=== PATIENT | male | born 1950 | race Caucasian/White ===

== ENCOUNTER 2024-02-12 12:04 | Emergency (ER) | payer MEDICARE, OTHER, SELFPAY ==
[2024-02-12 12:28] VITALS: BP 121/80
[2024-02-12 12:58] LABS: ALT (SGPT) 24 U/L (0-50); AST (SGOT) 32 U/L (17-59); Albumin 4.1 g/dl (3.5-5.0); Alkaline Phosphatase 192 U/L (38-126); Blood Urea Nitrogen 22 mg/dl (9-20); Calcium 9.3 mg/dl (8.4-10.2); Carbon Dioxide 24 mmol/L (22-30); Chloride 100 mmol/L (98-107); Glucose 141 mg/dl (70-99); Potassium 4.2 mmol/L (3.5-5.1); Sodium 136 mmol/L (135-145); Total Bilirubin 1.7 mg/dl (0.2-1.3); Total Protein 6.8 g/dl (6.3-8.2); eGFR > 60.00
[2024-02-12 12:59] LABS: COVID-19 Antigen Negative (Negative)
[2024-02-12 13:02] LABS: % Basophils 0.4 % (0-2); % Eosinophils 0.4 % (0-6); % Lymphocytes 5.2 % (20.5-51.1); % Monocytes 7.9 % (1.7-9.3); % Neutrophils 85.1 % (42.2-75.2); Absolute Basophils 0.1 10^3/uL (0-0.2); Absolute Eosinophils 0.1 10^3/uL (0-0.7); Absolute Immature Granulocytes 0.2 10^3/uL (0-0.05); Absolute Lymphocytes 0.9 10^3/uL (1.2-3.4); Absolute Monocytes 1.3 10^3/uL (0.1-0.6); Absolute Neutrophils 14.1 10^3/uL (1.4-6.5); Hematocrit 39.3 % (39.0-52.0); Hemoglobin 13.8 g/dL (13.0-18.0); Mean Corp Hgb Conc. 35.1 g/dL (33.0-37.0); Mean Corpuscular Hgb 33.3 pg (27.0-31.0); Mean Corpuscular Volume 94.7 fL (80.0-94.0); Mean Platelet Volume 12.9 fL (7.4-10.4); Nucleated Red Blood Cells % 0 % (-); Platelet Count 148 10^3/uL (130-400); Red Blood Cell Count 4.15 10^6/uL (4.70-6.10); Red Cell Dist. Width 14.6 % (11.5-14.5); White Blood Cell Count 16.5 10^3/uL (4.8-10.8)
[2024-02-12 16:30] VITALS: BP 124/68
[2024-02-12 18:14] LABS: Urine Albumin Negative (Neg - Trace); Urine Bilirubin Negative (Negative); Urine Character Clear (Clear); Urine Color Yellow; Urine Glucose Negative (Negative); Urine Ketone Negative (Negative); Urine Leukocyte Negative (Negative); Urine Nitrite Negative (Negative); Urine Occult Blood Negative (Negative); Urine Urobilinogen Negative (Neg - 1+)
[2024-02-12] MEDS: AUGMENTIN 875 MG/125 MG 1 TABLET PO (19:10)
[2024-02-12] MEDS: ZITHROMAX 500 MG PO (19:10)
[2024-02-12 19:18] VITALS: BP 119/74
--- NOTE | 2024-02-12 23:39 | ED.GENMED ---
History of Present Illness
General
Chief Complaint: Cold/Flu/URI Symptoms
Source: patient
Exam Limitations: none
Time Seen by Provider: 02/12/24 15:43
Nursing documentation reviewed up to this point in time: agreed with
History of Present Illness
History of Present Illness:
Patient to ED wt complaint of right flank pain. Pain started 2 days ago but became worse today. Denies fevver/chills. Reports history of kidney stones in past. Brought self to ED for eval.
Past History
Past History
ED Past Medical History: CAD, HTN, OR and Other (Liver transplant)
ED Past Surgical History: Other (liver transplant, AAA)
Social History
Tobacco: Smoker
Alcohol: Former
Drug: None
Personal:
Living: with family
Employment: Not employed
Family History
Family History: CAD and Other (Noncontributory)
Review of Systems
Review of Systems
Allergies reviewed?: Yes
All Other Systems: ROS reviewed and negative except as documented in HPI and ROS
Constitutional: Reports no symptoms
EENT: Reports no symptoms
Respiratory: Reports no symptoms
Cardiac: Reports no symptoms
ABD/GI: Reports no symptoms
: Reports flank pain
Musculoskeletal: Reports no symptoms
Skin: Reports no symptoms
Neurological: Reports no symptoms
Psychiatric: Reports no symptoms
Phy Exam
General Physical Exam
General Presentation: well appearing and no apparent distress
General age: appears stated age
General Skin: warm and dry
General Habitus: normal
General Mental: alert
General Hydration: appears well hydrated
Cardiovascular Exam
Cardiovascular Exam: regular rate/rhythm and no edema
Pulmonary Exam
Pulmonary Exam: lungs clear, no respiratory distress and chest non tender
Gastrointestinal Exam
Gastrointestinal Exam: normal bowel sounds, non tender, soft and no organomegaly
Musculoskeletal Exam
Musculoskeletal Exam: full ROM and neuro vasc intact
Skin Exam
Skin Exam: normal color, warm/dry and no rash
Psychiatric Exam
Psychiatric Exam: normal mood/affect
Course
Orders/Labs/Results
Orders:
Orders
02/12/24 12:37
COVID-19 Antigen Urgent
Source: Nasal Swab
Complete Blood Count/With Diff Urgent
Comprehensive Metabolic Panel Urgent
Influenza A+B Rapid Molecular Urgent
KIMMY Source: Nasal Swab
Specimen Description:
02/12/24 16:41
CT Abd/pel Without Iv Or Oral Urgent
Comment:
Reason For Exam: right flank pain
02/12/24 18:09
Urinalysis Reflex To Culture Urgent
Date Specimen was Collected: 02/12/24
Time Specimen was Collected: 18:08
02/12/24 18:10
CR Chest - 2 Views Urgent
Comment:
Reason For Exam: cough
02/12/24 18:58
Amoxicillin 875 mg/Clav 125 mg [Augmentin 875 mg/125 mg] 1 tablet PO NOW STA
02/12/24 19:01
Azithromycin [Zithromax] 500 mg PO NOW STA
Abnormal Lab Results
02/12/24
12:37
WBC 16.5 H 10^3/uL
(4.8-10.8)
RBC 4.15 L 10^6/uL
(4.70-6.10)
MCV 94.7 H fL
(80.0-94.0)
MCH 33.3 H pg
(27.0-31.0)
RDW 14.6 H %
(11.5-14.5)
MPV 12.9 H fL
(7.4-10.4)
Abs Immat Gran (auto) 0.2 H 10^3/uL
(0-0.05)
Absolute Neuts (auto) 14.1 H 10^3/uL
(1.4-6.5)
Absolute Lymphs (auto) 0.9 L 10^3/uL
(1.2-3.4)
Absolute Monos (auto) 1.3 H 10^3/uL
(0.1-0.6)
Immature Gran % 1.0 H %
(0-0.5)
Neutrophils % 85.1 H %
(42.2-75.2)
Lymphocytes % 5.2 L %
(20.5-51.1)
BUN 22 H mg/dl
(9-20)
Glucose 141 H mg/dl
(70-99)
Total Bilirubin 1.7 H mg/dl
(0.2-1.3)
Alkaline Phosphatase 192 H U/L
(38-126)
02/12/24 12:37
02/12/24 12:37
Vital Signs
Initial and Last Documented VS:
Initial Vital Signs
Temp Pulse Resp BP Pulse Ox
100.4 F H 94 18 121/80 94
02/12/24 12:28 02/12/24 12:28 02/12/24 12:28 02/12/24 12:28 02/12/24 12:28
Last Documented Vital Signs
Temp Pulse Resp BP Pulse Ox
100.4 F H 69 20 119/74 98
02/12/24 12:28 02/12/24 19:18 02/12/24 19:18 02/12/24 19:18 02/12/24 19:18
*Radiology
Radiology exam reviewed: radiology read reviewed
*Pulse Oximetry
Patient hypoxic: no
*Critical Care Note
Total Time (30-74mins, 75-104mins- exclusive of procedures): Not Applicable
Update Note
Update Note:
CT report reviewed. No evidence of renal stones, however finding of opacity to left lung base concerning for pneumonia. CXR obtained which confirms findings. He is afebrile. No respiratory distress. Pulse ox 97% RA. Reports occasional cough but
states he just stopped smoking and coughing has decreased. Labs reviewed. WBC 16. WIll [address] on augmentin in dept. Rx sent to his pharmacy. Given instructions on s/s to return to ED and he is agreeable to plan.
ED Attending Note
-
Portions of this chart may have been created with voice recognition software.� Occasional wrong word or��sound alike� substitutions may have occurred due to the inherent limitations of voice recognition software.
Discharge Plan
Departure
Patient Disposition: Home (Routine Discharge)
Date of Disposition: 02/12/24
Time of Disposition: 18:59
Patient with high blood pressure during this ER visit?: No
Condition: Good
Covid-19: Not Applicable
Discharge Problem:
Pneumonia
Instructions: Pneumonia
Prescriptions:
New
amoxicillin-pot clavulanate 875-125 mg tablet
1 tab PO BID Qty: 20 0RF
azithromycin [Zithromax] 250 mg tablet
250 mg PO DAILY Qty: 4 0RF
No Action
multivitamin [One Daily Multivitamin] 1 EACH tablet
1 ea PO DAILY
calcium carbonate-vitamin D3 [Calcium 500 + D] 1 EACH tablet
500 mg PO BID
tamsulosin 0.4 MG capsule
0.4 mg PO DAILY
Patient Comments:
pt states that his MD d/c'd yet he still takes to finish his supply
tacrolimus 1 MG capsule
0.5 mg PO BID
albuterol sulfate [Proventil HFA] 90 MCG/PUFF HFA aerosol inhaler
2 puff PRN PRN (Reason: SOB)
Patient Comments:
daily prn
tiotropium bromide [Spiriva Respimat] 1 PUFF mist
2 puff inhalation DAILY
Bydesonide
2 inhalation BID
atorvastatin 40 MG tablet
40 mg PO QPM Qty: 30 6RF
clopidogrel 75 MG tablet
75 mg PO DAILY Qty: 30 11RF
pantoprazole 40 MG tablet,delayed release (DR/EC)
40 mg PO DAILY Qty: 30 3RF
metoprolol succinate 25 MG tablet extended release 24 hr
25 mg PO DAILY Qty: 30 3RF
lisinopril 2.5 MG tablet
2.5 mg PO DAILY Qty: 30 3RF
apixaban [Eliquis] 5 MG tablet
5 mg PO BID Qty: 60 3RF
prednisone 10 MG tablet
10 mg PO .TAPER Qty: 30 0RF
Rx Instructions:
Take 40mg daily x3days, 30mg daily x3days,
20mg daily x3days, 10mg daily x3days.
tramadol 50 MG tablet
50 mg PO Q6HPRN PRN (Reason: pain) Qty: 8 0RF
oxycodone 5 MG tablet
5 mg PO Q4HPRN PRN (Reason: Pain) Qty: 12 0RF
cyclobenzaprine 5 mg tablet
5 mg PO HS PRN (Reason: muscle spasm) Qty: 10 0RF
acetaminophen-codeine 300-30 mg tablet
1 tab PO Q8H Qty: 10 0RF
Referrals:
UNKNOWN - PT DOES,NOT KNOW [Family Provider] -
Activity Restrictions/Additional Instructions:
Return to the emergency department immediately for any changes in/worsening of your symptoms.
Interventions
Interventions:
*Risk Screen - Suicide Last Done: 02/12/24 12:32
*General Assessment Last Done: 02/12/24 17:00
*Neglect/Abuse Screening Last Done: 02/12/24 17:00
*ED COVID-19 Vaccine History Last Done: 02/12/24 17:00
*Nursing Disposition Last Done: 02/12/24 19:18
ED- Pulmonary Assessment Last Done: 02/12/24 17:00
Discharge Date and Time
Discharge Date/Time: 02/12/24 19:19
Print Language: INDONESIAN
== END 2024-02-12 19:19 | disposition home or self-care (01) ==
LOC: EMR 12:04
PROVIDERS: Emergency Medicine; Nurse Practitioner; EMERGENCY PHYSICIAN Student in an Organized Health Care Education/Training Program
DX: J18.9 Pneumonia, unspecified organism (principal); I25.10 Atherosclerotic heart disease of native coronary artery without angina pectoris; I10 Essential (primary) hypertension; I25.2 Old myocardial infarction; Z94.4 Liver transplant status; F17.200 Nicotine dependence, unspecified, uncomplicated
CPT/HCPCS: 99284; 71046; 74176; 80053; 81003; 85025; 87502; 87811

== ENCOUNTER 2024-04-28 08:00 | Inpatient (IN) | payer MEDICARE, OTHER, SELFPAY ==
[2024-04-25] VITALS (13 sets, daily range): BP systolic 95–177; BP diastolic 59–103; BMI 28.9; BMI 28.1
[2024-04-25 09:08] LABS: Hematocrit 36.3 % (39.0-52.0); Hemoglobin 12.7 g/dL (13.0-18.0); Mean Corpuscular Hgb 32.8 pg (27.0-31.0); Mean Corpuscular Volume 93.8 fL (80.0-94.0); Mean Platelet Volume 12.5 fL (7.4-10.4); Platelet Count 216 10^3/uL (130-400); Red Blood Cell Count 3.87 10^6/uL (4.70-6.10); Red Cell Dist. Width 14.4 % (11.5-14.5); White Blood Cell Count 32.8 10^3/uL (4.8-10.8)
[2024-04-25 09:23] LABS: ALT (SGPT) 31 U/L (0-50); AST (SGOT) 46 U/L (17-59); Alkaline Phosphatase 264 U/L (38-126); Blood Urea Nitrogen 39 mg/dl (9-20); Carbon Dioxide 19 mmol/L (22-30); Chloride 103 mmol/L (98-107); Glucose 216 mg/dl (70-99); Lipase 58 U/L (23-300); Potassium 4.7 mmol/L (3.5-5.1); Sodium 135 mmol/L (135-145); Total Bilirubin 2.1 mg/dl (0.2-1.3); Total Protein 5.9 g/dl (6.3-8.2); eGFR 41.78
[2024-04-25 09:37] LABS: % Basophils 0.2 % (0-2); % Immature Granulocytes 1.5 % (0-0.5); % Monocytes 5.7 % (1.7-9.3); % Neutrophils 89.6 % (42.2-75.2); Absolute Basophils 0.1 10^3/uL (0-0.2); Absolute Immature Granulocytes 0.5 10^3/uL (0-0.05); Absolute Monocytes 1.9 10^3/uL (0.1-0.6); Absolute Neutrophils 29.4 10^3/uL (1.4-6.5); Nucleated Red Blood Cells % 0 % (-)
[2024-04-25 09:45] LABS: COVID-19 Antigen Negative (Negative)
[2024-04-25] MEDS: NSS 1000 IV ×2 (09:45→21:55)
[2024-04-25 10:13] LABS: Lactic Acid 2.2 mmol/L (0.7-2.0)
--- NOTE | 2024-04-25 11:02 | ED.GENMED ---
History of Present Illness
<Javier Moore Jr., PA-C - Last Filed: 04/28/24 18:42>
General
Chief Complaint: Fever
Source: patient and family
Exam Limitations: none
Time Seen by Provider: 04/25/24 09:26
Nursing documentation reviewed up to this point in time: agreed with
History of Present Illness
History of Present Illness:
73-year-old male with past medical history of Alzheimer's, COPD, AAA, CAD, cirrhosis presenting to the emergency department today with concerns of bodyaches fever runny nose decreased oral intake over the past 4 days. Symptoms have not been
improving have not significant been worsening either. Denies shortness of breath chest pain abdominal pain denies any significant discomfort at this point. Has a mild cough.
Past History
<Javier Moore Jr., PA-C - Last Filed: 04/28/24 18:42>
Past History
ED Past Medical History: CAD, HTN, NE and Other (Liver transplant)
ED Past Surgical History: Other (liver transplant, AAA)
Social History
Tobacco: Smoker
Alcohol: Former
Drug: None
Personal:
Living: with family
Employment: Not employed
Family History
Family History: CAD and Other (Noncontributory)
Review of Systems
<Javier Moore Jr., PA-C - Last Filed: 04/28/24 18:42>
Review of Systems
Allergies reviewed?: Yes
All Other Systems: ROS reviewed and negative except as documented in HPI and ROS
Phy Exam
<RADHA Tracy Jr. Last Filed: 04/28/24 18:42>
Physical Exam
Physical Exam:
GENERAL: Alert , in no apparent distress
EYE: pupils equal and reactive
NECK: Supple, no significant adenopathy.
ENT: Swollen boggy nasal turbinates o/p clr, mmm.
CARDIAC: Regular rate and rhythm .
LUNGS: Clear breath sounds bilaterally, no acute respiratory distress, no wheezes/rales/rhonchi
ABDOMEN: Soft, without focal tenderness, no r/g, no cvat
NEUROLOGICAL: Alert and oriented, no focal neuro deficits
SKIN: Warm and dry, skin intact.
MUSCULOSKELETAL: No edema, well perfused.
PSYCH: Normal and appropriate interaction.
Course
<Javier Moore Jr., PA-C - Last Filed: 04/28/24 18:42>
Orders/Labs/Results
Orders:
Orders
04/25/24
DIETARY CONSULT Routine
Reason for Consult: weight loss without trying
04/25/24 08:58
COVID-19 Antigen Urgent
Source: Nasal Swab
Complete Blood Count/With Diff Urgent
Comprehensive Metabolic Panel Urgent
Lipase Urgent
Influenza A+B Rapid Molecular Urgent
IKMMY Source: Nasal Swab
Specimen Description:
04/25/24 09:28
0.9% Sodium Chloride 1000 ml [Nss] 1,000 ml IV BOLUS
04/25/24 09:36
Chest [CR Chest - 2 Views ] Urgent
Comment:
Reason For Exam: cough
04/25/24 09:51
Lactic Acid Urgent
04/25/24 13:24
CT Abd/Pel (IV only)-DH only Urgent
Comment:
Reason For Exam: fever, leukocystosis, diff unrianting abd pain
0.9% Sodium Chloride 500 ml [Nss] 500 ml IV BOLUS
04/25/24 Dinner
Clear Liquid
At Your Request: Limited Participation
04/25/24 15:59
Lactate Level [Lactic Acid] Urgent
Blood Culture Q30M
KIMMY Source: Blood/Venous
Specimen Description:
Blood Culture Q30M
KIMMY Source: Blood/Venous
Specimen Description:
04/25/24 17:36
Urinalysis Reflex To Culture Urgent
Date Specimen was Collected: 04/25/24
Time Specimen was Collected: 13:21
Urine Microscopic Reflex Cult Urgent
Urine Culture Urgent
KIMMY Source: U
Specimen Description:
Date Specimen was Collected: 04/25/24
Time Specimen was Collected: 13:21
04/25/24 18:51
Admit/Transfer Patient As Directed
Co-Sign Provider:
Level of Care: Observation services
Assign to:: Medical/Surgical
Physician / Group: helena
Diagnosis: viral enteritis
PRN Pain Medication Management As Directed
May give lesser potent ordered pain med per pt: Yes
preference::
Protocol:: Medication orders for pain may be administered in a
manner that supports deferring to patient preference
when the pt is:
- Requesting an ordered lesser potent pain medication.
Least to most potent pain medications are defined
as: acetaminophen < NSAID < tramadol < opioids
(morphine, oxycodone, hydromorphone).
- Requesting a lesser dose of the same medication IF
ORDERED.
- Requesting a less intrusive route of administration
if both routes are prescribed by the provider (PO <
IV).
04/25/24 18:52
Code Status As Directed
Resuscitation Status: Do not resuscitate
Reached after discussion with pt or family/Healthcare POA: Yes
DNR Bracelet Application ONCE
04/25/24 19:53
0.9% Sodium Chloride 1000 ml [Nss] 1,000 ml IV 80 mls/hr
HYDROmorphone [Dilaudid] 0.5 mg IV Q4HPRN PRN
Ondansetron Injectable [Zofran] 4 mg IV Q6HPRN PRN
04/25/24 19:53
Activity As Directed
Activity Level: As Tolerated
Vital Signs As Directed
Frequency: Per unit guidelines
DX Deep Vein Thrombosis Video Routine
04/25/24 20:00
Heparin 5,000 units SC Q12
04/25/24 21:05
Albuterol [ProAIR HFA INHALER] 2 puff INH R Q6HPRN PRN
04/25/24 22:00
Flush (0.9% Sodium Chloride) [Flush (Nss)] See Dose Instructions IV PER PROTOCOL
04/25/24 23:18
MRSA Screen Routine
KIMMY Source: Nose
Specimen Description:
Pt Screening Request from Fernanda Routine
04/26/24 00:36
Melatonin 5 mg PO NOW STA
04/26/24 06:52
Complete Blood Count/With Diff IN AM
Comprehensive Metabolic Panel IN AM
04/26/24 08:00
Apixaban [Eliquis] 5 mg PO BID
Atorvastatin [Lipitor] 40 mg PO DAILY
Calcium Carbonate/Vitamin D3 [Oscal 500 + D] 500 mg PO BID
Clopidogrel Bisulfate [Plavix] 75 mg PO DAILY
Fluticasone/Salmeterol 45/21 [Advair Hfa 45/21 Mcg Inhaler] 2 puff INH R BID
Magnesium l-Lactate [Mag-Tab Sr] 84 mg PO BID
Metoprolol Xl [Toprol Xl] 150 mg PO DAILY
Multivitamin [Theragran] 1 tablet PO DAILY
Pantoprazole [Protonix] 40 mg PO DAILY
Pregabalin [Lyrica] 200 mg PO BID
Tacrolimus [Prograf] 1.5 mg PO BID
Tiotropium [place] 2.5 Mcg [Spiriva Respimat 2.5 Mcg] 2 puff INH R DAILY
04/26/24 13:13
Request for Physical Therapy [NOTICE] Routine
04/26/24 22:00
Piperacillin/Tazo 3.375 Gram [Zosyn] 3.375 gram in 50 ml IV Q6H
04/27/24 06:52
BMP [Basic Metabolic Panel] IN AM
CBC/No Diff [Complete Blood Count/No Diff] IN AM
04/27/24 09:49
Pt Eval And Treat Routine
Activity Level: As Tolerated
04/27/24 Lunch
Full Liquids
At Your Request: Full Participation
Does patient need a safe tray?: No
04/27/24 10:54
Oxycodone [Roxicodone] 5 mg PO Q4HPRN PRN
04/28/24 08:02
BMP [Basic Metabolic Panel] IN AM
CBC/No Diff [Complete Blood Count/No Diff] IN AM
04/28/24 13:34
Blood Culture Routine
KIMMY Source: Blood/Venous
Specimen Description:
Abnormal Lab Results
04/25/24 04/25/24 04/25/24
08:58 09:51 17:36
WBC 32.8 H 10^3/uL
(4.8-10.8)
RBC 3.87 L 10^6/uL
(4.70-6.10)
Hgb 12.7 L g/dL
(13.0-18.0)
Hct 36.3 L %
(39.0-52.0)
MCV
MCH 32.8 H pg
(27.0-31.0)
MPV 12.5 H fL
(7.4-10.4)
Abs Immat Gran (auto) 0.5 H 10^3/uL
(0-0.05)
Absolute Neuts (auto) 29.4 H 10^3/uL
(1.4-6.5)
Absolute Lymphs (auto) 1.0 L 10^3/uL
(1.2-3.4)
Absolute Monos (auto) 1.9 H 10^3/uL
(0.1-0.6)
Immature Gran % 1.5 H %
(0-0.5)
Neutrophils % 89.6 H %
(42.2-75.2)
Lymphocytes % 3.0 L %
(20.5-51.1)
Monocytes %
Sodium
Carbon Dioxide 19 L mmol/L
(22-30)
BUN 39 H mg/dl
(9-20)
Creatinine 1.7 H mg/dL
(0.7-1.3)
Glucose 216 H mg/dl
(70-99)
Lactic Acid 2.2 H mmol/L
(0.7-2.0)
Total Bilirubin 2.1 H mg/dl
(0.2-1.3)
Alkaline Phosphatase 264 H U/L
(38-126)
Total Protein 5.9 L g/dl
(6.3-8.2)
Albumin 3.0 L g/dl
(3.5-5.0)
Urine Bilirubin 1+ A
(Negative)
Leukocyte Esterase Rfl 1+ A
(Negative)
Urine Bacteria (Reflex) Few A
(Negative)
Urine Albumin (Reflex) 2+ A
(Neg - Trace)
04/26/24 04/27/24
06:52 06:52
WBC 24.6 H 10^3/uL 18.3 H 10^3/uL
(4.8-10.8) (4.8-10.8)
RBC 3.66 L 10^6/uL 3.55 L 10^6/uL
(4.70-6.10) (4.70-6.10)
Hgb 12.0 L g/dL 11.5 L g/dL
(13.0-18.0) (13.0-18.0)
Hct 34.1 L % 33.4 L %
(39.0-52.0) (39.0-52.0)
MCV 94.1 H fL
(80.0-94.0)
MCH 32.8 H pg 32.4 H pg
(27.0-31.0) (27.0-31.0)
MPV 12.6 H fL 12.1 H fL
(7.4-10.4) (7.4-10.4)
Abs Immat Gran (auto) 0.5 H 10^3/uL
(0-0.05)
Absolute Neuts (auto) 20.7 H 10^3/uL
(1.4-6.5)
Absolute Lymphs (auto) 0.9 L 10^3/uL
(1.2-3.4)
Absolute Monos (auto) 2.4 H 10^3/uL
(0.1-0.6)
Immature Gran % 2.2 H %
(0-0.5)
Neutrophils % 84.1 H %
(42.2-75.2)
Lymphocytes % 3.7 L %
(20.5-51.1)
Monocytes % 9.7 H %
(1.7-9.3)
Sodium 134 L mmol/L
(135-145)
Carbon Dioxide 17 L mmol/L 21 L mmol/L
(22-30) (22-30)
BUN 46 H mg/dl 31 H mg/dl
(9-20) (9-20)
Creatinine
Glucose 197 H mg/dl 212 H mg/dl
(70-99) (70-99)
Lactic Acid
Total Bilirubin
Alkaline Phosphatase 245 H U/L
(38-126)
Total Protein 5.7 L g/dl
(6.3-8.2)
Albumin 2.9 L g/dl
(3.5-5.0)
Urine Bilirubin
Leukocyte Esterase Rfl
Urine Bacteria (Reflex)
Urine Albumin (Reflex)
04/27/24 06:52
04/27/24 06:52
Vital Signs
Initial and Last Documented VS:
Initial Vital Signs
Temp Pulse Resp BP Pulse Ox
97.6 F 94 20 102/71 98
04/25/24 08:51 04/25/24 08:51 04/25/24 08:51 04/25/24 08:51 04/25/24 08:51
Last Documented Vital Signs
Temp Pulse Resp BP Pulse Ox
99.4 F 94 20 118/60 98
04/28/24 15:10 04/28/24 15:10 04/28/24 15:10 04/28/24 15:10 04/28/24 15:10
<Froy Velázquez, DO - Last Filed: 04/25/24 13:31>
Orders/Labs/Results
Orders:
Orders
04/25/24
DIETARY CONSULT Routine
Reason for Consult: weight loss without trying
04/25/24 08:58
COVID-19 Antigen Urgent
Source: Nasal Swab
Complete Blood Count/With Diff Urgent
Comprehensive Metabolic Panel Urgent
Lipase Urgent
Influenza A+B Rapid Molecular Urgent
KIMMY Source: Nasal Swab
Specimen Description:
04/25/24 09:28
0.9% Sodium Chloride 1000 ml [Nss] 1,000 ml IV BOLUS
04/25/24 09:36
Chest [CR Chest - 2 Views ] Urgent
Comment:
Reason For Exam: cough
04/25/24 09:51
Lactic Acid Urgent
04/25/24 13:24
CT Abd/Pel (IV only)-DH only Urgent
Comment:
Reason For Exam: fever, leukocystosis, diff unrianting abd pain
0.9% Sodium Chloride 500 ml [Nss] 500 ml IV BOLUS
04/25/24 Dinner
Clear Liquid
At Your Request: Limited Participation
04/25/24 15:59
Lactate Level [Lactic Acid] Urgent
Blood Culture Q30M
KIMMY Source: Blood/Venous
Specimen Description:
Blood Culture Q30M
KIMMY Source: Blood/Venous
Specimen Description:
04/25/24 17:36
Urinalysis Reflex To Culture Urgent
Date Specimen was Collected: 04/25/24
Time Specimen was Collected: 13:21
Urine Microscopic Reflex Cult Urgent
Urine Culture Urgent
KIMMY Source: U
Specimen Description:
Date Specimen was Collected: 04/25/24
Time Specimen was Collected: 13:21
04/25/24 18:51
Admit/Transfer Patient As Directed
Co-Sign Provider:
Level of Care: Observation services
Assign to:: Medical/Surgical
Physician / Group: helena
Diagnosis: viral enteritis
PRN Pain Medication Management As Directed
May give lesser potent ordered pain med per pt: Yes
preference::
Protocol:: Medication orders for pain may be administered in a
manner that supports deferring to patient preference
when the pt is:
- Requesting an ordered lesser potent pain medication.
Least to most potent pain medications are defined
as: acetaminophen < NSAID < tramadol < opioids
(morphine, oxycodone, hydromorphone).
- Requesting a lesser dose of the same medication IF
ORDERED.
- Requesting a less intrusive route of administration
if both routes are prescribed by the provider (PO <
IV).
04/25/24 18:52
Code Status As Directed
Resuscitation Status: Do not resuscitate
Reached after discussion with pt or family/Healthcare POA: Yes
DNR Bracelet Application ONCE
04/25/24 19:53
0.9% Sodium Chloride 1000 ml [Nss] 1,000 ml IV 80 mls/hr
HYDROmorphone [Dilaudid] 0.5 mg IV Q4HPRN PRN
Ondansetron Injectable [Zofran] 4 mg IV Q6HPRN PRN
04/25/24 19:53
Activity As Directed
Activity Level: As Tolerated
Vital Signs As Directed
Frequency: Per unit guidelines
DX Deep Vein Thrombosis Video Routine
04/25/24 20:00
Heparin 5,000 units SC Q12
04/25/24 21:05
Albuterol [ProAIR HFA INHALER] 2 puff INH R Q6HPRN PRN
04/25/24 22:00
Flush (0.9% Sodium Chloride) [Flush (Nss)] See Dose Instructions IV PER PROTOCOL
04/25/24 23:18
MRSA Screen Routine
KIMMY Source: Nose
Specimen Description:
Pt Screening Request from Fernanda Routine
04/26/24 00:36
Melatonin 5 mg PO NOW STA
04/26/24 06:52
Complete Blood Count/With Diff IN AM
Comprehensive Metabolic Panel IN AM
04/26/24 08:00
Apixaban [Eliquis] 5 mg PO BID
Atorvastatin [Lipitor] 40 mg PO DAILY
Calcium Carbonate/Vitamin D3 [Oscal 500 + D] 500 mg PO BID
Clopidogrel Bisulfate [Plavix] 75 mg PO DAILY
Fluticasone/Salmeterol 45/21 [Advair Hfa 45/21 Mcg Inhaler] 2 puff INH R BID
Magnesium l-Lactate [Mag-Tab Sr] 84 mg PO BID
Metoprolol Xl [Toprol Xl] 150 mg PO DAILY
Multivitamin [Theragran] 1 tablet PO DAILY
Pantoprazole [Protonix] 40 mg PO DAILY
Pregabalin [Lyrica] 200 mg PO BID
Tacrolimus [Prograf] 1.5 mg PO BID
Tiotropium [place] 2.5 Mcg [Spiriva Respimat 2.5 Mcg] 2 puff INH R DAILY
04/26/24 13:13
Request for Physical Therapy [NOTICE] Routine
04/26/24 22:00
Piperacillin/Tazo 3.375 Gram [Zosyn] 3.375 gram in 50 ml IV Q6H
04/27/24 06:52
BMP [Basic Metabolic Panel] IN AM
CBC/No Diff [Complete Blood Count/No Diff] IN AM
04/27/24 09:49
Pt Eval And Treat Routine
Activity Level: As Tolerated
04/27/24 Lunch
Full Liquids
At Your Request: Full Participation
Does patient need a safe tray?: No
04/27/24 10:54
Oxycodone [Roxicodone] 5 mg PO Q4HPRN PRN
04/28/24 08:02
BMP [Basic Metabolic Panel] IN AM
CBC/No Diff [Complete Blood Count/No Diff] IN AM
04/28/24 13:34
Blood Culture Routine
KIMMY Source: Blood/Venous
Specimen Description:
Abnormal Lab Results
04/25/24 04/25/24 04/25/24
08:58 09:51 17:36
WBC 32.8 H 10^3/uL
(4.8-10.8)
RBC 3.87 L 10^6/uL
(4.70-6.10)
Hgb 12.7 L g/dL
(13.0-18.0)
Hct 36.3 L %
(39.0-52.0)
MCV
MCH 32.8 H pg
(27.0-31.0)
MPV 12.5 H fL
(7.4-10.4)
Abs Immat Gran (auto) 0.5 H 10^3/uL
(0-0.05)
Absolute Neuts (auto) 29.4 H 10^3/uL
(1.4-6.5)
Absolute Lymphs (auto) 1.0 L 10^3/uL
(1.2-3.4)
Absolute Monos (auto) 1.9 H 10^3/uL
(0.1-0.6)
Immature Gran % 1.5 H %
(0-0.5)
Neutrophils % 89.6 H %
(42.2-75.2)
Lymphocytes % 3.0 L %
(20.5-51.1)
Monocytes %
Sodium
Carbon Dioxide 19 L mmol/L
(22-30)
BUN 39 H mg/dl
(9-20)
Creatinine 1.7 H mg/dL
(0.7-1.3)
Glucose 216 H mg/dl
(70-99)
Lactic Acid 2.2 H mmol/L
(0.7-2.0)
Total Bilirubin 2.1 H mg/dl
(0.2-1.3)
Alkaline Phosphatase 264 H U/L
(38-126)
Total Protein 5.9 L g/dl
(6.3-8.2)
Albumin 3.0 L g/dl
(3.5-5.0)
Urine Bilirubin 1+ A
(Negative)
Leukocyte Esterase Rfl 1+ A
(Negative)
Urine Bacteria (Reflex) Few A
(Negative)
Urine Albumin (Reflex) 2+ A
(Neg - Trace)
04/26/24 04/27/24
06:52 06:52
WBC 24.6 H 10^3/uL 18.3 H 10^3/uL
(4.8-10.8) (4.8-10.8)
RBC 3.66 L 10^6/uL 3.55 L 10^6/uL
(4.70-6.10) (4.70-6.10)
Hgb 12.0 L g/dL 11.5 L g/dL
(13.0-18.0) (13.0-18.0)
Hct 34.1 L % 33.4 L %
(39.0-52.0) (39.0-52.0)
MCV 94.1 H fL
(80.0-94.0)
MCH 32.8 H pg 32.4 H pg
(27.0-31.0) (27.0-31.0)
MPV 12.6 H fL 12.1 H fL
(7.4-10.4) (7.4-10.4)
Abs Immat Gran (auto) 0.5 H 10^3/uL
(0-0.05)
Absolute Neuts (auto) 20.7 H 10^3/uL
(1.4-6.5)
Absolute Lymphs (auto) 0.9 L 10^3/uL
(1.2-3.4)
Absolute Monos (auto) 2.4 H 10^3/uL
(0.1-0.6)
Immature Gran % 2.2 H %
(0-0.5)
Neutrophils % 84.1 H %
(42.2-75.2)
Lymphocytes % 3.7 L %
(20.5-51.1)
Monocytes % 9.7 H %
(1.7-9.3)
Sodium 134 L mmol/L
(135-145)
Carbon Dioxide 17 L mmol/L 21 L mmol/L
(22-30) (22-30)
BUN 46 H mg/dl 31 H mg/dl
(9-20) (9-20)
Creatinine
Glucose 197 H mg/dl 212 H mg/dl
(70-99) (70-99)
Lactic Acid
Total Bilirubin
Alkaline Phosphatase 245 H U/L
(38-126)
Total Protein 5.7 L g/dl
(6.3-8.2)
Albumin 2.9 L g/dl
(3.5-5.0)
Urine Bilirubin
Leukocyte Esterase Rfl
Urine Bacteria (Reflex)
Urine Albumin (Reflex)
04/27/24 06:52
04/27/24 06:52
Vital Signs
Initial and Last Documented VS:
Initial Vital Signs
Temp Pulse Resp BP Pulse Ox
97.6 F 94 20 102/71 98
04/25/24 08:51 04/25/24 08:51 04/25/24 08:51 04/25/24 08:51 04/25/24 08:51
Last Documented Vital Signs
Temp Pulse Resp BP Pulse Ox
99.4 F 94 20 118/60 98
04/28/24 15:10 04/28/24 15:10 04/28/24 15:10 04/28/24 15:10 04/28/24 15:10
<Yaima Heart PA-C - Last Filed: 04/26/24 00:49>
Orders/Labs/Results
Orders:
Orders
04/25/24
DIETARY CONSULT Routine
Reason for Consult: weight loss without trying
04/25/24 08:58
COVID-19 Antigen Urgent
Source: Nasal Swab
Complete Blood Count/With Diff Urgent
Comprehensive Metabolic Panel Urgent
Lipase Urgent
Influenza A+B Rapid Molecular Urgent
KIMMY Source: Nasal Swab
Specimen Description:
04/25/24 09:28
0.9% Sodium Chloride 1000 ml [Nss] 1,000 ml IV BOLUS
04/25/24 09:36
Chest [CR Chest - 2 Views ] Urgent
Comment:
Reason For Exam: cough
04/25/24 09:51
Lactic Acid Urgent
04/25/24 13:24
CT Abd/Pel (IV only)-DH only Urgent
Comment:
Reason For Exam: fever, leukocystosis, diff unrianting abd pain
0.9% Sodium Chloride 500 ml [Nss] 500 ml IV BOLUS
04/25/24 Dinner
Clear Liquid
At Your Request: Limited Participation
04/25/24 15:59
Lactate Level [Lactic Acid] Urgent
Blood Culture Q30M
KIMMY Source: Blood/Venous
Specimen Description:
Blood Culture Q30M
KIMMY Source: Blood/Venous
Specimen Description:
04/25/24 17:36
Urinalysis Reflex To Culture Urgent
Date Specimen was Collected: 04/25/24
Time Specimen was Collected: 13:21
Urine Microscopic Reflex Cult Urgent
Urine Culture Urgent
KIMMY Source: U
Specimen Description:
Date Specimen was Collected: 04/25/24
Time Specimen was Collected: 13:21
04/25/24 18:51
Admit/Transfer Patient As Directed
Co-Sign Provider:
Level of Care: Observation services
Assign to:: Medical/Surgical
Physician / Group: helena
Diagnosis: viral enteritis
PRN Pain Medication Management As Directed
May give lesser potent ordered pain med per pt: Yes
preference::
Protocol:: Medication orders for pain may be administered in a
manner that supports deferring to patient preference
when the pt is:
- Requesting an ordered lesser potent pain medication.
Least to most potent pain medications are defined
as: acetaminophen < NSAID < tramadol < opioids
(morphine, oxycodone, hydromorphone).
- Requesting a lesser dose of the same medication IF
ORDERED.
- Requesting a less intrusive route of administration
if both routes are prescribed by the provider (PO <
IV).
04/25/24 18:52
Code Status As Directed
Resuscitation Status: Do not resuscitate
Reached after discussion with pt or family/Healthcare POA: Yes
DNR Bracelet Application ONCE
04/25/24 19:53
0.9% Sodium Chloride 1000 ml [Nss] 1,000 ml IV 80 mls/hr
HYDROmorphone [Dilaudid] 0.5 mg IV Q4HPRN PRN
Ondansetron Injectable [Zofran] 4 mg IV Q6HPRN PRN
04/25/24 19:53
Activity As Directed
Activity Level: As Tolerated
Vital Signs As Directed
Frequency: Per unit guidelines
DX Deep Vein Thrombosis Video Routine
04/25/24 20:00
Heparin 5,000 units SC Q12
04/25/24 21:05
Albuterol [ProAIR HFA INHALER] 2 puff INH R Q6HPRN PRN
04/25/24 22:00
Flush (0.9% Sodium Chloride) [Flush (Nss)] See Dose Instructions IV PER PROTOCOL
04/25/24 23:18
MRSA Screen Routine
IKMMY Source: Nose
Specimen Description:
Pt Screening Request from Fernanda Routine
04/26/24 00:36
Melatonin 5 mg PO NOW STA
04/26/24 06:52
Complete Blood Count/With Diff IN AM
Comprehensive Metabolic Panel IN AM
04/26/24 08:00
Apixaban [Eliquis] 5 mg PO BID
Atorvastatin [Lipitor] 40 mg PO DAILY
Calcium Carbonate/Vitamin D3 [Oscal 500 + D] 500 mg PO BID
Clopidogrel Bisulfate [Plavix] 75 mg PO DAILY
Fluticasone/Salmeterol 45/21 [Advair Hfa 45/21 Mcg Inhaler] 2 puff INH R BID
Magnesium l-Lactate [Mag-Tab Sr] 84 mg PO BID
Metoprolol Xl [Toprol Xl] 150 mg PO DAILY
Multivitamin [Theragran] 1 tablet PO DAILY
Pantoprazole [Protonix] 40 mg PO DAILY
Pregabalin [Lyrica] 200 mg PO BID
Tacrolimus [Prograf] 1.5 mg PO BID
Tiotropium [place] 2.5 Mcg [Spiriva Respimat 2.5 Mcg] 2 puff INH R DAILY
04/26/24 13:13
Request for Physical Therapy [NOTICE] Routine
04/26/24 22:00
Piperacillin/Tazo 3.375 Gram [Zosyn] 3.375 gram in 50 ml IV Q6H
04/27/24 06:52
BMP [Basic Metabolic Panel] IN AM
CBC/No Diff [Complete Blood Count/No Diff] IN AM
04/27/24 09:49
Pt Eval And Treat Routine
Activity Level: As Tolerated
04/27/24 Lunch
Full Liquids
At Your Request: Full Participation
Does patient need a safe tray?: No
04/27/24 10:54
Oxycodone [Roxicodone] 5 mg PO Q4HPRN PRN
04/28/24 08:02
BMP [Basic Metabolic Panel] IN AM
CBC/No Diff [Complete Blood Count/No Diff] IN AM
04/28/24 13:34
Blood Culture Routine
KIMMY Source: Blood/Venous
Specimen Description:
Abnormal Lab Results
04/25/24 04/25/24 04/25/24
08:58 09:51 17:36
WBC 32.8 H 10^3/uL
(4.8-10.8)
RBC 3.87 L 10^6/uL
(4.70-6.10)
Hgb 12.7 L g/dL
(13.0-18.0)
Hct 36.3 L %
(39.0-52.0)
MCV
MCH 32.8 H pg
(27.0-31.0)
MPV 12.5 H fL
(7.4-10.4)
Abs Immat Gran (auto) 0.5 H 10^3/uL
(0-0.05)
Absolute Neuts (auto) 29.4 H 10^3/uL
(1.4-6.5)
Absolute Lymphs (auto) 1.0 L 10^3/uL
(1.2-3.4)
Absolute Monos (auto) 1.9 H 10^3/uL
(0.1-0.6)
Immature Gran % 1.5 H %
(0-0.5)
Neutrophils % 89.6 H %
(42.2-75.2)
Lymphocytes % 3.0 L %
(20.5-51.1)
Monocytes %
Sodium
Carbon Dioxide 19 L mmol/L
(22-30)
BUN 39 H mg/dl
(9-20)
Creatinine 1.7 H mg/dL
(0.7-1.3)
Glucose 216 H mg/dl
(70-99)
Lactic Acid 2.2 H mmol/L
(0.7-2.0)
Total Bilirubin 2.1 H mg/dl
(0.2-1.3)
Alkaline Phosphatase 264 H U/L
(38-126)
Total Protein 5.9 L g/dl
(6.3-8.2)
Albumin 3.0 L g/dl
(3.5-5.0)
Urine Bilirubin 1+ A
(Negative)
Leukocyte Esterase Rfl 1+ A
(Negative)
Urine Bacteria (Reflex) Few A
(Negative)
Urine Albumin (Reflex) 2+ A
(Neg - Trace)
04/26/24 04/27/24
06:52 06:52
WBC 24.6 H 10^3/uL 18.3 H 10^3/uL
(4.8-10.8) (4.8-10.8)
RBC 3.66 L 10^6/uL 3.55 L 10^6/uL
(4.70-6.10) (4.70-6.10)
Hgb 12.0 L g/dL 11.5 L g/dL
(13.0-18.0) (13.0-18.0)
Hct 34.1 L % 33.4 L %
(39.0-52.0) (39.0-52.0)
MCV 94.1 H fL
(80.0-94.0)
MCH 32.8 H pg 32.4 H pg
(27.0-31.0) (27.0-31.0)
MPV 12.6 H fL 12.1 H fL
(7.4-10.4) (7.4-10.4)
Abs Immat Gran (auto) 0.5 H 10^3/uL
(0-0.05)
Absolute Neuts (auto) 20.7 H 10^3/uL
(1.4-6.5)
Absolute Lymphs (auto) 0.9 L 10^3/uL
(1.2-3.4)
Absolute Monos (auto) 2.4 H 10^3/uL
(0.1-0.6)
Immature Gran % 2.2 H %
(0-0.5)
Neutrophils % 84.1 H %
(42.2-75.2)
Lymphocytes % 3.7 L %
(20.5-51.1)
Monocytes % 9.7 H %
(1.7-9.3)
Sodium 134 L mmol/L
(135-145)
Carbon Dioxide 17 L mmol/L 21 L mmol/L
(22-30) (22-30)
BUN 46 H mg/dl 31 H mg/dl
(9-20) (9-20)
Creatinine
Glucose 197 H mg/dl 212 H mg/dl
(70-99) (70-99)
Lactic Acid
Total Bilirubin
Alkaline Phosphatase 245 H U/L
(38-126)
Total Protein 5.7 L g/dl
(6.3-8.2)
Albumin 2.9 L g/dl
(3.5-5.0)
Urine Bilirubin
Leukocyte Esterase Rfl
Urine Bacteria (Reflex)
Urine Albumin (Reflex)
04/27/24 06:52
04/27/24 06:52
Vital Signs
Initial and Last Documented VS:
Initial Vital Signs
Temp Pulse Resp BP Pulse Ox
97.6 F 94 20 102/71 98
04/25/24 08:51 04/25/24 08:51 04/25/24 08:51 04/25/24 08:51 04/25/24 08:51
Last Documented Vital Signs
Temp Pulse Resp BP Pulse Ox
99.4 F 94 20 118/60 98
04/28/24 15:10 04/28/24 15:10 04/28/24 15:10 04/28/24 15:10 04/28/24 15:10
<Javier Moore Jr., PA-C - Last Filed: 04/28/24 18:42>
MDM/Problems Addressed
MDM/Problems Addressed:
73-year-old male presenting to the emergency department today with concerns of having upper respiratory symptoms and bodyaches over the past 4 days. On arrival vital signs are normal patient no obvious distress does have some findings on
examination consistent with a upper respiratory viral syndrome. Labs show significant leukocytosis of 32,000 additionally mild increase of creatinine level typically around 1-1.4 currently 1.7 here. Elevated BUN from baseline. Patient given
initial liter of fluid. Still unable to make urine not retaining with roughly 100 cc on bladder scan. Given additional 500 cc of fluid. Vital signs remained stable here. Concerning his significant white count without obvious source CT scan was
ordered.
<Yaima Heart PA-C - Last Filed: 04/26/24 00:49>
*Critical Care Note
Total Time (30-74mins, 75-104mins- exclusive of procedures): Not Applicable
<Yaima Heart PA-C - Last Filed: 04/26/24 00:49>
Update Note
Update Note:
Update: Received patient in signout. CT scan shows findings of possible enteritis/ileus with concerns of possible SBO. Patient with no vomiting and tolerating p.o. intake. Patient received 1.5 L IV fluids although unable to produce urine sample.
Bladder scan without evidence of urinary retention. Urine was obtained via straight cath which patient was agreeable to and shows no evidence of infection. Given evidence of significant dehydration including lactic acidosis�will plan to admit
patient to hospitalist for further management/hydration. Findings of enteritis on CT scan suggest possible underlying viral etiology. Although leukocytosis noted�given no evidence of bacterial infection today�will hold ABX pending urine and blood
cultures. Patient accepted to hospital service in stable condition.
ED Attending Note
<Javier Moore Jr., PA-C - Last Filed: 04/28/24 18:42>
-
Portions of this chart may have been created with voice recognition software.� Occasional wrong word or��sound alike� substitutions may have occurred due to the inherent limitations of voice recognition software.
<Froy Velázquez, DO - Last Filed: 04/25/24 13:31>
ED Attending Note
Patient seen and examined by attending physician: Yes
I performed the substantive portion of visit, reviewed & personally made and approve the management plan that is documented in note by myself or ANNA.: Yes
ED Attending Note:
I have seen and evaluated the patient with a [id number] encounter. I have spoken to the advance practicer provider and involved in the medical history, the physical exam, medical decision making.
Evaluation and management service: agree unless noted differently below.
Results interpretation: agree unless noted differently below.
Focused HPI: 73-year-old male presenting with shortness of breath. He does admit to a viral type syndrome with fevers and runny nose.
Physical exam: Team somewhat uncomfortable. No significant abdominal tenderness. No acute respiratory distress
Medical Decision Making: Patient found to have significant leukocytosis with elevated lactic acid. Chest x-ray clear. Viral testing negative. Will continue to search for infectious with urinalysis and CT abdomen/pelvis. Ultimately admit given
his lab abnormalities and his discomfort
Discharge Plan
Departure
Patient Disposition: Admit
Date of Disposition: 04/25/24
Time of Disposition: 18:19
Presentation/result/management discussed w/ accepting MD/DO: Hospitalist
Discharge Problem:
Enteritis, Acute lactic acidosis
Interventions
Interventions:
*Risk Screen - Suicide Last Done: 04/25/24 08:51
*General Assessment Last Done: 04/25/24 08:51
*Neglect/Abuse Screening Last Done: 04/25/24 08:51
*ED- Fall Risk Assessment Last Done: 04/25/24 09:57
*ED COVID-19 Vaccine History Last Done: 04/25/24 08:51
*Nursing Disposition Last Done: 04/25/24 19:41
ED- Neurological Assessment Last Done: 04/25/24 09:42
ED-Skin Assessment Last Done: 04/25/24 09:42
Discharge Date and Time
Discharge Date/Time: 04/25/24 19:41
[2024-04-25] MEDS: NSS 500 IV (13:31)
[2024-04-25 16:26] LABS: Lactic Acid 1.3 mmol/L (0.7-2.0)
[2024-04-25 17:55] LABS: Urine Albumin 2+ (Neg - Trace); Urine Bilirubin 1+ (Negative); Urine Character Clear (Clear); Urine Color Yellow; Urine Glucose Negative (Negative); Urine Ketone Negative (Negative); Urine Leukocyte 1+ (Negative); Urine Nitrite Negative (Negative); Urine Occult Blood Negative (Negative); Urine Urobilinogen 1+ (Neg - 1+)
[2024-04-25 18:02] LABS: Urine Squamous Cell 0-2 /LPF (Few)
[2024-04-25 18:03] LABS: Urine Bacteria Few (Negative); Urine Red Blood Cell 0-2 /HPF (0-2)
[2024-04-25 18:04] LABS: Urine Calcium Oxalate Crystals Seen; Urine Mucus Few
--- NOTE | 2024-04-25 18:55 | HPS.HSE ---
Family Physician
-
Family Physician: Odilia Velázquez
Chief Complaint
-
diarrhea
History of Present Illness
73-year-old male past medical history of paroxysmal atrial fibrillation, CAD, PVCs, alcoholic cirrhosis, hepatitis C status post liver transplant in 2006 at [facility], multiple bile duct stents, abdominal aortic aneurysm repair and [facility],
hypertension, COPD, presenting with feeling unwell for the past 4 days. He has been having fevers, nausea, decreased oral intake, diarrhea. He also has a mild cough and some shortness of breath. Denies chest pain. He has pain in his belly. He
did not eat anything today.
He had a large diarrhea episode yesterday and no diarrhea episodes today. He did not eat anything today.
He has a history of neuropathy in his feet but also is complaining of new onset tingling in his right upper extremity. Denies pain in his upper back. He also complains of pain in his lower back pain rating down the side of the right leg. He is
only complaining of the symptoms since lying here. Denies any facial droop, difficulty speaking or swallowing, weakness.
He is a former smoker. Drinks alcohol only occasionally.
Medical History
Past Medical History
Past Medical History: Reports Other (paroxysmal atrial fibrillation, CAD, PVCs, alcoholic cirrhosis, hepatitis C status post liver transplant in 2006 at [facility], multiple bile duct stents, abdominal aortic aneurysm repair and [facility],
hypertension, COPD,)
Past Surgical History: Reports Other (liver transplant, [facility]))
Social History
Tobacco: Former Smoker
Alcohol: Occasional
Drug: None
Family History
Family History: Not pertinent
Allergies / Home Medications
Allergies reflects when Allergies were last updated in [facility].
Home Medications with original date entered in [facility]
Allergy/Medication List:
Allergies
Allergy/AdvReac Type Severity Reaction Status Date / Time
No Known Allergies Allergy Verified 04/25/24 08:53
Home Medications
calcium 500 mg (as carbonate)-vitamin D3 10 mcg (400 unit) tablet (Calcium 500 + D) 500 mg PO BID 11/30/13
tacrolimus 1 mg capsule, immediate-release 0.5 mg PO BID 06/19/15
tiotropium bromide 2.5 mcg/actuation mist for inhalation (Spiriva Respimat) 2 puff inhalation DAILY 11/28/18
apixaban 5 mg tablet (Eliquis) 5 mg PO BID #60 tabs 11/30/18
clopidogrel 75 mg tablet 75 mg PO DAILY #30 tabs 11/30/18
lisinopril 2.5 mg tablet 2.5 mg PO DAILY #30 tabs 11/30/18
metoprolol succinate 25 mg tablet,extended release 24 hr 25 mg PO DAILY #30 tabs 11/30/18
pantoprazole 40 mg tablet,delayed release 40 mg PO DAILY #30 tabs 11/30/18
albuterol sulfate 90 mcg/actuation aerosol inhaler 2 puff inhalation Q6HPRN PRN sob 04/25/24
atorvastatin 80 mg tablet 40 mg PO DAILY 04/25/24
fluticasone 100 mcg-salmeterol 50 mcg/dose blistr powdr for inhalation 2 inh inhalation BID 04/25/24
lisinopril 10 mg tablet 10 mg PO DAILY 04/25/24
magnesium oxide 420 mg tablet 420 mg PO BID 04/25/24
pregabalin 200 mg capsule 200 mg PO BID 04/25/24
therapeutic multivitamin 1 tab PO DAILY 04/25/24
Review of Systems
-
History Source: Patient
A 12 point ROS was completed and negative except as noted: Yes
Constitutional: Reports No Symptoms
EENT: Reports No Symptoms
Respiratory: Reports See HPI
Cardiac: Reports No Symptoms
Abdomen/GI: Reports See HPI
: Reports No Symptoms
Musculoskeletal: Reports No Symptoms
Skin: Reports No Symptoms
Neurological: Reports No Symptoms
Endocrine: Reports No Symptoms
Hematologic/Lymphatic: Reports No Symptoms
Psych: Reports No Symptoms
Physical Exam
Vital Signs
Vital Signs
Temp Pulse Resp BP Pulse Ox
97.9 F 92 17 124/77 97
04/25/24 09:46 04/25/24 18:30 04/25/24 18:30 04/25/24 18:00 04/25/24 17:30
Physical Exam
General: Well Developed, Well Nourished and No Apparent Distress
HEENT: NormoCephalic, Moist mucous membranes and Atraumatic
Respiratory: Clear
Cardiac: S1/S2 and Regular Rhythm; No Murmur or Rub
GI: Soft, Non Tender, Non Distended and Normal Bowel Sounds; No Organomegaly
Rectal: Deferred by Provider
Musculoskeletal: No Clubbing, No Cyanosis and No Edema
Skin: No Rash
Neuro: Nonfocal/grossly intact
Laboratory Results
-
04/25/24 08:58
04/25/24 08:58
Laboratory Results
Lactic Acid 1.3 mmol/L (0.7-2.0) 04/25/24 15:59
Total Bilirubin 2.1 mg/dl (0.2-1.3) H 04/25/24 08:58
AST 46 U/L (17-59) 04/25/24 08:58
ALT 31 U/L (0-50) 04/25/24 08:58
Alkaline Phosphatase 264 U/L (38-126) H 04/25/24 08:58
Lipase 58 U/L (23-300) 04/25/24 08:58
Data Reviewed
-
Lab Data: Labs Reviewed by me
Old Records: Reviewed
Impression/Plan
-
IMPRESSION:
PLAN:
# Likely viral enteritis/ileus
-CT abdomen pelvis shows probable enteritis/ileitis, cannot rule out developing small bowel obstruction questionable transition point
-Chest x-ray unremarkable
-Flu and COVID-negative
-Check blood cultures
-IV fluids
-Advance diet as tolerated
# Acute kidney injury
-Creatinine 1.7
-IV fluids
-Hold lisinopril
# Right-sided cervical radiculopathy and lumbar radiculopathy
-Patient has some pain in his lower back suggesting lumbar radiculopathy
-Strength is preserved
-Doubt CVA based on the history
Paroxysmal atrial fibrillation
-Continue Eliquis
-Continue metoprolol
History of CAD
-Continue Plavix, statin
History of PVCs
Alcoholic cirrhosis
Hepatitis C status post liver transplant in 2006 and [facility]
-Continue tacrolimus
History of multiple bile duct stents
Abdominal aortic aneurysm status post repair at [facility]
Essential hypertension
Chronic neuropathy
-Continue pregabalin
COPD
DNR/DNI
DVT prophylaxis�heparin
Clear liquids
--- NOTE | 2024-04-25 19:06 | PHANOTE ---
[facility] TECH 04/25/24: PAT USES [facility] FOR MEDICATIONS. CONFIRMED MEDICATIONS THROUGH [facility] VISIT ON 04/18/24. Left unconfirmed medications that were not on the visit.
--- NOTE | 2024-04-25 21:20 | PTCARENOTE ---
Pt received from ED at 2044. Pt pleasant, AAOX3, VSS, and able to ambulate into room with cane and assistance. Bed and chair alarm placed and plugged in. Pt complains of nausea at this time, pt medicated with Zofran, see MAR. Pt receptive to room
and call costa. Pt bed in lowest position and call costa within reach. Pt educated on importance of call costa usage, pt relays understanding and cooperation. Will continue with current plan of care.
[2024-04-25] MEDS: ZOFRAN 4 MG IV (22:30)
--- NOTE | 2024-04-26 00:15 | FALL ---
Description of Fall: Pt rang to be assisted to be helped to the bathroom. Bed alarm intact at that time. Pt was assisted to stand with walker while RN stood behind him ready to walk to the bathroom. Pt started to fall toward his front right, away
from RN. RN attempted to catch pt, but as pt is large and heavy, pt hit wall with his Rt back and slid down to the floor onto his Rt buttock. Pt did not hit head. Pt was then assisted by 3 people up to chair. Pt complained of slight pain his Lt rib
area. DATA SECURITY ADMINISTRATOR notified. DATA SECURITY ADMINISTRATOR came up to see and assess pt.
Injuries Noted:
Slight redness noted on pt Rt back.
Action Taken:
DATA SECURITY ADMINISTRATOR notified. No new orders. Bed and chair alarm remain intact.
Name of Provider Notified: Valarie Elaine.
--- NOTE | 2024-04-26 00:45 | W.PN.UPDATE ---
Update Note
Progress Note Update
PT witnessed fall in bathroom.
Per RN, pt was ambulating with nurse to bathroom when pt leg became weaker and started sliding to floor. RN stated that his right side leaned against wall and she did her best to guide him down.PT had some lower back pain- but he does have chronic
back pain. Pt c/o of some tenderness to ant left rib area. Area not tender to touch. While pt in chair he stated pain isn't bad. ? pulled muscle from fall. Offered lidocaine patch. Pt currently declined. Consider xray of back if pain worsens. PT
does not feel it's any worse than his normal pains.
[2024-04-26] MEDS: MELATONIN 5 MG PO (00:50)
[2024-04-26 07:00] VITALS: BP 130/77
[2024-04-26 07:11] LABS: Hematocrit 34.1 % (39.0-52.0); Mean Corp Hgb Conc. 35.2 g/dL (33.0-37.0); Mean Corpuscular Hgb 32.8 pg (27.0-31.0); Mean Corpuscular Volume 93.2 fL (80.0-94.0); Mean Platelet Volume 12.6 fL (7.4-10.4); Platelet Count 250 10^3/uL (130-400); Red Blood Cell Count 3.66 10^6/uL (4.70-6.10); Red Cell Dist. Width 14.5 % (11.5-14.5); White Blood Cell Count 24.6 10^3/uL (4.8-10.8)
[2024-04-26] MEDS: NSS 1000 IV ×2 (07:31→15:52)
[2024-04-26 07:32] LABS: ALT (SGPT) 33 U/L (0-50); AST (SGOT) 49 U/L (17-59); Albumin 2.9 g/dl (3.5-5.0); Alkaline Phosphatase 245 U/L (38-126); Blood Urea Nitrogen 46 mg/dl (9-20); Calcium 9.2 mg/dl (8.4-10.2); Carbon Dioxide 17 mmol/L (22-30); Chloride 107 mmol/L (98-107); Estimated Creatinine Clearance 55 ml/min; Glucose 197 mg/dl (70-99); Potassium 4.5 mmol/L (3.5-5.1); Sodium 136 mmol/L (135-145); Total Bilirubin 1.3 mg/dl (0.2-1.3); Total Protein 5.7 g/dl (6.3-8.2); eGFR 57.65
[2024-04-26] MEDS: PROGRAF 1.5 MG PO ×2 (07:33→19:26)
[2024-04-26] MEDS: PLAVIX 75 MG PO (07:33)
[2024-04-26] MEDS: PROTONIX 40 MG PO (07:33)
[2024-04-26] MEDS: MAG-TAB SR 84 MG PO ×2 (07:34→19:26)
[2024-04-26] MEDS: ELIQUIS 5 MG PO ×2 (07:34→19:26)
[2024-04-26] MEDS: LYRICA 200 MG PO ×2 (07:34→19:26)
[2024-04-26] MEDS: LIPITOR 40 MG PO (07:34)
[2024-04-26] MEDS: OSCAL 500 + D 500 MG PO ×2 (07:34→19:27)
[2024-04-26] MEDS: THERAGRAN 1 TABLET PO (07:34)
[2024-04-26] MEDS: TOPROL XL 150 MG PO (07:40)
[2024-04-26] MEDS: SPIRIVA RESPIMAT 2.5 MCG 2 PUFF INH (08:00)
[2024-04-26] MEDS: ADVAIR HFA 45/21 MCG INHALER 2 PUFF INH ×2 (08:00→19:46)
[2024-04-26 08:43] LABS: % Basophils 0.2 % (0-2); % Eosinophils 0.1 % (0-6); % Immature Granulocytes 2.2 % (0-0.5); % Lymphocytes 3.7 % (20.5-51.1); % Monocytes 9.7 % (1.7-9.3); % Neutrophils 84.1 % (42.2-75.2); Absolute Basophils 0.1 10^3/uL (0-0.2); Absolute Immature Granulocytes 0.5 10^3/uL (0-0.05); Absolute Lymphocytes 0.9 10^3/uL (1.2-3.4); Absolute Monocytes 2.4 10^3/uL (0.1-0.6); Absolute Neutrophils 20.7 10^3/uL (1.4-6.5); Nucleated Red Blood Cells % 0 % (-)
--- NOTE | 2024-04-26 10:34 | CM ---
CM reviewed chart, reviewed with Nurse, patient seen bedside. Patient resides with his cousin in a private home, first floor set up, four steps to enter. Patient reports using a walking stick for ambulation if needed, denies VN or SNF history.
Patient confirms PCP Odilia Velázquez, pharmacy [facility], confirms prescription coverage, patient reports he is current with the [facility]. Patient provided with [facility]AR[facility] form, reviewed verbally, placed in patients chart. Patient may benefit from PT/OT
evaluations. CM will continue to follow for all discharge planning needs.
Plan; home with cousin, may benefit from PT/OT
--- NOTE | 2024-04-26 15:01 | W.PN.HOSP.TC ---
Today's Communication/Plan
-
CW clears
CW IV fluids
Follow CBC
Assessment / Plan
Assessment / Plan
#Acute diarrhea with nausea
- Likely viral enteritis/ileus
-CT abdomen pelvis shows probable enteritis/ileitis, cannot rule out developing small bowel obstruction questionable transition point
-Chest x-ray unremarkable
-Flu and COVID-negative
- blood cultures neg so far
- No further diarrhea but still with nausea. Passing gas today.
- Keep on clear today and cw IV fluids
- If remains symptomatic repeat abdo imaging and consider surgical input
- Collect stool specimen for studies if diarrhea returns
Leukocytosis - no fevers. Improving with supportive care . Possible sec to enteritis /ileus. Follow for now.
# Acute kidney injury
-Creatinine 1.7
- improved today to 1.3
-cw IV fluids
-Hold lisinopril
# Right-sided cervical radiculopathy and lumbar radiculopathy
-Patient has some pain in his lower back suggesting lumbar radiculopathy
-Strength is preserved
Paroxysmal atrial fibrillation
-Continue Eliquis
-Continue metoprolol
History of CAD
-Continue Plavix, statin
History of PVCs
Alcoholic cirrhosis
Hepatitis C status post liver transplant in 2006 and [facility]
-Continue tacrolimus
History of multiple bile duct stents
Abdominal aortic aneurysm status post repair at [facility]
Essential hypertension
Chronic neuropathy
-Continue pregabalin
COPD
DNR/DNI
DVT prophylaxis�heparin
Clear liquids
Anticipated Discharge: 24 - 48 hours
Subjective/Interval History
-
Date of Service: April 26, 2024
Feeling queasy and nauseous. No further diarrhea. Passing gas today.
Denies any shortness of breath. No chest pain.
No fever or chills.
Objective Data
-
Labs:
Laboratory Results
04/26/24
06:52
WBC 24.6 H
Hgb 12.0 L
Hct 34.1 L
Plt Count 250
Sodium 136
Potassium 4.5
Chloride 107
Carbon Dioxide 17 L
BUN 46 H
Creatinine 1.3
Glucose 197 H
Calcium 9.2
Total Bilirubin 1.3
AST 49
ALT 33
Alkaline Phosphatase 245 H
Vital Signs:
Vital Signs
Temp Pulse Resp BP Pulse Ox
98.9 F 90 16 130/77 95
04/26/24 07:00 04/26/24 08:06 04/26/24 08:06 04/26/24 07:40 04/26/24 08:06
I&O
04/25/24 04/26/24 04/27/24
06:59 06:59 07:59
Intake Total 1000 / 1000
Balance 1000 / 1000
Review of Systems
-
EENT: Denies Sore Throat
Respiratory: Denies Cough
Genitourinary: Denies Dysuria
Neuro: Reports Dizzy
Physical Exam
-
General: No Apparent Distress
HEENT: Moist Mucous Membranes
Respiratory: Clear to Auscultation
Cardiac: Regular Rhythm and S1/S2
GI: Soft and Nontender; Negative Normal Bowel Sounds (hypoactive)
Neuro: AO x 3
Psych: Calm; Negative Confused
Data Reviewed
-
Labs: Labs Reviewed by me
[2024-04-26 16:18] VITALS: BP 157/70
[2024-04-26] MEDS: ZOSYN 50 IV (21:26)
[2024-04-26 23:00] VITALS: BP 140/58
--- NOTE | 2024-04-26 23:49 | W.PN.UPDATE ---
Update Note
Progress Note Update
2 preliminary blood cultures with gram neg bacilli
pt admitted with enteritis. urine culture pending.
will start empiric zosyn until final cx
[2024-04-27] MEDS: ZOSYN 50 IV ×4 (03:18→21:46)
[2024-04-27] MEDS: DILAUDID 0.5 MG IV (03:24)
[2024-04-27] MEDS: OSCAL 500 + D 500 MG PO ×2 (07:03→20:57)
[2024-04-27] MEDS: LIPITOR 40 MG PO (07:03)
[2024-04-27] MEDS: PLAVIX 75 MG PO (07:03)
[2024-04-27] MEDS: ELIQUIS 5 MG PO ×2 (07:03→20:57)
[2024-04-27] MEDS: THERAGRAN 1 TABLET PO (07:03)
[2024-04-27] MEDS: MAG-TAB SR 84 MG PO ×2 (07:03→20:57)
[2024-04-27] MEDS: PROGRAF 1.5 MG PO ×2 (07:03→20:57)
[2024-04-27] MEDS: PROTONIX 40 MG PO (07:03)
[2024-04-27] MEDS: LYRICA 200 MG PO ×2 (07:03→20:56)
[2024-04-27] MEDS: TOPROL XL 150 MG PO (07:03)
[2024-04-27 07:35] LABS: Hematocrit 33.4 % (39.0-52.0); Hemoglobin 11.5 g/dL (13.0-18.0); Mean Corp Hgb Conc. 34.4 g/dL (33.0-37.0); Mean Corpuscular Hgb 32.4 pg (27.0-31.0); Mean Corpuscular Volume 94.1 fL (80.0-94.0); Mean Platelet Volume 12.1 fL (7.4-10.4); Platelet Count 232 10^3/uL (130-400); Red Blood Cell Count 3.55 10^6/uL (4.70-6.10); Red Cell Dist. Width 14.4 % (11.5-14.5); White Blood Cell Count 18.3 10^3/uL (4.8-10.8)
[2024-04-27 07:46] LABS: Blood Urea Nitrogen 31 mg/dl (9-20); Calcium 8.8 mg/dl (8.4-10.2); Carbon Dioxide 21 mmol/L (22-30); Chloride 106 mmol/L (98-107); Estimated Creatinine Clearance 65 ml/min; Glucose 212 mg/dl (70-99); Potassium 4.1 mmol/L (3.5-5.1); Sodium 134 mmol/L (135-145); eGFR > 60.00
[2024-04-27 07:47] VITALS: BP 151/76
[2024-04-27] MEDS: SPIRIVA RESPIMAT 2.5 MCG 2 PUFF INH (08:35)
[2024-04-27] MEDS: ADVAIR HFA 45/21 MCG INHALER 2 PUFF INH ×2 (08:35→20:03)
[2024-04-27] MEDS: ROXICODONE 5 MG PO (11:13)
[2024-04-27] MEDS: NSS 1000 IV (12:39)
--- NOTE | 2024-04-27 13:06 | W.PN.HOSP.TC ---
Today's Communication/Plan
-
Cautiously advance diet to full liquid diet
DC IV fluids
Continue with Zosyn and follow blood culture data.
PT eval
Assessment / Plan
Assessment / Plan
#Acute diarrhea with nausea
-CT abdomen pelvis shows probable enteritis/ileitis, cannot rule out developing small bowel obstruction questionable transition point
-Chest x-ray unremarkable
-Flu and COVID-negative
- No further diarrhea and passing gas. Tolerating clear liquid diet . Started bowel obstruction
-Cautiously advance diet to full liquid diet. Patient advised to not to push with the full liquid diet if he becomes nauseous.
- Collect stool specimen for studies if diarrhea returns
Leukocytosis - no fevers. Improving with supportive care . Possible sec to infection. Follow for now.
Gram-negative bacteremia-admitting blood cultures back positive last night. Started on Zosyn. Follow for edification and repeat in a.m.
# Acute kidney injury
-Creatinine 1.7
- improved today to 1.1
-Hold further IV fluids
-Hold lisinopril
# Right-sided cervical radiculopathy and lumbar radiculopathy
-Patient has some pain in his lower back suggesting lumbar radiculopathy
-Strength is preserved
Paroxysmal atrial fibrillation
-Continue Eliquis
-Continue metoprolol
History of CAD
-Continue Plavix, statin
History of PVCs
Alcoholic cirrhosis
Hepatitis C status post liver transplant in 2006 and [facility]
-Continue tacrolimus
History of multiple bile duct stents
Abdominal aortic aneurysm status post repair at [facility]
Essential hypertension
Chronic neuropathy
-Continue pregabalin
COPD
DNR/DNI
DVT prophylaxis�heparin
Clear liquids
Anticipated Discharge: > 48 hours
Subjective/Interval History
-
Date of Service: April 27, 2024
Tolerating liquid diet. Still has 4 out of 10 abdominal discomfort. Passing gas but no bowel movement or diarrhea.
Would like to try more solid diet. Want to have some soup or broth.
No fever chills.
Denies shortness of breath.
Objective Data
-
Labs:
Laboratory Results
04/27/24
06:52
WBC 18.3 H
Hgb 11.5 L
Hct 33.4 L
Plt Count 232
Sodium 134 L
Potassium 4.1
Chloride 106
Carbon Dioxide 21 L
BUN 31 H
Creatinine 1.1
Glucose 212 H
Calcium 8.8
Vital Signs:
Vital Signs
Temp Pulse Resp BP Pulse Ox
98.4 F 72 13 151/76 95
04/27/24 07:47 04/27/24 08:44 04/27/24 08:44 04/27/24 07:47 04/27/24 08:44
I&O
04/26/24 04/27/24 04/28/24
05:59 06:59 06:59
Intake Total 940 / 940
Output Total 1100 / 1100
Balance -160 / -160
Review of Systems
-
Constitutional: Denies Fever or Chills
Respiratory: Denies Cough
Cardiac: Denies Chest Pain
Neuro: Denies Dizzy
Physical Exam
-
General: No Apparent Distress
Respiratory: Clear to Auscultation and Non Labored Respirations; Negative Accessory Resp Muscle Use
Cardiac: Regular Rhythm and S1/S2
GI: Soft and Normal Bowel Sounds; Negative Tender (some discomfort in general but no rebound tenderness or guarding; was in sitting position - big belly ;pt doesnt feel bloated in his belly)
Neuro: AO x 3
Psych: Calm
Data Reviewed
-
Labs: Labs Reviewed by me
[2024-04-27 15:29] VITALS: BP 135/64; PULSE 86; O2SAT 90
[2024-04-27 15:38] VITALS: BP 135/64
[2024-04-27 23:06] VITALS: BP 107/60
[2024-04-28] MEDS: ROXICODONE 5 MG PO (00:26)
[2024-04-28] MEDS: ZOSYN 50 IV ×2 (04:01→09:29)
[2024-04-28] MEDS: TOPROL XL 150 MG PO (07:35)
[2024-04-28] MEDS: PLAVIX 75 MG PO (07:35)
[2024-04-28] MEDS: LIPITOR 40 MG PO (07:35)
[2024-04-28] MEDS: ELIQUIS 5 MG PO ×2 (07:35→19:23)
[2024-04-28] MEDS: PROGRAF 1.5 MG PO ×2 (07:35→19:22)
[2024-04-28] MEDS: THERAGRAN 1 TABLET PO (07:37)
[2024-04-28] MEDS: PROTONIX 40 MG PO (07:37)
[2024-04-28] MEDS: MAG-TAB SR 84 MG PO ×2 (07:37→19:23)
[2024-04-28] MEDS: OSCAL 500 + D 500 MG PO ×2 (07:37→19:23)
[2024-04-28] MEDS: LYRICA 200 MG PO ×2 (07:41→19:23)
[2024-04-28 07:55] VITALS: BP 119/63
[2024-04-28] MEDS: ADVAIR HFA 45/21 MCG INHALER 2 PUFF INH ×2 (08:05→19:54)
[2024-04-28] MEDS: SPIRIVA RESPIMAT 2.5 MCG 2 PUFF INH (08:05)
[2024-04-28 08:22] LABS: Hematocrit 34.9 % (39.0-52.0); Mean Corp Hgb Conc. 34.4 g/dL (33.0-37.0); Mean Corpuscular Hgb 32.6 pg (27.0-31.0); Mean Corpuscular Volume 94.8 fL (80.0-94.0); Mean Platelet Volume 12.2 fL (7.4-10.4); Platelet Count 246 10^3/uL (130-400); Red Blood Cell Count 3.68 10^6/uL (4.70-6.10); Red Cell Dist. Width 14.2 % (11.5-14.5); White Blood Cell Count 16.6 10^3/uL (4.8-10.8)
[2024-04-28 09:15] LABS: Blood Urea Nitrogen 23 mg/dl (9-20); Calcium 8.5 mg/dl (8.4-10.2); Carbon Dioxide 21 mmol/L (22-30); Chloride 104 mmol/L (98-107); Estimated Creatinine Clearance 71 ml/min; Glucose 240 mg/dl (70-99); Potassium 4.3 mmol/L (3.5-5.1); Sodium 133 mmol/L (135-145); eGFR > 60.00
[2024-04-28 15:10] VITALS: BP 118/60
[2024-04-28] MEDS: ZOSYN 100 IV ×2 (15:18→22:15)
--- NOTE | 2024-04-28 16:30 | W.PN.HOSP.TC ---
Addendum entered and electronically signed by Aron Wilson MD 04/28/24 22:48:
Attending Addendum-
I saw and evaluated the patient. I reviewed the resident�s note and agree with findings and plan as documented in the resident�s note. Sub: Denies BM put passing flatus. Mild nausea and abd pain. No fevers chills. Full 12 point ROS reviewed and
negative except as documented Exam: Vitals reviewed in chart GEN-NAD heart RRR lungs clear abd mild distention pos BS no rebound guarding mild TTP epigastric. LE no edema
Plan:
#Enteritis/Ileitis
-pos blood cx x 2 - pseudomonas sensi pend
-urine cx- NGTD
-cont zosyn #3
-check obs series
-No further diarrhea and passing gas. Tolerating clear liquid diet
-Cautiously advance diet if obs series neg for obstruction
-repeat blood cx
# Acute kidney injury
-resolved
-Hold further IV fluids
-Hold lisinopril
# Right-sided cervical radiculopathy and lumbar radiculopathy
-Patient has some pain in his lower back suggesting lumbar radiculopathy
-Strength is preserved
#Paroxysmal atrial fibrillation
-Continue Eliquis
-Continue metoprolol
#History of CAD
-Continue Plavix, statin
#History of PVCs
#Alcoholic cirrhosis
#Hepatitis C status post liver transplant in 2006 and [facility]
-Continue tacrolimus
#History of multiple bile duct stents
#Abdominal aortic aneurysm status post repair at [facility]
#Essential hypertension
-cont metoprolol
- hold lisiniopril
#Chronic neuropathy
-Continue pregabalin
#COPD
DNR/DNI
DVT prophylaxis�heparin
Dispo eventual DC home with HC
Time spent coordinating care, review of plan of care with resident, personally reviewed records in EMR, med rec, consults, notes, labs, radiology, d/w nursing � 53 mins
Original Note:
Today's Communication/Plan
-
-Obstructive abdominal x-ray series was ordered
-Full liquid diet for now /can plan to advanced tomorrow regarding x-ray findings and symptoms
-Follow-up CBC CMP
-Blood culture ordered, follow-up
-Continue Zosyn for now
Assessment / Plan
Assessment / Plan
On today's exam, the patient denied having diarrhea since admission. Reports his last bowel movement was on , but he is still passing gases thank you.
Problem list
Abdominal pain with nausea/no further diarrhea
Leukocytosis
CHARISSE
Chronic pain to cervical/lumbar radiculopathy
Paroxysmal atrial fibrillation
History of CAD
History of PVCs
Hx of Alcoholic cirrhosis
Hepatitis C s/p liver transplant in 2006 and [facility]
History of multiple bile duct stents
Abdominal aortic aneurysm s/p repair at [facility]
Hyperlipidemia
Essential hypertension
COPD
# Diarrhea with nausea
-CT abdomen/pelvis showed possible enteritis/ileitis-not able to rule out developing small bowel obstruction at admission
-Currently no diarrhea/passing gas/tolerating liquid diet
-Chest x-ray unremarkable
-Flu and COVID-negative
-Patient reports ongoing abdominal pain/denies diarrhea since admission
-Abdominal obstruction x-ray was ordered
#Leukocytosis
-WBC trending down 16.6 this morning
-No fever spikes, hemodynamically stable
-Blood culture 04/25: Resulted positive for Pseudomonas aeruginosa
-Lactic acid normal at admission 1.3
-On Zosyn-continue
-Repeat blood culture was [id number]
# Acute kidney injury
-Improving since admission
-Creatinine trended up to 1.0
-Discontinue IV fluids
-Hold lisinopril
# Chronic pain to cervical/lumbar radiculopathy with neuropathy
-Likely stable
-Oxycodone 5 mg Q4HPRN
-Continue pregabalin
#Paroxysmal atrial fibrillation
-Continue Eliquis
-Continue metoprolol
#History of CAD
-Continue Plavix, statin
#History of PVCs
Hx of Alcoholic cirrhosis
-
#Hepatitis C status post liver transplant in 2006 and [facility]
-Continue tacrolimus
#History of multiple bile duct stents
-No vicente-colored stools
-No right upper abdominal pain
-No findings with hepatobiliary system on CT at admission
#Abdominal aortic aneurysm status post repair at [facility]
-Continue follow-up BP
#Hyperlipidemia
-Continue atorvastatin
# Essential hypertension
-Hold amlodipine 2.5 mg due blood pressure on lower side
-Starting furosemide 40 mg can be considered with kidney function improvement with BP follow
#COPD
-Continue albuterol as needed
DNR/DNI
DVT prophylaxis�on Eliquis
Clear liquids
Anticipated Discharge: 24 - 48 hours
Subjective/Interval History
-
Date of Service: April 28, 2024
Patient reports some nausea and lower abdominal discomfort. Denies any bowel movement since , but reports flatulence
Objective Data
-
Labs:
Laboratory Results
04/28/24
08:02
WBC 16.6 H
Hgb 12.0 L
Hct 34.9 L
Plt Count 246
Sodium 133 L
Potassium 4.3
Chloride 104
Carbon Dioxide 21 L
BUN 23 H
Creatinine 1.0
Glucose 240 H
Calcium 8.5
Vital Signs:
Vital Signs
Temp Pulse Resp BP Pulse Ox
99.4 F 94 20 118/60 98
04/28/24 15:10 04/28/24 15:10 04/28/24 15:10 04/28/24 15:10 04/28/24 15:10
I&O
04/27/24 04/28/24 04/29/24
06:59 06:59 06:59
Intake Total 1290 / 1290
Output Total 2024
Balance -735 / -735
Review of Systems
-
History Source: Patient
EENT: Reports No Symptoms Reported
Respiratory: Reports No Symptoms
Cardiac: Reports No Symptoms
Abdomen/GI: Reports Abdominal Pain and Nausea
Genitourinary: Reports No Symptoms
Musculoskeletal: Reports No Symptoms
Skin: Reports No Symptoms
Neuro: Reports No Symptoms
Physical Exam
-
General: Well Developed, Well Nourished, No Apparent Distress and Comfortable
HEENT: Normocephalic, Atraumatic and Moist Mucous Membranes
Respiratory: Clear to Auscultation
Cardiac: S1/S2 and Irregular Rhythm
GI: Soft, Nondistended and Tender (Mild abdominal discomfort to palpation)
Musculoskeletal: No Clubbing, No Cyanosis and No Edema
Skin: Warm and Dry
Neuro: Awake, Alert, Oriented, AO x 3 and Nonfocal/Grossly Intact
Psych: Calm
[2024-04-28 23:07] VITALS: BP 147/94
[2024-04-29] MEDS: TYLENOL 650 MG PO ×2 (04:01→19:58)
[2024-04-29] MEDS: ZOSYN 100 IV ×4 (04:01→21:16)
[2024-04-29 07:33] VITALS: BP 119/79
[2024-04-29] MEDS: SPIRIVA RESPIMAT 2.5 MCG 2 PUFF INH (08:04)
[2024-04-29] MEDS: ADVAIR HFA 45/21 MCG INHALER 2 PUFF INH ×2 (08:04→19:06)
[2024-04-29 08:05] LABS: Hematocrit 32.2 % (39.0-52.0); Hemoglobin 11.1 g/dL (13.0-18.0); Mean Corp Hgb Conc. 34.5 g/dL (33.0-37.0); Mean Corpuscular Volume 92.8 fL (80.0-94.0); Mean Platelet Volume 12.4 fL (7.4-10.4); Platelet Count 251 10^3/uL (130-400); Red Blood Cell Count 3.47 10^6/uL (4.70-6.10); White Blood Cell Count 15.9 10^3/uL (4.8-10.8)
[2024-04-29] MEDS: LIPITOR 40 MG PO (08:20)
[2024-04-29] MEDS: ELIQUIS 5 MG PO ×2 (08:20→19:55)
[2024-04-29] MEDS: LYRICA 200 MG PO ×2 (08:20→19:55)
[2024-04-29] MEDS: PLAVIX 75 MG PO (08:21)
[2024-04-29] MEDS: OSCAL 500 + D 500 MG PO ×2 (08:21→19:55)
[2024-04-29] MEDS: MAG-TAB SR 84 MG PO ×2 (08:21→19:55)
[2024-04-29] MEDS: PROTONIX 40 MG PO (08:22)
[2024-04-29] MEDS: THERAGRAN 1 TABLET PO (08:22)
[2024-04-29] MEDS: TOPROL XL 150 MG PO (08:22)
[2024-04-29] MEDS: PROGRAF 1.5 MG PO ×2 (08:22→19:55)
[2024-04-29 08:38] LABS: ALT (SGPT) 35 U/L (0-50); AST (SGOT) 36 U/L (17-59); Albumin 2.2 g/dl (3.5-5.0); Alkaline Phosphatase 281 U/L (38-126); Blood Urea Nitrogen 20 mg/dl (9-20); Calcium 8.4 mg/dl (8.4-10.2); Carbon Dioxide 20 mmol/L (22-30); Chloride 104 mmol/L (98-107); Estimated Creatinine Clearance 71 ml/min; Glucose 234 mg/dl (70-99); Lipase 37 U/L (23-300); Potassium 4.3 mmol/L (3.5-5.1); Total Bilirubin 2.1 mg/dl (0.2-1.3); Total Protein 4.9 g/dl (6.3-8.2); eGFR > 60.00
[2024-04-29 08:48] LABS: Sodium 132 mmol/L (135-145)
[2024-04-29 10:30] VITALS: BP 129/68; PULSE 77; O2SAT 97
[2024-04-29 10:40] LABS: % Basophils 0.7 % (0-2); % Eosinophils 0.6 % (0-6); % Immature Granulocytes 10.1 % (0-0.5); % Lymphocytes 7.5 % (20.5-51.1); % Monocytes 9.8 % (1.7-9.3); % Neutrophils 71.3 % (42.2-75.2); Absolute Basophils 0.1 10^3/uL (0-0.2); Absolute Eosinophils 0.1 10^3/uL (0-0.7); Absolute Immature Granulocytes 1.6 10^3/uL (0-0.05); Absolute Lymphocytes 1.2 10^3/uL (1.2-3.4); Absolute Monocytes 1.6 10^3/uL (0.1-0.6); Absolute Neutrophils 11.4 10^3/uL (1.4-6.5); Nucleated Red Blood Cells % 0 % (-)
[2024-04-29 10:51] LABS: Glycohemoglobin (HgbA1c) 7.5 % (4.0-5.6)
--- NOTE | 2024-04-29 12:13 | CM ---
prospect manager reviewed patient's chart and kathi was switched to inpatient, IMM provided and singed by patient and placed on chart, per patient he plans on returning to home when stable, patient's cousin lives with him, patient is agreeable to
visiting nurses, options were reviewed and patient has selected [facility], [facility] liaison contacted.
Plan; Home with cousin and [facility].
--- NOTE | 2024-04-29 12:43 | VNURNOTE ---
Home Health Liaison met with patient at bedside to discuss [facility] nurse/therapy, visits, schedule and homebound status. Patient is agreeable and understands that visits at home will be 2-3 x per week to assess and teach medical management. He is
familiar with [facility] and is aware that [facility] will contact them for start of care in 1-2 days after discharge from . [facility] referral completed in [facility].
--- NOTE | 2024-04-29 13:28 | W.PN.HOSP.TC ---
Addendum entered and electronically signed by Aron Wilson MD 04/29/24 22:55:
Attending Addendum-
I saw and evaluated the patient. I reviewed the resident�s note and agree with findings and plan as documented in the resident�s note. Sub: Denies BM since last but passing flatus. Mild nausea and abd pain no vom.. No diarrhea. 'I just
wanna eat regular food and have a BM!' No fevers chills.Deneis urinary complaints Full 12 point ROS reviewed and negative except as documented Exam: Vitals reviewed in chart GEN-NAD heart RRR lungs clear abd mild distention pos BS no rebound
guarding mild TTP epigastric. LE no edema
Plan:
#Sepsis secondary to probable Enteritis/Ileitis
-pos blood cx x 2 - pseudomonas sensi resulted
-leukocytosis and tachy
-wbc trending down slightly
-urine cx- NGTD
-cont zosyn #4
-check obs series-neg for obs
-No further diarrhea and passing gas. Tolerating clear liquid diet
-Cautiously advance diet if obs series neg for obstruction
-repeat blood cx -P
-likely intra abd source hopefully stent not infected t/c MRCP/ERCP vs CTA A/P if repeat blood cx pos
# Constipation
- start miralax, enema, and suppository
- monitor for BM closely
# DM
- new dx HBa1c 7.5
- start SSI
- start metformin on DC
# Hyponatremia
- hypovolemic
- start IVF
- repeat BMP in am
# Acute kidney injury
-resolved
-Hold lisinopril
# Right-sided cervical radiculopathy and lumbar radiculopathy
-Patient has some pain in his lower back suggesting lumbar radiculopathy
-Strength is preserved
#Paroxysmal atrial fibrillation
-Continue Eliquis
-Continue metoprolol
#History of CAD
-Continue Plavix, statin
#History of PVCs
#Alcoholic cirrhosis
#Hepatitis C status post liver transplant in 2006 at [facility]
-Continue tacrolimus
#History of multiple bile duct stents-monitor closely
#Abdominal aortic aneurysm status post repair at [facility]
#Essential hypertension
-cont metoprolol
- hold lisiniopril
#Chronic neuropathy
-Continue pregabalin
#COPD
DNR/DNI
DVT prophylaxis�heparin
Dispo eventual DC home with HC
Time spent coordinating care, review of plan of care with resident, personally reviewed records in EMR, med rec, consults, notes, labs, radiology, d/w nursing � 55 mins
Original Note:
Today's Communication/Plan
-
-Rectal enema was ordered
-Diet was advanced
-Follow blood culture
-Follow CBC,LFTs, Cr, TB
Assessment / Plan
Assessment / Plan
On today's exam, the patient denied abdominal pain and reports only abdominal discomfort. Reports his last bowel movement was on , but reports flatulence. His obstructive X ray series from 04/28/24 noted Nonobstructive bowel gas pattern and
Mild colonic stool burden.
Problem list
Abdominal pain with nausea/no further diarrhea
Leukocytosis
CHARISSE
Chronic pain to cervical/lumbar radiculopathy
Paroxysmal atrial fibrillation
History of CAD
History of PVCs
Hx of Alcoholic cirrhosis
Hepatitis C s/p liver transplant in 2006 and [facility]
History of multiple bile duct stents
Abdominal aortic aneurysm s/p repair at [facility]
Hyperlipidemia
Essential hypertension
COPD
# Diarrhea with nausea
-Diarrhea and nausea resolved
-CT abdomen/pelvis showed possible enteritis/ileitis-not able to rule out developing small bowel obstruction at admission
-Currently no diarrhea/passing gas/tolerating liquid diet
-Chest x-ray unremarkable
-Flu and COVID-negative
-Patient reports abdominal discomfort this am
-Abdominal obstruction x-ray 04/28/24 : Nonobstructive bowel gas pattern and Mild colonic stool burden.
-Rectal supp ordered
-His diet is planning to be advanced
#Leukocytosis
-WBC trending down
-No fever spikes, hemodynamically stable
-Blood culture 04/25: Resulted positive for Pseudomonas aeruginosa
-Lactic acid normal at admission 1.3
-On Zosyn-continue
-Repeat blood culture pending
# Acute kidney injury
-Improving since admission
-Creatinine trended down to 1.0
-Discontinue IV fluids
-Hold lisinopril
# Chronic pain to cervical/lumbar radiculopathy with neuropathy
-Likely stable
-Oxycodone 5 mg Q4HPRN
-Continue pregabalin
#Paroxysmal atrial fibrillation
-Continue Eliquis
-Continue metoprolol
#History of CAD
-Continue Plavix, statin
#History of PVCs
Hx of Alcoholic cirrhosis
-
#Hepatitis C status post liver transplant in 2006 and [facility]
-Continue tacrolimus
#History of multiple bile duct stents
-No vicente-colored stools
-No right upper abdominal pain
-No findings with hepatobiliary system on CT at admission
-TB 2.1 elevated this am to 2.1 -follow up
#Abdominal aortic aneurysm status post repair at [facility]
-Continue follow-up BP
#Hyperlipidemia
-Continue atorvastatin
# Essential hypertension
-Hold amlodipine 2.5 mg due blood pressure on lower side
-Starting furosemide 40 mg can be considered with kidney function improvement with BP follow
#COPD
-Continue albuterol as needed
DNR/DNI
DVT prophylaxis�on Eliquis
Clear liquids
Anticipated Discharge: 24 - 48 hours
Subjective/Interval History
-
Date of Service: April 29, 2024
Patient reports improvement with his abdominal pain and only notes feeling some abdominal discomfort. No bowel movement since admission but still has flatulence.
Objective Data
-
Labs:
Laboratory Results
04/29/24
06:51
WBC 15.9 H
Hgb 11.1 L
Hct 32.2 L
Plt Count 251
Sodium 132 L
Potassium 4.3
Chloride 104
Carbon Dioxide 20 L
BUN 20
Creatinine 1.0
Glucose 234 H
Calcium 8.4
Total Bilirubin 2.1 H D
AST 36
ALT 35
Alkaline Phosphatase 281 H
Vital Signs:
Vital Signs
Temp Pulse Resp BP Pulse Ox
98.3 F 72 18 119/79 95
04/29/24 07:33 04/29/24 08:10 04/29/24 08:10 04/29/24 07:33 04/29/24 08:10
I&O
04/28/24 04/29/24 04/30/24
06:59 06:59 06:59
Intake Total 1290 / 1290 1400 / 1400
Output Total 2024 192 / 1924
Balance -735 / -735 -525 / -525
Review of Systems
-
History Source: Patient
All other systems: Reviewed and negative
Constitutional: Reports No Symptoms
EENT: Reports No Symptoms Reported
Respiratory: Reports No Symptoms
Cardiac: Reports No Symptoms
Abdomen/GI: Reports Other (abdominal discomfort )
Genitourinary: Reports No Symptoms
Musculoskeletal: Reports No Symptoms
Skin: Reports No Symptoms
Neuro: Reports No Symptoms
Endocrine: Reports No Symptoms
Physical Exam
-
General: Well Developed, Well Nourished and No Apparent Distress
HEENT: Normocephalic, Atraumatic and Moist Mucous Membranes
Respiratory: Clear to Auscultation
Cardiac: Regular Rhythm and S1/S2
GI: Soft, Nontender, Nondistended and Normal Bowel Sounds
Musculoskeletal: No Clubbing, No Cyanosis and No Edema
Skin: Warm
Neuro: Awake, Alert, Oriented and Nonfocal/Grossly Intact
[2024-04-29] MEDS: DULCOLAX 10 MG RECTAL (13:40)
[2024-04-29 15:29] LABS: Glucose - Point of Care 374 mg/dl (70-99)
[2024-04-29] MEDS: MIRALAX 17 GRAMS PO (16:01)
[2024-04-29] MEDS: NOVOLOG FLEXPEN-LOW RESISTANCE 5 UNITS SC (16:02)
[2024-04-29 16:13] VITALS: BP 134/76
--- NOTE | 2024-04-29 16:37 | CON.ID ---
Consultation
-
Date/Time Consultation Requested: April 29, 2024 1426
Date/Time Consultation Performed: April 29, 2024 1640
Requesting Provider: Dr. Shannon Cummings
Performing Provider: Dr. Olivia Hartley
Reason for Consultation: Pseudomonas bacteremia
Chief Complaint / Past History
Chief Complaint
Fever and diarrhea
History of Present Illness
73-year-old male history of liver transplant on tacrolimus, history of abdominal aortic aneurysm repair with aorto by iliac stent graft, CAD who presented to the hospital on April 27 complaining of abdominal discomfort and diarrhea. Patient reports
4 days of subjective fever, nausea, malaise, poor appetite. He had 1 episode of explosive diarrhea at home. No diarrhea since hospitalization. Initial white count was 32.8. CT of the abdomen pelvis showed enteritis/ileus. He was in CHARISSE.
COVID-negative. Influenza negative. Urine culture negative. Chest x-ray no opacities. Admission blood cultures positive for Pseudomonas. He is currently on Zosyn since April 26. Patient is passing gas. He still does not have bowel movement.
Has mid abdominal pain today. He was able to tolerate lunch today. No ill contacts. No recent travel.
Past History
Additional Past Medical History:
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
Paroxysmal atrial fibrillation
CAD
Hypertension
Neuropathy
COPD
AAA s/p aortobi-iliac stent graft
Cholecystectomy
Back surgery
History of multiple bile duct stents
Allergy History:
No Known Allergies Allergy (Verified 04/25/24 08:53)
Medications Reviewed: Yes
Current Antibiotics:
Zosyn d4
Social History
Tobacco: Former Smoker
Alcohol: Occasional
Drug: None
Family History
Family History: Not Pertinent
Review of Systems
Review of Systems
General: Fever, Chills and Change in Appetite
HEENT: Negative Sinus Problems, Headache or Pharyngitis
Cardiovascular: Negative Chest Pain
Respiratory: Negative Dyspnea or Cough
Gasteroenterology: Nausea
Genital / Urological: Negative Dysuria or Flank Pain
Endocrine: Weakness
All systems: All other systems were reviewed and were negative
Vital Signs
Temp Pulse Resp BP Pulse Ox
98.4 F 74 20 134/76 98
04/29/24 16:13 04/29/24 16:13 04/29/24 16:13 04/29/24 16:13 04/29/24 16:13
Physical Exam
Physical Exam
Constitutional: Acutely Ill
Eyes: No Conjunctival Hemorrhage and Sclera Anicteric
Cardiovascular: Regular Rate and S1/S2
Pulmonary: Clear
Gastrointestinal: Soft, Tender (mild mid abd ternderness), Distended (mild) and Decreased Bowel Sounds
Genito-Urinary: Negative CVA Tenderness
Extremities: Edema
Neurological: AO x 3
Lab / Diagnostic Study Results
04/29/24 06:51
04/29/24 06:51
Abs Immat Gran (auto) 1.6 10^3/uL (0-0.05) H 04/29/24 06:51
Absolute Neuts (auto) 11.4 10^3/uL (1.4-6.5) H 04/29/24 06:51
Absolute Lymphs (auto) 1.2 10^3/uL (1.2-3.4) 04/29/24 06:51
Absolute Monos (auto) 1.6 10^3/uL (0.1-0.6) H 04/29/24 06:51
Absolute Basos (auto) 0.1 10^3/uL (0-0.2) 04/29/24 06:51
Immature Gran % 10.1 % (0-0.5) H 04/29/24 06:51
Neutrophils % 71.3 % (42.2-75.2) 04/29/24 06:51
Lymphocytes % 7.5 % (20.5-51.1) L 04/29/24 06:51
Monocytes % 9.8 % (1.7-9.3) H 04/29/24 06:51
Eosinophils % 0.6 % (0-6) 04/29/24 06:51
Basophils % 0.7 % (0-2) 04/29/24 06:51
Lactic Acid 1.3 mmol/L (0.7-2.0) 04/25/24 15:59
Ur Squamous Epith Cells 0-2 /LPF (Few) 04/25/24 17:36
Microbiology Results
Micro:
04/28/24 13:34 Blood Culture - Preliminary
Blood/Venous No Growth in 24 hours- Final report to follow
04/25/24 15:59 Blood Culture - Preliminary
Blood/Venous Pseudomonas aeruginosa
Gram Stain - Preliminary
04/25/24 15:59 Blood Culture - Preliminary
Blood/Venous Pseudomonas aeruginosa
Gram Stain - Preliminary
04/29/24 06:51 Blood Culture - Pending
Blood/Venous
04/25/24 17:36 Urine Culture - Final
Urine NO GROWTH
04/26/24 00:04 MRSA Screen - Final
Nose No Methicillin Resistant Staphylococcus aureus isolated.
04/25/24 08:58 Influenza Types A & B (NITIN) - Final
Nasal Swab Negative for Influenza A & B, NAAT
Negative results must be combined with clinical observations
and patient history.
Nucleic Acid Amplification test (NAAT)performed on the
[employer] platform.
04/28/24 CT a/p: Probable enteritis/ileus. Cannot rule out developing small bowel obstruction with questionable transition points as described.
04/28/24 Chest/abd xray: Nonobstructive bowel gas pattern. Mild colonic stool burden.
Assessment / Plan
#Pseudomonas bacteremia x 2 sets, probably GI source gut translocation
# Enteritis/ileus/abdominal discomfort
# Leukocytosis - trending down
# hx AAA s/p aortobi-iliac stent graft
# s/p liver transplant on tacrolimus
- Follow repeat blood cx's
- If abdominal pain persists, consider CT angiogram abdomen/pelvis to evaluate for stent graft infection
- Continue Zosyn for now.
- Trend wbc
# Conditions [employer]ER
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
Paroxysmal atrial fibrillation
CAD
Hypertension
Neuropathy
COPD
AAA s/p aortobi-iliac stent graft
Cholecystectomy
Back surgery
History of multiple bile duct stents
[2024-04-29] MEDS: ROXICODONE 5 MG PO (19:58)
[2024-04-29] MEDS: FLUSH (NSS) 4 FLUSH IV (21:16)
[2024-04-29 21:39] LABS: Glucose - Point of Care 294 mg/dl (70-99)
[2024-04-29] MEDS: NSS 1000 IV (23:04)
[2024-04-29 23:28] VITALS: BP 155/76
[2024-04-30] MEDS: ZOSYN 100 IV ×4 (03:00→22:22)
[2024-04-30] MEDS: ROXICODONE 5 MG PO ×2 (04:55→20:43)
--- NOTE | 2024-04-30 06:33 | W.PN.HOSP.TC ---
Addendum entered and electronically signed by Aron Wilson MD 04/30/24 23:26:
Attending Addendum-
I saw and evaluated the patient. I reviewed the resident�s note and agree with findings and plan as documented in the resident�s note. Sub: Complains of not moving bowels. Deneis N/V had mild abd pain. Denies fevers chills. No diarrhea. Deneis
urinary complaints Full 12 point ROS reviewed and negative except as documented Exam: Vitals reviewed in chart GEN-NAD heart RRR lungs clear abd distention pos BS no rebound guarding mild TTP epigastric. LE no edema
Plan:
#Sepsis secondary to probable Enteritis/Ileitis vs stent infection
-persistent pos blood cx now x 3- 37 x 2 and now 04/28 x1 - pseudomonas
-leukocytosis increased
-urine cx- NGTD
-cont zosyn #5
-make NPO
-repeat blood cx - 04/28 x 1 NGTD
-likely intra abd source hopefully stent not infected
-check CTA A/P
-check ECHO
# Constipation
- aggressive bowel regimen
- monitor for BM closely
# DM
- new dx HBa1c 7.5
- start SSI
- start metformin on DC
# Hyponatremia
- hypovolemic
- cont IVF
- repeat BMP in am
# Acute kidney injury
-resolved
-Hold lisinopril
# Right-sided cervical radiculopathy and lumbar radiculopathy
-Patient has some pain in his lower back suggesting lumbar radiculopathy
-Strength is preserved
#Paroxysmal atrial fibrillation
-Continue Eliquis
-Continue metoprolol
#History of CAD
-Continue Plavix, statin
#History of PVCs
#Alcoholic cirrhosis
#Hepatitis C status post liver transplant in 2006 at [facility]
-Continue tacrolimus
#History of multiple bile duct stents-monitor closely per patient stents removed - onc Dr. Tristian Short
#Abdominal aortic aneurysm status post repair and stent at [facility]- check CTA r/o stent infection
#Essential hypertension
-cont metoprolol
-hold lisinopril
#Chronic neuropathy
-Continue pregabalin
#COPD
DNR/DNI
DVT prophylaxis�heparin
Dispo eventual DC home with HC
Time spent coordinating care, review of plan of care with resident, personally reviewed records in EMR, med rec, consults, notes, labs, radiology, d/w nursing ID rads � 54 mins
Original Note:
Today's Communication/Plan
-
-Plan for CT angio abdomen/pelvis
-ECHO ordered
-Follow blood culture-prelim was positive for negative bacillus/follow final result
-Follow CBC,LFTs, Cr, TB
Assessment / Plan
Assessment / Plan
On 04/30/24, the patient denied abdominal pain and but reported some abdominal discomfort. Patient stated his last bowel movement was on , but reports having flatulence . His obstructive X ray series from 04/28/24 noted Nonobstructive
bowel gas pattern and Mild colonic stool burden. He did not have any bowel movements, despite he was given rectal suppository on 04/30/11 and oral laxative. He was given another dose of oral laxative this am. On physical exam, the patient
feeling some discomfort on RUQ on lower abdominal area.
On 04/29/24, the patient was seen by ID physician recommending CT angiogram abdomen/pelvis to evaluate for a possible stent graft infection with ongoing abdominal pain/ discomfort and unknown source of persistent bacteramia
Problem list
Sepsis secondary to probable Enteritis/Ileitis
Leukocytosis
CHARISSE
Hypertansion
Chronic pain to cervical/lumbar radiculopathy
Paroxysmal atrial fibrillation
History of CAD
History of PVCs
Hx of Alcoholic cirrhosis
Hepatitis C s/p liver transplant in 2006 and [facility] with with ongoing
History of multiple bile duct stents
Abdominal aortic aneurysm s/p repair at [facility]
Hyperlipidemia
Essential hypertension
COPD
#Sepsis possibly secondary to Enteritis/Ileitis
-Continue Zosyn /pos blood cx x 2 - pseudomonas-sensitive to Zosyn
-ID on board-recommending CT angio pelvis/abdomen for possible of graft infection given history of AAA repair with aortobi- iliac stent graft
-Second blood culture prelim gram-negative bacillus// final result pending
-Leukocytosis
-Urine culture- NGTD
-Abdominal x-ray -obstructive series-Negative for bowel obstruction
-No further diarrhea and passing gas. Tolerating diabetic diet
-Hx of bile duct stent placement-all bile duct stents removed in the past by Dr Short at [facility], per patient`s report
# Constipation
-Abdominal l-xsr-nozadfrtrxf series 04/28: Mild stool burden without obstruction findings
-Rectal rectal suppository was given on 04/29
-Miralax was given 2 dose
-No BM yet
-Will receive angio abdomen/pelvis CT for a possible aortobi- iliac stent graft infection as well as can help to reassess bowel obs
-Monitor for BM closely
# DM
- Hba1c 7.5
- Continue SSI
- Plan starting metformin on DC
# Hyponatremia
- hypovolemic
- Continue IVF
- Follow BMP
# Acute kidney injury
-Resolved
-Cr 1.1 at likely baseline
-Hold lisinopril
#Essential hypertension
-cont metoprolol
- hold lisinopril
-Hydralazine 50 mg PRN
# Right-sided cervical radiculopathy and lumbar radiculopathy
-Patient has some pain in his lower back suggesting lumbar radiculopathy
-Strength is preserved
#Paroxysmal atrial fibrillation
-Continue Eliquis
-Continue metoprolol
#History of CAD
-Continue Plavix, statin
#History of PVCs
#Alcoholic cirrhosis
#Hepatitis C status post liver transplant in 2006 at [facility]
-Continue tacrolimus
#History of multiple bile duct stents
-All bile duct stents removed in the past by Dr Short at [facility], per patient`s report
#Abdominal aortic aneurysm status post repair at [facility]
-Aorto-bi iliac stent
#Chronic neuropathy
-Continue pregabalin
#COPD
DNR/DNI
DVT prophylaxis�heparin
Dispo eventual DC home with HC
Anticipated Discharge: 24 - 48 hours
Subjective/Interval History
-
Date of Service: April 30, 2024
Patient reports tolerating his diet well without abdominal pain. He reports still abdominal discomfort. Denies bowel movement since admission even given rectal suppository and oral laxative yesterday. He was given MiraLAX this morning. The
patient reports having flatulence. He denies chest pain, nausea, vomiting.
Objective Data
-
Labs:
Laboratory Results
04/30/24
06:00
WBC Pending
Hgb Pending
Hct Pending
Plt Count Pending
Sodium Pending
Potassium Pending
Chloride Pending
Carbon Dioxide Pending
BUN Pending
Creatinine Pending
Glucose Pending
Calcium Pending
Total Bilirubin Pending
AST Pending
ALT Pending
Alkaline Phosphatase Pending
Vital Signs:
Vital Signs
Temp Pulse Resp BP Pulse Ox
98.4 F 72 18 155/76 95
04/29/24 23:28 04/29/24 23:28 04/29/24 23:28 04/29/24 23:28 04/29/24 23:28
I&O
04/28/24 04/29/24 04/30/24
06:59 06:59 06:59
Intake Total 1290 / 1290 1400 / 1400 2240 / 2240
Output Total 2024 1925 / 192 900 / 900
Balance -735 / -735 -525 / -525 1340 / 1340
Review of Systems
-
History Source: Patient
EENT: Reports No Symptoms Reported
Respiratory: Reports No Symptoms
Cardiac: Reports No Symptoms
Abdomen/GI: Reports Constipated and Other (Abdominal discomfort on lower abdominal area/on right upper quadrant)
Genitourinary: Reports No Symptoms
Musculoskeletal: Reports No Symptoms
Skin: Reports No Symptoms
Neuro: Reports No Symptoms
Physical Exam
-
General: Well Developed and Well Nourished
HEENT: Normocephalic and Atraumatic
Respiratory: Clear to Auscultation
Cardiac: Regular Rhythm and S1/S2
GI: Soft, Nondistended and Tender (Mild tenderness on lower abdominal/RUQ area)
Musculoskeletal: No Clubbing, No Cyanosis and No Edema
Neuro: Awake, Alert and Oriented
Psych: Calm
[2024-04-30 07:30] LABS: Glucose - Point of Care 241 mg/dl (70-99)
[2024-04-30] MEDS: SPIRIVA RESPIMAT 2.5 MCG 2 PUFF INH (07:43)
[2024-04-30] MEDS: ADVAIR HFA 45/21 MCG INHALER 2 PUFF INH ×2 (07:43→19:45)
[2024-04-30 07:45] VITALS: BP 161/91
[2024-04-30] MEDS: NOVOLOG FLEXPEN-LOW RESISTANCE 2 UNITS SC (08:04)
[2024-04-30] MEDS: OSCAL 500 + D 500 MG PO ×2 (08:05→20:43)
[2024-04-30] MEDS: MAG-TAB SR 84 MG PO ×2 (08:05→20:42)
[2024-04-30] MEDS: LIPITOR 40 MG PO (08:05)
[2024-04-30] MEDS: ELIQUIS 5 MG PO ×2 (08:05→20:42)
[2024-04-30] MEDS: PROGRAF 1.5 MG PO ×2 (08:05→20:42)
[2024-04-30] MEDS: MIRALAX 17 GRAMS PO (08:05)
[2024-04-30] MEDS: PLAVIX 75 MG PO (08:05)
[2024-04-30] MEDS: LYRICA 200 MG PO ×2 (08:05→20:42)
[2024-04-30 08:06] LABS: Hematocrit 32.9 % (39.0-52.0); Hemoglobin 11.4 g/dL (13.0-18.0); Mean Corp Hgb Conc. 34.7 g/dL (33.0-37.0); Mean Corpuscular Hgb 32.4 pg (27.0-31.0); Mean Corpuscular Volume 93.5 fL (80.0-94.0); Mean Platelet Volume 12.4 fL (7.4-10.4); Platelet Count 276 10^3/uL (130-400); Red Blood Cell Count 3.52 10^6/uL (4.70-6.10); Red Cell Dist. Width 14.2 % (11.5-14.5); White Blood Cell Count 16.6 10^3/uL (4.8-10.8)
[2024-04-30] MEDS: THERAGRAN 1 TABLET PO (08:06)
[2024-04-30] MEDS: TOPROL XL 150 MG PO (08:06)
[2024-04-30] MEDS: PROTONIX 40 MG PO (08:06)
[2024-04-30 08:45] LABS: ALT (SGPT) 40 U/L (0-50); AST (SGOT) 37 U/L (17-59); Albumin 2.6 g/dl (3.5-5.0); Alkaline Phosphatase 318 U/L (38-126); Blood Urea Nitrogen 24 mg/dl (9-20); Calcium 8.5 mg/dl (8.4-10.2); Carbon Dioxide 22 mmol/L (22-30); Chloride 100 mmol/L (98-107); Estimated Creatinine Clearance 65 ml/min; Glucose 247 mg/dl (70-99); Potassium 4.6 mmol/L (3.5-5.1); Sodium 133 mmol/L (135-145); Total Bilirubin 1.9 mg/dl (0.2-1.3); Total Protein 5.5 g/dl (6.3-8.2); eGFR > 60.00
[2024-04-30] MEDS: NSS 1000 IV (08:59)
--- NOTE | 2024-04-30 10:40 | CM ---
CM reviewed chart, reviewed with Nurse, patient seen bedside, discussed no needs at this time. Referral [facility] for [facility], will keep updated on discharge status. Patient remains on IV antibiotics. CM will continue to follow for all discharge
planning needs.
Plan; home with VN when stable.
[2024-04-30 11:13] LABS: Glucose - Point of Care 352 mg/dl (70-99)
[2024-04-30] MEDS: NOVOLOG FLEXPEN-LOW RESISTANCE 5 UNITS SC (11:20)
[2024-04-30 14:50] VITALS: BP 161/85
--- NOTE | 2024-04-30 14:57 | PN.CDI ---
CDI
- -
CDI:
Physician Documentation Request
Admit Date: 04/28/24 08:00
Dear Doctor,
Please review the following and provide your response in the progress notes.
Clinical Indicators:
- Patient admit on 04/25
- 04/25-04/28 PN 'Enteritis/Ileitis'
- 04/29 PN 'Sepsis secondary to probable Enteritis/Ileitis'
- 'pos blood cx x 2 - pseudomonas sensi resulted'
Please clarify the following:
_Sepsis__ was present on admission
_Sepsis__ was not present on admission
Unable to determine
Use of terms such as suspected, likely, concern for, or probable (associated with a specific diagnosis that is being evaluated, monitored, or treated as if it exists) are acceptable and can be coded in the inpatient setting, when documented at the
time of discharge.
Thank you,
Iglesia Fuentes RN
CDI Specialist
Please use your independent medical judgment in providing your response.
--- NOTE | 2024-04-30 15:01 | W.PN.ID1 ---
Date of Service
Date of Service: April 30, 2024
Today's Communication
Evaluate for stent graft infection.
Assessment / Plan
#Pseudomonas bacteremia x 3 sets
# Enteritis/ileus/abdominal discomfort
# Leukocytosis - persists
# hx AAA s/p aortobi-iliac stent graft (at [facility])
# s/p liver transplant on tacrolimus
- repeat blood cx remains positive Pseudomonas
- Repeat bcx's until 2 sets clear
- Recommend CT angiogram abdomen/pelvis to evaluate for stent graft infection
- Continue Zosyn 4.5g IV q6
- Trend wbc
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
Paroxysmal atrial fibrillation
CAD
Hypertension
Neuropathy
COPD
AAA s/p aortobi-iliac stent graft
Cholecystectomy
Back surgery
History of multiple bile duct stents
Chief Complaint
-: Leukocytosis and Bacteremia
Subjective / Review of Systems
Still does not feel well. No BM yet. Abd discomfort.
Vital Signs / Physical Exam
Vital Signs
Vital Signs
Temp Pulse Resp BP Pulse Ox
98.7 F 74 18 161/85 97
04/30/24 14:50 04/30/24 14:50 04/30/24 14:50 04/30/24 14:50 04/30/24 14:50
Physical Exam
Constitutional: Non-toxic
Cardiovascular: Regular Rate and S1/S2
Pulmonary: Clear
Gastrointestinal: Soft, Tender (mild mid-abd), Distended and Decreased Bowel Sounds
Genito-Urinary: Negative CVA Tenderness
Extremities: Edema
Neurological: AO x 3
Objective Data
Lab Data
Lab Results
04/30/24 07:16
04/30/24 07:16
Estimated Creat Clear 65 ml/min 04/30/24 07:16
Lactic Acid Cancelled 04/30/24 06:00
Total Bilirubin 1.9 mg/dl (0.2-1.3) H 04/30/24 07:16
AST 37 U/L (17-59) 04/30/24 07:16
ALT 40 U/L (0-50) 04/30/24 07:16
Alkaline Phosphatase 318 U/L (38-126) H 04/30/24 07:16
Most recent labs reviewed.
Micro Results:
04/30/24 08:50 Blood Culture - Pending
Blood/Venous
04/28/24 13:34 Blood Culture - Preliminary
Blood/Venous Pseudomonas aeruginosa
Gram Stain - Preliminary
04/30/24 09:18 Blood Culture - Pending
Blood/Venous
04/29/24 06:51 Blood Culture - Preliminary
Blood/Venous No Growth in 24 hours- Final report to follow
04/25/24 15:59 Blood Culture - Preliminary
Blood/Venous Pseudomonas aeruginosa
Gram Stain - Preliminary
04/25/24 15:59 Blood Culture - Preliminary
Blood/Venous Pseudomonas aeruginosa
Gram Stain - Preliminary
04/25/24 17:36 Urine Culture - Final
Urine NO GROWTH
04/26/24 00:04 MRSA Screen - Final
Nose No Methicillin Resistant Staphylococcus aureus isolated.
04/25/24 08:58 Influenza Types A & B (NITIN) - Final
Nasal Swab Negative for Influenza A & B, NAAT
Negative results must be combined with clinical observations
and patient history.
Nucleic Acid Amplification test (NAAT)performed on the
[employer] platform.
04/28/24 CT a/p: Probable enteritis/ileus. Cannot rule out developing small bowel obstruction with questionable transition points as described.
04/28/24 Chest/abd xray: Nonobstructive bowel gas pattern. Mild colonic stool burden.
Care Review
Plan reviewed with: Physician (Dr. Cummings)
[2024-04-30] MEDS: APRESOLINE 50 MG PO (16:55)
[2024-04-30 16:56] LABS: Glucose - Point of Care 336 mg/dl (70-99)
[2024-04-30] MEDS: NOVOLOG FLEXPEN-LOW RESISTANCE 4 UNITS SC (16:57)
[2024-04-30] MEDS: DILAUDID 0.5 MG IV (17:50)
--- NOTE | 2024-04-30 20:36 | PTCARENOTE ---
Patient awaiting results of CT of abdomen; patient still remains without diet order. RN spoke to Georgia ZARCO; per RECREATION THERAPY TEACHER, okay to give oral medications with sips of water.
[2024-04-30 20:59] LABS: Glucose - Point of Care 265 mg/dl (70-99)
[2024-04-30 23:30] VITALS: BP 142/68
[2024-05-01] MEDS: NSS 1000 IV (01:49)
[2024-05-01] MEDS: DILAUDID 0.5 MG IV ×2 (03:25→13:46)
[2024-05-01] MEDS: ZOSYN 100 IV ×2 (03:25→10:08)
[2024-05-01] MEDS: ROXICODONE 5 MG PO (06:11)
[2024-05-01] MEDS: ZOFRAN 4 MG IV (06:11)
[2024-05-01 06:19] LABS: Glucose - Point of Care 247 mg/dl (70-99)
[2024-05-01] MEDS: MIRALAX 17 GRAMS PO (06:29)
[2024-05-01] MEDS: MYLICON 80 MG PO (06:29)
--- NOTE | 2024-05-01 06:31 | PTCARENOTE ---
Patient complaining of abdominal pain and discomfort. See MAR for Dilaudid administration. Per patient, he had little relief from Dilaudid. PRN Roxicodone and Zofran given to patient as well. Patient`s abdomen is soft and distended with positive
bowel sounds. Patient denies vomiting. [place] DISPOSAL OPERATOR made aware, order placed for simethicone. Per DISPOSAL OPERATOR, okay to give Miralax early. See chart for verbal order from nurse practitioner that it is okay to give PO medications.
[2024-05-01 07:25] VITALS: BP 120/75
[2024-05-01 07:46] LABS: Glucose - Point of Care 238 mg/dl (70-99)
[2024-05-01 07:51] LABS: Hematocrit 32.4 % (39.0-52.0); Hemoglobin 11.4 g/dL (13.0-18.0); Mean Corp Hgb Conc. 35.2 g/dL (33.0-37.0); Mean Corpuscular Hgb 32.9 pg (27.0-31.0); Mean Corpuscular Volume 93.4 fL (80.0-94.0); Mean Platelet Volume 12.2 fL (7.4-10.4); Platelet Count 278 10^3/uL (130-400); Red Blood Cell Count 3.47 10^6/uL (4.70-6.10); Red Cell Dist. Width 14.1 % (11.5-14.5); White Blood Cell Count 14.7 10^3/uL (4.8-10.8)
[2024-05-01] MEDS: NOVOLOG FLEXPEN-LOW RESISTANCE 2 UNITS SC ×2 (08:10→10:59)
[2024-05-01] MEDS: ELIQUIS 5 MG PO (08:11)
[2024-05-01] MEDS: LIPITOR 40 MG PO (08:12)
[2024-05-01] MEDS: SPIRIVA RESPIMAT 2.5 MCG 2 PUFF INH (08:12)
[2024-05-01] MEDS: LYRICA 200 MG PO (08:12)
[2024-05-01] MEDS: PROTONIX 40 MG PO (08:12)
[2024-05-01] MEDS: OSCAL 500 + D 500 MG PO (08:12)
[2024-05-01] MEDS: PLAVIX 75 MG PO (08:12)
[2024-05-01] MEDS: MAG-TAB SR 84 MG PO (08:12)
[2024-05-01] MEDS: ADVAIR HFA 45/21 MCG INHALER 2 PUFF INH (08:12)
[2024-05-01] MEDS: PROGRAF 1.5 MG PO (08:12)
[2024-05-01] MEDS: TOPROL XL 150 MG PO (08:13)
[2024-05-01] MEDS: THERAGRAN 1 TABLET PO (08:13)
--- NOTE | 2024-05-01 08:15 | CON.GI ---
Addendum entered and electronically signed by Junie Strauss DO 05/01/24 14:52:
Patient seen and examined independently of HEALTH INFORMATICS INSTRUCTOR. I agree with her note with my additions below
Also had a discussion with Dr. Brannon from vascular surgery regarding patient's need for urgent surgery for aortic graft removal in light of Pseudomonas infection.
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
and some midline abdominal pain. Patient had a CT angio with concern for acute aortitis which Dr. Brannon notes that that did not exist on other recent imaging is suggesting its acuity. On CT there is also a questionable distal common bile duct stone
versus mass versus sludge versus nothing and need to make sure this is not his etiology for his bacteremia.
Patient's LFTs have not dramatically changed. It is possible that this is all artifact and there is nothing there and in the setting of his aortic graft infection/findings that definitely takes precedence.
Patient's labs reveal no significant change in his total bilirubin since around January 2024. His alkaline phosphatase has been elevated chronically for years. Normal AST/ALT.
Dr. Brannon suggested his graft surgery is urgent and is taking him to the OR now. Our plans were to get an MRCP in order to better visualize the bile ducts. Plan would have been ERCP if there was an obstructing lesion since that could also cause a
bacteremia. This may also have been the nidus that seeded the graft. Regardless he is going to the OR.
He will remain on antibiotics and may need further imaging postop to determine if an ERCP is warranted.
I did discuss doing the MRCP prior to surgery however Dr. Brannon is taking him now since there was such an acute change in the aorta with increased abdominal pain which would be catastrophic since Dr. Brannon states the aneurysm sac has changed. It
enlarged, thickened with inflammatory changes around it. Patient is very high risk.
Please call us back after patient stabilizes post op. thank you
Original Note:
Consultation
-
Date/Time Consultation Requested: 05/01/24 0600
Date/Time Consultation Performed: 05/01/24 0816
Requesting Provider: Shannon Cummings MD
Performing Provider: GUILLERMO Maciel, Junie Strauss DO
Reason for Consultation: abnormal imaging
Medical History
Chief Complaint / HPI
Chief Complaint: decreased appetite, bloating
History of Present Illness:
Pt is 73yo with hx ETOH hepatitis/hep C s/p liver transplant 2006 [facility] on chronic tacrolimus, multiple bile duct stents, PAF on Eliquis, CAD with prior TX and stents on Plavix , PVC's, COPD, HTN, AAA with prior repair at [facility], New DM,
presents with fever, nausea, decreased oral intakes, diarrhea then constipation, bloating and mild cough. Pt has multiple imaging studies since admission with CXR noted scarring no PNA, CT a/p with IV contrast with probable enteritis/ileus cannot
rule out SBO, obs series with non obs pattern mild stool burden, and CTA with concern for acute aortitis, extrahepatic biliary dilatation and suggest obstructing 1.3 cm mass distal CBD, choledocholithiasis or less likely bile duct CA with mild wall
thickening of common hepatic and common bile duct suggest cholangitis, s/p liver transplant with pneumobilia, cystitis, chronic renal disease, DDD, CM and atherosclerosis. Labs notable for WBC up to 16,600 on admission 11-12 normal platelets and
mild LFT elevation with bili 1.7, AST 32, ALT 24, alk phos 308. Blood cx notable for Pseudomonas with ID following.
At this time patient with some limited history but currently admits to some bloating and constipation. Minimal nausea but feeling hungry and asking for diet. He does report some recent dysphagia over last 6 months but unable to give details
but appears to be with solids and liquids. He also admits to some mid abdominal pain 7-8 but also report some RUQ pain a few days ago to medical team. He He denies fever, sweats, wt loss, or rectal bleeding. Last EGD ? [facility] with prior
stenting and colonoscopy several years ago at [facility].
Past Medical History
Past Medical History: Arrhythmias (PAF, PVC's), CAD, COPD, HTN, NIDDM (newly diagnosed ), TX and Other (ETOH cirrhosis- hep C s/p liver transplant 2006 at [facility], multiple bile duct stent, AAA)
Past Surgical History: Cardiac (stents ), Orthopedic (back surgery) and Other (liver transplant 2006, AAA)
Social History
Tobacco: Former Smoker (quit January 2024 )
Alcohol: Occasional (very rare since transplant and hx heavy use prior to transplant )
Drug: Marijuana (daily ) and Other (distant hx drug use years ago )
Living: With Family (cousin)
Employment: Retired
Family History
Family History: Other (no family hx liver problems)
Allergies / Home Medications
Allergy/AdvReac Type Severity Reaction Status Date / Time
No Known Allergies Allergy Verified 04/25/24 08:53
�Medication �Instructions �Recorded
calcium 500 mg (as 500 mg PO BID 11/30/13
carbonate)-vitamin D3 10 mcg (400
unit) tablet (Calcium 500 + D)
tiotropium bromide 2.5 2 puff inhalation R DAILY 11/28/18
mcg/actuation mist for inhalation
(Spiriva Respimat)
apixaban 5 mg tablet (Eliquis) 5 mg PO BID #60 tabs 11/30/18
clopidogrel 75 mg tablet 75 mg PO DAILY #30 tabs 11/30/18
pantoprazole 40 mg tablet,delayed 40 mg PO DAILY #30 tabs 11/30/18
release
albuterol sulfate 90 mcg/actuation 2 puff inhalation R Q6HPRN PRN sob 04/25/24
aerosol inhaler
amlodipine 2.5 mg tablet 2.5 mg PO DAILY 04/25/24
atorvastatin 80 mg tablet 40 mg PO DAILY 04/25/24
fluticasone 100 mcg-salmeterol 50 2 inh inhalation R BID 04/25/24
mcg/dose blistr powdr for
inhalation
furosemide 40 mg tablet 40 mg PO DAILY 04/25/24
lisinopril 10 mg tablet 10 mg PO DAILY 04/25/24
magnesium oxide 420 mg tablet 420 mg PO BID 04/25/24
metformin 500 mg tablet 500 mg PO DAILY 04/25/24
metoprolol succinate 100 mg 150 mg PO DAILY 04/25/24
tablet,extended release 24 hr
pregabalin 200 mg capsule 200 mg PO BID 04/25/24
tacrolimus 0.5 mg capsule, 1.5 mg PO BID 04/25/24
immediate-release
therapeutic multivitamin 1 tab PO DAILY 04/25/24
Review of Systems
-
History Source: Patient and Family
Constitutional: Reports Fatigue
EENT: Reports No Symptoms
Respiratory: Reports Cough (mild chronic worsening per patient with hx COPD)
Cardiac: Reports No Symptoms
Abdomen/GI: Reports Abdominal Pain (mid/ RUQ), Diarrhea (prior to admission), Constipated and Other (bloating )
: Reports No Symptoms
Musculoskeletal: Reports No Symptoms
Skin: Reports No Symptoms
Neurological: Reports Weakness
Endocrine: Reports No Symptoms
Hematologic/Lymphatic: Reports No Symptoms
Vital Signs
Temp Pulse Resp BP Pulse Ox
98.4 F 70 18 142/68 96
04/30/24 23:30 04/30/24 23:30 04/30/24 23:30 04/30/24 23:30 04/30/24 23:30
Physical Exam
Exam
General: Other (elderly male some forgetfulness but cooperative )
HEENT: Normocephalic and Anicteric
Respiratory: Wheezes (slight exp wheeze, minimal cough)
Cardiac: Regular Rhythm and Peripheral Edema
GI: Soft, Non Distended and Tender (minimal mid abdomen)
Musculoskeletal: No Clubbing and No Cyanosis
Skin: Warm and Dry
Neuro: Awake, Alert and AO x 3
Psych: Calm
Results
WBC 14.7 10^3/uL (4.8-10.8) H 05/01/24 07:14
Hgb 11.4 g/dL (13.0-18.0) L 05/01/24 07:14
Hct 32.4 % (39.0-52.0) L 05/01/24 07:14
MCV 93.4 fL (80.0-94.0) 05/01/24 07:14
Plt Count 278 10^3/uL (130-400) 05/01/24 07:14
Absolute Neuts (auto) 11.4 10^3/uL (1.4-6.5) H 04/29/24 06:51
Sodium 133 mmol/L (135-145) L 04/30/24 07:16
Potassium 4.6 mmol/L (3.5-5.1) 04/30/24 07:16
Chloride 100 mmol/L (98-107) 04/30/24 07:16
Carbon Dioxide 22 mmol/L (22-30) 04/30/24 07:16
BUN 24 mg/dl (9-20) H 04/30/24 07:16
Creatinine 1.1 mg/dL (0.7-1.3) 04/30/24 07:16
Calcium 8.5 mg/dl (8.4-10.2) 04/30/24 07:16
Total Bilirubin 1.9 mg/dl (0.2-1.3) H 04/30/24 07:16
AST 37 U/L (17-59) 04/30/24 07:16
ALT 40 U/L (0-50) 04/30/24 07:16
Alkaline Phosphatase 318 U/L (38-126) H 04/30/24 07:16
Lipase 37 U/L (23-300) 04/29/24 06:51
Diagnostic Image Results:
04/25/24 CXR
Thin linear densities within the left lower lung, morphologic appearance suggestive of linear scarring.
No evidence of consolidation to suggest pneumonia.
04/25/24 CT Abd/Pel (IV only)-DH only 1. Probable enteritis/ileus. Cannot rule out developing small bowel obstruction with questionable transition points as described.
04/28/24 CR Obstruct Series W/pa Chest
Nonobstructive bowel gas pattern.
Mild colonic stool burden.
04/30/24 CT Abd/pelvis Angio W/wo Iv
1. Aortobiiliac endograft in place with an interval increase in size of the [place] aneurysm sac around the endograft, interval increase in circumferential wall thickening of the [place] aneurysm, mild retroperitoneal inflammation, and increased
small retroperitoneal lymph nodes. The constellation of findings is suggestive of ACUTE AORTITIS which could be secondary to infection or inflammatory disease.
2. Moderate extrahepatic biliary dilatation with suggestion of an obstructing 1.3 cm intraluminal mass in the distal common bile duct. Diagnostic possibilities are (1) choledocholithiasis or (2) less likely bile duct cancer. Mild wall thickening
and hyperenhancement of the common hepatic and common bile ducts suggesting CHOLANGITIS.
3. Right upper quadrant liver transplant in place with mild pneumobilia in the liver.
4. Mild diffuse urinary bladder wall thickening with mild perivesical inflammation suggesting cystitis.
5. Mild to moderate chronic bilateral renal disease.
6. Severe multilevel lumbar discogenic degenerative disease.
7. Mild cardiomegaly.
8. Severe calcific atherosclerotic plaque in the coronary arteries.
Prior GI Procedures:
EGD: last with ERCP several years ago
Colonoscopy: 2004 diverticulosis-- last at [facility] several years ago
Assessment / Plan
-
Pt is 73yo with hx ETOH hepatitis/hep C s/p liver transplant 2006 [facility] on chronic tacrolimus, multiple bile duct stents, PAF on Eliquis, CAD with prior TX and stents on Plavix , PVC's, COPD, HTN, AAA with prior repair at [facility], New DM,
presents with fever, nausea, decreased oral intakes, diarrhea then constipation, bloating and mild cough. Pt has multiple imaging studies since admission with CXR noted scarring no PNA, CT a/p with IV contrast with probable enteritis/ileus cannot
rule out SBO, obs series with non obs pattern mild stool burden, and CTA with concern for acute aortitis, extrahepatic biliary dilatation and suggest obstructing 1.3 cm mass distal CBD, choledocholithiasis or less likely bile duct CA with mild wall
thickening of common hepatic and common bile duct suggest cholangitis, s/p liver transplant with pneumobilia, cystitis, chronic renal disease, DDD, CM and atherosclerosis. Labs notable for WBC up to 16,600 on admission 11-12 normal platelets and
mild LFT elevation with bili 1.7, AST 32, ALT 24, alk phos 308. Blood cx notable for Pseudomonas with ID following.
-nausea/bloating/decreased appetite prior to admission
-CTA with extrahepatic biliary dilatation and suggest obstructing mass distal CBD/choledocholithiasis
-diarrhea then constipation
-CHARISSE on admission
-hypotension on admission now improved
-persistent pseudomonas bacteremia
-Ct with enteritis/ileus
-CTA with concern for aortitis
-hx liver transplant 2006(ETOH and hep C) [facility] on chronic tacrolimus
-mild bili and alk phos elevation
-hx multiple biliary stents last several years ago with ? bile duct narrowing
-CAD/stents on Plavix
-PAF on Eliquis
other med problems:
-PVC's
-COPD
-HTN
-AAA with aortobil-iliac graft at [facility]
-new DM
-CM
-DDD
PLAN:etiology of bacteremia with nausea/change in bowel habits, decreased appetite related to biliary issue with possible mass vs stone on imaging, aortitis, vs other
plan for MRI/MRCP to further eval bile ducts
will request most recent [facility] records(per pt has been stable with yearly visits)
reviewed with hospitalist to hold Plavix now if ERCP needed- last dose 3/13 AM and still remain on Eliquis
ok for trial of ADA diet as not vomiting
no stools in several days-- cont miralax daily add second dose today and add senna -- monitor closely as possible ileus picture on admission
cont mag -- on oral supplement prior to admission
ID following for abx
remains on tacrolimus
updated daughter zion and medical team
-
-
Thank you for consultation and allowing me to participate in the patient's care. Please call the oracle distribution consultant GI physician during the after hours with any questions or concerns.
[2024-05-01 08:31] LABS: ALT (SGPT) 34 U/L (0-50); AST (SGOT) 32 U/L (17-59); Albumin 2.5 g/dl (3.5-5.0); Alkaline Phosphatase 308 U/L (38-126); Blood Urea Nitrogen 18 mg/dl (9-20); Calcium 8.5 mg/dl (8.4-10.2); Carbon Dioxide 22 mmol/L (22-30); Chloride 102 mmol/L (98-107); Estimated Creatinine Clearance 71 ml/min; Glucose 216 mg/dl (70-99); Sodium 131 mmol/L (135-145); Total Bilirubin 1.7 mg/dl (0.2-1.3); Total Protein 5.3 g/dl (6.3-8.2); eGFR > 60.00
[2024-05-01 09:02] LABS: Potassium 4.6 mmol/L (3.5-5.1)
--- NOTE | 2024-05-01 09:13 | W.PN.HOSP.TC ---
Addendum entered and electronically signed by Aron Wilson MD 05/01/24 20:33:
Attending Addendum-
I saw and evaluated the patient. I reviewed the resident�s note and agree with findings and plan as documented in the resident�s note. Sub: No BM. Complains of abd pain. Denies N/V. Denies fevers chills. No diarrhea. Denies urinary complaints
Full 12 point ROS reviewed and negative except as documented Exam: Vitals reviewed in chart GEN-NAD heart RRR lungs clear abd distention pos BS no rebound guarding TTP epigastric. LE no edema
Plan:
#Sepsis secondary to cholangitis vs aortitis
-persistent pos blood cx- 04/25 x 2, 04/28, and 04/29 - pseudomonas
-leukocytosis trending down
-Abdominal aortic aneurysm status post repair and stent at [facility]
-urine cx- NGTD
-cont zosyn #6
-cont NPO
-repeat blood cx - 04/30-NGTD
-CTA A/P 04/29-
1. Aortobiiliac endograft in place with an interval increase in size of the [place] aneurysm sac around the endograft, interval increase in circumferential wall thickening of the [place] aneurysm, mild retroperitoneal inflammation, and increased
small retroperitoneal lymph nodes. The constellation of findings is suggestive of ACUTE AORTITIS which could be secondary to infection or inflammatory disease.
2. Moderate extrahepatic biliary dilatation with suggestion of an obstructing 1.3 cm intraluminal mass in the distal common bile duct. Diagnostic possibilities are (1) choledocholithiasis or (2) less likely bile duct cancer. Mild wall thickening
and hyperenhancement of the common hepatic and common bile ducts suggesting CHOLANGITIS.
3. Right upper quadrant liver transplant in place with mild pneumobilia in the liver.
4. Mild diffuse urinary bladder wall thickening with mild perivesical inflammation suggesting cystitis.
-ECHO 04/30-
1. Normal left ventricular size and systolic function without regional wall
motion abnormalities. left ventricular ejection fraction is 55 to 60%
2. Thickened mitral valve leaflets with mild to moderate eccentric mitral
regurgitation
3. Dilated aortic root. Sinus of Valsalva measures 4.7 cm, sinotubular junction
measures 4.0 cm, ascending aorta measures 4.0 cm. Aortic arch not well
visualized.
*Compared to prior echocardiogram from 2019, there is now mild to moderate
eccentric mitral regurgitation. No obvious vegetations noted. Depending on
clinical concern, consider transesophageal echocardiogram.
-eventually will need GINGER
-c/s GI and vascular surgery for eval
-likely OR for aortic stent removal and possible bypass today
-will need eventual ERCP for stone
# Constipation
- aggressive bowel regimen
- monitor for BM closely
# DM
- HBa1c 7.5
- cont SSI
- restart metformin on DC
# Hyponatremia
- hypovolemic
- cont IVF
- repeat BMP in am
# Acute kidney injury
-resolved
-Hold lisinopril
# Right-sided cervical radiculopathy and lumbar radiculopathy
-pain control
#Paroxysmal atrial fibrillation
-hold Eliquis
-Continue metoprolol
#History of CAD
-hold Plavix, cont statin
#History of PVCs
#Alcoholic cirrhosis
#Hepatitis C status post liver transplant in 2006 at [facility]
-Continue tacrolimus
#History of multiple bile duct stents- stents removed - onc Dr. Tristian Short
#Essential hypertension
-cont metoprolol
-hold lisinopril
#Chronic neuropathy
-hold pregabalin
#COPD
DNR/DNI->Full
DVT prophylaxis�heparin
Dispo likely will need SNF on DC
ACP
Patient consented to discuss, was alone, time spent explanation of advance directives, changes in health status, patient�s health care wishes if the patient becomes unable to make health decisions, goals of care, code status, and prognosis patient
desires to be full code and pursue emergent surgery 'i wanna do everything i can to live doc'- 16 minutes
Time spent coordinating care, review of plan of care with resident, personally reviewed previous records in EMR, med rec, labs, radiology, d/w nursing, family total time documented is exclusive of any additional time listed that was spent in advance
care planning discussion -�55 minutes
Original Note:
Today's Communication/Plan
-
-Acute surgery plan for aortitis by vascular surgery team
-MRCP is planning to be obtained to decide to proceed with ERCP after patient stabilizes postop
-Plavix on hold per GI recommendation-Will discuss with GI and vascular surgery to continue or not
Assessment / Plan
Assessment / Plan
Assessment
Patient is a 73-year-old male with a past medical history of
The patient was presented to ER after having 1 episode of large amount diarrhea and his CT abdomen pelvis showed probable enteritis/ileitis. The patient was admitted with a concern of probable sepsis to enteritis and he was started on Zosyn. His
diarrhea diarrhea improved but he has been having ongoing abdominal discomfort as well as constipation. Due to his persistent bacteremia with Pseudomonas aeruginosa, the patient was consulted to ID. It was recommended to have a CT angio pelvis
abdomen for possible or to be iliac stent infection. CT angio abdomen pelvis showed acute aortitis and intraluminal mass in the distal common bile duct. Vascular surgery and gastroenterology team was consulted to assist the patient.
Problem list
Acute aortitis
CBD mass
Sepsis secondary to probable Enteritis/Ileitis
Leukocytosis
CHARISSE
Hypertansion
Chronic pain to cervical/lumbar radiculopathy
Paroxysmal atrial fibrillation
History of CAD
History of PVCs
Hx of Alcoholic cirrhosis
Hepatitis C s/p liver transplant in 2006 and [facility] with with ongoing
History of multiple bile duct stents
Abdominal aortic aneurysm s/p repair at [facility]
Hyperlipidemia
Essential hypertension
COPD
#Acute arteritis
-Hx of aorto bi iliac stent 19 years ago due AAA at [facility]
-CT angio abdomen: is suggestive of acute aortitis
-Vascular surgery on board
-Planned and acute surgery
#Sepsis suspected secondary to AAA stent graft infection vs hepatobiliary infection vs Enteritis/Ileitis
-Continue Zosyn /pos blood cx x 2 - pseudomonas-sensitive to Zosyn
-Second blood culture prelim gram-negative bacillus// final result pending
-Leukocytosis
-Urine culture- NGTD
-Abdominal x-ray -obstructive series-Negative for bowel obstruction
-No further diarrhea and passing gas. Tolerating diabetic diet
-Hx of bile duct stent placement-all bile duct stents removed in the past by Dr Short at [facility], per patient`s report
#CBD mass
-History of liver transplantation in 2006 at [facility]-on tacrolimus
-History of multiple bile duct stents-all removed per patient report by Dr Short at [facility]
-GI on board with the plan of MRCP
-ERCP planned based on MRCP findings
-Plavix recommend to hold on-will be discussed with this vascular surgery and GI team to continue or hold/last dose 3:13 AM
-On Eliquis still
# Constipation
-Abdominal z-[id number] series 04/28: Mild stool burden without obstruction findings
-Rectal rectal suppository was given on 04/29
-Miralax was given 2 dose
-No BM yet
-Will receive angio abdomen/pelvis CT for a possible aortobi- iliac stent graft infection as well as can help to reassess bowel obs
-Monitor for BM closely
# DM
- Hba1c 7.5
- Continue SSI
- Plan starting metformin on DC
# Hyponatremia
- hypovolemic
- Continue IVF
- Follow BMP
# Acute kidney injury
-Resolved
-Cr 1.0 at likely baseline
-Hold lisinopril
#Essential hypertension
-cont metoprolol
- hold lisinopril
-Hydralazine 50 mg PRN
# Right-sided cervical radiculopathy and lumbar radiculopathy
-Patient has some pain in his lower back suggesting lumbar radiculopathy
-Strength is preserved
#Paroxysmal atrial fibrillation
-Continue Eliquis
-Continue metoprolol
#History of CAD
-Plavix on hold for now with the last dose on 05/01 am
-Continue statin
#History of PVCs
#Alcoholic cirrhosis
#Chronic neuropathy
-Continue pregabalin
#COPD
DNR/DNI
DVT prophylaxis�heparin
Dispo eventual DC home with HC
Anticipated Discharge: 24 - 48 hours
Subjective/Interval History
-
Date of Service: May 01, 2024
Patient reports still feeling abdominal discomfort. The patient did not have a bowel movement has flatulence.
Objective Data
-
Labs:
Laboratory Results
05/01/24
07:14
WBC 14.7 H
Hgb 11.4 L
Hct 32.4 L
Plt Count 278
Sodium 131 L
Potassium 4.6
Chloride 102
Carbon Dioxide 22
BUN 18
Creatinine 1.0
Glucose 216 H
Calcium 8.5
Total Bilirubin 1.7 H
AST 32
ALT 34
Alkaline Phosphatase 308 H
Vital Signs:
Vital Signs
Temp Pulse Resp BP Pulse Ox
98.6 F 78 18 120/75 98
05/01/24 07:25 05/01/24 07:25 05/01/24 07:25 05/01/24 07:25 05/01/24 07:25
I&O
04/30/24 05/01/24 05/02/24
06:59 06:59 06:59
Intake Total 2240 / 2240 1290 / 1290
Output Total 900 / 900 1050 / 1050
Balance 1340 / 1340 240 / 240
Review of Systems
-
History Source: Patient
EENT: Reports No Symptoms Reported
Respiratory: Reports No Symptoms
Cardiac: Reports No Symptoms
Abdomen/GI: Reports Other (Reports abdominal discomfort)
Genitourinary: Reports No Symptoms
Musculoskeletal: Reports No Symptoms
Skin: Reports No Symptoms
Neuro: Reports No Symptoms and Other
Physical Exam
-
General: Well Developed, Well Nourished and No Apparent Distress
HEENT: Normocephalic and Atraumatic
Respiratory: Clear to Auscultation
Cardiac: Regular Rhythm and S1/S2
GI: Soft and Tender (Mild tenderness on mid abdominal area )
Musculoskeletal: No Clubbing, No Cyanosis and No Edema
Skin: Warm
Neuro: Awake, Alert, Oriented, AO x 3 and Nonfocal/Grossly Intact
Psych: Calm
[2024-05-01 09:43] LABS: Urine Albumin 2+ (Neg - Trace); Urine Bilirubin Negative (Negative); Urine Character Clear (Clear); Urine Color Yellow; Urine Glucose Negative (Negative); Urine Ketone Negative (Negative); Urine Leukocyte Negative (Negative); Urine Nitrite Negative (Negative); Urine Occult Blood 1+ (Negative); Urine Specific Gravity 1.015 (<1.030); Urine Urobilinogen Negative (Neg - 1+)
[2024-05-01 10:08] LABS: Urine Bacteria Few (Negative)
[2024-05-01 10:55] LABS: Glucose - Point of Care 226 mg/dl (70-99)
--- NOTE | 2024-05-01 11:01 | CON.VAS ---
Consultation
Consultation Request
Performing Provider: Clovis
Reason for Consultation: Aortitis
Medical History
-
Chief Complaint: Abd pain
History of Present Illness:
73-year-old male admitted through the emergency room on 04/25/2024 for workup for possible enteritis. Patient had complaints of diarrhea, body aches, nausea, decreased oral intake, cough. Other past medical history paroxysmal A-fib on Eliquis, CAD,
alcoholic cirrhosis, hep C status post liver transplant 2006 at [facility], bile duct stents x 5, AAA repair at [facility], hypertension, COPD, neuropathy, former smoker. Since admission patient being treated for sepsis secondary to probable
enteritis/ileitis, 3 sets of blood cultures positive for Pseudomonas. Acute kidney injury now resolved.
CT impression: Aortobiiliac endograft in place with an interval increase in size of the osage aneurysm sac around the endograft, interval increase in circumferential wall thickening of the osage aneurysm, mild retroperitoneal inflammation, and
increased small retroperitoneal lymph nodes. The constellation of findings is suggestive of ACUTE AORTITIS which could be secondary to infection or inflammatory disease.
Vascular consult for possible acute aortitis found on CT scan.
Patient seen at bedside this a.m. Patient complains of chronic bloating and gas. Admits to abdominal pain to deep palpation. Abdomen is soft, rotund. Admits to chronic back pain with no change. Patient is not a great historian. Patient ate a
meal at 10 AM and tolerated that well. Bilateral femoral pulses +2. Bilateral DP and PT pulses +2. +3 pitting edema from knees to toes.
Past Medical History
Past Medical History: Other (paroxysmal A-fib on Eliquis, CAD, alcoholic cirrhosis, hep C status post liver transplant 2007 at [facility], bile duct stents x 5, AAA repair at [facility], hypertension, COPD, neuropathy, former smoker)
Past Surgical History: Other (Liver transplant, AAA repair, biliary stents)
Social History
Tobacco: Former Smoker
Alcohol: Former (Former EtOH abuse-admits to alcohol occasionally)
Drug: Former User and Marijuana (Daily)
Family History
Family History: Reviewed & Not Pertinent
Allergies / Home Medications
Allergy/AdvReac Type Severity Reaction Status Date / Time
No Known Allergies Allergy Verified 04/25/24 08:53
�Medication �Instructions �Recorded �Confirmed �Type
calcium 500 mg (as 500 mg PO BID 11/30/13 04/25/24 History
carbonate)-vitamin D3 10 mcg (400
unit) tablet (Calcium 500 + D)
tiotropium bromide 2.5 2 puff inhalation R DAILY 11/28/18 04/25/24 History
mcg/actuation mist for inhalation
(Spiriva Respimat)
apixaban 5 mg tablet (Eliquis) 5 mg PO BID #60 tabs 11/30/18 04/25/24 Rx
clopidogrel 75 mg tablet 75 mg PO DAILY #30 tabs 11/30/18 04/25/24 Rx
pantoprazole 40 mg tablet,delayed 40 mg PO DAILY #30 tabs 11/30/18 04/25/24 Rx
release
albuterol sulfate 90 mcg/actuation 2 puff inhalation R Q6HPRN PRN sob 04/25/24 04/25/24 History
aerosol inhaler
amlodipine 2.5 mg tablet 2.5 mg PO DAILY 04/25/24 History
atorvastatin 80 mg tablet 40 mg PO DAILY 04/25/24 04/25/24 History
fluticasone 100 mcg-salmeterol 50 2 inh inhalation R BID 04/25/24 04/25/24 History
mcg/dose blistr powdr for
inhalation
furosemide 40 mg tablet 40 mg PO DAILY 04/25/24 04/25/24 History
lisinopril 10 mg tablet 10 mg PO DAILY 04/25/24 History
magnesium oxide 420 mg tablet 420 mg PO BID 04/25/24 04/25/24 History
metformin 500 mg tablet 500 mg PO DAILY 04/25/24 History
metoprolol succinate 100 mg 150 mg PO DAILY 04/25/24 04/25/24 History
tablet,extended release 24 hr
pregabalin 200 mg capsule 200 mg PO BID 04/25/24 04/25/24 History
tacrolimus 0.5 mg capsule, 1.5 mg PO BID 04/25/24 History
immediate-release
therapeutic multivitamin 1 tab PO DAILY 04/25/24 04/25/24 History
Review of Systems
-
History Source: Patient
Constitutional: Reports Fever (Resolved) and Chills (Resolved)
EENT: Reports No Symptoms
Respiratory: Reports No Symptoms
Cardiac: Reports No Symptoms
Vascular: Denies Leg Pain / Claudication
Abdomen/GI: Reports Nausea (Resolved), Diarrhea and Pain (Not at this time)
: Reports No Symptoms
Musculoskeletal: Reports No Symptoms
Skin: Reports No Symptoms
Neurological: Reports No Symptoms
Physical Exam
Vital Signs
Temp Pulse Resp BP Pulse Ox
98.6 F 78 18 120/75 98
05/01/24 07:25 05/01/24 07:25 05/01/24 07:25 05/01/24 07:25 05/01/24 07:25
Lab Results
05/01/24 07:14
05/01/24 07:14
Physical Exam
General: No Apparent Distress
HEENT: Normocephalic and Atraumatic
Respiratory: Non Labored Respirations
Cardiac: Negative JVD
GI: Soft, Non Tender and Other (Obese)
Musculoskeletal: No Clubbing, No Cyanosis and Edema (Plus today bilateral lower extremities)
Skin: Warm and Dry
Neuro: Awake, Alert and Oriented
Psych: Calm
Pulses: Bilateral Femoral: +2, Bilateral Dorsalis Pedis: +2 and Bilateral Posterior Tibial: +2
Assessment / Plan
-
73-year-old male here for possible enteritis
Acute aortitis suggested on CT scan
Plan:
-NPO
-Reviewed DNR status and pt would like to rescind
-Plan for OR emergently today with Dr Brannon for graft explant
Data Reviewed
-
CT Scan: Discussed with Patient
Labs: Labs Reviewed by me
--- NOTE | 2024-05-01 11:58 | W.PN.ID1 ---
Date of Service
Date of Service: May 01, 2024
Today's Communication
Continue Zosyn.
Assessment / Plan
# Sustained Pseudomonas bacteremia- source from infected stent grafts and/or biliary duct obstruction
# AAA stent graft infection.
hx AAA s/p aortobi-iliac stent graft (at [facility])
CTA: acute aortitis
# Biliary obstruction with intraluminal mass in CBD
# Leukocytosis - persists
# hx liver transplant on tacrolimus
- repeat blood cx's remain positive Pseudomonas
- Repeat bcx's until at least 2 sets clear
-Appreciat GI. For ERCP
-Appreciate Vascular- possible removal of stent grafts
- Continue Zosyn 4.5g IV q6
- Trend wbc
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
Paroxysmal atrial fibrillation
CAD
Hypertension
Neuropathy
COPD
AAA s/p aortobi-iliac stent graft
Cholecystectomy
Back surgery
History of multiple bile duct stents
Chief Complaint
-: Leukocytosis and Bacteremia
Subjective / Review of Systems
Passing gas. No BM. Abd discomfort better.
Vital Signs / Physical Exam
Vital Signs
Vital Signs
Temp Pulse Resp BP Pulse Ox
98.6 F 78 18 120/75 98
05/01/24 07:25 05/01/24 07:25 05/01/24 07:25 05/01/24 07:25 05/01/24 07:25
Physical Exam
Constitutional: No Acute Distress
Pulmonary: Clear
Gastrointestinal: Soft, Non Tender, Distended and Normal Bowel Sounds
Genito-Urinary: Negative CVA Tenderness
Musculoskeletal: Negative Spinal Tenderness
Objective Data
Lab Data
Lab Results
05/01/24 07:14
05/01/24 07:14
Estimated Creat Clear 71 ml/min 05/01/24 07:14
Lactic Acid Cancelled 04/30/24 06:00
Total Bilirubin 1.7 mg/dl (0.2-1.3) H 05/01/24 07:14
AST 32 U/L (17-59) 05/01/24 07:14
ALT 34 U/L (0-50) 05/01/24 07:14
Alkaline Phosphatase 308 U/L (38-126) H 05/01/24 07:14
Most recent labs reviewed.
Micro Results:
04/29/24 06:51 Blood Culture - Preliminary
Blood/Venous Positive culture in progress
Gram Stain - Preliminary
04/30/24 09:18 Blood Culture - Preliminary
Blood/Venous No Growth in 24 hours- Final report to follow
04/30/24 08:50 Blood Culture - Pending
Blood/Venous
04/28/24 13:34 Blood Culture - Preliminary
Blood/Venous Pseudomonas aeruginosa
Gram Stain - Preliminary
04/25/24 15:59 Blood Culture - Preliminary
Blood/Venous Pseudomonas aeruginosa
Gram Stain - Preliminary
04/25/24 15:59 Blood Culture - Preliminary
Blood/Venous Pseudomonas aeruginosa
Gram Stain - Preliminary
04/25/24 17:36 Urine Culture - Final
Urine NO GROWTH
04/26/24 00:04 MRSA Screen - Final
Nose No Methicillin Resistant Staphylococcus aureus isolated.
04/25/24 08:58 Influenza Types A & B (NITIN) - Final
Nasal Swab Negative for Influenza A & B, NAAT
Negative results must be combined with clinical observations
and patient history.
Nucleic Acid Amplification test (NAAT)performed on the
Viddler platform.
04/28/24 CT a/p: Probable enteritis/ileus. Cannot rule out developing small bowel obstruction with questionable transition points as described.
04/28/24 Chest/abd xray: Nonobstructive bowel gas pattern. Mild colonic stool burden.
04/30/24 CT angiogram a/p: Aortobiiliac endograft in place with an interval increase in size of the nez perce aneurysm sac around the endograft, interval increase in circumferential wall thickening of the nez perce aneurysm, mild retroperitoneal
inflammation, and increased small retroperitoneal lymph nodes. The constellation of findings is suggestive of ACUTE AORTITIS which could be secondary to infection or inflammatory disease.
2. Moderate extrahepatic biliary dilatation with suggestion of an obstructing 1.3 cm intraluminal mass in the distal common bile duct. Diagnostic possibilities are (1) choledocholithiasis or (2) less likely bile duct cancer. Mild wall thickening
and hyperenhancement of the common hepatic and common bile ducts suggesting CHOLANGITIS.
3. Right upper quadrant liver transplant in place with mild pneumobilia in the liver.
Care Review
Plan reviewed with: Other Provider (Vascular team)
--- NOTE | 2024-05-01 13:42 | W.PN.UPDATE ---
Addendum entered and electronically signed by Willis Brannon MD 05/01/24 15:38:
Left panel 04/30/24, right panel 04/25/24
Addendum entered and electronically signed by Willis Brannon MD 05/01/24 14:24:
Discussed with patient my recommendation/plan for ax-bifem and graft removal rather than in-situ replacement given virulent pseudomonas infection. Discussed this doesn't guarantee prevention of infection of aortic/iliac stumps and/or ax-bifem graft
, but may be safer than in-line replacement of graft in a pseudomonas infected field. Additional risks discussed.
He understands all and wishes to proceed.
NOTE I DISCUSSED HIS DNR STATUS AND THAT WOULD NEED TO BE RESCINDED FOR SURGERY - HE IS INDEED IN AGREEMENT WITH RESCINDING FOR SURGERY.
I also called his daughter via phone per his request and explained all to her - she's in agreement.
I also spoke to GI doctor - she can't guarantee CBD not infective source - and would favor MRCP at some point - however i discussed my concern about acute aortic change on CT and increased abd pain. Agree with OR for explant and then suppress with
antibiotics and workup CBD if continued infectious concerns.
Original Note:
Update Note
Progress Note Update
Seen and examined with HAROLDO Barbosa and HAROLDO Camargo. See full consultation note. 73-year-old male with extensive medical history including chronic tobacco use, COPD, alcohol use, history of hepatitis C/cirrhosis status post orthotopic liver transplant
(on immunosuppression), history of endovascular aneurysm repair in 2004. He presented to the hospital with fever/chills. He notes having abdominal pain as well. He is been here for about 5 days. Noted worsened abdominal pain yesterday and today.
Blood cultures growing out Pseudomonas. No nausea/vomiting/associated symptoms except that he notes he had one-time diarrhea.
On exam/he is awake and alert. Head is normocephalic and atraumatic. Eyes are anicteric. Neck is soft without jugular venous distention. Breathing is unlabored. Abdomen is soft, obese, tender in the midline to deep palpation overlying the
aorta. No peritoneal signs. Lower extremity with 2+ femoral pulses, and 2+ DP pulses once edema milked out.
CT scan reviewed, and CT scan from 5 days also reviewed in comparison.
Plan/ Significant concern for infected aortic endograft. I am concerned that it seeded and he has Pseudomonas in the bloodstream. Significant risk for worsening infection. In the interval CT scans, the aneurysm sac has enlarged, thickened,
inflammatory changes around it. This is over the course of 5 days. This suggest that his aorta was seated (if it was not the primary infectious source, but that seems less likely given that the first CT scan did not show any significant findings).
Based on all this, would recommend endograft explantation. Revascularization options would be axillary bifemoral bypass versus in situ repair with rifampin soaked graft. Discussed procedures with him. Discussed extensively that he is very high
risk patient, and this is high risk surgery. Discussed therefore risks including but not limited to , bleeding, infections, prolonged intubation, pulmonary complications, cardiac complication/SD, bowel injury or bowel ischemia resulting in
need for ostomy or bowel resections, renal failure requiring hemodialysis, pelvic and lower extremity ischemia, recurrent infection/recurrent graft infections. He understands all wishes to proceed. Will schedule him urgently for aortic stent graft
explantation with in situ repair, possible axillary bifemoral bypass today.
[2024-05-01] MEDS: BACTROBAN 2% OINTMENT 1 APPLIC NASAL (14:22)
[2024-05-01 14:26] LABS: APTT 36.2 Sec (23.4-35.0); INR 1.81; PT 21.5 Sec (11.4-14.6)
[2024-05-01] MEDS: PERIDEX 0.12% ORAL RINSE 15 ML PO (14:40)
--- NOTE | 2024-05-01 14:43 | PTCARENOTE ---
Report given to Starr RANDHAWA prior to pt being transferred to the OR. Vascular OR nurses transferred pt to [facility] OR via stretcher.
[2024-05-01 16:26] LABS: B.E. - POC -4.1 mmol/L; Glucose - POC 226 mg/dl (70-99); HCO3 - POC 21 mmol/L (21-28); Hematocrit - POC 43 % PCV (42-52); Hemodilution- POC Yes; Hemoglobin Calculated - POC 14.6; Ionized Calcium - POC 1.24 mmol/L (1.15-1.33); Lactate - POC 0.69 mmol/L (0.36-0.75); O2 Saturation %Calculated-POC 98.2 % (94-98); PCO2 - POC 40 mmHg (35-48); PO2 - POC 114 mmHg (83-108); Potassium - POC 4.3 mmol/L (3.5-5.1); Sodium - POC 137 mmol/L (136-145); Specimen Type - POC Arterial; pH - POC 7.34 (7.35-7.45)
[2024-05-01 17:56] LABS: B.E. - POC -5.2 mmol/L; Glucose - POC 226 mg/dl (70-99); HCO3 - POC 21 mmol/L (21-28); Hematocrit - POC 30 % PCV (42-52); Hemodilution- POC Yes; Hemoglobin Calculated - POC 10.1; Ionized Calcium - POC 1.17 mmol/L (1.15-1.33); Lactate - POC 0.63 mmol/L (0.36-0.75); O2 Saturation %Calculated-POC 99.1 % (94-98); PCO2 - POC 40 mmHg (35-48); PO2 - POC 149 mmHg (83-108); Potassium - POC 4.1 mmol/L (3.5-5.1); Sodium - POC 137 mmol/L (136-145); Specimen Type - POC Arterial; pH - POC 7.32 (7.35-7.45)
[2024-05-01 20:41] LABS: B.E. - POC -9.1 mmol/L; Glucose - POC 245 mg/dl (70-99); HCO3 - POC 18 mmol/L (21-28); Hematocrit - POC 29 % PCV (42-52); Hemodilution- POC Yes; Hemoglobin Calculated - POC 9.9; Ionized Calcium - POC 1.43 mmol/L (1.15-1.33); Lactate - POC 1.23 mmol/L (0.36-0.75); O2 Saturation %Calculated-POC 99.7 % (94-98); PCO2 - POC 43 mmHg (35-48); PO2 - POC 235 mmHg (83-108); Potassium - POC 4.4 mmol/L (3.5-5.1); Sodium - POC 136 mmol/L (136-145); Specimen Type - POC Arterial; pH - POC 7.23 (7.35-7.45)
[2024-05-01 21:14] LABS: B.E. - POC -5.8 mmol/L; Glucose - POC 237 mg/dl (70-99); HCO3 - POC 20 mmol/L (21-28); Hematocrit - POC 27 % PCV (42-52); Hemodilution- POC Yes; Hemoglobin Calculated - POC 9.3; Ionized Calcium - POC 1.18 mmol/L (1.15-1.33); Lactate - POC 1.53 mmol/L (0.36-0.75); O2 Saturation %Calculated-POC 99.7 % (94-98); PCO2 - POC 42 mmHg (35-48); PO2 - POC 218 mmHg (83-108); Potassium - POC 4.4 mmol/L (3.5-5.1); Sodium - POC 138 mmol/L (136-145); Specimen Type - POC Arterial
[2024-05-01] MEDS: ADVAIR HFA 45/21 MCG INHALER INH (21:18)
[2024-05-01 21:58] LABS: B.E. - POC -6.6 mmol/L; Glucose - POC 249 mg/dl (70-99); HCO3 - POC 20 mmol/L (21-28); Hematocrit - POC 29 % PCV (42-52); Hemodilution- POC Yes; Hemoglobin Calculated - POC 9.8; Ionized Calcium - POC 1.19 mmol/L (1.15-1.33); Lactate - POC 1.53 mmol/L (0.36-0.75); O2 Saturation %Calculated-POC 99.5 % (94-98); PCO2 - POC 44 mmHg (35-48); PO2 - POC 195 mmHg (83-108); Potassium - POC 4.6 mmol/L (3.5-5.1); Sodium - POC 140 mmol/L (136-145); Specimen Type - POC Arterial; pH - POC 7.27 (7.35-7.45)
--- NOTE | 2024-05-01 22:24 | OR.RPT ---
Addendum entered and electronically signed by Willis Brannon MD 05/09/24 13:52:
The debridement of the retroperitoneum referred to below indicates sharp debridement with Metzenbaum scissor of any involved aortic tissue, and some retroperitoneal fatty tissue. In addition to sharp excisional debridement, the aortic sac fluid and
tissue was manually removed.
Original Note:
Operative Report
Operative Report
PROCEDURE DATE: 05/01/2024
Preoperative diagnosis: Aortic endograft infection.
Postoperative diagnosis: Same
Procedure:
1. Right axillary bifemoral artery bypass with 8 mm ringed Erie Propaten graft.
2. 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
Surgeon: Clovis
Co-surgeon: Rolan (required for surgery due to complexity, multiple sites, lack of assistance otherwise).
Accounting Supervisor: None
Complications: None
Anesthesia: General
Indications for procedure:
Patient with fever/chills, positive blood cultures with Pseudomonas, worsening abdominal pain. Short interval CT scan follow-up demonstrated enlargement of aortic aneurysm sac with concern for infected aorta/aortic thrombus. Presence of endograft.
Concern for infected endograft. With/benefits/alternatives of explant of endograft with revascularization all fully discussed. Patient understood all wished to proceed.
Description of procedure:
Patient was identified brought to the operating room placed on the table in supine position. After the adequate administration of anesthesia and the placement of invasive anesthetic lines and catheters, he was prepped and draped in the standard
surgical fashion. A standard preoperative timeout was undertaken and everybody was in agreement the plan. Concomitant incisions were made in the vicinity of the right axillary artery and bilateral groins. The axillary incision was made about 1
fingerbreadth inferior to the mid to distal third of the clavicle. This was carried through the skin and subcutaneous tissue and then through the clavipectoral fascia. Self-retaining retractors were applied. The The thoroacromial artery was
identified and this was followed down to the main axillary artery. The thoracoacromial branch was ligated between silk ties and divided. Proximal and distal circumferential control of the axillary artery was obtained. The artery was noted to be
soft and pulsatile.
Bilateral oblique groin incisions were made that were carried through skin subcutaneous tissue. We dissected down to the level of the inguinal ligament. The common femoral arteries were identified as the emergency room underneath inguinal
ligament. Bilaterally there were high femoral bifurcations. Careful dissection was undertaken to gain control of the common femoral artery, profunda, SFA proximally bilaterally. The arteries bilaterally were relatively soft and pulsatile. Mild
amounts of plaque were noted. Circumferential control was gained of the bilateral common femoral/SFA and profundus. Vesseloops were passed around them.
At this point via a counterincision on the right chest wall, a Erie Propaten axillobifemoral bypass graft was tunneled from the axillary incision site to both groin incision sites. Care was taken to avoid any kinking or twisting. Of note the graft
tunneled deep to the pectoralis minor traveling out slightly laterally before coursed down so as to avoid any undue tension on the anastomosis. At this point the patient was given 8000 units of intravenous heparin. Once this had circulated, the
axillary artery was clamped proximally distally. Arteriotomy was made with an 11 blade and extended using a Malone scissor. The graft was beveled and an end-to-side anastomosis was created between the graft and the axillary artery using running
Erie CV 6 suture. The suture line was completed and tied down but the chilkat arteries were backbled prior to releasing the clamps. The graft was then clamped and the chilkat artery clamps were released. Excellent pulsatile flow was noted in the
axillary artery and into the graft. Two 6-0 Prolene [id number] sutures were applied to the suture line bleeding sites. Otherwise hemostasis was achieved. At this point to the femoral anastomoses were fashioned. Initially with the right side
and then the left. For both anastomoses, the femoral branches were clamped, and arteriotomies were made on the common femoral artery holding onto the superficial femoral artery. The grafts were trimmed and beveled and end-to-side anastomoses were
performed using running Erie CV 6 sutures. Prior to completing and tying down the suture lines chilkat arteries were backbled and graft flow was flushed. Sutures were then completed and tied down after irrigating heparinized saline. As noted this
was completed on the right side first and then on the left side. Upon completion graft clamps were released and flow was reestablished. Excellent pulsatile flow was noted in bilateral groins. At this point were very satisfied. Hemostasis was
achieved in both groins as well. Upon confirmation of hemostasis in the groin incisions in the axillary incision, all sites were irrigated. We then closed in layers using Vicryl suture followed by skin clips. Sterile dressings were then applied.
Protamine was given to reverse the heparin.
Next we broke down our drapes and repositioned the patient in a right lateral decubitus position (left side up). A beanbag was inflated to help position the patient, an axillary roll was placed and appropriate padding was placed at all pressure
points. The patient was then prepped and draped again in the standard surgical fashion. A retroperitoneal incision was fashioned beginning in the ninth interspace, and extending towards the midline umbilicus. This was carried through the skin and
subcutaneous tissue with electrocautery and then through the external oblique and internal oblique muscle layers and through the transversalis fascia. The peritoneum was then identified and carefully swept off the abdominal wall musculature. More
laterally the incision was extended over the rib and the rib was dissected on either side and then divided more proximally in order to facilitate exposure. Of note the pleural space was entered, but there is no injury to the lung. At this point we
continue to sweep the peritoneum from laterally to medially (left to right). This was done through the entirety of the abdominal cavity including up to the level of the diaphragm thereby sweeping the more proximal organs such as the spleen and
pancreas along with the remainder of the organs all medially. The psoas muscle was identified as was the aorta then. The aorta was noted to be heavily inflamed with inflamed fatty tissue overlying it. We placed self-retaining retractors at this
point (Omni retractor system). We then began dissecting over the aorta the retroperitoneum. There is heavy retroperitoneal fat that was inflamed that was all very oozy. We use electrocautery as much as possible to limit the oozing. The ascending
lumbar vein was ligated and divided, but there was a little bit of bleeding from it before we are able to isolate it. Then we were able to control it and ligated and divided. We then continued to dissect on the retroperitoneum identifying the
aortic aneurysm sac. We continued to dissect cephalad. Finally we were able to identify the left renal artery which was heavily calcified. Careful circumferential dissection was undertaken to pass a vessel loop around it. We then continued our
cephalad dissection and were able to palpate the SMA which came off at almost the same level of the left renal artery. More cephalad we are able to palpate the celiac artery, and then created a clamp zone just above there. An aortic clamp was
positioned but not clamped at that position. An infrarenal clamp zone was also fashioned so that we could move clamped down if possible. We continued dissection down to the level of the iliac arteries. These were heavily frozen and scar tissue.
We were able to position a clamp at the left renal artery, and at the origin of the right renal artery that was heavily scarred. But we are able to get enough around it to position a clamp. At this point once we had proximal and distal exposure,
we clamped the iliac arteries (common iliac arteries) bilaterally. We then clamped the supraceliac aorta briefly. We then quickly an aortotomy with the electrocautery in the infrarenal aorta and then extended it with a heavy scissor. We
immediately encountered purulent drainage. This was sent for culture. Now we teed off our aortotomy in the infrarenal aorta. I then grasped the graft and was able to pull it off the wall and then pull it out. Once we had the graft out we then
quickly clamped the infrarenal aorta (had positioned a clamp there) and released our supraceliac clamp. Therefore the supraceliac clamp time was only a couple minutes. Next we clamped the endograft limbs to curb the backbleeding from the iliacs.
We now transiently released the iliac clamps while pulling out the iliac limbs. And then we quickly reclamped the iliac (common iliac) arteries. As such we are able to remove the entirety of the graft. At this point we had hemostatic control of
the aorta and had removed the graft. Therefore we now oversewed the proximal aortic stump with a 2 layer running 3-0 Prolene suture. We initially performed this and some of the tissue was a little bit weak and when we released a clamp there was
bleeding. We therefore then moved our infrarenal clamp slightly higher but still in the infrarenal position. We then repeated our 2 layer 3-0 Prolene running vascular closure. We tied down our suture line and then released our clamp. At this
point hemostasis was noted. We now turned our attention distally. Similarly the aortic bifurcation itself was sutured closed with a 2 layer vascular closure using a running 3-0 Prolene suture. Upon release of our iliac clamps hemostasis was
noted. We were able to palpate iliac artery pulses in the iliac arteries beyond our stump closure. We then irrigated copiously. We debrided the aortic wall. We achieved full hemostasis. A 24 Pakistani chest tube was brought out through a separate
stab incision and positioned in the pleural space. Was secured to the skin with a heavy silk suture. We then closed our incision with 0 Vicryl running layer for the internal oblique/muscular layer in the chest. #1 running PDS was then used to
close the external oblique layer. Skin clips were applied. Dressings were applied. The patient tolerated the procedure well. Upon completion he had dopplerable DP signals in both feet. He will be taken to the ICU in critical condition remaining
intubated. All sponge, needle, instrument counts were correct at the end of the case.
[2024-05-01 22:57] VITALS: BP 111/79
[2024-05-01 23:00] VITALS: BP 109/81
--- NOTE | 2024-05-01 23:00 | PTCARENOTE ---
Resumed care of pt at approx. 2300. Received pt via bed from vascular team. Surgical dressings are all C/D/I, see wound documentation. Neurovascular checks performed at bedside, B/L PT and DP are present via doppler. B/L radial pulses present via
palpation. Pt is intubated and is tolerating vent settings satting at 98% pulse ox. On auscultation pt's lungs sound diminished TO otherwise clear. Chest wall connected to wall suction, no tidaling noted in water chamber. Pt has cordis/swan cath in
place and connected to transducer.
[2024-05-01 23:15] VITALS: BP 116/88
[2024-05-01 23:42] LABS: Hematocrit 28.3 % (39.0-52.0); Hemoglobin 9.9 g/dL (13.0-18.0); Mean Corpuscular Hgb 31.3 pg (27.0-31.0); Mean Corpuscular Volume 89.6 fL (80.0-94.0); Mean Platelet Volume 11.9 fL (7.4-10.4); Platelet Count 172 10^3/uL (130-400); Red Blood Cell Count 3.16 10^6/uL (4.70-6.10); Red Cell Dist. Width 14.7 % (11.5-14.5); White Blood Cell Count 25.1 10^3/uL (4.8-10.8)
[2024-05-01 23:43] LABS: INR 1.67; PT 20.2 Sec (11.4-14.6)
[2024-05-01 23:45] VITALS: BP 123/89
[2024-05-01 23:49] LABS: Lactic Acid 1.2 mmol/L (0.7-2.0)
[2024-05-01 23:50] LABS: Glucose - Point of Care 223 mg/dl (70-99)
[2024-05-01 23:52] LABS: ALT (SGPT) 18 U/L (0-50); AST (SGOT) 24 U/L (17-59); Albumin 1.9 g/dl (3.5-5.0); Alkaline Phosphatase 126 U/L (38-126); Blood Urea Nitrogen 18 mg/dl (9-20); Calcium 8.4 mg/dl (8.4-10.2); Carbon Dioxide 20 mmol/L (22-30); Chloride 106 mmol/L (98-107); Direct Bilirubin 1.2 mg/dl (0.0-0.4); Estimated Creatinine Clearance 79 ml/min; Glucose 195 mg/dl (70-99); Potassium 4.4 mmol/L (3.5-5.1); Sodium 131 mmol/L (135-145); Total Bilirubin 2.9 mg/dl (0.2-1.3); Total Protein 3.8 g/dl (6.3-8.2); eGFR > 60.00
[2024-05-02] VITALS (40 sets, daily range): BP systolic 75–132; BP diastolic 39–90; BMI 32.3
[2024-05-02 00:07] LABS: B.E. -5.3 mmol/L; PCO2 37 mmHg (35-48); PO2 121 mmHg (83-108); Potassium 4.5 mMOL/L (3.5-5.1); Sodium 132 mMOL/L (136-145); pH 7.34 (7.35-7.45)
[2024-05-02 00:08] LABS: O2 Therapy 40%
[2024-05-02 00:45] LABS: Glucose - Point of Care 169 mg/dl (70-99)
[2024-05-02 00:47] LABS: ALT (SGPT) 18 U/L (0-50); AST (SGOT) 24 U/L (17-59); Albumin 1.9 g/dl (3.5-5.0); Alkaline Phosphatase 123 U/L (38-126); Blood Urea Nitrogen 17 mg/dl (9-20); Calcium 8.4 mg/dl (8.4-10.2); Carbon Dioxide 19 mmol/L (22-30); Chloride 107 mmol/L (98-107); Estimated Creatinine Clearance 79 ml/min; Glucose 189 mg/dl (70-99); Magnesium 1.7 mg/dl (1.6-2.3); Phosphorus 4.1 mg/dl (2.5-4.5); Potassium 4.3 mmol/L (3.5-5.1); Sodium 131 mmol/L (135-145); Total Bilirubin 3.1 mg/dl (0.2-1.3); Total Protein 3.8 g/dl (6.3-8.2); eGFR > 60.00
[2024-05-02] MEDS: NOVOLOG FLEXPEN-LOW RESISTANCE SC (01:25)
[2024-05-02] MEDS: NSS IV ×3 (01:28→06:03)
[2024-05-02] MEDS: ZOSYN IV ×2 (01:28→01:29)
[2024-05-02] MEDS: PROGRAF PO ×2 (01:28→12:00)
[2024-05-02] MEDS: MAG-TAB SR PO ×3 (01:28→21:02)
[2024-05-02 01:43] LABS: Glucose - Point of Care 178 mg/dl (70-99)
[2024-05-02] MEDS: SUBLIMAZE 50 MCG IV ×6 (02:23→11:53)
[2024-05-02] MEDS: MAGNESIUM SULFATE 102 GRAMS IV (02:35)
[2024-05-02 02:46] LABS: Glucose - Point of Care 209 mg/dl (70-99)
[2024-05-02] MEDS: SUBLIMAZE 100 IV (03:09)
[2024-05-02 03:44] LABS: Glucose - Point of Care 171 mg/dl (70-99)
[2024-05-02] MEDS: LEVOPHED 250 IV ×2 (04:21→09:19)
[2024-05-02] MEDS: ZOSYN 100 IV ×4 (04:39→22:58)
[2024-05-02 04:43] LABS: Glucose - Point of Care 191 mg/dl (70-99)
--- NOTE | 2024-05-02 05:00 | PTCARENOTE ---
Levo gtt titrated up to 12 mcg/min per protocol for hypotension.
[2024-05-02 05:41] LABS: APTT 31.9 Sec (23.4-35.0)
[2024-05-02 05:43] LABS: Lactic Acid 2.3 mmol/L (0.7-2.0)
[2024-05-02 05:45] LABS: Glucose - Point of Care 159 mg/dl (70-99)
[2024-05-02 05:45] LABS: Hematocrit 29.3 % (39.0-52.0); Hemoglobin 10.5 g/dL (13.0-18.0); Mean Corp Hgb Conc. 35.8 g/dL (33.0-37.0); Mean Corpuscular Hgb 32.1 pg (27.0-31.0); Mean Corpuscular Volume 89.6 fL (80.0-94.0); Mean Platelet Volume 12.7 fL (7.4-10.4); Platelet Count 162 10^3/uL (130-400); Red Blood Cell Count 3.27 10^6/uL (4.70-6.10); Red Cell Dist. Width 15.2 % (11.5-14.5); White Blood Cell Count 49.1 10^3/uL (4.8-10.8)
[2024-05-02 05:49] LABS: ALT (SGPT) 18 U/L (0-50); AST (SGOT) 28 U/L (17-59); Alkaline Phosphatase 114 U/L (38-126); Blood Urea Nitrogen 20 mg/dl (9-20); Calcium 8.1 mg/dl (8.4-10.2); Carbon Dioxide 17 mmol/L (22-30); Chloride 108 mmol/L (98-107); Estimated Creatinine Clearance 65 ml/min; Glucose 155 mg/dl (70-99); Magnesium 1.9 mg/dl (1.6-2.3); Phosphorus 4.5 mg/dl (2.5-4.5); Potassium 4.6 mmol/L (3.5-5.1); Sodium 133 mmol/L (135-145); Total Bilirubin 3.4 mg/dl (0.2-1.3); eGFR > 60.00
[2024-05-02] MEDS: LR 1000 IV (06:15)
--- NOTE | 2024-05-02 06:15 | PTCARENOTE ---
UO decreased to about 8-10mL/Hr over the last few hours. MOTHER SUPERIOR notified, 1L bolus of LR administered by this RN.
[2024-05-02] MEDS: ADVAIR HFA 45/21 MCG INHALER 2 PUFF INH ×2 (07:32→20:14)
[2024-05-02] MEDS: SPIRIVA RESPIMAT 2.5 MCG INH (07:33)
--- NOTE | 2024-05-02 07:40 | PN.CDI ---
CDI
- -
CDI:
Physician Documentation Request
Admit Date: 04/28/24 08:00
Dear Doctor Clovis,
Please review the following and provide your response in the progress notes.
Clinical Indicators:
- 05/01 Operative Report indicates debridement without further specification
- 'wide debridement of retroperitoneum'
- 'We debrided the aortic wall'
Could you please provide, in the progress notes, further clarification regarding the debridement.
Please specify the type of debridement performed:
1. Excisional Debridement - defined as removal by excision of devitalized tissue, necrosis or slough
2. Non-excisional debridement - defined as removal of devitalized tissue, necrosis or slough by such methods as irrigation, brushing, scrubbing or washing.
If the debridement was excisional, please also include:
1. Type of instrument used (#11 blade, #15 blade etc.)
2. What was excised (necrotic tissue, gangrenous tissue, slough etc.)
For excisional or non-excisional, please also include:
1. Depth of debridement (skin, subcutaneous tissue, fascia, muscle, bone etc)
2. Size and appearance of the wound (L, W, D, color of wound, drainage)
Use of terms such as suspected, likely, concern for, or probable (associated with a specific diagnosis that is being evaluated, monitored, or treated as if it exists) are acceptable and can be coded in the inpatient setting, when documented at the
time of discharge.
Thank you,
Iglesia Fuentes RN
CDI Specialist
Please use your independent medical judgment in providing your response.
--- NOTE | 2024-05-02 07:49 | PTCARENOTE ---
Dr Brannon in to see pt and reviewed events of evening Wants additional 500ml saline bolus with repeat lactic when complete and nss at 200ml/hr continuously. Will address ivf again once lactic resulted. No miralax via ngt except antiregection
medications currently
--- NOTE | 2024-05-02 07:54 | PN.DE.MGMTRT ---
Insulin Management
- -
05/02/2024: Diabetes Management Consult
73 year old male with extensive PMH including: Paroxysmal A-Fib, CAD, PVCs, alcoholic cirrhosis, hepatitis C s/p liver transplant in 2006 (on immunosuppression), multiple bile duct stents, AAA s/p repair in 2004, HTN, HLD, COPD chronic tobacco use
and T2DM.
Pt presented to the hospital with fever/chills, decreased oral intake and diarrhea. Pt has been here for ~6 days. Was noted for worsening abdominal pain.
CT A/P--> enteritis/ileus. Admission blood cultures + Pseudomonas. CT angio showed significant concern for infected aortic endograft and questionable distal common bile duct stone vs mass vs sludge. Pt underwent Right axillary bifemoral artery
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
Pt is critically ill, intubated and sedated, unable to provide hx or discuss diabetes care plan, no family @ bedside, information obtained from chart review.
Of note, he was taking Metformin 500 mg daily. A1C 7.5%, Cr 1.1, eGFR >60
Pt was initiated on critical care glycemic protocol target glucose range 140 to 180mg/dL.
Remains NPO. Glucose range 171 to 209, requiring 1.7 to 3 units of insulin/hr
Will cont continuous insulin infusion for now. Discussed with ICU team and nurse.
Diabetes History
- -
Type of Diabetes: 2
Pre-Admission Diabetes Regimen
05/01/24 05/01/24 05/01/24
07:14 16:39 23:18
Creatinine 1.0 Cancelled 0.9
05/01/24 05/02/24
23:58 05:12
Creatinine 0.9 1.1
Lab Results
Hemoglobin A1c 7.5 % (4.0-5.6) H 04/29/24 06:51
Insulin Pump Settings
IP Diabetes Regimen
05/01/24 05/01/24 05/01/24
07:14 10:53 16:39
Glucose 216 H Cancelled
POC Glucose 226 H
05/01/24 05/01/24 05/01/24
23:18 23:37 23:58
Glucose 195 H 189 H
POC Glucose 223 H
05/02/24 05/02/24 05/02/24
00:33 01:32 02:34
Glucose
POC Glucose 169 H 178 H 209 H
05/02/24 05/02/24 05/02/24
03:31 04:31 05:12
Glucose 155 H
POC Glucose 171 H 191 H
05/02/24
05:34
Glucose
POC Glucose 159 H
Meal type: Lunch
Patient Education
[2024-05-02] MEDS: NSS 1000 IV ×3 (07:57→17:40)
[2024-05-02] MEDS: PROTONIX IV 40 MG IV (07:58)
[2024-05-02] MEDS: NSS (PRESERVATIVE FREE) 10 ML IV (07:59)
[2024-05-02] MEDS: HEPARIN 5000 UNITS SC ×2 (07:59→16:13)
--- NOTE | 2024-05-02 08:07 | CON.INTV ---
Consultation
Consultation Request
Date/Time Consultation Requested: 05/01/2024 - 163
Date/Time Consultation Performed: 05/02/2024 - 754
Requesting Provider: GUILLERMO Valera
Performing Provider: Dr. Morin
Reason for Consultation: s/p bifem bypass and explantation of infected endograft
Medical History
-
Chief Complaint: Fever, runny nose, weight loss and reduced appetite
History of Present Illness:
73-year-old male with a past medical history of alcoholic cirrhosis with hepatitis C virus s/p liver transplantation on tacrolimus ([facility] � 2006), AAA s/p repair ([facility] � 2005), history of hepatitis, CAD with history of WI (2017) s/p coronary
stent, hypertension, COVID-19 (April 2020), paroxysmal A-fib on Eliquis and a reported history of COPD who presents with fever, runny nose, diarrhea, and reduced appetite. He was feeling unwell for 4 days prior to arrival. He has also had a mild
cough with some shortness of breath. He was diagnosed with a suspected viral enteritis after initial CT abdomen/pelvis on 04/25/2024 showed slightly prominent fluid-filled small bowel loops in the lower abdomen without perforation or abscess seen.
Of note, initial CXR showed no evidence of pneumonia. He was initially admitted to [facility] for further care. Blood cultures became positive due to Pseudomonas. He was initially started on antibiotics on 04/26/2024, and continued with his
tacrolimus. ID consulted on 04/29, and on 04/30 a CTA abdomen/pelvis was performed showing acute aortitis likely related to the aortobiiliac endograft. Given the concern for graft infection, patient was urgently brought to the OR, and on 05/01/[address] Brannon performed a right axillary bifemoral artery bypass as well as explantation of the entirety of his infected aortic endograft via retroperitoneal incision with oversewing of aortic and iliac systems and wide debridement of his retroperitoneum.
There were no immediate complications, and the patient was transferred to the ICU on the ventilator with temperature inspector services consulted for additional management/recommendations. As per the RN, EBL was about 1200 cc.
Patient seen and evaluate this morning. Currently intubated on CMV at 14/500/5/40% with PIP 16 cm water, VTE 513 cc and breathing at 14 breaths/min. Heart rate 72, BP via A-line: 108/50, PAP 24/17, and saturating 99%. BP via NIBP 90/66.
Currently on fentanyl at 100 mcg/h, Levophed at 4 mcg/min, insulin at 3 units/h and propofol is at 10. Also on NS 0.9% at 200 cc/hour. Left-sided chest tube in place, at -20 cmH2O suction with no airleak.
PMHx: History of alcoholic cirrhosis + HCV s/p liver transplant on tacrolimus, history of hepatitis, history of WI (2017) s/p coronary stent, history of CAD, hypertension, history of COVID-19 (04/2020), paroxysmal A-fib on Eliquis, history of PVCs,
reported history of COPD
PSHx: Left knee arthroscopy, liver transplant (2006 - [facility]), coronary stent, AAA repair ([facility] � 2005), history of multiple bile duct stents
Past Medical History
Past Medical History: Other (Above as per HPI)
Past Surgical History: Other (Above as per HPI)
Social History
Tobacco: Former Smoker
Alcohol: Occasional
Drug: None
Family History
Family History: Other (Brother: Blood clot in leg; Father: Stroke)
Allergies / Home Medications
Allergies
Allergy/AdvReac Type Severity Reaction Status Date / Time
No Known Allergies Allergy Verified 04/25/24 08:53
Home Medications
�Medication �Instructions �Recorded �Confirmed �Last Taken �Type
calcium 500 mg (as 500 mg PO BID 11/30/13 04/25/24 04/25/24 History
carbonate)-vitamin D3 10 mcg (400
unit) tablet (Calcium 500 + D)
tiotropium bromide 2.5 2 puff inhalation R DAILY 11/28/18 04/25/24 04/25/24 History
mcg/actuation mist for inhalation
(Spiriva Respimat)
apixaban 5 mg tablet (Eliquis) 5 mg PO BID #60 tabs 11/30/18 04/25/24 04/25/24 Rx
clopidogrel 75 mg tablet 75 mg PO DAILY #30 tabs 11/30/18 04/25/24 04/25/24 Rx
pantoprazole 40 mg tablet,delayed 40 mg PO DAILY #30 tabs 11/30/18 04/25/24 04/25/24 Rx
release
albuterol sulfate 90 mcg/actuation 2 puff inhalation R Q6HPRN PRN sob 04/25/24 04/25/24 Unknown History
aerosol inhaler
amlodipine 2.5 mg tablet 2.5 mg PO DAILY 04/25/24 04/25/24 History
atorvastatin 80 mg tablet 40 mg PO DAILY 04/25/24 04/25/24 04/25/24 History
fluticasone 100 mcg-salmeterol 50 2 inh inhalation R BID 04/25/24 04/25/24 04/25/24 History
mcg/dose blistr powdr for
inhalation
furosemide 40 mg tablet 40 mg PO DAILY 04/25/24 04/25/24 Unknown History
lisinopril 10 mg tablet 10 mg PO DAILY 04/25/24 04/25/24 History
magnesium oxide 420 mg tablet 420 mg PO BID 04/25/24 04/25/24 04/25/24 History
metformin 500 mg tablet 500 mg PO DAILY 04/25/24 04/25/24 History
metoprolol succinate 100 mg 150 mg PO DAILY 04/25/24 04/25/24 04/25/24 History
tablet,extended release 24 hr
pregabalin 200 mg capsule 200 mg PO BID 04/25/24 04/25/24 04/25/24 History
tacrolimus 0.5 mg capsule, 1.5 mg PO BID 04/25/24 04/25/24 History
immediate-release
therapeutic multivitamin 1 tab PO DAILY 04/25/24 04/25/24 04/25/24 History
Review of Systems
-
Unable to Obtain full review of systems at this time due to: Patient Intubation
Vitals / Labs / Diagnostic Testing
Vital Signs
Temp Pulse Resp BP Pulse Ox
99.1 F 69 13 100/70 99
05/02/24 06:12 05/02/24 08:03 05/02/24 08:03 05/02/24 08:03 05/02/24 08:03
Lab Data
05/02/24 05:12
Laboratory Results
05/01/24 05/01/24 05/01/24
13:59 16:39 23:18
PT 21.5 H Cancelled 20.2 H
INR 1.81 Cancelled 1.67
APTT 36.2 H Cancelled
pH
pCO2
pO2
HCO3
O2 Delivery Level
05/02/24 05/02/24 05/02/24
00:00 05:12 06:00
PT Cancelled
INR Cancelled
APTT 31.9
pH 7.34 L
pCO2 37
pO2 121 H
HCO3 20.0 L
O2 Delivery Level 40%
Microbiology
04/30/24 09:18 Blood/Venous Blood Culture - Preliminary
No Growth in 48 hours- Final report to follow
04/30/24 08:50 Blood/Venous Blood Culture - Preliminary
No Growth in 24 hours- Final report to follow
04/29/24 06:51 Blood/Venous Blood Culture - Preliminary
Positive culture in progress
04/29/24 06:51 Blood/Venous Gram Stain - Preliminary
04/28/24 13:34 Blood/Venous Blood Culture - Preliminary
Pseudomonas aeruginosa
04/28/24 13:34 Blood/Venous Gram Stain - Preliminary
04/25/24 15:59 Blood/Venous Blood Culture - Preliminary
Pseudomonas aeruginosa
04/25/24 15:59 Blood/Venous Gram Stain - Preliminary
04/25/24 15:59 Blood/Venous Blood Culture - Preliminary
Pseudomonas aeruginosa
04/25/24 15:59 Blood/Venous Gram Stain - Preliminary
Diagnostic Testing:
Physical Exam
-
HEENT: Normocephalic, Anicteric and Other (ETT in place)
Cardiovascular: S1/S2, Rub (negative) and Peripheral Edema (+3 lower extremity pitting edema bilaterally)
Respiratory: Wheeze (negative), Rales (negative), Rhonchi (negative), Non-Labored Respirations and Other (Mechanical breath sounds heard bilaterally)
GI: Soft, Distended (Abdominal obesity), Non Tender and Normal Bowel Sounds
Neurology: Tremors (negative) and Other (Sedated)
Skin: Warm and Dry
General: Respiratory Distress (negative), Comfortable, Fever (negative) and Chills (negative)
Assessment
-
Assessment: 73-year-old male with a past medical history of alcoholic cirrhosis with hepatitis C virus s/p liver transplantation on tacrolimus ([facility] � 2006), AAA s/p repair ([facility] � 2005), history of hepatitis, CAD with history of WI (2017)
s/p coronary stent, hypertension, COVID-19 (April 2020), paroxysmal A-fib on Eliquis and a reported history of COPD who presents with fever, runny nose, diarrhea, and reduced appetite. He was feeling unwell for 4 days prior to arrival. He has also
had a mild cough with some shortness of breath. He was diagnosed with a suspected viral enteritis after initial CT abdomen/pelvis on 04/25/2024 showed slightly prominent fluid-filled small bowel loops in the lower abdomen without perforation or
abscess seen. Of note, initial CXR showed no evidence of pneumonia. He was initially admitted to [facility] for further care. Blood cultures became positive due to Pseudomonas. He was initially started on antibiotics on 04/26/2024, and continued with
his tacrolimus. ID consulted on 04/29, and on 04/30 a CTA abdomen/pelvis was performed showing acute aortitis likely related to the aortobiiliac endograft. Given the concern for graft infection, patient was urgently brought to the OR, and on
05/01/2024 Dr. Branonn performed a right axillary bifemoral artery bypass as well as explantation of the entirety of his infected aortic endograft via retroperitoneal incision with oversewing of aortic and iliac systems and wide debridement of his
retroperitoneum. There were no immediate complications, and the patient was transferred to the ICU on the ventilator with temperature inspector services consulted for additional management/recommendations. As per the RN, EBL was about 1200 cc.
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
history of PVCs, reported history of COPD
Impression:
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
#Circulatory shock now on vasopressors � likely sedation related as he was not on pressors prior to intubation
#Acute respiratory failure with hypoxia - remained intubated post-operatively likely due to the timing of the procedure that occurred very late in the evening on 05/01/2024
#Ventilatory dependent respiratory failure
#Leukocytosis with concern for leukemoid reaction
#Acute on chronic anemia due to operation above
#Acute thrombocytopenia due to operation above
#Metabolic acidosis with preserved anion gap
#Hyperbilirubinemia (chronic)
#Hypoalbuminemia
#DM type II (uncontrolled � HbA1c 7.5 on 04/29/2024) complicated by hyperglycemia
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
#History of alcoholic cirrhosis + HSV s/p liver transplantation on tacrolimus ([facility] � 2006)
#CAD with history of WI (2017) s/p coronary stent
#Hypertension
#History of COVID-19 (April 2020)
#Paroxysmal A-fib on Eliquis
#Reported history of COPD
Plan:
Postoperative surgical intensive care unit monitoring
Follow-up cultures + pathology that were collected from the OR
Continue with mechanical ventilation, and add Precedex to help with weaning as he does become severely agitated when the nurses tried to lower sedation
Patient also currently on propofol and this should be lowered as tolerated as well to prepare for an SAT/SBT
While intubated, maintain plateau pressure <30, and titrate FiO2 + PEEP to maintain SpO2 88-95%; frequent oropharyngeal + ETT suctioning as needed
Continue with aspiration precautions keeping HOB >30-45�
prn nebulized bronchodilators � not currently bronchospastic
Patient does use Spiriva + Advair at home � continue with Advair while intubated and also start nebulized Atrovent BID --> once extubated we can change atrovent to Spiriva
Pain control
Neuro and vascular checks per protocol
Maintain MAP>65
Patient currently on Levophed and this should be titrated down as tolerated while maintaining MAP goal as above
If Levophed requirements increase and are approaching 10-15 mcg/min, then vasopressin should be added
Replete electrolytes with K>4, Mg>2
Maintain euglycemia with goal BG 140-180
Continue to hold all medications except for Prograf; also no enteral nutrition as vascular surgery does not want to use the gut just yet, especially this soon after surgery
Vascular surgery following-correspondence and operative notes reviewed
Transfuse blood products as needed to keep Hb>7g/dL, and plt>50k (given post-operative status)
DVT prophylaxis: HSQ
Stress ulcer prophylaxis given that he is intubated and now on vasopressors
Early nutrition when deemed ok per vascular surgery - for now they want the pt to be NPO with no meds except his prograf
Early mobilization when feasibile
Code status: He currently is full code, however prior to this operation he was DNR/DNI. Once he is extubated, code status will need to be discussed with the patient/family to see if they want to revert back to his prior code status of DNR/DNI. For
now, continue with full code given that he is intubated in this post-operative state.
Continue with ICU level care for this critically ill patient
Critical care statement: A total of 44 minutes of critical care time was provided for this patient today. This includes management of unstable vital signs, evaluation of the patient at bedside, reviewing the patient's pertinent medical records
including radiographs, microbiology, laboratory evaluations, and discussion with primary team, consultants, pharmacy, nutrition, physical therapy, case management, charge nurse, critical care nursing, and respiratory therapy.
--- NOTE | 2024-05-02 08:08 | W.PN.VS ---
Addendum entered and electronically signed by Willis Brannon MD 05/02/24 08:49:
Seen and examined with HAROLDO Barbosa. Agree with findings as noted below. No major events overnight. Urine output slowed.
Vital signs and input/output all reviewed.
Remains intubated/sedated.
NG tube output scant.
Right upper chest wall dressing clean dry and intact. Graft tunnel site flat, no hematoma.
Chest tube to suction with no airleak. Minimal drainage.
Abdomen is soft, nondistended. Dressing is clean dry and intact. Groins are flat with dressings clean dry and intact bilaterally. No hematomas noted.
Feet warm with dopplerable DP signals.
Labs all reviewed.
Plan/ Postoperative day #1
� Appears under resuscitated. Continue fluid boluses and increased maintenance fluid rate to 200 mL/h as ordered initially. Trend lactates.
� Wean pressor as fluid resuscitation improved.
� Continue vent, as ICU team rounds this morning, can look into trying to wean vent, but would favor clearing of acidosis first.
� Hemoglobin is stable. No evidence of ongoing bleeding.
� PA pressures reasonable. Likely can discontinue [place] catheter but maintain Cordis in place
� Reasonable graft function with dopplerable DP signals bilaterally.
� Continue IV antibiotics, high risk for seeding of axillary bifemoral graft, would indefinitely continue and likely plan for long-term IV antibiotics.
� Follow-up OR cultures of aortic sac purulent fluid.
Original Note:
Today's Communication / Plan
-
Seen and assessed with Dr. Brannon
Assessment/Plan
-
POD 1 Right axillary bifemoral artery bypass with 8 mm ringed [place] Propaten graft.
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
Plan:
-500 cc bolus normal saline, followed by 200 mL/h normal saline IV fluid
-Trend lactic acid, CBC, BMP
-Strict I's and O's
-Chest x-ray this morning
-Keep n.p.o., keep NG tube, keep Vaughn catheter
-Extubation per Audio/Video Technician
-Antibiotics per ID
-Remain in ICU
Subjective Data
-
Date of Service: May 02, 2024
Patient seen at bedside this a.m. with Dr. Brannon. Patient is intubated and sedated at this time. Overnight urinary output dropped to 8 cc an hour since 3 AM. Lactic acid 2.3 this morning. Creatinine stable at this time. Currently on Levophed,
insulin drip
Objective Data
-
Vital Signs
Temp Pulse Resp BP Pulse Ox
99.1 F 72 18 91/55 99
05/02/24 06:12 05/02/24 07:34 05/02/24 07:34 05/02/24 06:12 05/02/24 07:34
Intake and Output
05/01/24 05/02/24 05/03/24
06:59 06:59 06:59
Intake Total 1290 / 1290 857.4 / 857.4
Output Total 1050 / 1050 637 / 637
Balance 240 / 240 220.4 / 220.4
Intake:
Oral fluids 840 / 840
IV fluids (Total) 250 / 250 257.4 / 257.4
Heparin 17.4 / 17.4
Levo 240.0 / 240.0
IV piggybacks 200 / 200
Blood Product Amount Infused ( 600 / 600
mL)
Fresh Frozen Plasma 24 Hours 350 / 350
Unit [id number]
Packed Rbc Leukoreduced Unit 250 / 250
[id number]
Output:
CT Output (Total) 0 / 0
Left Lateral 0 / 0
Urine, Vaughn 637 / 637
Urine, Voided 1050 / 1050
Other:
Number of approximated MODERATE 1
amounts of urine
Lab Results
05/02/24 05:12
Calcium 8.1 mg/dl (8.4-10.2) L 05/02/24 05:12
Phosphorus 4.5 mg/dl (2.5-4.5) 05/02/24 05:12
Magnesium 1.9 mg/dl (1.6-2.3) 05/02/24 05:12
Total Bilirubin 3.4 mg/dl (0.2-1.3) H 05/02/24 05:12
Direct Bilirubin 1.2 mg/dl (0.0-0.4) H 05/01/24 23:18
AST 28 U/L (17-59) 05/02/24 05:12
ALT 18 U/L (0-50) 05/02/24 05:12
Alkaline Phosphatase 114 U/L (38-126) 05/02/24 05:12
Total Protein 4.0 g/dl (6.3-8.2) L 05/02/24 05:12
Albumin 2.0 g/dl (3.5-5.0) L 05/02/24 05:12
Physical Exam
-
Intubated and sedated
No tachycardia
Abdomen soft, rotund
Chest dressing clean, dry, intact, soft, flat. Right side tunneled location no ecchymosis or swelling noted
RP dressing clean, dry, soft, flat, no drainage noted
Groin site dressings clean, dry, intact, soft, flat
Chest tube site intact
Doppler DP and PTs noted bilaterally
Palpable DP pulses
+3/4 pitting edema bilateral lower extremities
[2024-05-02 08:54] LABS: Lactic Acid 1.4 mmol/L (0.7-2.0)
[2024-05-02] MEDS: NSS 250 IV (09:19)
--- NOTE | 2024-05-02 09:50 | W.PN.HOSP.TC ---
Addendum entered and electronically signed by Aron Wilson MD 05/02/24 20:15:
Attending Addendum-
I saw and evaluated the patient. I reviewed the resident�s note and agree with findings and plan as documented in the resident�s note. Sub: transfered to ICU after aortic procedure last PM. Intubated and sedated. No BM. Full 12 point ROS reviewed
and negative except as documented Exam: Vitals reviewed in chart GEN-sedated HEENT NG tube in place/intubated heart RRR lungs clear abd distention pos BS no rebound guarding TTP epigastric. LE +3 pitting edema harris in place swan jogre present
Plan:
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
-intubated 05/01 for OR code status changed to Full
-sedated on fentanyl/propofol/precedex
-DC swan
-requiring pressor support with Levophed to maintain MAP > 65
-persistent pos blood cx- 04/25, 04/28, and 04/29 - pseudomonas
-cont zosyn #7 added cipro #1
-05/01- 1. Right axillary bifemoral artery bypass with 8 mm ringed [place] Propaten graft.
2. 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
-follow cx sent during procedure
-urine cx- NGTD
-cont NPO
-repeat blood cx - 04/30, 05/01-NGTD
-CTA A/P 04/29-
1. Aortobiiliac endograft in place with an interval increase in size of the tribe aneurysm sac around the endograft, interval increase in circumferential wall thickening of the tribe aneurysm, mild retroperitoneal inflammation, and increased
small retroperitoneal lymph nodes. The constellation of findings is suggestive of ACUTE AORTITIS which could be secondary to infection or inflammatory disease.
2. Moderate extrahepatic biliary dilatation with suggestion of an obstructing 1.3 cm intraluminal mass in the distal common bile duct. Diagnostic possibilities are (1) choledocholithiasis or (2) less likely bile duct cancer. Mild wall thickening
and hyperenhancement of the common hepatic and common bile ducts suggesting CHOLANGITIS.
-ECHO 04/30-
Normal left ventricular size and systolic function without regional wall motion abnormalities. left ventricular ejection fraction is 55 to 60%
No obvious vegetations noted
-may need GINGER if persistent bacteremia
-will need eventual ERCP for CBD stone/cholangitis- GI on board
# Constipation
- aggressive bowel regimen
- monitor for BM closely
# DM
- HBa1c 7.5
- cont insulin gtt
- cont SSI
- metformin on hold
# Metabolic Acidosis
- start bicarb gtt
- monitor closely
# Hyponatremia
- hypovolemic
- cont IVF
- repeat BMP in am
# Acute kidney injury
-resolved
-Hold lisinopril
# Right-sided cervical radiculopathy and lumbar radiculopathy
-pain control
#Paroxysmal atrial fibrillation
-hold Eliquis
-Continue metoprolol
#History of CAD
-hold Plavix, cont statin
#History of PVCs
#Alcoholic cirrhosis
#Hepatitis C status post liver transplant in 2006 at [facility]
-Continue tacrolimus
#History of multiple bile duct stents- stents removed - onc Dr. Tristian Short
#Essential hypertension
-cont metoprolol
-hold lisinopril
#Chronic neuropathy
-hold pregabalin
#COPD
DNR/DNI->Full
DVT prophylaxis�heparin
CC Note
Due to a high probability of clinically significant, life-threatening deterioration, the patient required a high level of preparedness to intervene emergently. I personally spent this critical care time directly and personally managing the patient.
This critical care time included obtaining a history; examining the patient; ordering and review of studies and STAT labs; arranging urgent treatment with development of a management plan; evaluation of patient's response to treatment; reassessment;
and, discussions with other providers.
This critical care time was performed to assess and manage the high probability of imminent, life-threatening deterioration that could result in multi-organ failure. It was exclusive of separately billable procedures and treating other patients and
teaching time.
Total critical care time: Approximately 39 minutes
Original Note:
Today's Communication/Plan
-
-Ciprofloxacin added by ID
-Continue Zosyn
-Wean off vasopressors as able to
Assessment / Plan
Assessment / Plan
The patient was presented to ER after having 1 episode of large amount diarrhea and his CT abdomen pelvis showed probable enteritis/ileitis. The patient was admitted with a concern of probable sepsis to enteritis and he was started on Zosyn. His
diarrhea diarrhea improved but he has been having ongoing abdominal discomfort as well as constipation. Due to his persistent bacteremia with Pseudomonas aeruginosa, the patient was consulted to ID. It was recommended to have a CT angio pelvis
abdomen for possible or to be iliac stent infection. CT angio abdomen pelvis showed acute aortitis and intraluminal mass in the distal common bile duct. Vascular surgery and gastroenterology team was consulted to assist the patient. The patient
underwent an urgent surgery on 05/01/24 and her infected stent was removed and has a right axillary bifemoral artery bypass on 05/01/2024. The patient was transferred to ICU. The patient was started on vasopressor and planned to extubated today on
05/02/24.
Problem list
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
CBD mass
Sepsis secondary to AAA stent graft infection vs hepatobiliary infection vs Enteritis/Ileitis
Leukocytosis
CHARISSE
Hypertension
Chronic pain to cervical/lumbar radiculopathy
Paroxysmal atrial fibrillation
History of CAD
History of PVCs
Hx of Alcoholic cirrhosis
Hepatitis C s/p liver transplant in 2006 [facility] [place] with with ongoing
History of multiple bile duct stents
Abdominal aortic aneurysm s/p repair at [facility]
Hyperlipidemia
Essential hypertension
COPD
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
-Hx of aorto bi iliac stent 19 years ago due AAA at [facility]
-CT angio abdomen: is suggestive of acute aortitis
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
-Vascular surgery on board, reporting Reasonable graft function with dopplerable DP signals bilaterally
-Admitted ICU
-On vasopressors
-[place] catheter was discontinued-- has still Cordis(central line) placed
-Pain management
-Extubation planned this pm on 05/02/24
#Sepsis suspected secondary to AAA stent graft infection vs hepatobiliary infection vs Enteritis/Ileitis
-Continue Zosyn /pos blood cx x 2 - pseudomonas-sensitive to Zosyn
-ID on board added ciprofloxacin IV
-Second blood culture 04/28 -pseud. aeruginosa// 05/02/24 blood culture pending
-Wound culture from infected aortic graft area is pending ( aortic sac purulent fluid)
-Leukocytosis
-Urine culture- NGTD
-On NG tube
-Hx of bile duct stent placement-all bile duct stents removed in the past by Dr Short at [facility], per patient`s report
#CBD mass
-History of liver transplantation in 2006 at [facility]-on tacrolimus
-History of multiple bile duct stents-all removed per patient report by Dr Short at [facility]
-GI on board with the plan of MRCP
-ERCP planned based on MRCP findings after patient more stabilized
-Plavix and Eliquis on hold due surgery- on heparin
# Constipation
-Abdominal c-vmd-pcmhvxvakdu series 04/28: Mild stool burden without obstruction findings
-Rectal rectal suppository was given on 04/29
-Miralax was given 2 dose
-No BM yet
-Monitor for BM closely
# DM
- Hba1c 7.5
- Continue SSI
- Plan starting metformin on DC
# Hyponatremia
- hypovolemic
- Continue IVF
- Follow BMP
# Acute kidney injury
-Resolved
-Cr 1.1 at likely baseline
-Hold lisinopril
#Essential hypertension
-Metoprolol on hold due low BP
- lisinopril on hold due low BP
#Paroxysmal atrial fibrillation
-Eliquis on hold by surgery
-Metoprolol on hold
-Started on heparin
# Right-sided cervical radiculopathy and lumbar radiculopathy
-Patient has some pain in his lower back suggesting lumbar radiculopathy
-Strength is preserved
#History of CAD
-Plavix on hold for now with the last dose on 05/01 am
-Statin on hold due feeding with NG tube
#History of PVCs
#Alcoholic cirrhosis
#Chronic neuropathy
-Continue pregabalin
#COPD
DNR/DNI
DVT prophylaxis- heparin
Dispo eventual DC home with HC
Anticipated Discharge: 24 - 48 hours
Subjective/Interval History
-
Date of Service: May 02, 2024
Patient underwent an urgent surgery yesterday and was transferred to ICU for close monitoring. Patient was seen in his bed sedated and intubated. He was started on Propofol, Fentanyl and Levophed drips.
Objective Data
-
Labs:
Laboratory Results
05/01/24 05/01/24 05/01/24
16:39 23:18 23:58
WBC Cancelled 25.1 H
Hgb Cancelled 9.9 L
Hct Cancelled 28.3 L
Plt Count Cancelled 172 D
PT Cancelled 20.2 H
INR Cancelled 1.67
APTT Cancelled
HCO3
Sodium Cancelled 131 L 131 L
Potassium Cancelled 4.4 4.3
Chloride Cancelled 106 107
Carbon Dioxide Cancelled 20 L 19 L
BUN Cancelled 18 17
Creatinine Cancelled 0.9 0.9
Glucose Cancelled 195 H 189 H
Calcium Cancelled 8.4 8.4
Total Bilirubin 2.9 H D 3.1 H
AST 24 24
ALT 18 18
Alkaline Phosphatase 126 123
05/02/24 05/02/24 05/02/24
00:00 05:12 06:00
WBC 49.1 H*
Hgb 10.5 L
Hct 29.3 L
Plt Count 162
PT Cancelled
INR Cancelled
APTT 31.9
HCO3 20.0 L
Sodium 133 L
Potassium 4.6
Chloride 108 H
Carbon Dioxide 17 L
BUN 20
Creatinine 1.1
Glucose 155 H
Calcium 8.1 L
Total Bilirubin 3.4 H
AST 28
ALT 18
Alkaline Phosphatase 114
05/02/24 05/02/24
12:00 18:00
WBC
Hgb
Hct
Plt Count
PT
INR
APTT
HCO3
Sodium Pending Pending
Potassium Pending Pending
Chloride Pending Pending
Carbon Dioxide Pending Pending
BUN Pending Pending
Creatinine Pending Pending
Glucose Pending Pending
Calcium Pending Pending
Total Bilirubin Pending Pending
AST Pending Pending
ALT Pending Pending
Alkaline Phosphatase Pending Pending
Vital Signs:
Vital Signs
Temp Pulse Resp BP Pulse Ox
99.1 F 69 13 100/70 99
05/02/24 06:12 05/02/24 08:03 05/02/24 08:03 05/02/24 08:03 05/02/24 08:03
I&O
05/01/24 05/02/24 05/03/24
06:59 06:59 06:59
Intake Total 1290 / 1290 857.4 / 1911.9 1839.0 / 1839.0
Output Total 1050 / 1050 637 / 652
Balance 240 / 240 220.4 / 1259.9 1809.0 / 1809.0
Review of Systems
-
Unable to obtain full review of systems at this time due to: Patient Intubation
Physical Exam
-
General: Well Developed, Well Nourished, Comfortable and Intubated
HEENT: Normocephalic, Atraumatic and Other (Has NG tube )
Respiratory: Clear to Auscultation
Cardiac: Regular Rhythm, S1/S2 and Other (chest tube is intact )
GI: Soft and Other (generalized edema on all over the body )
Musculoskeletal: Other (+3/4 pitting edema bilateral lower extremities)
Skin: Warm, Dry and IV Access / Catheter Site (central line on left side and arterial line on left arm)
[2024-05-02] MEDS: DIPRIVAN 100 IV (09:53)
--- NOTE | 2024-05-02 09:53 | W.PN.ID1 ---
Date of Service
Date of Service: May 02, 2024
Today's Communication
- Continue Zosyn 4.5g IV q6
- add ciprofloxacin IV for now
- patient is critically ill
Assessment / Plan
# Sustained Pseudomonas bacteremia- source from infected stent grafts and/or biliary duct obstruction
# AAA stent graft infection.
hx AAA s/p aortobi-iliac stent graft (at [facility])
CTA: acute aortitis
# Biliary obstruction with intraluminal mass in CBD
# Leukocytosis - persists
# hx liver transplant on tacrolimus
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
- ERCP currently on hold
- check QTc
- 04/30 blood cultures - NGTD
- Repeat bcx's x2 today
- Appreciate Vascular
- Appreciate GI - favor ERCP if/when feasible, patient is currently quite unstable
- Continue Zosyn 4.5g IV q6
- add ciprofloxacin IV for now
- patient is critically ill
# Conditions [employer]
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
Paroxysmal atrial fibrillation
CAD
Hypertension
Neuropathy
COPD
AAA s/p aortobi-iliac stent graft
Cholecystectomy
Back surgery
History of multiple bile duct stents
Chief Complaint
-: Leukocytosis and Bacteremia
Subjective / Review of Systems
remains afebrile
increasing pressor requirements through the day
now on increased IVF
had acute new abdominal pain yesterday and imaging revealed change in graft size, thus underwent removal aortic endograft and Right axillary bifemoral artery bypass
Vital Signs / Physical Exam
Vital Signs
Vital Signs
Temp Pulse Resp BP Pulse Ox
99.1 F 69 13 100/70 99
05/02/24 06:12 05/02/24 08:03 05/02/24 08:03 05/02/24 08:03 05/02/24 08:03
Physical Exam
Constitutional: Acutely Ill and Chronically Ill
Cardiovascular: Regular Rate and S1/S2; Negative Murmur or Rub
Pulmonary: Clear and Symmetric; Negative Wheezes or Rales
Gastrointestinal: Soft, Non Tender, Non Distended and Normal Bowel Sounds
Skin: Warm and Dry; Negative Rash or Jaundice
Objective Data
Lab Data
Lab Results
05/02/24 05:12
PT Cancelled 05/02/24 06:00
INR Cancelled 05/02/24 06:00
APTT 31.9 Sec (23.4-35.0) 05/02/24 05:12
Estimated Creat Clear 65 ml/min 05/02/24 05:12
Lactic Acid 1.4 mmol/L (0.7-2.0) 05/02/24 08:21
Total Bilirubin 3.4 mg/dl (0.2-1.3) H 05/02/24 05:12
AST 28 U/L (17-59) 05/02/24 05:12
ALT 18 U/L (0-50) 05/02/24 05:12
Alkaline Phosphatase 114 U/L (38-126) 05/02/24 05:12
Most recent labs reviewed.
note normalized lactic acid
Blood Culture Preliminary 04/29/24
Positive for Pseudomonas aeruginosa by [employer]
[facility] Nucleic Acid Methodology.
Organism 1 Pseudomonas aeruginosa
1. Pseudomonas aeruginosa
M.I.C. RX
--------- ---
Aztreonam <=4 S
Cefepime <=2 S
Ceftazidime 4 S
Ciprofloxacin <=0.25 S
Meropenem <=1 S
Piperacillin/Tazobactam <=8 S
Tobramycin <=2 S
Chest X-Ray: Image Reviewed and Report Reviewed (No pneumothorax. Persistent left basilar airspace opacity)
Micro Results:
04/29/24 06:51 Blood Culture - Preliminary
Blood/Venous Pseudomonas aeruginosa
Gram Stain - Preliminary
04/30/24 09:18 Blood Culture - Preliminary
Blood/Venous No Growth in 48 hours- Final report to follow
05/01/24 20:42 Tissue Culture - Pending
Tissue Gram Stain - Pending
05/01/24 20:42 Tissue Culture - Pending
Heart Gram Stain - Pending
05/01/24 20:42 Anaerobic Culture - Pending
Abdomen
05/01/24 20:42 Wound Culture - Pending
Abdomen Gram Stain - Pending
04/30/24 08:50 Blood Culture - Preliminary
Blood/Venous No Growth in 24 hours- Final report to follow
04/28/24 13:34 Blood Culture - Preliminary
Blood/Venous Pseudomonas aeruginosa
Gram Stain - Preliminary
04/25/24 15:59 Blood Culture - Preliminary
Blood/Venous Pseudomonas aeruginosa
Gram Stain - Preliminary
04/25/24 15:59 Blood Culture - Preliminary
Blood/Venous Pseudomonas aeruginosa
Gram Stain - Preliminary
04/25/24 17:36 Urine Culture - Final
Urine NO GROWTH
04/26/24 00:04 MRSA Screen - Final
Nose No Methicillin Resistant Staphylococcus aureus isolated.
04/25/24 08:58 Influenza Types A & B (NITIN) - Final
Nasal Swab Negative for Influenza A & B, NAAT
Negative results must be combined with clinical observations
and patient history.
Nucleic Acid Amplification test (NAAT)performed on the
[employer] platform.
04/28/24 CT a/p: Probable enteritis/ileus. Cannot rule out developing small bowel obstruction with questionable transition points as described.
04/28/24 Chest/abd xray: Nonobstructive bowel gas pattern. Mild colonic stool burden.
04/30/24 CT angiogram a/p: Aortobiiliac endograft in place with an interval increase in size of the [place] aneurysm sac around the endograft, interval increase in circumferential wall thickening of the [place] aneurysm, mild retroperitoneal
inflammation, and increased small retroperitoneal lymph nodes. The constellation of findings is suggestive of ACUTE AORTITIS which could be secondary to infection or inflammatory disease.
2. Moderate extrahepatic biliary dilatation with suggestion of an obstructing 1.3 cm intraluminal mass in the distal common bile duct. Diagnostic possibilities are (1) choledocholithiasis or (2) less likely bile duct cancer. Mild wall thickening
and hyperenhancement of the common hepatic and common bile ducts suggesting CHOLANGITIS.
3. Right upper quadrant liver transplant in place with mild pneumobilia in the liver.
[2024-05-02] MEDS: NSS 500 IV (09:54)
--- NOTE | 2024-05-02 10:00 | PTCARENOTE ---
Alexia Barbosa aware that urine output still decreased after fluid boluses, but lactic cleared. Confirmed liter bolus via tiger text and albumin also ordered and infusing.
[2024-05-02 10:03] LABS: Glucose - Point of Care 199 mg/dl (70-99)
[2024-05-02] MEDS: FLEXBUMIN 100 IV (10:03)
[2024-05-02 10:08] LABS: Glucose - Point of Care 166 mg/dl (70-99)
[2024-05-02 11:14] LABS: Glucose - Point of Care 191 mg/dl (70-99)
--- NOTE | 2024-05-02 11:28 | W.PN.ANS.POP ---
Anesthesia Post Operative
- Anesthesia Post Op Note
Vital Signs Stable-See Nursing Note: No ( Patient on levophed, behind on fluids as per nursing, swan in place.)
Airway Patent: Yes (no weaning until fluid status is resolved)
Adequate Pain Control: Yes
Change in Mental Status: Yes (patient on fentanyl and propofol infusions)
Current Postoperative Nausea & Vomiting: No
Anesthesia Complications: No
General Anesthetic Recall: No
Unplanned Admission: No
Post Op Hydration Adequate: Yes (receiving fluids and albumin)
[2024-05-02] MEDS: PRECEDEX 100 IV (11:40)
[2024-05-02] MEDS: PROGRAF 1.5 MG TUBE ×2 (11:54→21:03)
[2024-05-02] MEDS: CIPRO 400 MG 200 IV ×2 (12:18→20:56)
[2024-05-02 12:24] LABS: Glucose - Point of Care 181 mg/dl (70-99)
--- NOTE | 2024-05-02 12:50 | PTCARENOTE ---
systems reviewed. pt has now been weaned off propofol, precedex added as charted and pt placed on wean. 5/5 40%. tolerating well. urine output remains marginal, multiple updates t/o shift to Alexia Barbosa, orders noted.
[2024-05-02 12:58] LABS: Glucose - Point of Care 175 mg/dl (70-99)
[2024-05-02] MEDS: CATHFLO/ACTIVASE 2 MG INTRACATH (13:28)
--- NOTE | 2024-05-02 13:33 | PTCARENOTE ---
cath angy placed in CORDIS L IJ
[2024-05-02 13:41] LABS: ALT (SGPT) 17 U/L (0-50); AST (SGOT) 32 U/L (17-59); Albumin 1.8 g/dl (3.5-5.0); Alkaline Phosphatase 100 U/L (38-126); Blood Urea Nitrogen 21 mg/dl (9-20); Calcium 7.6 mg/dl (8.4-10.2); Carbon Dioxide 13 mmol/L (22-30); Chloride 108 mmol/L (98-107); Estimated Creatinine Clearance 75 ml/min; Glucose 163 mg/dl (70-99); Magnesium 1.7 mg/dl (1.6-2.3); Phosphorus 4.4 mg/dl (2.5-4.5); Potassium 4.8 mmol/L (3.5-5.1); Sodium 132 mmol/L (135-145); Total Bilirubin 2.7 mg/dl (0.2-1.3); Total Protein 3.8 g/dl (6.3-8.2); Triglycerides 58 mg/dl (10-149); eGFR > 60.00
[2024-05-02 14:16] LABS: Glucose - Point of Care 175 mg/dl (70-99)
[2024-05-02 14:24] LABS: B.E. -7.3 mmol/L; HCO3 17.9 mmol/L (21-28); O2 Saturation % 99.7 % (94-98); PCO2 34 mmHg (35-48); PO2 107 mmHg (83-108); pH 7.33 (7.35-7.45)
[2024-05-02 14:25] LABS: Hematocrit 23.6 % (39.0-52.0); Hemoglobin 8.4 g/dL (13.0-18.0); Mean Corp Hgb Conc. 35.6 g/dL (33.0-37.0); Mean Corpuscular Hgb 31.7 pg (27.0-31.0); Mean Corpuscular Volume 89.1 fL (80.0-94.0); Mean Platelet Volume 12.7 fL (7.4-10.4); Platelet Count 145 10^3/uL (130-400); Red Blood Cell Count 2.65 10^6/uL (4.70-6.10); Red Cell Dist. Width 15.4 % (11.5-14.5); White Blood Cell Count 28.4 10^3/uL (4.8-10.8)
[2024-05-02 15:07] LABS: Glucose - Point of Care 156 mg/dl (70-99)
--- NOTE | 2024-05-02 15:15 | RESPNOTE ---
Patient extubated to a 6L nasal cannula following cpap wean.
--- NOTE | 2024-05-02 15:36 | PTCARENOTE ---
Pt has now been extubated to 6lnc, drowsy, but arousable. swan has been removed. ngt without output.
--- NOTE | 2024-05-02 15:54 | CM ---
CM following re: discharge planning.
Reviewed pt's chart, met with pt. per Rounds meeting, pt is Postoperative day #1, intubated yesterday, remains intubated, continue supportive care.
PT and OT will evaluate the pt when clinically appropriate to determine a level of care at discharge.
D/C plan: uncertain at this time and will depend on pt's progress.
CM will follow with discharge plan updates as hospitalization progresses.
[2024-05-02] MEDS: OFIRMEV 100 IV ×2 (16:13→22:58)
--- NOTE | 2024-05-02 16:22 | W.PN.UPDATE ---
Update Note
Progress Note Update
reviewed with Dr. Trujillo if LFT's remain stable and no unexplained fever, chills, abdominal pain. Plan for OP GI follow up for concern for CBD stone after improved from vascular standpoint. Call back if any issue during admission.
--- NOTE | 2024-05-02 16:23 | PTCARENOTE ---
prbc initiated as ordered
[2024-05-02 16:37] LABS: Glucose - Point of Care 146 mg/dl (70-99)
[2024-05-02] MEDS: DILAUDID 0.5 MG IV ×2 (17:32→21:05)
--- NOTE | 2024-05-02 17:44 | PTCARENOTE ---
PT LEST RESTLESS AFTER OFIRMEV, BUT WAKING UP AND C/O L ABDOMINAL PAIN. DILAUDID GIVEN CHARTED. SECOND UNIT OF PRBC INFUSING.
--- NOTE | 2024-05-02 17:56 | PTCARENOTE ---
Daughter in to see pt and updated. Discussed home med list, but tacrolimus still needs dose comfirmed. She will bring in tomorrow to confirm. Also questioned regarding code status given DNR prior to surgery. She will also bring in living will
and hopefully tomorrow pt will be more lucid to make his own decision and if not, she will discuss with brothers. She did say they would not want vent senior care, but did not want to change code status currently.
[2024-05-02] MEDS: SODIUM BICARBONATE 1150 MEQ IV (18:05)
[2024-05-02 18:45] LABS: Glucose - Point of Care 118 mg/dl (70-99)
[2024-05-02] MEDS: NOVOLIN R INSULIN INFUSION 100 IV (19:00)
--- NOTE | 2024-05-02 20:00 | PTCARENOTE ---
Resumed care of pt this evening. Pt presents more alert and oriented compared to previous shift supervisor melting. Pt oriented to person and place. Pt is confused and forgetful at times. Neurovascular checks unchanged.
[2024-05-02] MEDS: ATROVENT NEBULES 0.5 MG INH (20:14)
[2024-05-02 20:41] LABS: Glucose - Point of Care 137 mg/dl (70-99)
--- NOTE | 2024-05-02 21:30 | PTCARENOTE ---
Pt c/o of 8 out 10 abdominal pain. PRN dose of dilaudid administered by this RN.
[2024-05-02 21:44] LABS: Hematocrit 25.7 % (39.0-52.0); Hemoglobin 9.3 g/dL (13.0-18.0); Mean Corp Hgb Conc. 36.2 g/dL (33.0-37.0); Mean Corpuscular Hgb 31.8 pg (27.0-31.0); Mean Platelet Volume 12.6 fL (7.4-10.4); Platelet Count 132 10^3/uL (130-400); Red Blood Cell Count 2.92 10^6/uL (4.70-6.10); Red Cell Dist. Width 15.1 % (11.5-14.5); White Blood Cell Count 24.3 10^3/uL (4.8-10.8)
[2024-05-02 21:59] LABS: ALT (SGPT) 19 U/L (0-50); AST (SGOT) 38 U/L (17-59); Albumin 1.5 g/dl (3.5-5.0); Alkaline Phosphatase 92 U/L (38-126); Blood Urea Nitrogen 25 mg/dl (9-20); Calcium 7.6 mg/dl (8.4-10.2); Carbon Dioxide 17 mmol/L (22-30); Chloride 105 mmol/L (98-107); Estimated Creatinine Clearance 63 ml/min; Glucose 153 mg/dl (70-99); Magnesium 1.7 mg/dl (1.6-2.3); Phosphorus 4.2 mg/dl (2.5-4.5); Potassium 3.9 mmol/L (3.5-5.1); Sodium 130 mmol/L (135-145); Total Bilirubin 2.8 mg/dl (0.2-1.3); Total Protein 3.6 g/dl (6.3-8.2); eGFR 57.65
[2024-05-02 22:53] LABS: Glucose - Point of Care 141 mg/dl (70-99)
[2024-05-03] VITALS (24 sets, daily range): BP systolic 79–123; BP diastolic 50–88; BMI 34.3
[2024-05-03] MEDS: HEPARIN 5000 UNITS SC ×4 (00:44→23:24)
[2024-05-03 00:53] LABS: Glucose - Point of Care 135 mg/dl (70-99)
[2024-05-03] MEDS: DILAUDID 0.5 MG IV ×3 (01:32→22:46)
[2024-05-03 02:45] LABS: Glucose - Point of Care 115 mg/dl (70-99)
--- NOTE | 2024-05-03 04:00 | PTCARENOTE ---
Pt had moment a of confusion and became anxious. Pt reoriented and bed alarm turned on due to pt hanging rt leg over the side of the bed.
[2024-05-03] MEDS: SODIUM BICARBONATE 1150 MEQ IV ×3 (04:02→23:16)
[2024-05-03] MEDS: ZOSYN 100 IV ×4 (04:11→22:28)
[2024-05-03 04:45] LABS: Glucose - Point of Care 118 mg/dl (70-99)
[2024-05-03] MEDS: OFIRMEV 100 IV ×2 (04:54→10:31)
[2024-05-03 04:58] LABS: Hematocrit 24.8 % (39.0-52.0); Mean Corp Hgb Conc. 36.3 g/dL (33.0-37.0); Mean Corpuscular Hgb 31.5 pg (27.0-31.0); Mean Corpuscular Volume 86.7 fL (80.0-94.0); Mean Platelet Volume 12.7 fL (7.4-10.4); Platelet Count 133 10^3/uL (130-400); Red Blood Cell Count 2.86 10^6/uL (4.70-6.10); Red Cell Dist. Width 15.2 % (11.5-14.5); White Blood Cell Count 26.2 10^3/uL (4.8-10.8)
[2024-05-03] MEDS: CIPRO 400 MG 200 IV ×3 (05:19→19:43)
[2024-05-03 05:45] LABS: Blood Urea Nitrogen 26 mg/dl (9-20); Calcium 7.5 mg/dl (8.4-10.2); Carbon Dioxide 17 mmol/L (22-30); Chloride 106 mmol/L (98-107); Estimated Creatinine Clearance 63 ml/min; Glucose 107 mg/dl (70-99); Potassium 3.6 mmol/L (3.5-5.1); Sodium 133 mmol/L (135-145); eGFR 57.65
[2024-05-03 06:49] LABS: Glucose - Point of Care 115 mg/dl (70-99)
--- NOTE | 2024-05-03 07:15 | PTCARENOTE ---
Received patient from awake overnight monitor. Patient is AAOx2, confused, follows commands. Bilateral soft limb restraints on. he is on 6L nasal cannula and left chest wall to suction-20. no air leak, no crepitus, left radial Diana with BP as charted, all
connections secured and leveled at phlebostatic axis. SCDs on and heparin SQ for dvt prophylaxis. Patient is NPO with right nare NGT to low intermittent wall suction, harris for urinary output. patient has multiple wounds, to be documented in
focused shift assessment. will review orders.
--- NOTE | 2024-05-03 07:26 | W.PN.ID1 ---
Date of Service
Date of Service: May 03, 2024
Today's Communication
- Continue Zosyn 4.5g IV q6
- c/w ciprofloxacin IV for now
Assessment / Plan
# Sustained Pseudomonas bacteremia- source from infected stent grafts and/or biliary duct obstruction
# AAA stent graft infection.
hx AAA s/p aortobi-iliac stent graft (at [facility])
CTA: acute aortitis
# Biliary obstruction with intraluminal mass in CBD
# Leukocytosis - persists
# hx liver transplant on tacrolimus
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
- QTc has been acceptable
- 04/30 blood cultures - NGTD
- 05/02 blood cultures - NGTD
- 05/01 tissue cultures from the OR - NGTD
- Appreciate Vascular
- Appreciate GI - ERCP currently on hold and may be done outpatient
- Continue Zosyn 4.5g IV q6
- c/w ciprofloxacin IV for now
- note vascular recommendation for suppressive antibiotics
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
Paroxysmal atrial fibrillation
CAD
Hypertension
Neuropathy
COPD
AAA s/p aortobi-iliac stent graft
Cholecystectomy
Back surgery
History of multiple bile duct stents
Chief Complaint
-: Leukocytosis and Bacteremia
Subjective / Review of Systems
short lived hypothermia overnight
pressors weaned off
chest tube to water seal
some abdominal pain overnight
also had blood transfusion overnight
restraints on this AM
Vital Signs / Physical Exam
Vital Signs
Vital Signs
Temp Pulse Resp BP Pulse Ox
97.4 F 64 14 99/63 98
05/03/24 07:16 05/03/24 06:00 05/03/24 06:00 05/03/24 06:00 05/03/24 06:00
Physical Exam
Constitutional: Chronically Ill and Non-toxic
Cardiovascular: Regular Rate and S1/S2; Negative Murmur or Rub
Pulmonary: Clear and Symmetric; Negative Wheezes or Rales
Gastrointestinal: Soft, Non Tender, Non Distended and Normal Bowel Sounds
Skin: Warm and Dry; Negative Rash or Jaundice
Wound: Other (surgical sites x6 dressings dry, intact, minimal strike through)
Objective Data
Lab Data
Lab Results
05/03/24 04:44
05/03/24 04:44
PT Cancelled 05/02/24 06:00
INR Cancelled 05/02/24 06:00
APTT 31.9 Sec (23.4-35.0) 05/02/24 05:12
Estimated Creat Clear 63 ml/min 05/03/24 04:44
Lactic Acid 1.4 mmol/L (0.7-2.0) 05/02/24 08:21
Total Bilirubin 2.8 mg/dl (0.2-1.3) H 05/02/24 21:29
AST 38 U/L (17-59) 05/02/24 21:29
ALT 19 U/L (0-50) 05/02/24 21:29
Alkaline Phosphatase 92 U/L (38-126) 05/02/24 21:29
Most recent labs reviewed.
Micro Results:
04/25/24 15:59 Blood Culture - Final
Blood/Venous Pseudomonas aeruginosa
Gram Stain - Final
04/25/24 15:59 Blood Culture - Final
Blood/Venous Pseudomonas aeruginosa
Gram Stain - Final
05/02/24 12:54 Blood Culture - Pending
Blood/Venous
04/30/24 08:50 Blood Culture - Preliminary
Blood/Venous No Growth in 48 hours- Final report to follow
05/02/24 12:37 Blood Culture - Pending
Blood/Venous
05/01/24 20:42 Tissue Culture - Pending
Heart Gram Stain - Preliminary
05/01/24 20:42 Tissue Culture - Pending
Tissue Gram Stain - Preliminary
05/01/24 20:42 Wound Culture - Pending
Abdomen Gram Stain - Preliminary
04/29/24 06:51 Blood Culture - Preliminary
Blood/Venous Pseudomonas aeruginosa
Gram Stain - Preliminary
04/30/24 09:18 Blood Culture - Preliminary
Blood/Venous No Growth in 48 hours- Final report to follow
05/01/24 20:42 Anaerobic Culture - Pending
Abdomen
04/28/24 13:34 Blood Culture - Preliminary
Blood/Venous Pseudomonas aeruginosa
Gram Stain - Preliminary
04/25/24 17:36 Urine Culture - Final
Urine NO GROWTH
04/26/24 00:04 MRSA Screen - Final
Nose No Methicillin Resistant Staphylococcus aureus isolated.
04/25/24 08:58 Influenza Types A & B (NITIN) - Final
Nasal Swab Negative for Influenza A & B, NAAT
Negative results must be combined with clinical observations
and patient history.
Nucleic Acid Amplification test (NAAT)performed on the
[employer] platform.
04/28/24 CT a/p: Probable enteritis/ileus. Cannot rule out developing small bowel obstruction with questionable transition points as described.
04/28/24 Chest/abd xray: Nonobstructive bowel gas pattern. Mild colonic stool burden.
04/30/24 CT angiogram a/p: Aortobiiliac endograft in place with an interval increase in size of the little river aneurysm sac around the endograft, interval increase in circumferential wall thickening of the little river aneurysm, mild retroperitoneal
inflammation, and increased small retroperitoneal lymph nodes. The constellation of findings is suggestive of ACUTE AORTITIS which could be secondary to infection or inflammatory disease.
2. Moderate extrahepatic biliary dilatation with suggestion of an obstructing 1.3 cm intraluminal mass in the distal common bile duct. Diagnostic possibilities are (1) choledocholithiasis or (2) less likely bile duct cancer. Mild wall thickening
and hyperenhancement of the common hepatic and common bile ducts suggesting CHOLANGITIS.
3. Right upper quadrant liver transplant in place with mild pneumobilia in the liver.
[2024-05-03] MEDS: ATROVENT NEBULES 0.5 MG INH (07:42)
[2024-05-03] MEDS: MAG-TAB SR PO (07:43)
[2024-05-03] MEDS: ADVAIR HFA 45/21 MCG INHALER 2 PUFF INH ×2 (07:46→19:40)
--- NOTE | 2024-05-03 07:49 | PTCARENOTE ---
Chest tube now to water seal
[2024-05-03] MEDS: PROTONIX IV 40 MG IV ×2 (07:58→19:43)
[2024-05-03] MEDS: NSS (PRESERVATIVE FREE) 10 ML IV ×2 (07:58→19:43)
[2024-05-03] MEDS: PROGRAF 1.5 MG TUBE ×2 (07:59→19:43)
--- NOTE | 2024-05-03 08:10 | W.PN.INTV ---
Today's Communication / Plan
Recommendations
Continue aspiration precautions
PO meds as per vascular surgery
Hold off starting tube feeds until okay per vascular surgery
Chest tube management per vascular surgery
Continue Prograf and follow-up tacrolimus level (pending)
Wean down supplemental oxygen as tolerated while keeping SpO2 88-95%
Continue insulin drip with goal BG 140�180
Code status being discussed amongst the family
Continue ICU level care for this critically ill patient
Assessment
-
Assessment: 73-year-old male with a past medical history of alcoholic cirrhosis with hepatitis C virus s/p liver transplantation on tacrolimus ([facility] � 2006), AAA s/p repair ([facility] � 2005), history of hepatitis, CAD with history of FL (2017)
s/p coronary stent, hypertension, COVID-19 (April 2020), paroxysmal A-fib on Eliquis and a reported history of COPD who presents with fever, runny nose, diarrhea, and reduced appetite. He was feeling unwell for 4 days prior to arrival. He has also
had a mild cough with some shortness of breath. He was diagnosed with a suspected viral enteritis after initial CT abdomen/pelvis on 04/25/2024 showed slightly prominent fluid-filled small bowel loops in the lower abdomen without perforation or
abscess seen. Of note, initial CXR showed no evidence of pneumonia. He was initially admitted to [facility] for further care. Blood cultures became positive due to Pseudomonas. He was initially started on antibiotics on 04/26/2024, and continued with
his tacrolimus. ID consulted on 04/29, and on 04/30 a CTA abdomen/pelvis was performed showing acute aortitis likely related to the aortobiiliac endograft. Given the concern for graft infection, patient was urgently brought to the OR, and on
05/01/2024 Dr. Brannon performed a right axillary bifemoral artery bypass as well as explantation of the entirety of his infected aortic endograft via retroperitoneal incision with oversewing of aortic and iliac systems and wide debridement of his
retroperitoneum. There were no immediate complications, and the patient was transferred to the ICU on the ventilator with suit attendant services consulted for additional management/recommendations. As per the RN, EBL was about 1200 cc.
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
history of PVCs, reported history of COPD
Impression:
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
#Circulatory shock requiring vasopressors � likely sedation related as he was not on pressors prior to intubation - shock state resolved since evening of 05/02/2024
#Acute respiratory failure with hypoxia - remained intubated post-operatively likely due to the timing of the procedure that occurred very late in the evening on 05/01/2024 --> extubated 05/02/2024
#Leukocytosis with concern for leukemoid reaction
#Acute on chronic anemia due to operation above
#Acute thrombocytopenia due to operation above
#Metabolic acidosis with preserved anion gap
#Hyperbilirubinemia (chronic)
#Hypoalbuminemia
#DM type II (uncontrolled � HbA1c 7.5 on 04/29/2024) complicated by hyperglycemia now on insulin drip
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
#CAD with history of FL (2017) s/p coronary stent
#Hypertension
#History of COVID-19 (April 2020)
#Paroxysmal A-fib on Eliquis
#Reported history of COPD
Plan:
Postoperative surgical intensive care unit monitoring
Several OR cultures are now growing Pseudomonas aeruginosa; continue to follow-up remaining cultures; also follow up pathology that were collected from the OR
Continue with supplemental oxygen and wean down as tolerated while keeping SpO2 88-95%
Of note, patient is DNR/DNI and code status was only reversed for the operation on 05/01 --> family aware about this and this will be an ongoing discussion if he should be reverted back to DNR/DNI
Continue with aspiration precautions keeping HOB >30-45�
prn nebulized bronchodilators � not currently bronchospastic
Patient does use Spiriva + Advair at home � continue with Advair and change nebulized atrovent to Spiriva
Pain control
Neuro and vascular checks per protocol
Maintain MAP>65
Patient off Levophed since 05/02/2024
Replete electrolytes with K>4, Mg>2
Maintain euglycemia with goal BG 140-180 --> currently on insulin drip
Continue Prograf, resuming other home PO meds when ok per surgery; also no enteral nutrition as vascular surgery does not want to use the gut just yet, especially this soon after surgery
Follow up prograf level
Vascular surgery following-correspondence and operative notes reviewed
Chest tube management as per vascular surgery � currently on waterseal with no air leak on left hemithorax
Transfuse blood products as needed to keep Hb>7g/dL, and plt>50k (given post-operative status)
DVT prophylaxis: HSQ - change to BID
Early nutrition when deemed ok per vascular surgery - for now they want the pt to be NPO with no meds except his prograf
Early mobilization when feasibile
Code status: He currently is full code, however prior to this operation he was DNR/DNI. Code status is actively being discussed with the patient/family to see if they want to revert back to his prior code status of DNR/DNI. For now, continue with
full code in this post-operative state.
Continue with ICU level care for this critically ill patient
Critical care statement: A total of 40 minutes of critical care time was provided for this patient today. This includes management of unstable vital signs, evaluation of the patient at bedside, reviewing the patient's pertinent medical records
including radiographs, microbiology, laboratory evaluations, and discussion with primary team, consultants, pharmacy, nutrition, physical therapy, case management, charge nurse, critical care nursing, and respiratory therapy.
Subjective Dataa
Subjective Data
Date of Service:
Date of Service: May 03, 2024
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
Subjective:
Patient seen and evaluated today at bedside. Extubated yesterday. Currently on 4 L/min nasal cannula saturating 100%. Remains on insulin drip at 1.2 units/h. Current BP 106/58 + heart rate 86. He is lethargic but arousable to voice, following
some commands. Left-sided chest tube is now on continuous waterseal with no air leak. Vasopressors have been off since yesterday evening.
Review of Systems
General: Other (Unobtainable (lethargy))
Objective Data
Data Reviewed
Vital Signs / I&O / Oxygen:
Vital Signs
Temp Pulse Resp BP Pulse Ox
97.4 F 67 12 108/57 96
05/03/24 07:16 05/03/24 08:00 05/03/24 08:00 05/03/24 08:00 05/03/24 08:42
Intake and Output
05/02/24 05/03/24 05/04/24
06:59 06:59 06:59
Intake Total 857.4 / 1911.6 8435.4 / 8567.7 264.6 / 264.6
Output Total 637 / 652 420.0 / 440.0 40 / 40
Balance 220.4 / 1259.6 8015.4 / 8127.7 224.6 / 224.6
SaO2 [A/C] 100
SaO2 96
Nasal Cannula flow liters per 4
minute
Physical Exam
General: Respiratory Distress (negative), Comfortable, Chills (negative) and Sweats (negative)
HEENT: Normocephalic and Anicteric
Cardiovascular: S1-S2, Rub (negative) and Peripheral Edema (+2 lower extremity pitting edema bilaterally)
Respiratory: Wheeze (negative), Rhonchi (negative), Non-Labored Respirations, Stridor (negative), Chest Tube (Left-sided chest tube: Continuous waterseal with no air leak) and Other (Coarse breath sounds heard bilaterally)
GI: Soft, Distended (Abdominal obesity), Non Tender and Normal Bowel Sounds
Neurology: Tremors (negative) and Lethargic (Easily arousable to voice and tactile stimulation and following some commands)
Skin: Warm, Dry, Cyanosis (negative) and Jaundice (negative)
Labs/Micro/Reports
Laboratory Results
05/02/24
13:49
pH 7.33 L
pCO2 34 L
pO2 107
HCO3 17.9 L
O2 Delivery Level
Microbiology
04/30/24 09:18 Blood/Venous Blood Culture - Preliminary
No Growth in 72 hours- Final report to follow
04/29/24 06:51 Blood/Venous Blood Culture - Preliminary
Pseudomonas aeruginosa
04/29/24 06:51 Blood/Venous Gram Stain - Preliminary
04/25/24 15:59 Blood/Venous Blood Culture - Final
Pseudomonas aeruginosa
04/25/24 15:59 Blood/Venous Gram Stain - Final
04/25/24 15:59 Blood/Venous Blood Culture - Final
Pseudomonas aeruginosa
04/25/24 15:59 Blood/Venous Gram Stain - Final
04/30/24 08:50 Blood/Venous Blood Culture - Preliminary
No Growth in 48 hours- Final report to follow
05/01/24 20:42 Heart Gram Stain - Preliminary
05/01/24 20:42 Tissue Gram Stain - Preliminary
05/01/24 20:42 Abdomen Gram Stain - Preliminary
04/28/24 13:34 Blood/Venous Blood Culture - Preliminary
Pseudomonas aeruginosa
04/28/24 13:34 Blood/Venous Gram Stain - Preliminary
[2024-05-03 08:46] LABS: Glucose - Point of Care 109 mg/dl (70-99)
--- NOTE | 2024-05-03 08:48 | W.PN.VS ---
Addendum entered and electronically signed by Gamaliel Vaughn III, MD 05/03/24 10:43:
This patient was seen and examined in collaboration with GUILLERMO Moser. I agree with the history and physical exam as well as the assessment and plan. I have the following additions:
Urine output remains marginal at best
Without complaints this morning
Off pressors
Abdomen obese but soft and nontender
Dressings clean and dry
He is alert
Doppler signals present bilaterally feet
Continue ICU monitoring
Patient is 8 L positive from yesterday-will give Lasix today aiming for gentle diuresis
NG tube to low wall suction
DVT prophylaxis
GI prophylaxis
Keep in ICU
Antibiotics
Okay for out of bed
Signed:
Gamaliel Vaughn III, MD
[facility] Vascular Surgery
[phone] (audt)
Original Note:
Today's Communication / Plan
-
Patient seen and examined at bedside with Dr. Gamaliel Vaughn III, below plan reviewed with attending.
Assessment/Plan
-
POD 2 Right axillary bifemoral artery bypass with 8 mm ringed [place] Propaten graft.
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
Plan:
-Given roughly 800 mL positive on I&O flow sheet with minimal urine output and +3 bilateral lower extremity edema will give IV Lasix dose x 1
-Chest tube to waterseal
-Keep n.p.o., keep NG tube, keep Vaughn catheter
-Antibiotics per ID
-Remain in ICU
Subjective Data
-
Date of Service: May 03, 2024
Patient seen and examined at bedside, reports well-managed postoperative pain. Tolerating NG tube. Denies nausea, vomiting, fever, and chills.
Objective Data
-
Vital Signs
Temp Pulse Resp BP Pulse Ox
97.4 F 67 12 108/57 96
05/03/24 07:16 05/03/24 08:00 05/03/24 08:00 05/03/24 08:00 05/03/24 08:42
Intake and Output
05/02/24 05/03/24 05/04/24
06:59 06:59 06:59
Intake Total 857.4 / 1911.6 8435.4 / 8567.7 264.6 / 264.6
Output Total 637 / 652 420.0 / 440.0 40 / 40
Balance 220.4 / 1259.6 8015.4 / 8127.7 224.6 / 224.6
Intake:
IV fluids (Total) 257.4 / 1311.6 6670.4 / 6802.7 264.6 / 264.6
Heparin 17.4 / 17.4
INSULIN 67.0 / 69.3 4.6 / 4.6
KVO 120 / 130 20 / 20
Levo 240.0 / 285.0 277.7 / 277.7
Nss 1,000 ml @ 200 mls/hr IV . 1999 / 1999
Q5H PETE Rx#:[id number]
Sterile Water For Injection 1560 / 1680 240 / 240
1000 ml 1,000 ml @ 120 mls/hr
IV .Q9H35M PETE with Sodium
Bicarbonate 150 Meq Rx#:
[id number]
fentanyl 70.0 / 70.0
lr 1000 / 1000
nss 1500 / 1500
precedex 43.2 / 43.2
propofol 32.5 / 32.5
IV piggybacks 1050 / 1050
Amount instilled into GI Tube ( 115 / 115
Total)
Gable Sump 115 / 115
Blood Products 100 / 100
Albumin 25% 100 / 100
Blood Product Amount Infused ( 600 / 600 500 / 500
mL)
Fresh Frozen Plasma 24 Hours 350 / 350
Unit [id number]
Packed Rbc Leukoreduced Unit 250 / 250
[id number]
Packed Rbc Leukoreduced Unit 250 / 250
[id number]
Packed Rbc Leukoreduced Unit 250 / 250
[id number]
Output:
CT Output (Total) 0 / 0
Left Lateral 0 / 0
Gastrointestinal tube output ( 0 / 0
Total)
Gable Sump 0 / 0
Urine, Vaughn 637 / 652 395.0 / 415.0 40 / 40
Lab Results
05/03/24 04:44
05/03/24 04:44
Calcium 7.5 mg/dl (8.4-10.2) L 05/03/24 04:44
Phosphorus 4.2 mg/dl (2.5-4.5) 05/02/24 21:29
Magnesium 1.7 mg/dl (1.6-2.3) 05/02/24 21:29
Total Bilirubin 2.8 mg/dl (0.2-1.3) H 05/02/24 21:
Direct Bilirubin 1.2 mg/dl (0.0-0.4) H 05/01/24 23:18
AST 38 U/L (17-59) 05/02/24 21:
ALT 19 U/L (0-50) 05/02/24 21:29
Alkaline Phosphatase 92 U/L (38-126) 05/02/24 21:29
Total Protein 3.6 g/dl (6.3-8.2) L 05/02/24 21:
Albumin 1.5 g/dl (3.5-5.0) L 05/02/24 21:29
Physical Exam
-
No apparent distress, resting in bed comfortably
No tachycardia
Abdomen soft, rotund
Chest dressing clean, dry, intact, soft, flat. Right side tunneled location no ecchymosis or swelling noted
RP dressing dry and intact,
Groin site dressings dry, intact, soft, flat
Chest tube site intact
Doppler DP and PTs noted bilaterally
+3/4 pitting edema bilateral lower extremities
Vaughn draining minimal clear yellow urine
[2024-05-03] MEDS: LASIX 40 MG IV (08:52)
[2024-05-03 09:52] LABS: Glucose - Point of Care 116 mg/dl (70-99)
[2024-05-03] MEDS: KCL 100 IV (10:41)
[2024-05-03 11:03] LABS: Glucose - Point of Care 114 mg/dl (70-99)
[2024-05-03 11:47] LABS: Glucose - Point of Care 123 mg/dl (70-99)
--- NOTE | 2024-05-03 12:19 | PTCARENOTE ---
family present at bedside, no changes in patient's assessment. CHG and harris care completed. Asked family about code status. To be determined by family when son Mike ARAYA comes in.
[2024-05-03 13:06] LABS: Glucose - Point of Care 156 mg/dl (70-99)
[2024-05-03] MEDS: MAGNESIUM OXIDE 500 MG TUBE ×2 (13:46→19:42)
--- NOTE | 2024-05-03 14:38 | PTCARENOTE ---
reviewing plan of care with patient's daughter. patient ERCP on hold, till possible outpatient. Patient is still full code, ongoing discussion with family, daughter awaiting brother's input for decision. patient is awake, but drowsy, minimal
pain, dilaudid given once for left abdominal pain.
[2024-05-03 14:47] LABS: Glucose - Point of Care 140 mg/dl (70-99)
[2024-05-03 16:40] LABS: Potassium 4.1 mmol/L (3.5-5.1)
--- NOTE | 2024-05-03 16:43 | W.PN.HOSP.TC ---
Today's Communication/Plan
-
Assessment / Plan
Assessment / Plan
Gen-acutely ill-appearing, diaphoretic
HEENT-NC, AT, anicteric, NGT in place
Neck-supple
CV-reg, no M, +S1/S2
Lungs-clear B/L, left chest tube to waterseal
Abd-soft, ND, Vaughn catheter in place
Musculoskeletal-edema bilateral upper and lower extremities, no deformity
Skin-warm and dry, surgical sites clean dry intact
Neuro-grossly non-focal, no tremor
Psych-unable to assess
The patient was presented to ER after having 1 episode of large amount diarrhea and his CT abdomen pelvis showed probable enteritis/ileitis. The patient was admitted with a concern of probable sepsis to enteritis and he was started on Zosyn. His
diarrhea diarrhea improved but he has been having ongoing abdominal discomfort as well as constipation. Due to his persistent bacteremia with Pseudomonas aeruginosa, the patient was consulted to ID. It was recommended to have a CT angio pelvis
abdomen for possible or to be iliac stent infection. CT angio abdomen pelvis showed acute aortitis and intraluminal mass in the distal common bile duct. Vascular surgery and gastroenterology team was consulted to assist the patient. The patient
underwent an urgent surgery on 05/01/24 and her infected stent was removed and has a right axillary bifemoral artery bypass on 05/01/2024. The patient was transferred to ICU. The patient was started on vasopressor and extubated on 05/02/24.
Problem list
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
CBD mass
Sepsis secondary to AAA stent graft infection vs hepatobiliary infection vs Enteritis/Ileitis
Leukocytosis
HCARISSE
Hypertension
Chronic pain to cervical/lumbar radiculopathy
Paroxysmal atrial fibrillation
History of CAD
History of PVCs
Hx of Alcoholic cirrhosis
Hepatitis C s/p liver transplant in 2006 [facility] with with ongoing
History of multiple bile duct stents
Abdominal aortic aneurysm s/p repair at [facility]
Hyperlipidemia
Essential hypertension
COPD
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
-Hx of aorto bi iliac stent 19 years ago due AAA at [facility]
-CT angio abdomen: suggestive of acute aortitis
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
-Vascular surgery on board, reporting Reasonable graft function with dopplerable DP signals bilaterally
-Admitted ICU
-Now off vasopressors since evening of 05/02, extubated 05/02
-Pain management
-Aspirin and Plavix on hold
#Sepsis suspected secondary to AAA stent graft infection vs hepatobiliary infection vs Enteritis/Ileitis
-Continue Zosyn /pos blood cx x 2 - pseudomonas-sensitive to Zosyn
-ID on board added ciprofloxacin IV
-Cultures from 04/28 through 05/01 positive for Pseudomonas, cultures from 05/02 no growth to date
-Second blood culture 04/28 -pseud. aeruginosa// 05/02/24 blood culture pending
-Hx of bile duct stent placement-all bile duct stents removed in the past by Dr Short at [facility], per patient`s report, outpatient GI follow-up as needed, no current plans for ERCP this admission
#CBD mass
-History of liver transplantation in 2006 at [facility]-on tacrolimus
-History of multiple bile duct stents-all removed per patient report by Dr Short at [facility]
-GI on board, no plans for ERCP this admission, recommend outpatient GI follow-up
#Anemia requiring transfusions
-Suspect secondary to expected surgical blood loss
-Transfused a total of 9 units PRBCs, 2 units FFP, 1 unit of platelets this admission
-Continue to monitor hemoglobin and transfuse further as needed
-Aspirin and Plavix on hold
#Metabolic acidosis
-Continue IV fluids with bicarb
-Continue to treat infection as outlined above
# Constipation
-Abdominal d-ewv-[id number] series 04/28: Mild stool burden without obstruction findings
-Rectal rectal suppository was given on 04/29
-Miralax was given 2 dose
-No BM yet
-Monitor for BM closely
# DM
- Hba1c 7.5
- Continue SSI
- Plan starting metformin on DC
# Hyponatremia
- hypovolemic
- Continue IVF
- Follow BMP
# Acute kidney injury
-Resolved
-Cr 1.1 at likely baseline
-Hold lisinopril
#Essential hypertension
-Metoprolol on hold due low BP
- lisinopril on hold due low BP
#Paroxysmal atrial fibrillation
-Eliquis on hold by surgery
-Metoprolol on hold
-Started on heparin
# Right-sided cervical radiculopathy and lumbar radiculopathy
-Patient has some pain in his lower back suggesting lumbar radiculopathy
-Strength is preserved
#History of CAD
-Plavix on hold for now with the last dose on 05/01 am
-Statin on hold due feeding with NG tube
#History of PVCs
#Alcoholic cirrhosis
#Chronic neuropathy
-Continue pregabalin
#COPD
Currently full code, had been DNR but switched to full code for surgical procedures, family discussion ongoing regarding CODE STATUS
DVT prophylaxis- heparin
Dispo eventual DC home with HC
Anticipated Discharge: > 48 hours
Subjective/Interval History
-
Date of Service: May 03, 2024
Patient was seen and examined at bedside this morning. He is extubated and off of vasopressors. Still critically ill.
Objective Data
-
Labs:
Laboratory Results
05/03/24 05/03/24 05/03/24
04:44 16:11 20:00
WBC 26.2 H Pending
Hgb 9.0 L Pending
Hct 24.8 L Pending
Plt Count 133 Pending
Sodium 133 L Pending
Potassium 3.6 4.1 Pending
Chloride 106 Pending
Carbon Dioxide 17 L Pending
BUN 26 H Pending
Creatinine 1.3 Pending
Glucose 107 H Pending
Calcium 7.5 L Pending
Vital Signs:
Vital Signs
Temp Pulse Resp BP Pulse Ox
97.4 F 73 10 92/60 97
05/03/24 15:30 05/03/24 15:00 05/03/24 15:00 05/03/24 15:00 05/03/24 15:00
I&O
05/02/24 05/03/24 05/04/24
06:59 06:59 06:59
Intake Total 857.4 / 1911.6 8435.4 / 8567.7 1675.8 / 1675.8
Output Total 637 / 652 420.0 / 440.0 585 / 585
Balance 220.4 / 1259.6 8015.4 / 8127.7 1090.8 / 1090.8
Review of Systems
-
Unable to obtain full review of systems at this time due to: Acuity
Physical Exam
-
General: No Apparent Distress
[2024-05-03 16:49] LABS: Glucose - Point of Care 146 mg/dl (70-99)
--- NOTE | 2024-05-03 16:58 | W.PN.UPDATE ---
Update Note
Progress Note Update
Code status reviewed with the patient's son, Mike. He and his family discussed his code status, and agree with changing back to DNR/DNI. All questions were answered. Code status changed in [facility].
[2024-05-03 18:36] LABS: Glucose - Point of Care 137 mg/dl (70-99)
--- NOTE | 2024-05-03 20:00 | PTCARENOTE ---
Received pt resting in bed, drowsy but easily arousable and able to have conversation/make needs known. AAOx3. POLANCO but weak. SR on tele, HR 70s. L radial A line transduced and zeroed - not correlating with cuff. BP via A line 120s-130s/40s. +2 gen
anasarca. DP/PT pulses by doppler. Radials normal. Neurovascular checks ongoing. Afebrile. On 4L NC. Spo2 95%. Lungs dim, coarse, with rhonchi. L chest tube to h20 seal. Serosang output. No crepitus. Round, obese abd. Hypoactive bowel sounds. NG
tube to LIWS. Vaughn cath draining yellow/casey urine. See I&O. Double L cordis with bicarb gtt, insulin gtt (for glycemic protocol) infusing. Call costa in reach.
[2024-05-03 20:24] LABS: Hematocrit 24.1 % (39.0-52.0); Hemoglobin 8.9 g/dL (13.0-18.0); Mean Corp Hgb Conc. 36.9 g/dL (33.0-37.0); Mean Corpuscular Hgb 31.8 pg (27.0-31.0); Mean Corpuscular Volume 86.1 fL (80.0-94.0); Mean Platelet Volume 12.2 fL (7.4-10.4); Platelet Count 142 10^3/uL (130-400); Red Cell Dist. Width 14.9 % (11.5-14.5); White Blood Cell Count 26.8 10^3/uL (4.8-10.8)
[2024-05-03 20:42] LABS: Glucose - Point of Care 145 mg/dl (70-99)
[2024-05-03 20:48] LABS: Blood Urea Nitrogen 28 mg/dl (9-20); Calcium 7.3 mg/dl (8.4-10.2); Carbon Dioxide 22 mmol/L (22-30); Chloride 100 mmol/L (98-107); Estimated Creatinine Clearance 65 ml/min; Glucose 127 mg/dl (70-99); Magnesium 1.7 mg/dl (1.6-2.3); Phosphorus 3.7 mg/dl (2.5-4.5); Potassium 3.8 mmol/L (3.5-5.1); Sodium 130 mmol/L (135-145); eGFR 57.65
[2024-05-03 22:41] LABS: Glucose - Point of Care 139 mg/dl (70-99)
[2024-05-03] MEDS: SENNA SYRUP 17.2 MG PO (22:45)
[2024-05-04] VITALS (18 sets, daily range): BP systolic 98–135; BP diastolic 51–94; BMI 35.1
--- NOTE | 2024-05-04 00:34 | PTCARENOTE ---
Pt reassessed. Was weaned to RA and spo2 maintained >93%. However, placed back on 2L NC for comfort - mildly tachypneic. Now 96%. Dilaudid was given for abdominal pain. Pt. reports moderate relief.
[2024-05-04 00:36] LABS: Glucose - Point of Care 142 mg/dl (70-99)
[2024-05-04 02:48] LABS: Glucose - Point of Care 128 mg/dl (70-99)
[2024-05-04] MEDS: CIPRO 400 MG 200 IV (03:18)
[2024-05-04] MEDS: TYLENOL 650 MG PO (03:40)
[2024-05-04] MEDS: ZOSYN 100 IV ×4 (03:40→21:12)
[2024-05-04] MEDS: DILAUDID 0.5 MG IV ×5 (03:41→22:33)
[2024-05-04 03:42] LABS: Hematocrit 24.3 % (39.0-52.0); Hemoglobin 8.9 g/dL (13.0-18.0); Mean Corp Hgb Conc. 36.6 g/dL (33.0-37.0); Mean Corpuscular Hgb 31.8 pg (27.0-31.0); Mean Corpuscular Volume 86.8 fL (80.0-94.0); Mean Platelet Volume 12.5 fL (7.4-10.4); Platelet Count 152 10^3/uL (130-400); Red Cell Dist. Width 15.3 % (11.5-14.5)
[2024-05-04 03:51] LABS: INR 1.55; PT 18.8 Sec (11.4-14.6)
[2024-05-04 03:52] LABS: APTT 39.5 Sec (23.4-35.0)
[2024-05-04 04:06] LABS: Blood Urea Nitrogen 29 mg/dl (9-20); Calcium 7.2 mg/dl (8.4-10.2); Carbon Dioxide 24 mmol/L (22-30); Chloride 98 mmol/L (98-107); Estimated Creatinine Clearance 65 ml/min; Glucose 131 mg/dl (70-99); Magnesium 1.8 mg/dl (1.6-2.3); Phosphorus 3.7 mg/dl (2.5-4.5); Potassium 3.9 mmol/L (3.5-5.1); Sodium 131 mmol/L (135-145); eGFR 57.65
--- NOTE | 2024-05-04 04:19 | PTCARENOTE ---
Pt reassessed. Been resting calmly most of the night. Bathed with CHG, linens changed, repositioned for comfort with 3 RNs. Pt. in a lot of pain with movement - dilaudid and tylenol given. A line dsg changed due to soilage. Assessment otherwise
unchanged
[2024-05-04 04:40] LABS: Glucose - Point of Care 144 mg/dl (70-99)
[2024-05-04 06:54] LABS: Glucose - Point of Care 155 mg/dl (70-99)
--- NOTE | 2024-05-04 07:00 | PTCARENOTE ---
received patient back from overnight shift. patient rested during the night, does complain of pain with turns and repositioning. patient is on 2L nasal cannula, saturing 98%. lungs decreased, and patient does become tachypneic with pain. He is
sinus rhythm on monitor. arms and legs are edematous, +3 and pitting. right arm slightly more swollen than left. patient remains NPO, nGT to low intermittent suction. Vaughn draining clear yellow urine. urine output increasing, remains off
pressors. [place] and cuff are not correlating. Dr. Morin made aware previous shift. A-line is very positional, has been redressed. Skin as documented. post op dressings remain in place. Chest tube to water seal. will review orders.
[2024-05-04] MEDS: MAGNESIUM OXIDE 500 MG TUBE ×2 (07:32→19:44)
[2024-05-04] MEDS: PROGRAF 1.5 MG TUBE ×2 (07:32→19:44)
[2024-05-04] MEDS: PROTONIX IV 40 MG IV ×2 (07:32→19:44)
[2024-05-04] MEDS: NSS (PRESERVATIVE FREE) 10 ML IV ×2 (07:32→19:44)
[2024-05-04] MEDS: HEPARIN 5000 UNITS SC ×2 (07:32→15:29)
[2024-05-04] MEDS: SPIRIVA RESPIMAT 2.5 MCG 2 PUFF INH (07:59)
[2024-05-04] MEDS: ADVAIR HFA 45/21 MCG INHALER 2 PUFF INH ×2 (07:59→19:24)
--- NOTE | 2024-05-04 08:27 | W.PN.INTV ---
Today's Communication / Plan
Recommendations
Continue aspiration precautions
PO meds as per vascular surgery
Hold off starting tube feeds until okay per vascular surgery
Chest tube management per vascular surgery
Continue Prograf and follow-up tacrolimus level (pending)
Wean down supplemental oxygen as tolerated while keeping SpO2 88-95%
Recheck CXR tomorrow as he may be developing pulmonary vascular congestion; start diuresis if needed
Continue insulin drip with goal BG 140�180
DNR/DNI
Continue ICU level care for this critically ill patient
Assessment
-
Assessment: 73-year-old male with a past medical history of alcoholic cirrhosis with hepatitis C virus s/p liver transplantation on tacrolimus ([facility] � 2006), AAA s/p repair ([facility] � 2005), history of hepatitis, CAD with history of CT (2017)
s/p coronary stent, hypertension, COVID-19 (April 2020), paroxysmal A-fib on Eliquis and a reported history of COPD who presents with fever, runny nose, diarrhea, and reduced appetite. He was feeling unwell for 4 days prior to arrival. He has also
had a mild cough with some shortness of breath. He was diagnosed with a suspected viral enteritis after initial CT abdomen/pelvis on 04/25/2024 showed slightly prominent fluid-filled small bowel loops in the lower abdomen without perforation or
abscess seen. Of note, initial CXR showed no evidence of pneumonia. He was initially admitted to [facility] for further care. Blood cultures became positive due to Pseudomonas. He was initially started on antibiotics on 04/26/2024, and continued with
his tacrolimus. ID consulted on 04/29, and on 04/30 a CTA abdomen/pelvis was performed showing acute aortitis likely related to the aortobiiliac endograft. Given the concern for graft infection, patient was urgently brought to the OR, and on
05/01/2024 Dr. Brannon performed a right axillary bifemoral artery bypass as well as explantation of the entirety of his infected aortic endograft via retroperitoneal incision with oversewing of aortic and iliac systems and wide debridement of his
retroperitoneum. There were no immediate complications, and the patient was transferred to the ICU on the ventilator with dianeticist services consulted for additional management/recommendations. As per the RN, EBL was about 1200 cc.
Chronic conditions [employer]GER: History of alcoholic cirrhosis + HCV s/p liver transplant on tacrolimus, history of hepatitis, history of CT (2017) s/p coronary stent, history of CAD, hypertension, history of COVID-19 (04/2020), paroxysmal A-fib on Eliquis,
history of PVCs, reported history of COPD
Impression:
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
#Circulatory shock requiring vasopressors � likely sedation related as he was not on pressors prior to intubation - shock state resolved since evening of 05/02/2024
#Acute respiratory failure with hypoxia - remained intubated post-operatively likely due to the timing of the procedure that occurred very late in the evening on 05/01/2024 --> extubated 05/02/2024
#Leukocytosis with concern for leukemoid reaction
#Acute on chronic anemia due to operation above
#Acute thrombocytopenia due to operation above - platelet count now normalized
#Metabolic acidosis with preserved anion gap - acidosis now resolved
#Hyperbilirubinemia (chronic)
#Hypoalbuminemia
#Chronic hyponatremia
#DM type II (uncontrolled � HbA1c 7.5 on 04/29/2024) complicated by hyperglycemia now on insulin drip
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
#CAD with history of CT (2017) s/p coronary stent
#Hypertension
#History of COVID-19 (April 2020)
#Paroxysmal A-fib on Eliquis
#Reported history of COPD
Plan:
Postoperative surgical intensive care unit monitoring
Continue with Zosyn
Several OR cultures are now growing Pseudomonas aeruginosa; continue to follow-up remaining cultures; also follow up pathology that were collected from the OR
Continue with supplemental oxygen and wean down as tolerated while keeping SpO2 88-95%
Of note, patient is DNR/DNI and code status was only reversed for the operation on 05/01 --> family reverted back to DNR/DNI on 05/03/2024
Continue with aspiration precautions keeping HOB >30-45�
prn nebulized bronchodilators � not currently bronchospastic
Patient does use Spiriva + Advair at home � continue with Advair and change nebulized atrovent to Spiriva
Pain control
Monitor oxygen requirements as he may be developing slight pulmonary vascular congestion. May need to start diuresis. Recheck CXR again tomorrow
Neuro and vascular checks per protocol
Maintain MAP>65
Patient off Levophed since 05/02/2024
Replete electrolytes with K>4, Mg>2
NS 0.9% start today given his chronic hyponatremia � avoid fast overcorrection
Maintain euglycemia with goal BG 140-180 --> currently on insulin drip
Continue Prograf, resuming other home PO meds when ok per surgery; also no enteral nutrition as vascular surgery does not want to use the gut just yet, especially this soon after surgery
Follow up prograf level (pending)
Vascular surgery following-correspondence and operative notes reviewed
Chest tube management as per vascular surgery � currently on waterseal with no air leak on left hemithorax
Transfuse blood products as needed to keep Hb>7g/dL, and plt>50k (given post-operative status)
DVT prophylaxis: HSQ
Early nutrition when deemed ok per vascular surgery
Early mobilization when feasibile
Code status: DNR/DNI
Continue with ICU level care for this critically ill patient
Critical care statement: A total of 38 minutes of critical care time was provided for this patient today. This includes management of unstable vital signs, evaluation of the patient at bedside, reviewing the patient's pertinent medical records
including radiographs, microbiology, laboratory evaluations, and discussion with primary team, consultants, pharmacy, nutrition, physical therapy, case management, charge nurse, critical care nursing, and respiratory therapy.
Subjective Dataa
Subjective Data
Date of Service:
Date of Service: May 04, 2024
Chief Complaint: Rn Picu Follow Up
Subjective:
Patient was seen and evaluated today at bedside. He is much more awake today. He feels tired overall. Currently on insulin drip at 1.2 units/h. A-line was pulled today. Heart rate 85, saturating 96% on 2 L/min nasal cannula and BP 102/64. He
denies chest pain, QURESHI, fevers or chills. Left-sided chest tube on waterseal, with no airleak seen.
Review of Systems
General: Other (Negative unless mentioned above)
Objective Data
Data Reviewed
Vital Signs / I&O / Oxygen:
Vital Signs
Temp Pulse Resp BP Pulse Ox
97.8 F 76 22 124/64 96
05/04/24 08:00 05/04/24 08:02 05/04/24 08:02 05/04/24 08:00 05/04/24 08:02
Intake and Output
05/03/24 05/04/24 05/05/24
06:59 06:59 06:59
Intake Total 8435.4 / 8567.7 4178.3 / 4279.8 143.2 / 143.2
Output Total 420.0 / 440.0 1325 / 1375 80 / 80
Balance 8015.4 / 8127.7 2853.3 / 2904.8 63.2 / 63.2
SaO2 [A/C] 100
SaO2 96
Nasal Cannula flow liters per 2
minute
Physical Exam
General: Respiratory Distress (negative), Comfortable, Chills (negative) and Sweats (negative)
HEENT: Normocephalic and Anicteric
Cardiovascular: S1-S2, Rub (negative) and Peripheral Edema (+3 lower extremity pitting edema bilaterally)
Respiratory: Wheeze (negative), Crackles (Bibasilar), Rhonchi (negative), Non-Labored Respirations, Stridor (negative) and Chest Tube (Left-sided chest tube: Continuous waterseal with no air leak)
GI: Soft, Distended (Abdominal obesity), Non Tender and Normal Bowel Sounds
Neurology: Awake, Alert, Tremors (negative) and Other (Tired today)
Skin: Warm, Dry, Cyanosis (negative) and Jaundice (negative)
Labs/Micro/Reports
Laboratory Results
05/04/24
03:16
PT 18.8 H
INR 1.55
APTT 39.5 H
Microbiology
04/30/24 09:18 Blood/Venous Blood Culture - Preliminary
No Growth in 4 days- Final report to follow
05/01/24 20:42 Abdomen Wound Culture - Preliminary
Pseudomonas aeruginosa
05/01/24 20:42 Abdomen Gram Stain - Preliminary
05/01/24 20:42 Tissue Tissue Culture - Final
Pseudomonas aeruginosa
05/01/24 20:42 Tissue Gram Stain - Final
05/01/24 20:42 Heart Tissue Culture - Final
Pseudomonas aeruginosa
05/01/24 20:42 Heart Gram Stain - Final
05/02/24 12:54 Blood/Venous Blood Culture - Preliminary
No Growth in 24 hours- Final report to follow
04/30/24 08:50 Blood/Venous Blood Culture - Preliminary
No Growth in 72 hours- Final report to follow
05/02/24 12:37 Blood/Venous Blood Culture - Preliminary
No Growth in 24 hours- Final report to follow
05/01/24 20:42 Abdomen Anaerobic Culture - Preliminary
Culture pending. Anaerobic cultures are examined after 3
days incubation. Additional information to follow.
04/29/24 06:51 Blood/Venous Blood Culture - Preliminary
Pseudomonas aeruginosa
04/29/24 06:51 Blood/Venous Gram Stain - Preliminary
04/25/24 15:59 Blood/Venous Blood Culture - Final
Pseudomonas aeruginosa
04/25/24 15:59 Blood/Venous Gram Stain - Final
04/25/24 15:59 Blood/Venous Blood Culture - Final
Pseudomonas aeruginosa
04/25/24 15:59 Blood/Venous Gram Stain - Final
[2024-05-04 08:56] LABS: Glucose - Point of Care 133 mg/dl (70-99)
--- NOTE | 2024-05-04 09:07 | W.PN.ID1 ---
Date of Service
Date of Service: May 04, 2024
Today's Communication
- Continue Zosyn 4.5g IV q6
- stopped ciprofloxacin
- will plan a course of IV therapy followed by suppressive antibiotics
Assessment / Plan
# Sustained Pseudomonas bacteremia- source from infected stent grafts and/or biliary duct obstruction
# AAA stent graft infection.
hx AAA s/p aortobi-iliac stent graft (at [facility])
CTA: acute aortitis
# Biliary obstruction with intraluminal mass in CBD
# Leukocytosis - persists
# hx liver transplant on tacrolimus
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
- QTc has been acceptable
- 04/30 blood cultures - NGTD
- 05/02 blood cultures - NGTD
- 05/01 tissue cultures from the OR - Pseudomonas as expected
- Appreciate Vascular
- Appreciate GI - ERCP currently on hold and may be done outpatient
- Continue Zosyn 4.5g IV q6
- stopped ciprofloxacin
- will plan a course of IV therapy followed by suppressive antibiotics
# Conditions OFFICE ASST
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
Paroxysmal atrial fibrillation
CAD
Hypertension
Neuropathy
COPD
AAA s/p aortobi-iliac stent graft
Cholecystectomy
Back surgery
History of multiple bile duct stents
Chief Complaint
-: Leukocytosis and Bacteremia
Subjective / Review of Systems
improving hypothermia
bp now stable
no complaints
Vital Signs / Physical Exam
Vital Signs
Vital Signs
Temp Pulse Resp BP Pulse Ox
97.8 F 76 22 124/64 96
05/04/24 08:00 05/04/24 08:02 05/04/24 08:02 05/04/24 08:00 05/04/24 08:02
Physical Exam
Constitutional: No Acute Distress
Cardiovascular: Regular Rate and S1/S2; Negative Murmur or Rub
Pulmonary: Clear and Symmetric; Negative Wheezes or Rales
Gastrointestinal: Soft, Non Tender, Non Distended and Normal Bowel Sounds
Skin: Warm and Dry; Negative Rash or Jaundice
Physical Exam:
surgical sites x6 dressings dry, intact, minimal strike through
Objective Data
Lab Data
PT 18.8 Sec (11.4-14.6) H 05/04/24 03:16
INR 1.55 05/04/24 03:16
APTT 39.5 Sec (23.4-35.0) H 05/04/24 03:16
Estimated Creat Clear 65 ml/min 05/04/24 03:16
Lactic Acid 1.4 mmol/L (0.7-2.0) 05/02/24 08:21
Total Bilirubin 2.8 mg/dl (0.2-1.3) H 05/02/24 21:29
AST 38 U/L (17-59) 05/02/24 21:29
ALT 19 U/L (0-50) 05/02/24 21:29
Alkaline Phosphatase 92 U/L (38-126) 05/02/24 21:29
Most recent labs reviewed.
Tissue Culture Final 05/04/24-0852
Many Pseudomonas aeruginosa
CRITICAL VALUE called to and read back verification by
[id number] on 05/03/24 at 1049 by [facility]. COPY PRINTED to
printer #[id number]
Organism 1 Pseudomonas aeruginosa
1. Pseudomonas aeruginosa
M.I.C. RX
--------- ---
Aztreonam <=4 S
Cefepime <=2 S
Ceftazidime 4 S
Ciprofloxacin <=0.25 S
Meropenem <=1 S
Piperacillin/Tazobactam <=8 S
Tobramycin <=2 S
Chest X-Ray: Image Reviewed
Micro Results:
05/01/24 20:42 Wound Culture - Preliminary
Abdomen Pseudomonas aeruginosa
Gram Stain - Preliminary
05/01/24 20:42 Tissue Culture - Final
Tissue Pseudomonas aeruginosa
Gram Stain - Final
05/01/24 20:42 Tissue Culture - Final
Heart Pseudomonas aeruginosa
Gram Stain - Final
05/02/24 12:54 Blood Culture - Preliminary
Blood/Venous No Growth in 24 hours- Final report to follow
04/30/24 08:50 Blood Culture - Preliminary
Blood/Venous No Growth in 72 hours- Final report to follow
05/02/24 12:37 Blood Culture - Preliminary
Blood/Venous No Growth in 24 hours- Final report to follow
05/01/24 20:42 Anaerobic Culture - Preliminary
Abdomen Culture pending. Anaerobic cultures are examined after 3
days incubation. Additional information to follow.
04/30/24 09:18 Blood Culture - Preliminary
Blood/Venous No Growth in 72 hours- Final report to follow
04/29/24 06:51 Blood Culture - Preliminary
Blood/Venous Pseudomonas aeruginosa
Gram Stain - Preliminary
04/25/24 15:59 Blood Culture - Final
Blood/Venous Pseudomonas aeruginosa
Gram Stain - Final
04/25/24 15:59 Blood Culture - Final
Blood/Venous Pseudomonas aeruginosa
Gram Stain - Final
04/28/24 13:34 Blood Culture - Preliminary
Blood/Venous Pseudomonas aeruginosa
Gram Stain - Preliminary
04/25/24 17:36 Urine Culture - Final
Urine NO GROWTH
04/26/24 00:04 MRSA Screen - Final
Nose No Methicillin Resistant Staphylococcus aureus isolated.
04/25/24 08:58 Influenza Types A & B (NITIN) - Final
Nasal Swab Negative for Influenza A & B, NAAT
Negative results must be combined with clinical observations
and patient history.
Nucleic Acid Amplification test (NAAT)performed on the
[employer] platform.
04/28/24 CT a/p: Probable enteritis/ileus. Cannot rule out developing small bowel obstruction with questionable transition points as described.
04/28/24 Chest/abd xray: Nonobstructive bowel gas pattern. Mild colonic stool burden.
04/30/24 CT angiogram a/p: Aortobiiliac endograft in place with an interval increase in size of the [place] aneurysm sac around the endograft, interval increase in circumferential wall thickening of the [place] aneurysm, mild retroperitoneal
inflammation, and increased small retroperitoneal lymph nodes. The constellation of findings is suggestive of ACUTE AORTITIS which could be secondary to infection or inflammatory disease.
2. Moderate extrahepatic biliary dilatation with suggestion of an obstructing 1.3 cm intraluminal mass in the distal common bile duct. Diagnostic possibilities are (1) choledocholithiasis or (2) less likely bile duct cancer. Mild wall thickening
and hyperenhancement of the common hepatic and common bile ducts suggesting CHOLANGITIS.
3. Right upper quadrant liver transplant in place with mild pneumobilia in the liver.
--- NOTE | 2024-05-04 09:57 | W.PN.UPDATE ---
Update Note
Progress Note Update
Doing well
No complaints
HD stable
UOP improved
CT to water seal
Dressings clean/dry
Abd obese soft
Bilat LE pitting edema
Keep NGT
Await bowel fxn
IVF
OOB to chair
Lasix with gentle diuresis
IV ABX
[id number]
[2024-05-04] MEDS: ZOSYN IV (10:36)
[2024-05-04 11:07] LABS: Glucose - Point of Care 141 mg/dl (70-99)
--- NOTE | 2024-05-04 12:30 | PTCARENOTE ---
No change in patient's assessment. continuing to turn and reposition, ongoing glycemic protocol, accu check q2 hours.
[2024-05-04 12:45] LABS: Glucose - Point of Care 149 mg/dl (70-99)
[2024-05-04] MEDS: NSS 1000 IV (14:19)
--- NOTE | 2024-05-04 14:55 | PTCARENOTE ---
Order obtained to advance NGT about 10cm. Also spoke with Dr. Vaughn regarding patient's A-line. Line has been positional and not correlating with cuff. Order placed to discontinue left radial erma. Continuing to turn and reposition patient
[id number]. patient continues to be drowsy, answering questions appropriately.
[2024-05-04 15:11] LABS: Glucose - Point of Care 116 mg/dl (70-99)
[2024-05-04 16:44] LABS: Glucose - Point of Care 113 mg/dl (70-99)
--- NOTE | 2024-05-04 17:02 | W.PN.HOSP.TC ---
Today's Communication/Plan
-
Assessment / Plan
Assessment / Plan
Evz-cyo-bmykrbplq, somnolent but arousable
HEENT-NC, AT, anicteric, NGT in place
Neck-supple
CV-reg, no M, +S1/S2
Lungs-clear B/L, left chest tube to waterseal
Abd-soft, ND, Vaughn catheter in place, surgical dressing with minimal strikethrough
Musculoskeletal-edema bilateral upper and lower extremities, no deformity
Skin-warm and dry, surgical sites clean with minimal strikethrough
Neuro-grossly non-focal, no tremor
Psych-unable to assess
The patient was presented to ER after having 1 episode of large amount diarrhea and his CT abdomen pelvis showed probable enteritis/ileitis. The patient was admitted with a concern of probable sepsis to enteritis and he was started on Zosyn. His
diarrhea diarrhea improved but he has been having ongoing abdominal discomfort as well as constipation. Due to his persistent bacteremia with Pseudomonas aeruginosa, the patient was consulted to ID. It was recommended to have a CT angio pelvis
abdomen for possible or to be iliac stent infection. CT angio abdomen pelvis showed acute aortitis and intraluminal mass in the distal common bile duct. Vascular surgery and gastroenterology team was consulted to assist the patient. The patient
underwent an urgent surgery on 05/01/24 and her infected stent was removed and has a right axillary bifemoral artery bypass on 05/01/2024. The patient was transferred to ICU. The patient was started on vasopressor and extubated on 05/02/24.
Problem list
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
CBD mass
Sepsis secondary to AAA stent graft infection vs hepatobiliary infection vs Enteritis/Ileitis
Leukocytosis
CHARISSE
Hypertension
Chronic pain to cervical/lumbar radiculopathy
Paroxysmal atrial fibrillation
History of CAD
History of PVCs
Hx of Alcoholic cirrhosis
Hepatitis C s/p liver transplant in 2006 [facility] with with ongoing
History of multiple bile duct stents
Abdominal aortic aneurysm s/p repair at [facility] [place]
Hyperlipidemia
Essential hypertension
COPD
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
-Hx of aorto bi iliac stent 19 years ago due AAA at [facility] [place]
-CT angio abdomen: suggestive of acute aortitis
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
-Vascular surgery on board, reporting Reasonable graft function with dopplerable DP signals bilaterally
-Admitted ICU
-Now off vasopressors since evening of 05/02, extubated 05/02
-Pain management
-Aspirin and Plavix on hold
#Sepsis suspected secondary to AAA stent graft infection vs hepatobiliary infection vs Enteritis/Ileitis
-Continue Zosyn /pos blood cx x 2 - pseudomonas-sensitive to Zosyn
-ID on board, discontinued ciprofloxacin
-Cultures from 04/28 through 05/01 positive for Pseudomonas, cultures from 05/02 no growth to date
-Hx of bile duct stent placement-all bile duct stents removed in the past by Dr Sohrt at [facility] [place], per patient`s report, outpatient GI follow-up as needed, no current plans for ERCP this admission
#CBD mass
-History of liver transplantation in 2006 at [facility] [place]-on tacrolimus
-History of multiple bile duct stents-all removed per patient report by Dr Short at [facility] [place]
-GI on board, no plans for ERCP this admission, recommend outpatient GI follow-up
#Anemia requiring transfusions
-Suspect secondary to expected surgical blood loss
-Transfused a total of 9 units PRBCs, 2 units FFP, 1 unit of platelets this admission
-Continue to monitor hemoglobin and transfuse further as needed
-Aspirin and Plavix on hold
#Metabolic acidosis
-Resolved e
# Constipation
-Abdominal g-los-jnijirwavhj series 04/28: Mild stool burden without obstruction findings
-Rectal rectal suppository was given on 04/29
-Continue bowel regimen
-Await return of bowel function
# DM
- Hba1c 7.5
- Continue SSI
- Plan starting metformin on DC
# Hyponatremia
- hypovolemic
- Continue IVF
- Follow BMP
# Acute kidney injury
-Resolved
-Cr 1.1 at likely baseline
-Hold lisinopril
#Essential hypertension
-Metoprolol on hold due low BP
- lisinopril on hold due low BP
#Paroxysmal atrial fibrillation
-Eliquis on hold by surgery
-Metoprolol on hold
-Started on heparin
# Right-sided cervical radiculopathy and lumbar radiculopathy
-Patient has some pain in his lower back suggesting lumbar radiculopathy
-Strength is preserved
#History of CAD
-Plavix on hold for now with the last dose on 05/01 am
-Statin on hold due feeding with NG tube
#History of PVCs
#Alcoholic cirrhosis
#Chronic neuropathy
-Continue pregabalin
#COPD
DNR
DVT prophylaxis- heparin
Dispo eventual DC home with HC
Anticipated Discharge: > 48 hours
Subjective/Interval History
-
Date of Service: May 04, 2024
Patient was seen and examined at bedside this morning. Family present. Blood pressure low but stable off vasopressors. CODE STATUS returned to DNR per family.
Objective Data
-
Vital Signs:
Vital Signs
Temp Pulse Resp BP Pulse Ox
97.7 F 81 21 102/64 95
05/04/24 15:39 05/04/24 15:00 05/04/24 15:00 05/04/24 15:00 05/04/24 15:00
I&O
05/03/24 05/04/24 05/05/24
06:59 06:59 06:59
Intake Total 8435.4 / 8567.7 4178.3 / 4279.8 800.0 / 800.0
Output Total 420.0 / 440.0 1325 / 1375 545 / 545
Balance 8015.4 / 8127.7 2853.3 / 2904.8 255.0 / 255.0
Review of Systems
-
Unable to obtain full review of systems at this time due to: Acuity
Physical Exam
-
General: Appears Chronically Ill
[2024-05-04 18:51] LABS: Glucose - Point of Care 135 mg/dl (70-99)
--- NOTE | 2024-05-04 20:00 | PTCARENOTE ---
Received pt resting in bed. Drowsy but easily arousable, flat affect, AAOx3. [place] - hearing aids in. POLANCO but weak. SR on tele, HR 90s. BP 100s-110s/60s. +4 pitting gen anasarca. Extremities elevated on pillows. DP pulses weakly palpable, PTs by
doppler. Radials normal. Neurovascular checks ongoing. Afebrile. On 2L NC. Spo2 95%. Lungs dim, coarse. L chest tube to h20 seal. Straw output in tubing. No crepitus. Round, obese abd. Hypoactive bowel sounds. NG tube to LIWS. Vaughn cath draining
yellow/casey urine. Scrotal edema. See I&O. Double L cordis with NS @ 75ml/hr, insulin gtt (for glycemic protocol) infusing. Call costa in reach. Turning q2.
[2024-05-04 20:35] LABS: Hematocrit 26.3 % (39.0-52.0); Hemoglobin 9.6 g/dL (13.0-18.0); Mean Corp Hgb Conc. 36.5 g/dL (33.0-37.0); Mean Corpuscular Hgb 32.2 pg (27.0-31.0); Mean Corpuscular Volume 88.3 fL (80.0-94.0); Mean Platelet Volume 11.8 fL (7.4-10.4); Platelet Count 172 10^3/uL (130-400); Red Blood Cell Count 2.98 10^6/uL (4.70-6.10); Red Cell Dist. Width 15.4 % (11.5-14.5); White Blood Cell Count 23.8 10^3/uL (4.8-10.8)
[2024-05-04 20:46] LABS: Glucose - Point of Care 109 mg/dl (70-99)
[2024-05-04 20:52] LABS: Blood Urea Nitrogen 27 mg/dl (9-20); Carbon Dioxide 25 mmol/L (22-30); Chloride 103 mmol/L (98-107); Estimated Creatinine Clearance 71 ml/min; Glucose 105 mg/dl (70-99); Magnesium 1.7 mg/dl (1.6-2.3); Phosphorus 3.3 mg/dl (2.5-4.5); Potassium 3.6 mmol/L (3.5-5.1); Sodium 132 mmol/L (135-145); eGFR > 60.00
[2024-05-04] MEDS: OFIRMEV 100 IV (21:10)
--- NOTE | 2024-05-04 21:24 | PTCARENOTE ---
Received pt resting in bed. Drowsy but easily arousable, flat affect, AAOx2- unsure of time. Forgetful. [place] - hearing aids in. POLANCO but weak. SR on tele, HR 90s. BP 100s-110s/60s. +4 pitting gen anasarca. Extremities elevated on pillows. DP pulses
weakly palpable, PTs by doppler. Radials normal. Neurovascular checks ongoing. Afebrile. On 2L NC. Spo2 95%. Lungs dim, coarse. L chest tube to h20 seal. Straw output in tubing. No crepitus. Round, obese abd. Hypoactive bowel sounds. NG tube to
LIWS. Vaughn cath draining yellow/casey urine. Scrotal edema. See I&O. Double L cordis with NS @ 75ml/hr, insulin gtt (for glycemic protocol) infusing. Call costa in reach. Turning q2.
--- NOTE | 2024-05-04 22:38 | PTCARENOTE ---
Pt. found in bed with gown half off, NG tube pulled out, tele leads pulled off, O2 NC out. Pt. cannot tell me where he is right now. Explained situation to pt. and that NG tube has to be reinserted. Attempted multiple times with multiple staff
members to insert NG but pt. thrashing in bed and screaming. Wrist restraints applied. Unsuccessful insertion of NG. GUILLERMO Swan at bedside- Dr. Vaughn notified. OK to leave NG tube out. Chest tube and L cordis remain intact. Dilaudid given for
pain. Monitoring closely
--- NOTE | 2024-05-04 22:43 | W.PN.UPDATE ---
Update Note
Progress Note Update
05/04/24
2229- Updated Dr. Vaughn, vascular surgeon that patient had pulled out his nasogastric tube. Nursing was having a difficult time placing back NGT due to patient refusal and becoming combative when they attempted to replace the NGT. Patient became
hypoxemic due to exertion and also had some nose bleeding. Dr. Vaughn agreed that NGT can remain out at this time.
[2024-05-04 23:17] LABS: Glucose - Point of Care 132 mg/dl (70-99)
[2024-05-05] VITALS (21 sets, daily range): BP systolic 94–149; BP diastolic 55–110; PULSE 115; BMI 35.4
[2024-05-05] MEDS: HEPARIN 5000 UNITS SC ×3 (01:06→16:57)
[2024-05-05 01:15] LABS: Glucose - Point of Care 124 mg/dl (70-99)
[2024-05-05 03:18] LABS: Glucose - Point of Care 104 mg/dl (70-99)
[2024-05-05] MEDS: NOVOLIN R INSULIN INFUSION 100 IV (03:26)
[2024-05-05] MEDS: ZOSYN 100 IV ×2 (03:27→09:46)
[2024-05-05] MEDS: NSS 1000 IV (03:39)
[2024-05-05] MEDS: OFIRMEV 100 IV ×3 (03:48→18:15)
[2024-05-05 03:53] LABS: Hematocrit 25.6 % (39.0-52.0); Mean Corp Hgb Conc. 35.2 g/dL (33.0-37.0); Mean Corpuscular Hgb 31.3 pg (27.0-31.0); Mean Corpuscular Volume 88.9 fL (80.0-94.0); Mean Platelet Volume 11.8 fL (7.4-10.4); Platelet Count 162 10^3/uL (130-400); Red Blood Cell Count 2.88 10^6/uL (4.70-6.10); Red Cell Dist. Width 15.3 % (11.5-14.5); White Blood Cell Count 24.9 10^3/uL (4.8-10.8)
[2024-05-05] MEDS: DILAUDID 0.5 MG IV (04:12)
[2024-05-05 04:18] LABS: INR 1.33; PT 16.8 Sec (11.4-14.6)
[2024-05-05 04:19] LABS: APTT 36.6 Sec (23.4-35.0)
[2024-05-05 04:24] LABS: ALT (SGPT) 23 U/L (0-50); AST (SGOT) 49 U/L (17-59); Albumin 1.8 g/dl (3.5-5.0); Alkaline Phosphatase 164 U/L (38-126); Blood Urea Nitrogen 28 mg/dl (9-20); Calcium 7.3 mg/dl (8.4-10.2); Carbon Dioxide 27 mmol/L (22-30); Chloride 103 mmol/L (98-107); Direct Bilirubin 1.2 mg/dl (0.0-0.4); Estimated Creatinine Clearance 66 ml/min; Glucose 99 mg/dl (70-99); Magnesium 1.9 mg/dl (1.6-2.3); Phosphorus 3.5 mg/dl (2.5-4.5); Potassium 3.8 mmol/L (3.5-5.1); Sodium 133 mmol/L (135-145); Total Bilirubin 2.2 mg/dl (0.2-1.3); Total Protein 3.7 g/dl (6.3-8.2); Triglycerides 90 mg/dl (10-149); eGFR 57.65
--- NOTE | 2024-05-05 04:46 | PTCARENOTE ---
Medicated for pain with ofirmev and dilaudid throughout night. Pt. been resting calmly the last few hours. In good spirits at times but other times wants no help from staff or to be repositioned- he screams 'stop.' Educated on need for cares/turns.
Bathed with CHG. AM labs drawn.
[2024-05-05 05:25] LABS: Glucose - Point of Care 119 mg/dl (70-99)
[2024-05-05 07:24] LABS: Glucose - Point of Care 114 mg/dl (70-99)
[2024-05-05] MEDS: SPIRIVA RESPIMAT 2.5 MCG 2 PUFF INH (07:48)
[2024-05-05] MEDS: ADVAIR HFA 45/21 MCG INHALER 2 PUFF INH ×2 (07:51→19:50)
[2024-05-05] MEDS: MAGNESIUM OXIDE 500 MG TUBE (08:04)
[2024-05-05] MEDS: NSS (PRESERVATIVE FREE) 10 ML IV ×2 (08:04→21:40)
[2024-05-05] MEDS: PROGRAF 1.5 MG TUBE (08:05)
[2024-05-05] MEDS: PROTONIX IV 40 MG IV ×2 (08:05→21:40)
[2024-05-05] MEDS: DULCOLAX 10 MG RECTAL (08:11)
--- NOTE | 2024-05-05 08:38 | PN.DE.MGMTRT ---
Insulin Management
- -
05/05/2024: Diabetes Management follow up
73 year old male with extensive PMH including: Paroxysmal A-Fib, CAD, PVCs, alcoholic cirrhosis, hepatitis C s/p liver transplant in 2006 (on immunosuppression), multiple bile duct stents, AAA s/p repair in 2004, HTN, HLD, COPD chronic tobacco use
and T2DM.
Pt presented to the hospital with fever/chills, decreased oral intake and diarrhea. Pt has been here for ~6 days. Was noted for worsening abdominal pain.
CT A/P--> enteritis/ileus. Admission blood cultures + Pseudomonas. CT angio showed significant concern for infected aortic endograft and questionable distal common bile duct stone vs mass vs sludge. Pt underwent Right axillary bifemoral artery
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 Of note, he was taking Metformin 500 mg daily. A1C 7.5%, Cr 1.1, eGFR >60
Pt awake, alert, sitting up in bed, offers no complaints. Able to discuss diabetes care plan.
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
Pt was initiated on critical care glycemic protocol target glucose range 140 to 180mg/dL.
He remains NPO and on insulin infusion, glucose 104 to 124, requiring 0.7 to 1.2 units of insulin/hr
Will transition off continuous insulin infusion. Give Lantus 15 units NOW. Turn drip off 1 hr after giving Lantus
Start moderate corrective Q6 hrs. Will cont to follow. Discussed with ICU team and nurse.
Diabetes History
- -
Type of Diabetes: 2 requiring insulin
Pre-Admission Diabetes Regimen
05/04/24 05/05/24
20:27 03:38
Creatinine 1.2 1.3
Lab Results
Hemoglobin A1c 7.5 % (4.0-5.6) H 04/29/24 06:51
Insulin Pump Settings
IP Diabetes Regimen
05/04/24 05/04/24 05/04/24
08:40 10:46 12:25
Glucose
POC Glucose 133 H 141 H 149 H
05/04/24 05/04/24 05/04/24
14:49 16:33 18:40
Glucose
POC Glucose 116 H 113 H 135 H
05/04/24 05/04/24 05/04/24
20:27 20:34 23:04
Glucose 105 H
POC Glucose 109 H 132 H
05/05/24 05/05/24 05/05/24
01:03 03:07 03:38
Glucose 99
POC Glucose 124 H 104 H
05/05/24 05/05/24
05:14 07:13
Glucose
POC Glucose 119 H 114 H
Meal type: Breakfast
Meal type: Dinner
Patient Education
[2024-05-05 09:08] LABS: Glucose - Point of Care 117 mg/dl (70-99)
--- NOTE | 2024-05-05 09:20 | W.PN.VS ---
Addendum entered and electronically signed by Gamaliel Vaughn III, MD 05/05/24 18:03:
This patient was seen and examined in collaboration with GUILLERMO Moser. I agree with the history and physical exam as well as the assessment and plan.
Signed:
Gamaliel Vaughn III, MD
[facility] Vascular Surgery
[phone] (pshu)
Original Note:
Today's Communication / Plan
-
Patient seen and examined at bedside with Dr. Gamaliel Vaughn III, below plan reviewed with attending.
Assessment/Plan
-
POD 3 Right axillary bifemoral artery bypass with 8 mm ringed [place] Propaten graft.
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
Plan:
-Given +3 bilateral lower extremity edema will give IV Lasix dose x 1
-Will continue chest tube to waterseal, increased output overnight
-Keep n.p.o., keep Vaughn catheter
-Antibiotics per ID
-Remain in ICU
Subjective Data
-
Date of Service: May 05, 2024
Patient seen and examined at bedside, reports adequate postoperative pain management. Denies nausea, vomit, fever, and chills. Patient does endorse that he removed NG tube overnight by accident.
Objective Data
-
Vital Signs
Temp Pulse Resp BP Pulse Ox
97.4 F 100 18 149/76 96
05/05/24 07:38 05/05/24 07:54 05/05/24 07:54 05/05/24 07:00 05/05/24 07:54
Intake and Output
05/04/24 05/05/24 05/06/24
06:59 06:59 06:59
Intake Total 4178.3 / 4279.8 2702.9 / 2779.1 228.6 / 228.6
Output Total 1325 / 1375 1545 / 1645 360 / 360
Balance 2853.3 / 2904.8 1157.9 / 1134.1 -131.4 / -131.4
Intake:
IV fluids (Total) 3518.3 / 3559.8 2192.9 / 2269.1 228.6 / 228.6
INSULIN 38.3 / 39.8 32.9 / 34.1 3.6 / 3.6
KVO 600 / 640 960 / 960
Nss 1,000 ml @ 75 mls/hr IV . 1200 / 1275 225 / 225
[id number] PETE Rx#:[id number]
Sterile Water For Injection 2880 / 2880
1000 ml 1,000 ml @ 120 mls/hr
IV .Q9H35M PETE with Sodium
Bicarbonate 150 Meq Rx#:
[id number]
IV piggybacks 600 / 600 400 / 400
Amount instilled into GI Tube ( 60 / 120 110 / 110
Total)
Comal Sump 60 / 120 110 / 110
Output:
CT Output (Total)
Left Lateral
Urine, Vaughn 1235 / 1285 1340 / 1440 360 / 360
Lab Results
05/05/24 03:38
05/05/24 03:38
Calcium 7.3 mg/dl (8.4-10.2) L 05/05/24 03:38
Phosphorus 3.5 mg/dl (2.5-4.5) 05/05/24 03:38
Magnesium 1.9 mg/dl (1.6-2.3) 05/05/24 03:38
Total Bilirubin 2.2 mg/dl (0.2-1.3) H 05/05/24 03:38
Direct Bilirubin 1.2 mg/dl (0.0-0.4) H 05/05/24 03:38
AST 49 U/L (17-59) 05/05/24 03:38
ALT 23 U/L (0-50) 05/05/24 03:38
Alkaline Phosphatase 164 U/L (38-126) H 05/05/24 03:38
Total Protein 3.7 g/dl (6.3-8.2) L 05/05/24 03:38
Albumin 1.8 g/dl (3.5-5.0) L 05/05/24 03:38
Physical Exam
-
No apparent distress, resting in bed comfortably
No tachycardia
Abdomen soft, rotund
Chest dressing removed site CDI, right side tunneled location no ecchymosis or swelling noted
RP dressing removed, marija well-approximated and site CDI
Bilateral groin dressings removed, marija well-approximated and site CDI, bilateral groin sites redressed
Chest tube site intact, dressing changed
Doppler DP and PTs noted bilaterally
+3/4 pitting edema bilateral lower extremities
Vaughn draining minimal clear yellow urine
[2024-05-05] MEDS: LASIX 40 MG IV ×2 (09:55→16:56)
--- NOTE | 2024-05-05 11:25 | W.PN.ID1 ---
Date of Service
Date of Service: May 05, 2024
Today's Communication
Continue antibiotic therapy. Transition Zosyn to cefepime.
Assessment / Plan
# Sustained Pseudomonas bacteremia- source from infected stent grafts and/or biliary duct obstruction
# AAA stent graft infection.
hx AAA s/p aortobi-iliac stent graft (at [facility])
CTA: acute aortitis
# Biliary obstruction with intraluminal mass in CBD
# Leukocytosis - persists
# Hx liver transplant; on tacrolimus
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
- QTc has been acceptable
- 04/30 blood cultures - NGTD
- 05/02 blood cultures - NGTD
- 05/01 tissue cultures from the OR - Pseudomonas
- Appreciate Vascular
- Appreciate GI - ERCP currently on hold and may be done outpatient
- Transition zosyn to cefepime 2 gm IV q12h
- will plan a course of IV therapy followed by suppressive antibiotics
# Conditions [employer]
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
Paroxysmal atrial fibrillation
CAD
Hypertension
Neuropathy
COPD
AAA s/p aortobi-iliac stent graft
Cholecystectomy
Back surgery
History of multiple bile duct stents
Chief Complaint
-: Leukocytosis and Bacteremia
Subjective / Review of Systems
Review of Systems: No Fever and No Chills
Vital Signs / Physical Exam
Vital Signs
Vital Signs
Temp Pulse Resp BP Pulse Ox
97.4 F 126 30 99/79 100
05/05/24 07:38 05/05/24 10:05 05/05/24 10:05 05/05/24 10:05 05/05/24 10:00
Physical Exam
Constitutional: No Acute Distress, Comfortable and Chronically Ill
Cardiovascular: Regular Rate and S1/S2; Negative Murmur or Rub
Pulmonary: Clear, Symmetric and Other (left CT in place); Negative Wheezes or Rales
Gastrointestinal: Soft, Non Tender, Non Distended and Normal Bowel Sounds
Skin: Warm and Dry; Negative Rash or Jaundice
Psychological: Confused
Physical Exam:
surgical sites x6 dressings dry, intact, minimal strike through
Objective Data
Lab Data
Lab Results
05/05/24 03:38
05/05/24 03:38
PT 16.8 Sec (11.4-14.6) H 05/05/24 03:38
INR 1.33 05/05/24 03:38
APTT 36.6 Sec (23.4-35.0) H 05/05/24 03:38
Estimated Creat Clear 66 ml/min 05/05/24 03:38
Lactic Acid 1.4 mmol/L (0.7-2.0) 05/02/24 08:21
Total Bilirubin 2.2 mg/dl (0.2-1.3) H 05/05/24 03:38
AST 49 U/L (17-59) 05/05/24 03:38
ALT 23 U/L (0-50) 05/05/24 03:38
Alkaline Phosphatase 164 U/L (38-126) H 05/05/24 03:38
Most recent labs reviewed.
Micro Results:
05/01/24 20:42 Anaerobic Culture - Preliminary
Abdomen Culture pending. Anaerobic cultures are examined after 3
days incubation. Additional information to follow.
04/29/24 06:51 Blood Culture - Final
Blood/Venous Pseudomonas aeruginosa
Gram Stain - Final
04/28/24 13:34 Blood Culture - Final
Blood/Venous Pseudomonas aeruginosa
Gram Stain - Final
04/30/24 09:18 Blood Culture - Final
Blood/Venous No Growth - Final Report
05/02/24 12:54 Blood Culture - Preliminary
Blood/Venous No Growth in 48 hours- Final report to follow
04/30/24 08:50 Blood Culture - Preliminary
Blood/Venous No Growth in 4 days- Final report to follow
05/02/24 12:37 Blood Culture - Preliminary
Blood/Venous No Growth in 48 hours- Final report to follow
05/01/24 20:42 Wound Culture - Preliminary
Abdomen Pseudomonas aeruginosa
Gram Stain - Preliminary
05/01/24 20:42 Tissue Culture - Final
Tissue Pseudomonas aeruginosa
Gram Stain - Final
05/01/24 20:42 Tissue Culture - Final
Heart Pseudomonas aeruginosa
Gram Stain - Final
04/25/24 15:59 Blood Culture - Final
Blood/Venous Pseudomonas aeruginosa
Gram Stain - Final
04/25/24 15:59 Blood Culture - Final
Blood/Venous Pseudomonas aeruginosa
Gram Stain - Final
04/25/24 17:36 Urine Culture - Final
Urine NO GROWTH
04/26/24 00:04 MRSA Screen - Final
Nose No Methicillin Resistant Staphylococcus aureus isolated.
04/25/24 08:58 Influenza Types A & B (NITIN) - Final
Nasal Swab Negative for Influenza A & B, NAAT
Negative results must be combined with clinical observations
and patient history.
Nucleic Acid Amplification test (NAAT)performed on the
[employer] platform.
04/28/24 CT a/p: Probable enteritis/ileus. Cannot rule out developing small bowel obstruction with questionable transition points as described.
04/28/24 Chest/abd xray: Nonobstructive bowel gas pattern. Mild colonic stool burden.
04/30/24 CT angiogram a/p: Aortobiiliac endograft in place with an interval increase in size of the [place] aneurysm sac around the endograft, interval increase in circumferential wall thickening of the [place] aneurysm, mild retroperitoneal
inflammation, and increased small retroperitoneal lymph nodes. The constellation of findings is suggestive of ACUTE AORTITIS which could be secondary to infection or inflammatory disease.
2. Moderate extrahepatic biliary dilatation with suggestion of an obstructing 1.3 cm intraluminal mass in the distal common bile duct. Diagnostic possibilities are (1) choledocholithiasis or (2) less likely bile duct cancer. Mild wall thickening
and hyperenhancement of the common hepatic and common bile ducts suggesting CHOLANGITIS.
3. Right upper quadrant liver transplant in place with mild pneumobilia in the liver.
[2024-05-05 11:35] LABS: Glucose - Point of Care 122 mg/dl (70-99)
--- NOTE | 2024-05-05 11:51 | PTCARENOTE ---
Pt uncooperative with repositioning/care. C/o abdominal pain but when questioned pt reported needing to have bm (after suppository this morning). Pt agitated and restless, hr 140s with rr 30 and pursed lip breathing while sitting on bedpan. Pt
did eventually have bm and was aggressive when attempting to clean up. Additional staff in to help and pt cleaned up for large bm, hr in 100s after care completed. Sats 89-90% on room air, improved to 94% on 2lnc. Pt has been diuresing after
lasix dose this morning. Otherwise please refer to work list.
[2024-05-05] MEDS: LANTUS 0.15 UNITS SC (12:06)
[2024-05-05] MEDS: NOVOLOG FLEXPEN-MODERATE RESISTANCE SC ×2 (12:25→17:52)
[2024-05-05] MEDS: KCL 50 IV (12:25)
--- NOTE | 2024-05-05 12:37 | W.PN.HOSP.TC ---
Today's Communication/Plan
-
* TRANSLATOR DEAF consult.
* Can transition to oral tablets.
* Abx narrow to cefepime.
Assessment / Plan
Assessment / Plan
The patient was presented to ER after having 1 episode of large amount diarrhea and his CT abdomen pelvis showed probable enteritis/ileitis. The patient was admitted with a concern of probable sepsis to enteritis and he was started on Zosyn. His
diarrhea diarrhea improved but he has been having ongoing abdominal discomfort as well as constipation. Due to his persistent bacteremia with Pseudomonas aeruginosa, the patient was consulted to ID. It was recommended to have a CT angio pelvis
abdomen for possible or to be iliac stent infection. CT angio abdomen pelvis showed acute aortitis and intraluminal mass in the distal common bile duct. Vascular surgery and gastroenterology team was consulted to assist the patient. The patient
underwent an urgent surgery on 05/01/24 and her infected stent was removed and has a right axillary bifemoral artery bypass on 05/01/2024. The patient was transferred to ICU. The patient was started on vasopressor and extubated on 05/02/24.
Problem list
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
CBD mass
Sepsis secondary to AAA stent graft infection vs hepatobiliary infection vs Enteritis/Ileitis
Leukocytosis
CHARISSE
Hypertension
Chronic pain to cervical/lumbar radiculopathy
Paroxysmal atrial fibrillation
History of CAD
History of PVCs
Hx of Alcoholic cirrhosis
Hepatitis C s/p liver transplant in 2006 and [facility] with with ongoing
History of multiple bile duct stents
Abdominal aortic aneurysm s/p repair at [facility]
Hyperlipidemia
Essential hypertension
COPD
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
-Hx of aorto bi iliac stent 19 years ago due AAA at [facility]
-CT angio abdomen: suggestive of acute aortitis
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
-Vascular surgery on board, reporting Reasonable graft function with dopplerable DP signals bilaterally
-Admitted ICU
-Now off vasopressors since evening of 05/02, extubated 05/02
-Pain management
-Aspirin and Plavix on hold
#Sepsis suspected secondary to AAA stent graft infection vs hepatobiliary infection vs Enteritis/Ileitis
-Continue Zosyn /pos blood cx x 2 - pseudomonas-sensitive to Zosyn
-ID on board, discontinued ciprofloxacin
-Cultures from 04/28 through 05/01 positive for Pseudomonas, cultures from 05/02 no growth to date
-Hx of bile duct stent placement-all bile duct stents removed in the past by Dr Short at [facility], per patient`s report, outpatient GI follow-up as needed, no current plans for ERCP this admission
#CBD mass
-History of liver transplantation in 2006 at [facility]-on tacrolimus
-History of multiple bile duct stents-all removed per patient report by Dr Short at [facility]
-GI on board, no plans for ERCP this admission, recommend outpatient GI follow-up
#Anemia requiring transfusions
-Suspect secondary to expected surgical blood loss
-Transfused a total of 9 units PRBCs, 2 units FFP, 1 unit of platelets this admission
-Continue to monitor hemoglobin and transfuse further as needed
-Aspirin and Plavix on hold
#Metabolic acidosis
-Resolved e
# Constipation
-Abdominal [id number] series 04/28: Mild stool burden without obstruction findings
-Rectal rectal suppository was given on 04/29
-Continue bowel regimen
-Await return of bowel function
# DM
- Hba1c 7.5
- Continue SSI
- Plan starting metformin on DC
# Hyponatremia
- hypovolemic
- Continue IVF
- Follow BMP
# Acute kidney injury
-Resolved
-Cr 1.1 at likely baseline
-Hold lisinopril
#Essential hypertension
-Metoprolol on hold due low BP
- lisinopril on hold due low BP
#Paroxysmal atrial fibrillation
-Eliquis on hold by surgery
-Metoprolol on hold
-Started on heparin
# Right-sided cervical radiculopathy and lumbar radiculopathy
-Patient has some pain in his lower back suggesting lumbar radiculopathy
-Strength is preserved
#History of CAD
-Plavix on hold for now with the last dose on 05/01 am
-Statin on hold due feeding with NG tube
#History of PVCs
#Alcoholic cirrhosis
#Chronic neuropathy
-Continue pregabalin
#COPD
DNR
DVT prophylaxis- heparin
Dispo eventual DC home with HC
Anticipated Discharge: > 48 hours
Subjective/Interval History
-
Date of Service: May 05, 2024
Tolerating oral meds. Relatively confused this morning.
Objective Data
-
Labs:
Laboratory Results
05/05/24
03:38
WBC 24.9 H
Hgb 9.0 L
Hct 25.6 L
Plt Count 162
PT 16.8 H
INR 1.33
APTT 36.6 H
Sodium 133 L
Potassium 3.8
Chloride 103
Carbon Dioxide 27
BUN 28 H
Creatinine 1.3
Glucose 99
Calcium 7.3 L
Total Bilirubin 2.2 H
AST 49
ALT 23
Alkaline Phosphatase 164 H
Vital Signs:
Vital Signs
Temp Pulse Resp BP Pulse Ox
97.4 F 119 26 120/67 93
05/05/24 07:38 05/05/24 11:35 05/05/24 11:35 05/05/24 11:35 05/05/24 11:35
I&O
05/04/24 05/05/24 05/06/24
06:59 06:59 06:59
Intake Total 4178.3 / 4279.8 2702.9 / 2779.1 446.0 / 446.0
Output Total 1325 / 1375 1545 / 1645 760 / 760
Balance 2853.3 / 2904.8 1157.9 / 1134.1 -314.0 / -314.0
Review of Systems
-
History Source: Patient
All other systems: Reviewed and negative
Physical Exam
-
General: Appears Chronically Ill
HEENT: Normocephalic and Atraumatic
Respiratory: Crackles and Non Labored Respirations
Cardiac: Regular Rhythm, S1/S2 and Other (chest tube intact)
GI: Other (generalized edema)
Genito-urinary: No Costovertebral Tender
Musculoskeletal: No Clubbing, No Cyanosis, Edema, Right Lower Extrem and Edema, Left Lower Extrem
Skin: Warm, Dry and IV Access / Catheter Site
Neuro: Awake
Hematologic / Lymphatic: No Lymphadenopathy
Psych: Calm
--- NOTE | 2024-05-05 14:27 | W.PN.INTV ---
Today's Communication / Plan
Recommendations
-Check Tacrolimus level and adjust dose accordingly
-LFTs in AM
-Replace Kcl
-Increase diuresis, Lasix 40 mg IV bid, patient volume overloaded
Assessment
-
Assessment: 73-year-old male with a past medical history of alcoholic cirrhosis with hepatitis C virus s/p liver transplantation on tacrolimus ([facility] � 2006), AAA s/p repair ([facility] � 2005), history of hepatitis, CAD with history of SC (2017)
s/p coronary stent, hypertension, COVID-19 (April 2020), paroxysmal A-fib on Eliquis and a reported history of COPD who presents with fever, runny nose, diarrhea, and reduced appetite. He was feeling unwell for 4 days prior to arrival. He has also
had a mild cough with some shortness of breath. He was diagnosed with a suspected viral enteritis after initial CT abdomen/pelvis on 04/25/2024 showed slightly prominent fluid-filled small bowel loops in the lower abdomen without perforation or
abscess seen. Of note, initial CXR showed no evidence of pneumonia. He was initially admitted to [facility] for further care. Blood cultures became positive due to Pseudomonas. He was initially started on antibiotics on 04/26/2024, and continued with
his tacrolimus. ID consulted on 04/29, and on 04/30 a CTA abdomen/pelvis was performed showing acute aortitis likely related to the aortobiiliac endograft. Given the concern for graft infection, patient was urgently brought to the OR, and on
05/01/2024 Dr. Brannon performed a right axillary bifemoral artery bypass as well as explantation of the entirety of his infected aortic endograft via retroperitoneal incision with oversewing of aortic and iliac systems and wide debridement of his
retroperitoneum. There were no immediate complications, and the patient was transferred to the ICU on the ventilator with tin tie machine operator automatic services consulted for additional management/recommendations. As per the RN, EBL was about 1200 cc.
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
history of PVCs, reported history of COPD
Last 24 hrs:
Fluid balance, +603 mL.
WBC count up at 24.9, hemoglobin 9, platelet 1 62K
INR 1.33 today
Sodium mildly low 133, creatinine stable at 1.3. Potassium of 3.8, magnesium 1.9, albumin low at 1.8
-Pseudomonas and abdominal cultures
Chest x-ray suggestive of low lung volumes and increased pulmonary congestion possibly atelectasis or small left pleural effusion.
Assessment and plan:
#1. Aortic endograft infection (Pseudomonas), status post right axillary bifemoral arterial bypass with explantation of infected graft wire retroperitoneal incision with oversew.
-Management per vascular surgery
-Continue cefepime for pseudomonal endograft infection
-ID service on case
-Hemodynamically stable, off pressors.
#2. Acute hypoxic respiratory failure, postop. Resolved, currently extubated.
-Patient wants supplemental oxygen with low lung volumes noted along with mild pulmonary congestion. Abdominal distention and morbid obesity also creating somewhat restrictive pathology.
-Increase diuresis to Lasix 40 twice daily
-Prior rectal suppository to help with the obstipation
-Activity as tolerated
-N.p.o. for now, at risk of respiratory failure, monitor closely in the ICU
#3. h/o Liver transplant
-Follows up with [facility]
-Continue current dose of Prograf, follow-up on tacrolimus levels
-Daily liver function testing
#4. DM
-Had been on insulin infusion
-DM nurse consult
#5. h/o CAD, sp PCI, Paroxysmal A fib
-Eliquis and Plavix on hold. Resume once cleared by Surgery service
DVT prophylaxis: Subcu heparin
GI prophylaxis: IV pantoprazole
Code status: DNR/DNI
Continue with ICU level care for this critically ill patient
Critical care statement: A total of 32 minutes of critical care time was provided for this patient today. This includes management of unstable vital signs, evaluation of the patient at bedside, reviewing the patient's pertinent medical records
including radiographs, microbiology, laboratory evaluations, and discussion with primary team, consultants, pharmacy, nutrition, physical therapy, case management, charge nurse, critical care nursing, and respiratory therapy.
Subjective Dataa
Subjective Data
Date of Service:
Date of Service: May 05, 2024
Chief Complaint: Bi Tri Operator Follow Up
Subjective:
Patient lying in bed, in no acute distress
Review of Systems
Genitourinary: Other (Feels constipated. Otherwise unremarkable.)
Objective Data
Data Reviewed
Vital Signs / I&O / Oxygen:
Vital Signs
Temp Pulse Resp BP Pulse Ox
98.5 F 103 19 127/110 97
05/05/24 11:30 05/05/24 13:00 05/05/24 13:00 05/05/24 12:00 05/05/24 13:01
Intake and Output
05/04/24 05/05/24 05/06/24
06:59 06:59 06:59
Intake Total 4178.3 / 4279.8 2702.9 / 2779.1 662.8 / 662.8
Output Total 1325 / 1375 1545 / 1645 1115 / 1115
Balance 2853.3 / 2904.8 1157.9 / 1134.1 -452.2 / -452.2
SaO2 [A/C] 100
SaO2 97
Nasal Cannula flow liters per 2
minute
Physical Exam
General: Comfortable, Chills (negative) and Sweats (negative)
HEENT: Normocephalic and Anicteric
Cardiovascular: S1-S2 and Peripheral Edema (+3 lower extremity pitting edema bilaterally)
Respiratory: Crackles and Non-Labored Respirations
GI: Soft, Distended (Abdominal obesity), Non Tender and Normal Bowel Sounds
Neurology: Awake and Alert
Skin: Warm and Dry
Labs/Micro/Reports
Lab Data
05/05/24 03:38
05/05/24 03:38
Laboratory Results
05/05/24
03:38
PT 16.8 H
INR 1.33
APTT 36.6 H
Microbiology
05/02/24 12:54 Blood/Venous Blood Culture - Preliminary
No Growth in 72 hours- Final report to follow
04/30/24 08:50 Blood/Venous Blood Culture - Final
No Growth - Final Report
05/02/24 12:37 Blood/Venous Blood Culture - Preliminary
No Growth in 72 hours- Final report to follow
05/01/24 20:42 Abdomen Anaerobic Culture - Preliminary
Culture pending. Anaerobic cultures are examined after 3
days incubation. Additional information to follow.
04/29/24 06:51 Blood/Venous Blood Culture - Final
Pseudomonas aeruginosa
04/29/24 06:51 Blood/Venous Gram Stain - Final
04/28/24 13:34 Blood/Venous Blood Culture - Final
Pseudomonas aeruginosa
04/28/24 13:34 Blood/Venous Gram Stain - Final
04/30/24 09:18 Blood/Venous Blood Culture - Final
No Growth - Final Report
05/01/24 20:42 Abdomen Wound Culture - Preliminary
Pseudomonas aeruginosa
05/01/24 20:42 Abdomen Gram Stain - Preliminary
05/01/24 20:42 Tissue Tissue Culture - Final
Pseudomonas aeruginosa
05/01/24 20:42 Tissue Gram Stain - Final
05/01/24 20:42 Heart Tissue Culture - Final
Pseudomonas aeruginosa
05/01/24 20:42 Heart Gram Stain - Final
04/25/24 15:59 Blood/Venous Blood Culture - Final
Pseudomonas aeruginosa
04/25/24 15:59 Blood/Venous Gram Stain - Final
04/25/24 15:59 Blood/Venous Blood Culture - Final
Pseudomonas aeruginosa
04/25/24 15:59 Blood/Venous Gram Stain - Final
--- NOTE | 2024-05-05 14:39 | PTOTSP ---
Speech Therapy Evaluation:
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 No s/sx of aspiration across PO trials. 3oz
swallow screen and solid trials deferred given SOB and RR increasing to 25 towards end of session. Pt remains at increased risk of aspiration and related complications given concern for breathing/swallow coordination and being immunosuppressed with
tacrolimus. Pt also at risk for post-prandial aspiration with concern for potential esophageal component given RN report of belching with liquids, pt belching with liquids during PO trials, and recent surgery involving aorta, potentially causing
post-surgical swelling/inflammation in the mediastinal/esophageal region. WBC currently increased and CXR with LLL atelectasis vs PNA.
Recommend:
1. Initiate cautious diet of IDDSI Level 4 (puree) and thin liquids
2. Medications as tolerated
3. Strict aspiration and reflux precautions
4. Low threshold for NPO - d/c oral diet of concerned for aspiration or worsening in chest imaging/respiratory status
5. STEMHOLE BORER to follow re: tolerance of diet, assess candidacy for diet upgrades, and determine if pt would benefit from instrumental assessment.
--- NOTE | 2024-05-05 15:47 | PTCARENOTE ---
Pt has had multiple brown/pasty bm t/o day. Inconsistently follows commands/answers question. Serosanguinous drainage from chest tube/b/l groin and larm weaping. chest tube dressing reinforced. New abd to b/l groin. covidien placed across
abdomen for drainage. Does have some increased wob with laying flat/repositioning. Sats low to mid 90s on 2lnc. Pt baseline room air. Otherwise no changes.
[2024-05-05 16:21] LABS: Blood Urea Nitrogen 28 mg/dl (9-20); Calcium 7.6 mg/dl (8.4-10.2); Carbon Dioxide 24 mmol/L (22-30); Chloride 101 mmol/L (98-107); Estimated Creatinine Clearance 66 ml/min; Glucose 139 mg/dl (70-99); Potassium 4.1 mmol/L (3.5-5.1); Sodium 134 mmol/L (135-145); eGFR 57.65
[2024-05-05] MEDS: STERILE WATER FOR INJECTION 10 ML IV (16:57)
[2024-05-05] MEDS: MAXIPIME 2000 MG IV (16:57)
--- NOTE | 2024-05-05 17:03 | CM ---
Patient was extubated on 05/02/24. Patient was seen by physical therapy. Physical therapy are recommending skilled options reviewed with patient's daughter and patient has been at rehab in the [place] area, case management rn reviewed options in this area
and patient is agreeable to [facility]. Referrals sent to both facilities.
Plan; Skilled placement.
[2024-05-05 17:39] LABS: Glucose - Point of Care 139 mg/dl (70-99)
[2024-05-05] MEDS: NSS IV (17:45)
--- NOTE | 2024-05-05 17:45 | PTCARENOTE ---
iv team at bedside to place midline, pt no longer requiring cordis, not giving blood return despite kvo and receiving lasix.
--- NOTE | 2024-05-05 19:08 | PTCARENOTE ---
Reanna Garibay at bedside to remove L IJ cordis x 2.
--- NOTE | 2024-05-05 20:00 | PTCARENOTE ---
Neurovascular checks unchanged from previous shift.
[2024-05-05] MEDS: MAGNESIUM OXIDE PO (21:35)
[2024-05-05] MEDS: PROGRAF 1.5 MG PO (21:39)
--- NOTE | 2024-05-05 22:00 | PTCARENOTE ---
Chest tube in place draining serosang drainage. Dressing intact.
[2024-05-06] VITALS (12 sets, daily range): BP systolic 111–161; BP diastolic 61–92; BMI 34.2
[2024-05-06 00:03] LABS: Glucose - Point of Care 163 mg/dl (70-99)
[2024-05-06] MEDS: NOVOLOG FLEXPEN-MODERATE RESISTANCE 1 UNITS SC ×2 (01:31→06:26)
[2024-05-06] MEDS: HEPARIN 5000 UNITS SC ×3 (01:32→15:46)
[2024-05-06] MEDS: MAXIPIME 2000 MG IV ×2 (03:25→15:46)
[2024-05-06] MEDS: STERILE WATER FOR INJECTION 10 ML IV ×2 (03:25→15:46)
[2024-05-06 04:00] LABS: % Basophils 0.2 % (0-2); % Eosinophils 0.3 % (0-6); % Immature Granulocytes 4.3 % (0-0.5); % Lymphocytes 6.4 % (20.5-51.1); % Monocytes 6.6 % (1.7-9.3); % Neutrophils 82.2 % (42.2-75.2); Absolute Eosinophils 0.1 10^3/uL (0-0.7); Absolute Lymphocytes 1.5 10^3/uL (1.2-3.4); Absolute Monocytes 1.5 10^3/uL (0.1-0.6); Hematocrit 27.5 % (39.0-52.0); Hemoglobin 9.5 g/dL (13.0-18.0); Mean Corp Hgb Conc. 34.5 g/dL (33.0-37.0); Mean Corpuscular Hgb 31.8 pg (27.0-31.0); Nucleated Red Blood Cells % 0 % (-); Platelet Count 204 10^3/uL (130-400); Red Blood Cell Count 2.99 10^6/uL (4.70-6.10); White Blood Cell Count 23.1 10^3/uL (4.8-10.8)
[2024-05-06 04:08] LABS: APTT 36.9 Sec (23.4-35.0); INR 1.44; PT 17.8 Sec (11.4-14.6)
[2024-05-06 04:28] LABS: ALT (SGPT) 27 U/L (0-50); AST (SGOT) 49 U/L (17-59); Alkaline Phosphatase 190 U/L (38-126); Blood Urea Nitrogen 29 mg/dl (9-20); Calcium 7.7 mg/dl (8.4-10.2); Carbon Dioxide 23 mmol/L (22-30); Chloride 106 mmol/L (98-107); Estimated Creatinine Clearance 66 ml/min; Glucose 147 mg/dl (70-99); Sodium 136 mmol/L (135-145); Total Bilirubin 2.2 mg/dl (0.2-1.3); eGFR 57.65
[2024-05-06 05:26] LABS: Glucose - Point of Care 161 mg/dl (70-99)
[2024-05-06] MEDS: NSS 1000 IV (06:26)
[2024-05-06] MEDS: SPIRIVA RESPIMAT 2.5 MCG 2 PUFF INH (07:44)
[2024-05-06] MEDS: ADVAIR HFA 45/21 MCG INHALER 2 PUFF INH ×2 (07:44→19:46)
--- NOTE | 2024-05-06 08:02 | W.PN.VS ---
Addendum entered and electronically signed by GUILLERMO Moser 05/06/24 17:33:
Noted increased output of chest tube this a.m., thus did not remove chest tube. Will reevaluate tomorrow morning with output and repeat chest x-ray.
Addendum entered and electronically signed by Gamaliel Vaughn III, MD 05/06/24 10:44:
This patient was seen and examined in collaboration with GUILLERMO Moser. I agree with the history and physical exam as well as the assessment and plan. I have the following additions:
Overall making improvements
Continue diuresis
Intravenous antibiotics
Advance diet slowly
Out of bed/PT/OT
Signed:
Gamaliel Vaughn III, MD
[facility] Vascular Surgery
[phone] (lbth)
Original Note:
Today's Communication / Plan
-
Patient seen and examined at bedside with Dr. Gamaliel Vaughn III, below plan reviewed with attending.
Assessment/Plan
-
POD 4 Right axillary bifemoral artery bypass with 8 mm ringed [place] Propaten graft.
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
Plan:
-Agree with continuation of diuresis by primary team
-Will discontinue chest tube
-Okay from a vascular surgical perspective to advance diet to clears, keep Vaughn catheter for accurate I&O intake
-Antibiotics per ID, will require at least 6 weeks of IV antibiotics with continued p.o. suppression appreciate ID recommendations
-Remain in ICU
-Continue ST/PT/OT
-Aspiration precautions
-Encourage incentive spirometry
Subjective Data
-
Date of Service: May 06, 2024
Patient seen and examined at bedside, able to recall year, location, and name but intermittently confused and cannot answer complex/in-depth questions. Reports well-managed postoperative pain. Passing flatus and bowel movement.
Objective Data
-
Vital Signs
Temp Pulse Resp BP Pulse Ox
97.6 F 109 20 161/71 95
05/05/24 23:33 05/06/24 07:49 05/06/24 07:49 05/06/24 06:00 05/06/24 07:49
Intake and Output
05/05/24 05/06/24 05/07/24
06:59 06:59 06:59
Intake Total 2702.9 / 2779.1 932.8 / 932.8
Output Total 1545 / 1645 2891 / 2891
Balance 1157.9 / 1134.1 -1958.2 / -8.2
Intake:
IV fluids (Total) 2192.9 / 2269.1 732.8 / 732.8
INSULIN 32.9 / 34.1 7.8 / 7.8
KVO 960 / 960
Nss 1,000 ml @ 75 mls/hr IV . 1200 / 1275 675 / 675
[id number] [facility] Rx#:[id number]
kcl 50 / 50
IV piggybacks 400 / 400 200 / 200
Amount instilled into GI Tube ( 110 / 110
Total)
[place] Sump 110 / 110
Output:
CT Output (Total)
Left Lateral
Urine, Vaughn 1340 / 1440 2696 / 2696
Lab Results
05/06/24 03:46
05/06/24 03:46
Calcium 7.7 mg/dl (8.4-10.2) L 05/06/24 03:46
Phosphorus 3.5 mg/dl (2.5-4.5) 05/05/24 03:38
Magnesium 1.9 mg/dl (1.6-2.3) 05/05/24 03:38
Total Bilirubin 2.2 mg/dl (0.2-1.3) H 05/06/24 03:46
Direct Bilirubin 1.2 mg/dl (0.0-0.4) H 05/05/24 03:38
AST 49 U/L (17-59) 05/06/24 03:46
ALT 27 U/L (0-50) 05/06/24 03:46
Alkaline Phosphatase 190 U/L (38-126) H 05/06/24 03:46
Total Protein 4.0 g/dl (6.3-8.2) L 05/06/24 03:46
Albumin 2.0 g/dl (3.5-5.0) L 05/06/24 03:46
Physical Exam
-
No apparent distress, resting in bed comfortably
Heart rate 100-110
Abdomen soft, rotund
Chest marija CDI, well-approximated, right side tunneled location no ecchymosis or swelling noted
RP abdomen site marija well-approximated and site CDI
Bilateral groin dressings CDI
Chest tube site intact
Doppler DP and PTs noted bilaterally
+2/3 pitting edema bilateral lower extremities
Vaughn draining minimal clear yellow urine
--- NOTE | 2024-05-06 08:56 | PN.DE.MGMTRT ---
Insulin Management
- -
05/06/2024: Diabetes Management follow up
Patient admitted 04/25 with fever/chills decreased oral intake and diarrhea. PMH including: Paroxysmal A-Fib, CAD, PVCs, alcoholic cirrhosis, hepatitis C s/p liver transplant in 2006 (on immunosuppression), multiple bile duct stents, AAA s/p repair
in 2004, HTN, HLD, COPD chronic tobacco use and T2DM. Prior to admission was taking Metformin 500 mg daily. A1C 7.5%, Cr 1.1, eGFR >60
CT A/P--> enteritis/ileus. Admission blood cultures + Pseudomonas. CT angio showed significant concern for infected aortic endograft and questionable distal common bile duct stone vs mass vs sludge. Pt underwent Right axillary bifemoral artery
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
Pt awake, alert, sitting up in bed, offers no complaints. Able to discuss diabetes care plan.
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
Transitioned from glycemic protocol yesterday to lantus and novolog. Will continue 15 units lantus in AM with moderate corrective AC. For speech eval and possible diet.
Discussed with nurse.
Will follow
Diabetes History
- -
Type of Diabetes: 2
Pre-Admission Diabetes Regimen
05/05/24 05/06/24
15:56 03:46
Creatinine 1.3 1.3
Lab Results
Hemoglobin A1c 7.5 % (4.0-5.6) H 04/29/24 06:51
Insulin Pump Settings
IP Diabetes Regimen
05/05/24 05/05/24 05/05/24
08:57 11:24 15:56
Glucose 139 H
POC Glucose 117 H 122 H
05/05/24 05/05/24 05/06/24
17:27 23:51 03:46
Glucose 147 H
POC Glucose 139 H 163 H
05/06/24
05:14
Glucose
POC Glucose 161 H
Patient Education
[2024-05-06] MEDS: LANTUS 0.15 UNITS SC (09:11)
[2024-05-06] MEDS: NSS (PRESERVATIVE FREE) 10 ML IV ×2 (09:12→19:31)
[2024-05-06] MEDS: PROGRAF 1.5 MG PO ×2 (09:13→19:31)
[2024-05-06] MEDS: TOPROL XL 100 MG PO (09:13)
[2024-05-06] MEDS: PROTONIX IV 40 MG IV ×2 (09:13→19:32)
[2024-05-06] MEDS: MAGNESIUM OXIDE 500 MG PO ×2 (09:14→19:31)
[2024-05-06] MEDS: LASIX 40 MG IV ×2 (09:14→15:46)
[2024-05-06] MEDS: OFIRMEV 100 IV ×2 (09:20→14:49)
[2024-05-06 09:21] LABS: Glucose - Point of Care 128 mg/dl (70-99)
--- NOTE | 2024-05-06 10:15 | PTOTSP ---
Speech Language Pathology
Pt seen for dysphagia tx. Chart states 6 months of dysphagia, but pt currently denying. Stated he was choking while he was in the hospital only. Reports are very inconsistent, and pt is not an accurate historian. Improved respiratory status noted
this date compared to evaluation 05/05. P.O. trials of puree, regular solids, and thin liquids provided. Limited solids trialed given plan for clear liquids this date (provided for evaluation purposes only). Adequate mastication, bolus formation,
and A-P transit noted with no oral residue. No overt signs of aspiration.
Recommend:
(1) Regular solids/thin liquids once cleared by MD for solids
(2) Aspiration precautions: sit upright, full supervision, slow rate
(3) Meds as tolerated
(4) MANAGER CAMP to continue to follow
[2024-05-06 11:28] LABS: B.E. - POC -6.2 mmol/L; Glucose - POC 216 mg/dl (70-99); HCO3 - POC 20 mmol/L (21-28); Hematocrit - POC 30 % PCV (42-52); Hemodilution- POC Yes; Hemoglobin Calculated - POC 10.3; Ionized Calcium - POC 1.16 mmol/L (1.15-1.33); Lactate - POC 1.02 mmol/L (0.36-0.75); O2 Saturation %Calculated-POC 99.7 % (94-98); PCO2 - POC 39 mmHg (35-48); PO2 - POC 205 mmHg (83-108); Potassium - POC 4.3 mmol/L (3.5-5.1); Sodium - POC 135 mmol/L (136-145); Specimen Type - POC Arterial; pH - POC 7.31 (7.35-7.45)
[2024-05-06 11:47] LABS: Glucose - Point of Care 139 mg/dl (70-99)
[2024-05-06] MEDS: NOVOLOG FLEXPEN-MODERATE RESISTANCE SC ×2 (11:51→19:11)
--- NOTE | 2024-05-06 12:35 | W.PN.ID1 ---
Date of Service
Date of Service: May 06, 2024
Today's Communication
Continue current course of cefepime.
Assessment / Plan
# Sustained Pseudomonas bacteremia- source from infected stent grafts and/or biliary duct obstruction
- BC's negative 04/30 onward
# AAA stent graft infection.
hx AAA s/p aortobi-iliac stent graft (at [facility])
CTA: acute aortitis
# Biliary obstruction with intraluminal mass in CBD
# Leukocytosis - persists
# Hx liver transplant; on tacrolimus
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
- QTc has been acceptable
- 04/30 blood cultures - NGTD
- 05/02 blood cultures - NGTD
- 05/01 tissue cultures from the OR - Pseudomonas
- Appreciate Vascular
- Appreciate GI - ERCP currently on hold and may be done outpatient
--> Continue cefepime 2 gm IV q12h
--> will plan a course of IV therapy followed by suppressive antibiotics
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
Paroxysmal atrial fibrillation
CAD
Hypertension
Neuropathy
COPD
AAA s/p aortobi-iliac stent graft
Cholecystectomy
Back surgery
History of multiple bile duct stents
Chief Complaint
-: Leukocytosis and Bacteremia
Subjective / Review of Systems
Review of Systems: No Fever and No Chills
Vital Signs / Physical Exam
Vital Signs
Vital Signs
Temp Pulse Resp BP Pulse Ox
98.3 F 104 22 150/64 96
05/06/24 11:14 05/06/24 10:52 05/06/24 10:52 05/06/24 10:52 05/06/24 10:52
Physical Exam
Constitutional: No Acute Distress, Comfortable and Chronically Ill
Cardiovascular: Regular Rate and S1/S2; Negative Murmur or Rub
Pulmonary: Clear, Symmetric and Other (left CT in place); Negative Wheezes or Rales
Gastrointestinal: Soft, Non Tender, Non Distended and Normal Bowel Sounds
Skin: Warm and Dry; Negative Rash or Jaundice
Wound: Other (surgical sites dressings dry, intact, minimal strike through)
Psychological: Confused
Objective Data
Lab Data
Lab Results
05/06/24 03:46
05/06/24 03:46
PT 17.8 Sec (11.4-14.6) H 05/06/24 03:46
INR 1.44 05/06/24 03:46
APTT 36.9 Sec (23.4-35.0) H 05/06/24 03:46
Estimated Creat Clear 66 ml/min 05/06/24 03:46
Lactic Acid 1.4 mmol/L (0.7-2.0) 05/02/24 08:21
Total Bilirubin 2.2 mg/dl (0.2-1.3) H 05/06/24 03:46
AST 49 U/L (17-59) 05/06/24 03:46
ALT 27 U/L (0-50) 05/06/24 03:46
Alkaline Phosphatase 190 U/L (38-126) H 05/06/24 03:46
Most recent labs reviewed.
Micro Results:
05/01/24 20:42 Anaerobic Culture - Preliminary
Abdomen NO ANAEROBES ISOLATED
05/02/24 12:54 Blood Culture - Preliminary
Blood/Venous No Growth in 72 hours- Final report to follow
04/30/24 08:50 Blood Culture - Final
Blood/Venous No Growth - Final Report
05/02/24 12:37 Blood Culture - Preliminary
Blood/Venous No Growth in 72 hours- Final report to follow
04/29/24 06:51 Blood Culture - Final
Blood/Venous Pseudomonas aeruginosa
Gram Stain - Final
04/28/24 13:34 Blood Culture - Final
Blood/Venous Pseudomonas aeruginosa
Gram Stain - Final
04/30/24 09:18 Blood Culture - Final
Blood/Venous No Growth - Final Report
05/01/24 20:42 Wound Culture - Preliminary
Abdomen Pseudomonas aeruginosa
Gram Stain - Preliminary
05/01/24 20:42 Tissue Culture - Final
Tissue Pseudomonas aeruginosa
Gram Stain - Final
05/01/24 20:42 Tissue Culture - Final
Heart Pseudomonas aeruginosa
Gram Stain - Final
04/25/24 15:59 Blood Culture - Final
Blood/Venous Pseudomonas aeruginosa
Gram Stain - Final
04/25/24 15:59 Blood Culture - Final
Blood/Venous Pseudomonas aeruginosa
Gram Stain - Final
04/25/24 17:36 Urine Culture - Final
Urine NO GROWTH
04/26/24 00:04 MRSA Screen - Final
Nose No Methicillin Resistant Staphylococcus aureus isolated.
04/25/24 08:58 Influenza Types A & B (NITIN) - Final
Nasal Swab Negative for Influenza A & B, NAAT
Negative results must be combined with clinical observations
and patient history.
Nucleic Acid Amplification test (NAAT)performed on the
[employer] platform.
04/28/24 CT a/p: Probable enteritis/ileus. Cannot rule out developing small bowel obstruction with questionable transition points as described.
04/28/24 Chest/abd xray: Nonobstructive bowel gas pattern. Mild colonic stool burden.
04/30/24 CT angiogram a/p: Aortobiiliac endograft in place with an interval increase in size of the [place] aneurysm sac around the endograft, interval increase in circumferential wall thickening of the [place] aneurysm, mild retroperitoneal
inflammation, and increased small retroperitoneal lymph nodes. The constellation of findings is suggestive of ACUTE AORTITIS which could be secondary to infection or inflammatory disease.
2. Moderate extrahepatic biliary dilatation with suggestion of an obstructing 1.3 cm intraluminal mass in the distal common bile duct. Diagnostic possibilities are (1) choledocholithiasis or (2) less likely bile duct cancer. Mild wall thickening
and hyperenhancement of the common hepatic and common bile ducts suggesting CHOLANGITIS.
3. Right upper quadrant liver transplant in place with mild pneumobilia in the liver.
--- NOTE | 2024-05-06 13:55 | W.PN.HOSP.TC ---
Addendum entered and electronically signed by Jozef Dickinson DO 05/06/24 16:05:
CDI: Postoperative anemia, AKA acute blood loss anemia due to surgery
Original Note:
Today's Communication/Plan
-
-Albumin was ordered for once
-Follow BMP, CBC daily
Assessment / Plan
Assessment / Plan
The patient was presented to ER after having 1 episode of large amount diarrhea and his CT abdomen pelvis showed probable enteritis/ileitis. The patient was admitted with a concern of probable sepsis to enteritis and he was started on Zosyn. His
diarrhea diarrhea improved but he has been having ongoing abdominal discomfort as well as constipation. Due to his persistent bacteremia with Pseudomonas aeruginosa, the patient was consulted to ID. It was recommended to have a CT angio pelvis
abdomen for possible aorto bi-iliac stent infection. CT angio abdomen pelvis showed acute aortitis and intraluminal mass in the distal common bile duct. Vascular surgery and gastroenterology team was consulted to assist the patient. The patient
underwent an urgent surgery on 05/01/24 and her infected stent was removed and has a right axillary bifemoral artery bypass on 05/01/2024. The patient was transferred to ICU. The patient was started on vasopressor and extubated on 05/02/24.
Following following, patient started to be gradually hemodynamically stable and vasopressors discontinued.
Problem list
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
CBD mass
Sepsis secondary to AAA stent graft infection vs hepatobiliary infection vs Enteritis/Ileitis
Leukocytosis
CHARISSE
Hypertension
Chronic pain to cervical/lumbar radiculopathy
Paroxysmal atrial fibrillation
History of CAD
History of PVCs
Hx of Alcoholic cirrhosis
Hepatitis C s/p liver transplant in 2006 and [facility] with with ongoing
History of multiple bile duct stents
Abdominal aortic aneurysm s/p repair at [facility]
Hyperlipidemia
Essential hypertension
COPD
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
-Hx of aorto bi iliac stent 19 years ago due AAA at [facility]
-CT angio abdomen: suggestive of acute aortitis
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
-Vascular surgery on board, reporting Reasonable graft function with dopplerable DP signals bilaterally
-Admitted ICU
-Now off vasopressors since evening of 05/02, extubated 05/02
-Pain management
-Aspirin and Plavix on hold
#Generalized Edema secondary to surgery
-Given multiple RBC and IV fluids
-Improving
-Continue Furosemide
-Ordered one dose of albumin IV
#Sepsis suspected secondary to AAA stent graft infection vs hepatobiliary infection vs Enteritis/Ileitis
-Continue Cefepime
-Cultures from 04/28 through 05/01 positive for Pseudomonas, cultures from 05/02 no growth to date
-Wound culture positive for Pseudomonas
-Hx of bile duct stent placement-all bile duct stents removed in the past by Dr Short at [facility], per patient`s report, outpatient GI follow-up as needed, no current plans for ERCP this admission
#CBD mass
-History of liver transplantation in 2006 at [facility]-on tacrolimus
-History of multiple bile duct stents-all removed per patient report by Dr Short at [facility]
-GI on board, no plans for ERCP this admission, recommend outpatient GI follow-up
#Anemia requiring transfusions
-Suspect secondary to expected surgical blood loss
-Transfused a total of 9 units PRBCs, 2 units FFP, 1 unit of platelets this admission
-Continue to monitor hemoglobin and transfuse further as needed
-Aspirin and Plavix on hold- will ask vascular surgery team to restart if GI is not planning ERCP
#Metabolic acidosis
-Resolved
# Constipation
-Abdominal i-[id number]-[id number] series 04/28: Mild stool burden without obstruction findings
-Rectal rectal suppository was given on 04/29
-Continue bowel regimen
-Await return of bowel function
# DM
- Hba1c 7.5
- Continue SSI
- Plan starting metformin on DC
# Hyponatremia
- hypovolemic
- Continue IVF
- Follow BMP
# Acute kidney injury
-Resolved
-Cr 1.3 at likely baseline
-Hold lisinopril
#Essential hypertension
-Metoprolol 100 mg started and planning to up 150 mg with BP/HR monitor
- lisinopril on hold
#Paroxysmal atrial fibrillation
-Eliquis on hold by surgery
-Metoprolol on hold
-Started on heparin
-Will be discussed with GI and vascular surgery team to decide to restart
# Right-sided cervical radiculopathy and lumbar radiculopathy
-Patient has some pain in his lower back suggesting lumbar radiculopathy
-Strength is preserved
#History of CAD
-Plavix on hold for now with the last dose on 05/01 am
-Statin can e considered to restart
#History of PVCs
#Alcoholic cirrhosis
#Chronic neuropathy
-Continue pregabalin
#COPD
DNR
DVT prophylaxis- heparin
Dispo eventual DC home with HC
Anticipated Discharge: 24 - 48 hours
Subjective/Interval History
-
Date of Service: May 06, 2024
Objective Data
-
Labs:
Laboratory Results
05/06/24
03:46
WBC 23.1 H
Hgb 9.5 L
Hct 27.5 L
Plt Count 204 D
PT 17.8 H
INR 1.44
APTT 36.9 H
Sodium 136
Potassium 4.0
Chloride 106
Carbon Dioxide 23
BUN 29 H
Creatinine 1.3
Glucose 147 H
Calcium 7.7 L
Total Bilirubin 2.2 H
AST 49
ALT 27
Alkaline Phosphatase 190 H
Vital Signs:
Vital Signs
Temp Pulse Resp BP Pulse Ox
98.3 F 104 22 150/64 96
05/06/24 11:14 05/06/24 10:52 05/06/24 10:52 05/06/24 10:52 05/06/24 10:52
I&O
05/05/24 05/06/24 05/07/24
06:59 06:59 06:59
Intake Total 2702.9 / 2779.1 932.8 / 932.8
Output Total 1545 / 1645 2891 / 2941 450 / 450
Balance 1157.9 / 1134.1 -1958.2 / -2008.2 -420 / -420
Review of Systems
-
History Source: Patient
EENT: Reports No Symptoms Reported
Respiratory: Reports No Symptoms
Cardiac: Reports No Symptoms
Abdomen/GI: Reports Other (Pain on the left side where he has surgery stiches and chest tube )
Genitourinary: Reports No Symptoms
Musculoskeletal: Reports Edema (seems improved )
Skin: Reports No Symptoms
Neuro: Reports Other (some confusion )
Physical Exam
-
General: Well Developed, Well Nourished, Pain, Appears Chronically Ill and Obese
HEENT: Normocephalic and Atraumatic
Respiratory: Clear to Auscultation
Cardiac: Regular Rhythm and S1/S2
GI: Soft and Nontender
Musculoskeletal: Edema, Right Upper Extrem, Edema, Left Upper Extrem, Edema, Right Lower Extrem and Edema, Left Lower Extrem
Skin: Warm
Neuro: Awake, Alert, Oriented and AO x 3
Psych: Other (consfusion )
--- NOTE | 2024-05-06 15:02 | W.PN.INTV ---
Today's Communication / Plan
Recommendations
- Chest tube clamped, follow-up x-ray stable possible removal
-Discontinue IV fluids in view of hypervolemia, continue Lasix 40 IV twice daily
-Avoid hypotension
-Follow-up tacrolimus level
Assessment
-
Assessment: 73-year-old male with a past medical history of alcoholic cirrhosis with hepatitis C virus s/p liver transplantation on tacrolimus ([facility] � 2006), AAA s/p repair ([facility] � 2005), history of hepatitis, CAD with history of PA (2017)
s/p coronary stent, hypertension, COVID-19 (April 2020), paroxysmal A-fib on Eliquis and a reported history of COPD who presents with fever, runny nose, diarrhea, and reduced appetite. He was feeling unwell for 4 days prior to arrival. He has also
had a mild cough with some shortness of breath. He was diagnosed with a suspected viral enteritis after initial CT abdomen/pelvis on 04/25/2024 showed slightly prominent fluid-filled small bowel loops in the lower abdomen without perforation or
abscess seen. Of note, initial CXR showed no evidence of pneumonia. He was initially admitted to [facility] for further care. Blood cultures became positive due to Pseudomonas. He was initially started on antibiotics on 04/26/2024, and continued with
his tacrolimus. ID consulted on 04/29, and on 04/30 a CTA abdomen/pelvis was performed showing acute aortitis likely related to the aortobiiliac endograft. Given the concern for graft infection, patient was urgently brought to the OR, and on
05/01/2024 Dr. Brannon performed a right axillary bifemoral artery bypass as well as explantation of the entirety of his infected aortic endograft via retroperitoneal incision with oversewing of aortic and iliac systems and wide debridement of his
retroperitoneum. There were no immediate complications, and the patient was transferred to the ICU on the ventilator with technology development intern services consulted for additional management/recommendations. As per the RN, EBL was about 1200 cc.
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
history of PVCs, reported history of COPD
Last 24 hrs:
Fluid balance, -1.9 ltr
WBC count slightly down at 23.1, hemoglobin 9.5, platelet 204
INR 1.4 today
Electrolytes unremarkable, albumin low
-Pseudomonas on abdominal cultures
Chest x-ray suggestive of small left pleural effusion with atelectasis, slightly improved
Assessment and plan:
#1. Aortic endograft infection (Pseudomonas), status post right axillary bifemoral arterial bypass with explantation of infected graft wire retroperitoneal incision with oversew.
-Management per vascular surgery
-Continue cefepime for pseudomonal endograft infection
-ID service on case
-Hemodynamically stable, off pressors.
#2. Acute hypoxic respiratory failure, postop. Resolved, currently extubated.
-Patient breathing comfortably, x-ray improving
-Still volume overloaded, continue Lasix IV 40 twice daily, discontinue IV normal saline infusion in view of hypervolemia and need for diuresis
#3. h/o Liver transplant
-Follows up with [facility]
-Continue current dose of Prograf, level 7.9
-Pharmacy to help identify outpatient regimen and contact patient's transplant dial buffer
-Daily liver function testing
-Hold Albumin, continue diuresis
#4. DM
-Had been on insulin infusion
-DM nurse consult
#5. h/o CAD, sp PCI, Paroxysmal A fib
-Eliquis and Plavix on hold. Resume once cleared by Surgery service
-Toprol resumed, will recommend holding today to avoid hypotension
DVT prophylaxis: Subcu heparin
GI prophylaxis: IV pantoprazole
Code status: DNR/DNI
Continue with ICU level care for this critically ill patient
Critical care statement: A total of 3o minutes of critical care time was provided for this patient today. This includes management of unstable vital signs, evaluation of the patient at bedside, reviewing the patient's pertinent medical records
including radiographs, microbiology, laboratory evaluations, and discussion with primary team, consultants, pharmacy, nutrition, physical therapy, case management, charge nurse, critical care nursing, and respiratory therapy.
Subjective Dataa
Subjective Data
Date of Service:
Date of Service: May 06, 2024
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
Subjective:
Patient comfortably sitting in bed, in no acute distress.
Review of Systems
Genitourinary: Other (All 14 systems reviewed and negative except as stated above in the history of present illness.)
Objective Data
Data Reviewed
Vital Signs / I&O / Oxygen:
Vital Signs
Temp Pulse Resp BP Pulse Ox
98.3 F 91 24 111/84 96
05/06/24 11:14 05/06/24 14:00 05/06/24 14:00 05/06/24 14:00 05/06/24 14:21
Intake and Output
05/05/24 05/06/24 05/07/24
06:59 06:59 06:59
Intake Total 2702.9 / 2779.1 932.8 / 932.8 30 / 30
Output Total 1545 / 1645 2891 / 2941 645 / 645
Balance 1157.9 / 1134.1 -1958.2 / -2008.2 -615 / -615
SaO2 [A/C] 100
SaO2 96
Nasal Cannula flow liters per 3
minute
Physical Exam
General: Comfortable, Chills (negative) and Sweats (negative)
HEENT: Normocephalic and Anicteric
Cardiovascular: S1-S2 and Peripheral Edema (+3 lower extremity pitting edema bilaterally)
Respiratory: Crackles and Non-Labored Respirations
GI: Soft, Non Tender and Normal Bowel Sounds
Neurology: Awake and Alert
Skin: Warm and Dry
Labs/Micro/Reports
Lab Data
05/06/24 03:46
05/06/24 03:46
Laboratory Results
05/06/24
03:46
PT 17.8 H
INR 1.44
APTT 36.9 H
Microbiology
05/02/24 12:54 Blood/Venous Blood Culture - Preliminary
No Growth in 4 days- Final report to follow
05/02/24 12:37 Blood/Venous Blood Culture - Preliminary
No Growth in 4 days- Final report to follow
05/01/24 20:42 Abdomen Anaerobic Culture - Preliminary
NO ANAEROBES ISOLATED
04/30/24 08:50 Blood/Venous Blood Culture - Final
No Growth - Final Report
04/29/24 06:51 Blood/Venous Blood Culture - Final
Pseudomonas aeruginosa
04/29/24 06:51 Blood/Venous Gram Stain - Final
04/28/24 13:34 Blood/Venous Blood Culture - Final
Pseudomonas aeruginosa
04/28/24 13:34 Blood/Venous Gram Stain - Final
04/30/24 09:18 Blood/Venous Blood Culture - Final
No Growth - Final Report
05/01/24 20:42 Abdomen Wound Culture - Preliminary
Pseudomonas aeruginosa
05/01/24 20:42 Abdomen Gram Stain - Preliminary
05/01/24 20:42 Tissue Tissue Culture - Final
Pseudomonas aeruginosa
05/01/24 20:42 Tissue Gram Stain - Final
05/01/24 20:42 Heart Tissue Culture - Final
Pseudomonas aeruginosa
05/01/24 20:42 Heart Gram Stain - Final
--- NOTE | 2024-05-06 15:23 | PN.CDI ---
CDI
- -
CDI:
Physician Documentation Request
Admit Date: 04/28/24 08:00
Dear Doctor,
Please review the following and provide your response in the progress notes.
Clinical Indicators:
- 05/01 Straight Line Edger report EBL 1200ml
- 05/06 PN 'Anemia requiring transfusions...Suspect secondary to expected surgical blood loss'
- 9 units PRBC given
Please clarify, in your progress note, which of the following is the most likely type of anemia you are evaluating, monitoring and/or treating?
Acute blood loss anemia
Acute blood loss anemia with baseline chronic anemia (Specify type)
Other (please specify)
Use of terms such as suspected, likely, concern for, or probable (associated with a specific diagnosis that is being evaluated, monitored, or treated as if it exists) are acceptable and can be coded in the inpatient setting, when documented at the
time of discharge.
Thank you,
Iglesia Fuentes RN
CDI Specialist
Please use your independent medical judgment in providing your response.
--- NOTE | 2024-05-06 16:06 | CM ---
CM following re: discharge planning.
Reviewed pt's chart, met with pt.
PT and OT continue recommending SNF level of care. Pt is aware that [facility] denied a referral and [facility] still reviewing.
D/C plan: [facility] when medically stable. Awaiting for determination.
CM will follow to assist pt with discharge to [facility].
[2024-05-06 17:47] LABS: Glucose - Point of Care 89 mg/dl (70-99)
--- NOTE | 2024-05-06 19:20 | PTCARENOTE ---
Late entry. Assessments updated and documented. Follow up[ vital; sign trends thru shift. O2 at 3lpm n/c. Continue incentive spiroleter, presently working to 2000ml with much encouragement. Follow up with vascular team thru day and at bedside for
rounds. Continue with chest tube management as per vascular team. Ongoing pain management and follow up via Emar. Daughter at bedside updated plan of cares. Review and reinforce events of day. Follow up with speech can advance to regular diet when
cleared. Tolerated clear tray for dinner. Follow up plan of pt/ot evaluation in process. Updates at bedside and several times thru day with feed mill lab technician team. Continue ongoing critical care trends. Hourly rounds and patient safety checks. Call costa
instruct demo and in use prn.
[2024-05-07] VITALS (15 sets, daily range): BP systolic 110–151; BP diastolic 49–92; PULSE 86–92; O2SAT 92; BMI 33.7
[2024-05-07] MEDS: HEPARIN 5000 UNITS SC ×2 (00:12→08:20)
[2024-05-07] MEDS: DILAUDID 0.5 MG IV ×2 (00:18→21:32)
[2024-05-07] MEDS: MAXIPIME 2000 MG IV ×2 (05:03→16:02)
[2024-05-07] MEDS: STERILE WATER FOR INJECTION 10 ML IV ×2 (05:03→16:02)
[2024-05-07 05:38] LABS: Hematocrit 26.9 % (39.0-52.0); Hemoglobin 9.2 g/dL (13.0-18.0); Mean Corp Hgb Conc. 34.2 g/dL (33.0-37.0); Mean Corpuscular Hgb 32.1 pg (27.0-31.0); Mean Corpuscular Volume 93.7 fL (80.0-94.0); Mean Platelet Volume 11.3 fL (7.4-10.4); Platelet Count 211 10^3/uL (130-400); Red Blood Cell Count 2.87 10^6/uL (4.70-6.10); Red Cell Dist. Width 16.7 % (11.5-14.5); White Blood Cell Count 17.7 10^3/uL (4.8-10.8)
[2024-05-07 05:44] LABS: APTT 37.1 Sec (23.4-35.0)
[2024-05-07 05:55] LABS: ALT (SGPT) 27 U/L (0-50); AST (SGOT) 39 U/L (17-59); Albumin 1.8 g/dl (3.5-5.0); Alkaline Phosphatase 211 U/L (38-126); Blood Urea Nitrogen 29 mg/dl (9-20); Calcium 7.8 mg/dl (8.4-10.2); Carbon Dioxide 26 mmol/L (22-30); Chloride 106 mmol/L (98-107); Estimated Creatinine Clearance 65 ml/min; Glucose 108 mg/dl (70-99); Magnesium 1.9 mg/dl (1.6-2.3); Potassium 3.5 mmol/L (3.5-5.1); Sodium 138 mmol/L (135-145); Total Bilirubin 1.7 mg/dl (0.2-1.3); Total Protein 4.2 g/dl (6.3-8.2); eGFR 57.65
[2024-05-07] MEDS: KCL 20 MEQ PO (07:05)
[2024-05-07] MEDS: ADVAIR HFA 45/21 MCG INHALER 2 PUFF INH ×2 (07:36→20:24)
[2024-05-07] MEDS: SPIRIVA RESPIMAT 2.5 MCG 2 PUFF INH (07:36)
--- NOTE | 2024-05-07 07:52 | W.PN.VS ---
Addendum entered and electronically signed by Willis Brannon MD 05/07/24 14:50:
Seen and examined earlier this a.m. with HAROLDO Barbosa. Agree with findings as noted below. Incisions all clean dry and intact. No hematomas noted. Left chest wall no airleak was noted, drainage serous. Removed by me on rounds. Left foot palpable
DP pulse when edema fluid reduced. Right foot with significant edema fluid had difficulty palpating, but dopplerable signal. Feet are both warm. Plan/as discussed and noted below. Continue long-term IV antibiotics (virulent Pseudomonas
organism). I might favor getting a CT angiogram prior to patient discharge to make sure aortic stump looks okay.
Original Note:
Today's Communication / Plan
-
Seen and assessed with Dr. Brannon
Assessment/Plan
-
POD 6 Right axillary bifemoral artery bypass with 8 mm ringed [place] Propaten graft.
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
Plan:
-Agree with continuation of diuresis by primary team
-DC chest tube today, x-ray in 1 hour and 4 hours
-PT/OT/out of bed
-Antibiotics per ID, will require at least 6 weeks of IV antibiotics with continued p.o. suppression appreciate ID recommendations
-Aspiration precautions
-Encourage incentive spirometry
-Transfer to telemetry after stable xray
Subjective Data
-
Date of Service: May 07, 2024
Patient is an effective exam with Dr. Brannon. Patient offers no complaints at this time. Chest tube put out 110 overnight. Doing well with clears diet.
Objective Data
-
Vital Signs
Temp Pulse Resp BP Pulse Ox
98.4 F 75 18 132/75 94
05/07/24 07:48 05/07/24 07:40 05/07/24 07:40 05/07/24 04:00 05/07/24 07:40
Intake and Output
05/06/24 05/07/24 05/08/24
06:59 06:59 06:59
Intake Total 932.8 / 932.8 350 / 830 480 / 480
Output Total 2891 / 2941 2201.5 / 2239.0 37.5 / 37.5
Balance -1958.2 / -2008.2 -1851.5 / -1409.0 442.5 / 442.5
Intake:
Oral fluids 350 / 830 480 / 480
IV fluids (Total) 732.8 / 732.8
INSULIN 7.8 / 7.8
Nss 1,000 ml @ 75 mls/hr IV . 675 / 675
[id number] PETE Rx#:[id number]
kcl 50 / 50
IV piggybacks 200 / 200
Output:
CT Output (Total) 195 / 195 110 / 110
Left Lateral 195 / 195 110 / 110
Urine, Vaughn 2696 / 2746 2091.5 / 2129.0 37.5 / 37.5
Lab Results
05/07/24 05:17
05/07/24 05:17
Calcium 7.8 mg/dl (8.4-10.2) L 05/07/24 05:17
Phosphorus 3.0 mg/dl (2.5-4.5) 05/07/24 05:17
Magnesium 1.9 mg/dl (1.6-2.3) 05/07/24 05:17
Total Bilirubin 1.7 mg/dl (0.2-1.3) H 05/07/24 05:17
Direct Bilirubin 1.2 mg/dl (0.0-0.4) H 05/05/24 03:38
AST 39 U/L (17-59) 05/07/24 05:17
ALT 27 U/L (0-50) 05/07/24 05:17
Alkaline Phosphatase 211 U/L (38-126) H 05/07/24 05:17
Total Protein 4.2 g/dl (6.3-8.2) L 05/07/24 05:17
Albumin 1.8 g/dl (3.5-5.0) L 05/07/24 05:17
Physical Exam
-
No apparent distress, resting in bed comfortably
No tachycardia
Abdomen soft, rotund
Chest marija CDI, well-approximated
RP abdomen site marija well-approximated and site CDI
Bilateral groin dressings CDI
Chest tube site intact - output 110cc overnight
Doppler DP and PTs noted bilaterally
+2/3 pitting edema bilateral lower extremities
[2024-05-07 08:14] LABS: Glucose - Point of Care 109 mg/dl (70-99)
[2024-05-07] MEDS: LANTUS 0.15 UNITS SC (08:18)
[2024-05-07] MEDS: LASIX 40 MG IV ×2 (08:19→16:03)
[2024-05-07] MEDS: TYLENOL 650 MG PO (08:19)
[2024-05-07] MEDS: NSS (PRESERVATIVE FREE) 10 ML IV ×2 (08:19→19:35)
[2024-05-07] MEDS: PROTONIX IV 40 MG IV ×2 (08:19→19:35)
[2024-05-07] MEDS: MAGNESIUM OXIDE 500 MG PO ×2 (08:20→19:35)
[2024-05-07] MEDS: NOVOLOG FLEXPEN-MODERATE RESISTANCE SC ×3 (08:20→17:38)
[2024-05-07] MEDS: PROGRAF 1.5 MG PO ×2 (08:20→19:34)
--- NOTE | 2024-05-07 09:23 | PN.DE.MGMTRT ---
Insulin Management
- -
05/07/2024: Diabetes Management follow up
Patient admitted 04/25 with fever/chills decreased oral intake and diarrhea. PMH including: Paroxysmal A-Fib, CAD, PVCs, alcoholic cirrhosis, hepatitis C s/p liver transplant in 2006 (on immunosuppression), multiple bile duct stents, AAA s/p repair
in 2004, HTN, HLD, COPD chronic tobacco use and T2DM. Prior to admission was taking Metformin 500 mg daily. A1C 7.5%, Cr 1.1, eGFR >60
CT A/P--> enteritis/ileus. Admission blood cultures + Pseudomonas. CT angio showed significant concern for infected aortic endograft and questionable distal common bile duct stone vs mass vs sludge. Pt underwent Right axillary bifemoral artery
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
Pt awake, alert, sitting up in bed, offers no complaints. Able to discuss diabetes care plan.
POD # 5 s/p Right axillary bifemoral artery bypass and explant of entirety of infected aortic endograft
Transitioned from glycemic protocol 05/05 to lantus and novolog. Glucose range 89 pre dinner, fasting glucose today 108. Will decrease AM lantus to 12 units AM with moderate corrective AC. Tolerating clear liquid diet.
Discussed with nurse.
Will follow
Diabetes History
- -
Type of Diabetes: 2
Pre-Admission Diabetes Regimen
05/07/24
05:17
Creatinine 1.3
Lab Results
Hemoglobin A1c 7.5 % (4.0-5.6) H 04/29/24 06:51
Insulin Pump Settings
IP Diabetes Regimen
05/06/24 05/06/24 05/07/24
11:35 17:35 05:17
Glucose 108 H
POC Glucose 139 H 89
05/07/24
08:03
Glucose
POC Glucose 109 H
Meal type: Breakfast
Meal type: Dinner
Meal type: Lunch
Meal type: Breakfast
Amount consumed: 100%
Amount consumed: 100%
Patient Education
--- NOTE | 2024-05-07 09:43 | PTCARENOTE ---
Updated assessment vital signs ongoing and as documented. Follow up with hospitalist team at bedside. Review and reinforce plan of cares. Vascular team at bedside. Chest tube removal at this time will follow up chest xrays as per team. Follow up in
rounds with correctional agency director team and continue plan of cares. Will continue critical care trends. Incentive spirometer to 2000ml x5 continue pulmonary toileting and cough deep breath exercises.
--- NOTE | 2024-05-07 10:34 | W.PN.ID1 ---
Date of Service
Date of Service: May 07, 2024
Today's Communication
Continue antibiotics
Assessment / Plan
# Pseudomonas bacteremia- source from infected stent grafts and/or biliary duct obstruction
- BC's negative from 04/30 onward
# AAA stent graft infection.
hx AAA s/p aortobi-iliac stent graft (at [facility])
CTA: acute aortitis
# Biliary obstruction with intraluminal mass in CBD
# Leukocytosis - trending down
# Hx liver transplant; on tacrolimus
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
- QTc has been acceptable
- 04/30 blood cultures - NGTD
- 05/02 blood cultures - NGTD
- 05/01 tissue cultures from the OR - Pseudomonas
- Appreciate Vascular
- Appreciate GI - ERCP currently on hold and may be done outpatient
--> Continue cefepime 2 gm IV q12h
--> will plan a course of IV therapy followed by suppressive antibiotics
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
Paroxysmal atrial fibrillation
CAD
Hypertension
Neuropathy
COPD
AAA s/p aortobi-iliac stent graft
Cholecystectomy
Back surgery
History of multiple bile duct stents
Chief Complaint
-: Leukocytosis and Bacteremia
Subjective / Review of Systems
Patient seen and examined. No significant changes overnight. Chest tube now removed.
Review of Systems: No Fever
Vital Signs / Physical Exam
Vital Signs
Vital Signs
Temp Pulse Resp BP Pulse Ox
98.4 F 70 17 131/58 98
05/07/24 07:48 05/07/24 10:00 05/07/24 10:00 05/07/24 10:00 05/07/24 10:26
Physical Exam
Constitutional: No Acute Distress, Comfortable and Chronically Ill
Cardiovascular: Regular Rate and S1/S2
Pulmonary: Non Labored; Negative Wheezes or Rales
Gastrointestinal: Soft, Non Distended and Normal Bowel Sounds
Extremities: Edema
Skin: Warm and Dry; Negative Rash or Jaundice
Wound: Other (surgical sites dressings dry, intact)
Neurological: Other (Resting comfortably)
Objective Data
Lab Data
Lab Results
05/07/24 05:17
05/07/24 05:17
PT 17.8 Sec (11.4-14.6) H 05/06/24 03:46
INR 1.44 05/06/24 03:46
APTT 37.1 Sec (23.4-35.0) H 05/07/24 05:17
Estimated Creat Clear 65 ml/min 05/07/24 05:17
Lactic Acid 1.4 mmol/L (0.7-2.0) 05/02/24 08:21
Total Bilirubin 1.7 mg/dl (0.2-1.3) H 05/07/24 05:17
AST 39 U/L (17-59) 05/07/24 05:17
ALT 27 U/L (0-50) 05/07/24 05:17
Alkaline Phosphatase 211 U/L (38-126) H 05/07/24 05:17
Most recent labs reviewed.
Micro Results:
05/02/24 12:54 Blood Culture - Preliminary
Blood/Venous No Growth in 4 days- Final report to follow
05/02/24 12:37 Blood Culture - Preliminary
Blood/Venous No Growth in 4 days- Final report to follow
05/01/24 20:42 Anaerobic Culture - Preliminary
Abdomen NO ANAEROBES ISOLATED
04/30/24 08:50 Blood Culture - Final
Blood/Venous No Growth - Final Report
04/29/24 06:51 Blood Culture - Final
Blood/Venous Pseudomonas aeruginosa
Gram Stain - Final
04/28/24 13:34 Blood Culture - Final
Blood/Venous Pseudomonas aeruginosa
Gram Stain - Final
04/30/24 09:18 Blood Culture - Final
Blood/Venous No Growth - Final Report
05/01/24 20:42 Wound Culture - Preliminary
Abdomen Pseudomonas aeruginosa
Gram Stain - Preliminary
05/01/24 20:42 Tissue Culture - Final
Tissue Pseudomonas aeruginosa
Gram Stain - Final
05/01/24 20:42 Tissue Culture - Final
Heart Pseudomonas aeruginosa
Gram Stain - Final
04/25/24 15:59 Blood Culture - Final
Blood/Venous Pseudomonas aeruginosa
Gram Stain - Final
04/25/24 15:59 Blood Culture - Final
Blood/Venous Pseudomonas aeruginosa
Gram Stain - Final
04/25/24 17:36 Urine Culture - Final
Urine NO GROWTH
04/26/24 00:04 MRSA Screen - Final
Nose No Methicillin Resistant Staphylococcus aureus isolated.
04/25/24 08:58 Influenza Types A & B (NITIN) - Final
Nasal Swab Negative for Influenza A & B, NAAT
Negative results must be combined with clinical observations
and patient history.
Nucleic Acid Amplification test (NAAT)performed on the
[employer] platform.
Imaging:
04/28/24 CT a/p: Probable enteritis/ileus. Cannot rule out developing small bowel obstruction with questionable transition points as described.
04/28/24 Chest/abd xray: Nonobstructive bowel gas pattern. Mild colonic stool burden.
04/30/24 CT angiogram a/p: Aortobiiliac endograft in place with an interval increase in size of the [place] aneurysm sac around the endograft, interval increase in circumferential wall thickening of the [place] aneurysm, mild retroperitoneal
inflammation, and increased small retroperitoneal lymph nodes. The constellation of findings is suggestive of ACUTE AORTITIS which could be secondary to infection or inflammatory disease.
2. Moderate extrahepatic biliary dilatation with suggestion of an obstructing 1.3 cm intraluminal mass in the distal common bile duct. Diagnostic possibilities are (1) choledocholithiasis or (2) less likely bile duct cancer. Mild wall thickening
and hyperenhancement of the common hepatic and common bile ducts suggesting CHOLANGITIS.
3. Right upper quadrant liver transplant in place with mild pneumobilia in the liver.
--- NOTE | 2024-05-07 11:03 | W.PN.HOSP.TC ---
Addendum entered and electronically signed by Jozef Dickinson DO 05/08/24 10:40:
CDI: Acute hypoxemic respiratory failure s/p VDRF secondary to atelectasis and deconditioning, s/p chest tube
Original Note:
Today's Communication/Plan
-
* Transfer out of ICU.
* Advance diet as tolerated.
* Likely switch to DOAC.
Assessment / Plan
Assessment / Plan
The patient was presented to ER after having 1 episode of large amount diarrhea and his CT abdomen pelvis showed probable enteritis/ileitis. The patient was admitted with a concern of probable sepsis to enteritis and he was started on Zosyn. His
diarrhea diarrhea improved but he has been having ongoing abdominal discomfort as well as constipation. Due to his persistent bacteremia with Pseudomonas aeruginosa, the patient was consulted to ID. It was recommended to have a CT angio pelvis
abdomen for possible aorto bi-iliac stent infection. CT angio abdomen pelvis showed acute aortitis and intraluminal mass in the distal common bile duct. Vascular surgery and gastroenterology team was consulted to assist the patient. The patient
underwent an urgent surgery on 05/01/24 and her infected stent was removed and has a right axillary bifemoral artery bypass on 05/01/2024. The patient was transferred to ICU. The patient was started on vasopressor and extubated on 05/02/24.
Following following, patient started to be gradually hemodynamically stable and vasopressors discontinued.
Problem list
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
CBD mass
Sepsis secondary to AAA stent graft infection vs hepatobiliary infection vs Enteritis/Ileitis
Leukocytosis
CHARISSE
Hypertension
Chronic pain to cervical/lumbar radiculopathy
Paroxysmal atrial fibrillation
History of CAD
History of PVCs
Hx of Alcoholic cirrhosis
Hepatitis C s/p liver transplant in 2006 and [facility] with with ongoing
History of multiple bile duct stents
Abdominal aortic aneurysm s/p repair at [facility]
Hyperlipidemia
Essential hypertension
COPD
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
-Hx of aorto bi iliac stent 19 years ago due AAA at [facility]
-CT angio abdomen: suggestive of acute aortitis
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
-Transfer out of ICU
-Now off vasopressors since evening of 05/02, extubated 05/02
-Pain management
-Aspirin and Plavix on hold
#Generalized Edema
-Given multiple RBC and IV fluids
-Improving
-Continue Furosemide
-Ordered one dose of albumin IV
#Sepsis suspected secondary to AAA stent graft infection vs hepatobiliary infection vs Enteritis/Ileitis
-Continue Cefepime
-Cultures from 04/28 through 05/01 positive for Pseudomonas, cultures from 05/02 no growth to date
-Wound culture positive for Pseudomonas
-Hx of bile duct stent placement-all bile duct stents removed in the past by Dr Short at [facility], per patient`s report, outpatient GI follow-up as needed, no current plans for ERCP this admission
#CBD mass
-History of liver transplantation in 2006 at [facility]-on tacrolimus
-History of multiple bile duct stents-all removed per patient report by Dr Short at [facility]
-GI on board, no plans for ERCP this admission, recommend outpatient GI follow-up
-Hopefully can get MCRP this admission.
#Anemia requiring transfusions
-Suspect secondary to expected surgical blood loss
-Transfused a total of 9 units PRBCs, 2 units FFP, 1 unit of platelets this admission
-Continue to monitor hemoglobin and transfuse further as needed
-Aspirin and Plavix on hold- will ask vascular surgery team to restart if GI is not planning ERCP
#Metabolic acidosis
-Resolved
# Constipation
-Abdominal v-[id number]-zrhyrpefekf series 03/10: Mild stool burden without obstruction findings
-Rectal rectal suppository was given on 04/29
-Continue bowel regimen
-Await return of bowel function
# DM
- Hba1c 7.5
- Continue SSI
- Plan starting metformin on DC
# Hyponatremia
- hypovolemic
- Continue IVF
- Follow BMP
# Acute kidney injury
-Resolved
-Cr 1.3 at likely baseline
-Hold lisinopril
#Essential hypertension
-Metoprolol 100 mg started and planning to up 150 mg with BP/HR monitor
- lisinopril on hold
#Paroxysmal atrial fibrillation
-Eliquis on hold by surgery
-Metoprolol on hold
-Started on heparin
-Transition to DOAC likely today.
# Right-sided cervical radiculopathy and lumbar radiculopathy
-Patient has some pain in his lower back suggesting lumbar radiculopathy
-Strength is preserved
#History of CAD
-Plavix on hold for now with the last dose on 05/01 am
-Statin can e considered to restart
#History of PVCs
#Alcoholic cirrhosis
#Chronic neuropathy
-Continue pregabalin
#COPD
DNR
DVT prophylaxis- heparin
Dispo eventual DC home with HC
Anticipated Discharge: > 48 hours
Subjective/Interval History
-
Date of Service: May 07, 2024
Feeling much better today.
Objective Data
-
Labs:
Laboratory Results
05/07/24
05:17
WBC 17.7 H
Hgb 9.2 L
Hct 26.9 L
Plt Count 211
APTT 37.1 H
Sodium 138
Potassium 3.5
Chloride 106
Carbon Dioxide 26
BUN 29 H
Creatinine 1.3
Glucose 108 H
Calcium 7.8 L
Total Bilirubin 1.7 H
AST 39
ALT 27
Alkaline Phosphatase 211 H
Vital Signs:
Vital Signs
Temp Pulse Resp BP Pulse Ox
98.4 F 70 17 131/58 98
05/07/24 07:48 05/07/24 10:00 05/07/24 10:00 05/07/24 10:00 05/07/24 10:26
I&O
05/06/24 05/07/24 05/08/24
06:59 06:59 06:59
Intake Total 932.8 / 932.8 350 / 830 780 / 780
Output Total 2891 / 2941 2201.5 / 2239.0 437.5 / 437.5
Balance -1958.2 / -2008.2 -1851.5 / -1409.0 342.5 / 342.5
Review of Systems
-
History Source: Patient
EENT: Reports No Symptoms Reported
Respiratory: Reports No Symptoms
Cardiac: Reports No Symptoms
Abdomen/GI: Reports Other (Pain on the left side where he has surgery stiches and chest tube )
Genitourinary: Reports No Symptoms
Musculoskeletal: Reports Edema (seems improved )
Skin: Reports No Symptoms
Physical Exam
-
General: Well Developed, Well Nourished, Pain, Appears Chronically Ill and Obese
HEENT: Normocephalic and Atraumatic
Respiratory: Clear to Auscultation
Cardiac: Regular Rhythm and S1/S2
GI: Soft and Nontender
Musculoskeletal: Edema, Right Upper Extrem, Edema, Left Upper Extrem, Edema, Right Lower Extrem and Edema, Left Lower Extrem
Skin: Warm
Neuro: Awake, Alert, Oriented and AO x 3
[2024-05-07 12:24] LABS: Glucose - Point of Care 134 mg/dl (70-99)
[2024-05-07] MEDS: TOPROL XL 75 MG PO (12:26)
--- NOTE | 2024-05-07 13:34 | PTCARENOTE ---
Repeat chest xray completed. Update with vascular and java systems analyst teams. Return to bed with three assist. Very weak transition to stand. Loose bowel movement noted. Complete bed bath provided with oral cares. 100% of lunch taken, clear tray. Update
with Diabetic team. Continue follow up input outputs. Continue patient teaching and supportive cares.
--- NOTE | 2024-05-07 14:11 | CM ---
CM following re: discharge planning.
Discussed in rounds, reviewed pt's chart, met with pt. Per Rounds meeting, pt is POD#6 Right axillary bifemoral artery bypass, chest tube removed, clear liquid diet, continue supportive care.
PT and OT continue recommending SNF level of care. CM spoke to [facility] program director scouting and she confirmed that pt is accepted for admission to [facility] when medically stable and based on bed availability on the day of discharge.
D/C plan: [facility] when medically stable.
CM will follow to assist pt with discharge to [facility].
--- NOTE | 2024-05-07 14:48 | W.PN.UPDATE ---
Update Note
Progress Note Update
Left chest tube removed earlier by me (on rounds). Occlusive dressing applied. Initial x-ray demonstrated a possible small lucency that could have been a pneumothorax per radiologist report but was not definitively. Repeat x-ray seems to less
indicate any pneumothorax. Will be sure repeat an x-ray this evening and in a.m.
--- NOTE | 2024-05-07 15:11 | PN.CDI ---
CDI
- -
CDI:
Physician Documentation Request
Admit Date: 04/28/24 08:00
Dear Doctor,
Please review the following and provide your response in the progress notes.
Clinical Indicators:
- 05/07 PN 'Hypoxemic respiratory failure s/p VDRF'
- 'Remains on low level of oxygen via nasal cannula, likely secondary to atelectasis and deconditioning''
- 05/02-05/03 5-6L O2, pulse ox > 95%
Please clarify which of the following accurately represents the acuity of the ( DX ). Possible options might include:
Acute hypoxic respiratory failure
Acute pulmonary insufficiency following surgery
Acute on chronic hypoxic respiratory failure
Other (please specify)
Use of terms such as suspected, likely, concern for, or probable (associated with a specific diagnosis that is being evaluated, monitored, or treated as if it exists) are acceptable and can be coded in the inpatient setting, when documented at the
time of discharge.
Thank you,
Iglesia Fuentes RN
CDI Specialist
Please use your independent medical judgment in providing your response.
--- NOTE | 2024-05-07 16:13 | W.PN.INTV ---
Today's Communication / Plan
Recommendations
- Follow-up x-ray post chest tube removal
-Resume metoprolol at half dose of 75 mg
-PT and OT consult
-Patient stable for transfer out of ICU
-Mold Shifter service will sign off, please call if needed
Assessment
-
Assessment: 73-year-old male with a past medical history of alcoholic cirrhosis with hepatitis C virus s/p liver transplantation on tacrolimus ([facility] � 2006), AAA s/p repair ([facility] � 2005), history of hepatitis, CAD with history of [place] (2017)
s/p coronary stent, hypertension, COVID-19 (April 2020), paroxysmal A-fib on Eliquis and a reported history of COPD who presents with fever, runny nose, diarrhea, and reduced appetite. He was feeling unwell for 4 days prior to arrival. He has also
had a mild cough with some shortness of breath. He was diagnosed with a suspected viral enteritis after initial CT abdomen/pelvis on 04/25/2024 showed slightly prominent fluid-filled small bowel loops in the lower abdomen without perforation or
abscess seen. Of note, initial CXR showed no evidence of pneumonia. He was initially admitted to [facility] for further care. Blood cultures became positive due to Pseudomonas. He was initially started on antibiotics on 04/26/2024, and continued with
his tacrolimus. ID consulted on 04/29, and on 04/30 a CTA abdomen/pelvis was performed showing acute aortitis likely related to the aortobiiliac endograft. Given the concern for graft infection, patient was urgently brought to the OR, and on
05/01/2024 Dr. Brannon performed a right axillary bifemoral artery bypass as well as explantation of the entirety of his infected aortic endograft via retroperitoneal incision with oversewing of aortic and iliac systems and wide debridement of his
retroperitoneum. There were no immediate complications, and the patient was transferred to the ICU on the ventilator with security support analyst services consulted for additional management/recommendations. As per the RN, EBL was about 1200 cc.
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
history of PVCs, reported history of COPD
Last 24 hrs:
-Chest tube removed, 05/07. Initial x-ray suggestive of questionable trace pneumothorax, essentially resolved on the follow-up x-ray
Fluid balance, -819 mL
WBC count slightly down at 17.7, stable hemoglobin
Renal function stable, bilirubin improving further to 1.7
Electrolytes unremarkable, albumin low
-Pseudomonas on abdominal cultures
Assessment and plan:
#1. Aortic endograft infection (Pseudomonas), status post right axillary bifemoral arterial bypass with explantation of infected graft wire retroperitoneal incision with oversew.
-Management per vascular surgery
-Continue cefepime for pseudomonal endograft infection
-ID service on case
-Hemodynamically stable, off pressors.
#2. Acute hypoxic respiratory failure, postop. Resolved, currently extubated. Chest tube removed 05/07
-Patient breathing comfortably, x-ray improving
-Responding well to IV Lasix, improving edema
#3. h/o Liver transplant
-Follows up with [facility]
-Continue current dose of Prograf, level 7.9
-Pharmacy to help identify outpatient regimen and contact patient's transplant braille typist
-Daily liver function testing
-Hold Albumin, continue diuresis
#4. DM
-Had been on insulin infusion, transition to subcu glargine and aspart
-DM nurse consult
#5. h/o CAD, sp PCI, Paroxysmal A fib
-Eliquis resumed. Plavix still on hold, timing for resumption per surgery service
-Toprol resumed, at lower dose, titrate as needed
DVT prophylaxis: On Eliquis now
GI prophylaxis: IV pantoprazole
Code status: DNR/DNI
Patient stable for transfer from ICU
Total time spent on this consultation/encounter _35___ minutes which includes review of history, physical exam, medications, laboratory data, personal review of imaging, extensive review of outpatient records, discussion with care team and
respiratory therapy.
Subjective Dataa
Subjective Data
Date of Service:
Date of Service: May 07, 2024
Chief Complaint: Mold Shifter Follow Up
Subjective:
Patient comfortably sitting in bed, no acute distress.
Review of Systems
Genitourinary: Other (All 14 systems reviewed and negative except as stated above in the history of present illness.)
Objective Data
Data Reviewed
Vital Signs / I&O / Oxygen:
Vital Signs
Temp Pulse Resp BP Pulse Ox
97.3 F 73 14 134/63 94
05/07/24 15:24 05/07/24 16:03 05/07/24 15:08 05/07/24 16:03 05/07/24 11:00
Intake and Output
05/06/24 05/07/24 05/08/24
06:59 06:59 06:59
Intake Total 932.8 / 932.8 350 / 830 1320 / 1320
Output Total 2891 / 2941 2201.5 / 2239.0 987.5 / 987.5
Balance -1958.2 / -2008.2 -1851.5 / -1409.0 332.5 / 332.5
SaO2 [A/C] 100
SaO2 94
Nasal Cannula flow liters per 3
minute
Physical Exam
General: Comfortable, Chills (negative) and Sweats (negative)
HEENT: Normocephalic and Anicteric
Cardiovascular: S1-S2 and Peripheral Edema (+3 lower extremity pitting edema bilaterally)
Respiratory: Crackles and Non-Labored Respirations
GI: Soft, Non Tender and Normal Bowel Sounds
Neurology: Awake and Alert
Skin: Warm and Dry
Labs/Micro/Reports
Lab Data
05/07/24 05:17
05/07/24 05:17
Laboratory Results
05/07/24
05:17
APTT 37.1 H
Microbiology
05/02/24 12:54 Blood/Venous Blood Culture - Final
No Growth - Final Report
05/02/24 12:37 Blood/Venous Blood Culture - Final
No Growth - Final Report
05/01/24 20:42 Abdomen Wound Culture - Final
Pseudomonas aeruginosa
05/01/24 20:42 Abdomen Gram Stain - Final
05/01/24 20:42 Abdomen Anaerobic Culture - Final
NO ANAEROBES ISOLATED
04/30/24 08:50 Blood/Venous Blood Culture - Final
No Growth - Final Report
04/29/24 06:51 Blood/Venous Blood Culture - Final
Pseudomonas aeruginosa
04/29/24 06:51 Blood/Venous Gram Stain - Final
04/28/24 13:34 Blood/Venous Blood Culture - Final
Pseudomonas aeruginosa
04/28/24 13:34 Blood/Venous Gram Stain - Final
04/30/24 09:18 Blood/Venous Blood Culture - Final
No Growth - Final Report
[2024-05-07 17:47] LABS: Glucose - Point of Care 110 mg/dl (70-99)
[2024-05-07] MEDS: ELIQUIS 5 MG PO (19:35)
--- NOTE | 2024-05-07 21:23 | PTCARENOTE ---
Pt received start of shift, HR SR w/ PVCs on telemetry. Pt c/o 03/31 pain at incision sites. Surgical sites intact, chest tube dressing site dry+intact. Pt w periods of confusion, occasionally disoriented to time or place. Doppler pulses present.
[2024-05-07 21:44] LABS: Glucose - Point of Care 120 mg/dl (70-99)
[2024-05-08] VITALS (10 sets, daily range): BP systolic 129–151; BP diastolic 56–111; BMI 33.1
[2024-05-08] MEDS: TYLENOL 650 MG PO (01:14)
--- NOTE | 2024-05-08 02:50 | PTCARENOTE ---
Pt w/ period of confusion - pulled midline catheter out and tugging at stat lock for harris catheter. Pt also observed attempting to pick at marija in L abdominal incision site. Two new IVs placed in R arm, stat lock changed, linen and gown change,
CHG bath. L chest tube site dressing reinforced.
[2024-05-08] MEDS: STERILE WATER FOR INJECTION 10 ML IV ×2 (03:09→17:07)
[2024-05-08] MEDS: MAXIPIME 2000 MG IV ×2 (03:09→17:07)
[2024-05-08 03:36] LABS: Hematocrit 26.6 % (39.0-52.0); Mean Corp Hgb Conc. 33.8 g/dL (33.0-37.0); Mean Corpuscular Hgb 31.5 pg (27.0-31.0); Mean Platelet Volume 11.2 fL (7.4-10.4); Platelet Count 204 10^3/uL (130-400); Red Blood Cell Count 2.86 10^6/uL (4.70-6.10); Red Cell Dist. Width 16.7 % (11.5-14.5)
[2024-05-08 03:52] LABS: Blood Urea Nitrogen 26 mg/dl (9-20); Calcium 7.2 mg/dl (8.4-10.2); Carbon Dioxide 23 mmol/L (22-30); Chloride 109 mmol/L (98-107); Estimated Creatinine Clearance 76 ml/min; Glucose 98 mg/dl (70-99); Sodium 138 mmol/L (135-145); Triglycerides 117 mg/dl (10-149); eGFR > 60.00
[2024-05-08] MEDS: KCL 60 MEQ PO (04:42)
[2024-05-08] MEDS: CALCIUM GLUCONATE 100 IV (04:51)
--- NOTE | 2024-05-08 05:01 | PTCARENOTE ---
Ca and K low on AM labs, CLOTHES DRIER REPAIRER aware. Ca IV and K PO repletion - see MAR.
[2024-05-08 07:51] LABS: Glucose - Point of Care 85 mg/dl (70-99)
--- NOTE | 2024-05-08 08:15 | PN.DE.MGMTRT ---
Insulin Management
- -
05/08/2024: Diabetes Management follow up
Patient admitted 04/25 with fever/chills decreased oral intake and diarrhea. PMH including: Paroxysmal A-Fib, CAD, PVCs, alcoholic cirrhosis, hepatitis C s/p liver transplant in 2006 (on immunosuppression), multiple bile duct stents, AAA s/p repair
in 2004, HTN, HLD, COPD chronic tobacco use and T2DM. Prior to admission was taking Metformin 500 mg daily. A1C 7.5%, Cr 1.1, eGFR >60
CT A/P--> enteritis/ileus. Admission blood cultures + Pseudomonas. CT angio showed significant concern for infected aortic endograft and questionable distal common bile duct stone vs mass vs sludge. Pt underwent Right axillary bifemoral artery
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
Pt awake, alert, sitting up in bed, offers no complaints. Able to discuss diabetes care plan.
POD # 6 s/p Right axillary bifemoral artery bypass and explant of entirety of infected aortic endograft
Transitioned from glycemic protocol 05/05 to lantus and novolog.
05/07 Glucose range 108 to 134. Fasting glucose today 98 v, 85 POC.
05/08 AM lantus decreased to 12 units with moderate corrective AC. Tolerating full liquid diet.
Discussed with nurse.
Will follow
Diabetes History
- -
Type of Diabetes: 2
Pre-Admission Diabetes Regimen
05/08/24
03:02
Creatinine 1.1
Lab Results
Hemoglobin A1c 7.5 % (4.0-5.6) H 04/29/24 06:51
Insulin Pump Settings
IP Diabetes Regimen
05/07/24 05/07/24 05/07/24
12:13 17:35 21:33
Glucose
POC Glucose 134 H 110 H 120 H
05/08/24 05/08/24
03:02 07:40
Glucose 98
POC Glucose 85
Meal type: Dinner
Meal type: Lunch
Meal type: Breakfast
Amount consumed: 75%
Amount consumed: 100%
Amount consumed: 100%
Patient Education
[2024-05-08] MEDS: SPIRIVA RESPIMAT 2.5 MCG 2 PUFF INH (08:16)
[2024-05-08] MEDS: ADVAIR HFA 45/21 MCG INHALER 2 PUFF INH ×2 (08:16→19:15)
--- NOTE | 2024-05-08 08:33 | W.PN.VS ---
Addendum entered and electronically signed by Willis Brannon MD 05/08/24 11:53:
Seen and examined with HAROLDO Camargo. Agree with findings as noted below. No events. Patient without significant complaints this morning. Right chest wall incision clean dry and intact. Graft tunnel soft, no significant hematoma. Groin incisions
clean dry and intact bilaterally. Feet warm with dopplerable signals bilaterally. Plan/as discussed and noted below.
Original Note:
Today's Communication / Plan
-
Patient seen and examined at bedside with Dr. Willis Brannon, below plan reviewed with attending.
Assessment/Plan
-
POD 7 Right axillary bifemoral artery bypass with 8 mm ringed [place] Propaten graft.
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
Plan:
-From a vascular surgical perspective okay to DC Vaughn catheter
-Advised placing dry gauze or ABD pad in groin crease while sitting to avoid moisture collection over bilateral groin incisions
-From a vascular surgery perspective okay for downgrade to telemetry
-PT/OT/out of bed
-Antibiotics per ID, will require at least 6 weeks of IV antibiotics with continued p.o. suppression appreciate ID recommendations
-Aspiration precautions
-Encourage incentive spirometry
-Okay to advance diet to regular from a vascular surgical perspective
Subjective Data
-
Date of Service: May 08, 2024
Patient seen and examined at bedside, offers no complaints. Reports well-managed postoperative pain. Tolerating p.o. diet.
Objective Data
-
Vital Signs
Temp Pulse Resp BP Pulse Ox
97.7 F 69 18 132/71 91
05/08/24 03:30 05/08/24 08:20 05/08/24 08:20 05/08/24 06:04 05/08/24 08:20
Intake and Output
05/07/24 05/08/24 05/09/24
06:59 06:59 06:59
Intake Total 350 / 830 2039
Output Total 2201.5 / 2239.0 2387.5 / 2387.5
Balance -1851.5 / -1409.0 -347.5 / -347.5
Intake:
Oral fluids 350 / 830 2039
Output:
CT Output (Total) 110 / 110
Left Lateral 110 / 110
Urine, Vaughn 2091.5 / 2129.0 2387.5 / 2387.5
Lab Results
05/08/24 03:02
05/08/24 03:02
Calcium 7.2 mg/dl (8.4-10.2) L 05/08/24 03:02
Phosphorus 3.0 mg/dl (2.5-4.5) 05/07/24 05:17
Magnesium 1.9 mg/dl (1.6-2.3) 05/07/24 05:17
Total Bilirubin 1.7 mg/dl (0.2-1.3) H 05/07/24 05:17
Direct Bilirubin 1.2 mg/dl (0.0-0.4) H 05/05/24 03:38
AST 39 U/L (17-59) 05/07/24 05:17
ALT 27 U/L (0-50) 05/07/24 05:17
Alkaline Phosphatase 211 U/L (38-126) H 05/07/24 05:17
Total Protein 4.2 g/dl (6.3-8.2) L 05/07/24 05:17
Albumin 1.8 g/dl (3.5-5.0) L 05/07/24 05:17
Physical Exam
-
No apparent distress, resting in bed comfortably, afebrile
No tachycardia
Abdomen soft, rotund
Chest marija CDI, well-approximated
RP abdomen site marija well-approximated and site CDI
Bilateral groin marija CDI and well-approximated
Chest tube removal site CDI
Doppler DP and PTs noted bilaterally
+2/3 pitting edema bilateral lower extremities
[2024-05-08] MEDS: PROGRAF 1.5 MG PO ×2 (08:45→19:59)
[2024-05-08] MEDS: MAGNESIUM OXIDE 500 MG PO ×2 (08:46→19:58)
[2024-05-08] MEDS: ELIQUIS 5 MG PO ×2 (08:46→19:58)
[2024-05-08] MEDS: TOPROL XL 75 MG PO (08:46)
[2024-05-08] MEDS: NSS (PRESERVATIVE FREE) 10 ML IV (08:48)
[2024-05-08] MEDS: LANTUS 0.12 UNITS SC (08:48)
[2024-05-08] MEDS: PROTONIX IV 40 MG IV (08:49)
[2024-05-08] MEDS: LASIX 40 MG IV ×2 (08:49→17:07)
[2024-05-08] MEDS: NOVOLOG FLEXPEN-MODERATE RESISTANCE SC ×3 (08:50→17:12)
--- NOTE | 2024-05-08 09:07 | PTCARENOTE ---
Pt. downgraded to IMU level of care.
Confusion overnight, placed in soft restraints HS.
RX removed upon assessment, slow speech however at this time demonstrates proper safety awareness, verbalized understanding of leaving lines in place and staying in bed until staff arrives to assist him.
wound assessment benign, marija intact, rounds completed with vascular.
Plan of care explained to pt.
--- NOTE | 2024-05-08 10:17 | W.PN.HOSP.TC ---
Today's Communication/Plan
-
* Transfer to IMU.
* Re-start clopidogrel.
* Advance diet as tolerated.
* IV furosemide and replete potassium as needed.
* Continue cefepime.
* PT-OT.
* Incentive spirometry.
Assessment / Plan
Assessment / Plan
The patient was presented to ER after having 1 episode of large amount diarrhea and his CT abdomen pelvis showed probable enteritis/ileitis. The patient was admitted with a concern of probable sepsis to enteritis and he was started on Zosyn. His
diarrhea diarrhea improved but he has been having ongoing abdominal discomfort as well as constipation. Due to his persistent bacteremia with Pseudomonas aeruginosa, the patient was consulted to ID. It was recommended to have a CT angio pelvis
abdomen for possible aorto bi-iliac stent infection. CT angio abdomen pelvis showed acute aortitis and intraluminal mass in the distal common bile duct. Vascular surgery and gastroenterology team was consulted to assist the patient. The patient
underwent an urgent surgery on 05/01/24 and her infected stent was removed and has a right axillary bifemoral artery bypass on 05/01/2024. The patient was transferred to ICU. The patient was started on vasopressor and extubated on 05/02/24.
Following following, patient started to be gradually hemodynamically stable and vasopressors discontinued.
Problem list
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
CBD mass
Sepsis secondary to AAA stent graft infection vs hepatobiliary infection vs Enteritis/Ileitis
Leukocytosis
CHARISSE
Hypertension
Chronic pain to cervical/lumbar radiculopathy
Paroxysmal atrial fibrillation
History of CAD
History of PVCs
Hx of Alcoholic cirrhosis
Hepatitis C s/p liver transplant in 2006 and [facility] with with ongoing
History of multiple bile duct stents
Abdominal aortic aneurysm s/p repair at [facility]
Hyperlipidemia
Essential hypertension
COPD
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
-Hx of aorto bi iliac stent 19 years ago due AAA at [facility]
-CT angio abdomen: suggestive of acute aortitis
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
-Transfer out of ICU
-Now off vasopressors since evening of 05/02, extubated 05/02
-Pain management
-Resume apixaban and clopidogrel.
#Generalized Edema
-Given multiple RBC and IV fluids
-Improving
-Continue Furosemide
#Hypokalemia
-Replete as needed
#Sepsis suspected secondary to AAA stent graft infection vs hepatobiliary infection vs Enteritis/Ileitis
-Continue Cefepime
-Cultures from 04/28 through 05/01 positive for Pseudomonas, cultures from 05/02 no growth to date
-Wound culture positive for Pseudomonas
-Hx of bile duct stent placement-all bile duct stents removed in the past by Dr Short at [facility], per patient`s report, outpatient GI follow-up as needed, no current plans for ERCP this admission
#CBD mass
-History of liver transplantation in 2006 at [facility]-on tacrolimus
-History of multiple bile duct stents-all removed per patient report by Dr Short at [facility]
-GI on board, no plans for ERCP this admission, recommend outpatient GI follow-up
-Hopefully can get MCRP this admission.
#Anemia requiring transfusions
-Suspect secondary to expected surgical blood loss
-Transfused a total of 9 units PRBCs, 2 units FFP, 1 unit of platelets this admission
-Continue to monitor hemoglobin and transfuse further as needed
-Aspirin and Plavix on hold- will ask vascular surgery team to restart if GI is not planning ERCP
#Metabolic acidosis
-Resolved
# Constipation
-Abdominal b-iwg-fztejxkpwnu series 04/28: Mild stool burden without obstruction findings
-Rectal rectal suppository was given on 04/29
-Continue bowel regimen
-Await return of bowel function
# DM
- Hba1c 7.5
- Continue SSI
- Plan starting metformin on DC
# Hyponatremia
- hypovolemic
- Continue IVF
- Follow BMP
# Acute kidney injury
-Resolved
-Cr 1.3 at likely baseline
-Hold lisinopril
#Essential hypertension
-Metoprolol 100 mg started and planning to up 150 mg with BP/HR monitor
- lisinopril on hold
#Paroxysmal atrial fibrillation
-Eliquis on hold by surgery
-Metoprolol on hold
-Started on heparin
-Transition to DOAC likely today.
# Right-sided cervical radiculopathy and lumbar radiculopathy
-Patient has some pain in his lower back suggesting lumbar radiculopathy
-Strength is preserved
#History of CAD
-Plavix on hold for now with the last dose on 05/01 am
-Statin can e considered to restart
#History of PVCs
#Alcoholic cirrhosis
#Chronic neuropathy
-Continue pregabalin
#COPD
DNR
DVT prophylaxis- heparin
Dispo eventual DC home with HC
Anticipated Discharge: 24 - 48 hours
Subjective/Interval History
-
Date of Service: May 08, 2024
Objective Data
-
Labs:
Laboratory Results
05/08/24
03:02
WBC 19.0 H
Hgb 9.0 L
Hct 26.6 L
Plt Count 204
Sodium 138
Potassium 3.0 L
Chloride 109 H
Carbon Dioxide 23
BUN 26 H
Creatinine 1.1
Glucose 98
Calcium 7.2 L
Vital Signs:
Vital Signs
Temp Pulse Resp BP Pulse Ox
97.6 F 74 23 133/70 96
05/08/24 07:52 05/08/24 09:00 05/08/24 09:00 05/08/24 08:49 05/08/24 09:37
I&O
05/07/24 05/08/24 05/09/24
06:59 06:59 06:59
Intake Total 350 / 830 2040 / 2040 260 / 260
Output Total 2201.5 / 2239.0 2387.5 / 2387.5 300 / 300
Balance -1851.5 / -1409.0 -347.5 / -347.5 -40 / -40
Review of Systems
-
History Source: Patient
EENT: Reports No Symptoms Reported
Respiratory: Reports No Symptoms
Cardiac: Reports No Symptoms
Abdomen/GI: Reports Other (Pain on the left side where he has surgery stiches and chest tube )
Genitourinary: Reports No Symptoms
Musculoskeletal: Reports Edema (seems improved )
Skin: Reports No Symptoms
Physical Exam
-
General: Well Developed, Well Nourished, Pain, Appears Chronically Ill and Obese
HEENT: Normocephalic and Atraumatic
Respiratory: Clear to Auscultation
Cardiac: Regular Rhythm and S1/S2
GI: Soft and Nontender
Musculoskeletal: Edema, Right Upper Extrem, Edema, Left Upper Extrem, Edema, Right Lower Extrem and Edema, Left Lower Extrem
Skin: Warm
Neuro: Awake, Alert, Oriented and AO x 3
[2024-05-08] MEDS: KLOR-CON 40 MEQ PO (10:35)
[2024-05-08 11:54] LABS: Glucose - Point of Care 134 mg/dl (70-99)
[2024-05-08] MEDS: PLAVIX 75 MG PO (12:35)
--- NOTE | 2024-05-08 15:30 | W.PN.ID1 ---
Date of Service
Date of Service: May 08, 2024
Today's Communication
Continue antibiotics.
Assessment / Plan
# Pseudomonas bacteremia- source from infected stent grafts and/or biliary duct obstruction
- BC's negative from 04/30 onward
# AAA stent graft infection.
hx AAA s/p aortobi-iliac stent graft (at [facility])
CTA: acute aortitis
# Biliary obstruction with intraluminal mass in CBD
# Leukocytosis - trending down
# Hx liver transplant; on tacrolimus
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
- QTc has been acceptable
- 04/30 blood cultures - NGTD
- 05/02 blood cultures - NGTD
- 05/01 tissue cultures from the OR - Pseudomonas
- Appreciate Vascular
- Appreciate GI - ERCP currently on hold and may be done outpatient
--> Continue cefepime 2 gm IV q12h
--> will plan a course of IV therapy followed by suppressive antibiotics
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
Paroxysmal atrial fibrillation
CAD
Hypertension
Neuropathy
COPD
AAA s/p aortobi-iliac stent graft
Cholecystectomy
Back surgery
History of multiple bile duct stents
Chief Complaint
-: Leukocytosis and Bacteremia
Subjective / Review of Systems
Review of Systems: No Fever and No Chills
Vital Signs / Physical Exam
Vital Signs
Vital Signs
Temp Pulse Resp BP Pulse Ox
98.4 F 80 23 130/98 96
05/08/24 11:21 05/08/24 12:00 05/08/24 12:00 05/08/24 12:00 05/08/24 09:37
Physical Exam
Constitutional: No Acute Distress, Comfortable and Chronically Ill
Cardiovascular: Regular Rate and S1/S2; Negative S3/S4
Pulmonary: Non Labored
Gastrointestinal: Soft, Non Distended and Normal Bowel Sounds
Extremities: Edema
Skin: Warm and Dry; Negative Rash or Jaundice
Wound: Other (surgical sites dressings dry, intact)
Neurological: Other (Resting comfortably)
Psychological: Confused
Objective Data
Lab Data
Lab Results
05/08/24 03:02
05/08/24 03:02
PT 17.8 Sec (11.4-14.6) H 05/06/24 03:46
INR 1.44 05/06/24 03:46
APTT 37.1 Sec (23.4-35.0) H 05/07/24 05:17
Estimated Creat Clear 76 ml/min 05/08/24 03:02
Lactic Acid 1.4 mmol/L (0.7-2.0) 05/02/24 08:21
Total Bilirubin 1.7 mg/dl (0.2-1.3) H 05/07/24 05:17
AST 39 U/L (17-59) 05/07/24 05:17
ALT 27 U/L (0-50) 05/07/24 05:17
Alkaline Phosphatase 211 U/L (38-126) H 05/07/24 05:17
Most recent labs reviewed.
Micro Results:
05/02/24 12:54 Blood Culture - Final
Blood/Venous No Growth - Final Report
05/02/24 12:37 Blood Culture - Final
Blood/Venous No Growth - Final Report
05/01/24 20:42 Wound Culture - Final
Abdomen Pseudomonas aeruginosa
Gram Stain - Final
05/01/24 20:42 Anaerobic Culture - Final
Abdomen NO ANAEROBES ISOLATED
04/30/24 08:50 Blood Culture - Final
Blood/Venous No Growth - Final Report
04/29/24 06:51 Blood Culture - Final
Blood/Venous Pseudomonas aeruginosa
Gram Stain - Final
04/28/24 13:34 Blood Culture - Final
Blood/Venous Pseudomonas aeruginosa
Gram Stain - Final
04/30/24 09:18 Blood Culture - Final
Blood/Venous No Growth - Final Report
05/01/24 20:42 Tissue Culture - Final
Tissue Pseudomonas aeruginosa
Gram Stain - Final
05/01/24 20:42 Tissue Culture - Final
Heart Pseudomonas aeruginosa
Gram Stain - Final
04/25/24 15:59 Blood Culture - Final
Blood/Venous Pseudomonas aeruginosa
Gram Stain - Final
04/25/24 15:59 Blood Culture - Final
Blood/Venous Pseudomonas aeruginosa
Gram Stain - Final
04/25/24 17:36 Urine Culture - Final
Urine NO GROWTH
04/26/24 00:04 MRSA Screen - Final
Nose No Methicillin Resistant Staphylococcus aureus isolated.
04/25/24 08:58 Influenza Types A & B (NITIN) - Final
Nasal Swab Negative for Influenza A & B, NAAT
Negative results must be combined with clinical observations
and patient history.
Nucleic Acid Amplification test (NAAT)performed on the
[employer] platform.
Imaging:
04/28/24 CT a/p: Probable enteritis/ileus. Cannot rule out developing small bowel obstruction with questionable transition points as described.
04/28/24 Chest/abd xray: Nonobstructive bowel gas pattern. Mild colonic stool burden.
04/30/24 CT angiogram a/p: Aortobiiliac endograft in place with an interval increase in size of the [place] aneurysm sac around the endograft, interval increase in circumferential wall thickening of the [place] aneurysm, mild retroperitoneal
inflammation, and increased small retroperitoneal lymph nodes. The constellation of findings is suggestive of ACUTE AORTITIS which could be secondary to infection or inflammatory disease.
2. Moderate extrahepatic biliary dilatation with suggestion of an obstructing 1.3 cm intraluminal mass in the distal common bile duct. Diagnostic possibilities are (1) choledocholithiasis or (2) less likely bile duct cancer. Mild wall thickening
and hyperenhancement of the common hepatic and common bile ducts suggesting CHOLANGITIS.
3. Right upper quadrant liver transplant in place with mild pneumobilia in the liver.
--- NOTE | 2024-05-08 15:56 | PTCARENOTE ---
Per vascular during rounds, harris may be removed after diuresing.
Harris removed.
[2024-05-08 17:05] LABS: Glucose - Point of Care 92 mg/dl (70-99)
[2024-05-08] MEDS: DILAUDID 0.5 MG IV ×2 (17:10→20:05)
[2024-05-08] MEDS: PROTONIX 40 MG PO (19:59)
[2024-05-08] MEDS: DEXTROSE 50% SYRINGE 12.5 GRAMS IV (21:48)
[2024-05-08 21:58] LABS: Glucose - Point of Care 60 mg/dl (70-99)
[2024-05-08 22:19] LABS: Glucose - Point of Care 126 mg/dl (70-99)
--- NOTE | 2024-05-08 22:23 | PTCARENOTE ---
Patient restless, slow speech and confused to situation and time. Taking off pulse ox and gown. Picking at marija. Grimacing when turning in bed. PRN Dilaudid provided per MAR. Appears pt is grimacing less after Dilaudid. HS blood sugar 60.
Dextrose IV given PRN. Repeat sugar 126. Pt less restless after dextrose. but still forgetful. Pt incont of urine in diaper. Pt cleaned. CHG done. Post void residual bladder scan showing 210mL.
Pt resting with eyes closed, respirations even and unlabored. Bed alarm set for safety.
Call costa within reach.
[2024-05-09] VITALS (10 sets, daily range): BP systolic 91–157; BP diastolic 58–71; BMI 32.1
[2024-05-09] MEDS: DEXTROSE 50% SYRINGE 12.5 GRAMS IV (00:25)
[2024-05-09 00:33] LABS: Glucose - Point of Care 56 mg/dl (70-99)
[2024-05-09 01:02] LABS: Glucose - Point of Care 96 mg/dl (70-99)
[2024-05-09 02:47] LABS: Glucose - Point of Care 102 mg/dl (70-99)
[2024-05-09 04:12] LABS: Glucose - Point of Care 87 mg/dl (70-99)
[2024-05-09] MEDS: STERILE WATER FOR INJECTION 10 ML IV (04:28)
[2024-05-09] MEDS: MAXIPIME 2000 MG IV (04:28)
[2024-05-09 04:33] LABS: Hematocrit 25.3 % (39.0-52.0); Hemoglobin 8.5 g/dL (13.0-18.0); Mean Corp Hgb Conc. 33.6 g/dL (33.0-37.0); Mean Corpuscular Hgb 31.6 pg (27.0-31.0); Mean Corpuscular Volume 94.1 fL (80.0-94.0); Mean Platelet Volume 10.7 fL (7.4-10.4); Platelet Count 197 10^3/uL (130-400); Red Blood Cell Count 2.69 10^6/uL (4.70-6.10); White Blood Cell Count 19.8 10^3/uL (4.8-10.8)
[2024-05-09 05:07] LABS: Blood Urea Nitrogen 25 mg/dl (9-20); Carbon Dioxide 23 mmol/L (22-30); Chloride 110 mmol/L (98-107); Estimated Creatinine Clearance 82 ml/min; Glucose 93 mg/dl (70-99); Potassium 3.9 mmol/L (3.5-5.1); Sodium 139 mmol/L (135-145); eGFR > 60.00
[2024-05-09] MEDS: ADVAIR HFA 45/21 MCG INHALER 2 PUFF INH ×2 (07:17→19:24)
[2024-05-09] MEDS: SPIRIVA RESPIMAT 2.5 MCG 2 PUFF INH (07:17)
[2024-05-09] MEDS: PROTONIX 40 MG PO ×2 (07:34→20:02)
[2024-05-09] MEDS: TOPROL XL 75 MG PO (07:35)
[2024-05-09] MEDS: PROGRAF 1.5 MG PO ×2 (07:35→20:02)
[2024-05-09] MEDS: MAGNESIUM OXIDE 500 MG PO ×2 (07:35→20:02)
[2024-05-09] MEDS: PLAVIX 75 MG PO (07:35)
[2024-05-09] MEDS: ELIQUIS 5 MG PO ×2 (07:36→20:02)
[2024-05-09] MEDS: LASIX 40 MG IV ×2 (07:36→16:26)
[2024-05-09 07:38] LABS: Glucose - Point of Care 77 mg/dl (70-99)
[2024-05-09] MEDS: NOVOLOG FLEXPEN-MODERATE RESISTANCE SC ×3 (07:58→17:19)
--- NOTE | 2024-05-09 08:19 | PN.DE.MGMTRT ---
Insulin Management
- -
05/09/2024: Diabetes Management follow up
Patient admitted 04/25 with fever/chills decreased oral intake and diarrhea. PMH including: Paroxysmal A-Fib, CAD, PVCs, alcoholic cirrhosis, hepatitis C s/p liver transplant in 2006 (on immunosuppression), multiple bile duct stents, AAA s/p repair
in 2004, HTN, HLD, COPD chronic tobacco use and T2DM. Prior to admission was taking Metformin 500 mg daily. A1C 7.5%, Cr 1.1, eGFR >60
CT A/P--> enteritis/ileus. Admission blood cultures + Pseudomonas. CT angio showed significant concern for infected aortic endograft and questionable distal common bile duct stone vs mass vs sludge. Pt underwent Right axillary bifemoral artery
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
Pt sleeping comfortably, Dtr- Akanksha at bedside, states patient has been very tired and is not eating much. Pt is unable to discuss diabetes care plan.
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
Transitioned from glycemic protocol 3 to Lantus and NovoLog. 3 AM Lantus decreased to 12 units with moderate corrective AC.
3 Glucose range 85 to 134. Noted for recurrent hypoglycemia overnight, treated twice. Fasting glucose today 93 V, 85 POC.
Tolerated full liquid diet, advanced to 2200 omari this morning, will change to 2000 omari.
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 Will STOP Lantus. Start Farxiga 10mg daily. Resume Metformin at increased dose 1000mg BID, 1st dose in AM
Discussed with nurse. Will cont to follow
Diabetes History
- -
Type of Diabetes: 2
Pre-Admission Diabetes Regimen
05/09/24
04:24
Creatinine 1.0
Lab Results
Hemoglobin A1c 7.5 % (4.0-5.6) H 04/29/24 06:51
Insulin Pump Settings
IP Diabetes Regimen
05/08/24 05/08/24 05/08/24
11:43 16:53 21:46
Glucose
POC Glucose 134 H 92 60 L
05/08/24 05/09/24 05/09/24
22:07 00:21 00:50
Glucose
POC Glucose 126 H 56 L 96
05/09/24 05/09/24 05/09/24
02:28 04:09 04:24
Glucose 93
POC Glucose 102 H 87
05/09/24
07:27
Glucose
POC Glucose 77
Meal type: Lunch
Meal type: Breakfast
Amount consumed: Patient refused
Amount consumed: 50%
Patient Education
--- NOTE | 2024-05-09 08:39 | W.PN.ID1 ---
Addendum entered and electronically signed by Wally Jose DO 05/09/24 12:08:
I saw and evaluated the patient. I reviewed the resident�s note and agree with findings and plan as documented in the resident�s note.
Discussed with Nursing. Patient with ongoing encephalopathy of unclear etiology.
Will transition back to Zosyn given possibility of cefepime induced encephalopathy.
Continue to monitor white count and temperature curve.
Original Note:
Date of Service
Date of Service: May 09, 2024
Today's Communication
discontinue cefepime
switch to zosyn
Assessment / Plan
# Pseudomonas bacteremia- source from infected stent grafts and/or biliary duct obstruction
- BC's negative from 04/30 onward
# AAA stent graft infection.
hx AAA s/p aortobi-iliac stent graft (at [facility])
CTA: acute aortitis
# Biliary obstruction with intraluminal mass in CBD
# Leukocytosis - trending down
# Hx liver transplant; on tacrolimus
#New mental status change
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
- QTc has been acceptable
- 04/30 blood cultures - NGTD
- 05/02 blood cultures - NGTD
- 05/01 tissue cultures from the OR - Pseudomonas
- Appreciate Vascular
- Appreciate GI - ERCP currently on hold and may be done outpatient
- Patient is delirious possibly due to cefepime. Will discontinue cefepime and switch to Zosyn 4.5g Q6
- will plan a course of IV therapy followed by suppressive antibiotics
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
Paroxysmal atrial fibrillation
CAD
Hypertension
Neuropathy
COPD
AAA s/p aortobi-iliac stent graft
Cholecystectomy
Back surgery
History of multiple bile duct stents
Chief Complaint
-: Leukocytosis and Bacteremia
Subjective / Review of Systems
Review of Systems: No Fever, No Chills and No Headache
Vital Signs / Physical Exam
Vital Signs
Vital Signs
Temp Pulse Resp BP Pulse Ox
98.1 F 80 18 157/65 94
05/09/24 08:20 05/09/24 07:36 05/09/24 07:20 05/09/24 07:36 05/09/24 07:20
Physical Exam
Constitutional: No Acute Distress, Comfortable and Chronically Ill
Eyes: No Conjunctival Hemorrhage and Sclera Anicteric
Cardiovascular: Regular Rate and S1/S2; Negative S3/S4
Pulmonary: Non Labored
Gastrointestinal: Soft, Non Distended and Normal Bowel Sounds
Genito-Urinary: Negative CVA Tenderness
Extremities: Edema
Musculoskeletal: Negative Spinal Tenderness
Skin: Warm and Dry; Negative Rash or Jaundice
Wound: Other (surgical sites dressings dry, intact)
Neurological: Other (Resting comfortably)
Psychological: Confused
Objective Data
Lab Data
Lab Results
05/09/24 04:24
05/09/24 04:24
PT 17.8 Sec (11.4-14.6) H 05/06/24 03:46
INR 1.44 05/06/24 03:46
APTT 37.1 Sec (23.4-35.0) H 05/07/24 05:17
Estimated Creat Clear 82 ml/min 05/09/24 04:24
Lactic Acid 1.4 mmol/L (0.7-2.0) 05/02/24 08:21
Total Bilirubin 1.7 mg/dl (0.2-1.3) H 05/07/24 05:17
AST 39 U/L (17-59) 05/07/24 05:17
ALT 27 U/L (0-50) 05/07/24 05:17
Alkaline Phosphatase 211 U/L (38-126) H 05/07/24 05:17
Most recent labs reviewed.
Micro Results:
05/02/24 12:54 Blood Culture - Final
Blood/Venous No Growth - Final Report
05/02/24 12:37 Blood Culture - Final
Blood/Venous No Growth - Final Report
05/01/24 20:42 Wound Culture - Final
Abdomen Pseudomonas aeruginosa
Gram Stain - Final
05/01/24 20:42 Anaerobic Culture - Final
Abdomen NO ANAEROBES ISOLATED
04/30/24 08:50 Blood Culture - Final
Blood/Venous No Growth - Final Report
04/29/24 06:51 Blood Culture - Final
Blood/Venous Pseudomonas aeruginosa
Gram Stain - Final
04/28/24 13:34 Blood Culture - Final
Blood/Venous Pseudomonas aeruginosa
Gram Stain - Final
04/30/24 09:18 Blood Culture - Final
Blood/Venous No Growth - Final Report
05/01/24 20:42 Tissue Culture - Final
Tissue Pseudomonas aeruginosa
Gram Stain - Final
05/01/24 20:42 Tissue Culture - Final
Heart Pseudomonas aeruginosa
Gram Stain - Final
04/25/24 15:59 Blood Culture - Final
Blood/Venous Pseudomonas aeruginosa
Gram Stain - Final
04/25/24 15:59 Blood Culture - Final
Blood/Venous Pseudomonas aeruginosa
Gram Stain - Final
04/25/24 17:36 Urine Culture - Final
Urine NO GROWTH
04/26/24 00:04 MRSA Screen - Final
Nose No Methicillin Resistant Staphylococcus aureus isolated.
04/25/24 08:58 Influenza Types A & B (NITIN) - Final
Nasal Swab Negative for Influenza A & B, NAAT
Negative results must be combined with clinical observations
and patient history.
Nucleic Acid Amplification test (NAAT)performed on the
[employer] platform.
Imaging:
04/28/24 CT a/p: Probable enteritis/ileus. Cannot rule out developing small bowel obstruction with questionable transition points as described.
04/28/24 Chest/abd xray: Nonobstructive bowel gas pattern. Mild colonic stool burden.
04/30/24 CT angiogram a/p: Aortobiiliac endograft in place with an interval increase in size of the cantwell aneurysm sac around the endograft, interval increase in circumferential wall thickening of the cantwell aneurysm, mild retroperitoneal
inflammation, and increased small retroperitoneal lymph nodes. The constellation of findings is suggestive of ACUTE AORTITIS which could be secondary to infection or inflammatory disease.
2. Moderate extrahepatic biliary dilatation with suggestion of an obstructing 1.3 cm intraluminal mass in the distal common bile duct. Diagnostic possibilities are (1) choledocholithiasis or (2) less likely bile duct cancer. Mild wall thickening
and hyperenhancement of the common hepatic and common bile ducts suggesting CHOLANGITIS.
3. Right upper quadrant liver transplant in place with mild pneumobilia in the liver.
[2024-05-09] MEDS: LANTUS 0.12 UNITS SC (09:13)
[2024-05-09 09:17] LABS: Glucose - Point of Care 129 mg/dl (70-99)
--- NOTE | 2024-05-09 09:35 | W.PN.VS ---
Addendum entered and electronically signed by Gamaliel Vaughn III, MD 05/09/24 10:57:
This patient was seen and examined in collaboration with GUILLERMO Moser. I agree with the history and physical exam as well as the assessment and plan. I have the following additions:
Overall positive clinical trajectory postoperatively
Call with questions or concerns
Signed:
Gamaliel Vaughn III, MD
[facility] Vascular Surgery
[phone] (cell)
Original Note:
Today's Communication / Plan
-
Patient seen and examined at bedside with Dr. Gamaliel Vaughn III, below plan reviewed with attending.
Assessment/Plan
-
POD 8 Right axillary bifemoral artery bypass with 8 mm ringed Vallecitos Propaten graft.
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
Plan:
-Advised placing dry gauze or ABD pad in groin crease while sitting to avoid moisture collection over bilateral groin incisions
-From a vascular surgery perspective okay for downgrade to telemetry
-PT/OT/out of bed
-Antibiotics per ID, will require at least 6 weeks of IV antibiotics with continued p.o. suppression appreciate ID recommendations
-Aspiration precautions
-Encourage incentive spirometry
Subjective Data
-
Date of Service: May 09, 2024
Patient seen and examined at bedside, offers no complaints and endorses tolerating p.o. diet. Denies nausea, vomiting, fever, and chills.
Objective Data
-
Vital Signs
Temp Pulse Resp BP Pulse Ox
98.1 F 80 18 157/65 94
05/09/24 08:20 05/09/24 07:36 05/09/24 07:20 05/09/24 07:36 05/09/24 07:20
Intake and Output
05/08/24 05/09/24 05/10/24
06:59 06:59 06:59
Intake Total 2039 380 / 380
Output Total 2387.5 / 2387.5 2029
Balance -347.5 / -347.5 -1650 / -1650
Intake:
Oral fluids 2039 320 / 320
IV piggybacks 60 60
Output:
Urine, Vaughn 2387.5 / 2387.5 2029
Urine, Voided 0 / 0
Other:
How many times incontinent 1
SMALL amount urine
How many times incontinent 1
MODERATE amount urine
Lab Results
05/09/24 04:24
05/09/24 04:24
Calcium 8.0 mg/dl (8.4-10.2) L 05/09/24 04:24
Phosphorus 3.0 mg/dl (2.5-4.5) 05/07/24 05:17
Magnesium 1.9 mg/dl (1.6-2.3) 05/07/24 05:17
Total Bilirubin 1.7 mg/dl (0.2-1.3) H 05/07/24 05:17
Direct Bilirubin 1.2 mg/dl (0.0-0.4) H 05/05/24 03:38
AST 39 U/L (17-59) 05/07/24 05:17
ALT 27 U/L (0-50) 05/07/24 05:17
Alkaline Phosphatase 211 U/L (38-126) H 05/07/24 05:17
Total Protein 4.2 g/dl (6.3-8.2) L 05/07/24 05:17
Albumin 1.8 g/dl (3.5-5.0) L 05/07/24 05:17
Physical Exam
-
No apparent distress, resting in bed comfortably, afebrile
No tachycardia
Abdomen soft, rotund
Chest marija CDI, well-approximated
RP abdomen site marija well-approximated and site CDI
Bilateral groin marija CDI and well-approximated
Chest tube removal site CDI
Doppler DP and PTs noted bilaterally
+2/3 pitting edema bilateral lower extremities
--- NOTE | 2024-05-09 09:44 | PTCARENOTE ---
Dressing covering CT site with copious drainage - area cleaned gently with saline soaked gauze; Redressed with 4x4's, ABD and tape. Will continue to monitor.
--- NOTE | 2024-05-09 10:44 | W.PN.HOSP.TC ---
Today's Communication/Plan
-
* Transfer to IMU.
* IV furosemide and replete potassium as needed.
* Continue cefepime.
* PT-OT.
* Incentive spirometry.
Assessment / Plan
Assessment / Plan
The patient was presented to ER after having 1 episode of large amount diarrhea and his CT abdomen pelvis showed probable enteritis/ileitis. The patient was admitted with a concern of probable sepsis to enteritis and he was started on Zosyn. His
diarrhea diarrhea improved but he has been having ongoing abdominal discomfort as well as constipation. Due to his persistent bacteremia with Pseudomonas aeruginosa, the patient was consulted to ID. It was recommended to have a CT angio pelvis
abdomen for possible aorto bi-iliac stent infection. CT angio abdomen pelvis showed acute aortitis and intraluminal mass in the distal common bile duct. Vascular surgery and gastroenterology team was consulted to assist the patient. The patient
underwent an urgent surgery on 05/01/24 and her infected stent was removed and has a right axillary bifemoral artery bypass on 05/01/2024. The patient was transferred to ICU. The patient was started on vasopressor and extubated on 05/02/24.
Following following, patient started to be gradually hemodynamically stable and vasopressors discontinued.
Problem list
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
CBD mass
Sepsis secondary to AAA stent graft infection vs hepatobiliary infection vs Enteritis/Ileitis
Leukocytosis
CHARISSE
Hypertension
Chronic pain to cervical/lumbar radiculopathy
Paroxysmal atrial fibrillation
History of CAD
History of PVCs
Hx of Alcoholic cirrhosis
Hepatitis C s/p liver transplant in 2006 and [facility] with with ongoing
History of multiple bile duct stents
Abdominal aortic aneurysm s/p repair at [facility]
Hyperlipidemia
Essential hypertension
COPD
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
-Hx of aorto bi iliac stent 19 years ago due AAA at [facility]
-CT angio abdomen: suggestive of acute aortitis
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
-Transfer out of ICU
-Now off vasopressors since evening of 05/02, extubated 05/02
-Pain management
-Resume apixaban and clopidogrel.
#Generalized Edema
-Given multiple RBC and IV fluids
-Improving
-Continue Furosemide
#Hypokalemia
-Replete as needed
#Sepsis suspected secondary to AAA stent graft infection vs hepatobiliary infection vs Enteritis/Ileitis
-Continue Cefepime
-Cultures from 04/28 through 05/01 positive for Pseudomonas, cultures from 05/02 no growth to date
-Wound culture positive for Pseudomonas
-Hx of bile duct stent placement-all bile duct stents removed in the past by Dr Short at [facility], per patient`s report, outpatient GI follow-up as needed, no current plans for ERCP this admission
#CBD mass
-History of liver transplantation in 2006 at [facility]-on tacrolimus
-History of multiple bile duct stents-all removed per patient report by Dr Short at [facility]
-GI on board, no plans for ERCP this admission, recommend outpatient GI follow-up
-Hopefully can get MCRP this admission.
#Anemia requiring transfusions
-Suspect secondary to expected surgical blood loss
-Transfused a total of 9 units PRBCs, 2 units FFP, 1 unit of platelets this admission
-Continue to monitor hemoglobin and transfuse further as needed
-Aspirin and Plavix on hold- will ask vascular surgery team to restart if GI is not planning ERCP
#Metabolic acidosis
-Resolved
# Constipation
-Abdominal i-yfi-lhanhdtnnxw series 04/28: Mild stool burden without obstruction findings
-Rectal rectal suppository was given on 04/29
-Continue bowel regimen
-Await return of bowel function
# DM
- Hba1c 7.5
- Continue SSI
- Plan starting metformin on DC
# Hyponatremia
- hypovolemic
- Continue IVF
- Follow BMP
# Acute kidney injury
-Resolved
-Cr 1.3 at likely baseline
-Hold lisinopril
#Essential hypertension
-Metoprolol 100 mg started and planning to up 150 mg with BP/HR monitor
- lisinopril on hold
#Paroxysmal atrial fibrillation
-Eliquis on hold by surgery
-Metoprolol on hold
-Started on heparin
-Transition to DOAC likely today.
# Right-sided cervical radiculopathy and lumbar radiculopathy
-Patient has some pain in his lower back suggesting lumbar radiculopathy
-Strength is preserved
#History of CAD
-Plavix on hold for now with the last dose on 05/01 am
-Statin can e considered to restart
#History of PVCs
#Alcoholic cirrhosis
#Chronic neuropathy
-Continue pregabalin
#COPD
DNR
DVT prophylaxis- heparin
Dispo eventual DC home with HC
Anticipated Discharge: > 48 hours
Subjective/Interval History
-
Date of Service: May 09, 2024
Stable and doing okay.
Objective Data
-
Labs:
Laboratory Results
05/09/24
04:24
WBC 19.8 H
Hgb 8.5 L
Hct 25.3 L
Plt Count 197
Sodium 139
Potassium 3.9 D
Chloride 110 H
Carbon Dioxide 23
BUN 25 H
Creatinine 1.0
Glucose 93
Calcium 8.0 L
Vital Signs:
Vital Signs
Temp Pulse Resp BP Pulse Ox
98.1 F 80 18 157/65 94
03/21/25 08:20 05/09/24 07:36 05/09/24 07:20 05/09/24 07:36 05/09/24 07:20
I&O
05/08/24 05/09/24 05/10/24
06:59 06:59 06:59
Intake Total 2039 380 / 380
Output Total 2387.5 / 2387.5 2029
Balance -347.5 / -347.5 -1650 / -1649
Review of Systems
-
History Source: Patient
EENT: Reports No Symptoms Reported
Respiratory: Reports No Symptoms
Cardiac: Reports No Symptoms
Genitourinary: Reports No Symptoms
Musculoskeletal: Reports Edema (seems improved )
Skin: Reports No Symptoms
Physical Exam
-
General: No Apparent Distress and Comfortable
HEENT: Normocephalic, Atraumatic, Moist Mucous Membranes, Anicteric and No Ptosis
Respiratory: Clear to Auscultation and Non Labored Respirations
Cardiac: Regular Rhythm and S1/S2
GI: Soft, Nontender and Nondistended
Genito-urinary: No Costovertebral Tender
Musculoskeletal: No Clubbing, No Cyanosis, Edema, Right Lower Extrem (1+) and Edema, Left Lower Extrem (1+)
Skin: Warm and IV Access / Catheter Site
Neuro: Awake, Alert, Oriented and AO x 3
Hematologic / Lymphatic: No Lymphadenopathy
Psych: Calm, Intact Judgement/Insight and Other (sleepy)
--- NOTE | 2024-05-09 11:30 | CM ---
CM following re: discharge planning.
Discussed in rounds, reviewed pt's chart, met with pt. Per Rounds meeting, pt is POD#8 Right axillary bifemoral artery bypass, chest tube removed, clear liquid diet, continue supportive care.
PT and OT continue recommending SNF level of care. [facility] social director and she confirmed that pt is accepted for admission to [facility] when medically stable and based on bed availability on the day of discharge.
D/C plan: [facility] when medically stable.
CM will follow to assist pt with discharge to [facility].
--- NOTE | 2024-05-09 11:41 | PTCARENOTE ---
Noted worsening confusion today. Pt not answering verbally to any questions, occasionally will shake his head yes/no; Poor daniel, will eat a little bit if fed but refuses to feed self. Will continue to monitor and assess.
[2024-05-09 12:05] LABS: Glucose - Point of Care 131 mg/dl (70-99)
[2024-05-09] MEDS: ZOSYN 100 IV ×2 (12:52→17:31)
[2024-05-09] MEDS: STERILE WATER FOR INJECTION IV (16:30)
[2024-05-09] MEDS: DILAUDID 0.5 MG IV ×2 (16:33→22:25)
[2024-05-09 17:24] LABS: Glucose - Point of Care 118 mg/dl (70-99)
--- NOTE | 2024-05-09 20:53 | PTCARENOTE ---
Pt is Alert, otherwise seems confused, withdrawn, and flat. He follows commands to an extent, answers questions sparingly but appropriate. Other times pt has a blank stare with no conversation. NSR/SB with PVC on monitor. Room air, lungs diminished.
Incontinent of bowel and bladder. IVs patent. Dressings are CDI at at the moment. Granddaughter is at bedside.
[2024-05-09 21:40] LABS: Glucose - Point of Care 120 mg/dl (70-99)
[2024-05-10] VITALS (8 sets, daily range): BP systolic 98–153; BP diastolic 50–96; BMI 31.8
[2024-05-10] MEDS: ZOSYN 100 IV ×4 (00:25→18:02)
[2024-05-10] MEDS: STERILE WATER FOR INJECTION IV ×2 (03:11→16:00)
[2024-05-10] MEDS: DILAUDID 0.5 MG IV ×2 (05:21→20:33)
[2024-05-10] MEDS: PROTONIX 40 MG PO ×2 (07:43→20:24)
[2024-05-10] MEDS: FARXIGA 10 MG PO (07:43)
[2024-05-10] MEDS: MAGNESIUM OXIDE 500 MG PO ×2 (07:43→20:24)
[2024-05-10] MEDS: PROGRAF 1.5 MG PO ×2 (07:43→20:24)
[2024-05-10] MEDS: PLAVIX 75 MG PO (07:43)
[2024-05-10] MEDS: GLUCOPHAGE 500 MG PO ×2 (07:43→18:02)
[2024-05-10] MEDS: NOVOLOG FLEXPEN-MODERATE RESISTANCE SC ×3 (07:43→16:20)
[2024-05-10] MEDS: ELIQUIS 5 MG PO ×2 (07:43→20:24)
[2024-05-10] MEDS: LASIX 40 MG IV ×2 (07:43→16:24)
[2024-05-10] MEDS: TOPROL XL 75 MG PO (07:44)
[2024-05-10 07:46] LABS: Glucose - Point of Care 119 mg/dl (70-99)
[2024-05-10] MEDS: ADVAIR HFA 45/21 MCG INHALER 2 PUFF INH ×2 (07:48→20:00)
[2024-05-10] MEDS: SPIRIVA RESPIMAT 2.5 MCG 2 PUFF INH (07:49)
--- NOTE | 2024-05-10 08:18 | W.PN.ID1 ---
Date of Service
Date of Service: May 10, 2024
Today's Communication
Continue antibiotics.
Assessment / Plan
# Pseudomonas bacteremia
- likely 2* to infected stent grafts and/or biliary duct obstruction
- BC's negative from 04/30 onward
# AAA stent graft infection.
- hx AAA s/p aortobi-iliac stent graft (at [facility])
- CTA: acute aortitis
# Biliary obstruction with intraluminal mass in CBD
# Leukocytosis - trending down
# Hx liver transplant; on tacrolimus
#New mental status change
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
- QTc has been acceptable
- 04/30 blood cultures - NGTD
- 05/02 blood cultures - NGTD
- 05/01 tissue cultures from the OR - Pseudomonas
- Appreciate Vascular
- Appreciate GI - ERCP currently on hold and may be done outpatient
- Patient's encephalopathy possibly due to cefepime. Have switched to Zosyn 4.5g Q6
- will plan a course of IV therapy followed by suppressive antibiotics
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
Paroxysmal atrial fibrillation
CAD
Hypertension
Neuropathy
COPD
AAA s/p aortobi-iliac stent graft
Cholecystectomy
Back surgery
History of multiple bile duct stents
Chief Complaint
-: Leukocytosis and Bacteremia
Subjective / Review of Systems
Review of Systems: No Fever and No Chills
Vital Signs / Physical Exam
Vital Signs
Vital Signs
Temp Pulse Resp BP Pulse Ox
98.7 F 72 20 119/51 91
05/10/24 07:20 05/10/24 07:52 05/10/24 07:52 05/10/24 07:44 05/10/24 07:52
Physical Exam
Constitutional: No Acute Distress, Comfortable and Chronically Ill
Eyes: No Conjunctival Hemorrhage and Sclera Anicteric
Cardiovascular: Regular Rate and S1/S2; Negative S3/S4
Pulmonary: Non Labored
Gastrointestinal: Soft, Non Distended and Normal Bowel Sounds
Extremities: Edema
Skin: Warm and Dry; Negative Rash or Jaundice
Neurological: Other (Resting comfortably)
Psychological: Confused (Although more mentally aware today)
Objective Data
Lab Data
Lab Results
05/09/24 04:24
05/09/24 04:24
PT 17.8 Sec (11.4-14.6) H 05/06/24 03:46
INR 1.44 05/06/24 03:46
APTT 37.1 Sec (23.4-35.0) H 05/07/24 05:17
Estimated Creat Clear 82 ml/min 05/09/24 04:24
Lactic Acid 1.4 mmol/L (0.7-2.0) 05/02/24 08:21
Total Bilirubin 1.7 mg/dl (0.2-1.3) H 05/07/24 05:17
AST 39 U/L (17-59) 05/07/24 05:17
ALT 27 U/L (0-50) 05/07/24 05:17
Alkaline Phosphatase 211 U/L (38-126) H 05/07/24 05:17
Most recent labs reviewed.
Micro Results:
05/02/24 12:54 Blood Culture - Final
Blood/Venous No Growth - Final Report
05/02/24 12:37 Blood Culture - Final
Blood/Venous No Growth - Final Report
05/01/24 20:42 Wound Culture - Final
Abdomen Pseudomonas aeruginosa
Gram Stain - Final
05/01/24 20:42 Anaerobic Culture - Final
Abdomen NO ANAEROBES ISOLATED
04/30/24 08:50 Blood Culture - Final
Blood/Venous No Growth - Final Report
04/29/24 06:51 Blood Culture - Final
Blood/Venous Pseudomonas aeruginosa
Gram Stain - Final
04/28/24 13:34 Blood Culture - Final
Blood/Venous Pseudomonas aeruginosa
Gram Stain - Final
04/30/24 09:18 Blood Culture - Final
Blood/Venous No Growth - Final Report
05/01/24 20:42 Tissue Culture - Final
Tissue Pseudomonas aeruginosa
Gram Stain - Final
05/01/24 20:42 Tissue Culture - Final
Heart Pseudomonas aeruginosa
Gram Stain - Final
04/25/24 15:59 Blood Culture - Final
Blood/Venous Pseudomonas aeruginosa
Gram Stain - Final
04/25/24 15:59 Blood Culture - Final
Blood/Venous Pseudomonas aeruginosa
Gram Stain - Final
04/25/24 17:36 Urine Culture - Final
Urine NO GROWTH
04/26/24 00:04 MRSA Screen - Final
Nose No Methicillin Resistant Staphylococcus aureus isolated.
04/25/24 08:58 Influenza Types A & B (NITIN) - Final
Nasal Swab Negative for Influenza A & B, NAAT
Negative results must be combined with clinical observations
and patient history.
Nucleic Acid Amplification test (NAAT)performed on the
[employer] platform.
Imaging:
04/28/24 CT a/p: Probable enteritis/ileus. Cannot rule out developing small bowel obstruction with questionable transition points as described.
04/28/24 Chest/abd xray: Nonobstructive bowel gas pattern. Mild colonic stool burden.
04/30/24 CT angiogram a/p: Aortobiiliac endograft in place with an interval increase in size of the minto aneurysm sac around the endograft, interval increase in circumferential wall thickening of the minto aneurysm, mild retroperitoneal
inflammation, and increased small retroperitoneal lymph nodes. The constellation of findings is suggestive of ACUTE AORTITIS which could be secondary to infection or inflammatory disease.
2. Moderate extrahepatic biliary dilatation with suggestion of an obstructing 1.3 cm intraluminal mass in the distal common bile duct. Diagnostic possibilities are (1) choledocholithiasis or (2) less likely bile duct cancer. Mild wall thickening
and hyperenhancement of the common hepatic and common bile ducts suggesting CHOLANGITIS.
3. Right upper quadrant liver transplant in place with mild pneumobilia in the liver.
--- NOTE | 2024-05-10 08:35 | PTCARENOTE ---
pt wakes to name. can not states name place or time. responds sometimes with one word answers to questions then looks away. able to swallow pills with water. does follow commands. pt scratching at right cw marija. placed dressing over to
protect. left flank stps intact. bilat groin stps intact. bilat legs +3 pitting edema.
[2024-05-10 09:27] LABS: Hematocrit 27.6 % (39.0-52.0); Hemoglobin 9.3 g/dL (13.0-18.0); Mean Corp Hgb Conc. 33.7 g/dL (33.0-37.0); Mean Corpuscular Hgb 32.1 pg (27.0-31.0); Mean Corpuscular Volume 95.2 fL (80.0-94.0); Mean Platelet Volume 10.5 fL (7.4-10.4); Platelet Count 245 10^3/uL (130-400); Red Cell Dist. Width 18.1 % (11.5-14.5); White Blood Cell Count 17.4 10^3/uL (4.8-10.8)
[2024-05-10 09:31] LABS: Blood Urea Nitrogen 24 mg/dl (9-20); Calcium 8.1 mg/dl (8.4-10.2); Carbon Dioxide 24 mmol/L (22-30); Chloride 109 mmol/L (98-107); Estimated Creatinine Clearance 74 ml/min; Glucose 131 mg/dl (70-99); Magnesium 1.7 mg/dl (1.6-2.3); Potassium 3.9 mmol/L (3.5-5.1); Sodium 137 mmol/L (135-145); eGFR > 60.00
[2024-05-10 10:18] LABS: % Basophils 0.5 % (0-2); % Eosinophils 1.5 % (0-6); % Immature Granulocytes 7.8 % (0-0.5); % Lymphocytes 7.9 % (20.5-51.1); % Monocytes 8.9 % (1.7-9.3); % Neutrophils 73.4 % (42.2-75.2); Absolute Basophils 0.1 10^3/uL (0-0.2); Absolute Eosinophils 0.3 10^3/uL (0-0.7); Absolute Immature Granulocytes 1.4 10^3/uL (0-0.05); Absolute Lymphocytes 1.4 10^3/uL (1.2-3.4); Absolute Monocytes 1.5 10^3/uL (0.1-0.6); Absolute Neutrophils 12.8 10^3/uL (1.4-6.5); Nucleated Red Blood Cells % 0 % (-)
[2024-05-10 11:51] LABS: Glucose - Point of Care 134 mg/dl (70-99)
--- NOTE | 2024-05-10 13:49 | W.PN.HOSP.TC ---
Today's Communication/Plan
-
Downgraded to telemetry
Continue IV antibiotics
Continue IV Lasix
Monitor mental status
Trend CBC
Assessment / Plan
Assessment / Plan
The patient was presented to ER after having 1 episode of large amount diarrhea and his CT abdomen pelvis showed probable enteritis/ileitis. The patient was admitted with a concern of probable sepsis to enteritis and he was started on Zosyn. His
diarrhea diarrhea improved but he has been having ongoing abdominal discomfort as well as constipation. Due to his persistent bacteremia with Pseudomonas aeruginosa, the patient was consulted to ID. It was recommended to have a CT angio pelvis
abdomen for possible aorto bi-iliac stent infection. CT angio abdomen pelvis showed acute aortitis and intraluminal mass in the distal common bile duct. Vascular surgery and gastroenterology team was consulted to assist the patient. The patient
underwent an urgent surgery on 05/01/24 and her infected stent was removed and has a right axillary bifemoral artery bypass on 05/01/2024. The patient was transferred to ICU. The patient was started on vasopressor and extubated on 05/02/24.
Following following, patient started to be gradually hemodynamically stable and vasopressors discontinued.
Problem list
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
CBD mass
Sepsis secondary to AAA stent graft infection vs hepatobiliary infection vs Enteritis/Ileitis
Leukocytosis
CHARISSE
Hypertension
Chronic pain to cervical/lumbar radiculopathy
Paroxysmal atrial fibrillation
History of CAD
History of PVCs
Hx of Alcoholic cirrhosis
Hepatitis C s/p liver transplant in 2006 and [facility] with with ongoing
History of multiple bile duct stents
Abdominal aortic aneurysm s/p repair at [facility]
Hyperlipidemia
Essential hypertension
COPD
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
-Hx of aorto bi iliac stent 19 years ago due AAA at [facility]
-CT angio abdomen: suggestive of acute aortitis
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
-Transfer out of ICU
-Now off vasopressors since evening of 05/02, extubated 05/02
-Pain management
-Resume apixaban and clopidogrel.
-Currently on IV Zosyn, will need 6 weeks of antibiotics with likely oral suppressive regimen after
#Acute metabolic encephalopathy
-Likely combination of cefepime induced encephalopathy as well as in hospital delirium
-Has been transition from cefepime to IV Zosyn
-Optimize natural lighting, delirium precautions
-Avoid unnecessary sedating agents
-Trend MSE
#Generalized Edema
-Given multiple RBC and IV fluids
-Improving
-Continue Furosemide
#Hypokalemia
-Replete as needed
#Sepsis suspected secondary to AAA stent graft infection
#Concern for biliary source with CBD masslike lesion seen on imaging
-Continue IV Zosyn, which was switched from cefepime due to possible cefepime associated encephalopathy
-Cultures from 04/28 through 05/01 positive for Pseudomonas, cultures from 05/02 no growth to date
-Wound culture positive for Pseudomonas
-Hx of bile duct stent placement-all bile duct stents removed in the past by Dr Short at [facility], per patient`s report, outpatient GI follow-up as needed, no current plans for ERCP this admission
#CBD mass
-History of liver transplantation in 2006 at [facility]-on tacrolimus
-History of multiple bile duct stents-all removed per patient report by Dr Short at [facility]
-GI on board, no plans for ERCP this admission, recommend outpatient GI follow-up
-Likely will need to wait until surgical marija removed for MRCP, possibly as OP
#Anemia requiring transfusions
-Suspect secondary to expected surgical blood loss
-Transfused a total of 9 units PRBCs, 2 units FFP, 1 unit of platelets this admission
-Continue to monitor hemoglobin and transfuse further as needed
-Aspirin and Plavix on hold- will ask vascular surgery team to restart if GI is not planning ERCP
#Metabolic acidosis
-Resolved
# Constipation
-Abdominal d-pdc-xbzohptuvye series 04/28: Mild stool burden without obstruction findings
-Rectal rectal suppository was given on 04/29
-Continue bowel regimen
#DM
- Hba1c 7.5
- Continue SSI
- c/w metformin
#Hyponatremia
- hypervolemic
- Continue Lasix
- Follow BMP
#Acute kidney injury
-Resolved
-Cr 1.3 at likely baseline
-Hold lisinopril
#Essential hypertension
-Metoprolol 100 mg started and planning to up 150 mg with BP/HR monitor
- lisinopril on hold
#Paroxysmal atrial fibrillation
-Remains on Eliquis and metoprolol
-Heart rate WNL
#Right-sided cervical radiculopathy and lumbar radiculopathy
-Patient has some pain in his lower back suggesting lumbar radiculopathy
-Strength is preserved
#History of CAD
-Plavix on hold for now with the last dose on 05/01 am
-Statin can e considered to restart
#History of PVCs
#Alcoholic cirrhosis
#Chronic neuropathy
-Continue pregabalin
#COPD without exacerbation
DNR
Diet carbohydrate controlled, Ensure with meals
DVT prophylaxis- heparin
Dispo eventual to SNF v. AIR
Anticipated Discharge: > 48 hours
Subjective/Interval History
-
Date of Service: May 10, 2024
Seen and examined at the bedside. No acute events reported overnight. AFVSS this morning on room air
White cell count remains elevated but stable. Hemoglobin uptrending. Renal function stable.
Still seems slightly encephalopathic. Denies any acute complaints this morning
Objective Data
-
Labs:
Laboratory Results
05/10/24
09:01
WBC 17.4 H
Hgb 9.3 L
Hct 27.6 L
Plt Count 245 D
Sodium 137
Potassium 3.9
Chloride 109 H
Carbon Dioxide 24
BUN 24 H
Creatinine 1.1
Glucose 131 H
Calcium 8.1 L
Vital Signs:
Vital Signs
Temp Pulse Resp BP Pulse Ox
99.4 F 76 18 110/59 95
05/10/24 10:42 05/10/24 10:42 05/10/24 10:42 05/10/24 10:42 05/10/24 10:50
I&O
05/09/24 05/10/24 05/11/24
06:59 06:59 06:59
Intake Total 380 / 380 100 / 100
Output Total 2029
Balance -1650 / -1650 100 / 100
Review of Systems
-
History Source: Patient
All other systems: Reviewed and negative
Physical Exam
-
General: Well Developed, No Apparent Distress, Comfortable and Obese
HEENT: Normocephalic, Atraumatic and Moist Mucous Membranes
Respiratory: Clear to Auscultation and Non Labored Respirations
Cardiac: Regular Rhythm and S1/S2; Negative Murmur, Rub or Gallop
GI: Soft, Nontender, Nondistended, Normal Bowel Sounds and Other (Well-approximated left flank surgical scar without erythema or purulence)
Musculoskeletal: No Clubbing, No Cyanosis and Other (3+ pitting edema bilateral lower extremity)
Skin: Warm, Dry and Normal Turgor; Negative Rash
Neuro: Awake, Alert, Oriented and Nonfocal/Grossly Intact; Negative Tremors
Psych: Calm
Data Reviewed
-
Labs: Labs Reviewed by me and Discussed with Patient
[2024-05-10 16:20] LABS: Glucose - Point of Care 109 mg/dl (70-99)
[2024-05-10 21:18] LABS: Glucose - Point of Care 139 mg/dl (70-99)
[2024-05-11] VITALS (7 sets, daily range): BP systolic 107–151; BP diastolic 58–66; BMI 31.4
[2024-05-11] MEDS: ZOSYN 100 IV ×5 (00:24→23:52)
[2024-05-11] MEDS: DILAUDID 0.5 MG IV ×2 (06:03→17:55)
[2024-05-11 06:07] LABS: Hematocrit 28.8 % (39.0-52.0); Hemoglobin 9.3 g/dL (13.0-18.0); Mean Corp Hgb Conc. 32.3 g/dL (33.0-37.0); Mean Corpuscular Hgb 30.9 pg (27.0-31.0); Mean Corpuscular Volume 95.7 fL (80.0-94.0); Mean Platelet Volume 10.6 fL (7.4-10.4); Platelet Count 306 10^3/uL (130-400); Red Blood Cell Count 3.01 10^6/uL (4.70-6.10); Red Cell Dist. Width 18.3 % (11.5-14.5)
[2024-05-11 06:42] LABS: Blood Urea Nitrogen 25 mg/dl (9-20); Calcium 8.3 mg/dl (8.4-10.2); Carbon Dioxide 24 mmol/L (22-30); Chloride 104 mmol/L (98-107); Estimated Creatinine Clearance 58 ml/min; Glucose 123 mg/dl (70-99); Potassium 3.7 mmol/L (3.5-5.1); Sodium 137 mmol/L (135-145); Triglycerides 131 mg/dl (10-149); eGFR 52.74
[2024-05-11 07:25] LABS: Atypical Lymphocytes 2 %; Band Neutrophils 4 % (0-3); Lymphocytes 7 % (20-51); Metamyelocytes 1 % (-); Monocytes 1 % (2-9); Segmented Neutrophils 85 % (42-75)
[2024-05-11 07:26] LABS: Anisocytosis 2+; Hypochromasia 2+; Microcytosis 1+; Normal RBC Morphology No; Platelets Checked Yes
[2024-05-11 07:27] LABS: Rouleaux Slight; Total Cells Counted 100
[2024-05-11] MEDS: ADVAIR HFA 45/21 MCG INHALER 2 PUFF INH ×2 (07:31→19:51)
[2024-05-11] MEDS: SPIRIVA RESPIMAT 2.5 MCG 2 PUFF INH (07:32)
[2024-05-11] MEDS: PROGRAF 1.5 MG PO ×2 (09:12→19:52)
[2024-05-11] MEDS: PROTONIX 40 MG PO ×2 (09:13→19:52)
[2024-05-11] MEDS: PLAVIX 75 MG PO (09:13)
[2024-05-11] MEDS: TOPROL XL 75 MG PO (09:13)
[2024-05-11] MEDS: LASIX IV (09:13)
[2024-05-11] MEDS: GLUCOPHAGE 500 MG PO ×2 (09:13→16:07)
[2024-05-11] MEDS: MAGNESIUM OXIDE 500 MG PO ×2 (09:14→19:52)
[2024-05-11] MEDS: ELIQUIS 5 MG PO ×2 (09:14→19:52)
[2024-05-11] MEDS: FARXIGA 10 MG PO (09:14)
[2024-05-11 09:15] LABS: Glucose - Point of Care 141 mg/dl (70-99)
[2024-05-11] MEDS: NOVOLOG FLEXPEN-MODERATE RESISTANCE SC ×3 (09:18→17:16)
--- NOTE | 2024-05-11 10:44 | W.PN.ID1 ---
Date of Service
Date of Service: May 11, 2024
Today's Communication
Continue zosyn
Assessment / Plan
# Pseudomonas bacteremia
- likely 2* to infected stent grafts and/or biliary duct obstruction
- BC's negative from 04/30 onward
# AAA stent graft infection.
- hx AAA s/p aortobi-iliac stent graft (at [facility])
- CTA: acute aortitis
# Biliary obstruction with intraluminal mass in CBD
# Leukocytosis - trending down
# Hx liver transplant; on tacrolimus
#New mental status change
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
- 04/30 blood cultures - NGTD
- 05/02 blood cultures - NGTD
- 05/01 tissue cultures from the OR - Pseudomonas aeruginosa
- Patient's encephalopathy possibly due to cefepime. Have switched back to Zosyn 4.5g q6
- will plan a course of IV therapy followed by suppressive antibiotics
# Conditions [employer]
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
Paroxysmal atrial fibrillation
CAD
Hypertension
Neuropathy
COPD
AAA s/p aortobi-iliac stent graft
Cholecystectomy
Back surgery
History of multiple bile duct stents
Chief Complaint
-: Leukocytosis and Bacteremia
Subjective / Review of Systems
Review of Systems: No Fever
Vital Signs / Physical Exam
Vital Signs
Vital Signs
Temp Pulse Resp BP Pulse Ox
97.1 F 79 20 136/58 98
05/11/24 07:30 05/11/24 08:30 05/11/24 08:30 05/11/24 09:13 05/11/24 08:30
Physical Exam
Constitutional: No Acute Distress, Comfortable and Chronically Ill
Cardiovascular: Regular Rate and S1/S2
Pulmonary: Non Labored
Gastrointestinal: Soft, Non Distended and Normal Bowel Sounds
Extremities: Edema
Skin: Warm and Dry; Negative Rash or Jaundice
Objective Data
Lab Data
Lab Results
05/11/24 05:42
05/11/24 05:42
PT 17.8 Sec (11.4-14.6) H 05/06/24 03:46
INR 1.44 05/06/24 03:46
APTT 37.1 Sec (23.4-35.0) H 05/07/24 05:17
Estimated Creat Clear 58 ml/min 05/11/24 05:42
Lactic Acid 1.4 mmol/L (0.7-2.0) 05/02/24 08:21
Total Bilirubin 1.7 mg/dl (0.2-1.3) H 05/07/24 05:17
AST 39 U/L (17-59) 05/07/24 05:17
ALT 27 U/L (0-50) 05/07/24 05:17
Alkaline Phosphatase 211 U/L (38-126) H 05/07/24 05:17
Most recent labs reviewed.
Micro Results:
05/02/24 12:54 Blood Culture - Final
Blood/Venous No Growth - Final Report
05/02/24 12:37 Blood Culture - Final
Blood/Venous No Growth - Final Report
05/01/24 20:42 Wound Culture - Final
Abdomen Pseudomonas aeruginosa
Gram Stain - Final
05/01/24 20:42 Anaerobic Culture - Final
Abdomen NO ANAEROBES ISOLATED
04/30/24 08:50 Blood Culture - Final
Blood/Venous No Growth - Final Report
04/29/24 06:51 Blood Culture - Final
Blood/Venous Pseudomonas aeruginosa
Gram Stain - Final
04/28/24 13:34 Blood Culture - Final
Blood/Venous Pseudomonas aeruginosa
Gram Stain - Final
04/30/24 09:18 Blood Culture - Final
Blood/Venous No Growth - Final Report
05/01/24 20:42 Tissue Culture - Final
Tissue Pseudomonas aeruginosa
Gram Stain - Final
05/01/24 20:42 Tissue Culture - Final
Heart Pseudomonas aeruginosa
Gram Stain - Final
04/25/24 15:59 Blood Culture - Final
Blood/Venous Pseudomonas aeruginosa
Gram Stain - Final
04/25/24 15:59 Blood Culture - Final
Blood/Venous Pseudomonas aeruginosa
Gram Stain - Final
04/25/24 17:36 Urine Culture - Final
Urine NO GROWTH
04/26/24 00:04 MRSA Screen - Final
Nose No Methicillin Resistant Staphylococcus aureus isolated.
04/25/24 08:58 Influenza Types A & B (NITIN) - Final
Nasal Swab Negative for Influenza A & B, NAAT
Negative results must be combined with clinical observations
and patient history.
Nucleic Acid Amplification test (NAAT)performed on the
[employer] platform.
Imaging:
04/28/24 CT a/p: Probable enteritis/ileus. Cannot rule out developing small bowel obstruction with questionable transition points as described.
04/28/24 Chest/abd xray: Nonobstructive bowel gas pattern. Mild colonic stool burden.
04/30/24 CT angiogram a/p: Aortobiiliac endograft in place with an interval increase in size of the yurok aneurysm sac around the endograft, interval increase in circumferential wall thickening of the yurok aneurysm, mild retroperitoneal
inflammation, and increased small retroperitoneal lymph nodes. The constellation of findings is suggestive of ACUTE AORTITIS which could be secondary to infection or inflammatory disease. 2. Moderate extrahepatic biliary dilatation with suggestion
of an obstructing 1.3 cm intraluminal mass in the distal common bile duct. Diagnostic possibilities are (1) choledocholithiasis or (2) less likely bile duct cancer. Mild wall thickening and hyperenhancement of the common hepatic and common bile
ducts suggesting CHOLANGITIS. 3. Right upper quadrant liver transplant in place with mild pneumobilia in the liver.
[2024-05-11 11:17] LABS: Glucose - Point of Care 157 mg/dl (70-99)
[2024-05-11 13:11] LABS: ALT (SGPT) 24 U/L (0-50); AST (SGOT) 34 U/L (17-59); Albumin 2.4 g/dl (3.5-5.0); Alkaline Phosphatase 268 U/L (38-126); Direct Bilirubin 0.6 mg/dl (0.0-0.4); Total Bilirubin 1.7 mg/dl (0.2-1.3); Total Protein 4.9 g/dl (6.3-8.2)
--- NOTE | 2024-05-11 13:12 | W.PN.HOSP.TC ---
Today's Communication/Plan
-
Continue IV Lasix and give dose of albumin this afternoon
IR consult for diagnostic and therapeutic thoracentesis
Check BNP, consider cardiology consult
Wean oxygen
Out of bed as possible
Assessment / Plan
Assessment / Plan
The patient was presented to ER after having 1 episode of large amount diarrhea and his CT abdomen pelvis showed probable enteritis/ileitis. The patient was admitted with a concern of probable sepsis to enteritis and he was started on Zosyn. His
diarrhea diarrhea improved but he has been having ongoing abdominal discomfort as well as constipation. Due to his persistent bacteremia with Pseudomonas aeruginosa, the patient was consulted to ID. It was recommended to have a CT angio pelvis
abdomen for possible aorto bi-iliac stent infection. CT angio abdomen pelvis showed acute aortitis and intraluminal mass in the distal common bile duct. Vascular surgery and gastroenterology team was consulted to assist the patient. The patient
underwent an urgent surgery on 05/01/24 and her infected stent was removed and has a right axillary bifemoral artery bypass on 05/01/2024. The patient was transferred to ICU. The patient was started on vasopressor and extubated on 05/02/24.
Following following, patient started to be gradually hemodynamically stable and vasopressors discontinued.
#Acute metabolic encephalopathy
-Likely combination of cefepime induced encephalopathy and hospital delirium
-Has been transition from cefepime to IV Zosyn
-Optimize natural lighting, delirium precautions
-Avoid unnecessary sedating agents
-Monitor mental status
#Acute hypoxemic respiratory failure
#Left-sided pleural effusion
#Pulmonary edema on CXR
#Generalized Edema
-X-ray today showing left pleural effusion near site of previous chest tube; on 4 L as of this morning with SpO2 mid 90s
-Question if this is multifactorial, with him possibly developing CHF; echo on 04/30 with preserved EF
-Ordered BNP to assess for intracardiac stress/volume overload, consulted IR for Dx/Tx thoracentesis
-Continue IV Lasix for now, ordered 12.5 g albumin pretreatment for prior to afternoon dose 05/11
-Trend BMP closely, if renal function tolerating would continue IV Lasix on 05/12
-Consider repeating echo, cardiology consult if not improved
-Follow-up pleural fluid studies from thoracentesis
#Sepsis suspected secondary to AAA stent graft infection
#Concern for biliary source with CBD masslike lesion seen on imaging
-Continue IV Zosyn, which was switched from cefepime due to possible cefepime associated encephalopathy
-Cultures from 04/28 through 05/01 positive for Pseudomonas, cultures from 05/02 no growth to date
-Wound culture positive for Pseudomonas from OR on 05/01/2024
-Continue IV Zosyn, plan for 6 weeks of antibiotics with oral suppression regimen after
-Would likely benefit from MRCP +/- ERCP once surgical marija removed
#Acute kidney injury
-Creatinine improved down to 1.0 on IV Lasix, up to 1.4 as of 05/11
-Remains hypervolemic, question if he is intravascularly depleted at this point
-No signs of obstructive uropathy; Vaughn catheter was successfully removed
-Will provide 1 more dose of IV Lasix today with albumin
-Lisinopril remains held, follow-up BMP on 05/12
-Consider continuing Lasix per renal response
-consider cardiology consult and RHC
#CBD mass
-History of liver transplantation in 2006 at [facility]-on tacrolimus
-History of multiple bile duct stents-all removed per patient report by Dr Short at [facility]
-GI on board, no plans for ERCP this admission, recommend outpatient GI follow-up
-Likely will need to wait until surgical marija removed for MRCP, possibly as OP
#Anemia requiring transfusions
-Suspect secondary to expected surgical blood loss
-Transfused a total of 9 units PRBCs, 2 units FFP, 1 unit of platelets this admission
-Continue to monitor hemoglobin and transfuse further as needed
-CBC has been stable with Plavix and DOAC resumed
#Constipation
-Abdominal l-dhs-gcnzblfxyjl series 04/28: Mild stool burden without obstruction findings
-Rectal rectal suppository was given on 04/29
-Continue bowel regimen
#DM
-Hba1c 7.5
-Continue SSI
-c/w metformin
#Hypervolemic Hyponatremia
-Continue Lasix
-Follow BMP
#Essential hypertension
-Metoprolol 100 mg started and planning to up 150 mg with BP/HR monitor
-lisinopril on hold
#Paroxysmal atrial fibrillation
-Remains on Eliquis and metoprolol
-Heart rate WNL
#Right-sided cervical radiculopathy and lumbar radiculopathy
-Patient has some pain in his lower back suggesting lumbar radiculopathy
-Strength is preserved
#History of CAD
-Plavix on hold for now with the last dose on 05/01 am
-Statin can e considered to restart
#History of PVCs
#Alcoholic cirrhosis
#Chronic neuropathy
-Continue pregabalin
#COPD without exacerbation
DNR
Diet carbohydrate controlled, Ensure with meals
DVT prophylaxis- heparin
Dispo eventual to SNF v. AIR
Anticipated Discharge: > 48 hours
Subjective/Interval History
-
Date of Service: May 11, 2024
Seen and examined at the bedside. No acute events reported overnight. AFVSS on 1 to 2 L oxygen
Complains of some shortness of breath this morning as well as abdomen discomfort. Creatinine increased to 1.4. Chest x-ray showing left pleural effusion and worsening pulmonary edema, abdomen x-ray with constipation.
Denies any chest pain, fevers or chills, lightheadedness or other acute complaints
Objective Data
-
Labs:
Laboratory Results
05/11/24
05:42
WBC 18.0 H
Hgb 9.3 L
Hct 28.8 L
Plt Count 306 D
Sodium 137
Potassium 3.7
Chloride 104
Carbon Dioxide 24
BUN 25 H
Creatinine 1.4 H
Glucose 123 H
Calcium 8.3 L
Total Bilirubin 1.7 H
AST 34
ALT 24
Alkaline Phosphatase 268 H
Vital Signs:
Vital Signs
Temp Pulse Resp BP Pulse Ox
97.7 F 52 18 121/64 95
05/11/24 11:00 05/11/24 11:00 05/11/24 11:00 05/11/24 11:00 05/11/24 11:00
I&O
05/10/24 05/11/24 05/12/24
06:59 06:59 06:59
Intake Total 100 / 100 620 / 620
Output Total 425 / 425
Balance 100 / 100 195 / 195
Review of Systems
-
History Source: Patient
All other systems: Reviewed and negative
Physical Exam
-
General: Well Developed, No Apparent Distress, Appears Chronically Ill and Obese
HEENT: Normocephalic, Atraumatic, Moist Mucous Membranes and Anicteric
Respiratory: Non Labored Respirations and Decreased Breath Sounds (Left lung base); Negative Wheezes, Rales or Rhonchi
Cardiac: Regular Rhythm and S1/S2; Negative Murmur, Rub or Gallop
GI: Soft, Nontender, Nondistended and Normal Bowel Sounds
Musculoskeletal: No Clubbing, No Cyanosis and Other (3+ pitting edema to lower extremity)
Skin: Warm, Dry and Normal Turgor; Negative Rash or Jaundice
Neuro: AO x 3 and Nonfocal/Grossly Intact; Negative Tremors
Psych: Calm
Data Reviewed
-
Diagnostic Radiology: Image personally visualized and interpreted, Report Reviewed by me and Discussed with Physician (Interventional radiology)
Labs: Labs Reviewed by me and Discussed with Patient
[2024-05-11 14:52] LABS: NT-proBNP 1860 pg/ml
[2024-05-11] MEDS: ALBUMIN 5% 250 IV (15:04)
[2024-05-11] MEDS: LASIX 40 MG IV (16:07)
[2024-05-11 16:37] LABS: Glucose - Point of Care 156 mg/dl (70-99)
[2024-05-11 21:54] LABS: Glucose - Point of Care 142 mg/dl (70-99)
[2024-05-12] VITALS (12 sets, daily range): BP systolic 80–153; BP diastolic 57–73; PULSE 63–71; O2SAT 93
[2024-05-12] MEDS: ZOSYN 100 IV ×4 (06:04→22:59)
[2024-05-12 06:41] LABS: Hematocrit 26.5 % (39.0-52.0); Hemoglobin 8.7 g/dL (13.0-18.0); Mean Corp Hgb Conc. 32.8 g/dL (33.0-37.0); Mean Corpuscular Volume 97.4 fL (80.0-94.0); Mean Platelet Volume 10.2 fL (7.4-10.4); Platelet Count 254 10^3/uL (130-400); Red Blood Cell Count 2.72 10^6/uL (4.70-6.10); Red Cell Dist. Width 18.1 % (11.5-14.5)
[2024-05-12 07:01] LABS: ALT (SGPT) 19 U/L (0-50); AST (SGOT) 28 U/L (17-59); Albumin 2.1 g/dl (3.5-5.0); Alkaline Phosphatase 212 U/L (38-126); Blood Urea Nitrogen 22 mg/dl (9-20); Carbon Dioxide 26 mmol/L (22-30); Chloride 105 mmol/L (98-107); Estimated Creatinine Clearance 58 ml/min; Glucose 133 mg/dl (70-99); Magnesium 1.6 mg/dl (1.6-2.3); Potassium 3.3 mmol/L (3.5-5.1); Sodium 137 mmol/L (135-145); Total Bilirubin 1.5 mg/dl (0.2-1.3); Total Protein 4.4 g/dl (6.3-8.2); eGFR 52.74
[2024-05-12 07:22] LABS: % Basophils 0.4 % (0-2); % Eosinophils 1.5 % (0-6); % Immature Granulocytes 5.5 % (0-0.5); % Lymphocytes 8.9 % (20.5-51.1); % Monocytes 9.9 % (1.7-9.3); % Neutrophils 73.8 % (42.2-75.2); Absolute Basophils 0.1 10^3/uL (0-0.2); Absolute Eosinophils 0.2 10^3/uL (0-0.7); Absolute Immature Granulocytes 0.8 10^3/uL (0-0.05); Absolute Lymphocytes 1.2 10^3/uL (1.2-3.4); Absolute Monocytes 1.4 10^3/uL (0.1-0.6); Absolute Neutrophils 10.3 10^3/uL (1.4-6.5); Nucleated Red Blood Cells % 0 % (-)
[2024-05-12 07:31] LABS: Glucose - Point of Care 149 mg/dl (70-99)
[2024-05-12] MEDS: NOVOLOG FLEXPEN-MODERATE RESISTANCE SC (07:40)
[2024-05-12] MEDS: SPIRIVA RESPIMAT 2.5 MCG INH (08:35)
[2024-05-12] MEDS: ADVAIR HFA 45/21 MCG INHALER INH (08:35)
--- NOTE | 2024-05-12 08:43 | PN.DE.MGMTRT ---
Insulin Management
- -
05/12/2024: Diabetes Management follow up
Patient admitted 04/25 with fever/chills decreased oral intake and diarrhea. PMH including: Paroxysmal A-Fib, CAD, PVCs, alcoholic cirrhosis, hepatitis C s/p liver transplant in 2006 (on immunosuppression), multiple bile duct stents, AAA s/p repair
in 2004, HTN, HLD, COPD chronic tobacco use and T2DM. Prior to admission was taking Metformin 500 mg daily. A1C 7.5%, Cr 1.1, eGFR >60
CT A/P--> enteritis/ileus. Admission blood cultures + Pseudomonas. CT angio showed significant concern for infected aortic endograft and questionable distal common bile duct stone vs mass vs sludge. Pt underwent Right axillary bifemoral artery
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
Pt sleeping comfortably, no family at bedside, Pt is unable to discuss diabetes care plan.
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
on 05/05, pt transitioned from glycemic protocol to Lantus and NovoLog. 05/08 AM Lantus decreased to 12 units with moderate corrective AC.
05/11 Glucose range 141to 157. Lantus was stopped on 05/09. No hypoglycemia over the weekend. Fasting glucose today 133 V, 149 POC.
Tolerating diet. Noted for CHARISSE, Cr 1.4, eGFR 52.74. Will hold Metformin 500 mg BID. Cont Farxiga 10mg daily.
Discussed with nurse. Will cont to follow
Diabetes History
- -
Type of Diabetes: 2
Pre-Admission Diabetes Regimen
05/11/24 05/12/24
05:42 06:22
Creatinine 1.4 H 1.4 H
Lab Results
Hemoglobin A1c 7.5 % (4.0-5.6) H 04/29/24 06:51
Insulin Pump Settings
IP Diabetes Regimen
05/11/24 05/11/24 05/11/24
05:42 09:14 11:16
Glucose 123 H
POC Glucose 141 H 157 H
05/11/24 05/11/24 05/12/24
16:36 21:52 06:22
Glucose 133 H
POC Glucose 156 H 142 H
05/12/24
07:28
Glucose
POC Glucose 149 H
Meal type: Breakfast
Amount consumed: 10%
Patient Education
[2024-05-12 09:04] LABS: Body Fluid pH 7.42
[2024-05-12 09:16] LABS: Body Fluid Mononuclear 21.6 %; Body Fluid Polymorphonuclear 78.4 %; Body Fluid WBC 5680 /CUMM
[2024-05-12 09:25] LABS: Body Fluid Second Tech ASW
[2024-05-12 09:31] LABS: Body Fluid Albumin 1.2 g/dl; Body Fluid Glucose 119 mg/dl; Body Fluid Protein 2.4 g/dl
[2024-05-12] MEDS: GLUCOPHAGE 500 MG PO (09:32)
[2024-05-12] MEDS: MAGNESIUM OXIDE 500 MG PO ×2 (09:32→20:39)
[2024-05-12] MEDS: ELIQUIS 5 MG PO ×2 (09:32→20:39)
[2024-05-12] MEDS: PROTONIX 40 MG PO ×2 (09:32→20:38)
[2024-05-12] MEDS: PLAVIX 75 MG PO (09:33)
[2024-05-12] MEDS: TOPROL XL 75 MG PO (09:33)
[2024-05-12] MEDS: FARXIGA 10 MG PO (09:34)
[2024-05-12] MEDS: KCL 20 MEQ PO (09:34)
[2024-05-12] MEDS: PROGRAF 1.5 MG PO ×2 (10:17→20:38)
[2024-05-12 10:37] LABS: Body Fluid LDH 2220 U/L
[2024-05-12] MEDS: LASIX 40 MG PO (11:26)
[2024-05-12] MEDS: ALBUMIN 5% 250 IV (11:28)
--- NOTE | 2024-05-12 11:55 | W.PN.HOSP.TC ---
Today's Communication/Plan
-
-Continue IV Lasix and give dose of albumin
-Underwent therapeutic thoracentesis and removed grossly bloody pleural effusion at 2000 ml
-Vascular surgery informed about thoracentesis-no need chest CT unless significant drop with hgb
-Wean oxygen as able to
-Given K replacement
-Follow CBC,BMP and temperature curve
Assessment / Plan
Assessment / Plan
The patient was presented to ER after having 1 episode of large amount diarrhea and his CT abdomen pelvis showed probable enteritis/ileitis. The patient was admitted with a concern of probable sepsis to enteritis and he was started on Zosyn. His
diarrhea diarrhea improved but he has been having ongoing abdominal discomfort as well as constipation. Due to his persistent bacteremia with Pseudomonas aeruginosa, the patient was consulted to ID. It was recommended to have a CT angio pelvis
abdomen for possible aorto bi-iliac stent infection. CT angio abdomen pelvis showed acute aortitis and intraluminal mass in the distal common bile duct. Vascular surgery and gastroenterology team was consulted to assist the patient. The patient
underwent an urgent surgery on 05/01/24 and her infected stent was removed and has a right axillary bifemoral artery bypass on 05/01/2024. The patient was transferred to ICU. The patient was started on vasopressor and extubated on 05/02/24.
Following following, patient started to be gradually hemodynamically stable and vasopressors discontinued.
#Acute metabolic encephalopathy
-Likely multifactorial: possible secondary to cefepime induced encephalopathy vs hospital delirium vs sepsis induced
-His antibiotic regimen changed from cefepime to IV Zosyn
-Delirium precautions ( Keep room quiet, avoid light at nights)
-Avoid unnecessary sedating agents
-Monitor mental status
#Acute hypoxemic respiratory failure
-Chest Xray: Left-sided pleural effusion; Had a thoracentesis
-Follow
#Generalized Edema
-X-ray today showing left pleural effusion near site of previous chest tube; on 4 L as of this morning with SpO2 mid 90s
-Question if this is multifactorial, with him possibly developing CHF; echo on 04/30 with preserved EF
-Ordered BNP to assess for intracardiac stress/volume overload, consulted IR for Dx/Tx thoracentesis
-Continue IV Lasix for now, ordered 12.5 g albumin pretreatment in this an 05/12
-Follow BMP and consider involve nephrology if Cr does not improve
-Consider repeating echo, cardiology consult if not improved
-Underwent therapeutic thoracentesis and removed grossly bloody pleural effusion at 2000 ml
-Follow-up pleural fluid studies from -thoracentesis-Serum LDH was ordered
-Pleural fluid: LDH: 2220, Protein 2.4, glucose 119-
-Vascular surgery informed and not planning further studies by VS team for now until seen a significant drop of hgb
#Sepsis suspected secondary to AAA stent graft infection
-Concern for biliary source with CBD masslike lesion seen on imaging
-Continue IV Zosyn, which was switched from cefepime due to possible cefepime associated encephalopathy
-Cultures from 04/28 through 05/01 positive for Pseudomonas, cultures from 05/02 no growth so far
-Wound culture positive for Pseudomonas from OR on 05/01/2024
-Continue IV Zosyn, plan for 6 weeks of antibiotics with oral suppression regimen after
-Would likely benefit from MRCP +/- ERCP once surgical marija removed
-GI planning MRCP and proceed ERCP after patient is more stable possibly at outpatient setting
#Acute kidney injury
-Creatinine still elevated at 1.4
-Patient seems hypervolemic, question if he has third volume space loaded and depleted intravascular volume
-No signs of obstructive uropathy; Vaughn catheter was successfully removed
-Was given 1 more dose of IV Lasix this am with albumin 12. 5 gr
-Lisinopril remains held, follow-up BMP
-Cardiology consultation can be considered with elevated BNP at 1860 with ongoing symptoms
#Hypokalemia
-Replaced
-Follow up BMP
#CBD mass
-History of liver transplantation in [address] [facility]-on tacrolimus
-History of multiple bile duct stents-all removed per patient report by Dr Short at [facility]
-GI on board, no plans for ERCP this admission, recommend outpatient GI follow-up
-Likely will need to wait until surgical marija removed for MRCP, possibly as OP
#Anemia requiring transfusions (Acute blood loss anemia with baseline chronic disease anemia)
-Suspect secondary to expected surgical blood loss
-Transfused a total of 9 units PRBCs, 2 units FFP, 1 unit of platelets this admission
-Continue to monitor hemoglobin and transfuse further as needed
-CBC has been stable with Plavix and DOAC resumed
#Constipation
-Abdominal o-ryg-jqharfcduci series 04/28: Mild stool burden without obstruction findings
-Rectal rectal suppository was given on 04/29
-Continue bowel regimen
#DM
-Hba1c 7.5
-Continue SSI
-c/w metformin
#Hypervolemic Hyponatremia
-Continue Lasix
-Follow BMP
#Essential hypertension
-Continue Metoprolol 75 mg
-lisinopril on hold
#Paroxysmal atrial fibrillation
-Remains on Eliquis and metoprolol
-Heart rate WNL
#Right-sided cervical radiculopathy and lumbar radiculopathy
-Patient has some pain in his lower back suggesting lumbar radiculopathy
-Strength is preserved
#History of CAD
-Plavix on hold for now with the last dose on 05/01 am
-Statin can e considered to restart
#History of PVCs
#Alcoholic cirrhosis
#Chronic neuropathy
-Continue pregabalin
#COPD without exacerbation
DNR
Diet carbohydrate controlled, Ensure with meals
DVT prophylaxis- heparin
Dispo eventual to SNF v. [facility]
Anticipated Discharge: 24 - 48 hours
Subjective/Interval History
-
Date of Service: May 12, 2024
Patient denies any chest pain or abdominal pain. He underwent to thoracentesis this am.
Objective Data
-
Labs:
Laboratory Results
05/12/24
06:22
WBC 14.0 H
Hgb 8.7 L
Hct 26.5 L
Plt Count 254
Sodium 137
Potassium 3.3 L
Chloride 105
Carbon Dioxide 26
BUN 22 H
Creatinine 1.4 H
Glucose 133 H
Calcium 8.0 L
Total Bilirubin 1.5 H
AST 28
ALT 19
Alkaline Phosphatase 212 H
Vital Signs:
Vital Signs
Temp Pulse Resp BP Pulse Ox
98.0 F 71 18 140/67 95
05/12/24 11:40 05/12/24 11:40 05/12/24 11:40 05/12/24 11:40 05/12/24 11:40
I&O
05/11/24 05/12/24 05/13/24
06:59 06:59 06:59
Intake Total 620 / 620 720 / 720
Output Total 425 / 425 200 / 200
Balance 195 / 195 520 / 520
Review of Systems
-
History Source: Patient
All other systems: Reviewed and negative
Physical Exam
-
General: Well Developed, Well Nourished, No Apparent Distress, Appears Chronically Ill and Obese
HEENT: Normocephalic, Atraumatic and Moist Mucous Membranes
Respiratory: Non Labored Respirations, Decreased Breath Sounds and Other (no wheezing no crackles )
Cardiac: S1/S2 and Irregular Rhythm
GI: Soft, Nontender, Nondistended and Normal Bowel Sounds
Musculoskeletal: No Clubbing, No Cyanosis and Other (3 + pitting edema on bilateral lower and upper extremities )
Skin: Warm and Dry
Neuro: Awake, Alert, Oriented, AO x 3 and Nonfocal/Grossly Intact
Psych: Calm
[2024-05-12 12:01] LABS: Glucose - Point of Care 163 mg/dl (70-99)
[2024-05-12] MEDS: NOVOLOG FLEXPEN-MODERATE RESISTANCE 1 UNITS SC ×2 (13:30→16:51)
--- NOTE | 2024-05-12 13:57 | CM ---
Chart reviewed. Care ongoing at this time
Plan is for patient to d/c to skilled rehab, [facility]. CM to confirm bed availability day of d/c
CM will cont to follow for d/c planning
Plan: SNF; [facility] accepted
[2024-05-12] MEDS: KLOR-CON 40 MEQ PO (14:23)
[2024-05-12 16:44] LABS: Glucose - Point of Care 162 mg/dl (70-99)
[2024-05-12] MEDS: DILAUDID 0.5 MG IV (16:56)
--- NOTE | 2024-05-12 17:18 | W.PN.ID1 ---
Date of Service
Date of Service: May 12, 2024
Today's Communication
See below.
Assessment / Plan
# Pseudomonas bacteremia
# AAA stent graft infection with Pseudomonas
- remote hx AAA s/p aortobi-iliac stent graft (at [facility])
- CTA: acute aortitis
# Biliary obstruction with intraluminal mass in CBD
# Leukocytosis - trending down
# Hx liver transplant; on tacrolimus
#New mental status change - resolved off cefepime
- 05/01 s/p Right axillary bifemoral artery bypass with new ringed [place] graft ; explant of entirety of infected aortic endograft, wide debridement of retroperitoneum.
- 04/30 blood cultures - NGTD
- 05/02 blood cultures - NGTD
- 05/01 tissue cultures from the OR - Pseudomonas aeruginosa
- Continue Zosyn 4.5g q6 through 06/12/24, followed by lifelong suppressive therapy with cipro 500mg po bid. Follow QTc
Discussed with Vascular Dr. Vaughn regarding my concern for lifelong cipro (no alternative po abx) associated with multiple serious potential adverse complications.
Per Vascular - the benefit of lifelong cipro outweighs the risk of infection new prosthetic graft.
Place PICC.
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
Paroxysmal atrial fibrillation
CAD
Hypertension
Neuropathy
COPD
AAA s/p remote hx of aortobi-iliac stent graft (at [facility])
Cholecystectomy
Back surgery
History of multiple bile duct stents
Chief Complaint
-: Leukocytosis and Bacteremia
Subjective / Review of Systems
No new complaints today.
Vital Signs / Physical Exam
Vital Signs
Vital Signs
Temp Pulse Resp BP Pulse Ox
98.2 F 83 20 104/62 95
05/12/24 15:40 05/12/24 15:40 05/12/24 15:40 05/12/24 15:40 05/12/24 15:40
Physical Exam
Constitutional: No Acute Distress and Comfortable
Cardiovascular: Regular Rate and S1/S2
Pulmonary: Clear
Gastrointestinal: Soft and Non Tender
Neurological: AO x 3
Objective Data
Lab Data
Lab Results
05/12/24 06:22
05/12/24 06:22
PT 17.8 Sec (11.4-14.6) H 05/06/24 03:46
INR 1.44 05/06/24 03:46
APTT 37.1 Sec (23.4-35.0) H 05/07/24 05:17
Estimated Creat Clear 58 ml/min 05/12/24 06:22
Lactic Acid 1.4 mmol/L (0.7-2.0) 05/02/24 08:21
Total Bilirubin 1.5 mg/dl (0.2-1.3) H 05/12/24 06:22
AST 28 U/L (17-59) 05/12/24 06:22
ALT 19 U/L (0-50) 05/12/24 06:22
Alkaline Phosphatase 212 U/L (38-126) H 05/12/24 06:22
Most recent labs reviewed.
Micro Results:
05/02/24 12:54 Blood Culture - Final
Blood/Venous No Growth - Final Report
05/02/24 12:37 Blood Culture - Final
Blood/Venous No Growth - Final Report
05/01/24 20:42 Wound Culture - Final
Abdomen Pseudomonas aeruginosa
Gram Stain - Final
05/01/24 20:42 Anaerobic Culture - Final
Abdomen NO ANAEROBES ISOLATED
04/30/24 08:50 Blood Culture - Final
Blood/Venous No Growth - Final Report
04/29/24 06:51 Blood Culture - Final
Blood/Venous Pseudomonas aeruginosa
Gram Stain - Final
04/28/24 13:34 Blood Culture - Final
Blood/Venous Pseudomonas aeruginosa
Gram Stain - Final
04/30/24 09:18 Blood Culture - Final
Blood/Venous No Growth - Final Report
05/01/24 20:42 Tissue Culture - Final
Tissue Pseudomonas aeruginosa
Gram Stain - Final
05/01/24 20:42 Tissue Culture - Final
Heart Pseudomonas aeruginosa
Gram Stain - Final
04/25/24 15:59 Blood Culture - Final
Blood/Venous Pseudomonas aeruginosa
Gram Stain - Final
04/25/24 15:59 Blood Culture - Final
Blood/Venous Pseudomonas aeruginosa
Gram Stain - Final
04/25/24 17:36 Urine Culture - Final
Urine NO GROWTH
04/26/24 00:04 MRSA Screen - Final
Nose No Methicillin Resistant Staphylococcus aureus isolated.
04/25/24 08:58 Influenza Types A & B (NITIN) - Final
Nasal Swab Negative for Influenza A & B, NAAT
Negative results must be combined with clinical observations
and patient history.
Nucleic Acid Amplification test (NAAT)performed on the
[employer] platform.
Imaging:
04/28/24 CT a/p: Probable enteritis/ileus. Cannot rule out developing small bowel obstruction with questionable transition points as described.
04/28/24 Chest/abd xray: Nonobstructive bowel gas pattern. Mild colonic stool burden.
04/30/24 CT angiogram a/p: Aortobiiliac endograft in place with an interval increase in size of the [place] aneurysm sac around the endograft, interval increase in circumferential wall thickening of the [place] aneurysm, mild retroperitoneal
inflammation, and increased small retroperitoneal lymph nodes. The constellation of findings is suggestive of ACUTE AORTITIS which could be secondary to infection or inflammatory disease. 2. Moderate extrahepatic biliary dilatation with suggestion
of an obstructing 1.3 cm intraluminal mass in the distal common bile duct. Diagnostic possibilities are (1) choledocholithiasis or (2) less likely bile duct cancer. Mild wall thickening and hyperenhancement of the common hepatic and common bile
ducts suggesting CHOLANGITIS. 3. Right upper quadrant liver transplant in place with mild pneumobilia in the liver.
Care Review
Plan reviewed with: Physician (Dr. Vaughn)
[2024-05-12 17:43] LABS: LDH 310 U/L (120-246)
[2024-05-12] MEDS: ADVAIR HFA 45/21 MCG INHALER 2 PUFF INH (19:49)
[2024-05-12 21:18] LABS: Glucose - Point of Care 160 mg/dl (70-99)
[2024-05-12] MEDS: ZOFRAN 4 MG IV (22:57)
[2024-05-12] MEDS: TYLENOL 650 MG PO (23:39)
[2024-05-13] VITALS (8 sets, daily range): BP systolic 125–154; BP diastolic 55–66; BMI 27.9
[2024-05-13] MEDS: ZOSYN 100 IV (04:48)
[2024-05-13 05:40] LABS: Hematocrit 25.1 % (39.0-52.0); Hemoglobin 8.1 g/dL (13.0-18.0); Mean Corp Hgb Conc. 32.3 g/dL (33.0-37.0); Mean Corpuscular Hgb 31.4 pg (27.0-31.0); Mean Corpuscular Volume 97.3 fL (80.0-94.0); Mean Platelet Volume 10.4 fL (7.4-10.4); Platelet Count 286 10^3/uL (130-400); Red Blood Cell Count 2.58 10^6/uL (4.70-6.10); Red Cell Dist. Width 17.9 % (11.5-14.5)
[2024-05-13 06:20] LABS: ALT (SGPT) 18 U/L (0-50); AST (SGOT) 28 U/L (17-59); Albumin 2.2 g/dl (3.5-5.0); Alkaline Phosphatase 202 U/L (38-126); Blood Urea Nitrogen 21 mg/dl (9-20); Calcium 8.1 mg/dl (8.4-10.2); Carbon Dioxide 27 mmol/L (22-30); Chloride 106 mmol/L (98-107); Estimated Creatinine Clearance 62 ml/min; Glucose 140 mg/dl (70-99); Magnesium 1.5 mg/dl (1.6-2.3); Potassium 3.5 mmol/L (3.5-5.1); Sodium 140 mmol/L (135-145); Total Bilirubin 1.4 mg/dl (0.2-1.3); Total Protein 4.7 g/dl (6.3-8.2); eGFR 57.65
[2024-05-13] MEDS: ADVAIR HFA 45/21 MCG INHALER 2 PUFF INH ×2 (07:12→19:42)
[2024-05-13] MEDS: SPIRIVA RESPIMAT 2.5 MCG 2 PUFF INH (07:12)
[2024-05-13 07:27] LABS: Glucose - Point of Care 174 mg/dl (70-99)
[2024-05-13] MEDS: NOVOLOG FLEXPEN-MODERATE RESISTANCE 1 UNITS SC ×2 (09:00→16:55)
[2024-05-13] MEDS: TOPROL XL 75 MG PO (09:01)
[2024-05-13] MEDS: PROTONIX 40 MG PO ×2 (09:02→20:01)
[2024-05-13] MEDS: MAGNESIUM OXIDE 500 MG PO ×2 (09:02→20:00)
[2024-05-13] MEDS: FARXIGA 10 MG PO (09:02)
[2024-05-13] MEDS: ELIQUIS 5 MG PO ×2 (09:03→20:00)
[2024-05-13] MEDS: PLAVIX 75 MG PO (09:03)
[2024-05-13] MEDS: PROGRAF 1.5 MG PO ×2 (09:03→20:01)
--- NOTE | 2024-05-13 09:25 | PN.DE.MGMTRT ---
Insulin Management
- -
05/13/2024: Diabetes Management follow up
Patient admitted 04/25 with fever/chills decreased oral intake and diarrhea. PMH including: Paroxysmal A-Fib, CAD, PVCs, alcoholic cirrhosis, hepatitis C s/p liver transplant in 2006 (on immunosuppression), multiple bile duct stents, AAA s/p repair
in 2004, HTN, HLD, COPD chronic tobacco use and T2DM. Prior to admission was taking Metformin 500 mg daily. A1C 7.5%, Cr 1.1, eGFR >60
CT A/P--> enteritis/ileus. Admission blood cultures + Pseudomonas. CT angio showed significant concern for infected aortic endograft and questionable distal common bile duct stone vs mass vs sludge. Pt underwent Right axillary bifemoral artery
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
Pt sleeping comfortably, no family at bedside, Pt is unable to discuss diabetes care plan.
POD # 11 s/p Right axillary bifemoral artery bypass and explant of entirety of infected aortic endograft.
on 05/05, pt transitioned from glycemic protocol to Lantus and NovoLog. 05/08 AM Lantus decreased to 12 units with moderate corrective AC.
05/12 Glucose range 149 to 163. Lantus was stopped on 05/09. No hypoglycemia over the weekend. Fasting glucose today 140.
Tolerating diet. Cr 1.3, eGFR 57.65. Will hold Metformin 500 mg BID. Cont Farxiga 10mg daily, will add Januvia 100 mg daily.
Discussed with nurse. Will cont to follow
Diabetes History
- -
Type of Diabetes: 2
Pre-Admission Diabetes Regimen
05/13/24
05:26
Creatinine 1.3
Lab Results
Hemoglobin A1c 7.5 % (4.0-5.6) H 04/29/24 06:51
Insulin Pump Settings
IP Diabetes Regimen
05/12/24 05/12/24 05/12/24
11:50 16:42 21:16
Glucose
POC Glucose 163 H 162 H 160 H
05/13/24 05/13/24
05:26 07:25
Glucose 140 H
POC Glucose 174 H
Meal type: Lunch
Amount consumed: 100%
Patient Education
[2024-05-13] MEDS: DILAUDID 0.5 MG IV ×2 (10:25→20:03)
[2024-05-13 11:45] LABS: Glucose - Point of Care 229 mg/dl (70-99)
[2024-05-13] MEDS: ZOSYN IV ×2 (12:15→13:29)
[2024-05-13] MEDS: ALBUMIN 5% 250 IV (12:15)
[2024-05-13] MEDS: NOVOLOG FLEXPEN-MODERATE RESISTANCE 3 UNITS SC (12:23)
[2024-05-13] MEDS: JANUVIA 100 MG PO (13:32)
--- NOTE | 2024-05-13 13:33 | W.PN.ID1 ---
Date of Service
Date of Service: May 13, 2024
Today's Communication
Replace Zosyn with ceftazidime.
Assessment / Plan
# Pseudomonas bacteremia
# AAA stent graft infection with Pseudomonas
- remote hx AAA s/p aortobi-iliac stent graft (at [facility])
- CTA: acute aortitis
# Biliary obstruction with intraluminal mass in CBD
# Leukocytosis - trending down
# Hx liver transplant; on tacrolimus
#New mental status change - resolving off cefepime
# Volume overload - suspect due to Zosyn
- 05/01 s/p Right axillary bifemoral artery bypass with new ringed [place] graft ; explant of entirety of infected aortic endograft, wide debridement of retroperitoneum.
- 04/30 blood cultures - NGTD
- 05/02 blood cultures - NGTD
- 05/01 tissue cultures from the OR - Pseudomonas aeruginosa
- Volume overload. s/p 2 L thoracentesis.
Zosyn has high sodium content - > may contribute to volume overload/CHF exacerbation.
-DC Zosyn4.5g IV q6
- change to ceftazidime 2g IV q8h through 06/12/24, followed by lifelong suppressive therapy with cipro 500mg po bid.
- Monitor neuro status while on ceftazidime.
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
Paroxysmal atrial fibrillation
CAD
Hypertension
Neuropathy
COPD
AAA s/p remote hx of aortobi-iliac stent graft (at [facility])
Cholecystectomy
Back surgery
History of multiple bile duct stents
Chief Complaint
-: Leukocytosis and Bacteremia
Vital Signs / Physical Exam
Vital Signs
Vital Signs
Temp Pulse Resp BP Pulse Ox
98.1 F 61 16 151/64 97
05/13/24 12:47 05/13/24 12:47 05/13/24 12:47 05/13/24 12:47 05/13/24 13:17
Physical Exam
Constitutional: No Acute Distress
Cardiovascular: Regular Rate and S1/S2
Pulmonary: Other (Decreased BS)
Gastrointestinal: Soft and Non Tender
Extremities: Edema
Neurological: Awake and Alert
Objective Data
Lab Data
Lab Results
05/13/24 05:26
05/13/24 05:26
PT 17.8 Sec (11.4-14.6) H 05/06/24 03:46
INR 1.44 05/06/24 03:46
APTT 37.1 Sec (23.4-35.0) H 05/07/24 05:17
Estimated Creat Clear 62 ml/min 05/13/24 05:26
Lactic Acid 1.4 mmol/L (0.7-2.0) 05/02/24 08:21
Total Bilirubin 1.4 mg/dl (0.2-1.3) H 05/13/24 05:26
AST 28 U/L (17-59) 05/13/24 05:26
ALT 18 U/L (0-50) 05/13/24 05:26
Alkaline Phosphatase 202 U/L (38-126) H 05/13/24 05:26
Most recent labs reviewed.
Micro Results:
05/02/24 12:54 Blood Culture - Final
Blood/Venous No Growth - Final Report
05/02/24 12:37 Blood Culture - Final
Blood/Venous No Growth - Final Report
05/01/24 20:42 Wound Culture - Final
Abdomen Pseudomonas aeruginosa
Gram Stain - Final
05/01/24 20:42 Anaerobic Culture - Final
Abdomen NO ANAEROBES ISOLATED
04/30/24 08:50 Blood Culture - Final
Blood/Venous No Growth - Final Report
04/29/24 06:51 Blood Culture - Final
Blood/Venous Pseudomonas aeruginosa
Gram Stain - Final
04/28/24 13:34 Blood Culture - Final
Blood/Venous Pseudomonas aeruginosa
Gram Stain - Final
04/30/24 09:18 Blood Culture - Final
Blood/Venous No Growth - Final Report
05/01/24 20:42 Tissue Culture - Final
Tissue Pseudomonas aeruginosa
Gram Stain - Final
05/01/24 20:42 Tissue Culture - Final
Heart Pseudomonas aeruginosa
Gram Stain - Final
04/25/24 15:59 Blood Culture - Final
Blood/Venous Pseudomonas aeruginosa
Gram Stain - Final
04/25/24 15:59 Blood Culture - Final
Blood/Venous Pseudomonas aeruginosa
Gram Stain - Final
04/25/24 17:36 Urine Culture - Final
Urine NO GROWTH
04/26/24 00:04 MRSA Screen - Final
Nose No Methicillin Resistant Staphylococcus aureus isolated.
04/25/24 08:58 Influenza Types A & B (NITIN) - Final
Nasal Swab Negative for Influenza A & B, NAAT
Negative results must be combined with clinical observations
and patient history.
Nucleic Acid Amplification test (NAAT)performed on the
[employer] platform.
Imaging:
04/28/24 CT a/p: Probable enteritis/ileus. Cannot rule out developing small bowel obstruction with questionable transition points as described.
04/28/24 Chest/abd xray: Nonobstructive bowel gas pattern. Mild colonic stool burden.
04/30/24 CT angiogram a/p: Aortobiiliac endograft in place with an interval increase in size of the [place] aneurysm sac around the endograft, interval increase in circumferential wall thickening of the [place] aneurysm, mild retroperitoneal
inflammation, and increased small retroperitoneal lymph nodes. The constellation of findings is suggestive of ACUTE AORTITIS which could be secondary to infection or inflammatory disease. 2. Moderate extrahepatic biliary dilatation with suggestion
of an obstructing 1.3 cm intraluminal mass in the distal common bile duct. Diagnostic possibilities are (1) choledocholithiasis or (2) less likely bile duct cancer. Mild wall thickening and hyperenhancement of the common hepatic and common bile
ducts suggesting CHOLANGITIS. 3. Right upper quadrant liver transplant in place with mild pneumobilia in the liver.
Care Review
Plan reviewed with: Other (Pharmacist Yoni)
--- NOTE | 2024-05-13 13:40 | W.PN.HOSP.TC ---
Addendum entered and electronically signed by Pool Waldron MD 05/13/24 14:57:
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
S/p right axillary bifemoral arterial bypass with explantation of infected graft wire retroperitoneal incision with oversew
-Followed by vascular surgery now signed off and will require outpatient vascular surgery follow-up
ID following recommended to transition Zosyn to ceftazidime IV 2 g Q 8 through 06/12 and continue Cipro 500 twice daily lifelong
Acute hypoxemic respiratory failure secondary to deconditioning and atelectasis
Goal SpO2 88 to 92% is known history of COPD
Incentive spirometer 10 times per hour
Wean O2 as tolerated
Out of bed as tolerated with PT
Hypoalbuminemia with evidence of third spacing/volume overload
Will redose albumin and sandwich with IV Lasix
History of liver transplant
Continue immunosuppressive agents
Outpatient follow-up follow-up with transplant hepatology at [facility]
Hypomagnesemia
IV mag sulfate
Evaluated by physical therapy recommended SNF
Original Note:
Today's Communication/Plan
-
-Started to ceftazidime 2g IV q8h through 06/12/24 by ID/DC iv Zosyn/Plan continue cipro 500 mg BID life-long
-Monitor neurostatus while started on ceftazidime
-Ordered IV Lasix and albumin
-Follow CBC, CMP
Assessment / Plan
Assessment / Plan
The patient was presented to ER after having 1 episode of large amount diarrhea and his CT abdomen pelvis showed probable enteritis/ileitis. The patient was admitted with a concern of probable sepsis to enteritis and he was started on Zosyn. His
diarrhea diarrhea improved but he has been having ongoing abdominal discomfort as well as constipation. Due to his persistent bacteremia with Pseudomonas aeruginosa, the patient was consulted to ID. It was recommended to have a CT angio pelvis
abdomen for possible aorto bi-iliac stent infection. CT angio abdomen pelvis showed acute aortitis and intraluminal mass in the distal common bile duct. Vascular surgery and gastroenterology team was consulted to assist the patient. The patient
underwent an urgent surgery on 05/01/24 and her infected stent was removed and has a right axillary bifemoral artery bypass on 05/01/2024. The patient was transferred to ICU. The patient was started on vasopressor and extubated on 05/02/24.
Following following, patient started to be gradually hemodynamically stable and vasopressors discontinued.
#Acute metabolic encephalopathy
-improving, more oriented and responsive this am
-Likely multifactorial: possible secondary to cefepime induced encephalopathy vs hospital delirium vs sepsis induced
-His antibiotic regimen changed from Zosyn to ceftazidime. (changed to ceftazidime 2g IV q8h through 06/12/24 by ID) with a plan continue cipro 500 mg BID life-long
- Monitor neuro status while on ceftazidime.
-Delirium precautions ( Keep room quiet, avoid light at nights)
-Avoid unnecessary sedating agents
-Monitor mental status
#Acute hypoxemic respiratory failure
-Chest Xray: Left-sided pleural effusion; Had a thoracentesis
-Follow Oxygen saturation
-Wean from supplemental oxygen as able to
-X-ray from 05/12: showing left pleural effusion near site of previous chest tube; on 4 L nasal cannula oxygen with SpO2 mid 90s
-Concern for exacerbation of CHF; echo on 04/30 with preserved EF-can be planned another echo if patient does not improve
-Continue IV Lasix for now, ordered 12.5 g albumin pretreatment in this an 05/12
-Underwent therapeutic thoracentesis and removed grossly bloody pleural effusion at 2000 ml on 05/12/24
-Vascular surgery informed and not planning further studies until seen a significant drop of hgb
#Generalized Edema
-Developed following surgery
-Continue IV Lasix and IV albumin
-Gradually improving
-
#Sepsis suspected secondary to AAA stent graft infection
-Concern for biliary source with CBD masslike lesion seen on imaging
-Antibiotic regimen changed from Zosyn to ceftazidime. (changed to ceftazidime 2g IV q8h through 06/12/24 by ID) with a plan continue cipro 500 mg BID life-long
-Cultures from 04/28 through 05/01 positive for Pseudomonas, cultures from 05/02 no growth so far
-Wound culture positive for Pseudomonas on 05/01/2024
#Acute kidney injury
-Creatinine still elevated at 1.4
-Patient seems hypervolemic, question if he has third volume space loaded and depleted intravascular volume
-No signs of obstructive uropathy; Vaughn catheter was successfully removed
-Was given 1 more dose of IV Lasix this am with albumin 12. 5 gr
-Lisinopril remains held, follow-up BMP
-Cardiology consultation can be considered with elevated BNP at 1860 with ongoing symptoms
#Hypokalemia
-Replaced
-Follow up BMP
#CBD mass
-History of liver transplantation in 2006 at [facility]-on tacrolimus
-History of multiple bile duct stents-all removed per patient report by Dr Short at [facility]
-Would likely benefit from MRCP +/- ERCP once surgical marija removed
-GI planning MRCP and proceed ERCP after patient is more stable possibly at outpatient setting
#Anemia requiring transfusions (Acute blood loss anemia with baseline chronic disease anemia)
-Suspect secondary to expected surgical blood loss
-Transfused a total of 9 units PRBCs, 2 units FFP, 1 unit of platelets this admission
-Continue to monitor hemoglobin and transfuse further as needed
-CBC has been stable with Plavix and DOAC resumed
#Constipation
-Abdominal x-jaj-xdppwvjrnok series 04/28: Mild stool burden without obstruction findings
-Rectal rectal suppository was given on 04/29
-Continue bowel regimen
#DM
-Hba1c 7.5
-Continue SSI
-c/w metformin
#Hypervolemic Hyponatremia
-Continue Lasix
-Follow BMP
#Essential hypertension
-Continue Metoprolol 75 mg
-lisinopril on hold
#Paroxysmal atrial fibrillation
-Remains on Eliquis and metoprolol
-Heart rate WNL
#Right-sided cervical radiculopathy and lumbar radiculopathy
-Patient has some pain in his lower back suggesting lumbar radiculopathy
-Strength is preserved
#History of CAD
-Plavix on hold for now with the last dose on 05/01 am
-Statin can e considered to restart
#History of PVCs
#Alcoholic cirrhosis
#Chronic neuropathy
-Continue pregabalin
#COPD without exacerbation
DNR
Diet carbohydrate controlled, Ensure with meals
DVT prophylaxis- heparin
Dispo eventual to SNF v. [facility]
Anticipated Discharge: 24 - 48 hours
Subjective/Interval History
-
Date of Service: May 13, 2024
Patient reports some improvement with his breathing and denies any chest pain. Seems, has less swelling on his upper and lower extremities.
Objective Data
-
Labs:
Laboratory Results
05/13/24
05:26
WBC 14.0 H
Hgb 8.1 L
Hct 25.1 L
Plt Count 286
Sodium 140
Potassium 3.5
Chloride 106
Carbon Dioxide 27
BUN 21 H
Creatinine 1.3
Glucose 140 H
Calcium 8.1 L
Total Bilirubin 1.4 H
AST 28
ALT 18
Alkaline Phosphatase 202 H
Vital Signs:
Vital Signs
Temp Pulse Resp BP Pulse Ox
98.1 F 61 16 151/64 97
05/13/24 12:47 05/13/24 12:47 05/13/24 12:47 05/13/24 12:47 05/13/24 13:17
I&O
05/12/24 05/13/24 05/14/24
06:59 06:59 06:59
Intake Total 720 / 720 1290 / 1290
Output Total 200 / 200 700 / 700
Balance 520 / 520 590 / 590
Review of Systems
-
History Source: Patient
EENT: Reports No Symptoms Reported
Respiratory: Reports Other (shortness of breath )
Cardiac: Reports No Symptoms
Abdomen/GI: Reports No Symptoms
Genitourinary: Reports No Symptoms
Musculoskeletal: Reports Edema and Other (generalized weakness )
Skin: Reports No Symptoms
Neuro: Reports No Symptoms
Physical Exam
-
General: Well Developed, Well Nourished, No Apparent Distress, Appears Chronically Ill and Obese
HEENT: Normocephalic, Atraumatic and Moist Mucous Membranes
Respiratory: Clear to Auscultation
Cardiac: Regular Rhythm and S1/S2
GI: Soft, Nontender and Nondistended
Musculoskeletal: No Cyanosis, Edema, Right Upper Extrem, Edema, Left Upper Extrem, Edema, Right Lower Extrem, Edema, Left Lower Extrem and Other (3+ pitting edema on bilateral lower extremities )
Skin: Warm
Neuro: Awake, Alert, Oriented and AO x 3
[2024-05-13] MEDS: LASIX 40 MG IV (13:57)
[2024-05-13] MEDS: MAGNESIUM SULFATE 50 IV (15:11)
[2024-05-13] MEDS: FORTAZ 2000 MG IV ×2 (15:31→22:10)
[2024-05-13] MEDS: STERILE WATER FOR INJECTION 10 ML IV ×2 (15:32→22:10)
[2024-05-13 16:27] LABS: Hematocrit 26.6 % (39.0-52.0); Hemoglobin 8.7 g/dL (13.0-18.0); Mean Corp Hgb Conc. 32.7 g/dL (33.0-37.0); Mean Corpuscular Hgb 31.5 pg (27.0-31.0); Mean Corpuscular Volume 96.4 fL (80.0-94.0); Mean Platelet Volume 10.2 fL (7.4-10.4); Platelet Count 300 10^3/uL (130-400); Red Blood Cell Count 2.76 10^6/uL (4.70-6.10); Red Cell Dist. Width 18.2 % (11.5-14.5); White Blood Cell Count 15.6 10^3/uL (4.8-10.8)
[2024-05-13 16:42] LABS: Glucose - Point of Care 158 mg/dl (70-99)
[2024-05-13 21:31] LABS: Glucose - Point of Care 128 mg/dl (70-99)
[2024-05-14] VITALS (7 sets, daily range): BP systolic 109–156; BP diastolic 52–68; PULSE 81–82; O2SAT 97–98; BMI 30.7
[2024-05-14] MEDS: TYLENOL 650 MG PO (02:14)
[2024-05-14] MEDS: FORTAZ 2000 MG IV ×3 (05:53→21:50)
[2024-05-14] MEDS: STERILE WATER FOR INJECTION 10 ML IV ×3 (05:53→21:51)
[2024-05-14] MEDS: ZOFRAN 4 MG IV ×2 (06:08→12:33)
[2024-05-14 07:21] LABS: Hematocrit 25.3 % (39.0-52.0); Hemoglobin 8.3 g/dL (13.0-18.0); Mean Corp Hgb Conc. 32.8 g/dL (33.0-37.0); Mean Corpuscular Hgb 32.2 pg (27.0-31.0); Mean Corpuscular Volume 98.1 fL (80.0-94.0); Mean Platelet Volume 10.4 fL (7.4-10.4); Platelet Count 323 10^3/uL (130-400); Red Blood Cell Count 2.58 10^6/uL (4.70-6.10); White Blood Cell Count 14.6 10^3/uL (4.8-10.8)
[2024-05-14 07:59] LABS: ALT (SGPT) 17 U/L (0-50); AST (SGOT) 27 U/L (17-59); Albumin 2.5 g/dl (3.5-5.0); Alkaline Phosphatase 189 U/L (38-126); Blood Urea Nitrogen 20 mg/dl (9-20); Calcium 8.4 mg/dl (8.4-10.2); Carbon Dioxide 28 mmol/L (22-30); Chloride 106 mmol/L (98-107); Estimated Creatinine Clearance 62 ml/min; Glucose 136 mg/dl (70-99); Potassium 3.7 mmol/L (3.5-5.1); Sodium 142 mmol/L (135-145); Total Bilirubin 1.1 mg/dl (0.2-1.3); Total Protein 4.9 g/dl (6.3-8.2); eGFR 57.65
--- NOTE | 2024-05-14 08:02 | PN.DE.MGMTRT ---
Insulin Management
- -
05/14/2024: Diabetes Management follow up
Patient admitted 04/25 with fever/chills decreased oral intake and diarrhea. PMH including: Paroxysmal A-Fib, CAD, PVCs, alcoholic cirrhosis, hepatitis C s/p liver transplant in 2006 (on immunosuppression), multiple bile duct stents, AAA s/p repair
in 2004, HTN, HLD, COPD chronic tobacco use and T2DM. Prior to admission was taking Metformin 500 mg daily. A1C 7.5%, Cr 1.1, eGFR >60
CT A/P--> enteritis/ileus. Admission blood cultures + Pseudomonas. CT angio showed significant concern for infected aortic endograft and questionable distal common bile duct stone vs mass vs sludge. Pt underwent Right axillary bifemoral artery
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
Pt sleeping comfortably, no family at bedside, Pt is unable to discuss diabetes care plan.
POD # 12 s/p Right axillary bifemoral artery bypass and explant of entirety of infected aortic endograft.
05/13 Glucose range 140 to 229 on regimen of Farxiga 10 mg daily and moderate corrective. Required corrective insulin, 1 to 3 units AC. Januvia 100 mg added to regimen. Glucose improved, HS 128.
05/14 Fasting glucose 136. Tolerating diet. Cr 1.3, eGFR 57.65. Will hold Metformin 500 mg BID. Will continue Farxiga 10mg daily, Januvia 100 mg daily with moderate corrective.
Discussed with nurse. Will cont to follow
Diabetes History
- -
Type of Diabetes: 2
Pre-Admission Diabetes Regimen
05/14/24
07:06
Creatinine 1.3
Lab Results
Hemoglobin A1c 7.5 % (4.0-5.6) H 04/29/24 06:51
Insulin Pump Settings
IP Diabetes Regimen
05/13/24 05/13/24 05/13/24
11:43 16:40 21:30
Glucose
POC Glucose 229 H 158 H 128 H
05/14/24
07:06
Glucose 136 H
POC Glucose
Meal type: Lunch
Amount consumed: 50%
Patient Education
[2024-05-14] MEDS: SPIRIVA RESPIMAT 2.5 MCG 2 PUFF INH (08:18)
[2024-05-14] MEDS: ADVAIR HFA 45/21 MCG INHALER 2 PUFF INH ×2 (08:18→19:15)
[2024-05-14 08:26] LABS: Glucose - Point of Care 151 mg/dl (70-99)
[2024-05-14] MEDS: TOPROL XL 75 MG PO ×2 (09:15→13:50)
[2024-05-14] MEDS: PLAVIX 75 MG PO (09:15)
[2024-05-14] MEDS: PROGRAF 1.5 MG PO ×2 (09:15→20:45)
[2024-05-14] MEDS: NOVOLOG FLEXPEN-MODERATE RESISTANCE 1 UNITS SC ×3 (09:15→17:04)
[2024-05-14] MEDS: MAGNESIUM OXIDE 500 MG PO ×2 (09:16→20:44)
[2024-05-14] MEDS: FARXIGA 10 MG PO (09:16)
[2024-05-14] MEDS: ELIQUIS 5 MG PO ×2 (09:16→20:44)
[2024-05-14] MEDS: JANUVIA 100 MG PO (09:16)
[2024-05-14] MEDS: PROTONIX 40 MG PO ×2 (09:16→20:44)
--- NOTE | 2024-05-14 11:18 | W.PN.HOSP.TC ---
Addendum entered and electronically signed by Pool Waldron MD 05/14/24 14:14:
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
S/p right axillary bifemoral arterial bypass with explantation of infected graft wire retroperitoneal incision with oversew
-Followed by vascular surgery now signed off and will require outpatient vascular surgery follow-up
ID following recommended to transition Zosyn to ceftazidime IV 2 g Q 8 through 06/12 and continue Cipro 500 twice daily lifelong
Acute hypoxemic respiratory failure secondary to deconditioning and atelectasis
Goal SpO2 88 to 92% is known history of COPD
Incentive spirometer 10 times per hour
Wean O2 as tolerated
Out of bed as tolerated with PT
Hypoalbuminemia with evidence of third spacing/volume overload
Will redose albumin and sandwich with IV Lasix 80mg
History of liver transplant
Continue immunosuppressive agents
Outpatient follow-up follow-up with transplant hepatology at [facility]
Hypomagnesemia
IV mag sulfate
Evaluated by physical therapy recommended SNF
Original Note:
Today's Communication/Plan
-
-IV lasix 80 mg and IV albumin
-metoprolol increased to 150 mg daily
-Vascular surgery was asked when marija needed to be removed
-Follow up BMP, CBC
Assessment / Plan
Assessment / Plan
The patient was presented to ER after having 1 episode of large amount diarrhea and his CT abdomen pelvis showed probable enteritis/ileitis. The patient was admitted with a concern of probable sepsis to enteritis and he was started on Zosyn. His
diarrhea diarrhea improved but he has been having ongoing abdominal discomfort as well as constipation. Due to his persistent bacteremia with Pseudomonas aeruginosa, the patient was consulted to ID. It was recommended to have a CT angio pelvis
abdomen for possible aorto bi-iliac stent infection. CT angio abdomen pelvis showed acute aortitis and intraluminal mass in the distal common bile duct. Vascular surgery and gastroenterology team was consulted to assist the patient. The patient
underwent an urgent surgery on 05/01/24 and her infected stent was removed and has a right axillary bifemoral artery bypass on 05/01/2024. The patient was transferred to ICU. The patient was started on vasopressor and extubated on 05/02/24.
Following following, patient started to be gradually hemodynamically stable and vasopressors discontinued. The patient developed a severe generalized edema following the surgery. He was given IV furosemide and albumin based on his overloading
symptoms while tracking his Cr levels.
#Acute metabolic encephalopathy
-improving
-Likely multifactorial: possible secondary to cefepime induced encephalopathy vs hospital delirium vs sepsis induced
-His antibiotic regimen changed from Zosyn to ceftazidime on 05/13/24 (changed to ceftazidime 2g IV q8h through 06/12/24 by ID) with a plan continue cipro 500 mg BID life-long
-Monitor neuro status while on ceftazidime.
-Delirium precautions ( Keep room quiet, avoid light at nights)
-Avoid unnecessary sedating agents
#Acute hypoxemic respiratory failure
-Chest Xray: Left-sided pleural effusion; Had a thoracentesis on 05/12/24
-Chest Xray Post thoracentesis: No evidence for pneumothorax.
-Maintaining saturating well on 2 L of nasal oxygen
-Wean from supplemental oxygen as able to
-Continue incentive spirometry use
-Concern for exacerbation of CHF; echo on 04/30 with preserved EF-can be planned another echo if patient does not improve
-Underwent therapeutic thoracentesis and removed grossly bloody pleural effusion at 2000 ml on 05/12/24
-Vascular surgery informed and not planning further studies until seen a significant drop of hgb
#Generalized Edema
-Developed following surgery
-Continue IV Lasix and IV albumin
-Gradually improving
#Sepsis suspected secondary to AAA stent graft infection (s/p removed of infected stent and right axillary bifemoral artery bypass on 05/01/2024)
-Concern for biliary source with CBD masslike lesion seen on imaging
-Antibiotic regimen changed from Zosyn to ceftazidime. (changed to ceftazidime 2g IV q8h through 06/12/24 by ID) with a plan continue cipro 500 mg BID life-long
-PICC line placed on 05/12/24
-Cultures from 04/28 through 05/01 positive for Pseudomonas, cultures from 05/02 no growth so far
-Wound culture positive for Pseudomonas on 05/01/2024
-Vascular surgery was asked when to remove marija
#Acute kidney injury
-improving
-Creatinine 1.3
-Patient seems hypervolemic, question if he has third volume space loaded and depleted intravascular volume
-No signs of obstructive uropathy; Vaughn catheter was successfully removed
-Was given 1 more dose of IV Lasix at 80 mg this am with albumin 12. 5 gr
-Lisinopril remains held, follow-up BMP
#Hypokalemia
-Replaced
-Follow up BMP
#CBD mass
-History of liver transplantation in 2006 at [facility]-on tacrolimus
-History of multiple bile duct stents-all removed per patient report by Dr Short at [facility]
-Would likely benefit from MRCP +/- ERCP once surgical marija removed
-GI planning MRCP and proceed ERCP after patient is more stable possibly at outpatient setting
#Anemia requiring transfusions (Acute blood loss anemia with baseline chronic disease anemia)
-Suspect secondary to expected surgical blood loss
-Transfused a total of 9 units PRBCs, 2 units FFP, 1 unit of platelets this admission
-Continue to monitor hemoglobin and transfuse further as needed
-CBC has been stable with Plavix and DOAC resumed
#Constipation
-Abdominal c-kdx-lxwzirhetip series 04/28: Mild stool burden without obstruction findings
-Rectal rectal suppository was given on 04/29
-Continue bowel regimen
#DM
-Hba1c 7.5
-Continue SSI
-c/w metformin
#Hypervolemic Hyponatremia
-Continue Lasix
-Follow BMP
#Essential hypertension
-Metoprolol 75 mg went up to 150 mg (home dose)
-lisinopril on hold
#Paroxysmal atrial fibrillation
-Remains on Eliquis and metoprolol
-Heart rate WNL
#Right-sided cervical radiculopathy and lumbar radiculopathy
-Patient has some pain in his lower back suggesting lumbar radiculopathy
-Strength is preserved
#History of CAD
-Plavix on hold for now with the last dose on 05/01 am
-Statin can e considered to restart
#History of PVCs
#Alcoholic cirrhosis
#Chronic neuropathy
-Continue pregabalin
#COPD without exacerbation
DNR
Diet carbohydrate controlled, Ensure with meals
DVT prophylaxis- heparin
Dispo eventual to SNF v. AIR
Anticipated Discharge: 24 - 48 hours
Subjective/Interval History
-
Date of Service: May 14, 2024
At 7.30 am patient was seen at bedside with patient sub acute care nurse, reporting he feels good and denied any chest pain, abdominal pain and shortness of breath.
At around 10.30 am he was seen with Dr Waldron, the patient complained having shortness of breath reporting got worsen. He was taught how to use incentive spirometry more effectively.
Objective Data
-
Labs:
Laboratory Results
05/14/24
07:06
WBC 14.6 H
Hgb 8.3 L
Hct 25.3 L
Plt Count 323
Sodium 142
Potassium 3.7
Chloride 106
Carbon Dioxide 28
BUN 20
Creatinine 1.3
Glucose 136 H
Calcium 8.4
Total Bilirubin 1.1
AST 27
ALT 17
Alkaline Phosphatase 189 H
Vital Signs:
Vital Signs
Temp Pulse Resp BP Pulse Ox
97.6 F 81 16 152/52 92
05/14/24 07:50 05/14/24 08:51 05/14/24 08:51 05/14/24 07:50 05/14/24 09:30
I&O
05/13/24 05/14/24 05/15/24
06:59 06:59 06:59
Intake Total 1290 / 1290 840 / 840
Output Total 700 / 700 1100 / 1100
Balance 590 / 590 -260 / -260
Review of Systems
-
History Source: Patient
EENT: Reports No Symptoms Reported
Respiratory: Reports Other (shortness of breath )
Cardiac: Reports No Symptoms
Abdomen/GI: Reports No Symptoms
Genitourinary: Reports No Symptoms
Musculoskeletal: Reports Other (generalized weakness)
Skin: Reports No Symptoms
Neuro: Reports No Symptoms
Physical Exam
-
General: Well Developed, Well Nourished, Appears Chronically Ill and Obese
HEENT: Normocephalic, Atraumatic, Moist Mucous Membranes, Oxygen (On 2 L nasal Oxygen ) and Other
Respiratory: Clear to Auscultation
Cardiac: Regular Rhythm and S1/S2
GI: Soft, Nontender and Nondistended
Musculoskeletal: No Clubbing, No Cyanosis, Edema, Right Lower Extrem and Edema, Left Lower Extrem
Skin: Warm and IV Access / Catheter Site (Right PICC line)
Neuro: Awake, Alert, Oriented and Nonfocal/Grossly Intact
Psych: Calm
[2024-05-14 12:10] LABS: Glucose - Point of Care 190 mg/dl (70-99)
[2024-05-14] MEDS: ALBUMIN 5% 250 IV (12:39)
--- NOTE | 2024-05-14 13:26 | CM ---
Chart reviewed. Care ongoing at this time
Patient will cont IV abx through 06/13. Plan is for patient to d/c to [facility] for skilled rehab
CM to call [facility] to determine bed availability on day of d/c
Plan: SNF; [facility] accepted
[2024-05-14] MEDS: LASIX 80 MG IV (13:48)
--- NOTE | 2024-05-14 14:44 | W.PN.ID1 ---
Date of Service
Date of Service: May 14, 2024
Today's Communication
Continue ceftazidime.
Assessment / Plan
# Pseudomonas bacteremia
# AAA stent graft infection with Pseudomonas
- remote hx AAA s/p aortobi-iliac stent graft (at [facility])
- CTA: acute aortitis
# Biliary obstruction with intraluminal mass in CBD
- Outpatient ERCP, per GI
# Leukocytosis - trending down
# Hx liver transplant; on tacrolimus
#New mental status change - resolved off cefepime
# Volume overload - suspect due to Zosyn
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
- 04/30 blood cultures - NGTD
- 05/02 blood cultures - NGTD
- 05/01 tissue cultures from the OR - Pseudomonas aeruginosa
- Volume overload.
DC'd Zosyn 05/13; abx has high sodium content - > may contribute to volume overload/CHF exacerbation.
- Continue ceftazidime 2g IV q8h through 06/12/24, followed by lifelong suppressive therapy with cipro 500mg po bid.
- Monitor neuro status while on ceftazidime.
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
Paroxysmal atrial fibrillation
CAD
Hypertension
Neuropathy
COPD
AAA s/p remote hx of aortobi-iliac stent graft (at [facility])
Cholecystectomy
Back surgery
History of multiple bile duct stents
Chief Complaint
-: Bacteremia and Other (Endograft infection)
Subjective / Review of Systems
No complaints.
Vital Signs / Physical Exam
Vital Signs
Vital Signs
Temp Pulse Resp BP Pulse Ox
97.5 F 67 20 146/70 92
05/14/24 11:05 05/14/24 13:50 05/14/24 11:05 05/14/24 13:48 05/14/24 11:57
Physical Exam
Constitutional: No Acute Distress and Comfortable
Cardiovascular: Regular Rate and S1/S2
Pulmonary: Other (decreased BS bases)
Gastrointestinal: Soft, Non Tender and Non Distended
Genito-Urinary: Negative CVA Tenderness
Extremities: Edema
Neurological: AO x 3
Objective Data
Lab Data
Lab Results
05/14/24 07:06
05/14/24 07:06
PT 17.8 Sec (11.4-14.6) H 05/06/24 03:46
INR 1.44 05/06/24 03:46
APTT 37.1 Sec (23.4-35.0) H 05/07/24 05:17
Estimated Creat Clear 62 ml/min 05/14/24 07:06
Lactic Acid 1.4 mmol/L (0.7-2.0) 05/02/24 08:21
Total Bilirubin 1.1 mg/dl (0.2-1.3) 05/14/24 07:06
AST 27 U/L (17-59) 05/14/24 07:06
ALT 17 U/L (0-50) 05/14/24 07:06
Alkaline Phosphatase 189 U/L (38-126) H 05/14/24 07:06
Most recent labs reviewed.
Micro Results:
05/02/24 12:54 Blood Culture - Final
Blood/Venous No Growth - Final Report
05/02/24 12:37 Blood Culture - Final
Blood/Venous No Growth - Final Report
05/01/24 20:42 Wound Culture - Final
Abdomen Pseudomonas aeruginosa
Gram Stain - Final
05/01/24 20:42 Anaerobic Culture - Final
Abdomen NO ANAEROBES ISOLATED
04/30/24 08:50 Blood Culture - Final
Blood/Venous No Growth - Final Report
04/29/24 06:51 Blood Culture - Final
Blood/Venous Pseudomonas aeruginosa
Gram Stain - Final
04/28/24 13:34 Blood Culture - Final
Blood/Venous Pseudomonas aeruginosa
Gram Stain - Final
04/30/24 09:18 Blood Culture - Final
Blood/Venous No Growth - Final Report
05/01/24 20:42 Tissue Culture - Final
Tissue Pseudomonas aeruginosa
Gram Stain - Final
05/01/24 20:42 Tissue Culture - Final
Heart Pseudomonas aeruginosa
Gram Stain - Final
04/25/24 15:59 Blood Culture - Final
Blood/Venous Pseudomonas aeruginosa
Gram Stain - Final
04/25/24 15:59 Blood Culture - Final
Blood/Venous Pseudomonas aeruginosa
Gram Stain - Final
04/25/24 17:36 Urine Culture - Final
Urine NO GROWTH
04/26/24 00:04 MRSA Screen - Final
Nose No Methicillin Resistant Staphylococcus aureus isolated.
04/25/24 08:58 Influenza Types A & B (NITIN) - Final
Nasal Swab Negative for Influenza A & B, NAAT
Negative results must be combined with clinical observations
and patient history.
Nucleic Acid Amplification test (NAAT)performed on the
[employer] platform.
Imaging:
04/28/24 CT a/p: Probable enteritis/ileus. Cannot rule out developing small bowel obstruction with questionable transition points as described.
04/28/24 Chest/abd xray: Nonobstructive bowel gas pattern. Mild colonic stool burden.
04/30/24 CT angiogram a/p: Aortobiiliac endograft in place with an interval increase in size of the [place] aneurysm sac around the endograft, interval increase in circumferential wall thickening of the [place] aneurysm, mild retroperitoneal
inflammation, and increased small retroperitoneal lymph nodes. The constellation of findings is suggestive of ACUTE AORTITIS which could be secondary to infection or inflammatory disease. 2. Moderate extrahepatic biliary dilatation with suggestion
of an obstructing 1.3 cm intraluminal mass in the distal common bile duct. Diagnostic possibilities are (1) choledocholithiasis or (2) less likely bile duct cancer. Mild wall thickening and hyperenhancement of the common hepatic and common bile
ducts suggesting CHOLANGITIS. 3. Right upper quadrant liver transplant in place with mild pneumobilia in the liver.
[2024-05-14 16:58] LABS: Glucose - Point of Care 161 mg/dl (70-99)
[2024-05-14 21:07] LABS: Glucose - Point of Care 137 mg/dl (70-99)
[2024-05-14] MEDS: MYLICON 80 MG PO (21:50)
[2024-05-15] VITALS (7 sets, daily range): BP systolic 107–157; BP diastolic 51–78; BMI 30.7
[2024-05-15] MEDS: ZOFRAN 4 MG IV (00:31)
[2024-05-15 04:34] LABS: Hematocrit 24.9 % (39.0-52.0); Hemoglobin 8.1 g/dL (13.0-18.0); Mean Corp Hgb Conc. 32.5 g/dL (33.0-37.0); Mean Corpuscular Hgb 31.5 pg (27.0-31.0); Mean Corpuscular Volume 96.9 fL (80.0-94.0); Mean Platelet Volume 9.9 fL (7.4-10.4); Platelet Count 315 10^3/uL (130-400); Red Blood Cell Count 2.57 10^6/uL (4.70-6.10); Red Cell Dist. Width 18.2 % (11.5-14.5); White Blood Cell Count 12.8 10^3/uL (4.8-10.8)
[2024-05-15 05:11] LABS: ALT (SGPT) 15 U/L (0-50); AST (SGOT) 26 U/L (17-59); Albumin 2.4 g/dl (3.5-5.0); Alkaline Phosphatase 184 U/L (38-126); Blood Urea Nitrogen 20 mg/dl (9-20); Calcium 8.5 mg/dl (8.4-10.2); Carbon Dioxide 30 mmol/L (22-30); Chloride 107 mmol/L (98-107); Estimated Creatinine Clearance 62 ml/min; Glucose 141 mg/dl (70-99); Potassium 3.4 mmol/L (3.5-5.1); Sodium 142 mmol/L (135-145); Total Protein 4.9 g/dl (6.3-8.2); eGFR 57.65
[2024-05-15] MEDS: STERILE WATER FOR INJECTION 10 ML IV ×3 (05:17→21:06)
[2024-05-15] MEDS: FORTAZ 2000 MG IV ×3 (05:17→21:06)
--- NOTE | 2024-05-15 06:45 | W.PN.HOSP.TC ---
Addendum entered and electronically signed by Pool Waldron MD 05/15/24 15:16:
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
S/p right axillary bifemoral arterial bypass with explantation of infected graft wire retroperitoneal incision with oversew
-Followed by vascular surgery now signed off and will require outpatient vascular surgery follow-up
ID following recommended to transition Zosyn to ceftazidime IV 2 g Q 8 through 06/12 and continue Cipro 500 twice daily lifelong
Acute hypoxemic respiratory failure secondary to deconditioning and atelectasis
Goal SpO2 88 to 92% is known history of COPD
Incentive spirometer 10 times per hour
Wean O2 as tolerated
Out of bed as tolerated with PT
Hypoalbuminemia with evidence of third spacing/volume overload
Will redose albumin and sandwich with IV Lasix 80mg
History of liver transplant
Continue immunosuppressive agents
Outpatient follow-up follow-up with transplant hepatology at [facility]
Hypomagnesemia
IV mag sulfate
Liver transplant
Follows with [facility] Hep
Contiune Tac
Abd pain
Could be related to CBD dilation/mass/stone vs suture/staple line
-MRI/MRCP once marija have been removed (should be today)
-Follow LFT's
-GI asked to re-eval for possible ERCP/EUS Bx
Evaluated by physical therapy recommended SNF
Original Note:
Today's Communication/Plan
-
-IV albumin and lasix
-Replaced K
-Replaced Mg
-GI and Vascular surgery was consulted
Assessment / Plan
Assessment / Plan
The patient was presented to ER after having 1 episode of large amount diarrhea and his CT abdomen pelvis showed probable enteritis/ileitis. The patient was admitted with a concern of probable sepsis to enteritis and he was started on Zosyn. His
diarrhea diarrhea improved but he has been having ongoing abdominal discomfort as well as constipation. Due to his persistent bacteremia with Pseudomonas aeruginosa, the patient was consulted to ID. It was recommended to have a CT angio pelvis
abdomen for possible aorto bi-iliac stent infection. CT angio abdomen pelvis showed acute aortitis and intraluminal mass in the distal common bile duct. Vascular surgery and gastroenterology team was consulted to assist the patient. The patient
underwent an urgent surgery on 05/01/24 and her infected stent was removed and has a right axillary bifemoral artery bypass on 05/01/2024. The patient was transferred to ICU. The patient was started on vasopressor and extubated on 05/02/24.
Following following, patient started to be gradually hemodynamically stable and vasopressors discontinued. The patient developed a severe generalized edema following the surgery. He was given IV furosemide and albumin based on his overloading
symptoms while tracking his Cr levels.
#Acute metabolic encephalopathy
-improving
-Likely multifactorial: possible secondary to cefepime induced encephalopathy vs hospital delirium vs sepsis induced
-His antibiotic regimen changed from Zosyn to ceftazidime on 05/13/24 (changed to ceftazidime 2g IV q8h through 06/12/24 by ID) with a plan continue cipro 500 mg BID life-long
-Monitor neuro status while on ceftazidime.
-Delirium precautions ( Keep room quiet, avoid light at nights)
-Avoid unnecessary sedating agents
#Arhytma
-NSVT in the am
-Replace and keep K >4 -- given 40 meq this am
-Replace and keep Mg >2 -- given 2 gr this am
-Follow telemetry and BMP
#Acute hypoxemic respiratory failure
-Chest Xray: Left-sided pleural effusion; Had a thoracentesis on 05/12/24
-Chest Xray Post thoracentesis: No evidence for pneumothorax.
-Maintaining saturating well on 2 L of nasal oxygen
-Wean from supplemental oxygen as able to
-Continue incentive spirometry use
-Concern for exacerbation of CHF; echo on 04/30 with preserved EF-can be planned another echo if patient does not improve
-Underwent therapeutic thoracentesis and removed grossly bloody pleural effusion at 2000 ml on 05/12/24
-Vascular surgery informed and not planning further studies until seen a significant drop of hgb
#Generalized Edema
-Developed following surgery
-Continue IV Lasix and IV albumin
-Gradually improving
#Sepsis suspected secondary to AAA stent graft infection (s/p removed of infected stent and right axillary bifemoral artery bypass on 05/01/2024)
-Concern for biliary source with CBD masslike lesion seen on imaging
-Antibiotic regimen changed from Zosyn to ceftazidime. (changed to ceftazidime 2g IV q8h through 06/12/24 by ID) with a plan continue cipro 500 mg BID life-long
-PICC line placed on 05/12/24
-Cultures from 04/28 through 05/01 positive for Pseudomonas, cultures from 05/02 no growth so far
-Wound culture positive for Pseudomonas on 05/01/2024
-Vascular surgery was asked when to remove marija and will see the patient
#Acute kidney injury
-improving
-Creatinine 1.3
-Patient seems hypervolemic, question if he has third volume space loaded and depleted intravascular volume
-No signs of obstructive uropathy; Vaughn catheter was successfully removed
-Was given 1 more dose of IV Lasix at 80 mg + with albumin 12. 5 gr
#Hypokalemia
-Replaced
-Follow up BMP
#CBD mass
-History of liver transplantation in 2006 at [facility]-on tacrolimus
-History of multiple bile duct stents-all removed per patient report by Dr Short at [facility]
-Would likely benefit from MRCP +/- ERCP once surgical marija removed
-GI consulted given assessment and plan by vascular surgery removing the marija
-GI planning MRCP and proceed ERCP after patient is more stable possibly at outpatient setting
#Anemia requiring transfusions (Acute blood loss anemia with baseline chronic disease anemia)
-Suspect secondary to expected surgical blood loss
-Transfused a total of 9 units PRBCs, 2 units FFP, 1 unit of platelets this admission
-Continue to monitor hemoglobin and transfuse further as needed
-CBC has been stable with Plavix and DOAC resumed
#Constipation
-Abdominal w-vis-kruijbfbboh series 04/28: Mild stool burden without obstruction findings
-Rectal rectal suppository was given on 04/29
-Continue bowel regimen
#DM
-Hba1c 7.5
-Continue SSI
-c/w metformin
#Hypervolemic Hyponatremia
-Continue Lasix
-Follow BMP
#Essential hypertension
-Metoprolol 75 mg went up to 150 mg (home dose)
-lisinopril 10 mg restarted
#Paroxysmal atrial fibrillation
-Remains on Eliquis and metoprolol
#Right-sided cervical radiculopathy and lumbar radiculopathy
-Patient has some pain in his lower back suggesting lumbar radiculopathy
-Strength is preserved
#History of CAD
-Plavix on hold for now with the last dose on 05/01 am
-Statin can e considered to restart
#History of PVCs
#Alcoholic cirrhosis
#Chronic neuropathy
-Continue pregabalin
#COPD without exacerbation
DNR
Diet carbohydrate controlled, Ensure with meals
DVT prophylaxis- heparin
Dispo eventual to SNF v. [facility]
Anticipated Discharge: 24 - 48 hours
Subjective/Interval History
-
Date of Service: May 15, 2024
Patient complained from abdominal pain this morning. He had a bowel movement this morning. He reports still having shortness of breath. Denies chest pain and back pain.
Objective Data
-
Labs:
Laboratory Results
05/15/24
04:25
WBC 12.8 H
Hgb 8.1 L
Hct 24.9 L
Plt Count 315
Sodium 142
Potassium 3.4 L
Chloride 107
Carbon Dioxide 30
BUN 20
Creatinine 1.3
Glucose 141 H
Calcium 8.5
Total Bilirubin 1.0
AST 26
ALT 15
Alkaline Phosphatase 184 H
Vital Signs:
Vital Signs
Temp Pulse Resp BP Pulse Ox
98.3 F 72 17 156/68 93
05/15/24 03:25 05/15/24 03:25 05/15/24 03:25 05/15/24 03:25 05/15/24 03:25
I&O
05/13/24 05/14/24 05/15/24
06:59 06:59 06:59
Intake Total 1290 / 1290 840 / 840 1430 / 1430
Output Total 700 / 700 1100 / 1100 1600 / 1600
Balance 590 / 590 -260 / -260 -170 / -170
Review of Systems
-
History Source: Patient
EENT: Reports No Symptoms Reported
Respiratory: Reports Other (shortness of breath)
Cardiac: Reports No Symptoms
Abdomen/GI: Reports Abdominal Pain (mid abdominal area )
Genitourinary: Reports No Symptoms
Musculoskeletal: Reports Other (generalized weakness)
Skin: Reports No Symptoms
Neuro: Reports No Symptoms
Physical Exam
-
General: Well Developed, Well Nourished, Appears Chronically Ill and Obese
HEENT: Normocephalic, Atraumatic and Oxygen (On 2 L nasal Oxygen)
Respiratory: Clear to Auscultation
Cardiac: Regular Rhythm and S1/S2
GI: Soft, Nondistended and Tender (mild tender on mid abdominal area )
Musculoskeletal: Clubbing, Edema, Right Lower Extrem and Edema, Left Lower Extrem
Skin: Warm and IV Access / Catheter Site (Right PICC line)
Neuro: Awake, Alert, Oriented and Nonfocal/Grossly Intact
Psych: Calm
[2024-05-15 07:18] LABS: Glucose - Point of Care 150 mg/dl (70-99)
[2024-05-15] MEDS: ADVAIR HFA 45/21 MCG INHALER 2 PUFF INH ×2 (07:22→19:21)
[2024-05-15] MEDS: SPIRIVA RESPIMAT 2.5 MCG 2 PUFF INH (07:23)
--- NOTE | 2024-05-15 07:53 | PN.DE.MGMTRT ---
Insulin Management
- -
05/15/2024: Diabetes Management follow up
Patient admitted 04/25 with fever/chills decreased oral intake and diarrhea. PMH including: Paroxysmal A-Fib, CAD, PVCs, alcoholic cirrhosis, hepatitis C s/p liver transplant in 2006 (on immunosuppression), multiple bile duct stents, AAA s/p repair
in 2004, HTN, HLD, COPD chronic tobacco use and T2DM. Prior to admission was taking Metformin 500 mg daily. On admission A1C 7.5%, Cr 1.1, eGFR >60
CT A/P--> enteritis/ileus. Admission blood cultures + Pseudomonas. CT angio showed significant concern for infected aortic endograft and questionable distal common bile duct stone vs mass vs sludge. Pt underwent Right axillary bifemoral artery
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
Pt sleeping comfortably, no family at bedside, Pt is unable to discuss diabetes care plan.
POD # 13 s/p Right axillary bifemoral artery bypass and explant of entirety of infected aortic endograft.
05/14 Glucose range 136 to 190 on regimen of Farxiga 10 mg daily, Januvia 100 mg daily and moderate corrective. Required corrective insulin, 1 unit @ lunch and dinner.
05/15 Fasting glucose 141. Tolerating diet. Cr 1.3, eGFR 57.65 for 3 consecutive days. Will resume Metformin 500 mg BID continue Farxiga 10mg daily, Januvia 100 mg daily with moderate corrective.
Discussed with nurse. Will cont to follow
Diabetes History
- -
Type of Diabetes: 2
Pre-Admission Diabetes Regimen
05/14/24 05/15/24
07:06 04:25
Creatinine 1.3 1.3
Lab Results
Hemoglobin A1c 7.5 % (4.0-5.6) H 04/29/24 06:51
Insulin Pump Settings
IP Diabetes Regimen
05/14/24 05/14/24 05/14/24
07:06 08:24 12:08
Glucose 136 H
POC Glucose 151 H 190 H
05/14/24 05/14/24 05/15/24
16:56 21:05 04:25
Glucose 141 H
POC Glucose 161 H 137 H
05/15/24
07:16
Glucose
POC Glucose 150 H
Patient Education
[2024-05-15 08:01] LABS: Magnesium 1.6 mg/dl (1.6-2.3)
[2024-05-15] MEDS: NOVOLOG FLEXPEN-MODERATE RESISTANCE 1 UNITS SC ×2 (08:16→12:13)
[2024-05-15] MEDS: PROTONIX 40 MG PO ×2 (08:18→21:05)
[2024-05-15] MEDS: TYLENOL 650 MG PO ×3 (08:18→23:29)
[2024-05-15] MEDS: TOPROL XL 100 MG PO (08:19)
[2024-05-15] MEDS: FARXIGA 10 MG PO (08:19)
[2024-05-15] MEDS: MAGNESIUM OXIDE 500 MG PO ×2 (08:19→21:05)
[2024-05-15] MEDS: ELIQUIS 5 MG PO ×2 (08:23→21:04)
[2024-05-15] MEDS: TOPROL XL 50 MG PO (08:24)
[2024-05-15] MEDS: PROGRAF 1.5 MG PO ×2 (08:26→21:05)
[2024-05-15] MEDS: JANUVIA 100 MG PO (08:26)
[2024-05-15] MEDS: GLUCOPHAGE 500 MG PO ×2 (08:27→17:49)
[2024-05-15] MEDS: PLAVIX 75 MG PO (08:27)
[2024-05-15] MEDS: KCL 40 MEQ PO (08:48)
--- NOTE | 2024-05-15 10:56 | W.PN.ID1 ---
Date of Service
Date of Service: May 15, 2024
Today's Communication
Continue ceftazidime.
Assessment / Plan
# Pseudomonas bacteremia (4 sets)
# AAA stent graft infection with Pseudomonas
- remote hx AAA s/p aortobi-iliac stent graft (at [facility])
- CTA: acute aortitis
# Biliary obstruction with intraluminal mass in CBD
- Outpatient ERCP, per GI
# Leukocytosis - trending down
# Hx liver transplant; on tacrolimus
#mental status change - resolved off cefepime
# Volume overload - suspect due to Zosyn
- 05/01 s/p Right axillary bifemoral artery bypass with new ringed [place] graft ; explant of entirety of infected aortic endograft, wide debridement of retroperitoneum.
- 04/30 blood cultures - Neg
- 05/02 blood cultures - Neg
- 05/01 tissue cultures from the OR - Pseudomonas aeruginosa
- Volume overload.
DC'd Zosyn 05/13; abx has high sodium content - > may contribute to volume overload/CHF exacerbation.
- Continue ceftazidime 2g IV q8h through 06/12/24, followed by lifelong suppressive therapy with cipro 500mg po bid.
- Infusion sheet submitted to [facility] [employer].
- Monitor neuro status while on ceftazidime.
# Conditions DOWNSTAIRS MAID
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
Paroxysmal atrial fibrillation
CAD
Hypertension
Neuropathy
COPD
AAA s/p remote hx of aortobi-iliac stent graft (at [facility])
Cholecystectomy
Back surgery
History of multiple bile duct stents
Chief Complaint
-: Bacteremia and Other (Endograft infection)
Subjective / Review of Systems
No new complaint.
Vital Signs / Physical Exam
Vital Signs
Vital Signs
Temp Pulse Resp BP Pulse Ox
97.8 F 69 18 157/76 94
05/15/24 08:02 05/15/24 08:02 05/15/24 08:02 05/15/24 08:02 05/15/24 08:02
Physical Exam
Constitutional: No Acute Distress and Comfortable
Cardiovascular: Regular Rate and S1/S2
Pulmonary: Other (decreased BS bases)
Gastrointestinal: Soft, Non Tender and Non Distended
Genito-Urinary: Negative CVA Tenderness
Extremities: Edema
Neurological: AO x 3
Objective Data
Lab Data
Lab Results
05/15/24 04:25
05/15/24 04:25
PT 17.8 Sec (11.4-14.6) H 05/06/24 03:46
INR 1.44 05/06/24 03:46
APTT 37.1 Sec (23.4-35.0) H 05/07/24 05:17
Estimated Creat Clear 62 ml/min 05/15/24 04:25
Lactic Acid 1.4 mmol/L (0.7-2.0) 05/02/24 08:21
Total Bilirubin 1.0 mg/dl (0.2-1.3) 05/15/24 04:25
AST 26 U/L (17-59) 05/15/24 04:25
ALT 15 U/L (0-50) 05/15/24 04:25
Alkaline Phosphatase 184 U/L (38-126) H 05/15/24 04:25
Most recent labs reviewed.
Micro Results:
05/02/24 12:54 Blood Culture - Final
Blood/Venous No Growth - Final Report
05/02/24 12:37 Blood Culture - Final
Blood/Venous No Growth - Final Report
05/01/24 20:42 Wound Culture - Final
Abdomen Pseudomonas aeruginosa
Gram Stain - Final
05/01/24 20:42 Anaerobic Culture - Final
Abdomen NO ANAEROBES ISOLATED
04/30/24 08:50 Blood Culture - Final
Blood/Venous No Growth - Final Report
04/29/24 06:51 Blood Culture - Final
Blood/Venous Pseudomonas aeruginosa
Gram Stain - Final
04/28/24 13:34 Blood Culture - Final
Blood/Venous Pseudomonas aeruginosa
Gram Stain - Final
04/30/24 09:18 Blood Culture - Final
Blood/Venous No Growth - Final Report
05/01/24 20:42 Tissue Culture - Final
Tissue Pseudomonas aeruginosa
Gram Stain - Final
05/01/24 20:42 Tissue Culture - Final
Heart Pseudomonas aeruginosa
Gram Stain - Final
04/25/24 15:59 Blood Culture - Final
Blood/Venous Pseudomonas aeruginosa
Gram Stain - Final
04/25/24 15:59 Blood Culture - Final
Blood/Venous Pseudomonas aeruginosa
Gram Stain - Final
04/25/24 17:36 Urine Culture - Final
Urine NO GROWTH
04/26/24 00:04 MRSA Screen - Final
Nose No Methicillin Resistant Staphylococcus aureus isolated.
04/25/24 08:58 Influenza Types A & B (NITIN) - Final
Nasal Swab Negative for Influenza A & B, NAAT
Negative results must be combined with clinical observations
and patient history.
Nucleic Acid Amplification test (NAAT)performed on the
[employer] platform.
Imaging:
04/28/24 CT a/p: Probable enteritis/ileus. Cannot rule out developing small bowel obstruction with questionable transition points as described.
04/28/24 Chest/abd xray: Nonobstructive bowel gas pattern. Mild colonic stool burden.
04/30/24 CT angiogram a/p: Aortobiiliac endograft in place with an interval increase in size of the [place] aneurysm sac around the endograft, interval increase in circumferential wall thickening of the [place] aneurysm, mild retroperitoneal
inflammation, and increased small retroperitoneal lymph nodes. The constellation of findings is suggestive of ACUTE AORTITIS which could be secondary to infection or inflammatory disease. 2. Moderate extrahepatic biliary dilatation with suggestion
of an obstructing 1.3 cm intraluminal mass in the distal common bile duct. Diagnostic possibilities are (1) choledocholithiasis or (2) less likely bile duct cancer. Mild wall thickening and hyperenhancement of the common hepatic and common bile
ducts suggesting CHOLANGITIS. 3. Right upper quadrant liver transplant in place with mild pneumobilia in the liver.
[2024-05-15 11:45] LABS: Glucose - Point of Care 159 mg/dl (70-99)
[2024-05-15] MEDS: MAGNESIUM SULFATE 50 IV (12:10)
[2024-05-15] MEDS: FLUSH (NSS) 2 FLUSH IV ×2 (12:11→17:49)
--- NOTE | 2024-05-15 12:37 | W.PN.GI.CBS2 ---
Addendum entered and electronically signed by Garland Villarreal MD 05/15/24 18:09:
I saw and examined the patient.
The [employer] MECHANIC or PA's note was reviewed and I agree with the note.
Comment: 73-year-old gentleman past medical history of alcoholic and hep C cirrhosis status post liver transplant 2006, multiple bile duct stents, paroxysmal A-fib on Eliquis, CAD with prior IA and stents on Plavix, AAA with prior repair at [facility]
presenting initially with fever, nausea, decreased oral intake, diarrhea, constipation, bloating, cough. Found to have Pseudomonas bacteremia. CTA with aortitis and underwent right axillary bifemoral art bypass with ringed graft and explant of
entire aortic endograft via retroperitoneal incision with oversew of aortic and iliac system with debridement of retroperitoneum.
GI asked to reconsult with ongoing periumbilical pain. Patient states the pain is worse with food. He was noted on CTA to have extrahepatic biliary ductal dilation with possible obstructing mass. Plan for MRI after he has his marija removed
tomorrow for further evaluation.
Original Note:
Today's Communication / Plan
-
Asked to see again for abdominal pain-- persistent since admission but eating without fever
GI work up has been on hold with vascular issues initial CTA 04/30 with extrahepatic biliary dilatation and suggest obstructing mass distal CBD/choledocholithiasis
pt with hx liver transplant and multiple biliary stents with narrowing in past
next step was MRI with MRCP when marija are out and due to come out today
in review LFt's with slow improving and only some alk phos elevation at this time, renal function normal, WBC 12,800(lowest since admission) no fever
no signs of cholangitis
will again request [facility] records of prior stenting last request 05/01 not completed -- reviewed with nursing staff
await order for MRI/MRCP when marija out
if remains stable may need OP follow up with [facility] where he has extensive stenting and liver transplant in past
cont diet
pain control per hospitalist
Pt currently on Eliquis if intervention is needed will need hold
Assessment / Plan
-
Pt is 73yo with hx ETOH hepatitis/hep C s/p liver transplant 2006 [facility] on chronic tacrolimus, multiple bile duct stents, PAF on Eliquis, CAD with prior IA and stents on Plavix , PVC's, COPD, HTN, AAA with prior repair at [facility], New DM,
presents with fever, nausea, decreased oral intakes, diarrhea then constipation, bloating and mild cough with admission 04/25 . Initially asked to see with nausea, bloating, diarrhea, decreased appetite with persistent pseudomonas bacteremia. Work
up on admission with CT a/p with IV contrast with probable enteritis/ileus cannot rule out SBO, obs series with non obs pattern mild stool burden, and CTA with concern for acute aortitis, extrahepatic biliary dilatation and suggest obstructing 1.3
cm mass distal CBD, choledocholithiasis or less likely bile duct CA with mild wall thickening of common hepatic and common bile duct suggest cholangitis, s/p liver transplant with pneumobilia, cystitis, chronic renal disease, DDD, CM and
atherosclerosis.Pt went for 05/01 for right axillary bifemoral art bypass with ringed graft and explant of entire aortic endograft via retroperitoneal incision with oversew of aortic and iliac system with debridement of retroperitoneum. Pt has been
waiting for follow up MRI when improved from recent surgery. LFT's improving since admission.
-persistent abdominal pain
-CTA 04/30 with extrahepatic biliary dilatation and suggest obstructing mass distal CBD/choledocholithiasis
-concern aortitis on admission s/p 05/01 for right axillary bifemoral art bypass with ringed graft and explant of entire aortic endograft via retroperitoneal incision with oversew of aortic and iliac system with debridement of retroperitoneum.
-diarrhea then constipation
-persistent pseudomonas bacteremia
-Ct with enteritis/ileus
-hx liver transplant 2006(ETOH and hep C) [facility] on chronic tacrolimus
-mild bili and alk phos elevation
-hx multiple biliary stents last several years ago with ? bile duct narrowing
-CAD/stents on Plavix
-PAF on Eliquis
other med problems:
-PVC's
-COPD
-HTN
-AAA with aortobil-iliac graft at [facility]
-new DM
-CM
-DDD
PLAN:
Asked to see again for abdominal pain-- persistent since admission but eating without fever
GI work up has been on hold with vascular issues initial CTA 04/30 with extrahepatic biliary dilatation and suggest obstructing mass distal CBD/choledocholithiasis
pt with hx liver transplant and multiple biliary stents with narrowing in past
next step was MRI with MRCP when marija are out and due to come out today
in review LFt's with slow improving and only some alk phos elevation at this time, renal function normal, WBC 12,800(lowest since admission) no fever
no signs of cholangitis
will again request [facility] records of prior stenting last request 05/01 not completed -- reviewed with nursing staff
await order for MRI/MRCP when marija out
if remains stable may need OP follow up with [facility] where he has extensive stenting and liver transplant in past
cont diet
pain control per hospitalist
Pt currently on Eliquis if intervention is needed will need hold
Subjective
Subjective
Date of Service: May 15, 2024
asked to see again for abdominal pain persistent since admission --on ADA diet, 05/14 brown stool
Objective
Data Reviewed
Laboratory Data:
Laboratory Results
05/15/24 04:25
Laboratory Results
PT 17.8 Sec (11.4-14.6) H 05/06/24 03:46
INR 1.44 05/06/24 03:46
APTT 37.1 Sec (23.4-35.0) H 05/07/24 05:17
Phosphorus 3.0 mg/dl (2.5-4.5) 05/07/24 05:17
Magnesium Cancelled 05/15/24 06:00
Total Bilirubin 1.0 mg/dl (0.2-1.3) 05/15/24 04:25
AST 26 U/L (17-59) 05/15/24 04:25
ALT 15 U/L (0-50) 05/15/24 04:25
Alkaline Phosphatase 184 U/L (38-126) H 05/15/24 04:25
Lipase 37 U/L (23-300) 04/29/24 06:51
Vital Signs and I&O:
Vital Signs
Temp Pulse Resp BP Pulse Ox
97.7 F 68 20 134/51 94
05/15/24 11:28 05/15/24 11:28 05/15/24 11:28 05/15/24 11:28 05/15/24 11:28
I&O
05/14/24 05/15/24 05/16/24
06:59 06:59 06:59
Intake Total 840 / 840 1430 / 1430
Output Total 1100 / 1100 1600 / 1600 100 / 100
Balance -260 / -260 -170 / -170 -100 / -100
Physical Exam
Physical Exam
HEENT: Anicteric and Moist mucous membranes
Cardiology: Normal Sinus Rhythm
Pulmonary: Clear
GI: Soft, Non Distended, Tender (minimal ) and Other (abd incision with staple in place )
Neuro: Non Focal
[2024-05-15] MEDS: ALBUMIN 5% 250 IV (14:41)
[2024-05-15 15:08] LABS: ALT (SGPT) 18 U/L (0-50); AST (SGOT) 30 U/L (17-59); Albumin 2.9 g/dl (3.5-5.0); Alkaline Phosphatase 210 U/L (38-126); Blood Urea Nitrogen 18 mg/dl (9-20); Calcium 8.9 mg/dl (8.4-10.2); Carbon Dioxide 28 mmol/L (22-30); Chloride 105 mmol/L (98-107); Estimated Creatinine Clearance 57 ml/min; Glucose 127 mg/dl (70-99); Potassium 3.8 mmol/L (3.5-5.1); Sodium 141 mmol/L (135-145); Total Bilirubin 1.1 mg/dl (0.2-1.3); Total Protein 5.7 g/dl (6.3-8.2); eGFR 52.74
--- NOTE | 2024-05-15 16:01 | W.PN.UPDATE ---
Update Note
Progress Note Update
Seen and examined. Patient is without any significant new complaints. His incision sites are all clean dry and intact/healed. Abdomen is soft, nondistended, nontender. Feet are warm with dopplerable signals. Plan/remove marija chest wall right
side, right lateral chest wall, abdominal. Every other staple to be removed in the groins. If okay then likely will remove the remainder tomorrow. Would favor CT angiogram of the chest/abdomen/pelvis prior to discharge. Continue antibiotics.
[2024-05-15 16:58] LABS: Glucose - Point of Care 136 mg/dl (70-99)
[2024-05-15] MEDS: NOVOLOG FLEXPEN-MODERATE RESISTANCE SC (17:47)
[2024-05-15] MEDS: LASIX 80 MG IV (17:49)
[2024-05-15 22:50] LABS: Glucose - Point of Care 167 mg/dl (70-99)
[2024-05-16] VITALS (9 sets, daily range): BP systolic 134–159; BP diastolic 58–74; PULSE 68; O2SAT 98; BMI 30.3
[2024-05-16] MEDS: FORTAZ 2000 MG IV ×3 (05:04→21:41)
[2024-05-16] MEDS: STERILE WATER FOR INJECTION 10 ML IV ×3 (05:04→21:41)
[2024-05-16] MEDS: TYLENOL 650 MG PO ×3 (05:09→21:58)
--- NOTE | 2024-05-16 06:35 | W.PN.GI.CBS2 ---
Today's Communication / Plan
-
Please see assessment and plan for details.
Assessment / Plan
-
1. 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 True obstruction seems less
likely given otherwise normal LFTs. He does follow closely with hepatology at [facility]. When the remainder of his marija removed we will plan MRI.
2. Abdominal pain: Likely multifactorial with complicated hospitalization with infected graft and bacteremia, status post surgery, though overall benign exam, tolerating diet, again only minimal elevation of alkaline phosphatase, clinically doubt
significant biliary obstruction adding to his abdominal pain. Continue PPI and supportive care for now.
3. 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 Continue antirejection medications, will follow-up at [facility].
4. Diarrhea: Likely multifactorial, possibly medication related given antibiotics and magnesium. Will check C. difficile.
Subjective
Subjective
Date of Service: May 16, 2024
Patient feeling okay, still complains of leg tightness and discomfort, more diffuse abdominal pain which is overall vague, though did tolerate hamburger and other food yesterday without vomiting. Did have loose stool yesterday, no obvious bleeding.
Still has some marija remaining.
Objective
Data Reviewed
Laboratory Data:
Laboratory Results
PT 17.8 Sec (11.4-14.6) H 05/06/24 03:46
INR 1.44 05/06/24 03:46
APTT 37.1 Sec (23.4-35.0) H 05/07/24 05:17
Phosphorus 3.0 mg/dl (2.5-4.5) 05/07/24 05:17
Magnesium Cancelled 05/15/24 06:00
Total Bilirubin 1.1 mg/dl (0.2-1.3) 05/15/24 14:15
AST 30 U/L (17-59) 05/15/24 14:15
ALT 18 U/L (0-50) 05/15/24 14:15
Alkaline Phosphatase 210 U/L (38-126) H 05/15/24 14:15
Lipase 37 U/L (23-300) 04/29/24 06:51
Vital Signs and I&O:
Vital Signs
Temp Pulse Resp BP Pulse Ox
97.8 F 67 18 153/70 95
05/16/24 03:14 05/16/24 03:14 05/16/24 03:14 05/16/24 03:14 05/16/24 03:14
I&O
05/14/24 05/15/24 05/16/24
06:59 06:59 06:59
Intake Total 840 / 840 1430 / 1430 1490 / 1490
Output Total 1100 / 1100 1600 / 1600 675 / 675
Balance -260 / -260 -170 / -170 815 / 815
Physical Exam
Physical Exam
General: NAD
Abdomen: normal bowel sounds, soft, no tenderness, no masses or bruits, no ascites
--- NOTE | 2024-05-16 06:58 | W.PN.HOSP.TC ---
Addendum entered and electronically signed by Pool Waldron MD 05/16/24 14:26:
NAD
Scleral Anicteric
MMM
No JVD
Left lower lobe diminished
RRR, S1/S2
Soft, NT, ND, BS+
Warm, Dry
Bilateral lower extremities with peripheral pitting edema
AAOx3
Calm
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
-Followed by vascular surgery now signed off and will require outpatient vascular surgery follow-up
ID following recommended to transition Zosyn to ceftazidime IV 2 g Q 8 through 06/12 and continue Cipro 500 twice daily lifelong
AAA stent graft infection
-Explanted by vascular surgery
-S/p right axillary bifemoral arterial bypass with explantation of infected graft wire retroperitoneal incision with oversew
-Vilas partially removed by vascular surgery
-Vascular surgery wants to repeat CTA chest/abd/pelv
Acute hypoxemic respiratory failure secondary to deconditioning and atelectasis
Goal SpO2 88 to 92% is known history of COPD
Incentive spirometer 10 times per hour
Wean O2 as tolerated
Out of bed as tolerated with PT
Hypoalbuminemia with evidence of third spacing/volume overload
Will redose albumin and sandwich with IV Lasix 80mg
Wrap bilateral lower extremities
History of liver transplant
Continue immunosuppressive agents
Outpatient follow-up follow-up with transplant hepatology at [facility]
Hypomagnesemia
IV mag sulfate
Liver transplant
Follows with [facility] Hep
Contiune Tac
Abd pain
Could be related to CBD dilation/mass/stone vs suture/staple line
-MRI/MRCP once marija have been removed
-Follow LFT's
-GI asked to re-eval for possible ERCP/EUS Bx
Evaluated by physical therapy recommended SNF
Original Note:
Today's Communication/Plan
-
-Chest X ray
-IV Lasix and albumin
-Compression Therapy
-CT angio pending
-Follow BMP, CBC
Assessment / Plan
Assessment / Plan
The patient was presented to ER after having 1 episode of large amount diarrhea and his CT abdomen pelvis showed probable enteritis/ileitis. The patient was admitted with a concern of probable sepsis to enteritis and he was started on Zosyn. His
diarrhea diarrhea improved but he has been having ongoing abdominal discomfort as well as constipation. Due to his persistent bacteremia with Pseudomonas aeruginosa, the patient was consulted to ID. It was recommended to have a CT angio pelvis
abdomen for possible aorto bi-iliac stent infection. CT angio abdomen pelvis showed acute aortitis and intraluminal mass in the distal common bile duct. Vascular surgery and gastroenterology team was consulted to assist the patient. The patient
underwent an urgent surgery on 05/01/24 and her infected stent was removed and has a right axillary bifemoral artery bypass on 05/01/2024. The patient was transferred to ICU. The patient was started on vasopressor and extubated on 05/02/24.
Following following, patient started to be gradually hemodynamically stable and vasopressors discontinued. The patient developed a severe generalized edema following the surgery. He was started and continued on IV furosemide and albumin based on
his overloading symptoms while tracking his Cr levels.
#Sepsis suspected secondary to AAA stent graft infection (s/p removed of infected stent and right axillary bifemoral artery bypass on 05/01/2024)
-Concern for biliary source with CBD masslike lesion seen on imaging
-Antibiotic regimen changed from Zosyn to ceftazidime. (changed to ceftazidime 2g IV q8h through 06/12/24 by ID) with a plan continue cipro 500 mg BID life-long
-PICC line placed on 05/12/24
-Cultures from 04/28 through 05/01 positive for Pseudomonas, cultures from 05/02 no growth so far
-Wound culture positive for Pseudomonas on 05/01/2024
-Vascular surgery removed most of staplers on 05/15 and planning to remove rest of it today
-CT angio ordered by vascular surgery-pending to be obtained
#Abdominal Pain
-CBD mass on CT
-History of liver transplantation in 2006 at [facility]-on tacrolimus
-History of multiple bile duct stents-all removed per patient report by Dr Short at [facility]
-GI planning MRCP after all marija removed
#Acute metabolic encephalopathy
-improving
-Likely multifactorial: possible secondary to cefepime induced encephalopathy vs hospital delirium vs sepsis induced
-His antibiotic regimen changed from Zosyn to ceftazidime on 05/13/24 (changed to ceftazidime 2g IV q8h through 06/12/24 by ID) with a plan continue cipro 500 mg BID life-long
-Monitor neuro status while on ceftazidime.
-Delirium precautions ( Keep room quiet, avoid light at nights)
-Avoid unnecessary sedating agents
#Arhytma
-NSVT in the am
-Replace and keep K >4 -- given 40 meq this am
-Replace and keep Mg >2 -- given 2 gr this am
-Follow telemetry and BMP
#Acute hypoxemic respiratory failure
-Chest X ray ordered 05/16/24-pending
-Chest Xray -Left-sided pleural effusion; Had a thoracentesis on 05/12/24
-Maintaining saturating well on 2 L of nasal oxygen
-Hx of COPD
-Wean from supplemental oxygen as able to
-Continue incentive spirometry use
-Concern for exacerbation of CHF; echo on 04/30 with preserved EF-can be planned another echo if patient does not improve
#Generalized Edema
-Developed following surgery
-Continue IV Lasix and IV albumin
-Gradually improving
-Compression Therapy with NADEEM wrapping
#Acute kidney injury
-improved
-Creatinine 1.4 on 05/16
-Patient seems hypervolemic, question if he has third volume space loaded and depleted intravascular volume
-No signs of obstructive uropathy; Vaughn catheter was successfully removed
#Hypokalemia
-Replaced
-Follow up BMP
#Anemia requiring transfusions (Acute blood loss anemia with baseline chronic disease anemia)
-Suspect secondary to expected surgical blood loss
-Transfused a total of 9 units PRBCs, 2 units FFP, 1 unit of platelets this admission
-Continue to monitor hemoglobin and transfuse further as needed
-CBC has been stable with Plavix and Eliquis resumed
#DM
-Hba1c 7.5
-Continue SSI
-c/w metformin
#Essential hypertension
-Metoprolol 150 mg
-lisinopril 10 mg
#Paroxysmal atrial fibrillation
-Remains on Eliquis and metoprolol
#Right-sided cervical radiculopathy and lumbar radiculopathy
-Patient has some pain in his lower back suggesting lumbar radiculopathy
-Strength is preserved
#History of CAD
-Continue Plavix
-Statin can be considered to restart
#History of PVCs
#Alcoholic cirrhosis
#Chronic neuropathy
-Continue pregabalin
DNR
Diet carbohydrate controlled, Ensure with meals
DVT prophylaxis- heparin
Dispo eventual to [facility] v. [facility]
Anticipated Discharge: 24 - 48 hours
Subjective/Interval History
-
Date of Service: May 16, 2024
Patient reports shortness of breath and abdominal pain. He denies chest pain or back pain.
Objective Data
-
Labs:
Laboratory Results
05/16/24
06:00
WBC Pending
Hgb Pending
Hct Pending
Plt Count Pending
Sodium Pending
Potassium Pending
Chloride Pending
Carbon Dioxide Pending
BUN Pending
Creatinine Pending
Glucose Pending
Calcium Pending
Vital Signs:
Vital Signs
Temp Pulse Resp BP Pulse Ox
97.8 F 67 18 153/70 95
05/16/24 03:14 05/16/24 03:14 05/16/24 03:14 05/16/24 03:14 05/16/24 03:14
I&O
05/14/24 05/15/24 05/16/24
06:59 06:59 06:59
Intake Total 840 / 840 1430 / 1430 1490 / 1490
Output Total 1100 / 1100 1600 / 1600 675 / 675
Balance -260 / -260 -170 / -170 815 / 815
Review of Systems
-
History Source: Patient
EENT: Reports No Symptoms Reported
Respiratory: Reports Other (shortness of breath)
Cardiac: Reports No Symptoms
Abdomen/GI: Reports Abdominal Pain (mid abdominal area ) and Other
Genitourinary: Reports Dysuria
Musculoskeletal: Reports Other
Skin: Reports No Symptoms and Other
Neuro: Reports No Symptoms
Physical Exam
-
General: Well Developed, Well Nourished, Appears Chronically Ill and Obese
HEENT: Normocephalic, Atraumatic and Oxygen (On 2 L nasal Oxygen)
Respiratory: Clear to Auscultation and Decreased Breath Sounds
Cardiac: Regular Rhythm and S1/S2
GI: Soft, Nondistended and Tender (mild tender on mid abdominal area)
Musculoskeletal: No Clubbing, No Cyanosis, Edema, Right Lower Extrem and Edema, Left Lower Extrem
Skin: Warm and IV Access / Catheter Site (Right PICC line)
Neuro: Awake, Alert, Oriented and AO x 3
Psych: Agitated
[2024-05-16 07:23] LABS: Glucose - Point of Care 122 mg/dl (70-99)
--- NOTE | 2024-05-16 07:24 | PN.DE.MGMTRT ---
Insulin Management
- -
05/16/2024: Diabetes Management follow up
Patient admitted 04/25 with fever/chills decreased oral intake and diarrhea. PMH including: Paroxysmal A-Fib, CAD, PVCs, alcoholic cirrhosis, hepatitis C s/p liver transplant in 2006 (on immunosuppression), multiple bile duct stents, AAA s/p repair
in 2004, HTN, HLD, COPD chronic tobacco use and T2DM. Prior to admission was taking Metformin 500 mg daily. On admission A1C 7.5%, Cr 1.1, eGFR >60
CT A/P--> enteritis/ileus. Admission blood cultures + Pseudomonas. CT angio showed significant concern for infected aortic endograft and questionable distal common bile duct stone vs mass vs sludge. Pt underwent Right axillary bifemoral artery
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
Pt awake, restless no family at bedside, Pt is unable to discuss diabetes care plan.
POD # 14 s/p Right axillary bifemoral artery bypass and explant of entirety of infected aortic endograft.
05/15 Glucose range 127 to 167 on regimen of Farxiga 10 mg daily, Januvia 100 mg daily, metformin 500 mg BID resumed, and moderate corrective. Required no corrective insulin.
05/16 Tolerating diet. Cr 1.4, eGFR 57.65, will continue current regimen Farxiga 10mg daily, Januvia 100 mg daily and metformin 500 mg BID with moderate corrective.
Discussed with nurse. Will cont to follow
Diabetes History
- -
Type of Diabetes: 2
Pre-Admission Diabetes Regimen
05/15/24
14:15
Creatinine 1.4 H
Lab Results
Hemoglobin A1c 7.5 % (4.0-5.6) H 04/29/24 06:51
Insulin Pump Settings
IP Diabetes Regimen
05/15/24 05/15/24 05/15/24
11:44 14:15 16:56
Glucose 127 H
POC Glucose 159 H 136 H
05/15/24 05/16/24
22:48 07:22
Glucose
POC Glucose 167 H 122 H
Meal type: Dinner
Meal type: Lunch
Meal type: Breakfast
Amount consumed: 100%
Amount consumed: 100%
Amount consumed: 100%
Patient Education
[2024-05-16] MEDS: SPIRIVA RESPIMAT 2.5 MCG 2 PUFF INH (07:27)
[2024-05-16] MEDS: ADVAIR HFA 45/21 MCG INHALER 2 PUFF INH ×2 (07:28→19:41)
[2024-05-16 08:33] LABS: Hematocrit 27.1 % (39.0-52.0); Hemoglobin 8.9 g/dL (13.0-18.0); Mean Corp Hgb Conc. 32.8 g/dL (33.0-37.0); Mean Corpuscular Volume 97.5 fL (80.0-94.0); Mean Platelet Volume 10.7 fL (7.4-10.4); Platelet Count 386 10^3/uL (130-400); Red Blood Cell Count 2.78 10^6/uL (4.70-6.10); Red Cell Dist. Width 18.1 % (11.5-14.5); White Blood Cell Count 11.4 10^3/uL (4.8-10.8)
[2024-05-16 09:09] LABS: Blood Urea Nitrogen 20 mg/dl (9-20); Calcium 8.8 mg/dl (8.4-10.2); Carbon Dioxide 29 mmol/L (22-30); Chloride 106 mmol/L (98-107); Estimated Creatinine Clearance 57 ml/min; Glucose 118 mg/dl (70-99); Potassium 3.8 mmol/L (3.5-5.1); Sodium 143 mmol/L (135-145); eGFR 52.74
--- NOTE | 2024-05-16 09:56 | W.PN.ID1 ---
Date of Service
Date of Service: May 16, 2024
Today's Communication
Continue ceftazidime
Assessment / Plan
# Pseudomonas bacteremia (4 sets)
# AAA stent graft infection with Pseudomonas
- remote hx AAA s/p aortobi-iliac stent graft (at [facility])
- CTA: acute aortitis
# Biliary obstruction with intraluminal mass in CBD
- Outpatient ERCP, per GI
# Leukocytosis - trending down
# Hx liver transplant; on tacrolimus
#mental status change - resolved off cefepime
# Volume overload - suspect due to Zosyn
- 05/01 s/p Right axillary bifemoral artery bypass with new ringed [place] graft ; explant of entirety of infected aortic endograft, wide debridement of retroperitoneum.
- 04/30 blood cultures - Neg
- 05/02 blood cultures - Neg
- 05/01 tissue cultures from the OR - Pseudomonas aeruginosa
- Volume overload.
DC'd Zosyn 05/13; abx has high sodium content - > may contribute to volume overload/CHF exacerbation.
- Continue ceftazidime 2g IV q8h through 06/12/24, followed by lifelong suppressive therapy with cipro 500mg po bid.
- Infusion sheet submitted to [employer].
# Conditions [employer]
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
Paroxysmal atrial fibrillation
CAD
Hypertension
Neuropathy
COPD
AAA s/p remote hx of aortobi-iliac stent graft (at [facility])
Cholecystectomy
Back surgery
History of multiple bile duct stents
Chief Complaint
-: Bacteremia and Other (Endograft infection)
Subjective / Review of Systems
Still with abd discomfort
Vital Signs / Physical Exam
Vital Signs
Vital Signs
Temp Pulse Resp BP Pulse Ox
98.1 F 72 18 140/74 97
05/16/24 07:40 05/16/24 07:40 05/16/24 07:40 05/16/24 07:40 05/16/24 07:40
Physical Exam
Constitutional: No Acute Distress and Comfortable
Cardiovascular: Regular Rate and S1/S2
Pulmonary: Other (decreased BS bases)
Gastrointestinal: Soft, Non Tender and Non Distended
Genito-Urinary: Negative CVA Tenderness
Extremities: Edema (Decreasiing LE edema)
Neurological: AO x 3
Lines: PICC (RUE intact)
Objective Data
Lab Data
Lab Results
05/16/24 07:28
05/16/24 07:28
PT 17.8 Sec (11.4-14.6) H 05/06/24 03:46
INR 1.44 05/06/24 03:46
APTT 37.1 Sec (23.4-35.0) H 05/07/24 05:17
Estimated Creat Clear 57 ml/min 05/16/24 07:28
Lactic Acid 1.4 mmol/L (0.7-2.0) 05/02/24 08:21
Total Bilirubin 1.1 mg/dl (0.2-1.3) 05/15/24 14:15
AST 30 U/L (17-59) 05/15/24 14:15
ALT 18 U/L (0-50) 05/15/24 14:15
Alkaline Phosphatase 210 U/L (38-126) H 05/15/24 14:15
Most recent labs reviewed.
Micro Results:
05/02/24 12:54 Blood Culture - Final
Blood/Venous No Growth - Final Report
05/02/24 12:37 Blood Culture - Final
Blood/Venous No Growth - Final Report
05/01/24 20:42 Wound Culture - Final
Abdomen Pseudomonas aeruginosa
Gram Stain - Final
05/01/24 20:42 Anaerobic Culture - Final
Abdomen NO ANAEROBES ISOLATED
04/30/24 08:50 Blood Culture - Final
Blood/Venous No Growth - Final Report
04/29/24 06:51 Blood Culture - Final
Blood/Venous Pseudomonas aeruginosa
Gram Stain - Final
04/28/24 13:34 Blood Culture - Final
Blood/Venous Pseudomonas aeruginosa
Gram Stain - Final
04/30/24 09:18 Blood Culture - Final
Blood/Venous No Growth - Final Report
05/01/24 20:42 Tissue Culture - Final
Tissue Pseudomonas aeruginosa
Gram Stain - Final
05/01/24 20:42 Tissue Culture - Final
Heart Pseudomonas aeruginosa
Gram Stain - Final
04/25/24 15:59 Blood Culture - Final
Blood/Venous Pseudomonas aeruginosa
Gram Stain - Final
04/25/24 15:59 Blood Culture - Final
Blood/Venous Pseudomonas aeruginosa
Gram Stain - Final
04/25/24 17:36 Urine Culture - Final
Urine NO GROWTH
04/26/24 00:04 MRSA Screen - Final
Nose No Methicillin Resistant Staphylococcus aureus isolated.
04/25/24 08:58 Influenza Types A & B (NITIN) - Final
Nasal Swab Negative for Influenza A & B, NAAT
Negative results must be combined with clinical observations
and patient history.
Nucleic Acid Amplification test (NAAT)performed on the
[employer] platform.
Imaging:
04/28/24 CT a/p: Probable enteritis/ileus. Cannot rule out developing small bowel obstruction with questionable transition points as described.
04/28/24 Chest/abd xray: Nonobstructive bowel gas pattern. Mild colonic stool burden.
04/30/24 CT angiogram a/p: Aortobiiliac endograft in place with an interval increase in size of the [place] aneurysm sac around the endograft, interval increase in circumferential wall thickening of the [place] aneurysm, mild retroperitoneal
inflammation, and increased small retroperitoneal lymph nodes. The constellation of findings is suggestive of ACUTE AORTITIS which could be secondary to infection or inflammatory disease. 2. Moderate extrahepatic biliary dilatation with suggestion
of an obstructing 1.3 cm intraluminal mass in the distal common bile duct. Diagnostic possibilities are (1) choledocholithiasis or (2) less likely bile duct cancer. Mild wall thickening and hyperenhancement of the common hepatic and common bile
ducts suggesting CHOLANGITIS. 3. Right upper quadrant liver transplant in place with mild pneumobilia in the liver.
[2024-05-16] MEDS: MAGNESIUM OXIDE 500 MG PO ×2 (09:59→20:04)
[2024-05-16] MEDS: FARXIGA 10 MG PO (09:59)
[2024-05-16] MEDS: PROTONIX 40 MG PO ×2 (09:59→20:04)
[2024-05-16] MEDS: ZESTRIL 10 MG PO (09:59)
[2024-05-16] MEDS: GLUCOPHAGE 500 MG PO ×2 (10:00→17:36)
[2024-05-16] MEDS: TOPROL XL 50 MG PO (10:00)
[2024-05-16] MEDS: PROGRAF 1.5 MG PO ×2 (10:00→20:04)
[2024-05-16] MEDS: TOPROL XL 100 MG PO (10:00)
[2024-05-16] MEDS: PLAVIX 75 MG PO (10:00)
[2024-05-16] MEDS: ELIQUIS 5 MG PO ×2 (10:00→20:04)
[2024-05-16] MEDS: JANUVIA 100 MG PO (10:01)
[2024-05-16] MEDS: NOVOLOG FLEXPEN-MODERATE RESISTANCE SC ×3 (10:01→16:53)
[2024-05-16] MEDS: NSS 1000 IV (11:56)
[2024-05-16 12:18] LABS: Glucose - Point of Care 149 mg/dl (70-99)
[2024-05-16] MEDS: ALBUMIN 5% 250 IV (15:13)
[2024-05-16] MEDS: KCL 20 MEQ PO (15:14)
--- NOTE | 2024-05-16 15:24 | CM ---
Plan: discharge to SNF pending bed availability when stable
[2024-05-16 15:50] LABS: Urine Albumin 2+ (Neg - Trace); Urine Bilirubin Negative (Negative); Urine Character Clear (Clear); Urine Color Yellow; Urine Glucose 3+ (Negative); Urine Ketone Negative (Negative); Urine Leukocyte Negative (Negative); Urine Nitrite Negative (Negative); Urine Occult Blood 3+ (Negative); Urine Urobilinogen Negative (Neg - 1+)
[2024-05-16 15:58] LABS: Urine Hyaline Cast >15 /LPF (0-2); Urine Squamous Cell 0-2 /LPF (Few)
[2024-05-16 15:59] LABS: Urine Bacteria Few (Negative); Urine White Cell 0-2 /HPF (0-5)
[2024-05-16 16:38] LABS: Glucose - Point of Care 138 mg/dl (70-99)
--- NOTE | 2024-05-16 17:30 | W.PN.UPDATE ---
Update Note
Progress Note Update
I reviewed CT scan of the chest/abdomen/pelvis. As expected some postoperative changes. But no major concerning findings from a vascular perspective. His axillary bifemoral bypass is widely patent. The infrarenal aortic stump remains ligated
without any evidence of obvious infection. Postoperative fluid collection as expected.
[2024-05-16] MEDS: FLUSH (NSS) 2 FLUSH IV (17:37)
[2024-05-16] MEDS: LASIX 80 MG IV (17:37)
[2024-05-16 21:34] LABS: Glucose - Point of Care 130 mg/dl (70-99)
[2024-05-17] VITALS (8 sets, daily range): BP systolic 134–156; BP diastolic 59–76; BMI 27.8
[2024-05-17] MEDS: TYLENOL 650 MG PO (02:45)
[2024-05-17 04:30] LABS: Hematocrit 25.3 % (39.0-52.0); Hemoglobin 8.2 g/dL (13.0-18.0); Mean Corp Hgb Conc. 32.4 g/dL (33.0-37.0); Mean Corpuscular Hgb 31.9 pg (27.0-31.0); Mean Corpuscular Volume 98.4 fL (80.0-94.0); Mean Platelet Volume 10.5 fL (7.4-10.4); Platelet Count 375 10^3/uL (130-400); Red Blood Cell Count 2.57 10^6/uL (4.70-6.10); Red Cell Dist. Width 18.5 % (11.5-14.5); White Blood Cell Count 10.6 10^3/uL (4.8-10.8)
[2024-05-17 04:59] LABS: ALT (SGPT) 14 U/L (0-50); AST (SGOT) 25 U/L (17-59); Albumin 2.5 g/dl (3.5-5.0); Alkaline Phosphatase 167 U/L (38-126); Blood Urea Nitrogen 19 mg/dl (9-20); Calcium 8.7 mg/dl (8.4-10.2); Carbon Dioxide 31 mmol/L (22-30); Chloride 107 mmol/L (98-107); Estimated Creatinine Clearance 61 ml/min; Glucose 109 mg/dl (70-99); Magnesium 1.7 mg/dl (1.6-2.3); Potassium 3.7 mmol/L (3.5-5.1); Sodium 142 mmol/L (135-145); Total Bilirubin 0.9 mg/dl (0.2-1.3); eGFR 57.65
[2024-05-17] MEDS: STERILE WATER FOR INJECTION 10 ML IV ×3 (05:46→21:10)
[2024-05-17] MEDS: FORTAZ 2000 MG IV ×3 (05:46→21:09)
[2024-05-17 07:08] LABS: Glucose - Point of Care 114 mg/dl (70-99)
[2024-05-17] MEDS: SPIRIVA RESPIMAT 2.5 MCG 2 PUFF INH (07:40)
[2024-05-17] MEDS: ADVAIR HFA 45/21 MCG INHALER 2 PUFF INH (07:40)
--- NOTE | 2024-05-17 08:52 | W.PN.ID1 ---
Date of Service
Date of Service: May 17, 2024
Today's Communication
Continue ceftazidime.
Assessment / Plan
# Pseudomonas bacteremia (4 sets)
# AAA stent graft infection with Pseudomonas
- remote hx AAA s/p aortobi-iliac stent graft (at [facility])
- CTA: acute aortitis
# Biliary obstruction with intraluminal mass in CBD
- No longer seen on repeat CTA c/a/p 05/16
- GI following
# Leukocytosis - resolved
# Hx liver transplant; on tacrolimus
#mental status change - resolved off cefepime
# Volume overload - suspect due to Zosyn
- 05/01 s/p Right axillary bifemoral artery bypass with new ringed [place] graft ; explant of entirety of infected aortic endograft, wide debridement of retroperitoneum.
- 04/30 blood cultures - Neg
- 05/02 blood cultures - Neg
- 05/01 tissue cultures from the OR - Pseudomonas aeruginosa
- Volume overload.
DC'd Zosyn 05/13; abx has high sodium content - > may contribute to volume overload/CHF exacerbation.
- Continue ceftazidime 2g IV q8h through 06/12/24, followed by lifelong suppressive therapy with cipro 500mg po bid.
- Infusion sheet submitted to [employer].
# Conditions [employer]
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
Paroxysmal atrial fibrillation
CAD
Hypertension
Neuropathy
COPD
AAA s/p remote hx of aortobi-iliac stent graft (at [facility])
Cholecystectomy
Back surgery
History of multiple bile duct stents
Chief Complaint
-: Bacteremia and Other (Endograft infection)
Vital Signs / Physical Exam
Vital Signs
Vital Signs
Temp Pulse Resp BP Pulse Ox
97.9 F 71 18 147/76 97
05/17/24 08:18 05/17/24 08:18 05/17/24 08:18 05/17/24 08:18 05/17/24 08:18
Physical Exam
Constitutional: No Acute Distress and Comfortable
Cardiovascular: Regular Rate and S1/S2
Pulmonary: Other (decreased BS bases)
Gastrointestinal: Soft, Non Tender and Non Distended
Genito-Urinary: Negative CVA Tenderness
Extremities: Edema (Decreasiing LE edema)
Neurological: AO x 3
Lines: PICC (RUE intact)
Objective Data
Lab Data
Lab Results
05/17/24 04:12
05/17/24 04:12
PT 17.8 Sec (11.4-14.6) H 05/06/24 03:46
INR 1.44 05/06/24 03:46
APTT 37.1 Sec (23.4-35.0) H 05/07/24 05:17
Estimated Creat Clear 61 ml/min 05/17/24 04:12
Lactic Acid 1.4 mmol/L (0.7-2.0) 05/02/24 08:21
Total Bilirubin 0.9 mg/dl (0.2-1.3) 05/17/24 04:12
AST 25 U/L (17-59) 05/17/24 04:12
ALT 14 U/L (0-50) 05/17/24 04:12
Alkaline Phosphatase 167 U/L (38-126) H 05/17/24 04:12
Most recent labs reviewed.
Micro Results:
05/16/24 10:10 C. difficile GDH Antigen & Toxins - Final
Feces/Stool Negative for toxigenic C.difficile
05/02/24 12:54 Blood Culture - Final
Blood/Venous No Growth - Final Report
05/02/24 12:37 Blood Culture - Final
Blood/Venous No Growth - Final Report
05/01/24 20:42 Wound Culture - Final
Abdomen Pseudomonas aeruginosa
Gram Stain - Final
05/01/24 20:42 Anaerobic Culture - Final
Abdomen NO ANAEROBES ISOLATED
04/30/24 08:50 Blood Culture - Final
Blood/Venous No Growth - Final Report
04/29/24 06:51 Blood Culture - Final
Blood/Venous Pseudomonas aeruginosa
Gram Stain - Final
04/28/24 13:34 Blood Culture - Final
Blood/Venous Pseudomonas aeruginosa
Gram Stain - Final
04/30/24 09:18 Blood Culture - Final
Blood/Venous No Growth - Final Report
05/01/24 20:42 Tissue Culture - Final
Tissue Pseudomonas aeruginosa
Gram Stain - Final
05/01/24 20:42 Tissue Culture - Final
Heart Pseudomonas aeruginosa
Gram Stain - Final
04/25/24 15:59 Blood Culture - Final
Blood/Venous Pseudomonas aeruginosa
Gram Stain - Final
04/25/24 15:59 Blood Culture - Final
Blood/Venous Pseudomonas aeruginosa
Gram Stain - Final
04/25/24 17:36 Urine Culture - Final
Urine NO GROWTH
04/26/24 00:04 MRSA Screen - Final
Nose No Methicillin Resistant Staphylococcus aureus isolated.
04/25/24 08:58 Influenza Types A & B (NITIN) - Final
Nasal Swab Negative for Influenza A & B, NAAT
Negative results must be combined with clinical observations
and patient history.
Nucleic Acid Amplification test (NAAT)performed on the
[employer] platform.
Imaging:
04/28/24 CT a/p: Probable enteritis/ileus. Cannot rule out developing small bowel obstruction with questionable transition points as described.
04/28/24 Chest/abd xray: Nonobstructive bowel gas pattern. Mild colonic stool burden.
04/30/24 CT angiogram a/p: Aortobiiliac endograft in place with an interval increase in size of the [place] aneurysm sac around the endograft, interval increase in circumferential wall thickening of the [place] aneurysm, mild retroperitoneal
inflammation, and increased small retroperitoneal lymph nodes. The constellation of findings is suggestive of ACUTE AORTITIS which could be secondary to infection or inflammatory disease. 2. Moderate extrahepatic biliary dilatation with suggestion
of an obstructing 1.3 cm intraluminal mass in the distal common bile duct. Diagnostic possibilities are (1) choledocholithiasis or (2) less likely bile duct cancer. Mild wall thickening and hyperenhancement of the common hepatic and common bile
ducts suggesting CHOLANGITIS. 3. Right upper quadrant liver transplant in place with mild pneumobilia in the liver.
[2024-05-17] MEDS: NOVOLOG FLEXPEN-MODERATE RESISTANCE SC ×2 (09:14→12:11)
--- NOTE | 2024-05-17 09:20 | W.PN.GI.CBS2 ---
Today's Communication / Plan
-
Please see assessment and plan for details.
Assessment / Plan
-
1. Abnormal imaging: With question of intraluminal filling defect on initial CT scan, though on repeat CT scan yesterday this has since resolved. There is extensive pneumobilia noted which is expected in a good sign, implying patency of
choledochojejunostomy. 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
Given resolution of intraluminal filling defect on the CT scan, presence of pneumobilia and essentially normal LFTs we will hold on MRI.
2. Abdominal pain: Likely multifactorial with complicated hospitalization with infected graft and bacteremia, status post surgery, though overall benign exam, tolerating diet, again only minimal elevation of alkaline phosphatase, clinically doubt
significant biliary obstruction adding to his abdominal pain. Repeat CAT scan does show expected postoperative fat stranding and fluid collections, likely the source of his abdominal discomfort. There was plaque noted at the celiac and SMA the
only 50% stenosis, doubt intestinal ischemia.
3. 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 Continue antirejection medications, will follow-up at [facility].
4. Diarrhea: Likely multifactorial, possibly medication related given antibiotics and magnesium. C. difficile is negative. With negative C. difficile we will add Imodium as needed for now.
We will sign off for now, please go back with any further questions.
Subjective
Subjective
Date of Service: May 17, 2024
Patient feeling okay, no new complaints. Still with abdominal discomfort, though was eating well yesterday. Pain is not always related to eating, though is sometimes. Still with some loose stools, though C. difficile was negative. No melena,
vomiting, fever or chills. CT scan results noted, did show pneumobilia, and previously noted possible intraluminal mass was no longer seen. There was extensive expected postoperative fat standing and fluid collections. Vasculature was okay, there
were plaques noted at the SMA and celiac, though only about 50% stenosis.
Objective
Data Reviewed
Laboratory Data:
Laboratory Results
05/17/24 04:12
05/17/24 04:12
Laboratory Results
PT 17.8 Sec (11.4-14.6) H 05/06/24 03:46
INR 1.44 05/06/24 03:46
APTT 37.1 Sec (23.4-35.0) H 05/07/24 05:17
Phosphorus 3.0 mg/dl (2.5-4.5) 05/07/24 05:17
Magnesium 1.7 mg/dl (1.6-2.3) 05/17/24 04:12
Total Bilirubin 0.9 mg/dl (0.2-1.3) 05/17/24 04:12
AST 25 U/L (17-59) 05/17/24 04:12
ALT 14 U/L (0-50) 05/17/24 04:12
Alkaline Phosphatase 167 U/L (38-126) H 05/17/24 04:12
Lipase 37 U/L (23-300) 04/29/24 06:51
Vital Signs and I&O:
Vital Signs
Temp Pulse Resp BP Pulse Ox
97.9 F 71 18 147/76 97
05/17/24 08:18 05/17/24 08:18 05/17/24 08:18 05/17/24 08:18 05/17/24 08:18
I&O
05/16/24 05/17/24 05/18/24
06:59 06:59 06:59
Intake Total 1490 / 1490 720 / 720
Output Total 675 / 675 1525 / 1525
Balance 815 / 815 -805 / -805
Physical Exam
Physical Exam
General: NAD
Abdomen: normal bowel sounds, soft, no tenderness, no masses or bruits, no ascites
[2024-05-17] MEDS: PROTONIX 40 MG PO ×2 (09:21→20:48)
[2024-05-17] MEDS: MAGNESIUM OXIDE 500 MG PO ×2 (09:21→20:48)
[2024-05-17] MEDS: PLAVIX 75 MG PO (09:22)
[2024-05-17] MEDS: PROGRAF 1.5 MG PO ×2 (09:22→20:48)
[2024-05-17] MEDS: JANUVIA 100 MG PO (09:22)
[2024-05-17] MEDS: ZESTRIL 10 MG PO (09:22)
[2024-05-17] MEDS: FARXIGA 10 MG PO (09:22)
[2024-05-17] MEDS: ELIQUIS 5 MG PO ×2 (09:23→20:48)
[2024-05-17] MEDS: TOPROL XL 100 MG PO (09:23)
[2024-05-17] MEDS: GLUCOPHAGE 500 MG PO ×2 (09:23→16:50)
[2024-05-17] MEDS: TOPROL XL 50 MG PO (09:23)
--- NOTE | 2024-05-17 10:36 | W.PN.HOSP.TC ---
Addendum entered and electronically signed by Pool Waldron MD 05/17/24 10:43:
Pleural effusion, left-sided
Left lower lobe has diminished breath sounds
Chest ultrasound ordered
Original Note:
Today's Communication/Plan
-
Assessment / Plan
Assessment / Plan
NAD
Scleral Anicteric
MMM
No JVD
Left lower lobe diminished
RRR, S1/S2
Soft, NT, ND, BS+
Warm, Dry
Bilateral lower extremities with King wrap's
AAOx3
Calm
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
-Followed by vascular surgery now signed off and will require outpatient vascular surgery follow-up
ID following recommended to transition Zosyn to ceftazidime IV 2 g Q 8 through 06/12 and continue Cipro 500 twice daily lifelong
AAA stent graft infection
-Explanted by vascular surgery
-S/p right axillary bifemoral arterial bypass with explantation of infected graft wire retroperitoneal incision with oversew
-[place] partially removed by vascular surgery
-Vascular surgery, repeat CTA completed, await further vascular surgery recommendations
-- Due to volume overload hypoalbuminemia along with edema, voiding IV fluids as this could potentially worsen his volume status
-- Therefore at this time we will give albumin 25%
Acute hypoxemic respiratory failure secondary to deconditioning and atelectasis
Goal SpO2 88 to 92% is known history of COPD
Incentive spirometer 10 times per hour
Wean O2 as tolerated
Out of bed as tolerated with PT
Hypoalbuminemia with evidence of third spacing/volume overload
Will redose albumin 25% and sandwich with IV Lasix 80mg
Wrap bilateral lower extremities
History of liver transplant
Continue immunosuppressive agents
Outpatient follow-up follow-up with transplant hepatology at [facility]
Hypomagnesemia
IV mag sulfate
Liver transplant
Follows with [facility] Hep
Contiune Tac
Abd pain
Could be related to CBD dilation/mass/stone vs suture/staple line
-MRI/MRCP once marija have been removed
-Follow LFT's
-GI asked to re-eval for possible ERCP/EUS Bx
Evaluated by physical therapy recommended SNF
Anticipated Discharge: 24 - 48 hours
Subjective/Interval History
-
Date of Service: May 17, 2024
Seen and examined. No new complaints. No acute overnight events.
Sitting in bedside chair
Family at bedside
Objective Data
-
Labs:
Laboratory Results
05/17/24
04:12
WBC 10.6
Hgb 8.2 L
Hct 25.3 L
Plt Count 375
Sodium 142
Potassium 3.7
Chloride 107
Carbon Dioxide 31 H
BUN 19
Creatinine 1.3
Glucose 109 H
Calcium 8.7
Total Bilirubin 0.9
AST 25
ALT 14
Alkaline Phosphatase 167 H
Vital Signs:
Vital Signs
Temp Pulse Resp BP Pulse Ox
97.9 F 71 18 147/76 97
05/17/24 08:18 05/17/24 08:18 05/17/24 08:18 05/17/24 08:18 05/17/24 08:55
I&O
05/16/24 05/17/24 05/18/24
06:59 06:59 06:59
Intake Total 1490 / 1490 720 / 720
Output Total 675 / 675 1525 / 1525
Balance 815 / 815 -805 / -805
[2024-05-17] MEDS: LASIX 80 MG IV (12:00)
[2024-05-17 12:07] LABS: Glucose - Point of Care 120 mg/dl (70-99)
[2024-05-17] MEDS: FLEXBUMIN 100 IV (13:47)
[2024-05-17 16:37] LABS: Glucose - Point of Care 175 mg/dl (70-99)
[2024-05-17] MEDS: NOVOLOG FLEXPEN-MODERATE RESISTANCE 1 UNITS SC (16:50)
[2024-05-17] MEDS: ADVAIR HFA 45/21 MCG INHALER INH (20:59)
[2024-05-17 21:21] LABS: Glucose - Point of Care 111 mg/dl (70-99)
[2024-05-18] VITALS (8 sets, daily range): BP systolic 123–167; BP diastolic 47–79; BMI 29.6
[2024-05-18] MEDS: STERILE WATER FOR INJECTION 10 ML IV ×3 (05:19→21:49)
[2024-05-18] MEDS: FORTAZ 2000 MG IV ×3 (05:19→21:49)
[2024-05-18] MEDS: TYLENOL 650 MG PO ×2 (05:29→21:47)
[2024-05-18] MEDS: ZOFRAN 4 MG IV ×3 (05:30→21:48)
[2024-05-18] MEDS: NOVOLOG FLEXPEN-MODERATE RESISTANCE SC ×3 (07:34→16:36)
[2024-05-18 07:49] LABS: Glucose - Point of Care 108 mg/dl (70-99)
[2024-05-18] MEDS: SPIRIVA RESPIMAT 2.5 MCG 2 PUFF INH (08:17)
[2024-05-18] MEDS: ADVAIR HFA 45/21 MCG INHALER 2 PUFF INH ×2 (08:17→19:47)
[2024-05-18] MEDS: FARXIGA 10 MG PO (08:44)
[2024-05-18] MEDS: PLAVIX 75 MG PO (08:44)
[2024-05-18] MEDS: PROGRAF 1.5 MG PO ×2 (08:44→21:46)
[2024-05-18] MEDS: PROTONIX 40 MG PO ×2 (08:44→21:44)
[2024-05-18] MEDS: ZESTRIL 10 MG PO (08:44)
[2024-05-18] MEDS: TOPROL XL 100 MG PO (08:44)
[2024-05-18] MEDS: MAGNESIUM OXIDE 500 MG PO ×2 (08:44→21:44)
[2024-05-18] MEDS: GLUCOPHAGE 500 MG PO ×2 (08:44→16:37)
[2024-05-18] MEDS: ELIQUIS 5 MG PO ×2 (08:44→21:45)
[2024-05-18] MEDS: TOPROL XL 50 MG PO (08:45)
[2024-05-18] MEDS: JANUVIA 100 MG PO (08:45)
[2024-05-18 09:20] LABS: Hematocrit 27.3 % (39.0-52.0); Hemoglobin 8.9 g/dL (13.0-18.0); Mean Corp Hgb Conc. 32.6 g/dL (33.0-37.0); Mean Corpuscular Hgb 32.4 pg (27.0-31.0); Mean Corpuscular Volume 99.3 fL (80.0-94.0); Mean Platelet Volume 10.7 fL (7.4-10.4); Platelet Count 360 10^3/uL (130-400); Red Blood Cell Count 2.75 10^6/uL (4.70-6.10); Red Cell Dist. Width 18.7 % (11.5-14.5); White Blood Cell Count 9.4 10^3/uL (4.8-10.8)
[2024-05-18 09:25] LABS: Blood Urea Nitrogen 17 mg/dl (9-20); Calcium 9.1 mg/dl (8.4-10.2); Carbon Dioxide 31 mmol/L (22-30); Chloride 107 mmol/L (98-107); Estimated Creatinine Clearance 59 ml/min; Glucose 121 mg/dl (70-99); Potassium 3.5 mmol/L (3.5-5.1); Sodium 144 mmol/L (135-145); eGFR > 60.00
--- NOTE | 2024-05-18 09:26 | W.PN.ID1 ---
Date of Service
Date of Service: May 18, 2024
Today's Communication
Continue ceftazidime.
Assessment / Plan
# Pseudomonas bacteremia (4 sets)
# AAA stent graft infection with Pseudomonas
- remote hx AAA s/p aortobi-iliac stent graft (at [facility] [place])
- CTA: acute aortitis
# Biliary obstruction with intraluminal mass in CBD
- No longer seen on repeat CTA c/a/p 05/16
- GI following
# Leukocytosis - resolved
# Hx liver transplant; on tacrolimus
#mental status change - resolved off cefepime
# Volume overload
- 05/01 s/p Right axillary bifemoral artery bypass with new ringed [place] graft ; explant of entirety of infected aortic endograft, wide debridement of retroperitoneum.
- 04/30 blood cultures - Neg
- 05/02 blood cultures - Neg
- 05/01 tissue cultures from the OR - Pseudomonas aeruginosa
- Volume overload.
DC'd Zosyn 05/13; abx has high sodium content - > may contribute to volume overload/CHF exacerbation.
- Continue ceftazidime 2g IV q8h through 06/12/24, followed by lifelong suppressive therapy with cipro 500mg po bid.
- Infusion sheet submitted to [facility].
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
Paroxysmal atrial fibrillation
CAD
Hypertension
Neuropathy
COPD
AAA s/p remote hx of aortobi-iliac stent graft (at [facility] [place])
Cholecystectomy
Back surgery
History of multiple bile duct stents
Chief Complaint
-: Bacteremia and Other (Endograft infection)
Subjective / Review of Systems
Still with abd pain.
Vital Signs / Physical Exam
Vital Signs
Vital Signs
Temp Pulse Resp BP Pulse Ox
98.0 F 64 16 156/60 94
05/18/24 07:00 05/18/24 08:23 05/18/24 08:23 05/18/24 07:00 05/18/24 08:23
Physical Exam
Constitutional: No Acute Distress and Comfortable
Cardiovascular: Regular Rate and S1/S2
Pulmonary: Other (decreased BS L base)
Gastrointestinal: Soft, Non Tender and Non Distended
Genito-Urinary: Negative CVA Tenderness
Extremities: Edema (BLE)
Neurological: AO x 3
Lines: PICC (RUE intact)
Objective Data
Lab Data
Lab Results
05/18/24 08:46
05/18/24 08:46
PT 17.8 Sec (11.4-14.6) H 05/06/24 03:46
INR 1.44 05/06/24 03:46
APTT 37.1 Sec (23.4-35.0) H 05/07/24 05:17
Estimated Creat Clear 59 ml/min 05/18/24 08:46
Lactic Acid 1.4 mmol/L (0.7-2.0) 05/02/24 08:21
Total Bilirubin 0.9 mg/dl (0.2-1.3) 05/17/24 04:12
AST 25 U/L (17-59) 05/17/24 04:12
ALT 14 U/L (0-50) 05/17/24 04:12
Alkaline Phosphatase 167 U/L (38-126) H 05/17/24 04:12
Most recent labs reviewed.
Micro Results:
05/16/24 10:10 C. difficile GDH Antigen & Toxins - Final
Feces/Stool Negative for toxigenic C.difficile
05/02/24 12:54 Blood Culture - Final
Blood/Venous No Growth - Final Report
05/02/24 12:37 Blood Culture - Final
Blood/Venous No Growth - Final Report
05/01/24 20:42 Wound Culture - Final
Abdomen Pseudomonas aeruginosa
Gram Stain - Final
05/01/24 20:42 Anaerobic Culture - Final
Abdomen NO ANAEROBES ISOLATED
04/30/24 08:50 Blood Culture - Final
Blood/Venous No Growth - Final Report
04/29/24 06:51 Blood Culture - Final
Blood/Venous Pseudomonas aeruginosa
Gram Stain - Final
04/28/24 13:34 Blood Culture - Final
Blood/Venous Pseudomonas aeruginosa
Gram Stain - Final
04/30/24 09:18 Blood Culture - Final
Blood/Venous No Growth - Final Report
05/01/24 20:42 Tissue Culture - Final
Tissue Pseudomonas aeruginosa
Gram Stain - Final
05/01/24 20:42 Tissue Culture - Final
Heart Pseudomonas aeruginosa
Gram Stain - Final
04/25/24 15:59 Blood Culture - Final
Blood/Venous Pseudomonas aeruginosa
Gram Stain - Final
04/25/24 15:59 Blood Culture - Final
Blood/Venous Pseudomonas aeruginosa
Gram Stain - Final
04/25/24 17:36 Urine Culture - Final
Urine NO GROWTH
04/26/24 00:04 MRSA Screen - Final
Nose No Methicillin Resistant Staphylococcus aureus isolated.
04/25/24 08:58 Influenza Types A & B (NITIN) - Final
Nasal Swab Negative for Influenza A & B, NAAT
Negative results must be combined with clinical observations
and patient history.
Nucleic Acid Amplification test (NAAT)performed on the
[employer] platform.
Imaging:
04/28/24 CT a/p: Probable enteritis/ileus. Cannot rule out developing small bowel obstruction with questionable transition points as described.
04/28/24 Chest/abd xray: Nonobstructive bowel gas pattern. Mild colonic stool burden.
04/30/24 CT angiogram a/p: Aortobiiliac endograft in place with an interval increase in size of the [place] aneurysm sac around the endograft, interval increase in circumferential wall thickening of the [place] aneurysm, mild retroperitoneal
inflammation, and increased small retroperitoneal lymph nodes. The constellation of findings is suggestive of ACUTE AORTITIS which could be secondary to infection or inflammatory disease. 2. Moderate extrahepatic biliary dilatation with suggestion
of an obstructing 1.3 cm intraluminal mass in the distal common bile duct. Diagnostic possibilities are (1) choledocholithiasis or (2) less likely bile duct cancer. Mild wall thickening and hyperenhancement of the common hepatic and common bile
ducts suggesting CHOLANGITIS. 3. Right upper quadrant liver transplant in place with mild pneumobilia in the liver.
[2024-05-18 10:27] LABS: LDH 372 U/L (120-246)
--- NOTE | 2024-05-18 10:30 | PTCARENOTE ---
Per Dr. Waldron neurovascular checks can be discontinued. D/c order pending.
[2024-05-18] MEDS: LASIX 80 MG IV (10:48)
[2024-05-18] MEDS: FLEXBUMIN 100 IV (10:50)
--- NOTE | 2024-05-18 11:18 | W.PN.HOSP.TC ---
Today's Communication/Plan
-
Albumin 25% along with Lasix 80 mg
Wean oxygen as tolerated
Continue IV antibiotics until 06/12/2024 followed by suppressive Cipro 500 mg
IR consult for thoracentesis
Assessment / Plan
Assessment / Plan
NAD
Scleral Anicteric
MMM
No JVD
Left lower lobe diminished
RRR, S1/S2
Soft, NT, ND, BS+
Warm, Dry
Bilateral lower extremities with King wrap's
AAOx3
Calm
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
-Followed by vascular surgery now signed off and will require outpatient vascular surgery follow-up
ID following recommended to transition Zosyn to ceftazidime IV 2 g Q 8 through 06/12 and continue Cipro 500 twice daily lifelong
AAA stent graft infection
-Explanted by vascular surgery
-S/p right axillary bifemoral arterial bypass with explantation of infected graft wire retroperitoneal incision with oversew
-Marija partially removed by vascular surgery
-Vascular surgery, repeat CTA completed, await further vascular surgery recommendations
-- Due to volume overload hypoalbuminemia along with edema, voiding IV fluids as this could potentially worsen his volume status
-- Therefore at this time we will give albumin 25%
Acute hypoxemic respiratory failure secondary to deconditioning and atelectasis
Goal SpO2 88 to 92% is known history of COPD
Incentive spirometer 10 times per hour
Wean O2 as tolerated
Out of bed as tolerated with PT
Pleural effusion
Confirmed on chest ultrasound
IR consult for thoracentesis, labs ordered
Hypoalbuminemia with evidence of third spacing/volume overload
Will redose albumin 25% and sandwich with IV Lasix 80mg
Wrap bilateral lower extremities
History of liver transplant
Continue immunosuppressive agents
Outpatient follow-up follow-up with transplant hepatology at [facility]
Hypomagnesemia
IV mag sulfate
Liver transplant
Follows with [facility] Hep
Contiune Tac
Abd pain
Could be related to CBD dilation/mass/stone vs suture/staple line
-MRI/MRCP once marija have been removed
-Follow LFT's
-GI asked to re-eval for possible ERCP/EUS Bx
Evaluated by physical therapy recommended SNF
Anticipated Discharge: 24 - 48 hours
Subjective/Interval History
-
Date of Service: May 18, 2024
Seen and examined. No new complaints. No acute overnight events.
Objective Data
-
Labs:
Laboratory Results
05/18/24
08:46
WBC 9.4
Hgb 8.9 L
Hct 27.3 L
Plt Count 360
Sodium 144
Potassium 3.5
Chloride 107
Carbon Dioxide 31 H
BUN 17
Creatinine 1.2
Glucose 121 H
Calcium 9.1
Vital Signs:
Vital Signs
Temp Pulse Resp BP Pulse Ox
98.0 F 74 16 136/58 92
05/18/24 07:00 05/18/24 11:10 05/18/24 08:23 05/18/24 11:10 05/18/24 08:45
I&O
05/17/24 05/18/24 05/19/24
06:59 06:59 06:59
Intake Total 720 / 720 960 / 960
Output Total 1525 / 1525 1600 / 1600
Balance -805 / -805 -640 / -640
[2024-05-18 11:44] LABS: Glucose - Point of Care 126 mg/dl (70-99)
[2024-05-18] MEDS: KCL 40 MEQ PO (11:53)
[2024-05-18 16:33] LABS: Glucose - Point of Care 112 mg/dl (70-99)
[2024-05-18] MEDS: MYLICON 80 MG PO (16:59)
[2024-05-18] MEDS: ATARAX 10 MG PO ×2 (16:59→21:47)
[2024-05-18 21:36] LABS: Glucose - Point of Care 149 mg/dl (70-99)
[2024-05-19] VITALS (7 sets, daily range): BP systolic 71–160; BP diastolic 59–77; BMI 29.3
[2024-05-19] MEDS: TYLENOL 650 MG PO (02:46)
[2024-05-19 04:27] LABS: Blood Urea Nitrogen 17 mg/dl (9-20); Calcium 8.8 mg/dl (8.4-10.2); Carbon Dioxide 33 mmol/L (22-30); Chloride 108 mmol/L (98-107); Estimated Creatinine Clearance 59 ml/min; Glucose 105 mg/dl (70-99); Potassium 3.6 mmol/L (3.5-5.1); Sodium 143 mmol/L (135-145); eGFR > 60.00
[2024-05-19 04:35] LABS: Hematocrit 24.6 % (39.0-52.0); Hemoglobin 7.9 g/dL (13.0-18.0); Mean Corp Hgb Conc. 32.1 g/dL (33.0-37.0); Mean Corpuscular Hgb 31.5 pg (27.0-31.0); Mean Platelet Volume 10.1 fL (7.4-10.4); Platelet Count 286 10^3/uL (130-400); Red Blood Cell Count 2.51 10^6/uL (4.70-6.10); Red Cell Dist. Width 18.3 % (11.5-14.5); White Blood Cell Count 9.4 10^3/uL (4.8-10.8)
[2024-05-19] MEDS: ZOFRAN 4 MG IV ×2 (04:57→15:09)
[2024-05-19] MEDS: FORTAZ 2000 MG IV ×3 (05:00→21:27)
[2024-05-19] MEDS: STERILE WATER FOR INJECTION 10 ML IV ×3 (05:00→21:27)
[2024-05-19] MEDS: SPIRIVA RESPIMAT 2.5 MCG 2 PUFF INH (08:03)
[2024-05-19] MEDS: ADVAIR HFA 45/21 MCG INHALER 2 PUFF INH ×2 (08:03→19:58)
[2024-05-19 08:23] LABS: Glucose - Point of Care 107 mg/dl (70-99)
--- NOTE | 2024-05-19 08:36 | W.PN.HOSP.TC ---
Addendum entered and electronically signed by Charles Waldron MD 05/19/24 15:20:
I personally performed a history and physical exam of the patient and discussed management with the resident. I reviewed the resident's note and agree with the documented findings and plan of care HPI/CC.
1. Sepsis/infected abdominal aortic aneurysm stent/Pseudomonas bacteremia -patient is s/p stent removal and aortic bypass. Follow-up CT angio remained stable. Patient remains stable from vascular perspective. Infection disease physician
recommended for patient to finish course of ceftazidime 2 g IV every 8 over with last dose 06/08/2024. Patient will require lifelong oral quinolone therapy after that.
2. Pleural effusion -right-sided on chest ultrasound. Undergoing thoracentesis today.
3. Acute hypoxic respite insufficiency -wean off oxygen as possible.
4. Lower extremity swelling -iatrogenic volume overload, no reported history of heart failure. Maintained on IV Lasix 40 mg daily for now. Will change to oral Lasix 40 mg daily at discharge.
5. Acute blood loss anemia from surgery -hemoglobin has down trended to 8 and remains stable at this point. Continue monitoring
SNF rehab placement in 24-48 hrs
Original Note:
Today's Communication/Plan
-
-Thoracocentesis by IR
-Continue IV Lasix
-No further plan by GI
-Follow CMP and CBC, mg daily
Assessment / Plan
Assessment / Plan
PLAN
#Sepsis secondary to a AAA stent graft infection along Pseudomonas bacteremia
-Continue ceftazidime 2g IV q8h through 06/12/[id number] by lifelong treatment with Cipro 500 mg BID
-ID on board
-Vascular surgery signed off/will need follow up at outpatient setting
#s/p right axillary bifemoral arterial bypass due AAA stent graft infection
-Patient had surgery on 05/01/24
-S/p right axillary bifemoral arterial bypass and removal of infected stent
-Rajesh removed by vascular surgery team on 05/15-05/16
-Follow-up CT angio shows ' aorta being oversewn during graft explantation' and patent bypass grafts( right axillary/femoral bypass and right to left femoral/femoral bypass graft)
-Follow-up with vascular surgery
#Abdominal pain likely multifactorial secondary to having infected graft versus s/p bypass surgery with fluid collections in abdominal area
-Follow CT angio noted no CBD mass and noted intraluminal filling defect resolved comparing to prior CT angio./Extensive pneumobilia considered is a good sign which is implying potential choledochojejunostomy.
-GI did not consider to order abdominal MRI and signed off
-Tolerating his oral taking without abdominal extra pain
-Continue Imodium for his diarrhea-C diff negative
-Follow LFT's
# Lower extremity edema
-Continue IV Lasix
-Compression treatment with King wrapping
-IV albumin was given last time on -can be considered with evidence of third spacing and volume overload
-Follow weight, I/O, SOB, lower extremity swelling
#Acute hypoxemic respiratory failure secondary to deconditioning and atelectasis
-Maintain SpO2 with a goal to keep at 88 to 92% given history of COPD
-Continue incentive spirometer
-Wean O2 as able to
-Out of bed as tolerated with PT
#Pleural effusion
-Confirmed on chest ultrasound on 05/17
-IR did thoracentesis on 05/19
-Follow-up
#CHARISSE
-Resolved
-Creatinine 1.2 this a.m.
#History of liver transplant
-Continue tacrolimus
-Outpatient follow-up follow-up with transplant hepatology at [facility] [place]
Hypomagnesemia
-Resolved
-Replaced as needed
#Diabetes mellitus
-Continue Farxiga 10mg daily and metformin 500 mg BID
-Januvia 100 mg daily
Evaluated by physical therapy recommended SNF--the family was updated by me on 05/16/2024.
Anticipated Discharge: 24 - 48 hours
Subjective/Interval History
-
Date of Service: May 19, 2024
Patient reports shortness of breath and abdominal pain. He denies chest pain or back pain.
Objective Data
-
Labs:
Laboratory Results
05/19/24
04:05
WBC 9.4
Hgb 7.9 L
Hct 24.6 L
Plt Count 286 D
Sodium 143
Potassium 3.6
Chloride 108 H
Carbon Dioxide 33 H
BUN 17
Creatinine 1.2
Glucose 105 H
Calcium 8.8
Vital Signs:
Vital Signs
Temp Pulse Resp BP Pulse Ox
98.4 F 65 20 160/59 99
05/19/24 08:12 05/19/24 08:12 05/19/24 08:12 05/19/24 08:12 05/19/24 08:12
I&O
05/18/24 05/19/24 05/20/24
06:59 06:59 06:59
Intake Total 960 / 960 1080 / 1080
Output Total 1600 / 1600 1715 / 1715
Balance -640 / -640 -635 / -635
Review of Systems
-
History Source: Patient
EENT: Reports No Symptoms Reported
Respiratory: Reports Other (shortness of breath)
Cardiac: Reports No Symptoms
Abdomen/GI: Reports Abdominal Pain
Genitourinary: Reports No Symptoms
Musculoskeletal: Reports No Symptoms
Skin: Reports No Symptoms
Neuro: Reports No Symptoms
Physical Exam
-
General: Well Developed, Well Nourished, Appears Chronically Ill and Obese
HEENT: Normocephalic, Atraumatic and Oxygen (On 2 L nasal Oxygen)
Respiratory: Decreased Breath Sounds (on left lung base )
Cardiac: Regular Rhythm and S1/S2
GI: Soft, Nontender (mild tender on mid abdominal area) and Nondistended
Musculoskeletal: No Cyanosis, No Edema, Edema, Right Lower Extrem and Edema, Left Lower Extrem
Skin: Warm and IV Access / Catheter Site (Right PICC line)
Neuro: Awake, Alert, Oriented and AO x 3
[2024-05-19] MEDS: NOVOLOG FLEXPEN-MODERATE RESISTANCE SC ×3 (08:48→17:34)
[2024-05-19] MEDS: MAGNESIUM OXIDE PO (09:09)
[2024-05-19] MEDS: TOPROL XL 100 MG PO (09:12)
[2024-05-19] MEDS: FARXIGA 10 MG PO (09:12)
[2024-05-19] MEDS: TOPROL XL 50 MG PO (09:13)
[2024-05-19] MEDS: ZESTRIL 10 MG PO (09:13)
[2024-05-19] MEDS: GLUCOPHAGE 500 MG PO ×2 (09:13→17:35)
[2024-05-19] MEDS: JANUVIA 100 MG PO (09:13)
[2024-05-19] MEDS: ELIQUIS 5 MG PO ×2 (09:13→21:27)
[2024-05-19] MEDS: PROTONIX 40 MG PO ×2 (09:14→21:27)
[2024-05-19] MEDS: PROGRAF 1.5 MG PO ×2 (09:14→21:27)
[2024-05-19] MEDS: PLAVIX 75 MG PO (09:14)
--- NOTE | 2024-05-19 10:39 | PN.DE.MGMTRT ---
Insulin Management
- -
05/19/2024: Diabetes Management follow up
Patient admitted 04/25 with fever/chills decreased oral intake and diarrhea. PMH including: Paroxysmal A-Fib, CAD, PVCs, alcoholic cirrhosis, hepatitis C s/p liver transplant in 2006 (on immunosuppression), multiple bile duct stents, AAA s/p repair
in 2004, HTN, HLD, COPD chronic tobacco use and T2DM. Prior to admission was taking Metformin 500 mg daily. On admission A1C 7.5%, Cr 1.1, eGFR >60
CT A/P--> enteritis/ileus. Admission blood cultures + Pseudomonas. CT angio showed significant concern for infected aortic endograft and questionable distal common bile duct stone vs mass vs sludge. Pt underwent Right axillary bifemoral artery
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
Pt awake, restless no family at bedside, Pt is unable to discuss diabetes care plan.
POD # 17 s/p Right axillary bifemoral artery bypass and explant of entirety of infected aortic endograft.
Glucose stable and in range, 05/18 premeal glucose was 108 to 126. Required no corrective insulin. Tolerating diet. Cr 1.2, eGFR >60
Will continue current regimen Farxiga 10mg daily, Januvia 100 mg daily and metformin 500 mg BID with moderate corrective.
Discussed with nurse. Will cont to follow
Diabetes History
- -
Type of Diabetes: 2
Pre-Admission Diabetes Regimen
05/19/24
04:05
Creatinine 1.2
Lab Results
Hemoglobin A1c 7.5 % (4.0-5.6) H 04/29/24 06:51
Insulin Pump Settings
IP Diabetes Regimen
05/18/24 05/18/24 05/18/24
11:43 16:31 21:33
Glucose
POC Glucose 126 H 112 H 149 H
05/19/24 05/19/24
04:05 08:16
Glucose 105 H
POC Glucose 107 H
Meal type: Lunch
Amount consumed: 40%
Patient Education
[2024-05-19 12:24] LABS: Glucose - Point of Care 130 mg/dl (70-99)
--- NOTE | 2024-05-19 13:54 | W.PN.ID1 ---
Date of Service
Date of Service: May 19, 2024
Today's Communication
Continue ceftazidime.
Assessment / Plan
# Pseudomonas bacteremia (4 sets)
# AAA stent graft infection with Pseudomonas
- remote hx AAA s/p aortobi-iliac stent graft (at [facility])
- CTA: acute aortitis
# Biliary obstruction with intraluminal mass in CBD
- No longer seen on repeat CTA c/a/p 05/16
- GI following
# Leukocytosis - resolved
# Hx liver transplant; on tacrolimus
#mental status change - resolved off cefepime
# Volume overload
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
- 04/30 blood cultures - Neg
- 05/02 blood cultures - Neg
- 05/01 tissue cultures from the OR - Pseudomonas aeruginosa
- Volume overload.
DC'd Zosyn 05/13; abx has high sodium content - > may contribute to volume overload/CHF exacerbation.
- Continue ceftazidime 2g IV q8h through 06/12/24, followed by lifelong suppressive therapy with cipro 500mg po bid.
- Infusion sheet submitted to [facility] [facility] [facility].
# Conditions [employer]
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
Paroxysmal atrial fibrillation
CAD
Hypertension
Neuropathy
COPD
AAA s/p remote hx of aortobi-iliac stent graft (at [facility])
Cholecystectomy
Back surgery
History of multiple bile duct stents
Chief Complaint
-: Bacteremia and Other (Endograft infection)
Subjective / Review of Systems
Feels same
Vital Signs / Physical Exam
Vital Signs
Vital Signs
Temp Pulse Resp BP Pulse Ox
98 F 71 18 156/70 98
05/19/24 13:00 05/19/24 13:00 05/19/24 13:00 05/19/24 13:00 05/19/24 13:00
Physical Exam
Constitutional: No Acute Distress
Cardiovascular: Regular Rate and S1/S2
Pulmonary: Other (decreased BS L base)
Gastrointestinal: Soft, Non Tender and Non Distended
Genito-Urinary: Negative CVA Tenderness
Extremities: Edema (BLE)
Neurological: AO x 3
Lines: PICC (RUE intact)
Objective Data
Lab Data
Lab Results
05/19/24 04:05
05/19/24 04:05
PT 17.8 Sec (11.4-14.6) H 05/06/24 03:46
INR 1.44 05/06/24 03:46
APTT 37.1 Sec (23.4-35.0) H 05/07/24 05:17
Estimated Creat Clear 59 ml/min 05/19/24 04:05
Lactic Acid 1.4 mmol/L (0.7-2.0) 05/02/24 08:21
Total Bilirubin 0.9 mg/dl (0.2-1.3) 05/17/24 04:12
AST 25 U/L (17-59) 05/17/24 04:12
ALT 14 U/L (0-50) 05/17/24 04:12
Alkaline Phosphatase 167 U/L (38-126) H 05/17/24 04:12
Most recent labs reviewed.
Micro Results:
05/16/24 10:10 C. difficile GDH Antigen & Toxins - Final
Feces/Stool Negative for toxigenic C.difficile
05/02/24 12:54 Blood Culture - Final
Blood/Venous No Growth - Final Report
05/02/24 12:37 Blood Culture - Final
Blood/Venous No Growth - Final Report
05/01/24 20:42 Wound Culture - Final
Abdomen Pseudomonas aeruginosa
Gram Stain - Final
05/01/24 20:42 Anaerobic Culture - Final
Abdomen NO ANAEROBES ISOLATED
04/30/24 08:50 Blood Culture - Final
Blood/Venous No Growth - Final Report
04/29/24 06:51 Blood Culture - Final
Blood/Venous Pseudomonas aeruginosa
Gram Stain - Final
04/28/24 13:34 Blood Culture - Final
Blood/Venous Pseudomonas aeruginosa
Gram Stain - Final
04/30/24 09:18 Blood Culture - Final
Blood/Venous No Growth - Final Report
05/01/24 20:42 Tissue Culture - Final
Tissue Pseudomonas aeruginosa
Gram Stain - Final
05/01/24 20:42 Tissue Culture - Final
Heart Pseudomonas aeruginosa
Gram Stain - Final
04/25/24 15:59 Blood Culture - Final
Blood/Venous Pseudomonas aeruginosa
Gram Stain - Final
04/25/24 15:59 Blood Culture - Final
Blood/Venous Pseudomonas aeruginosa
Gram Stain - Final
04/25/24 17:36 Urine Culture - Final
Urine NO GROWTH
04/26/24 00:04 MRSA Screen - Final
Nose No Methicillin Resistant Staphylococcus aureus isolated.
04/25/24 08:58 Influenza Types A & B (NITIN) - Final
Nasal Swab Negative for Influenza A & B, NAAT
Negative results must be combined with clinical observations
and patient history.
Nucleic Acid Amplification test (NAAT)performed on the
[employer] platform.
Imaging:
04/28/24 CT a/p: Probable enteritis/ileus. Cannot rule out developing small bowel obstruction with questionable transition points as described.
04/28/24 Chest/abd xray: Nonobstructive bowel gas pattern. Mild colonic stool burden.
04/30/24 CT angiogram a/p: Aortobiiliac endograft in place with an interval increase in size of the [place] aneurysm sac around the endograft, interval increase in circumferential wall thickening of the [place] aneurysm, mild retroperitoneal
inflammation, and increased small retroperitoneal lymph nodes. The constellation of findings is suggestive of ACUTE AORTITIS which could be secondary to infection or inflammatory disease. 2. Moderate extrahepatic biliary dilatation with suggestion
of an obstructing 1.3 cm intraluminal mass in the distal common bile duct. Diagnostic possibilities are (1) choledocholithiasis or (2) less likely bile duct cancer. Mild wall thickening and hyperenhancement of the common hepatic and common bile
ducts suggesting CHOLANGITIS. 3. Right upper quadrant liver transplant in place with mild pneumobilia in the liver.
[2024-05-19] MEDS: LASIX 40 MG IV (14:59)
--- NOTE | 2024-05-19 16:08 | CM ---
Chart reviewed. Care ongoing.
Patient will cont IV abx through 06/13. Plan is for patient to d/c to [facility] for skilled rehab.
Per hospitalist, poss d/c tomorrow but CM will confirm and follow up w/ Kenna/[facility] to confirm bed availability
CM inquired about a bed tomorrow, [facility] will review and let CM know
Plan: [facility] accepted
[2024-05-19 17:29] LABS: Glucose - Point of Care 131 mg/dl (70-99)
[2024-05-19 21:18] LABS: Glucose - Point of Care 108 mg/dl (70-99)
[2024-05-19] MEDS: MAGNESIUM OXIDE 500 MG PO (21:27)
[2024-05-20] MEDS: ATARAX 10 MG PO ×2 (01:22→23:16)
[2024-05-20 03:00] VITALS: BP 112/51
[2024-05-20 04:41] LABS: Hematocrit 25.8 % (39.0-52.0); Hemoglobin 8.3 g/dL (13.0-18.0); Mean Corp Hgb Conc. 32.2 g/dL (33.0-37.0); Mean Corpuscular Hgb 31.9 pg (27.0-31.0); Mean Corpuscular Volume 99.2 fL (80.0-94.0); Mean Platelet Volume 10.7 fL (7.4-10.4); Platelet Count 304 10^3/uL (130-400); Red Cell Dist. Width 18.3 % (11.5-14.5); White Blood Cell Count 8.3 10^3/uL (4.8-10.8)
[2024-05-20 04:52] LABS: ALT (SGPT) 12 U/L (0-50); AST (SGOT) 23 U/L (17-59); Albumin 2.8 g/dl (3.5-5.0); Alkaline Phosphatase 147 U/L (38-126); Blood Urea Nitrogen 16 mg/dl (9-20); Calcium 8.7 mg/dl (8.4-10.2); Carbon Dioxide 30 mmol/L (22-30); Chloride 107 mmol/L (98-107); Estimated Creatinine Clearance 55 ml/min; Glucose 103 mg/dl (70-99); Magnesium 1.2 mg/dl (1.6-2.3); Potassium 3.8 mmol/L (3.5-5.1); Sodium 143 mmol/L (135-145); Total Protein 5.2 g/dl (6.3-8.2); eGFR 57.65
[2024-05-20] MEDS: STERILE WATER FOR INJECTION 10 ML IV ×3 (05:23→22:40)
[2024-05-20] MEDS: FORTAZ 2000 MG IV ×3 (05:23→22:40)
--- NOTE | 2024-05-20 06:58 | W.PN.HOSP.TC ---
Today's Communication/Plan
-
-Continue diuresis with IV lasix
-Mg replaced
Assessment / Plan
Assessment / Plan
PLAN
#Sepsis secondary to a AAA stent graft infection along Pseudomonas bacteremia
-Continue ceftazidime 2g IV q8h through 06/12/2424-[id number] by lifelong treatment with Cipro 500 mg BID
-ID on board
-Vascular surgery signed off/will need follow up at outpatient setting
#s/p right axillary bifemoral arterial bypass due AAA stent graft infection
-Patient had surgery on 05/01/24
-S/p right axillary bifemoral arterial bypass and removal of infected stent
-[place] removed by vascular surgery team on 05/15-05/16
-Follow-up CT angio shows ' aorta being oversewn during graft explantation' and patent bypass grafts( right axillary/femoral bypass and right to left femoral/femoral bypass graft)
-Follow-up with vascular surgery
#Abdominal pain likely multifactorial secondary to having infected graft versus s/p bypass surgery with fluid collections in abdominal area
-Follow CT angio noted no CBD mass and noted intraluminal filling defect resolved comparing to prior CT angio./Extensive pneumobilia considered is a good sign which is implying potential choledochojejunostomy.
-GI did not consider to order abdominal MRI and signed off
-Tolerating his oral taking without abdominal extra pain
-Continue Imodium for his diarrhea-C diff negative
-Follow LFT's
# Lower extremity edema
-Continue IV Lasix
-Compression treatment with King wrapping
-IV albumin was given last time on -can be considered with evidence of third spacing and volume overload
-Follow weight, I/O, SOB, lower extremity swelling
#Acute hypoxemic respiratory failure secondary to deconditioning and atelectasis
-Maintain SpO2 with a goal to keep at 88 to 92% given history of COPD
-Continue incentive spirometer
-Wean O2 as able to
-Out of bed as tolerated with PT
#Pleural effusion
-Confirmed on chest ultrasound on 05/17
-IR cancelled thoracentesis on 05/19 due finding volume insufficient for ultrasound-guided thoracentesis.
-Follow-up
#CHARISSE
-Resolved
-Creatinine 1.3 this a.m.
#History of liver transplant
-Continue tacrolimus
-Outpatient follow-up follow-up with transplant hepatology at [facility]
Hypomagnesemia
-MG 1.2
-Replaced with 2 gr
#Diabetes mellitus
-Continue Farxiga 10mg daily and metformin 500 mg BID
-Januvia 100 mg daily
DVT Prop
-Eliquis
Evaluated by physical therapy recommended SNF--the family was updated by me on 05/16/2024.
Anticipated Discharge: 24 - 48 hours
Subjective/Interval History
-
Date of Service: May 20, 2024
Patient reports mild shortness of breath and mild abdominal pain. He denies chest pain or back pain.
Objective Data
-
Labs:
Laboratory Results
05/20/24
04:06
WBC 8.3
Hgb 8.3 L
Hct 25.8 L
Plt Count 304
Sodium 143
Potassium 3.8
Chloride 107
Carbon Dioxide 30
BUN 16
Creatinine 1.3
Glucose 103 H
Calcium 8.7
Total Bilirubin 1.0
AST 23
ALT 12
Alkaline Phosphatase 147 H
Vital Signs:
Vital Signs
Temp Pulse Resp BP Pulse Ox
98.0 F 66 18 112/51 94
05/20/24 03:00 05/20/24 03:00 05/20/24 03:00 05/20/24 03:00 05/20/24 03:00
I&O
05/18/24 05/19/24 05/20/24
06:59 06:59 06:59
Intake Total 960 / 960 1080 / 1080 980 / 980
Output Total 1600 / 1600 1715 / 1715 1000 / 1000
Balance -640 / -640 -635 / -635 - /
Review of Systems
-
History Source: Patient
Constitutional: Reports No Symptoms
EENT: Reports No Symptoms Reported
Respiratory: Reports Other (shortness of breath)
Cardiac: Reports No Symptoms
Abdomen/GI: Reports Abdominal Pain
Genitourinary: Reports No Symptoms
Musculoskeletal: Reports No Symptoms
Skin: Reports No Symptoms
Neuro: Reports No Symptoms
Physical Exam
-
General: Well Developed, Well Nourished, Appears Chronically Ill and Obese
HEENT: Normocephalic and Atraumatic
Respiratory: Decreased Breath Sounds
Cardiac: Regular Rhythm and S1/S2
GI: Soft, Nontender (mild tender on mid abdominal area) and Nondistended
Musculoskeletal: No Clubbing, No Cyanosis, Edema, Right Lower Extrem and Edema, Left Lower Extrem
Skin: Warm
Neuro: Awake, Alert, Oriented and AO x 3
Psych: Calm
[2024-05-20 07:36] LABS: Glucose - Point of Care 108 mg/dl (70-99)
[2024-05-20 07:45] VITALS: BP 135/64
--- NOTE | 2024-05-20 08:10 | PN.DE.MGMTRT ---
Insulin Management
- -
05/20/2024: Diabetes Management follow up
Patient admitted 04/25 with fever/chills decreased oral intake and diarrhea. PMH including: Paroxysmal A-Fib, CAD, PVCs, alcoholic cirrhosis, hepatitis C s/p liver transplant in 2006 (on immunosuppression), multiple bile duct stents, AAA s/p repair
in 2004, HTN, HLD, COPD chronic tobacco use and T2DM. Prior to admission was taking Metformin 500 mg daily. On admission A1C 7.5%, Cr 1.1, eGFR >60
CT A/P--> enteritis/ileus. Admission blood cultures + Pseudomonas. CT angio showed significant concern for infected aortic endograft and questionable distal common bile duct stone vs mass vs sludge. Pt underwent Right axillary bifemoral artery
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
Pt awake, restless no family at bedside, Pt is unable to discuss diabetes care plan.
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
Glucose stable and in range, 05/19 premeal glucose was 107 to 131. Required no corrective insulin. Tolerating diet. Cr 1.3, eGFR 57.65.
Will continue current regimen Farxiga 10mg daily, Januvia 100 mg daily and metformin 500 mg BID with moderate corrective.
Discussed with nurse. Will cont to follow
Diabetes History
- -
Type of Diabetes: 2
Pre-Admission Diabetes Regimen
05/20/24
04:06
Creatinine 1.3
Lab Results
Hemoglobin A1c 7.5 % (4.0-5.6) H 04/29/24 06:51
Insulin Pump Settings
IP Diabetes Regimen
05/19/24 05/19/24 05/19/24
08:16 12:13 17:22
Glucose
POC Glucose 107 H 130 H 131 H
05/19/24 05/20/24 05/20/24
21:17 04:06 07:34
Glucose 103 H
POC Glucose 108 H 108 H
Meal type: Dinner
Meal type: Lunch
Meal type: Breakfast
Amount consumed: 100%
Amount consumed: 100%
Amount consumed: 100%
Patient Education
[2024-05-20] MEDS: MAGNESIUM SULFATE 50 IV (08:15)
[2024-05-20] MEDS: TOPROL XL 100 MG PO (08:15)
[2024-05-20] MEDS: FLUSH (NSS) 1 FLUSH IV ×3 (08:16→17:15)
[2024-05-20] MEDS: NOVOLOG FLEXPEN-MODERATE RESISTANCE SC ×3 (08:17→17:04)
[2024-05-20] MEDS: TOPROL XL 50 MG PO (08:17)
[2024-05-20] MEDS: PROTONIX 40 MG PO ×2 (08:17→20:20)
[2024-05-20] MEDS: ZESTRIL 10 MG PO (08:18)
[2024-05-20] MEDS: FARXIGA 10 MG PO (08:18)
[2024-05-20] MEDS: PLAVIX 75 MG PO (08:18)
[2024-05-20] MEDS: PROGRAF 1.5 MG PO ×2 (08:18→20:20)
[2024-05-20] MEDS: MAGNESIUM OXIDE 500 MG PO ×2 (08:19→20:20)
[2024-05-20] MEDS: LASIX 40 MG IV ×2 (08:19→17:14)
[2024-05-20] MEDS: JANUVIA 100 MG PO (08:19)
[2024-05-20] MEDS: ELIQUIS 5 MG PO ×2 (08:19→20:20)
[2024-05-20] MEDS: GLUCOPHAGE 500 MG PO ×2 (08:19→17:14)
[2024-05-20] MEDS: ADVAIR HFA 45/21 MCG INHALER 2 PUFF INH ×2 (08:57→20:08)
[2024-05-20] MEDS: SPIRIVA RESPIMAT 2.5 MCG 2 PUFF INH (08:57)
--- NOTE | 2024-05-20 10:27 | CM ---
Reviewed the chart notes and spoke with the patient at the bedside. IMM reviewed. Updtd CM referral sent via [facility] to SNFs. CM continues to be available to patient/family and is monitoring medical plan for needs at discharge.
Plan: Discharge to SNF/rehab once medically stable and a bed secured. No precert required.
[2024-05-20 11:10] VITALS: BP 147/74
[2024-05-20 12:09] LABS: Glucose - Point of Care 145 mg/dl (70-99)
--- NOTE | 2024-05-20 13:35 | W.PN.UPDATE ---
Update Note
Progress Note Update
I personally performed a history and physical exam of the patient and discussed management with the resident. I reviewed the resident's note and agree with the documented findings and plan of care HPI/CC.
1. Sepsis/infected abdominal aortic aneurysm stent/Pseudomonas bacteremia -patient is s/p stent removal and aortic bypass. Follow-up CT angio remained stable. Patient remains stable from vascular perspective. Infection disease physician
recommended for patient to finish course of ceftazidime 2 g IV every 8 over with last dose 06/08/2024. Patient will require lifelong oral quinolone therapy after that.
2. Pleural effusion -right-sided on chest ultrasound. Not amenable to thoracentesis.
3. Acute hypoxic respite insufficiency -wean off oxygen as possible. Remains on 2 L oxygen through nasal cannula
4. Lower extremity swelling -iatrogenic volume overload, no reported history of heart failure. Patient had suboptimal response to IV diuretics, increasing dose to 40 mg twice daily
5. Acute blood loss anemia from surgery -hemoglobin has down trended to 8 and remains stable at this point. Continue monitoring
6. Hypomagnesemia -replace 2g today
Considering possible discharge early as tomorrow to SNF
[2024-05-20 15:05] VITALS: BP 119/49
--- NOTE | 2024-05-20 16:13 | PTCARENOTE ---
Pt AAO x3, irritable at times. POLANCO; OOB to chair with assist x1/walker, nubia well, moves slowly. VSS. Telemetry:NSR with PAC's/first degree AVB. Pt has +2- edema BLE/+3 pedal edema. On nc 2 lpm- pulse ox 98%; pt with (+) LONGORIA; denies SOB. Abd
obese, soft, nubia PO well. Voids in urinal; occ spills urinal at times. Resting in bed at present; SCD's on BLE/legs elevated on pillow. Will continue to monitor.
[2024-05-20 16:47] LABS: Glucose - Point of Care 121 mg/dl (70-99)
[2024-05-20 19:30] VITALS: BP 131/54
[2024-05-20 21:46] LABS: Glucose - Point of Care 115 mg/dl (70-99)
[2024-05-20] MEDS: TYLENOL 650 MG PO (23:16)
[2024-05-20 23:30] VITALS: BP 150/67
[2024-05-21 03:23] VITALS: BP 154/64
[2024-05-21] MEDS: STERILE WATER FOR INJECTION 10 ML IV ×2 (06:06→14:39)
[2024-05-21] MEDS: FLUSH (NSS) 2 FLUSH IV (06:06)
[2024-05-21] MEDS: FORTAZ 2000 MG IV ×2 (06:06→14:39)
[2024-05-21 06:30] LABS: Hematocrit 27.3 % (39.0-52.0); Hemoglobin 8.8 g/dL (13.0-18.0); Mean Corp Hgb Conc. 32.2 g/dL (33.0-37.0); Mean Corpuscular Hgb 31.7 pg (27.0-31.0); Mean Corpuscular Volume 98.2 fL (80.0-94.0); Mean Platelet Volume 10.9 fL (7.4-10.4); Platelet Count 302 10^3/uL (130-400); Red Blood Cell Count 2.78 10^6/uL (4.70-6.10); Red Cell Dist. Width 18.2 % (11.5-14.5); White Blood Cell Count 7.2 10^3/uL (4.8-10.8)
[2024-05-21 06:54] LABS: ALT (SGPT) 12 U/L (0-50); AST (SGOT) 24 U/L (17-59); Alkaline Phosphatase 152 U/L (38-126); Blood Urea Nitrogen 16 mg/dl (9-20); Calcium 8.7 mg/dl (8.4-10.2); Carbon Dioxide 33 mmol/L (22-30); Chloride 106 mmol/L (98-107); Estimated Creatinine Clearance 59 ml/min; Glucose 87 mg/dl (70-99); Magnesium 1.5 mg/dl (1.6-2.3); Potassium 3.7 mmol/L (3.5-5.1); Sodium 143 mmol/L (135-145); Total Protein 5.6 g/dl (6.3-8.2); eGFR > 60.00
--- NOTE | 2024-05-21 07:05 | W.PN.HOSP.TC ---
Today's Communication/Plan
-
-Discharge today to [facility]
-Will continue his IV antibiotics through 06/12/2024 and following will start lifelong Cipro 500 mg twice daily
Assessment / Plan
Assessment / Plan
PLAN
#Sepsis secondary to a AAA stent graft infection along Pseudomonas bacteremia
-Continue ceftazidime 2g IV q8h through 06/12/2447-[id number] by lifelong treatment with Cipro 500 mg BID
-ID on board
#s/p right axillary bifemoral arterial bypass due AAA stent graft infection
-Patient had surgery on 05/01/24
-S/p right axillary bifemoral arterial bypass and removal of infected stent
-[place] removed by vascular surgery team on 05/15-05/16
-Follow-up CT angio shows ' aorta being oversewn during graft explantation' and patent bypass grafts( right axillary/femoral bypass and right to left femoral/femoral bypass graft)
-Vascular surgery signed off/will need follow up at outpatient setting
#Abdominal pain likely multifactorial secondary to having infected graft versus s/p bypass surgery with fluid collections in abdominal area
-Follow CT angio noted no CBD mass and noted intraluminal filling defect resolved comparing to prior CT angio./Extensive pneumobilia considered is a good sign which is implying potential choledochojejunostomy.
-GI did not consider to order abdominal MRI and signed off
-Tolerating his oral taking without abdominal extra pain
-Continue Imodium for his diarrhea-improved -C diff negative
-Follow LFT's
# Lower extremity edema
-Continue IV Lasix
-Compression treatment with [place] wrapping
-IV albumin was given last time on -can be considered with evidence of third spacing and volume overload
-Follow weight, I/O, SOB, lower extremity swelling
#Acute hypoxemic respiratory failure secondary to deconditioning and atelectasis
-Maintain SpO2 with a goal to keep at 88 to 92% given history of COPD
-Continue incentive spirometer
-Wean O2 as able to
-Out of bed as tolerated with PT
#Pleural effusion
-Confirmed on chest ultrasound on 05/17
-IR cancelled thoracentesis on 05/19 due finding volume insufficient for ultrasound-guided thoracentesis.
-Follow-up
#CHARISSE
-Resolved
-Creatinine 1.2 this a.m.
#History of liver transplant
-Continue tacrolimus
-Outpatient follow-up follow-up with transplant hepatology at [facility]
Hypomagnesemia
-MG 1.5
-Replaced with 2 gr
#Diabetes mellitus
-Continue Farxiga 10mg daily and metformin 500 mg BID
-Januvia 100 mg daily
DVT Prop
-Eliquis
Evaluated by physical therapy recommended SNF
Anticipated Discharge: Today
Subjective/Interval History
-
Date of Service: May 21, 2024
Patient reports ongoing abdominal discomfort. He is tolerating his oral taking without abdominal pain. Denies chest pain and back pain and reports feels his shortness of breath is his baseline. He was able to wean off supplemental oxygen this
morning.
Objective Data
-
Labs:
Laboratory Results
05/21/24
05:58
WBC 7.2
Hgb 8.8 L
Hct 27.3 L
Plt Count 302
Sodium 143
Potassium 3.7
Chloride 106
Carbon Dioxide 33 H
BUN 16
Creatinine 1.2
Glucose 87
Calcium 8.7
Total Bilirubin 1.0
AST 24
ALT 12
Alkaline Phosphatase 152 H
Vital Signs:
Vital Signs
Temp Pulse Resp BP Pulse Ox
98 F 70 16 154/64 97
05/21/24 03:23 05/21/24 03:23 05/21/24 03:23 05/21/24 03:23 05/21/24 03:23
I&O
05/20/24 05/21/24 05/22/24
06:59 06:59 06:59
Intake Total 980 / 980 710 / 710
Output Total 1000 / 1000 1625 / 1625
Balance -20 / -20 -915 / -915
Review of Systems
-
History Source: Patient
EENT: Reports No Symptoms Reported
Respiratory: Reports Other (shortness of breath)
Cardiac: Reports No Symptoms
Abdomen/GI: Reports Abdominal Pain
Genitourinary: Reports No Symptoms
Musculoskeletal: Reports No Symptoms
Skin: Reports No Symptoms
Neuro: Reports No Symptoms
Physical Exam
-
General: Well Developed, Well Nourished, Appears Chronically Ill and Obese
HEENT: Normocephalic and Atraumatic
Respiratory: Decreased Breath Sounds
Cardiac: Regular Rhythm and S1/S2
GI: Soft, Nondistended and Tender (mild tender on mid abdominal area)
Musculoskeletal: No Clubbing, No Cyanosis, Edema, Right Lower Extrem and Edema, Left Lower Extrem
Skin: Warm
Neuro: Awake, Alert, Oriented, AO x 3 and Nonfocal/Grossly Intact
[2024-05-21 07:32] LABS: Glucose - Point of Care 87 mg/dl (70-99)
[2024-05-21] MEDS: NOVOLOG FLEXPEN-MODERATE RESISTANCE SC ×2 (07:41→12:55)
[2024-05-21] MEDS: MAGNESIUM SULFATE 50 IV (07:42)
[2024-05-21] MEDS: PROTONIX 40 MG PO (07:43)
[2024-05-21] MEDS: MAGNESIUM OXIDE 500 MG PO (07:43)
[2024-05-21] MEDS: TOPROL XL 50 MG PO (07:43)
[2024-05-21] MEDS: FARXIGA 10 MG PO (07:43)
[2024-05-21] MEDS: TOPROL XL 100 MG PO (07:44)
[2024-05-21] MEDS: ZESTRIL 10 MG PO (07:44)
[2024-05-21] MEDS: JANUVIA 100 MG PO (07:44)
[2024-05-21] MEDS: GLUCOPHAGE 500 MG PO (07:44)
[2024-05-21] MEDS: ELIQUIS 5 MG PO (07:44)
[2024-05-21] MEDS: PLAVIX 75 MG PO (07:45)
[2024-05-21] MEDS: PROGRAF 1.5 MG PO (07:45)
[2024-05-21] MEDS: LASIX 40 MG IV ×2 (07:48→16:08)
[2024-05-21] MEDS: FLUSH (NSS) 1 FLUSH IV ×3 (07:49→16:08)
[2024-05-21 08:16] VITALS: BP 165/77
--- NOTE | 2024-05-21 08:47 | PN.DE.MGMTRT ---
Insulin Management
- -
05/21/2024: Diabetes Management follow up
Patient admitted 04/25 with fever/chills decreased oral intake and diarrhea. PMH including: Paroxysmal A-Fib, CAD, PVCs, alcoholic cirrhosis, hepatitis C s/p liver transplant in 2006 (on immunosuppression), multiple bile duct stents, AAA s/p repair
in 2004, HTN, HLD, COPD chronic tobacco use and T2DM. Prior to admission was taking Metformin 500 mg daily. On admission A1C 7.5%, Cr 1.1, eGFR >60
CT A/P--> enteritis/ileus. Admission blood cultures + Pseudomonas. CT angio showed significant concern for infected aortic endograft and questionable distal common bile duct stone vs mass vs sludge. Pt underwent Right axillary bifemoral artery
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
Pt awake, oob in chair, restless, no family at bedside, Pt is unable to discuss diabetes care plan.
POD # 19 s/p Right axillary bifemoral artery bypass and explant of entirety of infected aortic endograft.
Glucose stable and in range, 05/20 premeal glucose was 108 to 145. Required no corrective insulin. Tolerating diet. Cr 1.2, eGFR >60.
Will continue current regimen Farxiga 10mg daily, Januvia 100 mg daily and metformin 500 mg BID with moderate corrective.
Discussed with nurse. Will cont to follow
Diabetes History
- -
Type of Diabetes: 2
Pre-Admission Diabetes Regimen
05/21/24
05:58
Creatinine 1.2
Lab Results
Hemoglobin A1c 7.5 % (4.0-5.6) H 04/29/24 06:51
Insulin Pump Settings
IP Diabetes Regimen
05/20/24 05/20/24 05/20/24
11:46 16:44 21:45
Glucose
POC Glucose 145 H 121 H 115 H
04/02/25 04/02/25
05:58 07:20
Glucose 87
POC Glucose 87
Meal type: Breakfast
Meal type: Dinner
Meal type: Lunch
Amount consumed: 100%
Amount consumed: 80%
Amount consumed: 75%
Patient Education
[2024-05-21] MEDS: SPIRIVA RESPIMAT 2.5 MCG 2 PUFF INH (09:05)
[2024-05-21] MEDS: ADVAIR HFA 45/21 MCG INHALER 2 PUFF INH (09:06)
--- NOTE | 2024-05-21 10:17 | W.DCSUMMARY ---
Discharge Summary
Discharge Data
Date of Admission: 04/28/24
Date of Discharge: 05/21/24
-
Pending Results: No
Hospital Course
Disposition : [facility]
Principal Discharge diagnosis :Abdominal pain , Sepsis secondary to a AAA stent graft infection along Pseudomonas bacteremia, s/p right axillary bifemoral arterial bypass due AAA stent graft infection, Acute hypoxemic respiratory failure secondary
to deconditioning and atelectasis, Pleural effusion, CBD Mass, acute kidney injury, electrolyte abnormalities(hypokalemia, hypomagnesemia), lower extremity edema,
Chronic Discharge diagnosis : History of liver transplant, Diabetes mellitus, COPD , hx of abdominal or aneurysm repair with stent, history of multiple bile duct stents
Hospital Course :
#Abdominal pain: The patient presented to ER after having a large episode of diarrhea on 04/25/2024. The patient was admitted to the hospital with a diagnosis of enteritis which was noted on his abdominal CT. Following admission, patient had
ongoing abdominal pain and constipation. His obstructive x-ray series only showed mild colonic stool burden and he was treated for his constipation. His blood cultures showed persistent bacteremia with Pseudomonas aeruginosa. Due to his
persistent bacteremia, the patient was consulted to infectious disease team and he was obtained a CT angio pelvis/abdomen for possible aorto-bi iliac stent infection. CT angio abdomen pelvis showed acute aortitis and intraluminal mass in the
distal common bile duct. Infectious disease managed the patient`s antibiotic treatment and followed patient closely. Vascular surgery and gastroenterology team was consulted. The patient underwent an acute surgery with vascular surgery team on
05/01/2024 due aortitis. He had a right axillary bifemoral artery bypass and his infected stent was removed. The patient required to have explanting of entirety of infected aortic endograft via retroperitoneal incision with oversewing of aortic
and iliac systems and wide debridement of retroperitoneum. He required multiple blood transfusion during the surgery and he was placed on chest tube. Following surgery, he was followed at ICU due his critical condition. He developed generalized
severe edema following the surgery which was treated with diuresis. He was extubated on 05/02/2024. The patient's condition gradually improved and he became to start more hemodynamically stable. He was followed by vascular surgery team and his
chest tube removed on 05/07/24. The patient had respiratory distress following the surgery and stayed on supplementary oxygen via nasal cannula. Additionally, he was found having pleural effusion and underwent thoracocentesis on 05/12/2024 and was
removed about 2000 mm of mostly bloody pleural fluid. The patient was also given continuously diuresis and albumin to address his respiratory problem and generalized edema. The patient gradually had improvement with his breathing despite having
some small amount of effusion on his left side. Interventional radiology canceled thoracocentesis considering not enough amount of pleural effusion to remove on 05/19/2024. Patient had improvement with his breathing and saturated well without any
supplemental oxygen.The patient's follow-up CT angio noted widely patent grafts and hematomas/seromas in the right axilla and in both inguinal regions adjacent to the graft anastomotic sites. He was followed by vascular surgery team and his
surgical site healed. His staplers were removed. Infectious disease recommended for the patient to continue ceftazidime 2g IV q8h through 06/12/24, followed by lifelong suppressive therapy with ciprofloxacin 500mg oral BID
#CBD Mass:Patient's CT angiography on 04/28/24 noted aortitis and CBD mass and GI was consulted. GI team planned to order an MRCP for CBD mass but patient did need to have an urgent surgery with vascular team. Following surgery, patient had
staplers on his abdominal and back area which were considered not MRI compatible. Also, the patient was not hemodynamically stable for a while after the surgery. it was decided by GI team to have MRI/MRCP after patient became more stable and his
staplers removed. GI team did continue to follow the patient. The patient's follow-up CT angio on 05/16/24 noted resolved intraluminal filling defect in CBD and pneumobilia. Extensive pneumobilia was considered as a good sign,implying patency of
choledochojejunostomy by GI team. Given resolution of CBD mass, abdominal MRI plan was cancelled. His ongoing abdominal pain was considered likely due his complicated hospitalization due to infected graft and bacteremia.
# Acute kidney injury: Resolved with IV fluids
#Electrolyte abnormalities(hypokalemia, hypomagnesemia): Resolved with replacement
# Lower extremity edema: The patient was given albumin and IV Lasix following the surgery and he was continued on IV Lasix to address his severe generalized edema. His upper extremity edema resolved and his lower extremity edema improved. It was
planned to continue 40 mg furosemide BID for 5 days following his discharge and continue 40 mg daily for later.
# Other chronic medical problems: These problems managed as able to
Important imaging findings :
04/25/24 Abdomen/Pelvis CT findings:
Visualized portion of the lung bases are unremarkable.
Liver transplant changes with pneumobilia redemonstrated. Stable 1.4 cm pancreatic body cystic lesion. The spleen, kidneys, adrenal glands are within normal limits. Gallbladder absent.
Aortobiiliac stent graft redemonstrated with excluded infrarenal aneurysm sac measuring up to 3.3 cm, stable.
No enlarged lymph nodes, free fluid, or free air. Slightly prominent fluid-filled small bowel loops in the lower abdomen with questionable appearance of two separate transition points involving different portions of the bowel, one in the right mid
abdomen (axial image 53) and another in the low anterior central abdomen (axial image 72). The bowel is without evidence of adjacent inflammatory changes. No perforation or abscess. Normal appendix.
Bladder unremarkable.
Grossly no suspicious osseous lesions are identified.
IMPRESSION:
1. Probable enteritis/ileus. Cannot rule out developing small bowel obstruction with questionable transition points as described.
04/30/24 CT Abd/pelvis Angio W/wo Iv
CLINICAL INDICATION: Abdominal pain. Sepsis secondary to enteritis/ileitis. Leukocytosis. Acute kidney injury. Liver transplant 2006. Aortobiiliac stent graft in place. Constipation. Diabetes mellitus.
TECHNIQUE: A CT examination of the abdomen and pelvis was performed without intravenous contrast. A CTA examination of the abdomen and pelvis was performed following the administration of nonionic intravenous contrast material. Images were acquired
during the arterial and delayed urographic phases of enhancement. Oral contrast was not administered. Coronal and sagittal reformatted images were obtained. 3-D reformatted images were obtained. Automatic exposure control radiation dose reduction
technology was utilized.
COMPARISON: Comparison is made with a radiographic obstruction series performed 04/28/[address] examination of the abdomen and pelvis performed 04/25/2024.
FINDINGS:
CHEST: The heart is mildly enlarged. There is severe calcific atherosclerotic plaque in the coronary arteries. There is mild to moderate calcific atherosclerotic plaque and mild tortuosity in the descending thoracic aorta. There is no pericardial or
pleural effusion. There is mild elevation of the right hemidiaphragm. There is mild bronchial wall thickening in the lower lobes of both lungs. There is a mild amount of subpleural subsegmental atelectasis and scarring in the basilar segments of the
lower lobes of both lungs.
ABDOMEN: There is a right upper quadrant liver transplant in place. There is a mild amount of pneumobilia in the liver. The common hepatic and common bile ducts are distended and demonstrate circumferential wall thickening and hyperenhancement. The
common bile duct measures 1.6 cm in AP dimension proximal to a 1.3 cm intraluminal filling defect in the distal common bile duct (coronal image #35).
There is no pancreatic ductal dilatation. There is moderate to severe diffuse pancreatic parenchymal atrophy. There is a 1.3 cm cyst in the pancreatic neck. The adrenal glands appear normal.
There is mild to moderate bilateral renal cortical volume loss. There is no hydronephrosis in either kidney. There is a mild amount of bilateral perinephric fat stranding.
The spleen is normal in size. There is no mesenteric lymphadenopathy.
The stomach is nearly completely collapsed. The duodenum and jejunum appear normal. There is no upper abdominal ascites or pneumoperitoneum.
ABDOMINAL AORTA: There is mild calcific atherosclerotic plaque in the proximal celiac artery. There is moderate to severe calcific atherosclerotic plaque in the proximal superior mesenteric artery. Both renal arteries are patent and contain moderate
calcific atherosclerotic plaque.
There is an aortobiiliac endograft in place which appears patent. The [place] aneurysm sac around the endograft measures 4.0 cm transverse dimension (coronal image #36, series #502) which has increased in size since 12/18/2021. The wall of the [place]
aneurysm sac contains calcification and demonstrates moderate diffuse thickening which appears to have increased since 12/18/2021. There is no evidence for retrograde filling of the [place] aneurysm sac from lumbar or inferior mesenteric arteries to
suggest a type II endoleak. There is a mild amount of retroperitoneal edema around the abdominal aortic aneurysm and an increased number of small retroperitoneal lymph nodes.
PELVIS: There is no abnormal small bowel distention or wall thickening. The appendix appears normal. The cecum is mildly distended with fluid and air measuring 7.2 cm diameter. There is mild diverticulosis throughout the ascending colon and
transverse colon. There is severe diverticulosis in the descending colon. There is a mild amount of circumferential wall thickening in the rectum.
There is mild circumferential wall thickening of the urinary bladder with a mild amount of perivesical inflammation. The prostate gland and seminal vesicles appear normal. There is no peritoneal fluid or lymphadenopathy in the pelvis.
SKELETON: There is mild right lateral listhesis of L2 on L3. There is severe discogenic degenerative disease at all the lumbar levels with severe loss of intervertebral disc space height, large vertebral body endplate osteophytes, and intervertebral
disc vacuum phenomenon. The L5 vertebral body is partially sacralized on the left. There is mild bilateral osteoarthritis of the sacroiliac joints. There is minimal osteoarthritis in the hips.
IMPRESSION:
1. Aortobiiliac endograft in place with an interval increase in size of the [place] aneurysm sac around the endograft, interval increase in circumferential wall thickening of the [place] aneurysm, mild retroperitoneal inflammation, and increased
small retroperitoneal lymph nodes. The constellation of findings is suggestive of ACUTE AORTITIS which could be secondary to infection or inflammatory disease.
2. Moderate extrahepatic biliary dilatation with suggestion of an obstructing 1.3 cm intraluminal mass in the distal common bile duct. Diagnostic possibilities are (1) choledocholithiasis or (2) less likely bile duct cancer. Mild wall thickening
and hyperenhancement of the common hepatic and common bile ducts suggesting CHOLANGITIS.
3. Right upper quadrant liver transplant in place with mild pneumobilia in the liver.
4. Mild diffuse urinary bladder wall thickening with mild perivesical inflammation suggesting cystitis.
5. Mild to moderate chronic bilateral renal disease.
6. Severe multilevel lumbar discogenic degenerative disease.
7. Mild cardiomegaly.
8. Severe calcific atherosclerotic plaque in the coronary arteries.
05/11/24 PROCEDURE: CR Chest Portable - 1 View
CLINICAL INDICATION: SOB
TECHNIQUE: Portable frontal semi-erect view of the chest.
COMPARISON: 05/08/2024
FINDINGS:
Lines and tubes: None.
Lungs: Mild to moderate left pleural effusion with associated consolidation, progressed. Right lung is clear. No visualized pneumothorax.
Heart: Stable enlargement of the cardiomediastinal silhouette. Slightly progressed mild to moderate pulmonary vascular congestion.
Osseous structures: No acute abnormalities.
IMPRESSION:
Mild to moderate CHF and left pleural effusion with associated atelectasis and/or pneumonia, progressed.
05/17/24
PROCEDURE: CR Chest Portable - 1 View
CLINICAL INDICATION: 73-year-old with shortness of breath
TECHNIQUE: Portable AP upright view of the chest obtained at 0722 hours
COMPARISON: Previous chest radiographs, the most recent from May 12, 2024. Comparison to CT angiography of the chest from May 16, 2024.
FINDINGS: Right PICC line is present with tip near the cavoatrial junction, stable.
Opacity in the left lower hemithorax, with evidence for small to moderate left pleural effusion. Adjacent left base parenchymal opacity which is most likely atelectasis.
Minimal blunting of the right lateral costophrenic angle suggesting a minimal right pleural effusion. The right lung appears otherwise clear radiographically.
No convincing evidence for pulmonary edema pattern.
IMPRESSION:
Evidence for left pleural effusion with adjacent parenchymal opacity, likely atelectasis. Left base atelectasis appears slightly improved compared to May 12, 2024 exam.
Minimal blunting of the right lateral costophrenic angle suggesting a minimal right pleural effusion.
05/17/24 Exams: US Chest - Left
Ultrasound chest
TECHNIQUE: Grayscale imaging was performed.
INDICATION: Left pleural effusion.
COMPARISON: Chest x-ray 05/17/2024
FINDINGS: There is a moderate left pleural effusion. It is simple.
IMPRESSION: Moderate left pleural effusion. Appears larger by ultrasound imaging.
05/19/24
Exams: US Chest - Left
EXAMINATION: Ultrasound, left chest, limited.
INDICATION: Effusion, request for thoracentesis.
COMPARISON: 05/17/2024.
FINDINGS/IMPRESSION: Small left pleural effusion is present. The volume is insufficient for ultrasound-guided thoracentesis at this time. Volume appears decreased as compared to previous examination.
Procedure findings :
Operative Report
PROCEDURE DATE: 05/01/2024
Preoperative diagnosis: Aortic endograft infection.
Postoperative diagnosis: Same
Procedure:
1. Right axillary bifemoral artery bypass with 8 mm ringed [place] Propaten graft.
2. 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
Surgeon: Clovis
Co-surgeon: Rolan (required for surgery due to complexity, multiple sites, lack of assistance otherwise).
Hand Mica Plate Layer: None
Complications: None
Anesthesia: General
Indications for procedure:
Patient with fever/chills, positive blood cultures with Pseudomonas, worsening abdominal pain. Short interval CT scan follow-up demonstrated enlargement of aortic aneurysm sac with concern for infected aorta/aortic thrombus. Presence of endograft.
Concern for infected endograft. With/benefits/alternatives of explant of endograft with revascularization all fully discussed. Patient understood all wished to proceed.
Description of procedure:
Patient was identified brought to the operating room placed on the table in supine position. After the adequate administration of anesthesia and the placement of invasive anesthetic lines and catheters, he was prepped and draped in the standard
surgical fashion. A standard preoperative timeout was undertaken and everybody was in agreement the plan. Concomitant incisions were made in the vicinity of the right axillary artery and bilateral groins. The axillary incision was made about 1
fingerbreadth inferior to the mid to distal third of the clavicle. This was carried through the skin and subcutaneous tissue and then through the clavipectoral fascia. Self-retaining retractors were applied. The The thoroacromial artery was
identified and this was followed down to the main axillary artery. The thoracoacromial branch was ligated between silk ties and divided. Proximal and distal circumferential control of the axillary artery was obtained. The artery was noted to be
soft and pulsatile.
Bilateral oblique groin incisions were made that were carried through skin subcutaneous tissue. We dissected down to the level of the inguinal ligament. The common femoral arteries were identified as the emergency room underneath inguinal
ligament. Bilaterally there were high femoral bifurcations. Careful dissection was undertaken to gain control of the common femoral artery, profunda, SFA proximally bilaterally. The arteries bilaterally were relatively soft and pulsatile. Mild
amounts of plaque were noted. Circumferential control was gained of the bilateral common femoral/SFA and profundus. Vesseloops were passed around them.
At this point via a counterincision on the right chest wall, a [place] Propaten axillobifemoral bypass graft was tunneled from the axillary incision site to both groin incision sites. Care was taken to avoid any kinking or twisting. Of note the graft
tunneled deep to the pectoralis minor traveling out slightly laterally before coursed down so as to avoid any undue tension on the anastomosis. At this point the patient was given 8000 units of intravenous heparin. Once this had circulated, the
axillary artery was clamped proximally distally. Arteriotomy was made with an 11 blade and extended using a Malone scissor. The graft was beveled and an end-to-side anastomosis was created between the graft and the axillary artery using running
[place] CV 6 suture. The suture line was completed and tied down but the [place] arteries were backbled prior to releasing the clamps. The graft was then clamped and the [place] artery clamps were released. Excellent pulsatile flow was noted in the
axillary artery and into the graft. Two 6-0 Prolene [id number] sutures were applied to the suture line bleeding sites. Otherwise hemostasis was achieved. At this point to the femoral anastomoses were fashioned. Initially with the right side
and then the left. For both anastomoses, the femoral branches were clamped, and arteriotomies were made on the common femoral artery holding onto the superficial femoral artery. The grafts were trimmed and beveled and end-to-side anastomoses were
performed using running [place] CV 6 sutures. Prior to completing and tying down the suture lines [place] arteries were backbled and graft flow was flushed. Sutures were then completed and tied down after irrigating heparinized saline. As noted this
was completed on the right side first and then on the left side. Upon completion graft clamps were released and flow was reestablished. Excellent pulsatile flow was noted in bilateral groins. At this point were very satisfied. Hemostasis was
achieved in both groins as well. Upon confirmation of hemostasis in the groin incisions in the axillary incision, all sites were irrigated. We then closed in layers using Vicryl suture followed by skin clips. Sterile dressings were then applied.
Protamine was given to reverse the heparin.
Next we broke down our drapes and repositioned the patient in a right lateral decubitus position (left side up). A beanbag was inflated to help position the patient, an axillary roll was placed and appropriate padding was placed at all pressure
points. The patient was then prepped and draped again in the standard surgical fashion. A retroperitoneal incision was fashioned beginning in the ninth interspace, and extending towards the midline umbilicus. This was carried through the skin and
subcutaneous tissue with electrocautery and then through the external oblique and internal oblique muscle layers and through the transversalis fascia. The peritoneum was then identified and carefully swept off the abdominal wall musculature. More
laterally the incision was extended over the rib and the rib was dissected on either side and then divided more proximally in order to facilitate exposure. Of note the pleural space was entered, but there is no injury to the lung. At this point we
continue to sweep the peritoneum from laterally to medially (left to right). This was done through the entirety of the abdominal cavity including up to the level of the diaphragm thereby sweeping the more proximal organs such as the spleen and
pancreas along with the remainder of the organs all medially. The psoas muscle was identified as was the aorta then. The aorta was noted to be heavily inflamed with inflamed fatty tissue overlying it. We placed self-retaining retractors at this
point (Omni retractor system). We then began dissecting over the aorta the retroperitoneum. There is heavy retroperitoneal fat that was inflamed that was all very oozy. We use electrocautery as much as possible to limit the oozing. The ascending
lumbar vein was ligated and divided, but there was a little bit of bleeding from it before we are able to isolate it. Then we were able to control it and ligated and divided. We then continued to dissect on the retroperitoneum identifying the
aortic aneurysm sac. We continued to dissect cephalad. Finally we were able to identify the left renal artery which was heavily calcified. Careful circumferential dissection was undertaken to pass a vessel loop around it. We then continued our
cephalad dissection and were able to palpate the SMA which came off at almost the same level of the left renal artery. More cephalad we are able to palpate the celiac artery, and then created a clamp zone just above there. An aortic clamp was
positioned but not clamped at that position. An infrarenal clamp zone was also fashioned so that we could move clamped down if possible. We continued dissection down to the level of the iliac arteries. These were heavily frozen and scar tissue.
We were able to position a clamp at the left renal artery, and at the origin of the right renal artery that was heavily scarred. But we are able to get enough around it to position a clamp. At this point once we had proximal and distal exposure,
we clamped the iliac arteries (common iliac arteries) bilaterally. We then clamped the supraceliac aorta briefly. We then quickly an aortotomy with the electrocautery in the infrarenal aorta and then extended it with a heavy scissor. We
immediately encountered purulent drainage. This was sent for culture. Now we teed off our aortotomy in the infrarenal aorta. I then grasped the graft and was able to pull it off the wall and then pull it out. Once we had the graft out we then
quickly clamped the infrarenal aorta (had positioned a clamp there) and released our supraceliac clamp. Therefore the supraceliac clamp time was only a couple minutes. Next we clamped the endograft limbs to curb the backbleeding from the iliacs.
We now transiently released the iliac clamps while pulling out the iliac limbs. And then we quickly reclamped the iliac (common iliac) arteries. As such we are able to remove the entirety of the graft. At this point we had hemostatic control of
the aorta and had removed the graft. Therefore we now oversewed the proximal aortic stump with a 2 layer running 3-0 Prolene suture. We initially performed this and some of the tissue was a little bit weak and when we released a clamp there was
bleeding. We therefore then moved our infrarenal clamp slightly higher but still in the infrarenal position. We then repeated our 2 layer 3-0 Prolene running vascular closure. We tied down our suture line and then released our clamp. At this
point hemostasis was noted. We now turned our attention distally. Similarly the aortic bifurcation itself was sutured closed with a 2 layer vascular closure using a running 3-0 Prolene suture. Upon release of our iliac clamps hemostasis was
noted. We were able to palpate iliac artery pulses in the iliac arteries beyond our stump closure. We then irrigated copiously. We debrided the aortic wall. We achieved full hemostasis. A 24 [place] chest tube was brought out through a separate
stab incision and positioned in the pleural space. Was secured to the skin with a heavy silk suture. We then closed our incision with 0 Vicryl running layer for the internal oblique/muscular layer in the chest. #1 running PDS was then used to
close the external oblique layer. Skin clips were applied. Dressings were applied. The patient tolerated the procedure well. Upon completion he had dopplerable DP signals in both feet. He will be taken to the ICU in critical condition remaining
intubated. All sponge, needle, instrument counts were correct at the end of the case.
05/12/24 PROCEDURE: Ultrasound-guided thoracentesis, Left.
INDICATION: Left pleural effusion, shortness of breath .
TECHNIQUE: The risks and benefits of the procedure were discussed with the patient and informed, written consent was obtained. The patient was positioned upright. A timeout was performed to verify the patient's identity and the planned procedure.
The left posterior chest wall was prepped and draped in the normal sterile fashion. Maximum sterile barrier techniques were utilized, including wearing cap and mask, sterile gown, sterile gloves, and a large sterile sheet. Hand hygiene and 2%
chlorhexidine were also utilized.
Ultrasound was used to evaluate the pleural effusion and plan the approach, with access site marked on the skin. Local anesthesia was then administered subcutaneously with 10 mL of 2% lidocaine. Next, using real-time ultrasound guidance, a 5 Kyr[place]z
TVplusesis catheter was advanced into the pleural space using trocar technique at the marked site with direct visualization. Sample was aspirated, and the remainder of fluid was drained. All devices were then removed, and a dressing is applied.
The patient tolerated the procedure well with no immediate complication. A permanent image was stored.
IMPRESSION: Successful ultrasound-guided thoracentesis, yielding 2000 cc of grossly bloody pleural fluid.
Discharge Plan
-
Patient Disposition: Senior Living/SNF
Discharge Diagnosis/Procedures: Sepsis secondary to a AAA stent graft infection along Pseudomonas bacteremia
s/p right axillary bifemoral arterial bypass due AAA stent graft infection
Abdominal pain
Lower extremity edema
Pleural effusion
History of liver transplant
Diabetes mellitus
Condition: Fair
Diet: 2 Gram Sodium, Diabetic, Carb Controlled and Restrict fluids to 48 oz
Activity: No strenuous activity
Driving Restrictions: Not until seen by your Dr
Bathing Restrictions: OK to Shower
Activity Restrictions/Additional Instructions:
1. Continue ceftazidime 2g IV q8h through 06/12/24
2. Weekly CBC, CMP while on ceftazidime.
3. On 06/13/24, start lifelong suppressive therapy with cipro 500mg po bid.
Stand Alone Forms: DC Instr - Vascular OR
Referrals:
Nishi Thornton PA-C [Specified Professional Personl] - 05/30/24 1:00 pm
Kev Trujillo MD [Active] - (call to arrange OP follow up with possible bile duct stone on imaging. Return to ER with fever, chills, abdominal pain or problems)
Odilia Velázquez DO [Family Provider] -
Olivia Hartley MD [Active] - in two to three weeks
Prescriptions:
New
loperamide 2 mg Capsule
2 mg PO Q6HPRN PRN (Reason: diarrhea) 10 Days Qty: 40 0RF
ceftazidime [Tazicef] 2 gram Recon Soln
2,000 mg IV Q8H 22 Days Qty: 66 0RF
dapagliflozin propanediol 10 mg Tablet
10 mg PO DAILY 60 Days Qty: 60 0RF
ciprofloxacin HCl 500 mg tablet
500 mg PO BID Qty: 60 1RF
Rx Instructions:
START FROM 06/13 AFTER FINISHING IV ANTIBIOTICS
furosemide 40 mg tablet
See Rx Instructions .ROUTE .COMPLEX Qty: 30 0RF
Rx Instructions:
Take 1 Tablet twice daily for 5 days THEN
Take 1 Tablet once daily
Continued
calcium carbonate-vitamin D3 [Calcium 500 + D] 1 EACH tablet
500 mg PO BID
Spiriva Respimat 1 PUFF mist
2 puff inhalation R DAILY
clopidogrel 75 MG tablet
75 mg PO DAILY Qty: 30 11RF
Eliquis 5 MG tablet
5 mg PO BID Qty: 60 3RF
albuterol sulfate 90 mcg/actuation Hfa Aerosol Inhaler
2 puff INHALATION R Q6HPRN PRN (Reason: sob)
atorvastatin 80 mg Tablet
40 mg PO DAILY
magnesium oxide 420 mg Tablet
420 mg PO BID
therapeutic multivitamin Tablet
1 tab PO DAILY
fluticasone propion-salmeterol 100-50 mcg/dose Blister With Device
2 inh INHALATION R BID
pregabalin 200 mg Capsule
200 mg PO BID
metformin 500 mg Tablet
500 mg PO DAILY
metoprolol succinate 100 mg Tablet Extended Release 24 Hr
150 mg PO DAILY
amlodipine 2.5 mg Tablet
2.5 mg PO DAILY
lisinopril 10 mg Tablet
10 mg PO DAILY
tacrolimus 0.5 mg Capsule
1.5 mg PO BID
pantoprazole [Protonix] 40 mg Tablet,Delayed Release (Dr/Ec)
40 mg PO BID
tiotropium bromide 2.5 mcg/actuation Mist
2 puff INHALATION DAILY
Discontinued
furosemide 40 mg Tablet
40 mg PO DAILY
Discharge Orders:
Discharge Patient (As Directed); Ordered 05/21/24
Ordered By: Shannon Cummings
Discharge Date and Time
Print Language: TAMAZIGHT
--- NOTE | 2024-05-21 10:49 | CM ---
Chart reviewed. Plan is for patient to d/c to SNF. [facility] for today after patient's 2pm abx dose. CM faxed abx script and PICC report to [facility] as requested.
Per hospitalist, patient is stable for d/c today.
Spoke w/ patient' daughter, Akanksha, to update on d/c. Akanksha agreeable.
Met w/ patient bedside to update, agreeable to d/c today
Patient will transport via [employer] van, patient and daughter agreeable to $90 cost
IMM verbally reviewed, patient given copy, copy placed on chart
[facility]
Report: [phone]

Plan: D/c to [facility]. WC van transport
[2024-05-21 11:46] VITALS: BP 121/67
[2024-05-21 12:13] VITALS: O2SAT 96
[2024-05-21 12:13] LABS: Glucose - Point of Care 109 mg/dl (70-99)
[2024-05-21 12:16] VITALS: PULSE 80; O2SAT 97
--- NOTE | 2024-05-21 14:34 | W.PN.ID1 ---
Date of Service
Date of Service: May 21, 2024
Today's Communication
Continue ceftazidime 2g IV q8h through 06/12/24, followed by lifelong suppressive therapy with cipro 500mg po bid.
Assessment / Plan
# Pseudomonas bacteremia (4 sets)
# AAA stent graft infection with Pseudomonas
- remote hx AAA s/p aortobi-iliac stent graft (at [facility])
- CTA: acute aortitis
# Biliary obstruction with intraluminal mass in CBD
- No longer seen on repeat CTA c/a/p 05/16
- GI following
# Leukocytosis - resolved
# Hx liver transplant; on tacrolimus
#mental status change - resolved off cefepime
# Volume overload
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
- 04/30 blood cultures - Neg
- 05/02 blood cultures - Neg
- 05/01 tissue cultures from the OR - Pseudomonas aeruginosa
- Volume overload.
DC'd Zosyn 05/13; abx has high sodium content - > may contribute to volume overload/CHF exacerbation.
- Continue ceftazidime 2g IV q8h through 06/12/24, followed by lifelong suppressive therapy with cipro 500mg po bid.
- Infusion sheet submitted to [facility].
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
Paroxysmal atrial fibrillation
CAD
Hypertension
Neuropathy
COPD
AAA s/p remote hx of aortobi-iliac stent graft (at [facility])
Cholecystectomy
Back surgery
History of multiple bile duct stents
Chief Complaint
-: Bacteremia and Other (Endograft infection)
Subjective / Review of Systems
Going to rehab today.
Vital Signs / Physical Exam
Vital Signs
Vital Signs
Temp Pulse Resp BP Pulse Ox
98 F 81 18 121/67 96
05/21/24 11:46 05/21/24 11:46 05/21/24 11:46 05/21/24 11:46 05/21/24 11:46
Physical Exam
Constitutional: No Acute Distress
Cardiovascular: Regular Rate and S1/S2
Pulmonary: Other (decreased BS L base)
Gastrointestinal: Soft, Non Tender and Non Distended
Genito-Urinary: Negative CVA Tenderness
Extremities: Edema (BLE)
Neurological: AO x 3
Lines: PICC (RUE intact)
Objective Data
Lab Data
Lab Results
05/21/24 05:58
05/21/24 05:58
PT 17.8 Sec (11.4-14.6) H 05/06/24 03:46
INR 1.44 05/06/24 03:46
APTT 37.1 Sec (23.4-35.0) H 05/07/24 05:17
Estimated Creat Clear 59 ml/min 05/21/24 05:58
Lactic Acid 1.4 mmol/L (0.7-2.0) 05/02/24 08:21
Total Bilirubin 1.0 mg/dl (0.2-1.3) 05/21/24 05:58
AST 24 U/L (17-59) 05/21/24 05:58
ALT 12 U/L (0-50) 05/21/24 05:58
Alkaline Phosphatase 152 U/L (38-126) H 05/21/24 05:58
Most recent labs reviewed.
Micro Results:
05/16/24 10:10 C. difficile GDH Antigen & Toxins - Final
Feces/Stool Negative for toxigenic C.difficile
05/02/24 12:54 Blood Culture - Final
Blood/Venous No Growth - Final Report
05/02/24 12:37 Blood Culture - Final
Blood/Venous No Growth - Final Report
05/01/24 20:42 Wound Culture - Final
Abdomen Pseudomonas aeruginosa
Gram Stain - Final
05/01/24 20:42 Anaerobic Culture - Final
Abdomen NO ANAEROBES ISOLATED
04/30/24 08:50 Blood Culture - Final
Blood/Venous No Growth - Final Report
04/29/24 06:51 Blood Culture - Final
Blood/Venous Pseudomonas aeruginosa
Gram Stain - Final
04/28/24 13:34 Blood Culture - Final
Blood/Venous Pseudomonas aeruginosa
Gram Stain - Final
04/30/24 09:18 Blood Culture - Final
Blood/Venous No Growth - Final Report
05/01/24 20:42 Tissue Culture - Final
Tissue Pseudomonas aeruginosa
Gram Stain - Final
05/01/24 20:42 Tissue Culture - Final
Heart Pseudomonas aeruginosa
Gram Stain - Final
04/25/24 15:59 Blood Culture - Final
Blood/Venous Pseudomonas aeruginosa
Gram Stain - Final
04/25/24 15:59 Blood Culture - Final
Blood/Venous Pseudomonas aeruginosa
Gram Stain - Final
04/25/24 17:36 Urine Culture - Final
Urine NO GROWTH
04/26/24 00:04 MRSA Screen - Final
Nose No Methicillin Resistant Staphylococcus aureus isolated.
04/25/24 08:58 Influenza Types A & B (NITIN) - Final
Nasal Swab Negative for Influenza A & B, NAAT
Negative results must be combined with clinical observations
and patient history.
Nucleic Acid Amplification test (NAAT)performed on the
[employer] platform.
Imaging:
04/28/24 CT a/p: Probable enteritis/ileus. Cannot rule out developing small bowel obstruction with questionable transition points as described.
04/28/24 Chest/abd xray: Nonobstructive bowel gas pattern. Mild colonic stool burden.
04/30/24 CT angiogram a/p: Aortobiiliac endograft in place with an interval increase in size of the [place] aneurysm sac around the endograft, interval increase in circumferential wall thickening of the [place] aneurysm, mild retroperitoneal
inflammation, and increased small retroperitoneal lymph nodes. The constellation of findings is suggestive of ACUTE AORTITIS which could be secondary to infection or inflammatory disease. 2. Moderate extrahepatic biliary dilatation with suggestion
of an obstructing 1.3 cm intraluminal mass in the distal common bile duct. Diagnostic possibilities are (1) choledocholithiasis or (2) less likely bile duct cancer. Mild wall thickening and hyperenhancement of the common hepatic and common bile
ducts suggesting CHOLANGITIS. 3. Right upper quadrant liver transplant in place with mild pneumobilia in the liver.
[2024-05-21 15:59] VITALS: BP 119/64
--- NOTE | 2024-05-21 16:05 | PTCARENOTE ---
Pt AAO x3, POLANCO; OOB to chair/BSC with assist x1, occ uses walker, nubia well. VSS. Curently on room air- pulse ox 97%, pt with (+) slight LONGORIA/tachypnea; denies SOB. Abd obese, soft, nubia PO well. Voiding clear casey urine in urinal. Bilat groin
marija removed by vascular service; sites JOSÉ MIGUEL. Resting in chair at present, awaiting transfer to [facility].
== END 2024-05-21 16:21 | DRG 268 ==
LOC: 4 EAST ACU 08:00
PROVIDERS: Emergency Medicine; Hospitalist; Internal Medicine; Nurse Practitioner; Nurse Practitioner Acute Care; Nurse Practitioner Adult Health; Nurse Practitioner Primary Care; Physician Assistant; Radiology Diagnostic Radiology; Radiology Vascular & Interventional Radiology; Student in an Organized Health Care Education/Training Program; ADMITTING PHYSICIAN Hospitalist; ATTENDING PHYSICIAN Hospitalist; CONSULT PHYSICIAN Internal Medicine; CONSULT PHYSICIAN Internal Medicine Critical Care Medicine; CONSULT PHYSICIAN Internal Medicine Infectious Disease; CONSULT PHYSICIAN Surgery Vascular Surgery; EMERGENCY PHYSICIAN Student in an Organized Health Care Education/Training Program; FAMILY PHYSICIAN Family Medicine
PROC: 30233N1 Transfusion of Nonautologous Red Blood Cells into Peripheral Vein, Percutaneous Approach (ICD-10-PCS; 2024-05-01)
PROC: 03150JC Bypass Right Axillary Artery to Bilateral Lower Leg Artery with Synthetic Substitute, Open Approach (ICD-10-PCS; 2024-05-01)
PROC: 5A1935Z Respiratory Ventilation, Less than 24 Consecutive Hours (ICD-10-PCS; 2024-05-01)
PROC: 04B Lower Arteries, Excision (ICD-10-PCS; 2024-05-01)
PROC: 30233K1 Transfusion of Nonautologous Frozen Plasma into Peripheral Vein, Percutaneous Approach (ICD-10-PCS; 2024-05-01)
PROC: 30233R1 Transfusion of Nonautologous Platelets into Peripheral Vein, Percutaneous Approach (ICD-10-PCS; 2024-05-01)
PROC: 0BH17EZ Insertion of Endotracheal Airway into Trachea, Via Natural or Artificial Opening (ICD-10-PCS; 2024-05-01)
PROC: 30243N1 Transfusion of Nonautologous Red Blood Cells into Central Vein, Percutaneous Approach (ICD-10-PCS; 2024-05-02)
PROC: 0D9670Z Drainage of Stomach with Drainage Device, Via Natural or Artificial Opening (ICD-10-PCS; 2024-05-04)
PROC: 02HV33Z Insertion of Infusion Device into Superior Vena Cava, Percutaneous Approach (ICD-10-PCS; 2024-05-12)
PROC: 0W9B3ZZ Drainage of Left Pleural Cavity, Percutaneous Approach (ICD-10-PCS; 2024-05-12)
DX: T82.7XXA Infection and inflammatory reaction due to other cardiac and vascular devices, implants and grafts, initial encounter (principal); A41.52 Sepsis due to Pseudomonas; J96.01 Acute respiratory failure with hypoxia; R65.21 Severe sepsis with septic shock; K83.1 Obstruction of bile duct; G92.8 Other toxic encephalopathy; Z94.4 Liver transplant status; E87.21 Acute metabolic acidosis; N17.9 Acute kidney failure, unspecified; D84.821 Immunodeficiency due to drugs; E87.1 Hypo-osmolality and hyponatremia; K56.7 Ileus, unspecified; R57.9 Shock, unspecified; Z99.11 Dependence on respirator [ventilator] status; D62 Acute posthemorrhagic anemia; J98.11 Atelectasis; J90 Pleural effusion, not elsewhere classified; F05 Delirium due to known physiological condition; K86.2 Cyst of pancreas; A08.4 Viral intestinal infection, unspecified; J44.9 Chronic obstructive pulmonary disease, unspecified; I25.10 Atherosclerotic heart disease of native coronary artery without angina pectoris; E86.0 Dehydration; I48.0 Paroxysmal atrial fibrillation; I77.6 Arteritis, unspecified; E11.40 Type 2 diabetes mellitus with diabetic neuropathy, unspecified; I34.0 Nonrheumatic mitral (valve) insufficiency; G89.29 Other chronic pain; E78.5 Hyperlipidemia, unspecified; E86.1 Hypovolemia; M54.16 Radiculopathy, lumbar region; M54.12 Radiculopathy, cervical region; R19.09 Other intra-abdominal and pelvic swelling, mass and lump; R13.10 Dysphagia, unspecified; F17.200 Nicotine dependence, unspecified, uncomplicated; I11.9 Hypertensive heart disease without heart failure; F12.90 Cannabis use, unspecified, uncomplicated; E66.01 Morbid (severe) obesity due to excess calories; F10.10 Alcohol abuse, uncomplicated; E87.6 Hypokalemia; R68.0 Hypothermia, not associated with low environmental temperature; D69.59 Other secondary thrombocytopenia; E88.09 Other disorders of plasma-protein metabolism, not elsewhere classified; T36.1X5A Adverse effect of cephalosporins and other beta-lactam antibiotics, initial encounter; Y92.239 Unspecified place in hospital as the place of occurrence of the external cause; E83.42 Hypomagnesemia; E87.70 Fluid overload, unspecified; D63.8 Anemia in other chronic diseases classified elsewhere; Y83.1 Surgical operation with implant of artificial internal device as the cause of abnormal reaction of the patient, or of later complication, without mention of misadventure at the time of the procedure; Y71.2 Prosthetic and other implants, materials and accessory cardiovascular devices associated with adverse incidents; Y92.9 Unspecified place or not applicable; Z66 Do not resuscitate; I25.2 Old myocardial infarction; Z82.49 Family history of ischemic heart disease and other diseases of the circulatory system; Z82.3 Family history of stroke; Z79.01 Long term (current) use of anticoagulants; Z79.02 Long term (current) use of antithrombotics/antiplatelets; Z79.621 Long term (current) use of calcineurin inhibitor; Z79.84 Long term (current) use of oral hypoglycemic drugs; Z86.79 Personal history of other diseases of the circulatory system; Z11.52 Encounter for screening for COVID-19; Z90.49 Acquired absence of other specified parts of digestive tract; Z95.820 Peripheral vascular angioplasty status with implants and grafts; Z86.16 Personal history of COVID-19; Z68.35 Body mass index [BMI] 35.0-35.9, adult; K57.30 Diverticulosis of large intestine without perforation or abscess without bleeding; Z95.5 Presence of coronary angioplasty implant and graft
CPT/HCPCS: 88300; 88305; 32555; 35654; 35907; 51701; 51798; 71045; 71046; 71275; 74018; 74022; 74174; 74177; 76604; 80048; 80053; 80076; 80197; 81003; 81015; 82042; 82248; 82330; 82805; 82945; 82962; 83036; 83605; 83615; 83690; 83735; 83880; 83986; 84100; 84132; 84157; 84302; 84478; 85025; 85027; 85610; 85730; 86850; 86900; 86901; 86920; 87040; 87070; 87075; 87077; 87086; 87149; 87176; 87186; 87205; 87324; 87449; 87502; 87811; 88112; 89051; 92526; 92610; 93005; 93306; 94002; 94003; 94640; 96360; 97110; 97116; 97162; 97164; 97167; 97530; 97535; 99285; 99406; C1768; J2997; J7168; P9016; P9045; P9047; P9059; P9073; Q9967

== ENCOUNTER → 2024-05-23 11:00 | Outpatient (REF) | payer MEDICARE, OTHER, SELFPAY ==
[2024-05-23 11:30] LABS: % Basophils 1.4 % (0-2); % Eosinophils 5.6 % (0-6); % Lymphocytes 16.3 % (20.5-51.1); % Monocytes 13.9 % (1.7-9.3); % Neutrophils 59.8 % (42.2-75.2); Absolute Basophils 0.1 10^3/uL (0-0.2); Absolute Eosinophils 0.4 10^3/uL (0-0.7); Absolute Immature Granulocytes 0.2 10^3/uL (0-0.05); Absolute Lymphocytes 1.1 10^3/uL (1.2-3.4); Absolute Neutrophils 4.2 10^3/uL (1.4-6.5); Hematocrit 29.7 % (39.0-52.0); Hemoglobin 9.2 g/dL (13.0-18.0); Mean Corpuscular Hgb 31.5 pg (27.0-31.0); Mean Corpuscular Volume 101.7 fL (80.0-94.0); Nucleated Red Blood Cells % 0 % (-); Platelet Count 264 10^3/uL (130-400); Red Blood Cell Count 2.92 10^6/uL (4.70-6.10); Red Cell Dist. Width 18.6 % (11.5-14.5)
[2024-05-23 11:48] LABS: ALT (SGPT) 11 U/L (0-50); AST (SGOT) 22 U/L (17-59); Albumin 2.7 g/dl (3.5-5.0); Alkaline Phosphatase 156 U/L (38-126); Blood Urea Nitrogen 16 mg/dl (9-20); Calcium 8.5 mg/dl (8.4-10.2); Carbon Dioxide 32 mmol/L (22-30); Chloride 105 mmol/L (98-107); Glucose 105 mg/dl (70-99); Potassium 3.1 mmol/L (3.5-5.1); Sodium 144 mmol/L (135-145); Total Bilirubin 0.7 mg/dl (0.2-1.3); Total Protein 5.4 g/dl (6.3-8.2); eGFR > 60.00
[2024-05-24 20:15] LABS: Tacrolimus (Prograft - FK506) 3.2 ng/mL
== END ==
LOC: OLABP 11:00
PROVIDERS: ATTENDING PHYSICIAN Family Medicine
DX: A41.9 Sepsis, unspecified organism (principal); G60.9 Hereditary and idiopathic neuropathy, unspecified; B96.5 Pseudomonas (aeruginosa) (mallei) (pseudomallei) as the cause of diseases classified elsewhere; I77.6 Arteritis, unspecified; J96.01 Acute respiratory failure with hypoxia; K52.9 Noninfective gastroenteritis and colitis, unspecified; I48.0 Paroxysmal atrial fibrillation; I10 Essential (primary) hypertension; I25.10 Atherosclerotic heart disease of native coronary artery without angina pectoris; K72.90 Hepatic failure, unspecified without coma; E87.21 Acute metabolic acidosis; D62 Acute posthemorrhagic anemia; B18.2 Chronic viral hepatitis C; K83.1 Obstruction of bile duct; D72.829 Elevated white blood cell count, unspecified; Z94.4 Liver transplant status; J44.9 Chronic obstructive pulmonary disease, unspecified
CPT/HCPCS: 36415; 80053; 80197; 85025

== ENCOUNTER → 2024-05-24 10:19 | Outpatient (REF) | payer OTHER, MEDICARE, SELFPAY ==
[2024-05-24 11:30] LABS: Blood Urea Nitrogen 19 mg/dl (9-20); Calcium 8.6 mg/dl (8.4-10.2); Carbon Dioxide 34 mmol/L (22-30); Chloride 105 mmol/L (98-107); Glucose 119 mg/dl (70-99); Sodium 143 mmol/L (135-145); eGFR 57.65
== END ==
LOC: OLABN 10:19
PROVIDERS: ATTENDING PHYSICIAN Family Medicine
DX: D72.829 Elevated white blood cell count, unspecified (principal); B18.2 Chronic viral hepatitis C; Z94.4 Liver transplant status; J44.0 Chronic obstructive pulmonary disease with (acute) lower respiratory infection; B96.5 Pseudomonas (aeruginosa) (mallei) (pseudomallei) as the cause of diseases classified elsewhere; J96.01 Acute respiratory failure with hypoxia; K52.9 Noninfective gastroenteritis and colitis, unspecified; I48.0 Paroxysmal atrial fibrillation; K72.90 Hepatic failure, unspecified without coma; E87.21 Acute metabolic acidosis; D62 Acute posthemorrhagic anemia
CPT/HCPCS: 36415; 80048

== ENCOUNTER → 2024-05-26 11:02 | Outpatient (REF) | payer OTHER, MEDICARE, SELFPAY ==
[2024-05-26 12:54] LABS: % Basophils 1.5 % (0-2); % Eosinophils 5.4 % (0-6); % Immature Granulocytes 2.5 % (0-0.5); % Lymphocytes 18.3 % (20.5-51.1); % Monocytes 14.4 % (1.7-9.3); % Neutrophils 57.9 % (42.2-75.2); Absolute Basophils 0.1 10^3/uL (0-0.2); Absolute Eosinophils 0.4 10^3/uL (0-0.7); Absolute Immature Granulocytes 0.2 10^3/uL (0-0.05); Absolute Lymphocytes 1.2 10^3/uL (1.2-3.4); Absolute Neutrophils 3.9 10^3/uL (1.4-6.5); Hematocrit 28.8 % (39.0-52.0); Hemoglobin 9.3 g/dL (13.0-18.0); Mean Corp Hgb Conc. 32.3 g/dL (33.0-37.0); Mean Corpuscular Hgb 32.3 pg (27.0-31.0); Mean Platelet Volume 12.2 fL (7.4-10.4); Nucleated Red Blood Cells % 0 % (-); Platelet Count 225 10^3/uL (130-400); Red Blood Cell Count 2.88 10^6/uL (4.70-6.10); Red Cell Dist. Width 18.3 % (11.5-14.5); White Blood Cell Count 6.7 10^3/uL (4.8-10.8)
[2024-05-26 13:01] LABS: ALT (SGPT) 12 U/L (0-50); AST (SGOT) 25 U/L (17-59); Albumin 2.9 g/dl (3.5-5.0); Alkaline Phosphatase 142 U/L (38-126); Blood Urea Nitrogen 20 mg/dl (9-20); Calcium 8.2 mg/dl (8.4-10.2); Carbon Dioxide 31 mmol/L (22-30); Chloride 106 mmol/L (98-107); Glucose 122 mg/dl (70-99); Potassium 3.6 mmol/L (3.5-5.1); Sodium 145 mmol/L (135-145); Total Protein 5.6 g/dl (6.3-8.2); eGFR > 60.00
== END ==
LOC: OLABP 11:02
PROVIDERS: ATTENDING PHYSICIAN Family Medicine
DX: I77.6 Arteritis, unspecified (principal); B96.5 Pseudomonas (aeruginosa) (mallei) (pseudomallei) as the cause of diseases classified elsewhere; J96.01 Acute respiratory failure with hypoxia; K52.9 Noninfective gastroenteritis and colitis, unspecified; I48.0 Paroxysmal atrial fibrillation; I10 Essential (primary) hypertension; I25.10 Atherosclerotic heart disease of native coronary artery without angina pectoris; K72.90 Hepatic failure, unspecified without coma; E87.21 Acute metabolic acidosis; D62 Acute posthemorrhagic anemia; B18.2 Chronic viral hepatitis C; K83.1 Obstruction of bile duct; D72.829 Elevated white blood cell count, unspecified; Z94.4 Liver transplant status
CPT/HCPCS: 36415; 80053; 85025

== ENCOUNTER → 2024-06-02 12:36 | Outpatient (REF) | payer OTHER, MEDICARE, SELFPAY ==
[2024-06-02 14:44] LABS: Hematocrit 30.3 % (39.0-52.0); Hemoglobin 9.6 g/dL (13.0-18.0); Mean Corp Hgb Conc. 31.7 g/dL (33.0-37.0); Mean Corpuscular Hgb 31.7 pg (27.0-31.0); Mean Platelet Volume 12.8 fL (7.4-10.4); Platelet Count 154 10^3/uL (130-400); Red Blood Cell Count 3.03 10^6/uL (4.70-6.10); Red Cell Dist. Width 17.8 % (11.5-14.5); White Blood Cell Count 6.1 10^3/uL (4.8-10.8)
[2024-06-02 15:15] LABS: ALT (SGPT) < 10 U/L (0-50); AST (SGOT) 24 U/L (17-59); Albumin 2.9 g/dl (3.5-5.0); Alkaline Phosphatase 158 U/L (38-126); Blood Urea Nitrogen 14 mg/dl (9-20); Calcium 8.2 mg/dl (8.4-10.2); Carbon Dioxide 27 mmol/L (22-30); Chloride 109 mmol/L (98-107); Glucose 109 mg/dl (70-99); Potassium 3.6 mmol/L (3.5-5.1); Sodium 147 mmol/L (135-145); Total Bilirubin 0.8 mg/dl (0.2-1.3); Total Protein 5.6 g/dl (6.3-8.2); eGFR > 60.00
[2024-06-02 15:17] LABS: % Basophils 1.5 % (0-2); % Eosinophils 5.4 % (0-6); % Immature Granulocytes 1.1 % (0-0.5); % Lymphocytes 24.1 % (20.5-51.1); % Monocytes 12.5 % (1.7-9.3); % Neutrophils 55.4 % (42.2-75.2); Absolute Basophils 0.1 10^3/uL (0-0.2); Absolute Eosinophils 0.3 10^3/uL (0-0.7); Absolute Immature Granulocytes 0.1 10^3/uL (0-0.05); Absolute Lymphocytes 1.5 10^3/uL (1.2-3.4); Absolute Monocytes 0.8 10^3/uL (0.1-0.6); Absolute Neutrophils 3.4 10^3/uL (1.4-6.5); Nucleated Red Blood Cells % 0 % (-)
== END ==
LOC: OLABP 12:36
PROVIDERS: ATTENDING PHYSICIAN Family Medicine
DX: I25.10 Atherosclerotic heart disease of native coronary artery without angina pectoris (principal); B96.5 Pseudomonas (aeruginosa) (mallei) (pseudomallei) as the cause of diseases classified elsewhere; I77.6 Arteritis, unspecified; J96.01 Acute respiratory failure with hypoxia; K52.9 Noninfective gastroenteritis and colitis, unspecified; I48.0 Paroxysmal atrial fibrillation; I10 Essential (primary) hypertension; K72.90 Hepatic failure, unspecified without coma; E87.21 Acute metabolic acidosis; D62 Acute posthemorrhagic anemia; B18.2 Chronic viral hepatitis C; K83.1 Obstruction of bile duct; D72.829 Elevated white blood cell count, unspecified; Z94.4 Liver transplant status
CPT/HCPCS: 36415; 80053; 85025

== ENCOUNTER → 2024-06-05 09:28 | Outpatient (REF) | payer OTHER, MEDICARE, SELFPAY ==
[2024-06-05 10:16] LABS: % Basophils 1.8 % (0-2); % Eosinophils 6.8 % (0-6); % Lymphocytes 23.9 % (20.5-51.1); % Monocytes 14.1 % (1.7-9.3); % Neutrophils 52.4 % (42.2-75.2); Absolute Basophils 0.1 10^3/uL (0-0.2); Absolute Eosinophils 0.4 10^3/uL (0-0.7); Absolute Immature Granulocytes 0.1 10^3/uL (0-0.05); Absolute Lymphocytes 1.4 10^3/uL (1.2-3.4); Absolute Monocytes 0.9 10^3/uL (0.1-0.6); Absolute Neutrophils 3.2 10^3/uL (1.4-6.5); Hematocrit 30.9 % (39.0-52.0); Mean Corp Hgb Conc. 32.4 g/dL (33.0-37.0); Mean Corpuscular Hgb 32.1 pg (27.0-31.0); Mean Platelet Volume 13.5 fL (7.4-10.4); Nucleated Red Blood Cells % 0 % (-); Platelet Count 139 10^3/uL (130-400); Red Blood Cell Count 3.12 10^6/uL (4.70-6.10); Red Cell Dist. Width 17.2 % (11.5-14.5)
[2024-06-05 11:22] LABS: ALT (SGPT) < 10 U/L (0-50); AST (SGOT) 23 U/L (17-59); Alkaline Phosphatase 161 U/L (38-126); Blood Urea Nitrogen 16 mg/dl (9-20); Calcium 8.7 mg/dl (8.4-10.2); Carbon Dioxide 25 mmol/L (22-30); Chloride 107 mmol/L (98-107); Glucose 107 mg/dl (70-99); Sodium 141 mmol/L (135-145); Total Bilirubin 0.8 mg/dl (0.2-1.3); Total Protein 5.7 g/dl (6.3-8.2); eGFR > 60.00
== END ==
LOC: OLABP 09:28
PROVIDERS: ATTENDING PHYSICIAN Family Medicine
DX: I25.10 Atherosclerotic heart disease of native coronary artery without angina pectoris (principal); B96.5 Pseudomonas (aeruginosa) (mallei) (pseudomallei) as the cause of diseases classified elsewhere; I77.6 Arteritis, unspecified; J96.01 Acute respiratory failure with hypoxia; K52.9 Noninfective gastroenteritis and colitis, unspecified; I48.0 Paroxysmal atrial fibrillation; I10 Essential (primary) hypertension; K72.90 Hepatic failure, unspecified without coma; E87.21 Acute metabolic acidosis; D62 Acute posthemorrhagic anemia; K83.1 Obstruction of bile duct; Z94.4 Liver transplant status; J44.9 Chronic obstructive pulmonary disease, unspecified; G60.9 Hereditary and idiopathic neuropathy, unspecified; D72.829 Elevated white blood cell count, unspecified; B18.2 Chronic viral hepatitis C
CPT/HCPCS: 36415; 80053; 85025

== ENCOUNTER → 2024-06-09 11:13 | Outpatient (REF) | payer OTHER, MEDICARE, SELFPAY ==
[2024-06-09 12:22] LABS: Hematocrit 32.5 % (39.0-52.0); Hemoglobin 10.3 g/dL (13.0-18.0); Mean Corp Hgb Conc. 31.7 g/dL (33.0-37.0); Mean Corpuscular Hgb 31.7 pg (27.0-31.0); Mean Platelet Volume 13.5 fL (7.4-10.4); Platelet Count 145 10^3/uL (130-400); Red Blood Cell Count 3.25 10^6/uL (4.70-6.10); Red Cell Dist. Width 16.8 % (11.5-14.5)
[2024-06-09 12:23] LABS: % Basophils 1.2 % (0-2); % Eosinophils 5.2 % (0-6); % Lymphocytes 22.7 % (20.5-51.1); % Monocytes 14.5 % (1.7-9.3); % Neutrophils 55.4 % (42.2-75.2); Absolute Basophils 0.1 10^3/uL (0-0.2); Absolute Eosinophils 0.3 10^3/uL (0-0.7); Absolute Immature Granulocytes 0.1 10^3/uL (0-0.05); Absolute Lymphocytes 1.4 10^3/uL (1.2-3.4); Absolute Monocytes 0.9 10^3/uL (0.1-0.6); Absolute Neutrophils 3.3 10^3/uL (1.4-6.5); Nucleated Red Blood Cells % 0 % (-)
[2024-06-09 12:56] LABS: ALT (SGPT) < 10 U/L (0-50); AST (SGOT) 23 U/L (17-59); Albumin 3.1 g/dl (3.5-5.0); Alkaline Phosphatase 166 U/L (38-126); Blood Urea Nitrogen 15 mg/dl (9-20); Calcium 8.8 mg/dl (8.4-10.2); Carbon Dioxide 25 mmol/L (22-30); Chloride 109 mmol/L (98-107); Glucose 123 mg/dl (70-99); Potassium 3.7 mmol/L (3.5-5.1); Sodium 143 mmol/L (135-145); Total Protein 5.8 g/dl (6.3-8.2); eGFR > 60.00
== END ==
LOC: OLABP 11:13
PROVIDERS: ATTENDING PHYSICIAN Family Medicine
DX: I77.6 Arteritis, unspecified (principal); B96.5 Pseudomonas (aeruginosa) (mallei) (pseudomallei) as the cause of diseases classified elsewhere; J96.01 Acute respiratory failure with hypoxia; K52.9 Noninfective gastroenteritis and colitis, unspecified; I48.0 Paroxysmal atrial fibrillation; I10 Essential (primary) hypertension; I25.10 Atherosclerotic heart disease of native coronary artery without angina pectoris
CPT/HCPCS: 36415; 80053; 85025

== ENCOUNTER → 2024-06-13 11:14 | Outpatient (REF) | payer OTHER, MEDICARE, SELFPAY ==
[2024-06-13 12:06] LABS: Blood Urea Nitrogen 18 mg/dl (9-20); Calcium 8.4 mg/dl (8.4-10.2); Carbon Dioxide 26 mmol/L (22-30); Chloride 112 mmol/L (98-107); Glucose 122 mg/dl (70-99); Potassium 3.3 mmol/L (3.5-5.1); Sodium 145 mmol/L (135-145); eGFR > 60.00
== END ==
LOC: OLABP 11:14
PROVIDERS: ATTENDING PHYSICIAN Family Medicine
DX: I77.6 Arteritis, unspecified (principal); B96.5 Pseudomonas (aeruginosa) (mallei) (pseudomallei) as the cause of diseases classified elsewhere; J96.01 Acute respiratory failure with hypoxia; K52.9 Noninfective gastroenteritis and colitis, unspecified; I48.0 Paroxysmal atrial fibrillation; I10 Essential (primary) hypertension; I25.10 Atherosclerotic heart disease of native coronary artery without angina pectoris; K72.90 Hepatic failure, unspecified without coma; E87.21 Acute metabolic acidosis; D62 Acute posthemorrhagic anemia
CPT/HCPCS: 36415; 80048

== ENCOUNTER 2024-10-19 17:44 | Inpatient (IN) | payer MEDICARE, OTHER, SELFPAY ==
[2024-10-19 16:01] VITALS: BP 122/67
[2024-10-19 16:09] VITALS: BMI 28.2
--- NOTE | 2024-10-19 16:09 | ED.GENMED ---
History of Present Illness
General
Chief Complaint: Fall
Source: patient, records, previous radiology exam and previous hospital records
Exam Limitations: none
Time Seen by Provider: 10/19/24 15:58
Nursing documentation reviewed up to this point in time: agreed with
History of Present Illness
History of Present Illness:
74-year male transferred from [place] apparently had a fall as part of his workup he was found to have intra-abdominal abscess, he has had complex vascular surgery done here few months ago by Dr. Brannon the treating doctors there were in contact with
Dr. Brannon who suggested he come here to be admitted by the hospitalist, patient received analgesia and IV antibiotics after blood cultures at [place] prior records briefly reviewed patient was to be on lifelong suppression with Cipro after being
treated with ceftaz for bacteremia
Patient tells me had a fall few weeks ago woke up early in the morning with back pain and vomiting went to [place] to get seen
Past History
Past History
ED Past Medical History: CAD, HTN, [place] and Other (Liver transplant)
ED Past Surgical History: Other (liver transplant, AAA)
Social History
Tobacco: Smoker
Alcohol: Former
Drug: None
Personal:
Living: with family
Employment: Not employed
Family History
Family History: CAD and Other (Noncontributory)
Review of Systems
Review of Systems
All Other Systems: Not applicable
Phy Exam
Physical Exam
Physical Exam:
Physical Exam
General: no apparent distress, not acutely ill
Neck: No jaundice
Heart: s1/s2 regular rate and rhythm, no murmur. equal radial pulses.
Lungs: no acute respiratory distress. clear bilaterally
Abdomen: Nontender
Neuro: alert and oriented. no focal neurological deficits
Skin: no rash
Psychiatric: well kept. interactive and cooperative
Extremities: no edema.
Course
Orders/Labs/Results
Orders:
Orders
10/19/24 Dinner
2000 calorie (17 carb) Diabetic
At Your Request: Full Participation
10/19/24 16:01
Electrocardiogram (*1) Urgent
Reason for Study: Other
Other Reason for Exam: Possible Sepsis
EKG- Treatment ONCE
10/19/24 16:39
Complete Blood Count/With Diff Urgent
Comprehensive Metabolic Panel Urgent
Lactic Acid Q4H
Comment: ON ICE, CANCEL 2ND ORDER IF FIRST LACTIC ACID LEVEL <2
Prothrombin Time Urgent
10/19/24 17:17
Admit/Transfer Patient As Directed
Co-Sign Provider:
Level of Care: Inpatient admission
Assign to:: Telemetry
Physician / Group: [email or web address]
Diagnosis: Abn CT AP -concern for retroperitoneum and mary aortic site abscess ?
Reason for Telemetry: Arrhythmia
Date to Stop Telemetry: 10/22/24
Time to Stop Telemetry: 11:00
Reason for Hospitalization: Abn AP CT at OSH: Left retroperitoneum and mary aortic that could be concerning
for infection
Expected length of stay greater than two midnights?: Yes
ELOS- Estimated Length of Stay in days: 7
I certify the patient meets the requirements for IP care: Yes
10/19/24 17:23
Code Status As Directed
Resuscitation Status: Full Code
10/19/24 18:00
Blood Culture Q30M
KIMMY Source: Blood/Venous
Specimen Description:
Blood Culture Q30M
KIMMY Source: Blood/Venous
Specimen Description:
10/19/24 19:04
HYDROmorphone [Dilaudid] 0.5 mg IV Q4HPRN PRN
10/19/24 19:51
Acetaminophen [Tylenol] 650 mg PO Q4HPRN PRN
Bisacodyl [Dulcolax] 10 mg RECTAL [id number] PRN
Dextrose 50%-Water [Dextrose 50% Syringe] 12.5 grams IV [id number] PRN
Docusate W/Senna [Senokot-S] 1 tablet PO BIDPRN PRN
Glucagon [GlucaGen] 1 mg IM PRN PRN
Ondansetron Injectable [Zofran] 4 mg IV Q6HPRN PRN
Polyethylene Glycol Powder [Miralax] 17 grams PO DAILYPRN PRN
10/19/24 19:51
Activity As Directed
Activity Level: With Assistance
Bedside Glucose Monitoring As Directed
Frequency: AC&HS
Additional Instructions:: Change to q6h if pt on TPN, tube feeding or not eating
Intake/ Output As Directed
Frequency: Per unit guidelines
Vital Signs As Directed
Frequency: Per unit guidelines
Weight As Directed
Frequency: Daily
10/19/24 20:00
Apixaban [Eliquis] 5 mg PO BID
CEFTAZidime [Fortaz] 2,000 mg IV Q8H
Pantoprazole [Protonix] 40 mg PO BID
10/19/24 20:30
Pregabalin [Lyrica] 200 mg PO BID
10/19/24 21:00
Furosemide [Lasix] 40 mg PO DAILY
Tacrolimus [Prograf] 1.5 mg PO BID
10/20/24 07:00
Complete Blood Count/No Diff IN AM
Comprehensive Metabolic Panel IN AM
Glycohemoglobin (HgbA1c) IN AM
10/20/24 07:30
Insulin Aspart Corrective Low [Novolog Flexpen-Low Resistance] See Protocol SC AC
10/20/24 08:00
Amlodipine [Norvasc] 2.5 mg PO DAILY
Atorvastatin [Lipitor] 40 mg PO DAILY
Clopidogrel Bisulfate [Plavix] 75 mg PO DAILY
Dapagliflozin [Farxiga] 10 mg PO DAILY
Lisinopril [Zestril] 10 mg PO DAILY
10/22/24 11:00
DC Protocol for Telemetry ONCE
Abnormal Lab Results
10/19/24
16:39
RBC 3.39 L 10^6/uL
(4.70-6.10)
Hgb 10.3 L g/dL
(13.0-18.0)
Hct 30.9 L %
(39.0-52.0)
RDW 16.8 H %
(11.5-14.5)
MPV 12.5 H fL
(7.4-10.4)
Abs Immat Gran (auto) 0.1 H 10^3/uL
(0-0.05)
Absolute Monos (auto) 1.2 H 10^3/uL
(0.1-0.6)
Immature Gran % 1.1 H %
(0-0.5)
Lymphocytes % 13.5 L %
(20.5-51.1)
Monocytes % 13.1 H %
(1.7-9.3)
PT 19.8 H Sec
(11.4-14.6)
Chloride 109 H mmol/L
(98-107)
BUN 26 H mg/dl
(9-20)
Glucose 122 H mg/dl
(70-99)
Total Bilirubin 1.5 H mg/dl
(0.2-1.3)
Alkaline Phosphatase 269 H U/L
(38-126)
Albumin 3.3 L g/dl
(3.5-5.0)
10/19/24 16:39
10/19/24 16:39
Vital Signs
Initial and Last Documented VS:
Initial Vital Signs
Pulse Resp BP
64 15 122/67
10/19/24 16:01 10/19/24 16:01 10/19/24 16:01
Last Documented Vital Signs
Temp Pulse Resp BP Pulse Ox
98.2 F 82 16 131/70 94
10/21/24 11:35 10/21/24 11:35 10/21/24 11:35 10/21/24 11:35 10/21/24 11:35
*Pulse Oximetry
Patient hypoxic: no
*Critical Care Note
Total Time (30-74mins, 75-104mins- exclusive of procedures): Not Applicable
ED Attending Note
-
Portions of this chart may have been created with voice recognition software.� Occasional wrong word or��sound alike� substitutions may have occurred due to the inherent limitations of voice recognition software.
Discharge Plan
Departure
Patient Disposition: Admit
Date of Disposition: 10/19/24
Time of Disposition: 16:32
Admit to: Telemetry
Presentation/result/management discussed w/ accepting MD/DO: Hospitalist
Patient with high blood pressure during this ER visit?: No
Condition: Fair
Covid-19: Not Applicable
Discharge Problem:
Intra-abdominal abscess
Interventions
Interventions:
*Risk Screen - Suicide Last Done: 10/19/24 16:10
*General Assessment Last Done: 10/19/24 16:10
*Neglect/Abuse Screening Last Done: 10/19/24 16:10
*ED- Fall Risk Assessment Last Done: 10/19/24 16:10
*ED COVID-19 Vaccine History Last Done: 10/19/24 16:10
*Nursing Disposition Last Done: 10/19/24 19:55
ED-Musculoskeletal Assessment Last Done: 10/19/24 17:00
ED- Neurological Assessment Last Done: 10/19/24 17:00
ED-Skin Assessment Last Done: 10/19/24 17:00
Discharge Date and Time
Discharge Date/Time: 10/19/24 19:40
--- NOTE | 2024-10-19 16:50 | HPS.HSE ---
Family Physician
-
Family Physician: Odilia Velázquez
Chief Complaint
-
TF from [facility] ER to ER for Intraabdominal abscess
History of Present Illness
HPI
74M S/P ight axillary bifemoral bypass and explant of infected aortic endograft in April 2024 , POS virulent pseudomonas surgical Cx TF from [facility] ER to ER.
- he present to [facility] with right sided abd /flank pain
- at [facility] - CT AP shows left retroperitoneum and mary aortic that could be concerning for infection.
- Per [facility] ER - apparently had a fall as part of his workup he was found to have intra-abdominal abscess
- received analgesia and IV antibiotics after blood cultures at [place] prior records
- patient was to be on lifelong suppression with Cipro after being treated with ceftaz for bacteremia
Medical History
Past Medical History
Past Medical History: Reports Other (paroxysmal atrial fibrillation, CAD, PVCs, alcoholic cirrhosis, hepatitis C status post liver transplant in 2006 at [facility], multiple bile duct stents, abdominal aortic aneurysm repair and [facility],
hypertension, COPD,)
Past Surgical History: Reports Other (liver transplant, AAA))
Social History
Tobacco: Former Smoker
Alcohol: Occasional
Drug: None
Family History
Family History: Not pertinent
Allergies / Home Medications
Allergies reflects when Allergies were last updated in [facility].
Home Medications with original date entered in [facility]
Allergy/Medication List:
Allergies
Allergy/AdvReac Type Severity Reaction Status Date / Time
No Known Allergies Allergy Verified 04/25/24 08:53
Home Medications
calcium 500 mg (as carbonate)-vitamin D3 10 mcg (400 unit) tablet (Calcium 500 + D) 500 mg PO BID 11/30/13
tacrolimus 1 mg capsule, immediate-release 0.5 mg PO BID 06/19/15
tiotropium bromide 2.5 mcg/actuation mist for inhalation (Spiriva Respimat) 2 puff inhalation DAILY 10/10/19
apixaban 5 mg tablet (Eliquis) 5 mg PO BID #60 tabs 11/30/18
clopidogrel 75 mg tablet 75 mg PO DAILY #30 tabs 11/30/18
lisinopril 2.5 mg tablet 2.5 mg PO DAILY #30 tabs 11/30/18
metoprolol succinate 25 mg tablet,extended release 24 hr 25 mg PO DAILY #30 tabs 11/30/18
pantoprazole 40 mg tablet,delayed release 40 mg PO DAILY #30 tabs 11/30/18
albuterol sulfate 90 mcg/actuation aerosol inhaler 2 puff inhalation Q6HPRN PRN sob 04/25/24
atorvastatin 80 mg tablet 40 mg PO DAILY 04/25/24
fluticasone 100 mcg-salmeterol 50 mcg/dose blistr powdr for inhalation 2 inh inhalation BID 04/25/24
lisinopril 10 mg tablet 10 mg PO DAILY 04/25/24
magnesium oxide 420 mg tablet 420 mg PO BID 04/25/24
pregabalin 200 mg capsule 200 mg PO BID 04/25/24
therapeutic multivitamin 1 tab PO DAILY 04/25/24
Review of Systems
-
History Source: Patient
A 12 point ROS was completed and negative except as noted: Yes
Constitutional: Reports No Symptoms
EENT: Reports No Symptoms
Respiratory: Reports See HPI
Cardiac: Reports No Symptoms
Abdomen/GI: Reports See HPI
: Reports No Symptoms
Musculoskeletal: Reports No Symptoms
Skin: Reports No Symptoms
Neurological: Reports No Symptoms
Endocrine: Reports No Symptoms
Hematologic/Lymphatic: Reports No Symptoms
Psych: Reports No Symptoms
Physical Exam
Vital Signs
Vital Signs
Pulse Resp BP
64 15 122/67
10/19/24 16:01 10/19/24 16:01 10/19/24 16:01
Physical Exam
General: Well Developed, Well Nourished, No Apparent Distress, Comfortable, Conversant, Obese and Other (not toxic )
HEENT: NormoCephalic, Moist mucous membranes and Atraumatic
Respiratory: Clear
Cardiac: S1/S2 and Regular Rhythm; No Murmur or Rub
GI: Soft, Non Tender, Non Distended and Normal Bowel Sounds; No Organomegaly
Rectal: Deferred by Provider
Musculoskeletal: No Clubbing, No Cyanosis and No Edema
Skin: No Rash
Neuro: Nonfocal/grossly intact
Psych: Calm and Intact Judgment/Insight; No Confused
Laboratory Results
-
pending ER labs
Data Reviewed
-
CT Scan: Report Reviewed by me
Lab Data: Labs Reviewed by me
Old Records: Reviewed
Impression/Plan
-
Vital Signs
Pulse Resp BP
64 15 122/67
10/19/24 16:01 10/19/24 16:01 10/19/24 16:01
Relevant Data
06/09/24 06/13/24 10/19/24
06:30 06:00 16:39
WBC 6.0 8.9
Hgb 10.3 L 10.3 L
Plt Count 145 192
INR 1.66
Sodium 140
Potassium 4.1
Creatinine 1.0 1.1
eGFR > 60.00 > 60.00
Total Bilirubin 1.5 H
AST 28
ALT 19
Alkaline Phosphatase 269 H
Prior Micro data
- 04/30 BCX - NEG
- 05/02 BCX - NEG
- 05/01 tissue CX from the OR - Pseudomonas aeruginosa
EKG
SINUS RHYTHM WITH SINUS ARRHYTHMIA WITH 1ST DEGREE A-V BLOCK
POSSIBLE INFERIOR INFARCT (CITED ON OR BEFORE 19-Jun-2015)
ABNORMAL ECG
WHEN COMPARED WITH ECG OF 02-May-2024 10:37,
NO SIGNIFICANT CHANGE WAS FOUND
Last hospitalist admission:Date of Admission: 04/28/24 -Date of Discharge: 05/21/24
Principal Discharge diagnosis :
Abdominal pain
Sepsis secondary to a AAA stent graft infection along Pseudomonas bacteremia
s/p right axillary bifemoral arterial bypass due AAA stent graft infection
Acute hypoxemic respiratory failure secondary to deconditioning and atelectasis
Pleural effusion
CBD Mass
acute kidney injury
electrolyte abnormalities(hypokalemia, hypomagnesemia)
Lower extremity edema,
ASSESSMENT & PLAN
Pending Rx reconciliation
HX Liver TP
Immunosuppressed host
- on tacrolimus
- Outpatient follow-up follow-up with transplant hepatology at [facility]
Abn AP CT at OSH: Left retroperitoneum and mary aortic that could be concerning for infection per CT AP at [facility]
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
- 05/01 POS Pseudomonas bacteremia (4 sets) plus POS Pseudomonas aeruginosa tissue CX from the OR
- AAA stent graft infection with Pseudomonas
- remote hx AAA s/p aortobi-iliac stent graft (at [facility])
- on life rafael ABx suppression wiht Ciprofloxacin
- BCx sent at [facility] and IV ABx was given
- repeat BCx x 2 at ER
- Empiric resume empiric IV ceftazidime 2g IV q8h
- Hold off Lifelong suppressive therapy with cipro 500mg po bid.
- Vas consult
Biliary obstruction with intraluminal mass in CBD HX
- 05/16/24 CT C/A/P - No longer seen
HX Lower extremity edema
HX Vol overload
- on PO Lasix
- Compression treatment with NADEEM wrapping
- Follow weight, I/O, SOB, lower extremity swelling
HX Pleural effusion
-I Did not thoracentesis on 05/19 due finding volume insufficient for ultrasound-guided thoracentesis.
-DMT2
- Hold metformin 500 mg BID for now
- Januvia 100 mg daily
- Continue Farxiga 10mg daily
- add ISS low
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
ETOH and hep C cirrhosis status post liver transplant 2006, on tacrolimus
Paroxysmal AF on Eliquis
CAD
Hypertension
Neuropathy
COPD
Cholecystectomy
Back surgery
HX multiple bile duct stents
DVT Px: Eliquis
Full code
IP TLM
[2024-10-19 16:51] LABS: Hematocrit 30.9 % (39.0-52.0); Hemoglobin 10.3 g/dL (13.0-18.0); Mean Corp Hgb Conc. 33.3 g/dL (33.0-37.0); Mean Corpuscular Volume 91.2 fL (80.0-94.0); Nucleated Red Blood Cells % 0 % (-); Platelet Count 192 10^3/uL (130-400); Red Cell Dist. Width 16.8 % (11.5-14.5)
[2024-10-19 17:00] VITALS: BP 113/70
[2024-10-19 17:00] LABS: INR 1.66; PT 19.8 Sec (11.4-14.6)
[2024-10-19 17:07] LABS: ALT (SGPT) 19 U/L (0-50); AST (SGOT) 28 U/L (17-59); Albumin 3.3 g/dl (3.5-5.0); Alkaline Phosphatase 269 U/L (38-126); Blood Urea Nitrogen 26 mg/dl (9-20); Calcium 8.7 mg/dl (8.4-10.2); Carbon Dioxide 25 mmol/L (22-30); Chloride 109 mmol/L (98-107); Estimated Creatinine Clearance 64 ml/min; Glucose 122 mg/dl (70-99); Potassium 4.1 mmol/L (3.5-5.1); Sodium 140 mmol/L (135-145); Total Protein 6.3 g/dl (6.3-8.2); eGFR > 60.00
[2024-10-19 18:00] VITALS: BP 101/66
[2024-10-19 19:00] VITALS: BP 123/79
[2024-10-19] MEDS: DILAUDID 0.5 MG IV (19:20)
[2024-10-19 19:45] VITALS: BP 148/75; BMI 25.5
--- NOTE | 2024-10-19 20:30 | PTCARENOTE ---
Patient arrived from ED via stretcher, patient x1 from stretcher to bed. Patient aaox3, able to make needs known.
[2024-10-19] MEDS: ELIQUIS 5 MG PO (20:54)
[2024-10-19] MEDS: LASIX 40 MG PO (20:54)
[2024-10-19] MEDS: FORTAZ 2000 MG IV (20:54)
[2024-10-19] MEDS: LYRICA 200 MG PO (20:54)
[2024-10-19] MEDS: PROTONIX 40 MG PO (20:54)
[2024-10-19] MEDS: STERILE WATER FOR INJECTION 10 ML IV (20:54)
[2024-10-19] MEDS: PROGRAF 1.5 MG PO (20:54)
[2024-10-19 21:37] LABS: Glucose - Point of Care 102 mg/dl (70-99)
[2024-10-19 23:08] VITALS: BP 139/62
[2024-10-20] VITALS (7 sets, daily range): BP systolic 92–136; BP diastolic 47–68; BMI 25.6
[2024-10-20] MEDS: STERILE WATER FOR INJECTION 10 ML IV ×3 (03:33→19:07)
[2024-10-20] MEDS: FORTAZ 2000 MG IV ×3 (03:33→19:07)
[2024-10-20] MEDS: DILAUDID 0.5 MG IV ×5 (03:50→20:22)
[2024-10-20 07:02] LABS: Glucose - Point of Care 87 mg/dl (70-99)
[2024-10-20 07:29] LABS: Hematocrit 30.1 % (39.0-52.0); Hemoglobin 9.9 g/dL (13.0-18.0); Mean Corp Hgb Conc. 32.9 g/dL (33.0-37.0); Mean Corpuscular Volume 92.0 fL (80.0-94.0); Platelet Count 179 10^3/uL (130-400); Red Cell Dist. Width 16.7 % (11.5-14.5)
[2024-10-20] MEDS: NORVASC 2.5 MG PO (07:31)
[2024-10-20] MEDS: PLAVIX 75 MG PO (07:31)
[2024-10-20] MEDS: LYRICA 200 MG PO ×2 (07:31→19:08)
[2024-10-20] MEDS: ELIQUIS 5 MG PO ×2 (07:32→19:08)
[2024-10-20] MEDS: FARXIGA 10 MG PO (07:32)
[2024-10-20] MEDS: PROTONIX 40 MG PO ×2 (07:32→19:08)
[2024-10-20] MEDS: ZESTRIL 10 MG PO (07:32)
[2024-10-20] MEDS: LIPITOR 40 MG PO (07:32)
[2024-10-20 07:52] LABS: ALT (SGPT) 18 U/L (0-50); AST (SGOT) 26 U/L (17-59); Albumin 3.2 g/dl (3.5-5.0); Alkaline Phosphatase 270 U/L (38-126); Blood Urea Nitrogen 23 mg/dl (9-20); Calcium 8.3 mg/dl (8.4-10.2); Carbon Dioxide 25 mmol/L (22-30); Chloride 108 mmol/L (98-107); Estimated Creatinine Clearance 50 ml/min; Glucose 101 mg/dl (70-99); Potassium 4.0 mmol/L (3.5-5.1); Sodium 138 mmol/L (135-145); Total Protein 6.0 g/dl (6.3-8.2); eGFR 52.41
[2024-10-20] MEDS: LASIX PO (08:18)
[2024-10-20] MEDS: PROGRAF PO (08:19)
[2024-10-20] MEDS: PROGRAF 2 MG PO ×2 (08:20→19:08)
[2024-10-20] MEDS: TYLENOL 650 MG PO ×3 (10:04→22:51)
--- NOTE | 2024-10-20 10:54 | CM ---
CM reviewed chart. Met with pt at bedside. Explained role and discussed anticipated dc plan/options.
Pt is in [facility] apartment with his cat, w/4steps to enter. Iw/RW at baseline.
Does not currently drive.
Pt requested [facility] for SN/PT at dc, as he has worked with them in the past.
IA completed.
PCP: Odilia Velázquez
Pharm: [facility] in [place]
Pt will arrange his own transport at dc.
CM/SW will continue to follow to ensure a safe and timely discharge.
[2024-10-20 11:27] LABS: Glucose - Point of Care 118 mg/dl (70-99)
--- NOTE | 2024-10-20 13:07 | W.PN.HOSP.TC ---
Addendum entered and electronically signed by Bill Guzman DO 10/20/24 15:08:
I left a message for patient's daughter to try to obtain CT scan images on a disk from [facility].
Original Note:
Today's Communication/Plan
-
Obtain records from [facility]
ID consult
PT/OT
Vascular surgery consult
Assessment / Plan
Assessment / Plan
Gen-AAOx3, NAD
HEENT-NC, AT, anicteric, clear oral mm
Neck-supple
CV-reg, no M, +S1/S2
Lungs-clear B/L
Abd-soft, NT, ND
Ext-no edema
Musculoskeletal-no cyanosis, clubbing
Skin-warm and dry
Neuro-grossly non-focal
Psych-calm, cooperative
Abdominal fluid collection -apparently noted in the left retroperitoneal and periaortic area on CT scan done at [facility]. I do not have access to the films or the report.
Differential diagnosis of postoperative seroma versus abscess. Clinically patient does not look infected, nontoxic. WBC count is normal. Afebrile.
Vascular surgery's been consulted.
Records requested from [facility].
Blood cultures have been sent. Currently on empiric ceftazidime. Will get infectious disease input.
CHARISSE -creatinine up from 1.1 to 1.4 today. Hold lisinopril, furosemide. Rule out contrast nephropathy, unclear if he received IV contrast with recent CT scan in [facility]. Recheck labs in the morning.
Left ischial tuberosity fracture -suspect due to recent fall. Treat supportively. Consult PT/OT.
History of Pseudomonas bacteremia -April 2024. On chronic suppressive ciprofloxacin.
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
Underwent right axillary bifemoral arterial bypass with new ringed 05/01/2024 [facility].
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 Continue tacrolimus.
Essential hypertension -controlled.
Hyperlipidemia -atorvastatin.
DM2 without hyperglycemia -hemoglobin A1c pending. At home he is on empagliflozin, metformin.
In the hospital he is getting Farxiga and aspart low resistance corrective scale.
Paroxysmal atrial fibrillation -on Eliquis.
CAD -stable.
COPD without exacerbation -continue home inhalers.
Chronic anemia -hemoglobin appears to be at baseline.
Chronic peripheral neuropathy
Full code
Updated patient's daughter on the phone.
Anticipated Discharge: > 48 hours
Subjective/Interval History
-
Date of Service: October 20, 2024
Patient seen and examined. Complaining of lower back pain on the right side.
Objective Data
-
Labs:
Laboratory Results
10/20/24
07:00
WBC 7.6
Hgb 9.9 L
Hct 30.1 L
Plt Count 179
Sodium 138
Potassium 4.0
Chloride 108 H
Carbon Dioxide 25
BUN 23 H
Creatinine 1.4 H
Glucose 101 H
Calcium 8.3 L
Total Bilirubin 1.7 H
AST 26
ALT 18
Alkaline Phosphatase 270 H
Vital Signs:
Vital Signs
Temp Pulse Resp BP Pulse Ox
98.5 F 72 18 118/63 96
10/20/24 11:41 10/20/24 12:01 10/20/24 11:41 10/20/24 12:01 10/20/24 11:41
I&O
10/19/24 10/20/24 10/21/24
06:59 06:59 06:59
Intake Total 960 / 960
Output Total 740 / 740
Balance 220 / 220
Review of Systems
-
History Source: Patient
All other systems: Reviewed and negative
[2024-10-20 16:51] LABS: Glucose - Point of Care 145 mg/dl (70-99)
[2024-10-20] MEDS: MIRALAX 17 GRAMS PO (20:22)
[2024-10-20 21:17] LABS: Glucose - Point of Care 160 mg/dl (70-99)
[2024-10-21] VITALS (8 sets, daily range): BP systolic 109–147; BP diastolic 59–81; PULSE 93; O2SAT 96; BMI 26.0
[2024-10-21] MEDS: DILAUDID 0.5 MG IV ×6 (00:40→20:38)
[2024-10-21] MEDS: FORTAZ 2000 MG IV (04:39)
[2024-10-21] MEDS: STERILE WATER FOR INJECTION 10 ML IV (04:39)
[2024-10-21 06:57] LABS: Glucose - Point of Care 111 mg/dl (70-99)
[2024-10-21 07:31] LABS: ALT (SGPT) 17 U/L (0-50); AST (SGOT) 23 U/L (17-59); Albumin 3.1 g/dl (3.5-5.0); Alkaline Phosphatase 244 U/L (38-126); Blood Urea Nitrogen 28 mg/dl (9-20); Calcium 8.6 mg/dl (8.4-10.2); Carbon Dioxide 25 mmol/L (22-30); Chloride 107 mmol/L (98-107); Estimated Creatinine Clearance 39 ml/min; Glucose 116 mg/dl (70-99); Potassium 4.1 mmol/L (3.5-5.1); Sodium 138 mmol/L (135-145); Total Protein 6.0 g/dl (6.3-8.2); eGFR 38.77
[2024-10-21] MEDS: ZOFRAN 4 MG IV (07:44)
--- NOTE | 2024-10-21 07:56 | PTCARENOTE ---
Reached out to hospitalist through TT for one time pain medication order on behalf of patient. It is too soon to give PRN dilaudid again. Pt's vital signs are within normal limits, but he is doubled over in abdominal pain. Awaiting orders.
--- NOTE | 2024-10-21 08:24 | W.PN.HOSP.TC ---
Today's Communication/Plan
-
Spinal x-rays
Stop amlodipine
Stop antibiotics
Urinalysis
Bladder scan
Obtain records
ID consult
Vascular surgery consult
Assessment / Plan
Assessment / Plan
Gen-AAOx3, NAD
HEENT-NC, AT, anicteric, clear oral mm
Neck-supple
CV-reg, no M, +S1/S2
Lungs-clear B/L
Abd-soft, NT, ND
Ext-no edema
Musculoskeletal-no cyanosis, clubbing, mild tenderness over right lateral lumbar musculoskeletal region
Skin-warm and dry
Neuro-grossly non-focal
Psych-calm, cooperative
Abdominal fluid collection -apparently noted in the left retroperitoneal and periaortic area on CT scan done at [facility]. I do not have access to the films or the report.
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
Differential diagnosis of postoperative seroma versus abscess. Clinically patient does not look infected, nontoxic. WBC count is normal. Afebrile.
Vascular surgery's been consulted.
Blood cultures have been sent. Hold further antibiotics, await ID input.
CHARISSE -creatinine up from 1.1 to 1.8 today. Hold lisinopril, furosemide. Concern for possible contrast-induced nephropathy, reportedly had CT with contrast and [facility] on 10/19, I am still awaiting records.
Check urinalysis, bladder scan.
Left ischial tuberosity fracture -suspect due to recent fall. Treat supportively. Consult PT/OT.
History of Pseudomonas bacteremia -April 2024. On chronic suppressive ciprofloxacin.
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
Underwent right axillary bifemoral arterial bypass with new ringed 05/01/2024 [facility].
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 Continue tacrolimus.
Essential hypertension -controlled. Stop amlodipine given relative hypotension.
Hyperlipidemia -atorvastatin.
DM2 without hyperglycemia -hemoglobin A1c pending. At home he is on empagliflozin, metformin.
In the hospital he is getting Farxiga and aspart low resistance corrective scale.
Glucose 116 this morning, 160 last night.
Paroxysmal atrial fibrillation -on Eliquis.
CAD -stable.
COPD without exacerbation -continue home inhalers.
Chronic anemia -hemoglobin appears to be at baseline.
Chronic peripheral neuropathy
Full code
Anticipated Discharge: > 48 hours
Subjective/Interval History
-
Date of Service: October 21, 2024
Patient seen and examined, complaining of severe right lower back pain, mild abdominal pain and nausea.
Objective Data
-
Labs:
Laboratory Results
10/21/24
06:34
Sodium 138
Potassium 4.1
Chloride 107
Carbon Dioxide 25
BUN 28 H
Creatinine 1.8 H
Glucose 116 H
Calcium 8.6
Total Bilirubin 1.3
AST 23
ALT 17
Alkaline Phosphatase 244 H
Vital Signs:
Vital Signs
Temp Pulse Resp BP Pulse Ox
98.9 F 72 17 109/73 95
10/21/24 03:00 10/21/24 03:00 10/21/24 03:00 10/21/24 03:00 10/21/24 03:00
I&O
10/20/24 10/21/24 10/22/24
06:59 06:59 06:59
Intake Total 960 / 960
Output Total 740 / 740 50 / 50
Balance 220 / 220 -50 / -50
Review of Systems
-
History Source: Patient
All other systems: Reviewed and negative
[2024-10-21] MEDS: ELIQUIS 5 MG PO ×2 (08:37→20:20)
[2024-10-21] MEDS: LYRICA 200 MG PO ×2 (08:37→20:18)
[2024-10-21] MEDS: FARXIGA 10 MG PO (08:37)
[2024-10-21] MEDS: PROTONIX 40 MG PO ×2 (08:37→20:18)
[2024-10-21] MEDS: PLAVIX 75 MG PO (08:37)
[2024-10-21] MEDS: PROGRAF 2 MG PO ×2 (08:37→20:18)
[2024-10-21 08:38] LABS: Glycohemoglobin (HgbA1c) 5.7 % (4.0-5.6)
[2024-10-21] MEDS: LIPITOR 40 MG PO (08:38)
[2024-10-21] MEDS: NORVASC PO (08:41)
[2024-10-21 08:54] LABS: Urine Character Clear (Clear)
[2024-10-21 09:03] LABS: Urine Red Blood Cell 0-2 /HPF (0-2); Urine White Cell 0-2 /HPF (0-5)
--- NOTE | 2024-10-21 09:43 | CON.ID ---
Consultation
-
Date/Time Consultation Requested: October 20, 2024
Date/Time Consultation Performed: October 21, 2024
Requesting Provider: Dr. Bill Guzman
Performing Provider: Dr. Olivia Hartley
Reason for Consultation: Intra-abdominal abscess
Chief Complaint / Past History
Chief Complaint
CT showed infection around previous graft
History of Present Illness
73-year-old male known to me with history of liver transplant on tacrolimus, CAD, A-fib on Eliquis, history of abdominal aortic aneurysm repair with aorto by iliac stent graft infected with Pseudomonas s/p explant, R axillary-bifem bypass (04/2024)
on cipro chronic suppression who was transferred from [facility] ER to on 10/19 for reported intraabdominal abscess. Patient reports he stepped back from the scale and accidentally fell landing on his bottom. He then developed acute on chronic mid
lower back pain and abd pain for which he presented to [facility] October 19. Afebrile. UA negative nitrite, negative leukocyte Estrace. Blood cultures x 2 [address] CTA showed locule of gas in the left periaortic region and a separate
crescent-shaped dependent fluid collection in the left retroperitoneum, acute fracture of the left ischial tuberosity. He received vancomycin and Zosyn in the ER then transferred to [facility]. He was started on ceftazidime and which was
discontinued today. Patient reports he is compliant with th daily Cipro. No recent fevers or chills. Appetite is good.
Past History
Additional Past Medical History:
AAA [id number] stent graft infection with Pseudomonas s/p Right axillary bifemoral artery bypass with new ringed [place] graft ; explant of entirety of infected aortic endograft, wide debridement of retroperitoneum (05/01/24) s/p 6 weeks of
ceftazidime followed by cipro 500mg daily suppression. .
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
Paroxysmal atrial fibrillation
CAD
Hypertension
Neuropathy
COPD
Cholecystectomy
Back surgery
History of multiple bile duct stents
Allergy History:
No Known Allergies Allergy (Verified 10/19/24 16:02)
Medications Reviewed: Yes
Current Antibiotics:
Zosyn d4
Social History
Tobacco: Former Smoker
Alcohol: Occasional
Drug: None
Family History
Family History: Not Pertinent
Review of Systems
Review of Systems
General: Negative Fever, Chills or Change in Appetite
HEENT: Negative Sinus Problems or Headache
Cardiovascular: Negative Chest Pain or Dyspnea
Respiratory: Negative Dyspnea or Cough
Gasteroenterology: Nausea; Negative Vomiting or Diarrhea
Genital / Urological: Negative Dysuria or Flank Pain
Endocrine: Negative Weakness
Skin / Hair / Nails: Negative Rash
Neurological: Negative Dizziness
All systems: All other systems were reviewed and were negative
Vital Signs
Temp Pulse Resp BP Pulse Ox
98.1 F 76 16 147/77 94
10/21/24 09:30 10/21/24 09:30 10/21/24 09:30 10/21/24 09:30 10/21/24 09:30
Physical Exam
Physical Exam
Constitutional: No Acute Distress and Comfortable
Head: Other (No frontal or max or sinus tenderness)
Eyes: No Conjunctival Hemorrhage and Sclera Anicteric
Cardiovascular: Regular Rate and S1/S2
Pulmonary: Clear
Gastrointestinal: Soft, Non Tender, Non Distended and Normal Bowel Sounds
Genito-Urinary: Negative CVA Tenderness
Extremities: Negative Edema
Neurological: AO x 3
Lab / Diagnostic Study Results
10/20/24 07:00
10/21/24 06:34
Abs Immat Gran (auto) 0.1 10^3/uL (0-0.05) H 10/19/24 16:39
Absolute Neuts (auto) 6.3 10^3/uL (1.4-6.5) 10/19/24 16:39
Absolute Lymphs (auto) 1.2 10^3/uL (1.2-3.4) 10/19/24 16:39
Absolute Monos (auto) 1.2 10^3/uL (0.1-0.6) H 10/19/24 16:39
Absolute Basos (auto) 0.0 10^3/uL (0-0.2) 10/19/24 16:39
Immature Gran % 1.1 % (0-0.5) H 10/19/24 16:39
Neutrophils % 70.4 % (42.2-75.2) 10/19/24 16:39
Lymphocytes % 13.5 % (20.5-51.1) L 10/19/24 16:39
Monocytes % 13.1 % (1.7-9.3) H 10/19/24 16:39
Eosinophils % 1.5 % (0-6) 10/19/24 16:39
Basophils % 0.4 % (0-2) 10/19/24 16:39
PT 19.8 Sec (11.4-14.6) H 10/19/24 16:39
INR 1.66 10/19/24 16:39
Lactic Acid Cancelled 10/19/24 20:15
Urine WBC 0-2 /HPF (0-5) 10/21/24 08:42
Ur Squamous Epith Cells 3-5 /LPF (Few) 10/21/24 08:42
Microbiology Results
Micro:
10/19/24 18:00 Blood Culture - Preliminary
Blood/Venous No Growth in 24 hours- Final report to follow
10/19/24 18:00 Blood Culture - Preliminary
Blood/Venous No Growth in 24 hours- Final report to follow
[facility] 10/19/24 CT angiogram of a/p: Status post right axillofemoral and femoral�femoral bypass grafting with patent grafts. Postop changes surrounding the mid and caudal abdominal aorta are present with fat stranding and inflammation. A question
locule of gas is present adjacent to left periaortic region. . There is a separate but new crescent-shape dependent collection along the left retroperitoneum laterally which could represent abscess in the correct clinical setting. An acute
fracture of the left ischial tuberosity is present. Chronic pneumobilia improved from prior CAT scan.
Assessment / Plan
# Left retroperitoneal fluid collection
# s/p fall with acute left ischial tuberosity fracture
- ?hematoma post fall, pt on anticoagulation
- Consider IR aspiration of fluid or culture
# Incidental finding of small locule of gas in left mary-aortic region
# Recent hx AAA stent graft infection with Pseudomonas s/p explant s/p Right axillary - bifem bypass (04/2024) s/p 6 weeks IV ceftazidime followed by chronic suppression with cipro
- No mary-aortic fluid collection.
- Await vascular to review CT
- Follow outside blood cx's. Blood cx's here neg to date.
-Resume cipro 500mg po daily chronic suppression.
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
Paroxysmal atrial fibrillation
CAD
Hypertension
Neuropathy
COPD
AAA s/p remote hx of aortobi-iliac stent graft (at [facility]) complicated by Pseudomonas infection s/p explant (05/01/2024)
Right axillary bifemoral artery bypass with ringed [place] graft (05/01/2024)
Cholecystectomy
Back surgery
History of multiple bile duct stents
--- NOTE | 2024-10-21 11:01 | CM ---
Reviewed the chart notes and spoke with the patient at the bedside. Patient requested referral be sent to [facility]. Per patient, they were to start him this week. CM continues to be available to patient/family and is monitoring medical plan for
needs at discharge.
Plan: Discharge to home with [facility]. Referral sent in [facility].
--- NOTE | 2024-10-21 11:39 | CON.VAS ---
Addendum entered and electronically signed by Gamaliel Vaughn III, MD 10/21/24 19:56:
This patient was seen and examined in collaboration with Garima Wilkerson MD, PGY1. I agree with the history and physical exam as well as the assessment and plan. I have the following additions:
Known to Dr. Brannon following explant of infected aortic stent graft along with ax bi fem bypass.
He is on chronic antibiotic suppression with a fluoroquinolone
History of OLTxp
Chronic back pain
Recent fall with evaluation at [facility]
Currently his main complaint is low back pain
Denies abdominal pain
On physical exam he is nontoxic-appearing
Abdomen is soft nontender
CT of the abdomen pelvis was personally reviewed. Radiology report reviewed. There is a poorly defined area surrounding the infrarenal aortic stump which certainly could just be post-operative changes after stent graft explant and aortic stump
ligation. No clear fluid collection. The reported foci of gas does not appear to be that on lung windows. A crescent shaped fluid collection is seen extending inferolaterally towards the left retroperitoneum. No air is identified within this
fluid collection but on coronal reconstructions it does appear to track towards the aortic stump and may communicate with this
Discussed CT findings with Dr. Hartley from infectious disease. Could sample fluid collection under the left flank musculature to evaluate for infection but I would not attempt aspiration near the aortic stump. It is reassuring that he looks well
clinically. Continue antibiotics. We will follow. Call with questions or concerns
Signed:
Gamaliel Vaughn III, MD
Vascular Surgery
[facility]
Original Note:
Consultation
Consultation Request
Date/Time Consultation Performed: 10/21/2024
Performing Provider: Gamaliel Vaughn
Medical History
-
Chief Complaint: abdominal pain, back pain
History of Present Illness:
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
abdominal pain. Patient presented to [place] with right sided abdominal/flank pain yesterday 10/20/2024. At [facility], patient had a CT AP that showed possible left retroperitoneum and mary aortic findings that could be concerning for infection, although
we do not have have the imaging yet to review. Patient was started on ceftazidime and analgesia. [facility] records still pending.
Past Medical History
Past Medical History: Arrhythmias, COPD and HTN
Allergies / Home Medications
Allergy/AdvReac Type Severity Reaction Status Date / Time
No Known Allergies Allergy Verified 10/19/24 16:02
�Medication �Instructions �Recorded �Confirmed �Type
apixaban 5 mg tablet (Eliquis) 5 mg PO BID #60 tabs 11/30/18 10/19/24 Rx
clopidogrel 75 mg tablet 75 mg PO DAILY #30 tabs 11/30/18 10/19/24 Rx
albuterol sulfate 90 mcg/actuation 2 puff inhalation R Q6HPRN PRN sob 04/25/24 10/19/24 History
aerosol inhaler
amlodipine 2.5 mg tablet 2.5 mg PO DAILY Blood Pressure 04/25/24 10/19/24 History
atorvastatin 80 mg tablet 40 mg PO DAILY High Cholesterol 04/25/24 10/19/24 History
lisinopril 10 mg tablet 10 mg PO DAILY Blood Pressure 04/25/24 10/19/24 History
metformin 500 mg tablet 500 mg PO DAILY Diabetes 04/25/24 10/19/24 History
metoprolol succinate 100 mg 50 mg PO DAILY Heart 04/25/24 10/19/24 History
tablet,extended release 24 hr Disease/Condition
pregabalin 200 mg capsule 200 mg PO BID Pain 04/25/24 10/19/24 History
tacrolimus 0.5 mg capsule, 2 mg PO BID Transplant 04/25/24 10/20/24 History
immediate-release
therapeutic multivitamin 1 tab PO DAILY Supplement 04/25/24 10/19/24 History
pantoprazole 40 mg tablet,delayed 40 mg PO BID Gastrointestinal Issue 05/02/24 10/19/24 History
release (Protonix)
tiotropium bromide 2.5 2 puff inhalation DAILY 05/02/24 10/19/24 History
mcg/actuation mist for inhalation Lung/Breathing Issues
ciprofloxacin HCl 500 mg tablet 500 mg PO DAILY Infection 10/19/24 10/19/24 History
empagliflozin 25 mg tablet 25 mg PO DAILY Diabetes 10/19/24 10/19/24 History
fluticasone 100 mcg-salmeterol 50 1 inh inhalation BID 10/19/24 10/19/24 History
mcg/dose blistr powdr for Lung/Breathing Issues
inhalation (Advair Diskus)
furosemide 40 mg tablet 40 mg PO DAILY Fluid 10/19/24 10/19/24 History
Retention/Swelling
magnesium oxide 400 mg PO BID Supplement 10/19/24 10/19/24 History
Review of Systems
-
History Source: Patient
Constitutional: Reports No Symptoms
Respiratory: Reports No Symptoms
Cardiac: Reports No Symptoms
Abdomen/GI: Reports Abdominal Pain, Nausea and Vomiting
: Reports Flank Pain
Musculoskeletal: Reports Other (lower back pain)
Skin: Reports No Symptoms
Neurological: Reports No Symptoms
Physical Exam
Vital Signs
Temp Pulse Resp BP Pulse Ox
98.1 F 76 16 147/77 94
10/21/24 09:30 10/21/24 09:30 10/21/24 09:30 10/21/24 09:30 10/21/24 09:30
Lab Results
10/20/24 07:00
10/21/24 06:34
Physical Exam
General: No Apparent Distress
Neuro: AO x 3
Psych: Calm
Assessment / Plan
-
[facility] records still pending.
Will hold off on repeat imaging given Cr of 1.8 today.
[2024-10-21 11:43] LABS: Glucose - Point of Care 113 mg/dl (70-99)
[2024-10-21] MEDS: MIRALAX 17 GRAMS PO (14:44)
[2024-10-21 16:32] LABS: Glucose - Point of Care 137 mg/dl (70-99)
[2024-10-21 21:39] LABS: Glucose - Point of Care 118 mg/dl (70-99)
[2024-10-22] VITALS (13 sets, daily range): BP systolic 69–178; BP diastolic 63–78; PULSE 77; O2SAT 98; BMI 25.7
[2024-10-22] MEDS: DILAUDID 0.5 MG IV ×5 (01:42→21:45)
[2024-10-22] MEDS: SENOKOT-S 1 TABLET PO ×2 (05:26→19:40)
[2024-10-22 06:02] LABS: Hematocrit 28.4 % (39.0-52.0); Hemoglobin 9.5 g/dL (13.0-18.0); Mean Corp Hgb Conc. 33.5 g/dL (33.0-37.0); Mean Corpuscular Volume 90.4 fL (80.0-94.0); Nucleated Red Blood Cells % 0 % (-); Platelet Count 172 10^3/uL (130-400); Red Cell Dist. Width 16.0 % (11.5-14.5)
[2024-10-22 06:26] LABS: Blood Urea Nitrogen 23 mg/dl (9-20); Calcium 8.6 mg/dl (8.4-10.2); Carbon Dioxide 22 mmol/L (22-30); Chloride 109 mmol/L (98-107); Estimated Creatinine Clearance 50 ml/min; Glucose 103 mg/dl (70-99); Potassium 4.0 mmol/L (3.5-5.1); Sodium 136 mmol/L (135-145); eGFR 52.41
[2024-10-22 07:45] LABS: Glucose - Point of Care 110 mg/dl (70-99)
[2024-10-22] MEDS: LIPITOR 40 MG PO (08:01)
[2024-10-22] MEDS: CIPRO 500 MG PO (08:02)
[2024-10-22] MEDS: PLAVIX 75 MG PO (08:02)
[2024-10-22] MEDS: LYRICA 200 MG PO ×2 (08:02→19:40)
[2024-10-22] MEDS: PROGRAF 2 MG PO ×2 (08:02→19:40)
[2024-10-22] MEDS: FARXIGA 10 MG PO (08:02)
[2024-10-22] MEDS: PROTONIX 40 MG PO ×2 (08:02→19:40)
[2024-10-22] MEDS: ELIQUIS 5 MG PO ×2 (08:02→19:40)
[2024-10-22] MEDS: FLUSH (NSS) 1 FLUSH IV (08:11)
--- NOTE | 2024-10-22 08:35 | W.PN.VS ---
Addendum entered and electronically signed by Willis Brannon MD 10/22/24 15:46:
Seen and examined with [employer] earlier this a.m. This is a late entry. When I saw him he was very comfortable and noted minimal if it all back pain. He noted that his pain was on the right side of his back and in the center of the lower back. No
fevers or chills. No lethargy. His exam was benign with right chest wall incision fully healed. Flat. No redness. Groins flat, no redness. Abdomen soft, nondistended, nontender. Feet warm.
CT scan reviewed. Patent axillary bifemoral bypass with no evidence of infection. His retroperitoneum with just postoperative changes consistent with surgery that he had performed (I resected his infected aorta and debrided the retroperitoneum).
No obvious signs of infection. There was a note of gas in the soft tissues, but this does not appear to be any gas or air but rather a plane between 2 fluid pockets.
Plan/I do not think that his pain is emanating from the aortic bed. His aorta infection was already cleaned out surgically. Would investigate for other causes of back pain as well. No other signs or sequela of infection. Note he does have a
complex history including history of liver transplant on immunosuppression.
Original Note:
Today's Communication / Plan
-
Patient seen and examined at bedside with Dr. Willis Brannon, below plan reviewed with attending.
Assessment/Plan
-
Assessment: 74 year old male s/p explant of infected aortic stent graft along with ax bi fem bypass presented to [facility] s/p fall with CT ABD/pelvis demonstrating possible RP collection
Plan:
Collection could represent non concerning postoperative changes, appreciate ID recommendations, patient remains afebrile, non-toxic appearing, and without rise in WBC.
Could consider aspiration of fluid at left flank musculature by IR but would not attempt fluid sampling around aortic stump
PRN pain medication for chronic back pain
Subjective Data
-
Date of Service: October 22, 2024
Patient seen and examined chair side, reports improvement in lower back back pain. Does endorse chronic back pain, per patient he was told his lower back is 'crushed.' He notes he has been managing lower back pain for years, well prior to aortic
explant. Denies ABD pain. Reports he is more comfortable now then when he presented to ED at [place]. Denies fever and chills.
Objective Data
-
Vital Signs
Temp Pulse Resp BP Pulse Ox
99 F 88 18 128/78 95
10/22/24 07:30 10/22/24 07:30 10/22/24 07:30 10/22/24 07:30 10/22/24 07:30
Intake and Output
10/21/24 10/22/24 10/23/24
06:59 06:59 06:59
Intake Total 1324 / 1324
Output Total 50 / 50 255 / 255
Balance -50 / -50 1069 / 1069
Intake:
Oral fluids 1324 / 1324
IV fluids (Total) 0 / 0
IV piggybacks 0 / 0
Output:
Urine, Voided 50 / 50 255 / 255
Other:
Number of approximated MODERATE 1 2
amounts of urine
Lab Results
10/22/24 05:45
10/22/24 05:45
Calcium 8.6 mg/dl (8.4-10.2) 10/22/24 05:45
Total Bilirubin 1.3 mg/dl (0.2-1.3) 10/21/24 06:34
AST 23 U/L (17-59) 10/21/24 06:34
ALT 17 U/L (0-50) 10/21/24 06:34
Alkaline Phosphatase 244 U/L (38-126) H 10/21/24 06:34
Total Protein 6.0 g/dl (6.3-8.2) L 10/21/24 06:34
Albumin 3.1 g/dl (3.5-5.0) L 10/21/24 06:34
Physical Exam
-
No apparent distress, resting in chair comfortably
No tachycardia
No dyspnea on room air
ABD non-tender, non-distended
--- NOTE | 2024-10-22 08:55 | W.PN.HOSP.TC ---
Today's Communication/Plan
-
IR consult
Increase bowel regimen
Assessment / Plan
Assessment / Plan
Gen-AAOx3, NAD
HEENT-NC, AT, anicteric, clear oral mm
Neck-supple
CV-reg, no M, +S1/S2
Lungs-clear B/L
Abd-soft, NT, ND
Ext-no edema
Musculoskeletal-no cyanosis, clubbing, mild tenderness over right lateral lumbar musculoskeletal region
Skin-warm and dry
Neuro-grossly non-focal
Psych-calm, cooperative
Abdominal fluid collection -appreciate vascular surgery input.
Blood cultures negative so far.
Consult IR for possible aspiration of fluid collection under the left flank musculature. Currently on Eliquis and Plavix, IR to comment on whether we need to hold.
CHARISSE -creatinine now trending down, 1.4. Hold lisinopril, furosemide. Suspect CHARISSE related to contrast-induced nephropathy. Urinalysis with 1+ albumin otherwise bland. Bladder scan with 180 cc.
Left ischial tuberosity fracture -suspect due to recent fall. Treat supportively. PT recommends home health.
History of Pseudomonas bacteremia -April 2024. On chronic suppressive ciprofloxacin.
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
Underwent right axillary bifemoral arterial bypass with new ringed 05/01/2024 [facility].
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 Continue tacrolimus.
Essential hypertension -controlled. Stopped amlodipine given relative hypotension. Blood pressure improved.
Hyperlipidemia -atorvastatin.
DM2 without hyperglycemia -hemoglobin A1c 5.7%. At home he is on empagliflozin, metformin.
In the hospital he is getting Farxiga and aspart low resistance corrective scale.
Glucose 103 this morning, 118 last night.
Paroxysmal atrial fibrillation -on Eliquis.
CAD -stable.
COPD without exacerbation -continue home inhalers.
Chronic anemia -hemoglobin appears to be at baseline.
Chronic peripheral neuropathy
Full code
Anticipated Discharge: 24 - 48 hours
Subjective/Interval History
-
Date of Service: October 22, 2024
Patient seen and examined. No new complaints. Is constipated.
Objective Data
-
Labs:
Laboratory Results
10/22/24
05:45
WBC 7.4
Hgb 9.5 L
Hct 28.4 L
Plt Count 172
Sodium 136
Potassium 4.0
Chloride 109 H
Carbon Dioxide 22
BUN 23 H
Creatinine 1.4 H
Glucose 103 H
Calcium 8.6
Vital Signs:
Vital Signs
Temp Pulse Resp BP Pulse Ox
99 F 88 18 128/78 95
10/22/24 07:30 10/22/24 07:30 10/22/24 07:30 10/22/24 07:30 10/22/24 07:30
I&O
10/21/24 10/22/24 10/23/24
06:59 06:59 06:59
Intake Total 1324 / 1324
Output Total 50 / 50 255 / 255
Balance -50 / -50 1069 / 1069
Review of Systems
-
History Source: Patient
All other systems: Reviewed and negative
--- NOTE | 2024-10-22 09:18 | CM ---
Reviewed the chart notes. CM continues to be available to patient/family and is monitoring medical plan for needs at discharge.
Plan: Discharge to home with Dory BECERRA when medically stable.
Dory BECERRA
[2024-10-22] MEDS: MIRALAX 17 GRAMS PO (09:58)
--- NOTE | 2024-10-22 11:29 | W.PN.ID1 ---
Date of Service
Date of Service: October 22, 2024
Today's Communication
IR aspiration for cx.
Assessment / Plan
# Left retroperitoneal fluid collection
# s/p fall with acute left ischial tuberosity fracture
- ?hematoma post fall, pt on anticoagulation
- IR aspiration of fluid - culture ordered
# Incidental finding of small locule of gas in left mary-aortic region
# Recent hx AAA stent graft infection with Pseudomonas s/p explant s/p Right axillary - bifem bypass (04/2024) s/p 6 weeks IV ceftazidime followed by chronic suppression with cipro
- No mary-aortic fluid collection.
- Per Vascular - locule of 'gas' not significant
- Blood cx's here neg to date.
- Continue lifelong cipro 500mg po daily chronic suppression.
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
Paroxysmal atrial fibrillation
CAD
Hypertension
Neuropathy
COPD
AAA s/p remote hx of aortobi-iliac stent graft (at [facility]) complicated by Pseudomonas infection s/p explant (05/01/2024)
Right axillary bifemoral artery bypass with ringed [place] graft (05/01/2024)
Cholecystectomy
Back surgery
History of multiple bile duct stents
Chief Complaint
-: Other
Subjective / Review of Systems
No complaints today. Feels well.
Vital Signs / Physical Exam
Vital Signs
Vital Signs
Temp Pulse Resp BP Pulse Ox
99 F 88 18 128/78 95
10/22/24 07:30 10/22/24 07:30 10/22/24 07:30 10/22/24 07:30 10/22/24 07:30
Physical Exam
Constitutional: No Acute Distress and Comfortable
Cardiovascular: Regular Rate and S3/S4
Genito-Urinary: Negative CVA Tenderness
Extremities: Negative Edema
Neurological: AO x 3
Objective Data
Lab Data
Lab Results
10/22/24 05:45
10/22/24 05:45
PT 19.8 Sec (11.4-14.6) H 10/19/24 16:39
INR 1.66 10/19/24 16:39
Estimated Creat Clear 50 ml/min 10/22/24 05:45
Lactic Acid Cancelled 10/19/24 20:15
Total Bilirubin 1.3 mg/dl (0.2-1.3) 10/21/24 06:34
AST 23 U/L (17-59) 10/21/24 06:34
ALT 17 U/L (0-50) 10/21/24 06:34
Alkaline Phosphatase 244 U/L (38-126) H 10/21/24 06:34
Most recent labs reviewed.
Micro Results:
10/19/24 18:00 Blood Culture - Preliminary
Blood/Venous No Growth in 48 hours- Final report to follow
10/19/24 18:00 Blood Culture - Preliminary
Blood/Venous No Growth in 48 hours- Final report to follow
[facility] 10/19/24 CT angiogram of a/p: Status post right axillofemoral and femoral�femoral bypass grafting with patent grafts. Postop changes surrounding the mid and caudal abdominal aorta are present with fat stranding and inflammation. A question
locule of gas is present adjacent to left periaortic region. . There is a separate but new crescent-shape dependent collection along the left retroperitoneum laterally which could represent abscess in the correct clinical setting. An acute
fracture of the left ischial tuberosity is present. Chronic pneumobilia improved from prior CAT scan.
Care Review
Plan reviewed with: Physician (Dr. Guzman)
[2024-10-22 11:42] LABS: Glucose - Point of Care 143 mg/dl (70-99)
[2024-10-22] MEDS: FLUSH (NSS) 2 FLUSH IV (12:35)
--- NOTE | 2024-10-22 18:59 | W.PN.IRAD.PR ---
Procedure Note
-
Left retroperitoneal collection aspirated under CT guidance with return of 250cc thin yellow fluid, not grossly purulent. Sample sent for microbiology.
[2024-10-22 19:50] LABS: Glucose - Point of Care 143 mg/dl (70-99)
[2024-10-22 21:37] LABS: Glucose - Point of Care 139 mg/dl (70-99)
[2024-10-23] MEDS: DILAUDID 0.5 MG IV ×2 (02:02→06:41)
[2024-10-23 06:00] VITALS: BMI 25.8
[2024-10-23 06:38] LABS: Blood Urea Nitrogen 24 mg/dl (9-20); Calcium 8.5 mg/dl (8.4-10.2); Carbon Dioxide 24 mmol/L (22-30); Chloride 106 mmol/L (98-107); Estimated Creatinine Clearance 47 ml/min; Glucose 110 mg/dl (70-99); Potassium 4.4 mmol/L (3.5-5.1); Sodium 135 mmol/L (135-145); eGFR 48.25
[2024-10-23 07:02] LABS: Glucose - Point of Care 117 mg/dl (70-99)
[2024-10-23 07:35] VITALS: BP 130/71
[2024-10-23] MEDS: PROGRAF 2 MG PO (08:59)
[2024-10-23] MEDS: LYRICA 200 MG PO (08:59)
[2024-10-23] MEDS: FARXIGA 10 MG PO (08:59)
[2024-10-23] MEDS: PLAVIX 75 MG PO (08:59)
[2024-10-23] MEDS: SENOKOT-S 1 TABLET PO (08:59)
[2024-10-23] MEDS: LIPITOR 40 MG PO (08:59)
[2024-10-23] MEDS: PROTONIX 40 MG PO (09:00)
[2024-10-23] MEDS: CIPRO 500 MG PO (09:00)
[2024-10-23] MEDS: ELIQUIS 5 MG PO (09:00)
[2024-10-23] MEDS: MIRALAX 17 GRAMS PO (09:00)
--- NOTE | 2024-10-23 09:16 | W.PN.HOSP.TC ---
Today's Communication/Plan
-
Await Gram stain
Dulcolax suppository
Discharge
Assessment / Plan
Assessment / Plan
Gen-AAOx3, NAD
HEENT-NC, AT, anicteric, clear oral mm
Neck-supple
CV-reg, no M, +S1/S2
Lungs-clear B/L
Abd-soft, NT, ND
Ext-no edema
Musculoskeletal-no cyanosis, clubbing, mild tenderness over right lateral lumbar musculoskeletal region
Skin-warm and dry
Neuro-grossly non-focal
Psych-calm, cooperative
Abdominal fluid collection -appreciate vascular surgery input.
Blood cultures negative so far.
Fluid collection was aspirated by IR yesterday, 250 cc thin yellow fluid, not purulent. Gram stain and culture pending. Clinically doubt infection. Discussed with ID, Dr. Hartley. Okay to discharge if Gram stain negative, outpatient follow-up.
CHARISSE -creatinine 1.5. Hold lisinopril, furosemide. Suspect CHARISSE related to contrast-induced nephropathy. Urinalysis with 1+ albumin otherwise bland. Bladder scan with 180 cc. Check BMP next week as outpatient.
Low back pain -musculoskeletal in nature. Spinal x-rays negative. Lidocaine patch ordered, would avoid opiates. Avoid NSAIDs given CHARISSE. Discussed with patient.
Left ischial tuberosity fracture -suspect due to recent fall. Treat supportively. PT recommends home health.
Opioid-induced constipation -will continue bowel regimen. Dulcolax suppository now, discussed with nursing. Minimize opiates, discussed with patient.
History of Pseudomonas bacteremia -April 2024. On chronic suppressive ciprofloxacin.
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
Underwent right axillary bifemoral arterial bypass with new ringed 05/01/2024 [facility].
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 Continue tacrolimus.
Essential hypertension -controlled. Stopped amlodipine given relative hypotension. Blood pressure improved.
Hyperlipidemia -atorvastatin.
DM2 without hyperglycemia -hemoglobin A1c 5.7%. At home he is on empagliflozin, metformin.
In the hospital he is getting Farxiga and aspart low resistance corrective scale.
Glucose 110 this morning, 139 last night.
Paroxysmal atrial fibrillation -on Eliquis.
CAD -stable.
COPD without exacerbation -continue home inhalers.
Chronic anemia -hemoglobin appears to be at baseline.
Chronic peripheral neuropathy
Full code
Dispo -anticipate discharge today if Gram stain negative, outpatient follow-up.
31 minutes spent in discharge process.
Anticipated Discharge: Today
Subjective/Interval History
-
Date of Service: October 23, 2024
Patient seen and examined. Still no bowel movement. Lower back pain unchanged.
Objective Data
-
Labs:
Laboratory Results
10/23/24
05:43
Sodium 135
Potassium 4.4
Chloride 106
Carbon Dioxide 24
BUN 24 H
Creatinine 1.5 H
Glucose 110 H
Calcium 8.5
Vital Signs:
Vital Signs
Temp Pulse Resp BP Pulse Ox
98.2 F 74 16 130/71 98
10/23/24 07:35 10/23/24 07:35 10/23/24 07:35 10/23/24 07:35 10/23/24 07:35
I&O
10/22/24 10/23/24 10/24/24
06:59 06:59 06:59
Intake Total 1324 / 1324 700 / 700
Output Total 255 / 255 150 / 150
Balance 1069 / 1069 550 / 550
Review of Systems
-
History Source: Patient
All other systems: Reviewed and negative
[2024-10-23] MEDS: LIDOCAINE 4% PATCH 1 PATCH TOPICAL (10:01)
[2024-10-23] MEDS: DULCOLAX 10 MG RECTAL (10:02)
--- NOTE | 2024-10-23 10:35 | CM ---
Addendum entered by Lois Pepper RN 10/23/24 11:22:
Correction: Dory BECERRA Fax is [phone]
Original Note:
Plan: Discharge to home with Dory VN when medically stable.
Dory VN
--- NOTE | 2024-10-23 11:28 | W.PN.ID1 ---
Date of Service
Date of Service: October 23, 2024
Today's Communication
DC home
Assessment / Plan
# Left retroperitoneal fluid collection
# s/p fall with acute left ischial tuberosity fracture
# Incidental finding of small locule of gas in left mary-aortic region
# Recent hx AAA stent graft infection with Pseudomonas s/p explant s/p Right axillary - bifem bypass (04/2024) s/p 6 weeks IV ceftazidime followed by chronic suppression with cipro
- No mary-aortic fluid collection.
- Per Vascular - locule of 'gas' not significant
- Blood cx's here neg to date.
- 10/22 s/p IR aspiration of left retroperitoneum fluid -> 250cc clear fluid. Gram stain neg org, cx pending
- Continue lifelong cipro 500mg po daily chronic suppression.
- OK to dc home.
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
Paroxysmal atrial fibrillation
CAD
Hypertension
Neuropathy
COPD
AAA s/p remote hx of aortobi-iliac stent graft (at [facility]) complicated by Pseudomonas infection s/p explant (05/01/2024)
Right axillary bifemoral artery bypass with ringed [place] graft (05/01/2024)
Cholecystectomy
Back surgery
History of multiple bile duct stents
Chief Complaint
-: Other
Subjective / Review of Systems
Feels well, no complaints.
Vital Signs / Physical Exam
Vital Signs
Vital Signs
Temp Pulse Resp BP Pulse Ox
98.2 F 74 16 130/71 98
10/23/24 07:35 10/23/24 07:35 10/23/24 07:35 10/23/24 07:35 10/23/24 08:56
Physical Exam
Constitutional: No Acute Distress and Comfortable
Cardiovascular: Regular Rate and S3/S4
Genito-Urinary: Negative CVA Tenderness
Extremities: Negative Edema
Neurological: AO x 3
Objective Data
Lab Data
Lab Results
10/22/24 05:45
10/23/24 05:43
PT 19.8 Sec (11.4-14.6) H 10/19/24 16:39
INR 1.66 10/19/24 16:39
Estimated Creat Clear 47 ml/min 10/23/24 05:43
Lactic Acid Cancelled 10/19/24 20:15
Total Bilirubin 1.3 mg/dl (0.2-1.3) 10/21/24 06:34
AST 23 U/L (17-59) 10/21/24 06:34
ALT 17 U/L (0-50) 10/21/24 06:34
Alkaline Phosphatase 244 U/L (38-126) H 10/21/24 06:34
Most recent labs reviewed.
Micro Results:
10/22/24 18:52 Body Fluid Culture - Pending
Fluid Gram Stain - Pending
10/19/24 18:00 Blood Culture - Preliminary
Blood/Venous No Growth in 72 hours- Final report to follow
10/19/24 18:00 Blood Culture - Preliminary
Blood/Venous No Growth in 72 hours- Final report to follow
[facility] 10/19/24 CT angiogram of a/p: Status post right axillofemoral and femoral�femoral bypass grafting with patent grafts. Postop changes surrounding the mid and caudal abdominal aorta are present with fat stranding and inflammation. A question
locule of gas is present adjacent to left periaortic region. . There is a separate but new crescent-shape dependent collection along the left retroperitoneum laterally which could represent abscess in the correct clinical setting. An acute
fracture of the left ischial tuberosity is present. Chronic pneumobilia improved from prior CAT scan.
Care Review
Plan reviewed with: Physician (Dr. Guzman)
--- NOTE | 2024-10-23 11:50 | W.DS.TRANS ---
DC Summary - Accident Report Clerk
-
Discharge Instructions:
Discharge Diagnosis/Procedures Retroperitoneal fluid collection,
musculoskeletal back pain, acute kidney injury
Diet Diabetic, Carb Controlled,Other diet
Additional Diets High-fiber diet
Activity As tolerated
Driving Restrictions As prior to admission
Bathing Restrictions None
Blood Work BMP next week with your primary care doctor
Instructions:
Stand-Alone Forms:
Changes to Home Medications: No
Discharge Medications:
DC Medications w/original date entered in [employer]
apixaban 5 mg tablet (Eliquis) 5 mg PO BID #60 tabs 11/30/18
clopidogrel 75 mg tablet 75 mg PO DAILY #30 tabs 11/30/18
albuterol sulfate 90 mcg/actuation aerosol inhaler 2 puff inhalation R Q6HPRN PRN sob 04/25/24
amlodipine 2.5 mg tablet 2.5 mg PO DAILY Blood Pressure 04/25/24
atorvastatin 80 mg tablet 40 mg PO DAILY High Cholesterol 04/25/24
metformin 500 mg tablet 500 mg PO DAILY Diabetes 04/25/24
metoprolol succinate 100 mg tablet,extended release 24 hr 50 mg PO DAILY Heart Disease/Condition 04/25/24
pregabalin 200 mg capsule 200 mg PO BID Pain 04/25/24
tacrolimus 0.5 mg capsule, immediate-release 2 mg PO BID Transplant 04/25/24
therapeutic multivitamin 1 tab PO DAILY Supplement 04/25/24
pantoprazole 40 mg tablet,delayed release (Protonix) 40 mg PO BID Gastrointestinal Issue 05/02/24
tiotropium bromide 2.5 mcg/actuation mist for inhalation 2 puff inhalation DAILY Lung/Breathing Issues 05/02/24
ciprofloxacin HCl 500 mg tablet 500 mg PO DAILY Infection 10/19/24
empagliflozin 25 mg tablet 25 mg PO DAILY Diabetes 10/19/24
fluticasone 100 mcg-salmeterol 50 mcg/dose blistr powdr for inhalation (Advair Diskus) 1 inh inhalation BID Lung/Breathing Issues 10/19/24
magnesium oxide 400 mg PO BID Supplement 10/19/24
lidocaine 4 % topical patch 1 patch topical DAILY #10 ea 10/23/24
polyethylene glycol 3350 17 gram oral powder packet 17 g PO DAILY #0 ea 10/23/24
Home Medication Changes
Pending Results: No
[2024-10-23 12:37] LABS: Glucose - Point of Care 111 mg/dl (70-99)
[2024-10-23 13:20] VITALS: BP 106/65
== END 2024-10-23 14:29 | disposition home health service (06) | DRG 920 ==
LOC: 2 SOUTH 17:44
PROVIDERS: Radiology Vascular & Interventional Radiology; ADMITTING PHYSICIAN Internal Medicine; ATTENDING PHYSICIAN Hospitalist; EMERGENCY PHYSICIAN Emergency Medicine; FAMILY PHYSICIAN Family Medicine; OTHER PHYSICIAN Internal Medicine Infectious Disease; OTHER PHYSICIAN Surgery Vascular Surgery
PROC: 0W9H3ZZ Drainage of Retroperitoneum, Percutaneous Approach (ICD-10-PCS; 2024-10-23)
DX: K91.873 Postprocedural seroma of a digestive system organ or structure following other procedure (principal); D84.821 Immunodeficiency due to drugs; S32.692A Other specified fracture of left ischium, initial encounter for closed fracture; Z94.4 Liver transplant status; N17.9 Acute kidney failure, unspecified; I10 Essential (primary) hypertension; I25.10 Atherosclerotic heart disease of native coronary artery without angina pectoris; I48.0 Paroxysmal atrial fibrillation; J44.9 Chronic obstructive pulmonary disease, unspecified; E78.00 Pure hypercholesterolemia, unspecified; E11.42 Type 2 diabetes mellitus with diabetic polyneuropathy; D64.9 Anemia, unspecified; W19.XXXA Unspecified fall, initial encounter; K59.03 Drug induced constipation; T40.2X5A Adverse effect of other opioids, initial encounter; Y83.8 Other surgical procedures as the cause of abnormal reaction of the patient, or of later complication, without mention of misadventure at the time of the procedure; I25.2 Old myocardial infarction; Z87.891 Personal history of nicotine dependence; Z79.84 Long term (current) use of oral hypoglycemic drugs; Z86.79 Personal history of other diseases of the circulatory system; Z79.899 Other long term (current) drug therapy; Z79.02 Long term (current) use of antithrombotics/antiplatelets; Z79.01 Long term (current) use of anticoagulants; Z79.621 Long term (current) use of calcineurin inhibitor
CPT/HCPCS: 49406; 72072; 72110; 80048; 80053; 80197; 81003; 81015; 82962; 83036; 83605; 85025; 85027; 85610; 87015; 87040; 87070; 87205; 93005; 97116; 97162; 97530; 99152; 99284

== ENCOUNTER 2024-11-01 15:49 | Inpatient (IN) | payer MEDICARE, OTHER, SELFPAY ==
[2024-11-01] VITALS (11 sets, daily range): BP systolic 95–145; BP diastolic 52–88; BMI 24.4
[2024-11-01 10:10] LABS: Hematocrit 29.7 % (39.0-52.0); Hemoglobin 9.9 g/dL (13.0-18.0); Mean Corp Hgb Conc. 33.3 g/dL (33.0-37.0); Mean Corpuscular Volume 92.0 fL (80.0-94.0); Nucleated Red Blood Cells % 0 % (-); Platelet Count 217 10^3/uL (130-400); Red Cell Dist. Width 15.5 % (11.5-14.5)
[2024-11-01 10:20] LABS: ALT (SGPT) 12 U/L (0-50); AST (SGOT) 21 U/L (17-59); Albumin 3.4 g/dl (3.5-5.0); Alkaline Phosphatase 163 U/L (38-126); Blood Urea Nitrogen 29 mg/dl (9-20); Calcium 9.1 mg/dl (8.4-10.2); Carbon Dioxide 22 mmol/L (22-30); Chloride 108 mmol/L (98-107); Estimated Creatinine Clearance 44 ml/min; Glucose 119 mg/dl (70-99); Lipase 96 U/L (23-300); Potassium 4.8 mmol/L (3.5-5.1); Sodium 137 mmol/L (135-145); Total Protein 6.7 g/dl (6.3-8.2); eGFR 44.65
[2024-11-01 10:31] LABS: INR 1.88; PT 21.8 Sec (11.4-14.6)
[2024-11-01 12:25] LABS: Urine Character Clear (Clear)
--- NOTE | 2024-11-01 15:02 | ED.GENMED ---
History of Present Illness
General
Chief Complaint: Abnormal Lab Value
Source: patient and family
Exam Limitations: none
Time Seen by Provider: 11/01/24 10:03
History of Present Illness
History of Present Illness:
Note:
CHIEF COMPLAINT(S)
The patient presents with persistent abdominal pain and concerns about liver and kidney function abnormalities.
HISTORY OF PRESENT ILLNESS
The patient is a 74-year-old male with a history of liver transplantation 18 years ago. He presents with persistent abdominal pain and abnormal liver and kidney function tests. He previously underwent fluid drainage from his abdomen due to an
infection. Currently, there is persistence of abdominal discomfort, described as mild generalized tenderness, more noticeable on the left side. The patient denies fever and nausea, but reports blood in the stool following bowel movements,
attributing this to known hemorrhoids. The patient had an aortic bypass surgery five months ago and there is a palpable graft in his right abdomen identified by the family. He also has a history of stopping tobacco smoking as of January 19.
PAST MEDICAL AND SURGICAL HISTORY
- Liver transplantation 18 years prior.
- Recent fluid drainage from abdomen.
- Aortic bypass surgery five months ago.
CHRONIC MEDICAL CONDITIONS SIGNIFICANTLY AFFECTING CARE
- History of liver transplantation.
SOCIAL HISTORY
The patient reports cessation of smoking tobacco on January 19.
REVIEW OF SYSTEMS
- Gastrointestinal: Blood after bowel movements attributed to hemorrhoids, some abdominal discomfort.
- Constitutional: Denies nausea and fever.
PHYSICAL EXAM
General: Alert, no acute distress.
Abdominal: Mild generalized tenderness, more noticeable on the left side. Palpable device in the right abdomen, family states is the graft from the bypass surgery.
Cardiovascular: Heart rhythm regular. No jugular venous distension or lower extremity edema.
Neurological: Awake, alert, and oriented to person, place, time, and situation.
PLAN
- Obtain additional lab work including a coagulation set due to liver concerns.
- Review previous medical records for comparison and further evaluation.
- Determine the need for communication with the patients liver transplant specialist at [facility] regarding abdominal fluid drainage and current concerns.
DIFFERENTIAL DIAGNOSIS
The Differential Diagnosis includes, in no particular order and is not limited to:
1. Hepatorenal syndrome
2. Infection-related abdominal pain
3. Abdominal fluid accumulation (ascites)
4. Post-surgical complications
5. Graft-related complications
6. Gastrointestinal bleeding due to hemorrhoids
7. Liver transplant rejection
8. Heart failure-related abdominal symptoms
9. Nephropathy
10. Biliary obstruction
Disposition:
SUMMARY OF ENCOUNTER
The 74-year-old male patient was assessed for persistent abdominal pain and concerning lab results suggesting existing complications. Upon arrival at the emergency department, it was reported that he was directed here by his doctor due to abnormal
lab findings, although specific details were not initially available from the patient. The persistent abdominal pain prompted a review of old labs, revealing a creatinine level of 1.6, consistent with previous values ranging from 1.4 to 1.8. Despite
a normal white blood cell count, the patient continued to experience pain. A repeat CT scan indicated persistent stranding and mild lymphadenopathy in the retroperitoneum, raising concerns for an ongoing infection. Additionally, there was a notable
12 by 9 by 3.8 centimeter left retroperitoneal collection. Previous medical records indicated that interventional radiology had drained a similar collection previously, which was not deemed infectious at the time. However, due to the persistence and
growth of the collection, the decision was made to admit the patient for further evaluation and management.
DISPOSITION
Admit
ASSESSMENT
The patient presents with persistent abdominal pain, possible ongoing infection suggested by imaging with a retroperitoneal collection. Given the medical history and findings, the need for further evaluation and management is necessary.
INDEPENDENT REVIEW OF LABS AND INTERPRETATION OF TESTS
My independent review of the patients creatinine level is 1.6, consistent with prior values in the range of 1.4 to 1.8. White blood cell count is normal.
My independent interpretation of the CT scan shows persistent stranding, mild lymphadenopathy within the retroperitoneum, and a 12 by 9 by 3.8 centimeter left retroperitoneal collection, suggestive of potential ongoing infection.
MEDICAL DECISION MAKING
-Complexity of Data Reviewed: Chronic conditions affecting care [History of liver transplantation, recent aortic bypass surgery] Differential Diagnosis includes hepatorenal syndrome, infection-related abdominal pain, abdominal fluid accumulation
(ascites), post-surgical complications, graft-related complications, gastrointestinal bleeding due to hemorrhoids, liver transplant rejection, heart failure-related abdominal symptoms, nephropathy, biliary obstruction.
-Data:
Category 1
- CT scan reviewed showing ongoing infection suspicion and retroperitoneal collection.
Category 2
- Non-emergency department records reviewed, including previous discharge summaries indicating prior drainage of a collection.
-Risk:
Consideration of Admission/Observation: Escalation of care including admission/observation was considered given the complexity and risk of the patients presenting complaint, exam findings, and/or their underlying comorbidities. Ultimately I feel the
patient is safe for inpatient management with close follow-up and further evaluation.
DIAGNOSIS
1. Abdominal pain, unspecified (R10.9)
2. Retroperitoneal abscess/collection
3. Renal insufficiency, unspecified (N28.9)
4. Post-liver transplant status (Z94.4)
Past History
Past History
ED Past Medical History: CAD, HTN, [place] and Other (Liver transplant)
ED Past Surgical History: Other (liver transplant, AAA)
Social History
Tobacco: Smoker
Alcohol: Former
Drug: None
Personal:
Living: with family
Employment: Not employed
Family History
Family History: CAD and Other (Noncontributory)
Phy Exam
Physical Exam
Physical Exam:
.
Course
Orders/Labs/Results
Orders:
Orders
11/01/24 09:49
Complete Blood Count/With Diff Urgent
Comprehensive Metabolic Panel Urgent
Lipase Urgent
11/01/24 10:16
Prothrombin Time Urgent
11/01/24 12:09
Urinalysis Reflex To Culture Urgent
Date Specimen was Collected: 11/01/24
Time Specimen was Collected: 12:07
11/01/24 13:42
CT Abd/pel Without Iv Or Oral Urgent
Comment:
Reason For Exam: abd pain, recent abnormal CT, assess collections
Abnormal Lab Results
11/01/24 11/01/24 11/01/24
09:49 10:16 12:09
RBC 3.23 L 10^6/uL
(4.70-6.10)
Hgb 9.9 L g/dL
(13.0-18.0)
Hct 29.7 L %
(39.0-52.0)
RDW 15.5 H %
(11.5-14.5)
MPV 11.7 H fL
(7.4-10.4)
Abs Immat Gran (auto) 0.2 H 10^3/uL
(0-0.05)
Absolute Lymphs (auto) 1.1 L 10^3/uL
(1.2-3.4)
Absolute Monos (auto) 1.4 H 10^3/uL
(0.1-0.6)
Immature Gran % 2.3 H %
(0-0.5)
Lymphocytes % 13.0 L %
(20.5-51.1)
Monocytes % 16.5 H %
(1.7-9.3)
PT 21.8 H Sec
(11.4-14.6)
Chloride 108 H mmol/L
(98-107)
BUN 29 H mg/dl
(9-20)
Creatinine 1.6 H mg/dL
(0.7-1.3)
Glucose 119 H mg/dl
(70-99)
Alkaline Phosphatase 163 H U/L
(38-126)
Albumin 3.4 L g/dl
(3.5-5.0)
Urine Glucose 3+ A
(Negative)
11/01/24 09:49
11/01/24 09:49
Vital Signs
Initial and Last Documented VS:
Initial Vital Signs
Temp Pulse Resp BP Pulse Ox
98.3 F 72 16 117/88 97
11/01/24 09:40 11/01/24 09:40 11/01/24 09:40 11/01/24 09:40 11/01/24 09:40
Last Documented Vital Signs
Temp Pulse Resp BP Pulse Ox
97.6 F 67 16 133/68 93
11/01/24 10:16 11/01/24 11:15 11/01/24 11:15 11/01/24 11:00 11/01/24 11:15
*Pulse Oximetry
SaO2: 93
Oxygen Mode of Delivery: Room air
Patient hypoxic: yes
*Critical Care Note
Total Time (30-74mins, 75-104mins- exclusive of procedures): Not Applicable
ED Attending Note
-
Portions of this chart may have been created with voice recognition software.� Occasional wrong word or��sound alike� substitutions may have occurred due to the inherent limitations of voice recognition software.
Discharge Plan
Departure
Patient Disposition: Admit
Date of Disposition: 11/01/24
Time of Disposition: 15:02
Admit to: Telemetry
Presentation/result/management discussed w/ accepting MD/DO: Hospitalist
Discharge Problem:
Intra-abdominal collection, Renal insufficiency
Prescriptions:
No Action
clopidogrel 75 MG tablet
75 mg PO DAILY Qty: 30 11RF
Eliquis 5 MG tablet
5 mg PO BID Qty: 60 3RF
albuterol sulfate 90 mcg/actuation Hfa Aerosol Inhaler
2 puff INHALATION R Q6HPRN PRN (Reason: sob)
atorvastatin 80 mg Tablet
40 mg PO DAILY
therapeutic multivitamin Tablet
1 tab PO DAILY
pregabalin 200 mg Capsule
200 mg PO BID
Patient Comments:
pdmp patient pickle pumper at the [facility] #90 08/27/24
metformin 500 mg Tablet
500 mg PO DAILY
metoprolol succinate 100 mg Tablet Extended Release 24 Hr
50 mg PO DAILY
amlodipine 2.5 mg Tablet
2.5 mg PO DAILY
tacrolimus 0.5 mg Capsule
2 mg PO BID
pantoprazole [Protonix] 40 mg Tablet,Delayed Release (Dr/Ec)
40 mg PO BID
tiotropium bromide 2.5 mcg/actuation Mist
2 puff INHALATION DAILY
empagliflozin 25 mg Tablet
25 mg PO DAILY
fluticasone propion-salmeterol [Advair Diskus] 100-50 mcg/dose Blister With Device
1 inh INHALATION R BID
magnesium oxide 400 mg magnesium Tablet
400 mg PO BID
lidocaine 4 % Adhesive Patch,Medicated
1 patch topical DAILY Qty: 10 0RF
Rx Instructions:
Apply to lower back
furosemide [Lasix] 20 mg Tablet
20 mg PO DAILY
polyethylene glycol 3350 17 gram powder in packet
17 g PO DAILYPRN PRN (Reason: constipation)
Referrals:
Odilia Velázquez, [Family Provider, Family Practice]
Interventions
Interventions:
*Risk Screen - Suicide Last Done: 11/01/24 09:40
*General Assessment Last Done: 11/01/24 10:16
*Neglect/Abuse Screening Last Done: 11/01/24 09:40
*ED- Fall Risk Assessment Last Done: 11/01/24 10:16
*ED COVID-19 Vaccine History Last Done: 11/01/24 10:16
Discharge Date and Time
Print Language: CROATIAN
--- NOTE | 2024-11-01 15:39 | HPS.HSE ---
Family Physician
-
Family Physician: Odilia Velázquez
Chief Complaint
-
Lower abdominal pain
History of Present Illness
74-year-old male who was discharged from the hospital end of September and completed antibiotic orally till October 19 for intra-abdominal collection which considered abscess but the culture then was negative.
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
started earlier today, with mild to moderate in nature, localized to have no relieving aggravating factor and for the ER received some medication otherwise denies any fever or chill headache or any vision change or any bleeding event or changes to
the urine color denies any fall or trauma or accident.
The CAT scan at this time again showed a collection of 12.1 x 9.3 x 3.8 left retroperitoneal area. Not sure if this is an abscess or blood specially with no leukocytosis and fever concerning for more hematoma or seroma.
He is awake, alert and oriented x 3 hold appropriate conversations.
Medical History
Past Medical History
Past Medical History: Reports Other
Additional Past Medical History:
Past medical history REVIEWED:
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
Liver transplant
Coronary artery disease status post stent
Hypertension
A-fib
COPD
Diabetes mellitus
Peripheral vascular disease
Osteoarthritis
Recent intra-abdominal collection
Aortobifemoral graft infection
Surgical history:
Abdominal aortic aneurysm graft with aortobifemoral graft and stent infection and removal
Right axillary bifemoral bypass with ringed [place] graft in April 2024
Cardiac cath and stenting
Left knee arthroscopy
Liver transplant
Back surgery
Social history: Lives alone independently, denies smoking, alcohol or drug use.
Family history: Reviewed and noncontributory
Past Surgical History: Reports Other
Social History
Tobacco: Other
Family History
Family History: Other
Allergies / Home Medications
Allergies reflects when Allergies were last updated in [employer].
Home Medications with original date entered in [employer]
Allergy/Medication List:
Allergies
Allergy/AdvReac Type Severity Reaction Status Date / Time
No Known Allergies Allergy Verified 11/01/24 09:39
Home Medications
apixaban 5 mg tablet (Eliquis) 5 mg PO BID #60 tabs 11/30/18
clopidogrel 75 mg tablet 75 mg PO DAILY #30 tabs 11/30/18
albuterol sulfate 90 mcg/actuation aerosol inhaler 2 puff inhalation R Q6HPRN PRN sob 04/25/24
amlodipine 2.5 mg tablet 2.5 mg PO DAILY Blood Pressure 04/25/24
atorvastatin 80 mg tablet 40 mg PO DAILY High Cholesterol 04/25/24
metformin 500 mg tablet 500 mg PO DAILY Diabetes 04/25/24
metoprolol succinate 100 mg tablet,extended release 24 hr 50 mg PO DAILY Heart Disease/Condition 04/25/24
pregabalin 200 mg capsule 200 mg PO BID mild Pain 04/25/24
tacrolimus 0.5 mg capsule, immediate-release 2 mg PO BID Transplant 04/25/24
therapeutic multivitamin 1 tab PO DAILY Supplement 04/25/24
pantoprazole 40 mg tablet,delayed release (Protonix) 40 mg PO BID Gastrointestinal Issue 05/02/24
tiotropium bromide 2.5 mcg/actuation mist for inhalation 2 puff inhalation DAILY Lung/Breathing Issues 05/02/24
empagliflozin 25 mg tablet 25 mg PO DAILY Diabetes 10/19/24
fluticasone 100 mcg-salmeterol 50 mcg/dose blistr powdr for inhalation (Advair Diskus) 1 inh inhalation R BID Lung/Breathing Issues 10/19/24
magnesium oxide 400 mg PO BID Supplement 10/19/24
lidocaine 4 % topical patch 1 patch topical DAILY #10 ea 10/23/24
furosemide 20 mg tablet (Lasix) 20 mg PO DAILY 11/01/24
polyethylene glycol 3350 17 gram oral powder packet 17 g PO DAILYPRN PRN constipation 11/01/24
Review of Systems
-
A 12 point ROS was completed and negative except as noted: Yes
Physical Exam
Vital Signs
Vital Signs
Temp Pulse Resp BP Pulse Ox
97.6 F 67 16 133/68 93
11/01/24 10:16 11/01/24 11:15 11/01/24 11:15 11/01/24 11:00 11/01/24 15:05
Physical exam:
General: Awake, alert and oriented x3, has a flat affect, answers questions briefly and shortly not in distress and holds appropriate conversation.
HEENT: No active discharge, ecchymosis or bruising, moist lips, tongue and mucous membrane.
Eyes: No discharge or red conjunctiva, no nystagmus, pupils are reactive and equal
Neck:Supple, no JVD no bruit no goiter.
Respiratory: Normal AP contour and diameter, normal chest wall movement, normal respiratory effort, no respiratory distress,
Lungs: Good air entry bilaterally, no wheezing or rhonchi, no rales or crackles
Heart: S1, S2 regular, normal rate, no added sound.
Gastrointestinal: Positive bowel sounds, soft, globular and nontender, no guarding or rigidity or organomegaly
Musculoskeletal: , no chest wall abnormality or tenderness. All joints and extremities have good range of motion, no muscle tenderness or any joint swelling or tenderness.
Extremities: Mild bilateral lower extremities pitting edema, good peripheral pulses, good range of motion
Skin: Warm and dry, no ulceration, normal color.
Neurological: Awake, alert and oriented x3, no facial droop, speech clear and comprehensive, good muscle tone, move extremities freely
Psychiatric: Normal mood, normal thought and judgment, normal affect,
Physical Exam
General: Other
Laboratory Results
-
11/01/24 09:49
11/01/24 09:49
Laboratory Results
PT 21.8 Sec (11.4-14.6) H 11/01/24 10:16
INR 1.88 11/01/24 10:16
Total Bilirubin 0.9 mg/dl (0.2-1.3) 11/01/24 09:49
AST 21 U/L (17-59) 11/01/24 09:49
ALT 12 U/L (0-50) 11/01/24 09:49
Alkaline Phosphatase 163 U/L (38-126) H 11/01/24 09:49
Lipase 96 U/L (23-300) 11/01/24 09:49
CT abdominal pelvis:
Changes of prior infrarenal endovascular graft explant with persistent stranding and mild lymphadenopathy within the retroperitoneum suggestive of ongoing infection. There is a 12.1 x 9.3 x 3.8 cm left retroperitoneal collection.
Colonic diverticulosis.
There is mild biliary duct dilation with diffuse wall thickening, similar to prior and for which cholangitis cannot be excluded. Recommend correlation with lab values.
There is a new sclerotic focus within the right inferior pubic ramus which may represent a subacute fracture
Data Reviewed
-
Diagnostic Radiology: Image Personally Visualized and interpreted and Report Reviewed by me
Lab Data: Labs Reviewed by me and Discussed with Patient
Old Records: Reviewed
Impression/Plan
-
IMPRESSION:
74-year-old male with history of liver transplant and being immunocompromised presented again complaining of lower abdominal pain over the CAT scan showed 12.1 x 9.3 x 3.8 collection concerning for recurrent infection but there is no fever or
leukocytosis. Other causes hematoma or seroma possibilities.
Acute lower abdominal pain:
Likely secondary to the collection above infection versus hematoma versus seroma while no evidence of viscus perforation
For now we will cover him with a broad-spectrum robotic again
IR consult
Pain management
Hold off his Eliquis as hematoma is a possibility especially there is no fever or leukocytosis. Holding Eliquis discussed with the patient is increased risk of the thromboembolism
Progress understanding, if there is no evidence of hematoma then Eliquis can be restarted.
Pain medication
Intra-abdominal collection:
Is retroperitoneal and as above.
Chronic kidney disease:
Creatinine around 1.5-1.6 and today is 1.6
Avoid nephrotoxic
Recheck.
COPD continue his Advair
Stable
Diabetes: He is on empagliflozin and metformin, hold metformin and metformin at the good option for him with a baseline creatinine around 1.5-1.6.
Glucose: Monitor blood sugar
All discussed with the patient in detail and expressed understanding of the question answered
CODE STATUS full code
DVT prophylaxis SCD and INR is 1.8 while holding Eliquis
--- NOTE | 2024-11-01 16:06 | EDRN ---
this RN called the receiving unit and notified them that paper report was going to be tubed up
[2024-11-01] MEDS: ZOSYN 50 IV ×2 (16:48→23:05)
[2024-11-01 17:45] LABS: Glucose - Point of Care 110 mg/dl (70-99)
[2024-11-01] MEDS: MORPHINE SULFATE 2 MG IV (18:10)
[2024-11-01] MEDS: NOVOLOG FLEXPEN-LOW RESISTANCE SC (18:19)
[2024-11-01] MEDS: LIPITOR 40 MG PO (18:32)
[2024-11-01] MEDS: LYRICA 200 MG PO (19:29)
[2024-11-01] MEDS: PROTONIX 40 MG PO (19:30)
[2024-11-01] MEDS: PROGRAF 2 MG PO (19:30)
[2024-11-01] MEDS: MAGNESIUM OXIDE 400 MG PO (19:30)
[2024-11-01] MEDS: ADVAIR HFA 45/21 MCG INHALER 2 PUFF INH (20:16)
[2024-11-01 21:27] LABS: Glucose - Point of Care 189 mg/dl (70-99)
[2024-11-02] VITALS (7 sets, daily range): BP systolic 94–139; BP diastolic 57–75
[2024-11-02] MEDS: ZOSYN 50 IV ×4 (05:11→23:05)
[2024-11-02] MEDS: MORPHINE SULFATE 2 MG IV ×4 (05:51→20:55)
[2024-11-02 06:50] LABS: Hematocrit 29.2 % (39.0-52.0); Hemoglobin 10.0 g/dL (13.0-18.0); Mean Corp Hgb Conc. 34.2 g/dL (33.0-37.0); Mean Corpuscular Volume 91.0 fL (80.0-94.0); Platelet Count 205 10^3/uL (130-400); Red Cell Dist. Width 15.6 % (11.5-14.5)
[2024-11-02 07:18] LABS: Blood Urea Nitrogen 25 mg/dl (9-20); Calcium 8.6 mg/dl (8.4-10.2); Carbon Dioxide 23 mmol/L (22-30); Chloride 108 mmol/L (98-107); Estimated Creatinine Clearance 41 ml/min; Glucose 121 mg/dl (70-99); Potassium 4.6 mmol/L (3.5-5.1); Sodium 138 mmol/L (135-145); eGFR 41.52
[2024-11-02] MEDS: SPIRIVA RESPIMAT 2.5 MCG 2 PUFF INH (08:14)
[2024-11-02] MEDS: ADVAIR HFA 45/21 MCG INHALER 2 PUFF INH ×2 (08:14→18:02)
[2024-11-02 08:26] LABS: Glucose - Point of Care 117 mg/dl (70-99)
[2024-11-02] MEDS: NOVOLOG FLEXPEN-LOW RESISTANCE SC ×2 (08:32→11:29)
[2024-11-02] MEDS: MAGNESIUM OXIDE 400 MG PO ×2 (08:33→20:13)
[2024-11-02] MEDS: NORVASC PO (08:33)
[2024-11-02] MEDS: PROTONIX 40 MG PO ×2 (08:33→20:13)
[2024-11-02] MEDS: LIDOCAINE 4% PATCH 1 PATCH TOPICAL (08:34)
[2024-11-02] MEDS: PROGRAF 2 MG PO ×2 (08:37→20:13)
[2024-11-02] MEDS: TOPROL XL PO (08:37)
[2024-11-02] MEDS: FARXIGA 10 MG PO (08:37)
[2024-11-02] MEDS: LYRICA 200 MG PO ×2 (08:37→20:13)
[2024-11-02] MEDS: LR 1000 IV (09:16)
[2024-11-02 11:28] LABS: Glucose - Point of Care 123 mg/dl (70-99)
--- NOTE | 2024-11-02 12:35 | W.PN.HOSP.TC ---
Today's Communication/Plan
-
cont empiric abx
ivf
hold lasix
Vascular consulted
IR for possible drainage - although after discussion with vascular
Assessment / Plan
Assessment / Plan
Physical exam:
General: Awake, alert and oriented x3, has a flat affect, answers questions briefly and shortly not in distress and holds appropriate conversation.
HEENT: No active discharge, ecchymosis or bruising, moist lips, tongue and mucous membrane.
Eyes: No discharge or red conjunctiva, no nystagmus, pupils are reactive and equal
Neck:Supple, no JVD no bruit no goiter.
Respiratory: Normal AP contour and diameter, normal chest wall movement, normal respiratory effort, no respiratory distress,
Lungs: Good air entry bilaterally, no wheezing or rhonchi, no rales or crackles
Heart: S1, S2 regular, normal rate, no added sound.
Gastrointestinal: Positive bowel sounds, soft, globular and nontender, no guarding or rigidity or organomegaly
Musculoskeletal: , no chest wall abnormality or tenderness. All joints and extremities have good range of motion, no muscle tenderness or any joint swelling or tenderness.
Extremities: Mild bilateral lower extremities pitting edema, good peripheral pulses, good range of motion
Skin: Warm and dry, no ulceration, normal color.
Neurological: Awake, alert and oriented x3, no facial droop, speech clear and comprehensive, good muscle tone, move extremities freely
Psychiatric: Normal mood, normal thought and judgment, normal affect,
#Acute lower abdominal pain
#Persistent stranding and mild lymphadenopathy within the retroperitoneum
#12.1 x 9.3 x 3.8 cm left retroperitoneal collection.
-possible related infection although clinically not appearing so
-Vascular Consulted as s/p explant of infected aortic stent graft along with ax bi fem bypass presented to [facility] s/p fall;
-IR for IR drainage once discussed with vascular
-Empiric Abx
-Pain management
-Hold off his Eliquis as hematoma is a possibility especially there is no fever or leukocytosis. Holding Eliquis discussed with the patient is increased risk of the thromboembolism
CHARISSE v Chronic kidney disease:
Scr 1.1 on 10/19; now 1.7
-LR bolus
-Stop lasix
-avoid nephrotoxic agents
#COPD
Stable
continue inhalers
#Diabetes: He is on empagliflozin and metformin, hold metformin
#Hypertension
#HLD
-cont home meds
All discussed with the patient in detail and expressed understanding of the question answered
CODE STATUS full code
DVT prophylaxis SCD while holding Eliquis
Anticipated Discharge: > 48 hours
Subjective/Interval History
-
Date of Service: November 02, 2024
Lower abdominal pain still present
Objective Data
-
Labs:
Laboratory Results
11/02/24
06:08
WBC 7.8
Hgb 10.0 L
Hct 29.2 L
Plt Count 205
Sodium 138
Potassium 4.6
Chloride 108 H
Carbon Dioxide 23
BUN 25 H
Creatinine 1.7 H
Glucose 121 H
Calcium 8.6
Vital Signs:
Vital Signs
Temp Pulse Resp BP Pulse Ox
98.3 F 70 16 117/69 98
11/02/24 11:05 11/02/24 11:05 11/02/24 11:05 11/02/24 11:05 11/02/24 11:05
I&O
11/01/24 11/02/24 11/03/24
06:59 06:59 06:59
Intake Total 1057 / 1057
Output Total 715 / 715
Balance 342 / 342
Review of Systems
-
History Source: Patient
All other systems: Reviewed and negative
Data Reviewed
-
Diagnostic Radiology: Image personally visualized and interpreted, Report Reviewed by me and Discussed with Physician (Interventional radiology)
Labs: Labs Reviewed by me and Discussed with Patient
--- NOTE | 2024-11-02 13:06 | CM ---
Initial assessment completed with pt at bedside.
Pt is a 74yr old male admitted for retroperitoneal collection. Pt is a liver transplant and has collection of fluid being worked up for possible infection vs hematoma.
At baseline, pt lives alone in a 1 level home with 4ste.
Pt is indep with mobility and ADLs and the use of a RW. Pt does not drive. Pt has a shower chair, RW, cane, commode, and wheelchair.
Pt has been to [facility] and [facility]. VN pt is active with [facility].
Pts desire is to dc to home with Dory JOCELYN
PCP; Odilia Velázquez and [facility]
Pharm; [facility] and [facility]
PLAN; Return to Home with JOCELYN Connors
[2024-11-02] MEDS: LIPITOR 40 MG PO (16:47)
[2024-11-02 16:56] LABS: Glucose - Point of Care 182 mg/dl (70-99)
[2024-11-02] MEDS: NOVOLOG FLEXPEN-LOW RESISTANCE 1 UNITS SC (17:56)
[2024-11-02 20:59] LABS: Glucose - Point of Care 177 mg/dl (70-99)
[2024-11-03] VITALS (13 sets, daily range): BP systolic 61–142; BP diastolic 52–75
[2024-11-03] MEDS: MORPHINE SULFATE 2 MG IV ×5 (02:03→18:35)
[2024-11-03] MEDS: ZOSYN 50 IV ×4 (05:02→23:26)
[2024-11-03 06:29] LABS: Hematocrit 28.2 % (39.0-52.0); Hemoglobin 9.3 g/dL (13.0-18.0); Mean Corp Hgb Conc. 33.0 g/dL (33.0-37.0); Mean Corpuscular Volume 91.9 fL (80.0-94.0); Platelet Count 198 10^3/uL (130-400); Red Cell Dist. Width 15.6 % (11.5-14.5)
[2024-11-03 06:30] LABS: Glucose - Point of Care 132 mg/dl (70-99)
[2024-11-03 06:48] LABS: Blood Urea Nitrogen 27 mg/dl (9-20); Calcium 8.6 mg/dl (8.4-10.2); Carbon Dioxide 24 mmol/L (22-30); Chloride 109 mmol/L (98-107); Estimated Creatinine Clearance 39 ml/min; Glucose 130 mg/dl (70-99); Potassium 4.6 mmol/L (3.5-5.1); Sodium 140 mmol/L (135-145); eGFR 38.77
[2024-11-03] MEDS: SPIRIVA RESPIMAT 2.5 MCG 2 PUFF INH (08:07)
[2024-11-03] MEDS: ADVAIR HFA 45/21 MCG INHALER 2 PUFF INH ×2 (08:08→19:59)
[2024-11-03] MEDS: PROGRAF 2 MG PO ×2 (08:30→19:34)
[2024-11-03] MEDS: NORVASC 2.5 MG PO (08:30)
[2024-11-03] MEDS: PROTONIX 40 MG PO ×2 (08:30→19:34)
[2024-11-03] MEDS: FARXIGA 10 MG PO (08:30)
[2024-11-03] MEDS: LYRICA 200 MG PO ×2 (08:30→19:34)
[2024-11-03] MEDS: LIDOCAINE 4% PATCH 1 PATCH TOPICAL (08:31)
[2024-11-03] MEDS: MAGNESIUM OXIDE 400 MG PO ×2 (08:31→19:34)
[2024-11-03] MEDS: TOPROL XL 50 MG PO (08:31)
--- NOTE | 2024-11-03 10:37 | CM ---
Patient seen at bedside
cont on IV antibiotic
IR consult
patient current with [facility]
PLAN: TBD, follow hospital progression, CM to follow for needs
[2024-11-03 12:24] LABS: Glucose - Point of Care 113 mg/dl (70-99)
--- NOTE | 2024-11-03 13:34 | CON.VAS ---
Consultation
Consultation Request
Date/Time Consultation Performed: 11/03/24 @ 2:30
Performing Provider: Willis Brannon
Reason for Consultation: Abd/back pain
Medical History
-
Chief Complaint: abdominal pain, back pain
History of Present Illness:
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
abdominal pain. Pt seen by our service most recently on 10/21/24 after transferred here from [place] for similar symptoms. At that time underwent CT guided drainage of left retroperitoneal collection. Note indicates straw-colored fluid. Cultures
grew out no bacteria. Was doing well. Pt had been on chronic antibiotic suppression at that time.
Vascular consultation today for right sided back pain. Pt seen at bedside this afternoon with Dr Brannon.
CT scan repeat 11/01/2024 demonstrates retroperitoneal collection again noted. On exam he is nontoxic-appearing. He is afebrile. His abdomen is soft, nondistended, nontender. Feet are warm with good perfusion.
Past Medical History
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
(removed), ax-bifem bypass)
Past Surgical History: Other (Abdominal aortic aneurysm graft with aortobifemoral graft and stent infection and removal, Right axillary bifemoral bypass with ringed [place] graft in April 2024, Left knee arthroscopy, Liver transplant, Back surgery)
Social History
Tobacco: Former Smoker
Alcohol: Occasional
Drug: None
Living: Alone
Family History
Family History: Reviewed & Not Pertinent
Allergies / Home Medications
Allergy/AdvReac Type Severity Reaction Status Date / Time
No Known Allergies Allergy Verified 11/01/24 09:39
�Medication �Instructions �Recorded �Confirmed �Type
apixaban 5 mg tablet (Eliquis) 5 mg PO BID #60 tabs 11/30/18 11/01/24 Rx
clopidogrel 75 mg tablet 75 mg PO DAILY #30 tabs 11/30/18 11/01/24 Rx
albuterol sulfate 90 mcg/actuation 2 puff inhalation R Q6HPRN PRN sob 04/25/24 11/01/24 History
aerosol inhaler
amlodipine 2.5 mg tablet 2.5 mg PO DAILY Blood Pressure 04/25/24 11/01/24 History
atorvastatin 80 mg tablet 40 mg PO DAILY High Cholesterol 04/25/24 11/01/24 History
metformin 500 mg tablet 500 mg PO DAILY Diabetes 04/25/24 11/01/24 History
metoprolol succinate 100 mg 50 mg PO DAILY Heart 04/25/24 11/01/24 History
tablet,extended release 24 hr Disease/Condition
pregabalin 200 mg capsule 200 mg PO BID mild Pain 04/25/24 11/01/24 History
tacrolimus 0.5 mg capsule, 2 mg PO BID Transplant 04/25/24 11/01/24 History
immediate-release
therapeutic multivitamin 1 tab PO DAILY Supplement 04/25/24 11/01/24 History
pantoprazole 40 mg tablet,delayed 40 mg PO BID Gastrointestinal Issue 05/02/24 11/01/24 History
release (Protonix)
tiotropium bromide 2.5 2 puff inhalation DAILY 05/02/24 11/01/24 History
mcg/actuation mist for inhalation Lung/Breathing Issues
empagliflozin 25 mg tablet 25 mg PO DAILY Diabetes 10/19/24 11/01/24 History
fluticasone 100 mcg-salmeterol 50 1 inh inhalation R BID 10/19/24 11/01/24 History
mcg/dose blistr powdr for Lung/Breathing Issues
inhalation (Advair Diskus)
magnesium oxide 400 mg PO BID Supplement 10/19/24 11/01/24 History
lidocaine 4 % topical patch 1 patch topical DAILY #10 ea 10/23/24 11/01/24 Rx
furosemide 20 mg tablet (Lasix) 20 mg PO DAILY Fluid 11/01/24 11/01/24 History
Retention/Swelling
polyethylene glycol 3350 17 gram 17 g PO DAILYPRN PRN constipation 11/01/24 11/01/24 History
oral powder packet
Review of Systems
-
History Source: Patient
All other systems: Negative unless noted
Constitutional: Reports No Symptoms
EENT: Reports No Symptoms
Respiratory: Reports No Symptoms
Cardiac: Reports No Symptoms
Abdomen/GI: Reports No Symptoms
: Reports No Symptoms
Musculoskeletal: Reports Muscle Pain
Skin: Reports No Symptoms
Neurological: Reports No Symptoms
Physical Exam
Vital Signs
Temp Pulse Resp BP Pulse Ox
97.8 F 74 18 127/70 96
11/03/24 11:10 11/03/24 11:10 11/03/24 11:10 11/03/24 11:10 11/03/24 11:10
Lab Results
11/03/24 05:29
11/03/24 05:29
Physical Exam
General: No Apparent Distress
HEENT: Normocephalic and Atraumatic
Respiratory: Non Labored Respirations
Cardiac: Negative JVD
GI: Soft and Non Tender
Musculoskeletal: No Clubbing, No Cyanosis and No Edema
Skin: Warm
Neuro: Awake, Alert and Oriented
Psych: Calm
Assessment / Plan
-
74 yo male s/p removal of infected aortic endograft, ax-bifem bypass with collection by CT with in the retroperitoneum
Plan:
Unclear if back pain is related to the retroperitoneal findings. Agree with IR evaluation for possible drainage of the collection and sampling of the fluid.
Data Reviewed
-
CT Scan: Discussed with Patient
Labs: Labs Reviewed by me
--- NOTE | 2024-11-03 14:34 | W.PN.HOSP.TC ---
Today's Communication/Plan
-
Continue with pain regimen. Continue to hold Eliquis.
IR for aspiration of the left retroperitoneal hematoma/collection.
Await vascular input.
Assessment / Plan
Assessment / Plan
#Acute lower abdominal pain
#Persistent stranding and mild lymphadenopathy within the retroperitoneum
#12.1 x 9.3 x 3.8 cm left retroperitoneal collection.
-possible related infection although clinically not appearing so
-Vascular Consulted as s/p explant of infected aortic stent graft along with ax bi fem bypass presented to [facility] s/p fall;
-IR for IR drainage once discussed with vascular
-Empiric Abx
-Pain management
-Hold off his Eliquis as hematoma is a possibility especially there is no fever or leukocytosis. Holding Eliquis discussed with the patient is increased risk of the thromboembolism
-H&H stable
CHARISSE v Chronic kidney disease:
Scr 1.1 on 10/19; now 1. 8
-Stop lasix
-avoid nephrotoxic agents
- Follow for now
#COPD
Stable
continue inhalers
#Paroxysmal atrial fibrillation-currently in sinus rhythm. Hold Eliquis
#Diabetes: He is on empagliflozin and metformin, hold metformin
#Hypertension
#HLD
-cont home meds
CODE STATUS full code
DVT prophylaxis SCD while holding Eliquis
Anticipated Discharge: > 48 hours
Subjective/Interval History
-
Date of Service: November 03, 2024
Continued pain in the back. No fever chills.
Denies any nausea vomiting. Denies any shortness of breath or chest pain.
No lightheadedness.
Objective Data
-
Labs:
Laboratory Results
11/03/24
05:29
WBC 6.9
Hgb 9.3 L
Hct 28.2 L
Plt Count 198
Sodium 140
Potassium 4.6
Chloride 109 H
Carbon Dioxide 24
BUN 27 H
Creatinine 1.8 H
Glucose 130 H
Calcium 8.6
Vital Signs:
Vital Signs
Temp Pulse Resp BP Pulse Ox
97.8 F 74 18 127/70 96
11/03/24 11:10 11/03/24 11:10 11/03/24 11:10 11/03/24 11:10 11/03/24 11:10
I&O
11/02/24 11/03/24 11/04/24
06:59 06:59 06:59
Intake Total 1057 / 1057 1630 / 1630 50 / 50
Output Total 715 / 715 970 / 970 250 / 250
Balance 342 / 342 660 / 660 -200 / -200
Physical Exam
-
General: Comfortable
Respiratory: Non Labored Respirations and Accessory Resp Muscle Use; Negative Clear to Auscultation
Cardiac: Regular Rhythm and S1/S2; Negative Tachycardic
GI: Soft and Nontender
Genito-urinary: Costovertebral Angle Tend (Some discomfort in the right side of severe ankle area. CT showed left RP hematoma)
Neuro: AO x 3
Psych: Calm; Negative Confused
Data Reviewed
-
Labs: Labs Reviewed by me
--- NOTE | 2024-11-03 14:56 | W.PN.UPDATE ---
Update Note
Progress Note Update
Seen and examined with [employer]'s. Full consultation to follow. Known to me status post excision of infected aortic endograft (and revascularization with axillary bifemoral bypass). Cultures are growing out Pseudomonas. Patient with history of liver
transplant, immunosuppression. Concern for biliary tree source. Had returned with back pain, right sided back pain prior (see prior notes earlier in the month). At that time underwent CT guided drainage of left retroperitoneal collection. Note
indicates straw-colored fluid. Cultures grew out no bacteria. Was doing well. Per patient he developed recurrent pain. Sounds like acutely but unclear. Does not seem to be having significant pain currently. It is an intermittent phenomenon.
Mostly right back pain he notes. CT scan repeat 11/01/2024 demonstrates retroperitoneal collection again noted. On exam he is nontoxic-appearing. He is afebrile. His abdomen is soft, nondistended, nontender. Feet are warm with good perfusion.
Plan/unclear to me whether his back pain is related to these retroperitoneal findings. Agree with IR evaluation for possible drainage of the collection and sampling of the fluid. Of note, he has no residual prosthetic material.
[2024-11-03 17:23] LABS: Glucose - Point of Care 95 mg/dl (70-99)
[2024-11-03] MEDS: LIPITOR 40 MG PO (17:31)
[2024-11-04 01:11] LABS: Glucose - Point of Care 139 mg/dl (70-99)
[2024-11-04 03:00] VITALS: BP 137/68
[2024-11-04] MEDS: MORPHINE SULFATE 2 MG IV (03:17)
[2024-11-04] MEDS: ZOSYN 50 IV ×2 (05:24→11:41)
[2024-11-04 05:33] LABS: Glucose - Point of Care 101 mg/dl (70-99)
[2024-11-04 07:10] VITALS: BP 132/69
[2024-11-04] MEDS: SPIRIVA RESPIMAT 2.5 MCG 2 PUFF INH (07:15)
[2024-11-04] MEDS: ADVAIR HFA 45/21 MCG INHALER 2 PUFF INH ×2 (07:15→19:33)
[2024-11-04 07:19] LABS: Glucose - Point of Care 118 mg/dl (70-99)
[2024-11-04 07:39] LABS: Hematocrit 28.8 % (39.0-52.0); Hemoglobin 9.7 g/dL (13.0-18.0); Mean Corp Hgb Conc. 33.7 g/dL (33.0-37.0); Mean Corpuscular Volume 92.9 fL (80.0-94.0); Platelet Count 201 10^3/uL (130-400); Red Cell Dist. Width 15.2 % (11.5-14.5)
[2024-11-04] MEDS: PROTONIX 40 MG PO ×2 (08:04→19:38)
[2024-11-04] MEDS: TOPROL XL 50 MG PO (08:04)
[2024-11-04] MEDS: LIDOCAINE 4% PATCH 1 PATCH TOPICAL (08:04)
[2024-11-04] MEDS: FARXIGA 10 MG PO (08:04)
[2024-11-04] MEDS: LYRICA 200 MG PO ×2 (08:04→19:38)
[2024-11-04] MEDS: PROGRAF 2 MG PO ×2 (08:04→19:38)
[2024-11-04] MEDS: NORVASC 2.5 MG PO (08:04)
[2024-11-04] MEDS: MAGNESIUM OXIDE 400 MG PO ×2 (08:04→19:38)
[2024-11-04 08:15] LABS: Blood Urea Nitrogen 26 mg/dl (9-20); Calcium 9.0 mg/dl (8.4-10.2); Carbon Dioxide 24 mmol/L (22-30); Chloride 108 mmol/L (98-107); Estimated Creatinine Clearance 41 ml/min; Glucose 113 mg/dl (70-99); Potassium 4.4 mmol/L (3.5-5.1); Sodium 139 mmol/L (135-145); eGFR 41.52
--- NOTE | 2024-11-04 10:13 | W.PN.HOSP.TC ---
Today's Communication/Plan
-
And fluid cell count and fungal culture. Consult ID.
Resume Eliquis.
Assessment / Plan
Assessment / Plan
#Acute lower abdominal pain/back pain
-Unclear etiology. Doubt it is all emanating from the left retroperitoneal collection.
- No associated GI or symptoms. CT of the abdomen pelvis showed mild intrahepatic and extrahepatic biliary ductal dilatation with small volume pneumobilia similar to before. Gallbladder surgically absent. Bilirubin is normal. Mild elevated
alkaline phosphatase noted but he also has pubic rami pressure. LFTs are normal. Lipase is normal. No right upper quadrant tenderness. Doubt this is GI related. No abdominal tenderness today
-Sounds like a back pain from his vertebral/paravertebral area. Recent x-rays of lumbar spine and thoracic spine shows Degenerative changes, most prominent involving the lower thoracic and lumbar spine which goes with the area of his discomfort and
tenderness on palpation. No compression fractures noted. Persistent pain consider outpatient MRI of the thoracic/lumbar spine.
#Persistent stranding and mild lymphadenopathy within the left retroperitoneum
#12.1 x 9.3 x 3.8 cm left retroperitoneal collection.
-s/p explant of infected aortic stent graft along with ax bi fem bypass presented to [facility] s/p fall;
- S/p IR drainage of collection 11/03-showed much lower volume compared to recent drainage-40 mL of clear yellow fluid aspirated. ELLIOTT drain in place which is draining 30 mL so far. Clinically not acting like infection-no fevers no white count on
admission. Routine bacterial culture were added yesterday. I would also add fungal cultures and cell count today. Consult ID and if think this is more reactive then will discontinue antibiotics. He is supposed to be on Cipro for chronic
suppression.
-Empiric Abx
-Pain management
- Resume his Eliquis as no hematoma
-H&H stable
CHARISSE v Chronic kidney disease:
Scr 1.1 on 10/19; now 1. 7
-Stop lasix
-avoid nephrotoxic agents
- Follow for now
#COPD
Stable
continue inhalers
#Paroxysmal atrial fibrillation-currently in sinus rhythm. Resume Eliquis
#Diabetes: He is on empagliflozin and metformin, hold metformin
#Hypertension
#HLD
-cont home meds
CODE STATUS full code
DVT prophylaxis SCD while holding Eliquis
Anticipated Discharge: 24 - 48 hours
Subjective/Interval History
-
Date of Service: November 04, 2024
Today patient not using much of IV pain medication. He says he does not want to use it as he wants to go home and he thinks using it might keep him here.
He thinks his pain is mostly coming from his spine. Denies any pelvic pain.
Denies any abdominal pain.
Denies any nausea vomiting and tolerating diet.
Objective Data
-
Labs:
Laboratory Results
11/04/24
07:15
WBC 6.8
Hgb 9.7 L
Hct 28.8 L
Plt Count 201
Sodium 139
Potassium 4.4
Chloride 108 H
Carbon Dioxide 24
BUN 26 H
Creatinine 1.7 H
Glucose 113 H
Calcium 9.0
Vital Signs:
Vital Signs
Temp Pulse Resp BP Pulse Ox
97.9 F 71 16 132/69 97
11/04/24 07:10 11/04/24 08:04 11/04/24 07:20 11/04/24 08:04 11/04/24 07:20
I&O
11/03/24 11/04/24 11/05/24
06:59 06:59 06:59
Intake Total 1630 / 1630 855 / 855 480 / 480
Output Total 970 / 970 430 / 430 200 / 200
Balance 660 / 660 425 / 425 280 / 280
Physical Exam
-
General: Comfortable
Respiratory: Non Labored Respirations; Negative Accessory Resp Muscle Use
Cardiac: Regular Rhythm and S1/S2
GI: Soft, Nontender, Nondistended and Normal Bowel Sounds
Musculoskeletal: Other (Some discomfort in the left retroperitoneal area. There is a drain which is draining clear yellow liquid. He also has discomfort on palpation to the right of upper lumbar/lower thoracic area and as well as right
retroperitoneal/costophrenic area. No spinal tenderness.)
Neuro: AO x 3
Psych: Calm
Data Reviewed
-
Labs: Labs Reviewed by me
[2024-11-04] MEDS: ULTRAM 25 MG PO ×2 (10:59→17:16)
[2024-11-04] MEDS: SENOKOT-S 1 TABLET PO (10:59)
[2024-11-04] MEDS: ELIQUIS 5 MG PO ×2 (11:00→19:38)
--- NOTE | 2024-11-04 11:19 | CM ---
CM following re: discharge planning.
Reviewed pt' chart, met with [pt.
According to pt most likely will be ready for discharge tomorrow. Pt is aware , expressed his agreement and pt expressed his very strong request to return back home at discharge with [facility] services. Pt stated he hired a caregiver and she
will come to his house 2 times per day to help. Also, pt stated he has 3 supportive children, daughter lives 3 miles away and helps as needed. Pt stated his daughter will transport home at discharge.
IMM reviewed, placed on chart, pt has a cpy.
[facility] liaison following and pt is accepted for services. Per pt might need VN services for drain care.
[facility] discharge instructions fax: [phone]
D/C plan: home with [facility], caregiver and family support. Daughter to transport at discharge.
CM will follow with discharge plan updates as needed.
[2024-11-04 11:42] LABS: Glucose - Point of Care 135 mg/dl (70-99)
[2024-11-04 11:53] LABS: Body Fluid Second Tech AP
--- NOTE | 2024-11-04 12:13 | CON.ID ---
Consultation
-
Date/Time Consultation Requested: November 04, 2024 0958
Date/Time Consultation Performed: November 04, 2024 1213
Requesting Provider: Dr. Josué Ross
Performing Provider: Dr. Olivia Hartley
Reason for Consultation: Persistent left retroperitoneal fluid collection
Chief Complaint / Past History
Chief Complaint
Back pain
History of Present Illness
73-year-old male known to me with history of liver transplant on tacrolimus, CAD, A-fib on Eliquis, history of abdominal aortic aneurysm repair with aorto by iliac stent graft infected with Pseudomonas s/p explant, R axillary-bifem bypass (04/2024)
on cipro chronic suppression (as per Vascular request) who presented to ER to on 11/01 for acute on chronic low back pain and abd pain. Of note, patient was recently hospitalized from October 19�[place] 4 for right mid back pain after a fall.
CAT scan showed left retroperitoneal collection. He underwent IR guided aspiration of 250 cc thin fluid, culture negative. He was then discharged to home to continue chronic suppression with Cipro. He reports chronic low back pain and occasional
intermittent abd pain. He had flare up of the back pain. His PCP recommended ED evaluation for the back pain as well as for CHARISSE. He therefore presented to ED on November 01 which led to another CAT scan of the abdomen and pelvis, again showing
left retroperitoneal collection 12 x 9 x 4 cm. 11/03 He underwent IR drain placement, 40 cc thin yellow fluid output. He is currently on Zosyn. He denies fevers or chills. No nausea, vomiting, or diarrhea. No cough. His back pain is
better.Abdominal pain resolved. No urine symptoms. No flank pain.
Past History
Additional Past Medical History:
AAA [id number] stent graft infection with Pseudomonas s/p Right axillary bifemoral artery bypass with new ringed [place] graft ; explant of entirety of infected aortic endograft, wide debridement of retroperitoneum (05/01/24) s/p 6 weeks of
ceftazidime followed by cipro 500mg daily suppression (as requested by Dr. Vaughn Vascular).
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
Paroxysmal atrial fibrillation
CAD
Hypertension
Neuropathy
COPD
Cholecystectomy
Back surgery
Left ischial tuberosity fracture from fall
History of multiple bile duct stents
Allergy History:
No Known Allergies Allergy (Verified 11/01/24 09:39)
Medications Reviewed: Yes
Current Antibiotics:
Zosyn
Social History
Tobacco: Former Smoker
Alcohol: Occasional
Drug: None
Family History
Family History: Not Pertinent
Review of Systems
Review of Systems
General: Negative Fever, Chills or Change in Appetite
HEENT: Negative Sinus Problems
Cardiovascular: Negative Chest Pain or Dyspnea
Respiratory: Negative Dyspnea or Cough
Gasteroenterology: Negative Nausea, Vomiting or Diarrhea
Genital / Urological: Negative Dysuria or Flank Pain
Endocrine: Negative Weakness
Vital Signs
Temp Pulse Resp BP Pulse Ox
97.9 F 71 16 132/69 97
11/04/24 07:10 11/04/24 08:04 11/04/24 07:20 11/04/24 08:04 11/04/24 07:20
Physical Exam
Physical Exam
Constitutional: No Acute Distress and Comfortable
Eyes: No Conjunctival Hemorrhage and Sclera Anicteric
Cardiovascular: Regular Rate and S1/S2
Pulmonary: Clear
Gastrointestinal: Soft, Non Tender, Non Distended, Normal Bowel Sounds and Other (left retroperitoneal ELLIOTT drain: clear dark yellow fluid)
Genito-Urinary: Negative CVA Tenderness
Extremities: Edema (B LE)
Musculoskeletal: Negative Spinal Tenderness
Neurological: AO x 3
Lab / Diagnostic Study Results
11/04/24 07:15
11/04/24 07:15
Abs Immat Gran (auto) 0.2 10^3/uL (0-0.05) H 11/01/24 09:49
Absolute Neuts (auto) 5.5 10^3/uL (1.4-6.5) 11/01/24 09:49
Absolute Lymphs (auto) 1.1 10^3/uL (1.2-3.4) L 11/01/24 09:49
Absolute Monos (auto) 1.4 10^3/uL (0.1-0.6) H 11/01/24 09:49
Absolute Basos (auto) 0.1 10^3/uL (0-0.2) 11/01/24 09:49
Immature Gran % 2.3 % (0-0.5) H 11/01/24 09:49
Neutrophils % 66.4 % (42.2-75.2) 11/01/24 09:49
Lymphocytes % 13.0 % (20.5-51.1) L 11/01/24 09:49
Monocytes % 16.5 % (1.7-9.3) H 11/01/24 09:49
Eosinophils % 1.0 % (0-6) 11/01/24 09:49
Basophils % 0.8 % (0-2) 11/01/24 09:49
PT 21.8 Sec (11.4-14.6) H 11/01/24 10:16
INR 1.88 11/01/24 10:16
Microbiology Results
Micro:
11/03/24 16:00 Fungal Culture - Preliminary
Fluid Culture in progress.
Positive cultures are reported as soon as detected.
Final report to follow in four to five weeks.
11/03/24 16:00 Body Fluid Culture - Preliminary
Fluid No Growth After 18-24 Hours
Gram Stain - Preliminary
11/01/24 CT a/p: Changes of prior infrarenal endovascular graft explant with persistent stranding and mild lymphadenopathy within the retroperitoneum suggestive of ongoing infection. There is a 12.1 x 9.3 x 3.8 cm left retroperitoneal collection. new
sclerotic focus within the right inferior pubic ramus which may represent a subacute fracture.
Assessment / Plan
# Left retroperitoneal fluid collection
- Suspect post-op seroma
- 10/22 fluid cx neg
- 11/03 fluid cx neg to date. fungal cx pending
- DC Zosyn
# CHARISSE
- creatinine normal 10/19
- Check urine eosinophils
# Back pain - chronic
# Recent hx AAA stent graft infection with Pseudomonas s/p explant s/p Right axillary - bifem bypass (04/2024) s/p 6 weeks IV ceftazidime followed by chronic suppression with cipro (requested by Dr. Vaughn despite no retained graft).
- Canr resum daily cipro 500mg.
# Liver transplant on tacrolimus
Care Review
Plan reviewed with: Physician (Dr. Miguel Ross)
[2024-11-04 15:10] VITALS: BP 138/65
--- NOTE | 2024-11-04 15:43 | W.CON.NEPH ---
Consultation
-
Date/Time Consultation Requested: 11/04/2024 at 1 PM
Date/Time Consultation Performed: 11/04/2024 at 3:30 PM
Requesting Provider: Josué Ross
Performing Provider: Dr. Rosales
Reason for Consultation: Acute on chronic kidney disease
Medical History
-
Chief Complaint: Acute on chronic kidney disease
History of Present Illness:
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
Earlier in the month he was transferred here from [place] for similar symptoms. At that time underwent CT guided drainage of left retroperitoneal collection. Note indicates straw-colored fluid. Cultures grew out no bacteria and was discharged on
antibiotics.
He developed acute kidney injury on October 20 on that admission was discharged with a creatinine of 1.5
Presents with a creatinine of 1.7
Prior to October 20 his creatinine was 1-1.3
On this admission he was again found on CT scan repeat 11/01/2024 demonstrates retroperitoneal collection again noted. He is status post drain placement by IR
Renal consultation for elevated creatinine of 1.7
Urinalysis bland no protein or hematuria, no white blood cells
Past Medical History
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
Past Surgical History: Other (Abdominal aortic aneurysm graft with aortobifemoral graft and stent infection and removal, Right axillary bifemoral bypass with ringed [place] graft in April 2024, Left knee arthroscopy, Liver transplant, Back surgery)
Social History
Tobacco: Non-Smoker
Alcohol: None
Family History
Family History: Not Pertinent
Allergies / Home Medications
Allergy/AdvReac Type Severity Reaction Status Date / Time
No Known Allergies Allergy Verified 11/01/24 09:39
�Medication �Instructions �Recorded �Confirmed �Type
apixaban 5 mg tablet (Eliquis) 5 mg PO BID #60 tabs 11/30/18 11/01/24 Rx
clopidogrel 75 mg tablet 75 mg PO DAILY #30 tabs 11/30/18 11/01/24 Rx
albuterol sulfate 90 mcg/actuation 2 puff inhalation R Q6HPRN PRN sob 04/25/24 11/01/24 History
aerosol inhaler
amlodipine 2.5 mg tablet 2.5 mg PO DAILY Blood Pressure 04/25/24 11/01/24 History
atorvastatin 80 mg tablet 40 mg PO DAILY High Cholesterol 04/25/24 11/01/24 History
metformin 500 mg tablet 500 mg PO DAILY Diabetes 04/25/24 11/01/24 History
metoprolol succinate 100 mg 50 mg PO DAILY Heart 04/25/24 11/01/24 History
tablet,extended release 24 hr Disease/Condition
pregabalin 200 mg capsule 200 mg PO BID mild Pain 04/25/24 11/01/24 History
tacrolimus 0.5 mg capsule, 2 mg PO BID Transplant 04/25/24 11/01/24 History
immediate-release
therapeutic multivitamin 1 tab PO DAILY Supplement 04/25/24 11/01/24 History
pantoprazole 40 mg tablet,delayed 40 mg PO BID Gastrointestinal Issue 05/02/24 11/01/24 History
release (Protonix)
tiotropium bromide 2.5 2 puff inhalation DAILY 05/02/24 11/01/24 History
mcg/actuation mist for inhalation Lung/Breathing Issues
empagliflozin 25 mg tablet 25 mg PO DAILY Diabetes 10/19/24 11/01/24 History
fluticasone 100 mcg-salmeterol 50 1 inh inhalation R BID 10/19/24 11/01/24 History
mcg/dose blistr powdr for Lung/Breathing Issues
inhalation (Advair Diskus)
magnesium oxide 400 mg PO BID Supplement 10/19/24 11/01/24 History
lidocaine 4 % topical patch 1 patch topical DAILY #10 ea 10/23/24 11/01/24 Rx
furosemide 20 mg tablet (Lasix) 20 mg PO DAILY Fluid 11/01/24 11/01/24 History
Retention/Swelling
polyethylene glycol 3350 17 gram 17 g PO DAILYPRN PRN constipation 11/01/24 11/01/24 History
oral powder packet
Review of Systems
-
No fevers or chills
No urinary frequency or urgency
All other systems: Negative unless noted
Physical Exam
Vital Signs
Vital Signs
Temp Pulse Resp BP Pulse Ox
98.6 F 73 18 138/65 95
11/04/24 15:10 11/04/24 15:10 11/04/24 15:10 11/04/24 15:10 11/04/24 15:10
Lab Results
WBC 6.8 10^3/uL (4.8-10.8) 11/04/24 07:15
RBC 3.10 10^6/uL (4.70-6.10) L 11/04/24 07:15
Hgb 9.7 g/dL (13.0-18.0) L 11/04/24 07:15
Hct 28.8 % (39.0-52.0) L 11/04/24 07:15
Plt Count 201 10^3/uL (130-400) 11/04/24 07:15
Sodium 139 mmol/L (135-145) 11/04/24 07:15
Potassium 4.4 mmol/L (3.5-5.1) 11/04/24 07:15
Chloride 108 mmol/L (98-107) H 11/04/24 07:15
Carbon Dioxide 24 mmol/L (22-30) 11/04/24 07:15
BUN 26 mg/dl (9-20) H 11/04/24 07:15
Creatinine 1.7 mg/dL (0.7-1.3) H 11/04/24 07:15
eGFR 41.52 11/04/24 07:15
Glucose 113 mg/dl (70-99) H 11/04/24 07:15
Calcium 9.0 mg/dl (8.4-10.2) 11/04/24 07:15
Albumin 3.4 g/dl (3.5-5.0) L 11/01/24 09:49
Physical Exam
General no acute distress
HEENT no cephalic atraumatic extraocular muscle intact no scleral icterus no JVD neck supple
lungs clear to auscultation bilateral
heart regular S1-S2 positive
abdomen soft nontender positive bowel sounds
extremities no edema pulses present bilateral
Neurologically nonfocal alert and oriented x 3
Skin no lesions no abrasions no petechiae
Psych normal affect no bizarre behavior
Data Reviewed
-
CT Scan: Image Personally Visualized and interpreted
Labs: Labs Reviewed by me, Discussed with Physician, Discussed with Patient and Discussed with Family
Assessment/Plan
-
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
Earlier in the month he was transferred here from [place] for similar symptoms. At that time underwent CT guided drainage of left retroperitoneal collection. Note indicates straw-colored fluid. Cultures grew out no bacteria and was discharged on
antibiotics.
He developed acute kidney injury on October 20 on that admission was discharged with a creatinine of 1.5
Presents with a creatinine of 1.7
Prior to October 20 his creatinine was 1-1.3
On this admission he was again found on CT scan repeat 11/01/2024 demonstrates retroperitoneal collection again noted. He is status post drain placement by IR
Renal consultation for elevated creatinine of 1.7
Urinalysis bland no protein or hematuria, no white blood cells
Impression
Acute kidney injury
CKD stage IIIb at baseline
Retroperitoneal collection recurrent
Overall vasculopath
Liver transplant on tacrolimus
Plan.
[place] urinalysis
Unlikely this is acute interstitial nephritis as creatinine was elevated upon transfer from [place] at last admission when antibiotics were first initiated
could have developed atypical ATN
No obstructive pathology
Renal dose all medications appropriate for current GFR
Tacrolimus level on 10/20-. last admission
No indication to recheck tacrolimus level on this admission
Okay to check urine eosinophils though low yield
Will hold Lasix= echo reviewed from May preserved EF/mild lower extremity edema
I will give 1 L of normal saline with transient hypotension
[2024-11-04 16:59] LABS: Glucose - Point of Care 114 mg/dl (70-99)
[2024-11-04] MEDS: LIPITOR 40 MG PO (17:16)
[2024-11-04] MEDS: NSS 1000 IV (17:17)
[2024-11-04 18:23] LABS: Body Fluid for Eosinophils No Eosinophils seen
[2024-11-04 19:00] VITALS: BP 118/67
[2024-11-04 22:15] LABS: Glucose - Point of Care 135 mg/dl (70-99)
[2024-11-04 23:00] VITALS: BP 124/60
[2024-11-05 00:22] LABS: Glucose - Point of Care 126 mg/dl (70-99)
[2024-11-05] MEDS: ULTRAM 25 MG PO ×2 (00:26→07:52)
[2024-11-05] MEDS: NSS 1000 IV (00:27)
--- NOTE | 2024-11-05 02:48 | DOWNTIME ---
There was a [employer] Downtime on 11/05/2024 from 0100 to 11/05/2024 at 0215. Downtime documentation of patient's care, including medication administrations, has been reconciled in the electronic record per guidelines. Refer to the
patient's paper chart under the miscellaneous tab to see printed paper medication records and downtime forms.
[2024-11-05 03:00] VITALS: BP 137/74
[2024-11-05 05:37] LABS: Glucose - Point of Care 132 mg/dl (70-99)
[2024-11-05] MEDS: ADVAIR HFA 45/21 MCG INHALER 2 PUFF INH (07:13)
[2024-11-05] MEDS: SPIRIVA RESPIMAT 2.5 MCG 2 PUFF INH (07:14)
[2024-11-05 07:50] VITALS: BP 137/79
[2024-11-05 07:50] LABS: Glucose - Point of Care 121 mg/dl (70-99)
[2024-11-05] MEDS: SENOKOT-S 1 TABLET PO (07:50)
[2024-11-05] MEDS: NORVASC 2.5 MG PO (07:50)
[2024-11-05] MEDS: PROTONIX 40 MG PO (07:50)
[2024-11-05] MEDS: MAGNESIUM OXIDE 400 MG PO (07:50)
[2024-11-05] MEDS: PROGRAF 2 MG PO (07:51)
[2024-11-05] MEDS: CIPRO 500 MG PO (07:51)
[2024-11-05] MEDS: ELIQUIS 5 MG PO (07:51)
[2024-11-05] MEDS: TOPROL XL 50 MG PO (07:51)
[2024-11-05] MEDS: LYRICA 200 MG PO (07:51)
[2024-11-05] MEDS: FARXIGA 10 MG PO (07:51)
[2024-11-05] MEDS: LIDOCAINE 4% PATCH 1 PATCH TOPICAL (07:52)
[2024-11-05 08:03] LABS: Hematocrit 29.0 % (39.0-52.0); Hemoglobin 9.8 g/dL (13.0-18.0); Mean Corp Hgb Conc. 33.8 g/dL (33.0-37.0); Mean Corpuscular Volume 92.1 fL (80.0-94.0); Platelet Count 222 10^3/uL (130-400); Red Cell Dist. Width 15.0 % (11.5-14.5)
[2024-11-05] MEDS: NSS IV (08:17)
[2024-11-05 08:35] LABS: Blood Urea Nitrogen 21 mg/dl (9-20); Calcium 8.7 mg/dl (8.4-10.2); Carbon Dioxide 22 mmol/L (22-30); Chloride 109 mmol/L (98-107); Estimated Creatinine Clearance 47 ml/min; Glucose 127 mg/dl (70-99); Potassium 4.3 mmol/L (3.5-5.1); Sodium 138 mmol/L (135-145); eGFR 48.25
--- NOTE | 2024-11-05 09:38 | W.PN.ID1 ---
Date of Service
Date of Service: November 05, 2024
Today's Communication
Continue cipro
Assessment / Plan
# Recurrence of Left retroperitoneal fluid collection
- 10/22 IR aspiration 250 cc thin fluid : fluid cx neg
- 11/03 IR drain placement thin fluid cx neg to date. fungal cx pending
- Suspect post-op seroma
- Work-up for possible urinoma in progress
10/25 ELLIOTT fluid creatinine 1.6; serum creatinine 1.7
To repeat fluid creatinine today per hospitalist. Today serum cr is 1.5.
# CHARISSE- improving
- creatinine normal 10/19
- urine eosinophils negative
-Nephrology following
# Back pain - chronic
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 Vaughn despite no retained graft).
- Continue daily cipro 500mg.
# Liver transplant on tacrolimus
Chief Complaint
-: Other (fluid collection)
Subjective / Review of Systems
Feels cold. Low back pain mild.
Vital Signs / Physical Exam
Vital Signs
Vital Signs
Temp Pulse Resp BP Pulse Ox
98.0 F 85 18 137/79 96
11/05/24 07:50 11/05/24 07:50 11/05/24 07:50 11/05/24 07:50 11/05/24 07:50
Physical Exam
Constitutional: No Acute Distress and Comfortable
Cardiovascular: Regular Rate and S1/S2
Pulmonary: Clear
Gastrointestinal: Soft, Non Tender, Non Distended and Other (left retroperitoneal ELLIOTT drain: clear dark yellow fluid)
Genito-Urinary: Negative CVA Tenderness
Extremities: Edema
Neurological: AO x 3
Objective Data
Lab Data
Lab Results
11/05/24 07:24
11/05/24 07:24
PT 21.8 Sec (11.4-14.6) H 11/01/24 10:16
INR 1.88 11/01/24 10:16
Estimated Creat Clear 47 ml/min 11/05/24 07:24
Total Bilirubin 0.9 mg/dl (0.2-1.3) 11/01/24 09:49
AST 21 U/L (17-59) 11/01/24 09:49
ALT 12 U/L (0-50) 11/01/24 09:49
Alkaline Phosphatase 163 U/L (38-126) H 11/01/24 09:49
Most recent labs reviewed.
Micro Results:
11/03/24 16:00 Fungal Culture - Preliminary
Fluid Culture in progress.
Positive cultures are reported as soon as detected.
Final report to follow in four to five weeks.
11/03/24 16:00 Body Fluid Culture - Preliminary
Fluid No Growth After 18-24 Hours
Gram Stain - Preliminary
11/01/24 CT a/p: Changes of prior infrarenal endovascular graft explant with persistent stranding and mild lymphadenopathy within the retroperitoneum suggestive of ongoing infection. There is a 12.1 x 9.3 x 3.8 cm left retroperitoneal collection. new
sclerotic focus within the right inferior pubic ramus which may represent a subacute fracture.
Care Review
Plan reviewed with: Physician (Dr. Ross)
--- NOTE | 2024-11-05 10:13 | W.PN.VS ---
Addendum entered and electronically signed by Willis Brannon MD 11/05/24 14:54:
Seen and examined with HAROLDO Camargo earlier this a.m. This is a late entry. Patient without any new complaints. Notes chronic on and off back pain. Drainage noted. Serous appearing. No sinister findings. White blood cell count within normal
limits. No growth and fluid so far. Plan/as discussed and noted below.
Original Note:
Today's Communication / Plan
-
Patient seen and examined at bedside with Dr. Willis Brannon M.D., below plan reviewed with attending
Assessment/Plan
-
Assessment: 74 year old male s/p explant of infected aortic stent graft along with ax bi fem bypass with chronic back pain and CT scan demonstrating RP collection status post IR drain placement suspect seroma
Plan:
No current indication of infectious process, we will sign off please call with questions or concerns
Follow-up placed in discharge instructions
Subjective Data
-
Date of Service: November 05, 2024
Patient seen examined at bedside, endorses chronic back pain is persistent and unchanged. However, he does note that this is his typical back pain that he has had for years. Denies new acute changes to back pain or any abdominal pain.
Objective Data
-
Vital Signs
Temp Pulse Resp BP Pulse Ox
98.0 F 85 18 137/79 96
11/05/24 07:50 11/05/24 07:50 11/05/24 07:50 11/05/24 07:50 11/05/24 07:50
Intake and Output
11/04/24 11/05/24 11/06/24
06:59 06:59 06:59
Intake Total 855 / 855 3080 / 3080
Output Total 430 / 430 1100 / 1100
Balance 425 / 425 1979 / 1979
Intake:
Oral fluids 705 / 705 1280 / 1280
IV fluids (Total) 1750 / 1750
IV piggybacks 150 / 150
Output:
Drain Output (Total)
Left Abdomen Placed in IR
Urine, Voided 400 / 400 1050 / 1050
Other:
How many times incontinent 1
MODERATE amount urine
Number of approximated MODERATE 1
amounts of urine
Lab Results
11/05/24 07:24
11/05/24 07:24
Calcium 8.7 mg/dl (8.4-10.2) 11/05/24 07:24
Total Bilirubin 0.9 mg/dl (0.2-1.3) 11/01/24 09:49
AST 21 U/L (17-59) 11/01/24 09:49
ALT 12 U/L (0-50) 11/01/24 09:49
Alkaline Phosphatase 163 U/L (38-126) H 11/01/24 09:49
Total Protein 6.7 g/dl (6.3-8.2) 11/01/24 09:49
Albumin 3.4 g/dl (3.5-5.0) L 11/01/24 09:49
Physical Exam
-
No apparent distress, resting in chair comfortably
No tachycardia
No dyspnea on room air
ABD non-tender, non-distended
Abdominal ELLIOTT drain with serous fluid
[2024-11-05 11:05] VITALS: BP 128/79
--- NOTE | 2024-11-05 12:47 | W.PN.HOSP.TC ---
Addendum entered and electronically signed by Josué Ross MD 11/05/24 16:33:
Updated daughter about the findings of left retroperitoneal collection, drainage, fluid culture data. Also advised about the ELLIOTT drain to be in situ and follow daily outputs and get in touch with the PCP for tube check and removal order.
Addendum entered and electronically signed by Josué Ross MD 11/05/24 12:54:
Fluid creatinine less than serum creatinine. Doesn support urinoma.
Original Note:
Today's Communication/Plan
-
Check ultrasound of right leg
DC planning
Assessment / Plan
Assessment / Plan
#Acute lower abdominal pain/back pain
-Unclear etiology. Doubt it is all emanating from the left retroperitoneal collection.
- No associated GI or symptoms. CT of the abdomen pelvis showed mild intrahepatic and extrahepatic biliary ductal dilatation with small volume pneumobilia similar to before. Gallbladder surgically absent. Bilirubin is normal. Mild elevated
alkaline phosphatase noted but he also has pubic rami pressure. LFTs are normal. Lipase is normal. No right upper quadrant tenderness. Doubt this is GI related. No abdominal tenderness
-Sounds like a back pain from his vertebral/paravertebral area. Recent x-rays of lumbar spine and thoracic spine shows Degenerative changes, most prominent involving the lower thoracic and lumbar spine which goes with the area of his discomfort and
tenderness on palpation. No compression fractures noted. Persistent pain consider outpatient MRI of the thoracic/lumbar spine.
#Persistent stranding and mild lymphadenopathy within the left retroperitoneum
#12.1 x 9.3 x 3.8 cm left retroperitoneal collection.
-s/p explant of infected aortic stent graft along with ax bi fem bypass presented to [facility] s/p fall;
- S/p IR drainage of collection 11/03-showed much lower volume compared to recent drainage-40 mL of clear yellow fluid aspirated. ELLIOTT drain in place which is draining 50 mL so far. Clinically not acting like infection-no fevers no white count on
admission. Routine bacterial culture negative. Cell count is mostly mononuclear same chronic process. Appreciate ID input. Antibiotics discontinued. He is supposed to be on Cipro for chronic suppression.
-H&H stable
CHARISSE v Chronic kidney disease:
Scr 1.1 on 10/19; now 1. 5
- Appreciate nephrology input suspected possible atypical ATN. Taylor less likely interstitial nephritis. Urinalysis bland.
- Continue with diuretics per nephrology
Bilateral right more than lower extremity swelling-echo in April 2024 shows EF of 55 to 60% with a mild to moderate MR. Suspect some of but may be dependent. Resume Lasix when okay from nephrology standpoint. Check an ultrasound of the leg as the
calf is tender. He was off Eliquis for his procedures. He is currently back on Eliquis.
#COPD
Stable
continue inhalers
#Paroxysmal atrial fibrillation-currently in sinus rhythm. Continue with Eliquis
#Diabetes: He is on empagliflozin and metformin, hold metformin
#Hypertension
#HLD
-cont home meds
CODE STATUS full code
DVT prophylaxis Eliquis
PT OT eval
Will DC home if okay from nephrology standpoint and depending on ultrasound of leg report
Anticipated Discharge: Today
Subjective/Interval History
-
Date of Service: November 05, 2024
complaints of left ankle area pain - attributes to the leg sequential teds
Back pain is ok -not needing iv pain meds
No abdo pain or N/V
Keen to go home
Objective Data
-
Labs:
Laboratory Results
11/05/24
07:24
WBC 9.9
Hgb 9.8 L
Hct 29.0 L
Plt Count 222
Sodium 138
Potassium 4.3
Chloride 109 H
Carbon Dioxide 22
BUN 21 H
Creatinine 1.5 H
Glucose 127 H
Calcium 8.7
Vital Signs:
Vital Signs
Temp Pulse Resp BP Pulse Ox
97.6 F 78 16 128/79 95
11/05/24 11:05 11/05/24 11:05 11/05/24 11:05 11/05/24 11:05 11/05/24 11:05
I&O
11/04/24 11/05/24 11/06/24
06:59 06:59 06:59
Intake Total 855 / 855 3080 / 3080
Output Total 430 / 430 1100 / 1100
Balance 425 / 425 1979 / 1979
Physical Exam
-
General: No Apparent Distress
Respiratory: Clear to Auscultation and Non Labored Respirations; Negative Accessory Resp Muscle Use
Cardiac: Regular Rhythm and S1/S2; Negative Tachycardic
GI: Soft and Nontender
Musculoskeletal: Edema, Right Lower Extrem (Right more than left; calf tenderness; chronic skin changes bilaterally no evidence of cellulitis) and Edema, Left Lower Extrem
Neuro: AO x 3
Psych: Calm
Data Reviewed
-
Labs: Labs Reviewed by me
--- NOTE | 2024-11-05 13:00 | CM ---
CM following re: discharge planning.
Reviewed pt' chart, met with pt.
According to MD pt will be discharged today. Pt is aware, expressed his agreement . Pt stated he hired a caregiver and she will come to his house 2 times per day to help. Also, pt stated he has 3 supportive children, daughter lives 3 miles away and
helps as needed. Pt stated his daughter will transport home.
IMM reviewed yesterday, placed on chart, pt has a copy.
[facility] liaison following and pt is accepted for services. Updated clinical faxed to [facility] discharge instructions fax: [phone]
D/C plan: home with [facility], caregiver and family support. Daughter to transport.
[2024-11-05 13:49] LABS: Glucose - Point of Care 131 mg/dl (70-99)
[2024-11-05 15:10] VITALS: BP 122/62
--- NOTE | 2024-11-05 16:08 | W.PN.NEPH.PH ---
Today's Communication / Plan
-
lasix
Assessment/Plan
-
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
Earlier in the month he was transferred here from [place] for similar symptoms. At that time underwent CT guided drainage of left retroperitoneal collection. Note indicates straw-colored fluid. Cultures grew out no bacteria and was discharged on
antibiotics.
He developed acute kidney injury on October 20 on that admission was discharged with a creatinine of 1.5
Presents with a creatinine of 1.7
Prior to October 20 his creatinine was 1-1.3
On this admission he was again found on CT scan repeat 11/01/2024 demonstrates retroperitoneal collection again noted. He is status post drain placement by IR
Renal consultation for elevated creatinine of 1.7
Urinalysis bland no protein or hematuria, no white blood cells
Impression
Acute kidney injury
CKD stage IIIb at baseline
Retroperitoneal collection recurrent
Overall vasculopath
Liver transplant on tacrolimus
Plan.
ok for lasix 40mg po daily
dc planning
BMP in 1-2 weeks on lasix
-
-
Date of Service: November 05, 2024
CC / HPI / ROS
-
Chief Complaint:
CHARISSE
History of Present Illness:
CHARISSE/Cr down to 1.5
BP stable
RLE edema
drain for RP collection
Review of Systems:
no CP/SOB
c/o RLE edema
Labs
-
Labs:
WBC 9.9 10^3/uL (4.8-10.8) 11/05/24 07:24
RBC 3.15 10^6/uL (4.70-6.10) L 11/05/24 07:24
Hgb 9.8 g/dL (13.0-18.0) L 11/05/24 07:24
Hct 29.0 % (39.0-52.0) L 11/05/24 07:24
Plt Count 222 10^3/uL (130-400) 11/05/24 07:24
Sodium 138 mmol/L (135-145) 11/05/24 07:24
Potassium 4.3 mmol/L (3.5-5.1) 11/05/24 07:24
Chloride 109 mmol/L (98-107) H 11/05/24 07:24
Carbon Dioxide 22 mmol/L (22-30) 11/05/24 07:24
BUN 21 mg/dl (9-20) H 11/05/24 07:24
Creatinine 1.5 mg/dL (0.7-1.3) H 11/05/24 07:24
eGFR 48.25 11/05/24 07:24
Glucose 127 mg/dl (70-99) H 11/05/24 07:24
Calcium 8.7 mg/dl (8.4-10.2) 11/05/24 07:24
Albumin 3.4 g/dl (3.5-5.0) L 11/01/24 09:49
Physical Exam
-
Vital Signs:
Vital Signs
Temp Pulse Resp BP Pulse Ox
97.6 F 78 16 128/79 95
11/05/24 11:05 11/05/24 11:05 11/05/24 11:05 11/05/24 11:05 11/05/24 11:05
Cardiovascular:: Regular rate and rhythm
Respiratory:: Bilateral: CTA
Lung Excursion:: Normal
Abdomen:: Nontender and Soft
Bowel Sounds:: Normal
Extremity Edema:: +1: Left: and +2: Right:
--- NOTE | 2024-11-05 16:21 | W.DCSUMMARY ---
Discharge Summary
Discharge Data
Date of Admission: 11/01/24
Date of Discharge: 11/05/24
-
Pending Results: No
Hospital Course
Primary diagnosis:
Left retroperitoneal fluid collection s/p drainage
Back pain suspected musculoskeletal
Acute kidney injury on chronic kidney disease stage IIIb
Secondary diagnosis:
Liver transplant on tacrolimus
Primary hypertension
Hyperlipidemia
Diabetes mellitus type 2
Hospital course:
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
in by PCP for persistent abdominal pain, abnormal kidney test. Admitting CT of the abdomen pelvis shows reaccumulation of left-sided retroperitoneal collection and raise the concern if it was a hematoma. He recently had that aspirated and the
cultures were negative. He was on Eliquis which was kept on hold and had a repeat drainage which was clear yellow fluid. The cultures were negative again. Definitely there was no hematoma. Clinically it sounds like seroma. ID did not see any
need of further antibiotics. Fluid creatinine to serum creatinine ratio that does not support urinoma. Fungus cultures were pending. Fluid cell count shows more monocytosis. The drain was left in situ and it was draining 50 mL in the last 24
hours. The recommendation was to keep it in until it is less than 10 mL per 24 hours or dries out and then get an order for tube check and removal at that point.
Was seen by vascular also who felt there is no relation to vascular issues.
He was also complaining of back pain which looked more musculoskeletal and recent thoracolumbar spine x-ray showed severe DJD.
There was a concern about abnormal creatinine. Looking back at her prior records on October 20 when he was admitted to [facility] he had developed acute kidney injury and was discharged with a creatinine of 1.5. He came with a creatinine
of 1.7. Prior to October his creatinine was 1-1.3. Renal were consulted. Urine analysis was bland. Dewitt unlikely acute interstitial nephritis, could have developed atypical ATN. No obstructive uropathy noted. They even tried IV fluids for 24
hours without much creatinine improvement.
Due to significant lower extremity edema he was resumed on Lasix and in fact higher dose of 40 mg of Lasix was recommended by nephrology. He was advised to get a repeat BMP next week.
He apparently was supposed to be on ciprofloxacin chronic prophylaxis from post explant of infected aortic endograft. It was represcribed for him.
He was deemed stable for discharge home today with follow-up as outpatient. Case management was consulted for home care.
Consultants on board:
Interventional radiology-Derick Gann
Vascular-Willis Osman
Infectious disease-Olivia Morrow
Nephrology-Ollie Panchal
Portions of this chart may have been created with voice recognition software. Occasional wrong word or 'sound alike' substitutions may have occurred due to the inherent limitations of voice recognition software.
Discharge Plan
-
Patient Disposition: Home with Home Care
Discharge Diagnosis/Procedures: Left retroperitoneal collection status post drain-seems to be seroma, no suggestions of infection; back pain
Diet: 2 Gram Sodium
Activity: As tolerated
Driving Restrictions: Not until seen by your Dr
Bathing Restrictions: None
Blood Work: BMP blood work in one week -arrange through your PCP
Other Services: VN
Activity Restrictions/Additional Instructions:
Follow drainage in the bag- if <10ml in 24 hr obtain a order for tube check and removal from your PCP.
Referrals:
Ollie Rosales DO [Active, Nephrology] - in one month
Referral Note: To follow on kidney function
Odilia Velázquez DO [Family Provider, Family Practice] - in less than 1 week
Willis Brannon MD [Active, Vascular Surgery] - 12/02/24 8:00 am
Derick Cross MD [Active, Radiology]
Referral Note: Call for questions on your drain
Additional Discharge Medication Instructions: You were supposed to be on ciprofloxacin antibiotic for chronic prophylaxis since last admission;if do have those pills already dont need to fill the current prescription; also dose of lasix increased on
this admission.
Prescriptions:
New
acetaminophen 325 mg Tablet
650 mg PO Q4HPRN PRN (Reason: mild pain/QURESHI/temp> 100.4F) Qty: 1 0RF
ciprofloxacin HCl 500 mg Tablet
500 mg PO DAILY Qty: 30 0RF
furosemide [Lasix] 40 mg tablet
40 mg PO DAILY Qty: 30 0RF
Continued
clopidogrel 75 MG tablet
75 mg PO DAILY Qty: 30 11RF
Eliquis 5 MG tablet
5 mg PO BID Qty: 60 3RF
albuterol sulfate 90 mcg/actuation Hfa Aerosol Inhaler
2 puff INHALATION R Q6HPRN PRN (Reason: sob)
atorvastatin 80 mg Tablet
40 mg PO DAILY
therapeutic multivitamin Tablet
1 tab PO DAILY
pregabalin 200 mg Capsule
200 mg PO BID
Patient Comments:
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
metformin 500 mg Tablet
500 mg PO DAILY
metoprolol succinate 100 mg Tablet Extended Release 24 Hr
50 mg PO DAILY
amlodipine 2.5 mg Tablet
2.5 mg PO DAILY
tacrolimus 0.5 mg Capsule
2 mg PO BID
pantoprazole [Protonix] 40 mg Tablet,Delayed Release (Dr/Ec)
40 mg PO BID
tiotropium bromide 2.5 mcg/actuation Mist
2 puff INHALATION DAILY
empagliflozin 25 mg Tablet
25 mg PO DAILY
fluticasone propion-salmeterol [Advair Diskus] 100-50 mcg/dose Blister With Device
1 inh INHALATION R BID
magnesium oxide 400 mg magnesium Tablet
400 mg PO BID
lidocaine 4 % Adhesive Patch,Medicated
1 patch topical DAILY Qty: 10 0RF
Rx Instructions:
Apply to lower back
polyethylene glycol 3350 17 gram powder in packet
17 g PO DAILYPRN PRN (Reason: constipation)
Discontinued
furosemide [Lasix] 20 mg Tablet
20 mg PO DAILY
Discharge Orders:
Discharge Patient (As Directed); Ordered 11/05/24
Ordered By: Josué Ross
Discharge Date and Time
Print Language: AZERI
== END 2024-11-05 17:18 | disposition home health service (06) | DRG 920 ==
LOC: 2 SOUTH 15:49
PROVIDERS: Radiology Vascular & Interventional Radiology; Registered Nurse; ADMITTING PHYSICIAN Internal Medicine; ATTENDING PHYSICIAN Internal Medicine; CONSULT PHYSICIAN Internal Medicine Infectious Disease; CONSULT PHYSICIAN Internal Medicine Nephrology; CONSULT PHYSICIAN Surgery Vascular Surgery; EMERGENCY PHYSICIAN Emergency Medicine; FAMILY PHYSICIAN Family Medicine
PROC: 0W9H30Z Drainage of Retroperitoneum with Drainage Device, Percutaneous Approach (ICD-10-PCS; 2024-11-03)
DX: K91.873 Postprocedural seroma of a digestive system organ or structure following other procedure (principal); D84.9 Immunodeficiency, unspecified; N17.9 Acute kidney failure, unspecified; Z94.4 Liver transplant status; N18.32 Chronic kidney disease, stage 3b; K70.30 Alcoholic cirrhosis of liver without ascites; B19.20 Unspecified viral hepatitis C without hepatic coma; I25.10 Atherosclerotic heart disease of native coronary artery without angina pectoris; Z95.5 Presence of coronary angioplasty implant and graft; I12.9 Hypertensive chronic kidney disease with stage 1 through stage 4 chronic kidney disease, or unspecified chronic kidney disease; F17.200 Nicotine dependence, unspecified, uncomplicated; J44.9 Chronic obstructive pulmonary disease, unspecified; E11.22 Type 2 diabetes mellitus with diabetic chronic kidney disease; E11.51 Type 2 diabetes mellitus with diabetic peripheral angiopathy without gangrene; M19.90 Unspecified osteoarthritis, unspecified site; E11.40 Type 2 diabetes mellitus with diabetic neuropathy, unspecified; M54.9 Dorsalgia, unspecified; R79.89 Other specified abnormal findings of blood chemistry; R59.1 Generalized enlarged lymph nodes; Y83.8 Other surgical procedures as the cause of abnormal reaction of the patient, or of later complication, without mention of misadventure at the time of the procedure; E78.5 Hyperlipidemia, unspecified; Y82.8 Other medical devices associated with adverse incidents; Z79.01 Long term (current) use of anticoagulants; Z79.02 Long term (current) use of antithrombotics/antiplatelets; Z79.899 Other long term (current) drug therapy; Z79.84 Long term (current) use of oral hypoglycemic drugs
CPT/HCPCS: 49406; 74176; 80048; 80053; 81003; 81099; 82570; 82962; 83690; 85025; 85027; 85610; 87015; 87070; 87102; 87205; 89051; 93971; 94640; 96365; 99152; 99153; 99285; 99406

== ENCOUNTER 2024-11-25 20:33 | Inpatient (IN) | payer MEDICARE, OTHER, SELFPAY ==
[2024-11-25] VITALS (11 sets, daily range): BP systolic 93–127; BP diastolic 55–79; BMI 24.8; BMI 23.7
[2024-11-25 14:52] LABS: Hematocrit 31.1 % (39.0-52.0); Hemoglobin 10.5 g/dL (13.0-18.0); Mean Corp Hgb Conc. 33.8 g/dL (33.0-37.0); Mean Corpuscular Volume 88.4 fL (80.0-94.0); Nucleated Red Blood Cells % 0 % (-); Platelet Count 279 10^3/uL (130-400); Red Cell Dist. Width 14.6 % (11.5-14.5)
[2024-11-25 15:15] LABS: ALT (SGPT) 17 U/L (0-50); AST (SGOT) 29 U/L (17-59); Albumin 3.5 g/dl (3.5-5.0); Alkaline Phosphatase 153 U/L (38-126); Blood Urea Nitrogen 44 mg/dl (9-20); Calcium 8.6 mg/dl (8.4-10.2); Carbon Dioxide 20 mmol/L (22-30); Chloride 105 mmol/L (98-107); Glucose 187 mg/dl (70-99); Lipase 64 U/L (23-300); Potassium 4.1 mmol/L (3.5-5.1); Sodium 136 mmol/L (135-145); Total Protein 7.1 g/dl (6.3-8.2); eGFR 30.47
--- NOTE | 2024-11-25 15:20 | ED.GENMED ---
History of Present Illness
General
Chief Complaint: Abnormal Lab Value
Time Seen by Provider: 11/25/24 15:11
History of Present Illness
History of Present Illness:
Patient presents to the emergency department with abdominal pain, vomiting, constipation. Last bowel movement was 5 days ago. He is passing gas. Has vomited/dry heaved over the past 2 days. He notes that this is only after he eats chocolate. He
complains of diffuse abdominal pain that has been present since recent admission in mid October. He was admitted at that time for retroperitoneal collection and had a ELLIOTT drain placed. It was felt to be a seroma at that time. He still has a
drain in place and is having minimal output for the past few days.
Past History
Past History
ED Past Medical History: CAD, HTN, [place] and Other (Liver transplant)
ED Past Surgical History: Other (liver transplant, AAA)
Social History
Tobacco: Smoker
Alcohol: Former
Drug: None
Personal:
Living: with family
Employment: Not employed
Family History
Family History: CAD and Other (Noncontributory)
Phy Exam
Physical Exam
Physical Exam:
GENERAL APPEARANCE: NAD, well developed/ well nourished
EYES lids/conjunctiva normal
EARS/NOSE/THROAT Mucous membranes moist, uvula midline without oral pharyngeal erythema, exudate or swelling
HEAD/NECK normocephalic atraumatic, neck is supple.
RESPIRATORY respiratory effort normal, speaks in full sentences, no accessory muscle use. Lungs clear to auscultation without rhonchi, wheezes, rales
CARDIAC Regular rate and rhythm, no edema.
ABDOMINAL Soft, diffuse tenderness
MUSCLES/EXTREMITIES No abnormal range of motion,. There is edema to the right lower extremity which patient states is chronic
SKIN Warm, pink and dry. No rashes
NEUROLOGICAL Speech is clear and appropriate. Normal level of consciousness.
Course
Orders/Labs/Results
Orders:
Orders
11/25/24 Breakfast
1800 calorie (15 carb) Diabetic
At Your Request: Limited Participation
11/25/24 14:23
Complete Blood Count/With Diff Urgent
Comprehensive Metabolic Panel Urgent
Direct Bilirubin Urgent
Comment: ADD ON
Lipase Urgent
11/25/24 15:22
0.9% Sodium Chloride 500 ml [Nss] 500 ml IV BOLUS
11/25/24 15:23
CT Abd/pel Without Iv Or Oral Urgent
Comment:
Reason For Exam: abd pain, vomiting, lucrecia
11/25/24 17:53
Piperacillin/Tazo 3.375 Gram [Zosyn] 3.375 gram in 50 ml IV ONCE
11/25/24 18:14
Blood Culture Q30M
KIMMY Source: Blood/Venous
Specimen Description:
Blood Culture Q30M
KIMMY Source: Blood/Venous
Specimen Description:
11/25/24 19:46
Urinalysis Reflex To Culture Urgent
Date Specimen was Collected: 11/25/24
Time Specimen was Collected: 14:14
Urine Microscopic Reflex Cult Urgent
11/25/24 20:13
Admit/Transfer Patient As Directed
Co-Sign Provider:
Level of Care: Inpatient admission
Assign to:: Telemetry
Physician / Group: ken
Diagnosis: septic thrombophlebitis
Reason for Telemetry: Other
Other Reason for Telemetry: arrythmia
Date to Stop Telemetry: 11/27/24
Time to Stop Telemetry: 11:00
Reason for Hospitalization: septic thrombophlebitis
Expected length of stay greater than two midnights?: Yes
ELOS- Estimated Length of Stay in days: 3
I certify the patient meets the requirements for IP care: Yes
PRN Pain Medication Management As Directed
May give lesser potent ordered pain med per pt: Yes
preference::
Protocol:: Medication orders for pain may be administered in a
manner that supports deferring to patient preference
when the pt is:
- Requesting an ordered lesser potent pain medication.
Least to most potent pain medications are defined
as: acetaminophen < NSAID < tramadol < opioids
(morphine, oxycodone, hydromorphone).
- Requesting a lesser dose of the same medication IF
ORDERED.
- Requesting a less intrusive route of administration
if both routes are prescribed by the provider (PO <
IV).
11/25/24 20:15
Code Status As Directed
Resuscitation Status: Do not resuscitate
Reached after discussion with pt or family/Healthcare POA: Yes
11/25/24 20:16
DNR Bracelet Application ONCE
11/25/24 21:25
Acetaminophen [Tylenol] 650 mg PO Q4HPRN PRN
Albuterol [ProAIR HFA INHALER] 2 puff INH R Q6HPRN PRN sob
Bisacodyl [Dulcolax] 10 mg RECTAL [id number] PRN
Dextrose 50%-Water [Dextrose 50% Syringe] 12.5 grams IV [id number] PRN
Docusate W/Senna [Senokot-S] 1 tablet PO BIDPRN PRN
Glucagon [GlucaGen] 1 mg IM PRN PRN
HYDROmorphone [Dilaudid] 0.5 mg IV Q4HPRN PRN
Polyethylene Glycol Powder [Miralax] 17 grams PO DAILYPRN PRN
11/25/24 21:25
EKG [Electrocardiogram (*1)] Routine
Reason for Study: Atrial Fibrillation
Activity As Directed
Activity Level: As Tolerated
Bedside Glucose Monitoring As Directed
Frequency: AC&HS
Additional Instructions:: Change to q6h if pt on TPN, tube feeding or not eating
Intake/ Output As Directed
Frequency: Per unit guidelines
Vital Signs As Directed
Frequency: Per unit guidelines
11/26/24 00:00
Piperacillin/Tazo 3.375 Gram [Zosyn] 3.375 gram in 50 ml IV Q6H
11/26/24 06:00
Basic Metabolic Panel IN AM
Complete Blood Count/No Diff IN AM
Glycohemoglobin (HgbA1c) IN AM
11/26/24 07:30
Insulin Aspart Corrective Low [Novolog Flexpen-Low Resistance] See Protocol SC AC
11/26/24 08:00
Amlodipine [Norvasc] 2.5 mg PO DAILY
Atorvastatin [Lipitor] 40 mg PO DAILY
Clopidogrel Bisulfate [Plavix] 75 mg PO DAILY
Fluticasone/Salmeterol 45/21 [Advair Hfa 45/21 Mcg Inhaler] 2 puff INH R BID
Lidocaine [Lidocaine 4% Patch] 1 patch TOPICAL DAILY
Apply Lidocaine patch(s) to:: lower back
Magnesium Oxide 400 mg PO BID
Metoprolol Xl [Toprol Xl] 50 mg PO DAILY
Multivitamin [Theragran] 1 tablet PO DAILY
Pantoprazole [Protonix] 40 mg PO BID
Pregabalin [Lyrica] 200 mg PO BID
Tiotropium [place] 2.5 Mcg [Spiriva Respimat 2.5 Mcg] 2 puff INH R DAILY
11/27/24 06:00
Basic Metabolic Panel IN AM
Complete Blood Count/No Diff IN AM
11/27/24 11:00
DC Protocol for Telemetry ONCE
11/28/24 06:00
Basic Metabolic Panel IN AM
Complete Blood Count/No Diff IN AM
11/29/24 06:00
Basic Metabolic Panel IN AM
Abnormal Lab Results
11/25/24 11/25/24
14:23 19:46
WBC 13.1 H 10^3/uL
(4.8-10.8)
RBC 3.52 L 10^6/uL
(4.70-6.10)
Hgb 10.5 L g/dL
(13.0-18.0)
Hct 31.1 L %
(39.0-52.0)
RDW 14.6 H %
(11.5-14.5)
MPV 12.3 H fL
(7.4-10.4)
Abs Immat Gran (auto) 0.2 H 10^3/uL
(0-0.05)
Absolute Neuts (auto) 10.6 H 10^3/uL
(1.4-6.5)
Absolute Lymphs (auto) 0.9 L 10^3/uL
(1.2-3.4)
Absolute Monos (auto) 1.4 H 10^3/uL
(0.1-0.6)
Immature Gran % 1.2 H %
(0-0.5)
Neutrophils % 81.0 H %
(42.2-75.2)
Lymphocytes % 6.9 L %
(20.5-51.1)
Monocytes % 10.5 H %
(1.7-9.3)
Carbon Dioxide 20 L mmol/L
(22-30)
BUN 44 H mg/dl
(9-20)
Creatinine 2.2 H mg/dL
(0.7-1.3)
Glucose 187 H mg/dl
(70-99)
Total Bilirubin 1.4 H mg/dl
(0.2-1.3)
Direct Bilirubin 0.6 H mg/dl
(0.0-0.4)
Alkaline Phosphatase 153 H U/L
(38-126)
Urine Bacteria (Reflex) Few A
(Negative)
Urine Glucose 4+ A
(Negative)
Urine Albumin (Reflex) 1+ A
(Neg - Trace)
11/25/24 14:23
11/25/24 14:23
Vital Signs
Initial and Last Documented VS:
Initial Vital Signs
Temp Pulse Resp BP Pulse Ox
98.0 F 102 20 93/55 97
11/25/24 14:09 11/25/24 14:09 11/25/24 14:09 11/25/24 14:09 11/25/24 14:09
Last Documented Vital Signs
Temp Pulse Resp BP Pulse Ox
101 F H 102 18 113/55 98
11/25/24 21:36 11/25/24 21:36 11/25/24 21:36 11/25/24 21:36 11/25/24 21:36
*Pulse Oximetry
SaO2: 95
Patient hypoxic: no
*Critical Care Note
Total Time (30-74mins, 75-104mins- exclusive of procedures): Not Applicable
ED Attending Note
ED Attending Note
ED Attending Note:
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
recent left retroperitoneal collection s/p drainage in October 2024
presents to ER with abdominal pain, vomiting
he is hemodynamically stable
WBC 13, Cr 2.2 from [address] abd/pelv highly suspicious for distal aorta infected thrombus (septic thrombophlebitis). The collection that was drained is smaller in size (ELLIOTT drain still in place with minimal output)
Ordered a dose of zosyn, IVFs
discussed with vascular surgery Dr. Hendricks
she suspects its residual hematoma. She recommends medicine admit, blood cultures, hydration, CTA tomorrow to make sure theres no flow in the
-
Portions of this chart may have been created with voice recognition software.� Occasional wrong word or��sound alike� substitutions may have occurred due to the inherent limitations of voice recognition software.
Discharge Plan
Departure
Patient Disposition: Admit
Date of Disposition: 11/25/24
Time of Disposition: 19:01
Presentation/result/management discussed w/ accepting MD/DO: Hospitalist
Discharge Problem:
Septic thrombophlebitis
Interventions
Interventions:
*Risk Screen - Suicide Last Done: 11/25/24 14:09
*General Assessment Last Done: 11/25/24 15:40
*Neglect/Abuse Screening Last Done: 11/25/24 14:09
*ED- Fall Risk Assessment Last Done: 11/25/24 15:26
*ED COVID-19 Vaccine History Last Done: 11/25/24 15:26
*ED Influenza Vaccine History Last Done: 11/25/24 15:26
*Nursing Disposition Last Done: 11/25/24 21:09
Discharge Date and Time
Discharge Date/Time: 11/25/24 21:09
[2024-11-25] MEDS: NSS 500 IV (15:31)
[2024-11-25] MEDS: ZOSYN 50 IV ×2 (18:20→23:51)
--- NOTE | 2024-11-25 19:41 | HPS.HSE ---
Family Physician
-
Family Physician: Odilia Velázquez
Chief Complaint
-
mid abdominal pain assoicated with n/v
History of Present Illness
74-year-old with past medical history for coronary disease, hypertension, [place], AAA, recent explant of infected aortic stent graft along with ax bi fem bypass with chronic back pain and CT scan demonstrating RP collection status post IR drain
placement suspect seroma presented to us with mid abdominal pain associated with n/v, dry heaving for past two days. patient stated no bowel movement for two days. he was taking Tylenol and asa with no relief in his symptoms. denied QURESHI< dizzy or
syncope.denied fever, chills, cough,congestion, chest pain, sob. denied dysuria or hematuria.
CT concerning for Findings highly suspicious for distal aorta infected thrombus (septic thrombophlebitis).
Patient received a dose of Zosyn, normal saline in the ER
-Blood cultures and UA ordered in ER. Admitting for further manage
Medical History
Past Medical History
Past Medical History: Reports Other
Additional Past Medical History:
Venous insufficiency, AAA, osteoarthritis, popliteal artery aneurysm, history of alcohol and HCV cirrhosis, bilateral stents, coronary artery disease, hypertension, COPD, type 2 diabetes
Past Surgical History: Reports Other
Additional Past Surgical History:
Liver transplant, CAD stent, AAA repair, back surgery
Social History
Tobacco: Other (POTS)
Alcohol: None
Drug: None
Family History
Family History: Not pertinent
Allergies / Home Medications
Allergies reflects when Allergies were last updated in [facility].
Home Medications with original date entered in [facility]
Allergy/Medication List:
Allergies
Allergy/AdvReac Type Severity Reaction Status Date / Time
No Known Allergies Allergy Verified 11/25/24 14:09
Home Medications
apixaban 5 mg tablet (Eliquis) 5 mg PO BID #60 tabs 11/30/18
clopidogrel 75 mg tablet 75 mg PO DAILY #30 tabs 11/30/18
albuterol sulfate 90 mcg/actuation aerosol inhaler 2 puff inhalation R Q6HPRN PRN sob 04/25/24
amlodipine 2.5 mg tablet 2.5 mg PO DAILY Blood Pressure 04/25/24
atorvastatin 80 mg tablet 40 mg PO DAILY High Cholesterol 04/25/24
metformin 500 mg tablet 500 mg PO DAILY Diabetes 04/25/24
metoprolol succinate 100 mg tablet,extended release 24 hr 50 mg PO DAILY Heart Disease/Condition 04/25/24
pregabalin 200 mg capsule 200 mg PO BID mild Pain 04/25/24
tacrolimus 0.5 mg capsule, immediate-release 2 mg PO BID Transplant 04/25/24
therapeutic multivitamin 1 tab PO DAILY Supplement 04/25/24
pantoprazole 40 mg tablet,delayed release (Protonix) 40 mg PO BID Gastrointestinal Issue 05/02/24
tiotropium bromide 2.5 mcg/actuation mist for inhalation 2 puff inhalation DAILY Lung/Breathing Issues 05/02/24
empagliflozin 25 mg tablet 25 mg PO DAILY Diabetes 10/19/24
fluticasone 100 mcg-salmeterol 50 mcg/dose blistr powdr for inhalation (Advair Diskus) 1 inh inhalation R BID Lung/Breathing Issues 10/19/24
magnesium oxide 400 mg PO BID Supplement 10/19/24
lidocaine 4 % topical patch 1 patch topical DAILY #10 ea 10/23/24
polyethylene glycol 3350 17 gram oral powder packet 17 g PO DAILYPRN PRN constipation 11/01/24
acetaminophen 325 mg tablet 650 mg (2 x 325 mg) PO Q4HPRN PRN mild pain/QURESHI/temp> 100.4F #1 tab 11/05/24
ciprofloxacin HCl 500 mg tablet 500 mg PO DAILY #30 tabs 11/05/24
furosemide 40 mg tablet (Lasix) 40 mg PO DAILY #30 tabs 11/05/24
Review of Systems
-
Constitutional: Reports No Symptoms
EENT: Reports No Symptoms
Respiratory: Reports No Symptoms
Cardiac: Reports No Symptoms
Abdomen/GI: Reports Abdominal Pain, Nausea, Vomiting and Constipated
: Reports No Symptoms
Musculoskeletal: Reports No Symptoms
Skin: Reports No Symptoms
Neurological: Reports No Symptoms
Endocrine: Reports No Symptoms
Hematologic/Lymphatic: Reports No Symptoms
Psych: Reports No Symptoms
Physical Exam
Vital Signs
Vital Signs
Temp Pulse Resp BP Pulse Ox
99.4 F 95 27 108/79 93
11/25/24 18:16 11/25/24 19:15 11/25/24 19:15 11/25/24 19:00 11/25/24 19:15
Physical Exam
General: Well Developed, Well Nourished and No Apparent Distress
HEENT: NormoCephalic, Moist mucous membranes and Atraumatic
Respiratory: Clear
Cardiac: S1/S2 and Regular Rhythm; No Murmur or Rub
GI: Soft, Non Tender, Non Distended, Normal Bowel Sounds and Other (IR drainage. ); No Organomegaly
Rectal: Deferred by Provider
Musculoskeletal: No Clubbing, No Cyanosis and No Edema
Skin: No Rash
Neuro: Nonfocal/grossly intact
Psych: Calm
Laboratory Results
-
11/25/24 14:23
11/25/24 14:23
Laboratory Results
Total Bilirubin 1.4 mg/dl (0.2-1.3) H 11/25/24 14:23
AST 29 U/L (17-59) 11/25/24 14:23
ALT 17 U/L (0-50) 11/25/24 14:23
Alkaline Phosphatase 153 U/L (38-126) H 11/25/24 14:23
Lipase 64 U/L (23-300) 11/25/24 14:23
Data Reviewed
-
CT Scan: Report Reviewed by me
Lab Data: Labs Reviewed by me
Impression/Plan
-
# Abdominal pain associate with vomiting concern for septic thrombophlebitis
# History of left retroperitoneal collection
##Persistent stranding and mild lymphadenopathy within the left retroperitoneum
-s/p explant of infected aortic stent graft along with ax bi fem bypass presented to [facility] s/p fall;
- S/p IR drainage of collection 11/[address] with very minimum drainage.
- WBCs 13
- CT abdomen pelvis with impression of findings highly suspicious for distal aorta infected thrombus (septic thrombophlebitis).Left posterior and lateral pararenal space collection is smaller in size.
Mild soft tissue stranding in the right upper quadrant adjacent to the pancreatic head and common bile duct, likely inflammatory soft tissue stranding extending superiorly from the retroperitoneal periaortic inflammatory changes. The possibility of
pancreatitis and/or ascending cholangitis is felt to be less likely, though not entirely excluded. Other stable chronic findings, as described.The cortical margins of the vertebral bodies and endplates are maintained without bony destruction or
evidence to suggest discitis/osteomyelitis.
- IV Zosyn continued
- Blood cultures ordered in ER
-vascular recommended CTA in am, but elevated cr, repeat BMP prior to CTA.
-Plavix continued
- Vascular surgery consulted
-ID consulted
# Acute kidney injury on CKD stage IIIb likely dehydration
- Creatinine 2.2
-received normal saline in ER
-BMP in am
-normal saline continued
#Anemia of chronic disease
- Hemoglobin stable at 10.5, no active bleeding
- Continue to monitor
#COPD
-Stable
-continue inhalers
#Paroxysmal atrial fibrillation
-obtain EKG
-eliquis held, and initiated on heparin drip in case any procedures.
-metoprolol continued
#Diabetes
-hold metformin
-sliding scale and empagliflozin
#LE edema
-hold Lasix
#Hypertension
#HLD
-cont Norvasc, statin
#hxt of liver transplant
-on tacrolimus
#GERD
-PPI continued
CODE STATUS DNR
DVT prophylaxis Eliquis
[2024-11-25 20:15] LABS: Urine Character Clear (Clear)
[2024-11-25 20:22] LABS: Urine Squamous Cell 0-2 /LPF (Few)
[2024-11-25 20:23] LABS: Urine Red Blood Cell 0-2 /HPF (0-2); Urine White Cell 0-2 /HPF (0-5)
--- NOTE | 2024-11-25 20:46 | W.PN.UPDATE ---
Addendum entered and electronically signed by Moriah Guallpa MD 11/25/24 22:47:
CT report reads possible pancreatitis, but lipase WNL. Patient's pain in mid epigastric area not suggestive of cholangitis and liver enzymes near normal, will repeat tomorrow. Tenderness on exam more epigastric. Question how much constipation
contributing to pain as well. bowel regimen ordered.
Original Note:
Update Note
Progress Note Update
This is an addendum to H&P written by TRACK LINER OPERATOR Anamaria Ugalde
I saw and examined the patient.
The TRACK LINER OPERATOR's note was reviewed and I agree with the note.
Comment:
Mr. 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
admission 11/01-11/05/24 for recurrent left retroperitoneal fluid collection s/p ELLIOTT drain thought to be seroma presents to the ER with abdominal pain, vomiting and constipation.
Triage vitals with pulse 102, BP 93/55 up to 120/61. Labs with WBC 13.1, Hg 10.5, PLT 279, Na 136, K+ 4.1, CO2 20, BUN 44, Cr 2.2 (baseline 1.5-1.8). On exam patient is AAO x 3, CV: S1, S2,RRR; no JVP, lungs clear, no LE swelling. Abdomen tender
in mid-epigastric region, no rebound/guarding. Abdomen/Pelvis CT without IV or oral with concern for septic thrombophlebitis (see report below). This was discussed with Dr. Hendricks, suspects residual hematoma and recommends CTA tomorrow to confirm no
flow there.
CT A/P without contrast
IMPRESSION:
Findings highly suspicious for distal aorta infected thrombus (septic thrombophlebitis).
Left posterior and lateral pararenal space collection is smaller in size.
Mild soft tissue stranding in the right upper quadrant adjacent to the pancreatic head and common bile duct, likely inflammatory soft tissue stranding extending superiorly from the retroperitoneal periaortic inflammatory changes. The possibility of
pancreatitis and/or ascending cholangitis is felt to be less likely, though not entirely excluded.
Other stable chronic findings, as described.
The cortical margins of the vertebral bodies and endplates are maintained without bony destruction or evidence to suggest discitis/osteomyelitis.
Abdominal Pain
s/p explant of infected aortic stent graft along with ax bi fem bypass April 2024 on daily Cipro suppression
Recent admission for left retroperitoneal collection thought likely due to seroma s/p ELLIOTT drain placement
Abnormal CT concerning for septic thrombophlebitis
-admit to telemetry
-CT angio tomorrow recommended by Dr. Hendricks (*will hold off on order to confirm renal function better prior to ordering study)
-ID consult
-formal vascular surgery consult
-blood cultures
-IV Zosyn
-hold Eliquis and bridge with IV heparin per Vascular surgery recommendations
CHARISSE
Hx Renal Transplant on Tacrolimus
CKD III
-likely dehydrated in setting of vomiting
-s/p 1L bolus
-NS @ 80
-continue SAND MOLDER Tacrolimus BID
-hold SAND MOLDER Lasix
-*hold off on ordering contrast study until confirm renal function better post fluids tomorrow
Constipation
-bowel regimen ordered
DM
-hold SAND MOLDER Metformin
Paroxysmal Afib
-continue SAND MOLDER Eliquis
COPD
-stable
-SAND MOLDER inhalers
Remainder of plan per TRACK LINER OPERATOR note
76 minutes spent on patient care
[2024-11-25] MEDS: NSS 1000 IV (21:48)
[2024-11-25] MEDS: TYLENOL 650 MG PO (21:58)
--- NOTE | 2024-11-25 22:00 | PTCARENOTE ---
Pt received from ED via stretcher at 2114. Pt pleasant, AAOx3, VSS, and able to ambulate into room with walker and assistance. Pt complains of mod mid abdominal pain at this time - see APR. Pt receptive to room and call costa. Pt bed in lowest
position and call costa within reach. Pt educated on importance of call costa usage, pt relays somewhat understanding and cooperation. Bed alarm placed and plugged in. Will continue with current plan of care.
[2024-11-25 22:33] LABS: Hematocrit 29.1 % (39.0-52.0); Hemoglobin 9.9 g/dL (13.0-18.0); Mean Corp Hgb Conc. 34.0 g/dL (33.0-37.0); Mean Corpuscular Volume 85.6 fL (80.0-94.0); Platelet Count 247 10^3/uL (130-400); Red Cell Dist. Width 14.6 % (11.5-14.5)
[2024-11-25 22:44] LABS: APTT 41.2 Sec (23.4-35.0)
[2024-11-25] MEDS: HEPARIN 25000 UNITS/250 ML IV (22:44)
[2024-11-25] MEDS: REMOVE LIDOCAINE PATCH 1 PATCH REMOVE (22:57)
[2024-11-25] MEDS: DILAUDID 0.5 MG IV (23:00)
[2024-11-25] MEDS: PROGRAF 2 MG PO (23:00)
[2024-11-26] MEDS: MIRALAX 17 GRAMS PO ×2 (02:54→09:57)
[2024-11-26 03:26] VITALS: BP 125/69
[2024-11-26] MEDS: DILAUDID 0.5 MG IV ×5 (04:47→23:55)
[2024-11-26] MEDS: ZOSYN 50 IV ×4 (05:12→23:40)
[2024-11-26 05:15] LABS: Hematocrit 29.9 % (39.0-52.0); Hemoglobin 9.8 g/dL (13.0-18.0); Mean Corp Hgb Conc. 32.8 g/dL (33.0-37.0); Mean Corpuscular Volume 89.0 fL (80.0-94.0); Platelet Count 250 10^3/uL (130-400); Red Cell Dist. Width 14.6 % (11.5-14.5)
[2024-11-26 05:42] LABS: APTT 64.4 Sec (23.4-35.0)
[2024-11-26 05:50] LABS: ALT (SGPT) 17 U/L (0-50); AST (SGOT) 28 U/L (17-59); Albumin 3.2 g/dl (3.5-5.0); Alkaline Phosphatase 138 U/L (38-126); Blood Urea Nitrogen 42 mg/dl (9-20); Calcium 8.5 mg/dl (8.4-10.2); Carbon Dioxide 22 mmol/L (22-30); Chloride 110 mmol/L (98-107); Estimated Creatinine Clearance 35 ml/min; Glucose 149 mg/dl (70-99); Potassium 4.0 mmol/L (3.5-5.1); Sodium 140 mmol/L (135-145); Total Protein 6.7 g/dl (6.3-8.2); eGFR 34.16
[2024-11-26 07:15] VITALS: BP 160/72
[2024-11-26] MEDS: SPIRIVA RESPIMAT 2.5 MCG 2 PUFF INH (07:52)
[2024-11-26] MEDS: ADVAIR HFA 45/21 MCG INHALER 2 PUFF INH (07:52)
[2024-11-26 08:25] LABS: Glucose - Point of Care 134 mg/dl (70-99)
[2024-11-26] MEDS: NOVOLOG FLEXPEN-LOW RESISTANCE SC ×2 (08:38→16:52)
--- NOTE | 2024-11-26 08:38 | CON.ID ---
Consultation
-
Date/Time Consultation Requested: 11/26/2024 0652
Date/Time Consultation Performed: 11/26/2024 0840
Requesting Provider: Dr. Moriah Guallpa
Performing Provider: Dr. Olivia Hartley
Reason for Consultation: Fever, hx aortic endograft infection
Chief Complaint / Past History
Chief Complaint
Abdominal pain
History of Present Illness
73-year-old male known to me with history of liver transplant on tacrolimus, CAD, A-fib on Eliquis, history of abdominal aortic aneurysm repair with aorto by iliac stent graft infected with Pseudomonas s/p explant, R axillary-bifem bypass (04/2024)
on cipro chronic suppression (as per Vascular request) presented to ED on 11/25/2024 due to acute upper abd pain.
Of note, patient was recently hospitalized from October 19�[facility] 4 for right mid back pain and intermittent abdominal pain after a fall. CAT scan showed left retroperitoneal collection. He underwent IR guided aspiration of 250 cc thin fluid,
culture negative. He was then discharged to home to continue chronic suppression with Cipro. He was readmitted 11/01 - 11/05 for flare of chronic back pain as well as for CHARISSE. Repeat CAT scan of the abdomen and pelvis, again showing left
retroperitoneal collection 12 x 9 x 4 cm. 11/03 He underwent IR drain placement, 40 cc thin yellow fluid output, cx negative. Fluid creatinine to serum creatinine ration was not consistent with urinoma. He was discharged to continue cipro chronic
suppression.
Past 2 days, he c/o abd pain with Nausea an dry heaves. No diarrhea. c/o no BM x2 days. Denies fever of chills. The ELLIOTT drain is not draining much. No ill-contacts. IN ED T=101. WBC 13.1. CT a/p: suspicious for distal aorta infected thrombus;
left retroperitoneal fluid smaller in size with perc drain in place; mild sof tissue stranding in RUQ next to pancreatic head. Lipase normal. He is currently on Zosyn. Abd pain better today.
Past History
Additional Past Medical History:
AAA [id number] stent graft infection with Pseudomonas s/p Right axillary bifemoral artery bypass with new ringed Calvin graft ; explant of entirety of infected aortic endograft, wide debridement of retroperitoneum (05/01/24) s/p 6 weeks of
ceftazidime followed by cipro 500mg daily suppression (as requested by Dr. [facility]).
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
Paroxysmal atrial fibrillation
CAD
Hypertension
Neuropathy
COPD
Cholecystectomy
Back surgery
Left ischial tuberosity fracture from fall
History of multiple bile duct stents
Allergy History:
No Known Allergies Allergy (Verified 11/25/24 14:09)
Medications Reviewed: Yes
Current Antibiotics:
Zosyn
Social History
Tobacco: Former Smoker
Alcohol: Occasional
Drug: None
Living: With Family
Family History
Family History: Not Pertinent
Review of Systems
Review of Systems
General: Change in Appetite
Cardiovascular: Negative Chest Pain
Respiratory: Negative Dyspnea or Cough
Gasteroenterology: Nausea and Vomiting; Negative Diarrhea
Genital / Urological: Negative Dysuria or Flank Pain
Endocrine: Weakness
Skin / Hair / Nails: Negative Rash
All systems: All other systems were reviewed and were negative
Vital Signs
Temp Pulse Resp BP Pulse Ox
98.5 F 94 20 125/69 94
11/26/24 03:26 11/26/24 07:55 11/26/24 07:55 11/26/24 03:26 11/26/24 07:55
Physical Exam
Physical Exam
Constitutional: No Acute Distress
Eyes: No Conjunctival Hemorrhage and Sclera Anicteric
Cardiovascular: Regular Rate and S1/S2
Pulmonary: Clear
Gastrointestinal: Soft, Non Tender, Non Distended and Normal Bowel Sounds
Genito-Urinary: Negative CVA Tenderness
Extremities: Negative Edema
Neurological: Awake and Alert
Lab / Diagnostic Study Results
11/26/24 05:04
11/26/24 05:04
Abs Immat Gran (auto) 0.2 10^3/uL (0-0.05) H 11/25/24 14:23
Absolute Neuts (auto) 10.6 10^3/uL (1.4-6.5) H 11/25/24 14:23
Absolute Lymphs (auto) 0.9 10^3/uL (1.2-3.4) L 11/25/24 14:23
Absolute Monos (auto) 1.4 10^3/uL (0.1-0.6) H 11/25/24 14:23
Absolute Basos (auto) 0.0 10^3/uL (0-0.2) 11/25/24 14:23
Immature Gran % 1.2 % (0-0.5) H 11/25/24 14:23
Neutrophils % 81.0 % (42.2-75.2) H 11/25/24 14:23
Lymphocytes % 6.9 % (20.5-51.1) L 11/25/24 14:23
Monocytes % 10.5 % (1.7-9.3) H 11/25/24 14:23
Eosinophils % 0.1 % (0-6) 11/25/24 14:23
Basophils % 0.3 % (0-2) 11/25/24 14:23
Ur Squamous Epith Cells 0-2 /LPF (Few) 11/25/24 19:46
Microbiology Results
Micro:
11/26/24 03:30 MRSA Screen - Pending
Nose
11/25/24 18:14 Blood Culture - Pending
Blood/Venous
11/25/24 18:14 Blood Culture - Pending
Blood/Venous
11/25/2024 CT a/p wo contrast: Progressive enlargement of the presumed oversewn distal aorta (as stated previously associated with prior abdominal aortic graft explantation) currently measuring up to 7.2 cm transverse by 5.2 cm AP, with previous
corresponding measurements of 5.9 x 4.3 cm., There is increased attenuation of the distal oversewn aorta, the margins are indistinct secondary to progressive increased retroperitoneal periaortic soft tissue stranding and haziness. There is also more
prominent/progressive retroperitoneal adenopathy, with index lymph node measuring 3 cm representing an anterior interaortocaval lymph node (image 30 series 301). Other adjacent and surrounding lymph nodes have also increased in size and number.
Given the prior history of abdominal aortic graft explantation and surgical oversewing of the aorta, appearance is highly suspicious for infected thrombus (septic thrombophlebitis). Left posterior and lateral pararenal space collection is
smaller in size. Mild soft tissue stranding in the right upper quadrant adjacent to the pancreatic head and common bile duct, likely inflammatory soft tissue stranding extending superiorly from the retroperitoneal periaortic inflammatory changes.
The possibility of pancreatitis and/or ascending cholangitis is felt to be less likely, though not entirely excluded.
Assessment / Plan
# Fever
# Leukocytosis
# Probable Septic thrombophlebitis of distal aorta on CT
# Presumed post-op seroma with left retroperitoneal fluid collection with drain placed. cx's x 2 neg.
Recent hx AAA stent graft infection with Pseudomonas s/p explant s/p Right axillary - bifem bypass (05/01/2024) on chronic suppression with cipro 500mg daily.
# Liver transplant on tacrolimus.
# CHARISSE
- Await blood cx's
- For CTA per Vascular
-Can continue empiric Zosyn pending workup.
-Trend temps/wbc
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
AAA [id number]-[id number] stent graft infection with Pseudomonas s/p Right axillary bifemoral artery bypass with new ringed Calvin graft ; explant of entirety of infected aortic endograft, wide debridement of retroperitoneum (05/01/24) s/p 6 weeks of
ceftazidime followed by cipro 500mg daily suppression (as requested by Dr. [facility]).
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
Paroxysmal atrial fibrillation
CAD
Hypertension
Neuropathy
COPD
Cholecystectomy
Back surgery
Left ischial tuberosity fracture from fall
History of multiple bile duct stents
--- NOTE | 2024-11-26 08:44 | W.PN.UPDATE ---
Update Note
Progress Note Update
Seen and examined. 74-year-old male known to me status post explant of infected endograft with concomitant axillary bifemoral bypass inclean planes in April of this year (April 2024). He had a prior history of orthotopic liver transplant (hep
C/alcohol cirrhosis). On immunosuppression. At that time his blood cultures had grown out Pseudomonas. Tissue cultures from the aorta stent graft had grown out Pseudomonas. Underwent debridement of the retroperitoneum. He has had a chronic
likely postoperative collection or chronic hematoma in the bed of the debridement. However his aortic tissue and infection had been debrided. Now presents again with continuous back pain. He has had this back pain chronically. He notes in the
center of his lower back only in the center not around the flanks. He has had known chronic lumbar degenerative disease. Prior CT scan imaging had demonstrated extensive multi lumbar disc degenerative degenerative disease. Now patient presents
with more recent onset of abdominal discomfort that is intermittent. But he also has associated nausea/vomiting. Fevers as well possibly.
On exam/currently afebrile but 101 Tmax overnight. He is awake and alert. No acute distress. Breathing is unlabored. Abdomen is soft, diffusely tender but mostly in midline/epigastrium. No peritoneal signs. I cannot palpate an obvious
pulsatile mass but his abdominal habitus is rather large. Groins are flat bilaterally. Right chest wall is flat. Axillary bifemoral graft is palpable, no fluctuance around that or redness in those vicinity's. Feet are both warm.
Labs reviewed. White blood cell count elevated to 13,000 on admission, 12.4 today.
Creatinine was elevated on admission to 2.2, down to 2.0 today. (Known somewhat chronic baseline renal insufficiency). LFTs are within normal limits. Total bilirubin is elevated. On admission was 1.4, today is 1.7. Alk phos elevated at 138.
Plan/ Possible concern for sepsis. Sources could be biliary tract again (prior instrumentation of the biliary tract, history of orthotopic liver transplant). Could be aortic/retroperitoneal bed chronic collection related. There is no residual
prosthetic in terms of the aorta. His aortic stump is oversewn in the immediate infrarenal segment. No signs of axillary bifemoral bypass graft infections. He has a drain in place from the retroperitoneal collection from prior but it is not in
the deep aortic bed retroperitoneal collection but rather just deep to the musculature prior to collection. That is draining serous mostly straw-colored fluid with a possible greenish tinge but no gulshan purulence. I reviewed on the CT scan and
that collection has significantly improved. On the CT scan his aortic bed appears similar in terms of morphology, but the size of the collection there may be the slightest bit larger. No evidence to suggest a gulshan rupture of the aortic stump.
Would recommend we get a CT angiogram to rule out any pseudoaneurysm there that would indicate significant infection. If no pseudoaneurysm and this is felt to be the infectious source, we could consider asking interventional radiology to see if
they could place drains into that bed to more widely drain it. Surgical decompression/drainage would be very high risk. In addition risk of aortic stump blowout. May not be any great option here. Unfortunately this poses a significant risk.
Would continue GI workup as well to rule out biliary tree as a potential alternative infection source as well. Consider GI consultation.
[2024-11-26 08:52] LABS: Glycohemoglobin (HgbA1c) 6.2 % (4.0-5.6)
--- NOTE | 2024-11-26 09:24 | CON.VAS ---
Consultation
Consultation Request
Date/Time Consultation Performed: 11/26/24 @ 7:30
Performing Provider: [place]
Reason for Consultation: Abdominal pain
Medical History
-
Chief Complaint: back and abdominal pain
History of Present Illness:
74-year-old male known to me status post explant of infected endograft with concomitant axillary bifemoral bypass in clean planes in April of this year (April 2024). He had a prior history of orthotopic liver transplant (hep C/alcohol cirrhosis).
On immunosuppression. At that time his blood cultures had grown out Pseudomonas. Tissue cultures from the aorta stent graft had grown out Pseudomonas. Underwent debridement of the retroperitoneum. He has had a chronic likely postoperative
collection or chronic hematoma in the bed of the debridement. However his aortic tissue and infection had been debrided. Now presents again with continuous back pain. He has had this back pain chronically. He notes in the center of his lower
back only in the center not around the flanks. He has had known chronic lumbar degenerative disease. Prior CT scan imaging had demonstrated extensive multi lumbar disc degenerative degenerative disease. Now patient presents with more recent onset
of abdominal discomfort that is intermittent. But he also has associated nausea/vomiting. Fevers as well possibly.
On exam/currently afebrile but 101 Tmax overnight. He is awake and alert. No acute distress. Breathing is unlabored. Abdomen is soft, diffusely tender but mostly in midline/epigastrium. No peritoneal signs. I cannot palpate an obvious
pulsatile mass but his abdominal habitus is rather large. Groins are flat bilaterally. Right chest wall is flat. Axillary bifemoral graft is palpable, no fluctuance around that or redness in those vicinity's. Feet are both warm.
Labs reviewed. White blood cell count elevated to 13,000 on admission, 12.4 today.
Creatinine was elevated on admission to 2.2, down to 2.0 today. (Known somewhat chronic baseline renal insufficiency). LFTs are within normal limits. Total bilirubin is elevated. On admission was 1.4, today is 1.7. Alk phos elevated at 138.
Past Medical History
Past Medical History: Other (AAA, osteoarthritis, popliteal artery aneurysm, history of alcohol and HCV cirrhosis, bilateral stents, coronary artery disease, hypertension, COPD, type 2 diabetes)
Past Surgical History: Other (Liver transplant, CAD stent, AAA repair, back surgery)
Social History
Tobacco: Other
Alcohol: Former
Family History
Family History: Reviewed & Not Pertinent
Allergies / Home Medications
Allergy/AdvReac Type Severity Reaction Status Date / Time
No Known Allergies Allergy Verified 11/25/24 14:09
�Medication �Instructions �Recorded �Confirmed �Type
apixaban 5 mg tablet (Eliquis) 5 mg PO BID #60 tabs 11/30/18 11/25/24 Rx
clopidogrel 75 mg tablet 75 mg PO DAILY #30 tabs 11/30/18 11/25/24 Rx
albuterol sulfate 90 mcg/actuation 2 puff inhalation R Q6HPRN PRN sob 04/25/24 11/25/24 History
aerosol inhaler
amlodipine 2.5 mg tablet 2.5 mg PO DAILY Blood Pressure 04/25/24 11/25/24 History
atorvastatin 80 mg tablet 40 mg PO DAILY High Cholesterol 04/25/24 11/25/24 History
metformin 500 mg tablet 500 mg PO DAILY Diabetes 04/25/24 11/25/24 History
metoprolol succinate 100 mg 50 mg PO DAILY Heart 04/25/24 11/25/24 History
tablet,extended release 24 hr Disease/Condition
pregabalin 200 mg capsule 200 mg PO BID mild Pain 04/25/24 11/25/24 History
tacrolimus 0.5 mg capsule, 2 mg PO BID Transplant 04/25/24 11/25/24 History
immediate-release
therapeutic multivitamin 1 tab PO DAILY Supplement 04/25/24 11/01/24 History
pantoprazole 40 mg tablet,delayed 40 mg PO BID Gastrointestinal Issue 05/02/24 11/25/24 History
release (Protonix)
tiotropium bromide 2.5 2 puff inhalation DAILY 05/02/24 11/25/24 History
mcg/actuation mist for inhalation Lung/Breathing Issues
empagliflozin 25 mg tablet 25 mg PO DAILY Diabetes 10/19/24 11/25/24 History
fluticasone 100 mcg-salmeterol 50 1 inh inhalation R BID 10/19/24 11/25/24 History
mcg/dose blistr powdr for Lung/Breathing Issues
inhalation (Advair Diskus)
magnesium oxide 400 mg PO BID Supplement 10/19/24 11/25/24 History
lidocaine 4 % topical patch 1 patch topical DAILY #10 ea 10/23/24 11/25/24 Rx
polyethylene glycol 3350 17 gram 17 g PO DAILYPRN PRN constipation 11/01/24 11/25/24 History
oral powder packet
acetaminophen 325 mg tablet 650 mg (2 x 325 mg) PO Q4HPRN PRN 11/05/24 11/25/24 Rx
mild pain/QURESHI/temp> 100.4F #1 tab
ciprofloxacin HCl 500 mg tablet 500 mg PO DAILY #30 tabs 11/05/24 11/25/24 Rx
furosemide 40 mg tablet (Lasix) 40 mg PO DAILY #30 tabs 11/05/24 11/25/24 Rx
Review of Systems
-
History Source: Patient
All other systems: Negative unless noted
Constitutional: Reports No Symptoms
EENT: Reports No Symptoms
Respiratory: Reports No Symptoms
Cardiac: Reports No Symptoms
Vascular: Denies Leg Pain / Claudication
Abdomen/GI: Reports Abdominal Pain, Nausea and Pain
Musculoskeletal: Reports No Symptoms
Skin: Reports No Symptoms
Physical Exam
Vital Signs
Temp Pulse Resp BP Pulse Ox
97.7 F 94 20 160/72 94
11/26/24 07:15 11/26/24 07:55 11/26/24 07:55 11/26/24 07:15 11/26/24 07:55
Lab Results
11/26/24 05:04
11/26/24 05:04
Physical Exam
General: No Apparent Distress
HEENT: Normocephalic and Atraumatic
Respiratory: Non Labored Respirations
Cardiac: Negative JVD
GI: Soft and Tender (Abdomen is soft, diffusely tender but mostly in midline/epigastrium. No peritoneal signs. I cannot palpate an obvious pulsatile mass but his abdominal habitus is rather large)
Musculoskeletal: No Clubbing and No Cyanosis
Skin: Warm and Dry
Neuro: Awake, Alert and Oriented
Psych: Calm
Assessment / Plan
-
Plan/ Possible concern for sepsis. Sources could be biliary tract again (prior instrumentation of the biliary tract, history of orthotopic liver transplant). Could be aortic/retroperitoneal bed chronic collection related. There is no residual
prosthetic in terms of the aorta. His aortic stump is oversewn in the immediate infrarenal segment. No signs of axillary bifemoral bypass graft infections. He has a drain in place from the retroperitoneal collection from prior but it is not in
the deep aortic bed retroperitoneal collection but rather just deep to the musculature prior to collection. That is draining serous mostly straw-colored fluid with a possible greenish tinge but no gulshan purulence. I reviewed on the CT scan and
that collection has significantly improved. On the CT scan his aortic bed appears similar in terms of morphology, but the size of the collection there may be the slightest bit larger. No evidence to suggest a gulshan rupture of the aortic stump.
Would recommend we get a CT angiogram to rule out any pseudoaneurysm there that would indicate significant infection. If no pseudoaneurysm and this is felt to be the infectious source, we could consider asking interventional radiology to see if
they could place drains into that bed to more widely drain it. Surgical decompression/drainage would be very high risk. In addition risk of aortic stump blowout. May not be any great option here. Unfortunately this poses a significant risk.
Would continue GI workup as well to rule out biliary tree as a potential alternative infection source as well. Consider GI consultation.
Data Reviewed
-
Labs: Labs Reviewed by me
[2024-11-26] MEDS: PLAVIX 75 MG PO (09:57)
[2024-11-26] MEDS: MAGNESIUM OXIDE 400 MG PO ×2 (09:57→20:11)
[2024-11-26] MEDS: LIPITOR 40 MG PO (09:57)
[2024-11-26] MEDS: PROGRAF 2 MG PO ×2 (09:57→20:11)
[2024-11-26] MEDS: NORVASC 2.5 MG PO (09:57)
[2024-11-26] MEDS: PROTONIX 40 MG PO ×2 (09:57→20:11)
[2024-11-26] MEDS: TOPROL XL 50 MG PO (09:57)
[2024-11-26] MEDS: LIDOCAINE 4% PATCH 1 PATCH TOPICAL (09:58)
[2024-11-26] MEDS: THERAGRAN 1 TABLET PO (09:58)
[2024-11-26] MEDS: LYRICA 200 MG PO ×2 (09:58→20:10)
[2024-11-26 10:17] LABS: Lipase 58 U/L (23-300)
[2024-11-26 11:15] VITALS: BP 158/80
--- NOTE | 2024-11-26 11:15 | W.PN.UPDATE ---
Update Note
Progress Note Update
I reviewed CT angiogram images (radiologist report pending). I compared also to CT scan I had done postoperatively 05/16/2024. It appears now that he has a pseudoaneurysm at the aortic ligated stump in the abdomen. It is contained, there is no
free rupture. It is unclear if this has been present prior (prior scans recently were done noncontrast). However certainly there is some pressurization likely there. The only issue now is that I do not know that there is a good other option here.
Taking him back to ligate the aorta more proximally would likely result in complete renal failure and need for hemodialysis. I do not know that it would be feasible to bypass to the renal arteries from above. I think that would be very high risk
and given the atherosclerosis in his arteries may not be tenable. In addition with a virulent organism like Pseudomonas that initiated this whole process, he likely would see the new stump if we were to ligate higher up on the aorta and that would
result in the same problem down the line. I think serious consideration should be made for hospice or palliative care given the severity of this. I will discuss with him further and see which route he wants to take once I am out of the operating
room. Continue IV antibiotics for now. Keep n.p.o. for now. I discussed findings with hospitalist.
[2024-11-26 12:16] LABS: Glucose - Point of Care 156 mg/dl (70-99)
[2024-11-26 12:34] LABS: APTT 94.5 Sec (23.4-35.0)
--- NOTE | 2024-11-26 13:27 | CON.GI ---
Addendum entered and electronically signed by Eileen Hernandez MD 11/26/24 16:21:
I saw and examined the patient.
The BRAN MIXER or PA's note was reviewed and I agree with the note.
Comment:
This patient is a 74-year-old man with a history of of hepatitis C with liver transplant in 2006 who had multiple biliary stents at the time. He also had a aortic aneurysm graft placed with subsequent graft infection and bacteremia. He continues
to have some intermittent abdominal pain and fevers. The question is if some of this can be due to his biliary issues in the past. The patient denies any major change in his symptoms although he cannot truly remember. 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 He does say his abdominal pain did improve since when he came in
abd: soft nontender
impression
liver transplant
abd pain
AAA graft infection
stable lfts
plan:
consider further imaging via MR to r/o cholangitis although numbers appear stable
will need records
follow lfts, wbc, temp
if question remains unclear could consider EUS
Original Note:
Consultation
-
Date/Time Consultation Requested: 11/26/24 0915
Date/Time Consultation Performed: 11/26/24 1330
Requesting Provider: Gopi Witt MD
Performing Provider: GUILLERMO Maciel, Eileen Hernandez MD
Reason for Consultation: eval pancreas
Medical History
Chief Complaint / HPI
Chief Complaint: decreased appetite, bloating
History of Present Illness:
Pt is 73yo with hx ETOH hepatitis/hep C s/p liver transplant 2006 [facility] on chronic tacrolimus, multiple bile duct stents, PAF on Eliquis, CAD with prior OR and stents on Plavix , PVC's, COPD, HTN, AAA with prior repair at [facility], DM, with
admission in April with concern for sepsis with stent graft infection and pseudomonas bacteremia. Underwent debridement of the retroperitoneum. He has had a chronic likely postoperative collection or chronic hematoma in the bed of the debridement.
Pt was then admitted in September with abdominal pain after fall with left ischial tuberosity fracture and retroperitoneal collection with neg fluid aspiration and collection. He returned again October with further aspiration of collection with neg
cx and no hematoma and treated with cipro fungal cx pending. He now returns with abdominal pain with nausea and vomiting. CT on admission concern for distal aorta infected thrombus (septic thrombophlebitis). CT also notes Mild soft tissue
stranding in the right upper quadrant adjacent to the pancreatic head and common bile duct, likely inflammatory soft tissue stranding extending superiorly from the retroperitoneal periaortic inflammatory changes. The possibility of pancreatitis
and/or ascending cholangitis is felt to be less likely, though not entirely excluded. CTA from 11/26 report pending. Pt is noted with fever up to 101 after admission.
On admission noted with WBC 13,100, creat 2.2 with prior admission 1.5-1.7, bili 1.4, D bili 0.6, AST 29, ALT 17, alk phos 153 with normal lipase.
Pt with some limited history as had pain med about 1-2 hours ago. He admits to abdominal pain diffuse with some vomiting and back pain. He was unable to to review any further GI symptoms. Per staff he was up walking to stretcher this am and did
eat breakfast. Per last evaluation in April. Last EGD ? [facility] with prior stenting and colonoscopy several years ago at [facility].
Past Medical History
Past Medical History: Arrhythmias (PAF, PVC's), CAD, COPD, HTN, NIDDM, OR and Other (ETOH cirrhosis- hep C s/p liver transplant 2006 at [facility], multiple bile duct stent, AAA, 04/2024 sepsis with stent graft infection and pseudomonas bacteremia.
Underwent debridement of the retroperitoneum. )
Past Surgical History: Cardiac (stents ), Orthopedic (back surgery) and Other (liver transplant 2006, AAA)
Social History
Tobacco: Former Smoker (quit January 2024 )
Alcohol: Occasional (very rare since transplant and hx heavy use prior to transplant )
Drug: Marijuana (daily ) and Other (distant hx drug use years ago )
Employment: Retired
Family History
Family History: Other (no family hx liver problems)
Allergies / Home Medications
Allergy/AdvReac Type Severity Reaction Status Date / Time
No Known Allergies Allergy Verified 11/25/24 14:09
�Medication �Instructions �Recorded
apixaban 5 mg tablet (Eliquis) 5 mg PO BID #60 tabs 11/30/18
clopidogrel 75 mg tablet 75 mg PO DAILY #30 tabs 11/30/18
albuterol sulfate 90 mcg/actuation 2 puff inhalation R Q6HPRN PRN sob 04/25/24
aerosol inhaler
amlodipine 2.5 mg tablet 2.5 mg PO DAILY Blood Pressure 04/25/24
atorvastatin 80 mg tablet 40 mg PO DAILY High Cholesterol 04/25/24
metformin 500 mg tablet 500 mg PO DAILY Diabetes 04/25/24
metoprolol succinate 100 mg 50 mg PO DAILY Heart 04/25/24
tablet,extended release 24 hr Disease/Condition
pregabalin 200 mg capsule 200 mg PO BID mild Pain 04/25/24
tacrolimus 0.5 mg capsule, 2 mg PO BID Transplant 04/25/24
immediate-release
therapeutic multivitamin 1 tab PO DAILY Supplement 04/25/24
pantoprazole 40 mg tablet,delayed 40 mg PO BID Gastrointestinal Issue 05/02/24
release (Protonix)
tiotropium bromide 2.5 2 puff inhalation DAILY 05/02/24
mcg/actuation mist for inhalation Lung/Breathing Issues
empagliflozin 25 mg tablet 25 mg PO DAILY Diabetes 10/19/24
fluticasone 100 mcg-salmeterol 50 1 inh inhalation R BID 10/19/24
mcg/dose blistr powdr for Lung/Breathing Issues
inhalation (Advair Diskus)
magnesium oxide 400 mg PO BID Supplement 10/19/24
lidocaine 4 % topical patch 1 patch topical DAILY #10 ea 10/23/24
polyethylene glycol 3350 17 gram 17 g PO DAILYPRN PRN constipation 11/01/24
oral powder packet
acetaminophen 325 mg tablet 650 mg (2 x 325 mg) PO Q4HPRN PRN 11/05/24
mild pain/QURESHI/temp> 100.4F #1 tab
ciprofloxacin HCl 500 mg tablet 500 mg PO DAILY #30 tabs 11/05/24
furosemide 40 mg tablet (Lasix) 40 mg PO DAILY #30 tabs 11/05/24
Review of Systems
-
Unable to obtain full review of systems at this time due to: Other (pt drifting off in conversation)
History Source: Family and Other (nursing staff )
Constitutional: Reports Fever
Respiratory: Reports Other (limited with lethargy )
Cardiac: Reports Other (limited with lethargy)
Abdomen/GI: Reports Abdominal Pain, Nausea and Vomiting
: Reports No Symptoms
Musculoskeletal: Reports No Symptoms
Skin: Reports No Symptoms
Neurological: Reports Weakness
Hematologic/Lymphatic: Reports No Symptoms
Vital Signs
Temp Pulse Resp BP Pulse Ox
98.6 F 97 20 158/80 99
11/26/24 11:15 11/26/24 11:15 11/26/24 11:15 11/26/24 11:15 11/26/24 11:15
Physical Exam
Exam
General: Other (sleepy but awakens to voice with questions but drifts off )
HEENT: Normocephalic and Other (mild jaundice )
Respiratory: Clear
Cardiac: Regular Rhythm
GI: Soft, Non Distended and Tender (mild diffuse )
Musculoskeletal: No Clubbing and No Cyanosis
Skin: Warm and Dry
Neuro: Other (sleepy but arousable and oriented )
Psych: Calm
Results
WBC 12.4 10^3/uL (4.8-10.8) H 11/26/24 05:04
Hgb 9.8 g/dL (13.0-18.0) L 11/26/24 05:04
Hct 29.9 % (39.0-52.0) L 11/26/24 05:04
MCV 89.0 fL (80.0-94.0) 11/26/24 05:04
Plt Count 250 10^3/uL (130-400) 11/26/24 05:04
Absolute Neuts (auto) 10.6 10^3/uL (1.4-6.5) H 11/25/24 14:23
APTT 94.5 Sec (23.4-35.0) H 11/26/24 12:10
Sodium 140 mmol/L (135-145) 11/26/24 05:04
Potassium 4.0 mmol/L (3.5-5.1) 11/26/24 05:04
Chloride 110 mmol/L (98-107) H 11/26/24 05:04
Carbon Dioxide 22 mmol/L (22-30) 11/26/24 05:04
BUN 42 mg/dl (9-20) H 11/26/24 05:04
Creatinine 2.0 mg/dL (0.7-1.3) H 11/26/24 05:04
Calcium 8.5 mg/dl (8.4-10.2) 11/26/24 05:04
Total Bilirubin 1.7 mg/dl (0.2-1.3) H 11/26/24 05:04
AST 28 U/L (17-59) 11/26/24 05:04
ALT 17 U/L (0-50) 11/26/24 05:04
Alkaline Phosphatase 138 U/L (38-126) H 11/26/24 05:04
Lipase 58 U/L (23-300) 11/26/24 05:04
Diagnostic Image Results:
11/26/24- CTA pending
11/25/24 CT Abd/pel Without Iv Or Oral
Findings highly suspicious for distal aorta infected thrombus (septic thrombophlebitis).
Left posterior and lateral pararenal space collection is smaller in size.
Mild soft tissue stranding in the right upper quadrant adjacent to the pancreatic head and common bile duct, likely inflammatory soft tissue stranding extending superiorly from the retroperitoneal periaortic inflammatory changes. The possibility of
pancreatitis and/or ascending cholangitis is felt to be less likely, though not entirely excluded.
Other stable chronic findings
The cortical margins of the vertebral bodies and endplates are maintained without bony destruction or evidence to suggest discitis/osteomyelitis.
11/01/24 CT Abd/pel Without Iv Or Oral
Changes of prior infrarenal endovascular graft explant with persistent stranding and mild lymphadenopathy within the retroperitoneum suggestive of ongoing infection. There is a 12.1 x 9.3 x 3.8 cm left retroperitoneal collection.
Colonic diverticulosis.
There is mild biliary duct dilation with diffuse wall thickening, similar to prior and for which cholangitis cannot be excluded. Recommend correlation with lab values.
There is a new sclerotic focus within the right inferior pubic ramus which may represent a subacute fracture
Prior GI Procedures:
EGD: last with ERCP several years ago
Colonoscopy: 2004 diverticulosis-- last at [facility] several years ago
Assessment / Plan
-
Pt is 73yo with hx ETOH hepatitis/hep C s/p liver transplant 2006 [facility] on chronic tacrolimus, multiple bile duct stents, PAF on Eliquis, CAD with prior OR and stents on Plavix , PVC's, COPD, HTN, AAA with prior repair at [facility], DM, with
admission in April with concern for sepsis with stent graft infection and pseudomonas bacteremia. Underwent debridement of the retroperitoneum. He has had a chronic likely postoperative collection or chronic hematoma in the bed of the debridement.
Pt was then admitted in September with abdominal pain after fall with left ischial tuberosity fracture and retroperitoneal collection with neg fluid aspiration and collection. He returned again October with further aspiration of collection with neg
cx and no hematoma and treated with cipro fungal cx pending. He now returns with abdominal pain with nausea and vomiting. CT on admission concern for distal aorta infected thrombus (septic thrombophlebitis). CT also notes Mild soft tissue
stranding in the right upper quadrant adjacent to the pancreatic head and common bile duct, likely inflammatory soft tissue stranding extending superiorly from the retroperitoneal periaortic inflammatory changes. The possibility of pancreatitis
and/or ascending cholangitis is felt to be less likely, though not entirely excluded. CTA from 11/26 report pending. Pt is noted with fever up to 101 after admission. On admission noted with WBC 13,100, creat 2.2 with prior admission 1.5-1.7,
bili 1.4, D bili 0.6, AST 29, ALT 17, alk phos 153 with normal lipase. Last EGD ? [facility] with prior stenting and colonoscopy several years ago at [facility].
-abdominal pain with vomiting
-fever 101 after admission
- CT concern for distal aorta infected thrombus (septic thrombophlebitis)
-concern for pseudoaneurysm at the aortic ligated stump in the abdomen.
-CT also with Mild soft tissue stranding in the right upper quadrant adjacent to the pancreatic head and common bile duct, likely inflammatory soft tissue stranding extending superiorly from the retroperitoneal periaortic inflammatory changes. The
possibility of pancreatitis and/or ascending cholangitis is felt to be less likely
-hx left retroperitoneal collection
-admission in April with concern for sepsis with stent graft infection and pseudomonas bacteremia
-2 recent admission s/p fall with aspiration of fluid collection with neg cx with fungal cx pending
-CHARISSE on admission
-hypotension on admission now improved
-hx liver transplant 2006(ETOH and hep C) [facility] on chronic tacrolimus
-mild bili and alk phos elevation
-hx multiple biliary stents last several years ago with prior anastomotic stricture and choledocholithiasis
-CAD/stents on Plavix
-PAF on Eliquis
other med problems:
-PVC's
-COPD
-HTN
-AAA with aortobil-iliac graft at [facility]
-new DM
-CM
-DDD
PLAN:
Etiology of continued abdominal pain with nausea and fever related to vascular issues, vs biliary vs other
vascular consult appreciated CTA report pending but input with consideration of hospice and palliative care with concern for pseudoaneurysm at the aortic ligated stump in the abdomen
from GI standpoint - there is question of cholangitis or stranding in pancreas- next step would be to consider MRI with MRCP
Pt with hx liver transplant and multiple ERCP's and stenting in past -- records are scanned from [facility] last ERCP 2015 with prior anastomotic stricture and choledocholithiasis
pt currently sleepy in exam -- if mental status allow and pt wishes to proceed with more aggressive care consider MRI imaging
cont abx per ID
trend labs
currently on heparin gtt
diet as tolerated
-
-
Thank you for consultation and allowing me to participate in the patient's care. Please call the customer relationship specialist GI physician during the after hours with any questions or concerns.
[2024-11-26 13:48] VITALS: BMI 23.7
--- NOTE | 2024-11-26 14:18 | W.PN.HOSP.TC ---
Today's Communication/Plan
-
iv abx
fluids
engagement in goals including palliative measures, spearheaded by vascular if appropriate
Assessment / Plan
Assessment / Plan
Physical Exam
General: Well Developed, Well Nourished and No Apparent Distress
HEENT: NormoCephalic, Moist mucous membranes and Atraumatic
Respiratory: Clear
Cardiac: S1/S2 and Regular Rhythm; No Murmur or Rub
GI: Soft, Non Tender, Non Distended, Normal Bowel Sounds and Other (IR drainage. ); No Organomegaly
Rectal: Deferred by Provider
Musculoskeletal: No Clubbing, No Cyanosis and No Edema
Skin: No Rash
Neuro: Nonfocal/grossly intact
Psych: Calm
# Abdominal pain associate with vomiting concern for septic thrombophlebitis
# History of left retroperitoneal collection
##Persistent stranding and mild lymphadenopathy within the left retroperitoneum
-s/p explant of infected aortic stent graft along with ax bi fem bypass presented to [facility] s/p fall;
- S/p IR drainage of collection 11/[address] with very minimum drainage.
- WBCs 13
- CT abdomen pelvis with impression of findings highly suspicious for distal aorta infected thrombus (septic thrombophlebitis).Left posterior and lateral pararenal space collection is smaller in size.
Mild soft tissue stranding in the right upper quadrant adjacent to the pancreatic head and common bile duct, likely inflammatory soft tissue stranding extending superiorly from the retroperitoneal periaortic inflammatory changes. The possibility of
pancreatitis and/or ascending cholangitis is felt to be less likely, though not entirely excluded. Other stable chronic findings, as described.The cortical margins of the vertebral bodies and endplates are maintained without bony destruction or
evidence to suggest discitis/osteomyelitis.
- IV Zosyn continued
- Blood cultures ordered in ER
-Appears now that he has a pseudoaneurysm at the aortic ligated stump in the abdomen.
-Vascular will engage in conversation for next steps including palliative measures
-Plavix continued
-ID consulted
-Cont iv abx
# Acute kidney injury on CKD stage IIIb likely dehydration
- Creatinine 2.2
-received normal saline in ER
-BMP in am
-normal saline continued
#Anemia of chronic disease
- Hemoglobin stable at 10.5, no active bleeding
- Continue to monitor
#Transaminitis
-most likely 2/2 to sepsis
-GI consulted although doubt with new findings, most likely not acute gi pathology but rather Vascular issue
#COPD
-Stable
-continue inhalers
#Paroxysmal atrial fibrillation
-obtain EKG
-eliquis held, and initiated on heparin drip in case any procedures.
-metoprolol continued
#Diabetes
-hold metformin
-sliding scale and empagliflozin
#LE edema
-hold Lasix
#Hypertension
#HLD
-cont Norvasc, statin
#hxt of liver transplant
-on tacrolimus
#GERD
-PPI continued
CODE STATUS DNR
DVT prophylaxis Eliquis
Total time spent on today's encounter was 51 minutes which included time spent in counseling the patient/family regarding diagnosis and treatment plan as listed above, goals of care, and symptom management. Case was discussed with nursing staff,
specialists, and care coordinators/case management. All labs and imaging personally reviewed by me. Remainder the time spent in detailed review of previous records, lab data, imaging, and other medical provider documentation.
Anticipated Discharge: > 48 hours
Subjective/Interval History
-
Date of Service: November 26, 2024
abd pain still present
Objective Data
-
Labs:
Laboratory Results
11/26/24 11/26/24 11/26/24
05:04 12:10 18:15
WBC 12.4 H
Hgb 9.8 L
Hct 29.9 L
Plt Count 250
APTT 64.4 H 94.5 H Pending
Sodium 140
Potassium 4.0
Chloride 110 H
Carbon Dioxide 22
BUN 42 H
Creatinine 2.0 H
Glucose 149 H
Calcium 8.5
Total Bilirubin 1.7 H
AST 28
ALT 17
Alkaline Phosphatase 138 H
Vital Signs:
Vital Signs
Temp Pulse Resp BP Pulse Ox
98.6 F 97 20 158/80 99
11/26/24 11:15 11/26/24 11:15 11/26/24 11:15 11/26/24 11:15 11/26/24 11:15
I&O
11/25/24 11/26/24 11/27/24
06:59 06:59 06:59
Intake Total 1158 / 1158
Output Total 5 / 5 125 / 125
Balance 1153 / 1153 -125 / -125
Review of Systems
-
History Source: Patient
All other systems: Not reviewed unless documented
Data Reviewed
-
CT Scan: Report Reviewed by me
Labs: Labs Reviewed by me
--- NOTE | 2024-11-26 14:30 | W.CON.NEPH ---
Consultation
-
Date/Time Consultation Requested: 11/26/24 0651
Date/Time Consultation Performed: 11/26/24 1500
Requesting Provider: Moriah Silverman
Performing Provider: Charlene Davila
Reason for Consultation: CHARISSE on CKD
Medical History
-
Chief Complaint: mid abdominal pain assoicated with n/v
History of Present Illness:
74-year-old with past medical history of liver transplant(Hep c, ETOH cirrhosis) on tac, coronary disease clopidogrel, Afib on eliquis, hypertension on Amlodipine and metoprolol, AAA, recent explant of infected aortic stent graft along with ax bi
fem bypass in April 2024 with chronic back pain and in Oct admit CT scan demonstrating RP collection status post IR drain placement for suspected seroma who d/c on 11/05/24 presented to us on 11/25 with mid abdominal pain associated with n/v, dry
heaving for past two days. Had fever overnight, denied cough,congestion, chest pain, sob. denied dysuria or hematuria. CT concerning for Findings highly suspicious for distal aorta infected thrombus (septic thrombophlebitis). Vascular evaluated and
had CT angio however his cr is elevated at 2.2 on admit and today at 2. last admit in Oct he had CHARISSE cr peak at 1.8 and improved to 1.5 at d/c. His baseline in Sep was 1.1. Nephrology is asked to eval for CHARISSE and also s/p contrast study today.
Past Medical History
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
Past Surgical History: Other (Abdominal aortic aneurysm graft with aortobifemoral graft and stent infection and removal, Right axillary bifemoral bypass with ringed [place] graft in April 2024, Left knee arthroscopy, Liver transplant, Back surgery)
Social History
Tobacco: Non-Smoker
Alcohol: None
Family History
Family History: Not Pertinent
Allergies / Home Medications
Allergy/AdvReac Type Severity Reaction Status Date / Time
No Known Allergies Allergy Verified 11/25/24 14:09
�Medication �Instructions �Recorded �Confirmed �Type
apixaban 5 mg tablet (Eliquis) 5 mg PO BID #60 tabs 11/30/18 11/25/24 Rx
clopidogrel 75 mg tablet 75 mg PO DAILY #30 tabs 11/30/18 11/25/24 Rx
albuterol sulfate 90 mcg/actuation 2 puff inhalation R Q6HPRN PRN sob 04/25/24 11/25/24 History
aerosol inhaler
amlodipine 2.5 mg tablet 2.5 mg PO DAILY Blood Pressure 04/25/24 11/25/24 History
atorvastatin 80 mg tablet 40 mg PO DAILY High Cholesterol 04/25/24 11/25/24 History
metformin 500 mg tablet 500 mg PO DAILY Diabetes 04/25/24 11/25/24 History
metoprolol succinate 100 mg 50 mg PO DAILY Heart 04/25/24 11/25/24 History
tablet,extended release 24 hr Disease/Condition
pregabalin 200 mg capsule 200 mg PO BID mild Pain 04/25/24 11/25/24 History
tacrolimus 0.5 mg capsule, 2 mg PO BID Transplant 04/25/24 11/25/24 History
immediate-release
therapeutic multivitamin 1 tab PO DAILY Supplement 04/25/24 11/01/24 History
pantoprazole 40 mg tablet,delayed 40 mg PO BID Gastrointestinal Issue 05/02/24 11/25/24 History
release (Protonix)
tiotropium bromide 2.5 2 puff inhalation DAILY 05/02/24 11/25/24 History
mcg/actuation mist for inhalation Lung/Breathing Issues
empagliflozin 25 mg tablet 25 mg PO DAILY Diabetes 10/19/24 11/25/24 History
fluticasone 100 mcg-salmeterol 50 1 inh inhalation R BID 10/19/24 11/25/24 History
mcg/dose blistr powdr for Lung/Breathing Issues
inhalation (Advair Diskus)
magnesium oxide 400 mg PO BID Supplement 10/19/24 11/25/24 History
lidocaine 4 % topical patch 1 patch topical DAILY #10 ea 10/23/24 11/25/24 Rx
polyethylene glycol 3350 17 gram 17 g PO DAILYPRN PRN constipation 11/01/24 11/25/24 History
oral powder packet
acetaminophen 325 mg tablet 650 mg (2 x 325 mg) PO Q4HPRN PRN 11/05/24 11/25/24 Rx
mild pain/QURESHI/temp> 100.4F #1 tab
ciprofloxacin HCl 500 mg tablet 500 mg PO DAILY #30 tabs 11/05/24 11/25/24 Rx
furosemide 40 mg tablet (Lasix) 40 mg PO DAILY #30 tabs 11/05/24 11/25/24 Rx
Review of Systems
-
All other systems: Negative unless noted
Physical Exam
Vital Signs
Vital Signs
Temp Pulse Resp BP Pulse Ox
98.6 F 97 20 158/80 99
11/26/24 11:15 11/26/24 11:15 11/26/24 11:15 11/26/24 11:15 11/26/24 11:15
Lab Results
WBC 12.4 10^3/uL (4.8-10.8) H 11/26/24 05:04
RBC 3.36 10^6/uL (4.70-6.10) L 11/26/24 05:04
Hgb 9.8 g/dL (13.0-18.0) L 11/26/24 05:04
Hct 29.9 % (39.0-52.0) L 11/26/24 05:04
Plt Count 250 10^3/uL (130-400) 11/26/24 05:04
Sodium 140 mmol/L (135-145) 11/26/24 05:04
Potassium 4.0 mmol/L (3.5-5.1) 11/26/24 05:04
Chloride 110 mmol/L (98-107) H 11/26/24 05:04
Carbon Dioxide 22 mmol/L (22-30) 11/26/24 05:04
BUN 42 mg/dl (9-20) H 11/26/24 05:04
Creatinine 2.0 mg/dL (0.7-1.3) H 11/26/24 05:04
eGFR 34.16 11/26/24 05:04
Glucose 149 mg/dl (70-99) H 11/26/24 05:04
Calcium 8.5 mg/dl (8.4-10.2) 11/26/24 05:04
Albumin 3.2 g/dl (3.5-5.0) L 11/26/24 05:04
Physical Exam
General: Awake, Alert, Oriented, AOx3 and No Distress
HEENT: EOMI, Anicteric, Conjunctivae Clear and Facial Symmetry
Respiratory: Clear, Normal Excursion and Nonlabored Respirations
Cardiac: S1/S2 and Regular Rate/Rhythm
Breast: Deferred by me
Abdomen: Soft and Nondistended
Musculoskeletal: No Cyanosis and No Edema
Skin: No Rash
Neuro: Nonfocal/Grossly Intact
Psych: Insight/judgement good and Appropriate
Data Reviewed
-
Radiology: Report Reviewed by me and Discussed with Patient
Labs: Labs Reviewed by me and Discussed with Patient
Assessment/Plan
-
Impression:
Abdominal pain associate with vomiting concern for septic thrombophlebitis
History of left retroperitoneal collection
Persistent stranding and mild lymphadenopathy within the left retroperitoneum
-s/p explant of infected aortic stent graft along with ax bi fem bypass presented to [facility] s/p fall;
- S/p IR drainage of collection 11/[address] with very minimum drainage.
Acute kidney injury on CKD stage IIIb
Anemia of chronic disease
Transaminitis
COPD
Paroxysmal atrial fibrillation
Diabetes
LE edema
Hypertension
HLD
hxt of liver transplant
GERD
Plan.
A/w back pain and cocern of septic thrombophlebitis of aortic stump site
CHARISSE-suspect prerenal and sepsis
bland UA, follow UOP
CT abd no hydro
he is now s/p CT angio with contrast exposure -high risk of further CHARISSE
cotn IVF , IV abx per primary
BP stable
meds dose renally
noted vasc recs-no surg interventions- pallitaive vs hospice
d/w pt
labs in am
[2024-11-26 15:15] VITALS: BP 136/68
[2024-11-26] MEDS: NOVOLOG FLEXPEN-LOW RESISTANCE 1 UNITS SC (15:39)
[2024-11-26] MEDS: NSS 1000 IV (15:40)
--- NOTE | 2024-11-26 16:10 | W.PN.UPDATE ---
Addendum entered and electronically signed by Willis Brannon MD 11/26/24 16:20:
Daughter updated. She understands all. She is appreciative.
Original Note:
Update Note
Progress Note Update
See my separate note for CT scan findings. I discussed findings with patient. Discussed gravity of situation as well as limited options really. (See my other note). Discussed that any surgical correction has significant risk of reinfection down
the line due to purulent organism. In addition high risk of renal failure and/or bowel ischemia. (Assuming success surgically). Any surgical correction also has high mortality risk. Only other option would be consideration for coil embolizing
the pseudoaneurysm but this would be a temporary fix. Alternatively could attempt chimney stents into the visceral vessels, however that runs the risk of reinfection of those stents eventually (high risk of that). In addition this may not be
easily feasible due to access limitations. I discussed that if he is to undergo any attempt at any major invasive intervention, would recommend he is treated at a tertiary care center due to need for adequate supportive care especially in the
setting of a history of orthotopic liver transplant. However, I again discussed with him that based on my review of everything, I do not think this is a sustainable/solvable problem that he has going on. Initially when I explained this all to him
he was angling towards going downtown for opinion. I then called the transfer center and spoke to the vascular surgeon, Dr. Barriga on-call at the [facility]. I relayed the clinical story to her. She also agreed that likely
futility of options here. She did not think that a transfer would necessarily offer her much. She did say she would be willing to accept the patient if she did wish to be transferred, but the likelihood is that nothing clinically different would
be rendered. I then went back to the patient and spoke to him about all this. He now wishes to not go anywhere. Discussed with him palliation. I reached out to hospitalist and have conveyed the story to him as well. I will get palliative care
involved. I did call patient's daughter and speak to her initially. Discussed with her that I would reach out to [facility] and then get back to her. I tried her back but did not get through. Will try her again soon.
[2024-11-26 16:45] LABS: Glucose - Point of Care 142 mg/dl (70-99)
[2024-11-26] MEDS: HEPARIN 25000 UNITS/250 ML IV (18:45)
[2024-11-26 18:56] LABS: APTT 71.9 Sec (23.4-35.0)
[2024-11-26 19:30] VITALS: BP 126/60
[2024-11-26] MEDS: REMOVE LIDOCAINE PATCH 1 PATCH REMOVE (20:11)
[2024-11-26 20:57] LABS: Glucose - Point of Care 169 mg/dl (70-99)
[2024-11-26] MEDS: ADVAIR HFA 45/21 MCG INHALER INH (21:11)
[2024-11-26 23:39] VITALS: BP 139/66
[2024-11-27] VITALS (7 sets, daily range): BP systolic 107–159; BP diastolic 58–76
[2024-11-27 01:45] LABS: APTT 157.8 Sec (23.4-35.0)
[2024-11-27] MEDS: NSS 1000 IV (03:35)
[2024-11-27] MEDS: ZOSYN 50 IV (05:07)
[2024-11-27] MEDS: SPIRIVA RESPIMAT 2.5 MCG 2 PUFF INH (07:53)
[2024-11-27] MEDS: ADVAIR HFA 45/21 MCG INHALER 2 PUFF INH (07:53)
[2024-11-27 08:01] LABS: Glucose - Point of Care 152 mg/dl (70-99)
[2024-11-27 08:44] LABS: Hematocrit 28.7 % (39.0-52.0); Hemoglobin 9.5 g/dL (13.0-18.0); Mean Corp Hgb Conc. 33.1 g/dL (33.0-37.0); Mean Corpuscular Volume 87.2 fL (80.0-94.0); Platelet Count 249 10^3/uL (130-400); Red Cell Dist. Width 14.7 % (11.5-14.5)
[2024-11-27 08:51] LABS: APTT 112.2 Sec (23.4-35.0)
[2024-11-27] MEDS: DILAUDID 0.5 MG IV ×2 (09:39→10:29)
[2024-11-27] MEDS: LYRICA 200 MG PO ×2 (09:40→19:28)
[2024-11-27] MEDS: PROGRAF 2 MG PO ×2 (09:41→19:28)
[2024-11-27] MEDS: NORVASC 2.5 MG PO (09:42)
[2024-11-27] MEDS: MAGNESIUM OXIDE 400 MG PO ×2 (09:42→19:29)
[2024-11-27] MEDS: PLAVIX 75 MG PO (09:43)
[2024-11-27] MEDS: THERAGRAN 1 TABLET PO (09:43)
[2024-11-27] MEDS: LIPITOR 40 MG PO (09:43)
[2024-11-27] MEDS: PROTONIX 40 MG PO ×2 (09:44→19:28)
[2024-11-27] MEDS: TOPROL XL 50 MG PO (09:44)
[2024-11-27] MEDS: LIDOCAINE 4% PATCH 1 PATCH TOPICAL (09:44)
[2024-11-27] MEDS: NOVOLOG FLEXPEN-LOW RESISTANCE 1 UNITS SC ×2 (09:45→12:36)
--- NOTE | 2024-11-27 09:45 | W.PN.ID1 ---
Date of Service
Date of Service: November 27, 2024
Today's Communication
DC further antibiotics.
ID will sign off.
Assessment / Plan
# Mycotic aneurysm of aortic stump
# Fever
# Leukocytosis trending up
# Presumed post-op seroma with left retroperitoneal fluid collection with drain placed. cx's x 2 neg.
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
# Liver transplant on tacrolimus.
# CHARISSE
- blood cx's neg to date
- Per Vascular, patient's mycotic aneurysm is non-operable, high risk mortality.
- Pt failed cipro chronic suppression.
- Pt acceptable to palliative or hospice.
- DC antibiotics.
- Emotional support provided.
ID will sign off.
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
AAA [id number] stent graft infection with Pseudomonas s/p Right axillary bifemoral artery bypass with new ringed [place] graft ; explant of entirety of infected aortic endograft, wide debridement of retroperitoneum (05/01/24) s/p 6 weeks of
ceftazidime followed by cipro 500mg daily suppression (as requested by Dr. Vaughn [facility]).
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
Paroxysmal atrial fibrillation
CAD
Hypertension
Neuropathy
COPD
Cholecystectomy
Back surgery
Left ischial tuberosity fracture from fall
History of multiple bile duct stents
Chief Complaint
-: Fever and Leukocytosis
Subjective / Review of Systems
c/o abdominal pain
Vital Signs / Physical Exam
Vital Signs
Vital Signs
Temp Pulse Resp BP Pulse Ox
98.6 F 88 16 134/69 94
11/27/24 07:00 11/27/24 07:54 11/27/24 07:54 11/27/24 07:00 11/27/24 07:00
Physical Exam
Constitutional: Chronically Ill
Cardiovascular: Regular Rate
Pulmonary: Clear
Gastrointestinal: Soft, Tender (mild) and Non Distended
Genito-Urinary: Negative CVA Tenderness
Neurological: AO x 3
Objective Data
Lab Data
Lab Results
11/27/24 08:30
APTT 112.2 Sec (23.4-35.0) H 11/27/24 08:30
Estimated Creat Clear 35 ml/min 11/26/24 05:04
Total Bilirubin 1.7 mg/dl (0.2-1.3) H 11/26/24 05:04
AST 28 U/L (17-59) 11/26/24 05:04
ALT 17 U/L (0-50) 11/26/24 05:04
Alkaline Phosphatase 138 U/L (38-126) H 11/26/24 05:04
Most recent labs reviewed.
Micro Results:
11/26/24 03:30 MRSA Screen - Final
Nose No Methicillin Resistant Staphylococcus aureus isolated.
11/25/24 18:14 Blood Culture - Preliminary
Blood/Venous No Growth in 24 hours- Final report to follow
11/25/24 18:14 Blood Culture - Preliminary
Blood/Venous No Growth in 24 hours- Final report to follow
11/26/2024 CTA c/a/p: Findings suggesting a mycotic aneurysm of the aortic stump with associated thrombus formation. Enlarged. Associated moderate para-aortic lymphadenopathy. Stable
Mild stranding about the pancreatic head likely inflammatory change extending from the above process. Stable
Stable left posterior pararenal space fluid collection and percutaneous drainage catheter.
Patent axillobifemoral graft
11/25/2024 CT a/p wo contrast: Progressive enlargement of the presumed oversewn distal aorta (as stated previously associated with prior abdominal aortic graft explantation) currently measuring up to 7.2 cm transverse by 5.2 cm AP, with previous
corresponding measurements of 5.9 x 4.3 cm., There is increased attenuation of the distal oversewn aorta, the margins are indistinct secondary to progressive increased retroperitoneal periaortic soft tissue stranding and haziness. There is also more
prominent/progressive retroperitoneal adenopathy, with index lymph node measuring 3 cm representing an anterior interaortocaval lymph node (image 30 series 301). Other adjacent and surrounding lymph nodes have also increased in size and number.
Given the prior history of abdominal aortic graft explantation and surgical oversewing of the aorta, appearance is highly suspicious for infected thrombus (septic thrombophlebitis). Left posterior and lateral pararenal space collection is
smaller in size. Mild soft tissue stranding in the right upper quadrant adjacent to the pancreatic head and common bile duct, likely inflammatory soft tissue stranding extending superiorly from the retroperitoneal periaortic inflammatory changes.
The possibility of pancreatitis and/or ascending cholangitis is felt to be less likely, though not entirely excluded.
Care Review
Plan reviewed with: Physician (Drs. Dobbs and Clovis)
[2024-11-27] MEDS: MIRALAX 17 GRAMS PO (09:46)
[2024-11-27 10:13] LABS: Blood Urea Nitrogen 19 mg/dl (9-20); Calcium 7.2 mg/dl (8.4-10.2); Carbon Dioxide 12 mmol/L (22-30); Chloride 122 mmol/L (98-107); Estimated Creatinine Clearance 70 ml/min; Glucose 106 mg/dl (70-99); Potassium 3.0 mmol/L (3.5-5.1); Sodium 143 mmol/L (135-145); eGFR > 60.00
--- NOTE | 2024-11-27 11:11 | W.CON.PAL ---
Consultation
-
Date/Time Consultation Requested: 11/26/24
Date/Time Consultation Performed: 11/27/24
Requesting Provider: Dr Nguyễn
Performing Provider: Dr Andujar
Reason for Consult: Goals of Care Discussion, Advanced Care Planning and Symptom & Pain Management
Consult Requested By: Patient's Physician
Reason for Admission
Illness Course/HPI
74-year-old with extensive past medical history including but not limited to liver transplant, CAD, HTN, AAA, VA, A-fib on Eliquis, history of abdominal aortic aneurysm repair with aorto by iliac stent graft infected with Pseudomonas s/p explant, R
axillary-bifem bypass (04/2024) who presented to ED on account of severe abdominal pain and found to have infected aortic thrombus with peseudoaneurysm.
Since admission pt has continued to decline and has been seen by vascular and ID, vascular had recommended no surgical interventions and palliative medicine consulted to further discuss goals of care.
Pt met in bed in pain, he stated his pain is in mid abdomen, constant, 8/10, not relieved by prn I.V Dilaudid ' does not even touch the pain', has nausea and vomiting, pain not worsened by eating but his appetite is very poor and he has dry mouth
and poor taste, has constipation for about a week now and sleep is very poor on account of pain, he denied depression or anxiety.
Pt stated he wants to focus on comfort, quality of life for him is to be comfortable, he does not want any heroic measures.
Functional Status
Pt is deconditioned, he was living alone prior to admission on a one floor set up house, he ambulated with a walker in last couple months and has grown weaker, he had a paid aide come to his house daily, VN and PT weekly.
Goals of Care Discussion
-
Individuals Present for Discussion & Relationship to Patient:
Pt and palliative care , updated son Mike later in hospital when he visited.
Patient able to participate in discussion at time of visit: Yes
Patient's Information Preferences: Fully Involved/Able to Participate
Patient Goals
Pt goal is very clearly comfort, he stated he has a living will and his HCP is daughter Akanksha and secondary Son Mike Thibodeaux, if his heart stopped he would not like resucitation, no intubation, no HD, no feeding tubes. He does not want any further
procedures at expense of comfort and he just wants to focus on comfort, he shared he did not know what hospice entailed when i asked what he knew, explained hospice versus palliative and he is open to hospice referral.
Pain & Symptom Assessment
Patient Symptoms
Patient Symptoms: Pain
[place] Symptom Scale 0=none, 10=worst
Pain: 8
Tired: 8
Drowsy: 8
Nausea: 8
Appetite: 0
Depressed: 0
Anxiety: 0
[place]
Objective Data
-
Objective Data:
Vital Signs
Temp Pulse Resp BP Pulse Ox
98.6 F 88 16 134/69 94
11/27/24 07:00 11/27/24 07:54 11/27/24 07:54 11/27/24 07:00 11/27/24 07:00
Laboratory Results
11/27/24 08:30
11/27/24 08:30
APTT 112.2 Sec (23.4-35.0) H 11/27/24 08:30
Hemoglobin A1c 6.2 % (4.0-5.6) H 11/26/24 05:04
Total Protein 6.7 g/dl (6.3-8.2) 11/26/24 05:04
Albumin 3.2 g/dl (3.5-5.0) L 11/26/24 05:04
Urine Color Yellow 11/25/24 19:46
Urine Clarity Clear (Clear) 11/25/24 19:46
Urine pH 5.0 (5.0-9.0) 11/25/24 19:46
Ur Specific [place] 1.010 (<1.030) 11/25/24 19:46
Urine Ketones Negative (Negative) 11/25/24 19:46
Urine Bilirubin Negative (Negative) 11/25/24 19:46
Palliative Performance Scale
Palliative Performance Scale:
PPS Level Ambulation Activity & Evidence of Disease Self Care Intake Conscious Level
100% Full Normal Activity & Work; Full Intake Full
No Evidence of Disease
90% Full Normal Activity & Work; Full Normal Full
Some Evidence of Disease
80% Full Normal Activity with Effort Full Normal or Full
Some Evidence of Disease Reduced
70% Reduced Unable Normal Job/Work Full Normal or Full
Significant Disease Reduced
60% Reduced Unable Hobby/Housework Occasional Normal or Full or Confusion
Significant Disease Assistance Reduced
50% Mainly Sit/Lie Unable to do Any Work Considerable Normal or Full or Confusion
Extensive Disease Assistance Req'd Reduced
40% Mainly in Bed Unable to do Most Activity Mainly Assistance Normal or Full or Drowsy;
Extensive Disease Reduced +/- Confusion
30% Totally Bed Unable to do Any Activity Total Care Normal or Full or Drowsy;
Bound Extensive Disease Reduced +/- Confusion
20% Totally Bed Bound Unable to do Any Activity Total Care Minimal to Full or Drowsy;
Extensive Disease Sips +/- Confusion
10% Totally Bed Bound Unable to do Any Activity Total Care Mouth Care Drowsy or Coma;
Extensive Disease Only +/- Confusion
0%
PPS Score Level:
Palliative Performance Score Response
Palliative Performance Score Response: 50%
Physical Exam
-
General: Appears in Distress, Pain, Conversant and Appears Chronically Ill
HEENT: Normocephalic and Atraumatic
Respiratory: Clear to Auscultation
Cardiac: S1/S2
Peripheral Vascular: No Edema
GI: Tender and Distended
Skin: Warm and Dry
Neuro: Awake, AO x 3 and Other
Psych: Calm
Assessment / Plan
-
Assessment/Plan:
74-year-old with extensive past medical history including but not limited to liver transplant, CAD, HTN, VA, A-fib on Eliquis, history of abdominal aortic aneurysm repair with aorto by iliac stent graft infected with Pseudomonas s/p explant, R
axillary-bifem bypass (04/2024) who presented to ED on account of severe abdominal pain and found to have infected aortic thrombus with peseudoaneurysm.
Pt understands he is very ill, he would like to focus on comfort.
Nociceptive somatic and visceral pain from his medical condition is severe, requiring multiple prn I.V opioids, he stated he does not get any relief from present IV dilaudid dose so would benefit from I.V Dilaudid 1mg q3-4hprn, we can calculate OME
he requires of this new dose and schedule long acting based on his use.
Constipation;can be multifactorial but also contributing can be opioid use, would recommend give senna 2 tabs BID if no contraindication, can hold for loose stool, dulcolax suppository daily prn.
Hospice referral.
Care Reviewed
Data Reviewed
Medical Tests: I reviewed
--- NOTE | 2024-11-27 11:19 | CM ---
manager sales and marketing reviewed patient's chart and met with patient and family at bedside, patient lives alone in a one story home, one step to enter, patient is independent with adl's and uses a cane or walker with ambulation, case management manager received a
consult for possible hospice, case manger met with patient and discussed hospice options and patient has selected [place] [facility], referral sent to [facility].
PCP: Odilia HOWELL in [place]
Pharmacy: [facility] in [place]
Plan; Referral sent to [facility].
[2024-11-27 11:38] LABS: Glucose - Point of Care 157 mg/dl (70-99)
--- NOTE | 2024-11-27 12:10 | HOSPNOTE ---
Left message for daughter to please call me to discuss hospice and the philosophy. More information to follow.
--- NOTE | 2024-11-27 13:40 | W.PN.GI.CBS2 ---
Today's Communication / Plan
-
supportive care
Assessment / Plan
-
Palliative consult noted
No new GI symptoms
off antibiotics
will sign off call with questions
Subjective
Subjective
Date of Service: November 27, 2024
Pt with no new complaints, stable pain
Objective
Data Reviewed
Laboratory Data:
Laboratory Results
11/27/24 08:30
11/27/24 08:30
Laboratory Results
APTT 112.2 Sec (23.4-35.0) H 11/27/24 08:30
Total Bilirubin 1.7 mg/dl (0.2-1.3) H 11/26/24 05:04
AST 28 U/L (17-59) 11/26/24 05:04
ALT 17 U/L (0-50) 11/26/24 05:04
Alkaline Phosphatase 138 U/L (38-126) H 11/26/24 05:04
Lipase 58 U/L (23-300) 11/26/24 05:04
Vital Signs and I&O:
Vital Signs
Temp Pulse Resp BP Pulse Ox
98.3 F 83 18 107/61 94
11/27/24 11:00 11/27/24 11:00 11/27/24 11:00 11/27/24 11:00 11/27/24 11:00
I&O
11/26/24 11/27/24 11/28/24
06:59 06:59 06:59
Intake Total 1158 / 1158 2192 / 2192
Output Total 727 / 727
Balance 1153 / 1153 1465 / 1465
Physical Exam
Physical Exam
GI: Soft
Neuro: Non Focal (oriented)
--- NOTE | 2024-11-27 14:06 | W.PN.HOSP.TC ---
Today's Communication/Plan
-
Palliative care discussions, agreed to hospice. Engage case management
Pain control
Assessment / Plan
Assessment / Plan
Physical Exam
General: Well Developed, Well Nourished and No Apparent Distress
HEENT: NormoCephalic, Moist mucous membranes and Atraumatic
Respiratory: Clear
Cardiac: S1/S2 and Regular Rhythm; No Murmur or Rub
GI: Soft, Non Tender, Non Distended, Normal Bowel Sounds and Other (IR drainage. ); No Organomegaly
Rectal: Deferred by Provider
Musculoskeletal: No Clubbing, No Cyanosis and No Edema
Skin: No Rash
Neuro: Nonfocal/grossly intact
Psych: Calm
# Abdominal pain associate with vomiting concern for septic thrombophlebitis
# History of left retroperitoneal collection
##Persistent stranding and mild lymphadenopathy within the left retroperitoneum
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
-See note from vascular; As discussion between myself, Vascular, and vascular at [place] [facility] - agreement of no further options other that what is described on vascular note
-Patient after extensive conversation - desires to focus on comfort and hospice
-s/p explant of infected aortic stent graft along with ax bi fem bypass presented to [facility] s/p fall;
- S/p IR drainage of collection 11/[address] with very minimum drainage.
- WBCs 13
- CT abdomen pelvis with impression of findings highly suspicious for distal aorta infected thrombus (septic thrombophlebitis).Left posterior and lateral pararenal space collection is smaller in size.
Mild soft tissue stranding in the right upper quadrant adjacent to the pancreatic head and common bile duct, likely inflammatory soft tissue stranding extending superiorly from the retroperitoneal periaortic inflammatory changes. The possibility of
pancreatitis and/or ascending cholangitis is felt to be less likely, though not entirely excluded. Other stable chronic findings, as described.The cortical margins of the vertebral bodies and endplates are maintained without bony destruction or
evidence to suggest discitis/osteomyelitis.
-Plavix continued
-ID consulted
-iv abx stopped as now hospice
# Acute kidney injury on CKD stage IIIb likely dehydration
- Creatinine 2.2
-received normal saline in ER
�Resolved
# Non-anion anion gap metabolic acidosis
� Most likely secondary to normal saline with elevated chloride
� Discontinue IV fluids
� Hospice
#Anemia of chronic disease
- Hemoglobin stable at 10.5, no active bleeding
- Continue to monitor
#Transaminitis
-most likely 2/2 to sepsis
-GI consulted although doubt with new findings, most likely not acute gi pathology but rather Vascular issue
#COPD
-Stable
-continue inhalers
#Paroxysmal atrial fibrillation
-obtain EKG
-eliquis held, and initiated on heparin drip in case any procedures.
-metoprolol continued
#Diabetes
-hold metformin
-sliding scale and empagliflozin
#LE edema
-hold Lasix
#Hypertension
#HLD
-cont Norvasc, statin
#hxt of liver transplant
-on tacrolimus
#GERD
-PPI continued
CODE STATUS DNR
DVT prophylaxis Eliquis
Total time spent on today's encounter was 53 minutes which included time spent in counseling the patient/family regarding diagnosis and treatment plan as listed above, goals of care, and symptom management. Case was discussed with nursing staff,
specialists, and care coordinators/case management. All labs and imaging personally reviewed by me. Remainder the time spent in detailed review of previous records, lab data, imaging, and other medical provider documentation.
Anticipated Discharge: 24 - 48 hours
Subjective/Interval History
-
Date of Service: November 27, 2024
no acute events
Objective Data
-
Labs:
Laboratory Results
11/27/24 11/27/24
08:30 16:00
WBC 17.4 H
Hgb 9.5 L
Hct 28.7 L
Plt Count 249
APTT 112.2 H Pending
Sodium 143
Potassium 3.0 L
Chloride 122 H
Carbon Dioxide 12 L*
BUN 19
Creatinine 1.0
Glucose 106 H
Calcium 7.2 L
Vital Signs:
Vital Signs
Temp Pulse Resp BP Pulse Ox
98.3 F 83 18 107/61 94
11/27/24 11:00 11/27/24 11:00 11/27/24 11:00 11/27/24 11:00 11/27/24 11:00
I&O
11/26/24 11/27/24 11/28/24
06:59 06:59 06:59
Intake Total 1158 / 1158 2192 / 2192
Output Total 727 / 727
Balance 1153 / 1153 1465 / 1465
Review of Systems
-
History Source: Patient
All other systems: Not reviewed unless documented
Data Reviewed
-
CT Scan: Report Reviewed by me
Labs: Labs Reviewed by me
[2024-11-27] MEDS: DILAUDID 1 MG IV ×2 (14:38→19:35)
--- NOTE | 2024-11-27 14:48 | HOSPNOTE ---
I met with family and they are pursuing [facility] with hospice. The daughter met with the facility last week. They family understands that the patient is not safe to return home with hospice since the patient resides alone. The family asked
that a referral be sent to [place] if [facility] does not work out. The family will call me tomorrow with an update. CM updated.
[2024-11-27 16:39] LABS: Glucose - Point of Care 129 mg/dl (70-99)
[2024-11-27] MEDS: NOVOLOG FLEXPEN-LOW RESISTANCE SC (16:50)
[2024-11-27] MEDS: NSS IV (16:52)
--- NOTE | 2024-11-27 17:45 | W.PN.NEPH.PH ---
Today's Communication / Plan
-
change to bicarb IVF
Assessment/Plan
-
Impression:
Abdominal pain associate with vomiting concern for septic thrombophlebitis
History of left retroperitoneal collection
Persistent stranding and mild lymphadenopathy within the left retroperitoneum
-s/p explant of infected aortic stent graft along with ax bi fem bypass presented to [facility] s/p fall;
- S/p IR drainage of collection 11/[address] with very minimum drainage.
Acute kidney injury on CKD stage IIIb
Anemia of chronic disease
Transaminitis
COPD
Paroxysmal atrial fibrillation
Diabetes
LE edema
Hypertension
HLD
hxt of liver transplant
GERD
Plan.
A/w back pain and cocern of septic thrombophlebitis of aortic stump site
CHARISSE-suspect prerenal and sepsis
cr improving to 1 with IVF
bland UA, CT abd no hydro
met acidosis-change iVF to bicarb , add po bicarb
family reports his po intake is poor
BP stable
no surg interventions
plan palliative vs hospice
-
-
Date of Service: November 27, 2024
CC / HPI / ROS
-
Chief Complaint:
CHARISSE
History of Present Illness:
CHARISSE/Cr down to 1
BP stable
WBC up at 17.4
k low 3, bicarb 12
Review of Systems:
no CP/SOB
abd pain fair control
Labs
-
Labs:
WBC 17.4 10^3/uL (4.8-10.8) H 11/27/24 08:30
RBC 3.29 10^6/uL (4.70-6.10) L 11/27/24 08:30
Hgb 9.5 g/dL (13.0-18.0) L 11/27/24 08:30
Hct 28.7 % (39.0-52.0) L 11/27/24 08:30
Plt Count 249 10^3/uL (130-400) 11/27/24 08:30
Sodium 143 mmol/L (135-145) 11/27/24 08:30
Potassium 3.0 mmol/L (3.5-5.1) L 11/27/24 08:30
Chloride 122 mmol/L (98-107) H 11/27/24 08:30
Carbon Dioxide 12 mmol/L (22-30) L* 11/27/24 08:30
BUN 19 mg/dl (9-20) 11/27/24 08:30
Creatinine 1.0 mg/dL (0.7-1.3) 11/27/24 08:30
eGFR > 60.00 11/27/24 08:30
Glucose 106 mg/dl (70-99) H 11/27/24 08:30
Calcium 7.2 mg/dl (8.4-10.2) L 11/27/24 08:30
Albumin 3.2 g/dl (3.5-5.0) L 11/26/24 05:04
Physical Exam
-
Vital Signs:
Vital Signs
Temp Pulse Resp BP Pulse Ox
99.0 F 77 16 125/58 97
11/27/24 15:00 11/27/24 15:00 11/27/24 15:00 11/27/24 15:00 11/27/24 15:00
Cardiovascular:: Regular rate and rhythm
Respiratory:: Bilateral: CTA
Lung Excursion:: Normal
Abdomen:: Soft and Tender (mild TTP )
Extremity Edema:: +1: Left: and +2: Right:
Vaughn Catheter: No
[2024-11-27] MEDS: SODIUM BICARBONATE 1075 MEQ IV (18:08)
[2024-11-27] MEDS: KCL 40 MEQ PO (18:08)
[2024-11-27] MEDS: ELIQUIS 5 MG PO (19:28)
[2024-11-27] MEDS: SENOKOT 17.2 MG PO (19:29)
[2024-11-27] MEDS: REMOVE LIDOCAINE PATCH 1 PATCH REMOVE (20:43)
[2024-11-27] MEDS: ADVAIR HFA 45/21 MCG INHALER INH (20:51)
[2024-11-27 21:02] LABS: Glucose - Point of Care 147 mg/dl (70-99)
[2024-11-27] MEDS: SODIUM BICARBONATE 650 MG PO (22:45)
[2024-11-28] VITALS (7 sets, daily range): BP systolic 122–154; BP diastolic 64–79; PULSE 80; O2SAT 95
[2024-11-28] MEDS: DILAUDID 1 MG IV ×3 (04:27→12:54)
[2024-11-28 07:21] LABS: Glucose - Point of Care 167 mg/dl (70-99)
[2024-11-28] MEDS: ADVAIR HFA 45/21 MCG INHALER 2 PUFF INH (07:59)
[2024-11-28] MEDS: PROGRAF 2 MG PO ×2 (08:00→19:20)
[2024-11-28] MEDS: SPIRIVA RESPIMAT 2.5 MCG 2 PUFF INH (08:00)
[2024-11-28] MEDS: SODIUM BICARBONATE 650 MG PO ×3 (08:02→21:51)
[2024-11-28] MEDS: LYRICA 200 MG PO ×2 (08:02→19:19)
[2024-11-28] MEDS: MIRALAX 17 GRAMS PO (08:03)
[2024-11-28] MEDS: MAGNESIUM OXIDE 400 MG PO ×2 (08:03→19:20)
[2024-11-28] MEDS: NORVASC 2.5 MG PO (08:04)
[2024-11-28] MEDS: ELIQUIS 5 MG PO ×2 (08:05→19:19)
[2024-11-28] MEDS: PLAVIX 75 MG PO (08:05)
[2024-11-28] MEDS: PROTONIX 40 MG PO ×2 (08:05→19:19)
[2024-11-28] MEDS: THERAGRAN 1 TABLET PO (08:06)
[2024-11-28] MEDS: LIPITOR 40 MG PO (08:06)
[2024-11-28] MEDS: TOPROL XL 50 MG PO (08:06)
[2024-11-28] MEDS: SENOKOT 17.2 MG PO ×2 (08:07→19:20)
[2024-11-28] MEDS: NOVOLOG FLEXPEN-LOW RESISTANCE 1 UNITS SC ×3 (08:11→17:49)
[2024-11-28] MEDS: LIDOCAINE 4% PATCH 1 PATCH TOPICAL (08:11)
--- NOTE | 2024-11-28 10:23 | CM ---
Chart reviewed patient was seen by physical therapy this morning, plan is for patient to go on hospice. Patient was evaluated by [facility] this morning at 9:30am and they will review cost with patient and family and
they made dependency case manager aware that DME form needs to be completed, dependency case manager will contact physician.
Plan; Await final determination from [facility].
[2024-11-28] MEDS: SODIUM BICARBONATE 1075 MEQ IV (10:25)
[2024-11-28] MEDS: DILAUDID 0.5 MG IV (10:33)
--- NOTE | 2024-11-28 11:23 | HOSPNOTE ---
Addendum entered by Kimberlee Shelby RN 11/28/24 18:03:
Patient has been accepted to [facility] however they are unable to admit patient until Sunday. Patient has been needing IV doses of Dilaudid. Will monitor over the weekend and assess for inpatient hospice by Sunday and if he is not inpatient
appropriate then will stay with original plan to go to [facility] with their preferred hospice. Hospice to follow and more information to follow.
Original Note:
I believe the plan is for patient to go to [facility]. The family looked at this facility last week and the plan was for patient to move to [facility]. The facility came to evaluate the patient this am and we are awaiting a decision. The
family understands the monthly cost for the facility. The family and patient are still choosing hospice and if accepted at [facility] will use their preferred hospice.
[2024-11-28 11:53] LABS: Glucose - Point of Care 150 mg/dl (70-99)
--- NOTE | 2024-11-28 15:37 | W.PN.HOSP.TC ---
Today's Communication/Plan
-
comfort measures
increase pain regimen
Assessment / Plan
Assessment / Plan
Physical Exam
General: Well Developed, Well Nourished and No Apparent Distress
HEENT: NormoCephalic, Moist mucous membranes and Atraumatic
Respiratory: Clear
Cardiac: S1/S2 and Regular Rhythm; No Murmur or Rub
GI: Soft, Non Tender, Non Distended, Normal Bowel Sounds and Other (IR drainage. ); No Organomegaly
Rectal: Deferred by Provider
Musculoskeletal: No Clubbing, No Cyanosis and No Edema
Skin: No Rash
Neuro: Nonfocal/grossly intact
Psych: Calm
# Abdominal pain associate with vomiting concern for septic thrombophlebitis
# History of left retroperitoneal collection
##Persistent stranding and mild lymphadenopathy within the left retroperitoneum
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
-See note from vascular; As discussion between myself, Vascular, and vascular at [place] [facility] - agreement of no further options other that what is described on vascular note
-Patient after extensive conversation - desires to focus on comfort and hospice
-s/p explant of infected aortic stent graft along with ax bi fem bypass presented to [facility] s/p fall;
- S/p IR drainage of collection 11/[address] with very minimum drainage.
- WBCs 13
- CT abdomen pelvis with impression of findings highly suspicious for distal aorta infected thrombus (septic thrombophlebitis).Left posterior and lateral pararenal space collection is smaller in size.
Mild soft tissue stranding in the right upper quadrant adjacent to the pancreatic head and common bile duct, likely inflammatory soft tissue stranding extending superiorly from the retroperitoneal periaortic inflammatory changes. The possibility of
pancreatitis and/or ascending cholangitis is felt to be less likely, though not entirely excluded. Other stable chronic findings, as described.The cortical margins of the vertebral bodies and endplates are maintained without bony destruction or
evidence to suggest discitis/osteomyelitis.
-Plavix continued
-ID consulted
-iv abx stopped as now hospice
# Acute kidney injury on CKD stage IIIb likely dehydration
- Creatinine 2.2
-received normal saline in ER
�Resolved
# Non-anion anion gap metabolic acidosis
� Most likely secondary to normal saline with elevated chloride
� Discontinue IV fluids
� Hospice
#Anemia of chronic disease
- Hemoglobin stable at 10.5, no active bleeding
- Continue to monitor
#Transaminitis
-most likely 2/2 to sepsis
-GI consulted although doubt with new findings, most likely not acute gi pathology but rather Vascular issue
#COPD
-Stable
-continue inhalers
#Paroxysmal atrial fibrillation
-obtain EKG
-eliquis held, and initiated on heparin drip in case any procedures.
-metoprolol continued
#Diabetes
-hold metformin
-sliding scale and empagliflozin
#LE edema
-hold Lasix
#Hypertension
#HLD
-cont Norvasc, statin
#hxt of liver transplant
-on tacrolimus
#GERD
-PPI continued
CODE STATUS DNR
DVT prophylaxis Eliquis
Anticipated Discharge: > 48 hours
Subjective/Interval History
-
Date of Service: November 28, 2024
still in pain
Objective Data
-
Vital Signs:
Vital Signs
Temp Pulse Resp BP Pulse Ox
97.3 F 72 16 124/67 98
11/28/24 15:24 11/28/24 15:24 11/28/24 15:24 11/28/24 15:24 11/28/24 15:24
I&O
11/27/24 11/28/24 11/29/24
06:59 06:59 06:59
Intake Total 2192 / 2192 1540 / 1540
Output Total 727 / 727 1025 / 1025
Balance 1465 / 1465 515 / 515
Review of Systems
-
History Source: Patient
All other systems: Not reviewed unless documented
Data Reviewed
-
CT Scan: Report Reviewed by me
Labs: Labs Reviewed by me
[2024-11-28 16:49] LABS: Glucose - Point of Care 151 mg/dl (70-99)
[2024-11-28] MEDS: DILAUDID 1.5 MG IV ×2 (18:27→22:07)
[2024-11-28] MEDS: REMOVE LIDOCAINE PATCH 1 PATCH REMOVE (19:21)
[2024-11-28] MEDS: ADVAIR HFA 45/21 MCG INHALER INH (21:50)
[2024-11-29] MEDS: DILAUDID 1.5 MG IV ×2 (03:18→06:38)
[2024-11-29 07:43] VITALS: BP 119/77
[2024-11-29] MEDS: SPIRIVA RESPIMAT 2.5 MCG 2 PUFF INH (08:03)
[2024-11-29] MEDS: ADVAIR HFA 45/21 MCG INHALER 2 PUFF INH ×2 (08:04→18:02)
[2024-11-29 09:00] LABS: Glucose - Point of Care 156 mg/dl (70-99)
[2024-11-29] MEDS: LIDOCAINE 4% PATCH 1 PATCH TOPICAL (09:01)
[2024-11-29] MEDS: NORVASC 2.5 MG PO (09:04)
[2024-11-29] MEDS: SENOKOT 17.2 MG PO (09:04)
[2024-11-29] MEDS: PROTONIX 40 MG PO ×2 (09:04→20:37)
[2024-11-29] MEDS: MAGNESIUM OXIDE 400 MG PO (09:04)
[2024-11-29] MEDS: TOPROL XL 50 MG PO (09:04)
[2024-11-29] MEDS: LYRICA 200 MG PO ×2 (09:04→20:37)
[2024-11-29] MEDS: PROGRAF 2 MG PO (09:04)
[2024-11-29] MEDS: PLAVIX 75 MG PO (09:04)
[2024-11-29] MEDS: SODIUM BICARBONATE 650 MG PO (09:05)
[2024-11-29] MEDS: NOVOLOG FLEXPEN-LOW RESISTANCE 1 UNITS SC (09:05)
[2024-11-29] MEDS: ELIQUIS 5 MG PO (09:05)
[2024-11-29] MEDS: LIPITOR 40 MG PO (09:05)
[2024-11-29] MEDS: THERAGRAN 1 TABLET PO (09:05)
[2024-11-29] MEDS: DULCOLAX 10 MG RECTAL (09:18)
[2024-11-29] MEDS: DILAUDID 1 MG IV (09:18)
[2024-11-29] MEDS: MIRALAX 17 GRAMS PO (09:19)
[2024-11-29] MEDS: FLUSH (NSS) 2 FLUSH IV ×2 (09:20→16:19)
[2024-11-29 12:14] LABS: Glucose - Point of Care 211 mg/dl (70-99)
--- NOTE | 2024-11-29 12:15 | HOSPNOTE ---
Patient has declined rapidly. Patient to be started on a Dilaudid drip. Spoke to attending and primary nurse, plan will be to admit patient into inpatient hospice tomorrow morning. Spoke to daughter Akanksha and she is in agreement with this plan as
well. Emotional support provided.
--- NOTE | 2024-11-29 13:07 | W.PN.HOSP.TC ---
Today's Communication/Plan
-
IV morphine ggt
Assessment / Plan
Assessment / Plan
Physical Exam
General: Well Developed, Well Nourished and No Apparent Distress
HEENT: NormoCephalic, Moist mucous membranes and Atraumatic
Respiratory: Clear
Cardiac: S1/S2 and Regular Rhythm; No Murmur or Rub
GI: Soft, Non Tender, Non Distended, Normal Bowel Sounds and Other (IR drainage. ); No Organomegaly
Rectal: Deferred by Provider
Musculoskeletal: No Clubbing, No Cyanosis and No Edema
Skin: No Rash
Neuro: Nonfocal/grossly intact
Psych: Calm
# Abdominal pain associate with vomiting concern for septic thrombophlebitis
# History of left retroperitoneal collection
##Persistent stranding and mild lymphadenopathy within the left retroperitoneum
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
-See note from vascular; As discussion between myself, Vascular, and vascular at [place] [facility] - agreement of no further options other that what is described on vascular note
-Patient after extensive conversation - desires to focus on comfort and hospice
-s/p explant of infected aortic stent graft along with ax bi fem bypass presented to [facility] s/p fall;
- S/p IR drainage of collection 11/[address] with very minimum drainage.
- WBCs 13
- CT abdomen pelvis with impression of findings highly suspicious for distal aorta infected thrombus (septic thrombophlebitis).Left posterior and lateral pararenal space collection is smaller in size.
Mild soft tissue stranding in the right upper quadrant adjacent to the pancreatic head and common bile duct, likely inflammatory soft tissue stranding extending superiorly from the retroperitoneal periaortic inflammatory changes. The possibility of
pancreatitis and/or ascending cholangitis is felt to be less likely, though not entirely excluded. Other stable chronic findings, as described.The cortical margins of the vertebral bodies and endplates are maintained without bony destruction or
evidence to suggest discitis/osteomyelitis.
-Plavix continued
-ID consulted
-iv abx stopped as now hospice
# Acute kidney injury on CKD stage IIIb likely dehydration
- Creatinine 2.2
-received normal saline in ER
�Resolved
# Non-anion anion gap metabolic acidosis
� Most likely secondary to normal saline with elevated chloride
� Discontinue IV fluids
� Hospice
#Anemia of chronic disease
- Hemoglobin stable at 10.5, no active bleeding
- Continue to monitor
#Transaminitis
-most likely 2/2 to sepsis
-GI consulted although doubt with new findings, most likely not acute gi pathology but rather Vascular issue
#COPD
-Stable
-continue inhalers
#Paroxysmal atrial fibrillation
-obtain EKG
-eliquis held, and initiated on heparin drip in case any procedures.
-metoprolol continued
#Diabetes
-hold metformin
-sliding scale and empagliflozin
#LE edema
-hold Lasix
#Hypertension
#HLD
-cont Norvasc, statin
#hxt of liver transplant
-on tacrolimus
#GERD
-PPI continued
CODE STATUS DNR
DVT prophylaxis Eliquis
Dispo: Transitioning to inpt hospice tomorrow; Start IV morphine ggt today
Anticipated Discharge: Within 24 hours
Subjective/Interval History
-
Date of Service: November 29, 2024
still in pain, fell while trying to ambulating to alleviate pain
Objective Data
-
Vital Signs:
Vital Signs
Temp Pulse Resp BP Pulse Ox
98.2 F 87 16 119/77 97
11/29/24 07:43 11/29/24 08:09 11/29/24 08:09 11/29/24 07:43 11/29/24 08:09
I&O
11/28/24 11/29/24 11/30/24
06:59 06:59 06:59
Intake Total 1540 / 1540 420 / 420
Output Total 1025 / 1025 300 / 300
Balance 515 / 515 120 / 120
Review of Systems
-
History Source: Patient
All other systems: Not reviewed unless documented
Data Reviewed
-
CT Scan: Report Reviewed by me
Labs: Labs Reviewed by me
[2024-11-29] MEDS: NOVOLOG FLEXPEN-LOW RESISTANCE 2 UNITS SC ×2 (13:28→17:30)
[2024-11-29 15:50] VITALS: BP 151/62
[2024-11-29] MEDS: MORPHINE SULFATE 2 MG IV ×4 (16:19→23:03)
[2024-11-29 17:05] LABS: Glucose - Point of Care 242 mg/dl (70-99)
[2024-11-29] MEDS: ELIQUIS PO (20:30)
[2024-11-29] MEDS: REMOVE LIDOCAINE PATCH 1 PATCH REMOVE (20:31)
[2024-11-29] MEDS: MAGNESIUM OXIDE PO (20:31)
[2024-11-29] MEDS: SENOKOT PO (20:32)
[2024-11-29 22:21] VITALS: BP 107/66
[2024-11-29] MEDS: MORPHINE 100 IV (23:58)
[2024-11-30 03:00] VITALS: BP 136/80
[2024-11-30] MEDS: MORPHINE SULFATE 2 MG IV ×5 (03:54→11:18)
[2024-11-30] MEDS: FLUSH (NSS) 2 FLUSH IV ×3 (07:13→11:20)
[2024-11-30 07:55] VITALS: BP 113/71
[2024-11-30] MEDS: ADVAIR HFA 45/21 MCG INHALER 2 PUFF INH (07:59)
[2024-11-30] MEDS: SPIRIVA RESPIMAT 2.5 MCG 2 PUFF INH (07:59)
[2024-11-30 08:25] VITALS: BP 113/71
[2024-11-30] MEDS: LYRICA 200 MG PO (09:44)
[2024-11-30] MEDS: THERAGRAN 1 TABLET PO (09:45)
[2024-11-30] MEDS: MAGNESIUM OXIDE 400 MG PO (09:45)
[2024-11-30] MEDS: MIRALAX PO (09:45)
[2024-11-30] MEDS: LIDOCAINE 4% PATCH 1 PATCH TOPICAL (09:45)
[2024-11-30] MEDS: SENOKOT PO (09:45)
[2024-11-30] MEDS: PROTONIX 40 MG PO (09:46)
[2024-11-30] MEDS: ELIQUIS 5 MG PO (09:46)
[2024-11-30 09:48] LABS: Glucose - Point of Care 226 mg/dl (70-99)
[2024-11-30] MEDS: NOVOLOG FLEXPEN-LOW RESISTANCE 2 UNITS SC (09:49)
[2024-11-30] MEDS: PLAVIX 75 MG PO (09:51)
--- NOTE | 2024-11-30 11:50 | W.PN.HOSP.TC ---
Addendum entered and electronically signed by Gopi Dobbs MD 11/30/24 14:35:
[id number]
Original Note:
Today's Communication/Plan
-
comfort measures
morphine ggt
dc to inpt hospice
Assessment / Plan
Assessment / Plan
Physical Exam
General: Well Developed, Well Nourished and No Apparent Distress
HEENT: NormoCephalic, Moist mucous membranes and Atraumatic
Respiratory: Clear
Cardiac: S1/S2 and Regular Rhythm; No Murmur or Rub
GI: Soft, Non Tender, Non Distended, Normal Bowel Sounds and Other (IR drainage. ); No Organomegaly
Rectal: Deferred by Provider
Musculoskeletal: No Clubbing, No Cyanosis and No Edema
Skin: No Rash
Neuro: Nonfocal/grossly intact
Psych: Calm
# Abdominal pain associate with vomiting concern for septic thrombophlebitis
# History of left retroperitoneal collection
##Persistent stranding and mild lymphadenopathy within the left retroperitoneum
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
-See note from vascular; As discussion between myself, Vascular, and vascular at [place] [facility] - agreement of no further options other that what is described on vascular note
-Patient after extensive conversation - desires to focus on comfort and hospice
-s/p explant of infected aortic stent graft along with ax bi fem bypass presented to [facility] s/p fall;
- S/p IR drainage of collection 11/[address] with very minimum drainage.
- WBCs 13
- CT abdomen pelvis with impression of findings highly suspicious for distal aorta infected thrombus (septic thrombophlebitis).Left posterior and lateral pararenal space collection is smaller in size.
Mild soft tissue stranding in the right upper quadrant adjacent to the pancreatic head and common bile duct, likely inflammatory soft tissue stranding extending superiorly from the retroperitoneal periaortic inflammatory changes. The possibility of
pancreatitis and/or ascending cholangitis is felt to be less likely, though not entirely excluded. Other stable chronic findings, as described.The cortical margins of the vertebral bodies and endplates are maintained without bony destruction or
evidence to suggest discitis/osteomyelitis.
-Plavix continued
-ID consulted
-iv abx stopped as now hospice
# Acute kidney injury on CKD stage IIIb likely dehydration
- Creatinine 2.2
-received normal saline in ER
�Resolved
# Non-anion anion gap metabolic acidosis
� Most likely secondary to normal saline with elevated chloride
� Discontinue IV fluids
� Hospice
#Anemia of chronic disease
- Hemoglobin stable at 10.5, no active bleeding
- Continue to monitor
#Transaminitis
-most likely 2/2 to sepsis
-GI consulted although doubt with new findings, most likely not acute gi pathology but rather Vascular issue
#COPD
-Stable
-continue inhalers
#Paroxysmal atrial fibrillation
-obtain EKG
-eliquis held, and initiated on heparin drip in case any procedures.
-metoprolol continued
#Diabetes
-hold metformin
-sliding scale and empagliflozin
#LE edema
-hold Lasix
#Hypertension
#HLD
-cont Norvasc, statin
#hxt of liver transplant
-on tacrolimus
#GERD
-PPI continued
CODE STATUS DNR
DVT prophylaxis Eliquis
More than 30 minutes spent in discharge including
Final examination of the patient
Summarizing hospital stay
Instructions for continuing care to all relevant caregivers
Preparation of discharge records, prescriptions, and referral forms
Total time spent (in minutes): 36
Anticipated Discharge: Today
Subjective/Interval History
-
Date of Service: November 30, 2024
still in pain on morphine ggt
Objective Data
-
Vital Signs:
Vital Signs
Temp Pulse Resp BP Pulse Ox
97.7 F 89 16 113/71 95
11/30/24 07:55 11/30/24 08:03 11/30/24 08:03 11/30/24 07:55 11/30/24 08:03
I&O
11/29/24 11/30/24 12/01/24
06:59 06:59 06:59
Intake Total 420 / 420 360 / 360
Output Total 300 / 300
Balance 120 / 120 360 / 360
Review of Systems
-
History Source: Patient
All other systems: Not reviewed unless documented
Data Reviewed
-
CT Scan: Report Reviewed by me
Labs: Labs Reviewed by me
--- NOTE | 2024-11-30 11:51 | W.DS.TRANS ---
DC Summary - Therapy Director
-
Discharge Instructions:
Discharge Diagnosis/Procedures
# Abdominal pain associate with vomiting concern
for septic thrombophlebitis
# History of left retroperitoneal collection
##Persistent stranding and mild lymphadenopathy
within the left retroperitoneum
# pseudoaneurysm at the aortic ligated stump in
the abdomen
Instructions:
Stand-Alone Forms:
Changes to Home Medications: Yes
Discharge Medications:
DC Medications w/original date entered in [facility]
apixaban 5 mg tablet (Eliquis) 5 mg PO BID #60 tabs 11/30/18
clopidogrel 75 mg tablet 75 mg PO DAILY #30 tabs 11/30/18
albuterol sulfate 90 mcg/actuation aerosol inhaler 2 puff inhalation R Q6HPRN PRN sob 04/25/24
amlodipine 2.5 mg tablet 2.5 mg PO DAILY Blood Pressure 04/25/24
atorvastatin 80 mg tablet 40 mg PO DAILY High Cholesterol 04/25/24
metformin 500 mg tablet 500 mg PO DAILY Diabetes 04/25/24
metoprolol succinate 100 mg tablet,extended release 24 hr 50 mg PO DAILY Heart Disease/Condition 04/25/24
pregabalin 200 mg capsule 200 mg PO BID mild Pain 04/25/24
tacrolimus 0.5 mg capsule, immediate-release 2 mg PO BID Transplant 04/25/24
therapeutic multivitamin 1 tab PO DAILY Supplement 04/25/24
pantoprazole 40 mg tablet,delayed release (Protonix) 40 mg PO BID Gastrointestinal Issue 05/02/24
tiotropium bromide 2.5 mcg/actuation mist for inhalation 2 puff inhalation DAILY Lung/Breathing Issues 05/02/24
empagliflozin 25 mg tablet 25 mg PO DAILY Diabetes 10/19/24
fluticasone 100 mcg-salmeterol 50 mcg/dose blistr powdr for inhalation (Advair Diskus) 1 inh inhalation R BID Lung/Breathing Issues 10/19/24
magnesium oxide 400 mg PO BID Supplement 10/19/24
lidocaine 4 % topical patch 1 patch topical DAILY #10 ea 10/23/24
polyethylene glycol 3350 17 gram oral powder packet 17 g PO DAILYPRN PRN constipation 11/01/24
acetaminophen 325 mg tablet 650 mg (2 x 325 mg) PO Q4HPRN PRN mild pain/QURESHI/temp> 100.4F #1 tab 11/05/24
ciprofloxacin HCl 500 mg tablet 500 mg PO DAILY #30 tabs 11/05/24
furosemide 40 mg tablet (Lasix) 40 mg PO DAILY #30 tabs 11/05/24
Home Medication Changes
stop all home medications
Pending Results: No
[2024-11-30 12:37] LABS: Glucose - Point of Care 160 mg/dl (70-99)
[2024-11-30] MEDS: NOVOLOG FLEXPEN-LOW RESISTANCE 1 UNITS SC (16:17)
== END 2024-11-30 12:38 | disposition hospice, inpatient (51) | DRG 300 ==
LOC: 2 NORTH 20:33
PROVIDERS: Emergency Medicine; Registered Nurse; ADMITTING PHYSICIAN Student in an Organized Health Care Education/Training Program; ATTENDING PHYSICIAN Internal Medicine; CONSULT PHYSICIAN Internal Medicine; CONSULT PHYSICIAN Student in an Organized Health Care Education/Training Program; EMERGENCY PHYSICIAN Emergency Medicine; FAMILY PHYSICIAN Family Medicine; OTHER PHYSICIAN Internal Medicine; OTHER PHYSICIAN Internal Medicine Infectious Disease; OTHER PHYSICIAN Surgery Vascular Surgery
DX: I80.9 Phlebitis and thrombophlebitis of unspecified site (principal); Z94.4 Liver transplant status; N18.32 Chronic kidney disease, stage 3b; F17.200 Nicotine dependence, unspecified, uncomplicated; J44.9 Chronic obstructive pulmonary disease, unspecified; I48.0 Paroxysmal atrial fibrillation; E11.22 Type 2 diabetes mellitus with diabetic chronic kidney disease; E11.40 Type 2 diabetes mellitus with diabetic neuropathy, unspecified; E11.51 Type 2 diabetes mellitus with diabetic peripheral angiopathy without gangrene; I12.9 Hypertensive chronic kidney disease with stage 1 through stage 4 chronic kidney disease, or unspecified chronic kidney disease; K21.9 Gastro-esophageal reflux disease without esophagitis; Z66 Do not resuscitate; K59.00 Constipation, unspecified; D63.1 Anemia in chronic kidney disease; Z51.5 Encounter for palliative care; Z79.01 Long term (current) use of anticoagulants; Z79.02 Long term (current) use of antithrombotics/antiplatelets; Z79.60 Long term (current) use of unspecified immunomodulators and immunosuppressants; Z79.899 Other long term (current) drug therapy
CPT/HCPCS: 71275; 74174; 74176; 80048; 80053; 81003; 81015; 82248; 82570; 82962; 83036; 83690; 84300; 85025; 85027; 85730; 87040; 87070; 93005; 94640; 96365; 97163; 99285; J7030; Q9967

== ENCOUNTER 2024-11-30 12:39 | Inpatient (IN) | payer OTHER, SELFPAY ==
--- NOTE | 2024-11-30 11:57 | HPS.HSE ---
Family Physician
-
Family Physician: INTERVIEWE UNKNOWN - PT NOT
Chief Complaint
-
abd pain
History of Present Illness
74-year-old with past medical history for coronary disease, hypertension, ID, AAA, recent explant of infected aortic stent graft along with ax bi fem bypass with chronic back pain and CT scan demonstrating RP collection status post IR drain
placement suspect seroma presented to us with mid abdominal pain associated with n/v, dry heaving for past two days. patient stated no bowel movement for two days. he was taking Tylenol and asa with no relief in his symptoms. CT imaging with
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 It is contained, there is no free rupture. Vascular closely engaged. Any surgical correction also has high mortality risk. After
discussion between vascular, medicine team, and patient - he would like to opt for comfort and hospice. Patient transitioned over to inpatient hospice due to required high levels of IV pain regimen.
Medical History
Past Medical History
Past Medical History: Reports Other
Additional Past Medical History:
Venous insufficiency, AAA, osteoarthritis, popliteal artery aneurysm, history of alcohol and HCV cirrhosis, bilateral stents, coronary artery disease, hypertension, COPD, type 2 diabetes
Past Surgical History: Reports Other
Additional Past Surgical History:
Liver transplant, CAD stent, AAA repair, back surgery
Social History
Tobacco: Other (POTS)
Alcohol: None
Drug: None
Family History
Family History: Not pertinent
Allergies / Home Medications
Allergies reflects when Allergies were last updated in [email or web address].
Home Medications with original date entered in [email or web address]
Allergy/Medication List:
Allergies
Allergy/AdvReac Type Severity Reaction Status Date / Time
No Known Allergies Allergy Verified 11/25/24 14:09
Home Medications
apixaban 5 mg tablet (Eliquis) 5 mg PO BID #60 tabs 11/30/18
clopidogrel 75 mg tablet 75 mg PO DAILY #30 tabs 11/30/18
albuterol sulfate 90 mcg/actuation aerosol inhaler 2 puff inhalation R Q6HPRN PRN sob 04/25/24
amlodipine 2.5 mg tablet 2.5 mg PO DAILY Blood Pressure 04/25/24
atorvastatin 80 mg tablet 40 mg PO DAILY High Cholesterol 04/25/24
metformin 500 mg tablet 500 mg PO DAILY Diabetes 04/25/24
metoprolol succinate 100 mg tablet,extended release 24 hr 50 mg PO DAILY Heart Disease/Condition 04/25/24
pregabalin 200 mg capsule 200 mg PO BID mild Pain 04/25/24
tacrolimus 0.5 mg capsule, immediate-release 2 mg PO BID Transplant 04/25/24
therapeutic multivitamin 1 tab PO DAILY Supplement 04/25/24
pantoprazole 40 mg tablet,delayed release (Protonix) 40 mg PO BID Gastrointestinal Issue 05/02/24
tiotropium bromide 2.5 mcg/actuation mist for inhalation 2 puff inhalation DAILY Lung/Breathing Issues 05/02/24
empagliflozin 25 mg tablet 25 mg PO DAILY Diabetes 10/19/24
fluticasone 100 mcg-salmeterol 50 mcg/dose blistr powdr for inhalation (Advair Diskus) 1 inh inhalation R BID Lung/Breathing Issues 10/19/24
magnesium oxide 400 mg PO BID Supplement 10/19/24
lidocaine 4 % topical patch 1 patch topical DAILY #10 ea 10/23/24
polyethylene glycol 3350 17 gram oral powder packet 17 g PO DAILYPRN PRN constipation 11/01/24
acetaminophen 325 mg tablet 650 mg (2 x 325 mg) PO Q4HPRN PRN mild pain/QURESHI/temp> 100.4F #1 tab 11/05/24
ciprofloxacin HCl 500 mg tablet 500 mg PO DAILY #30 tabs 11/05/24
furosemide 40 mg tablet (Lasix) 40 mg PO DAILY #30 tabs 11/05/24
Review of Systems
-
History Source: Patient
A 12 point ROS was completed and negative except as noted: Yes
Physical Exam
Vital Signs
Vital Signs
Temp Pulse Resp BP Pulse Ox
99.4 F 95 27 108/79 93
11/25/24 18:16 11/25/24 19:15 11/25/24 19:15 11/25/24 19:00 11/25/24 19:15
Physical Exam
General: Well Developed, Well Nourished and No Apparent Distress
HEENT: NormoCephalic, Moist mucous membranes and Atraumatic
Respiratory: Clear
Cardiac: S1/S2 and Regular Rhythm; No Murmur or Rub
GI: Soft, Non Tender, Non Distended, Normal Bowel Sounds and Other (IR drainage. ); No Organomegaly
Rectal: Deferred by Provider
Musculoskeletal: No Clubbing, No Cyanosis and No Edema
Skin: No Rash
Neuro: Nonfocal/grossly intact
Psych: Calm
Laboratory Results
-
11/25/24 14:23
11/25/24 14:23
Laboratory Results
Total Bilirubin 1.4 mg/dl (0.2-1.3) H 11/25/24 14:23
AST 29 U/L (17-59) 11/25/24 14:23
ALT 17 U/L (0-50) 11/25/24 14:23
Alkaline Phosphatase 153 U/L (38-126) H 11/25/24 14:23
Lipase 64 U/L (23-300) 11/25/24 14:23
Data Reviewed
-
CT Scan: Report Reviewed by me
Lab Data: Labs Reviewed by me
Impression/Plan
-
IMPRESSION:
74-year-old with past medical history for coronary disease, hypertension, ID, AAA, recent explant of infected aortic stent graft along with ax bi fem bypass with chronic back pain and CT scan demonstrating RP collection status post IR drain
placement suspect seroma presented to us with mid abdominal pain associated with n/v, dry heaving for past two days. patient stated no bowel movement for two days. Found to have pseudoaneurysm. Opting for hospice after discussion with patient.
PLAN:
# Abdominal pain associate with vomiting concern for septic thrombophlebitis
# History of left retroperitoneal collection
##Persistent stranding and mild lymphadenopathy within the left retroperitoneum
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
-See note from vascular; As discussion between myself, Vascular, and vascular at [facility] - agreement of no further options other that what is described on vascular note
-Patient after extensive conversation - desires to focus on comfort and hospice
-s/p explant of infected aortic stent graft along with ax bi fem bypass presented to [facility] s/p fall;
- S/p IR drainage of collection 11/[address] with very minimum drainage.
- WBCs 13
- CT abdomen pelvis with impression of findings highly suspicious for distal aorta infected thrombus (septic thrombophlebitis).Left posterior and lateral pararenal space collection is smaller in size.
Mild soft tissue stranding in the right upper quadrant adjacent to the pancreatic head and common bile duct, likely inflammatory soft tissue stranding extending superiorly from the retroperitoneal periaortic inflammatory changes. The possibility of
pancreatitis and/or ascending cholangitis is felt to be less likely, though not entirely excluded. Other stable chronic findings, as described.The cortical margins of the vertebral bodies and endplates are maintained without bony destruction or
evidence to suggest discitis/osteomyelitis.
-Plavix continued
-ID consulted
-iv abx stopped as now hospice
#LE edema
-can resume Lasix
#CKD stage IIIb likely dehydration
#Anemia of chronic disease
#Transaminitis
#COPD
#Paroxysmal atrial fibrillation
#Diabetes
#Hypertension
#HLD
#hxt of liver transplant
#GERD
CODE STATUS DNR
--- NOTE | 2024-11-30 13:05 | CM ---
Pt was admitted on inpatient hospice.
SW will remain available for family support and consults
[2024-11-30 15:40] VITALS: BP 124/71
[2024-11-30 16:36] LABS: Glucose - Point of Care 159 mg/dl (70-99)
--- NOTE | 2024-11-30 20:16 | HOSPNOTE ---
Patient admitted inpatient hospice for pain management that could not be managed in the outpatient setting. patient is on a morphine drip and needed a total of 5 breakthrough doses so far. Hospice will visit daily.
[2024-11-30 20:53] VITALS: BP 122/64
[2024-11-30] MEDS: REMOVE LIDOCAINE PATCH 1 PATCH REMOVE (21:18)
[2024-11-30] MEDS: MORPHINE SULFATE 4 MG IV ×2 (21:20→22:54)
[2024-11-30 23:37] VITALS: BP 126/63
[2024-12-01] MEDS: MORPHINE SULFATE 4 MG IV ×5 (01:30→15:26)
[2024-12-01] MEDS: VALIUM INJECTION 2 MG IV ×2 (03:20→21:25)
[2024-12-01] MEDS: MORPHINE 100 IV (06:09)
[2024-12-01 07:35] VITALS: BP 109/60
[2024-12-01] MEDS: LIDOCAINE 4% PATCH 1 PATCH TOPICAL (08:11)
--- NOTE | 2024-12-01 09:29 | CM ---
Reviewed the chart notes. CM continues to be available to patient/family.
Plan: GIP Hospice
--- NOTE | 2024-12-01 09:40 | W.PN.HOSP.TC ---
Today's Communication/Plan
-
Hospice care
Assessment / Plan
Assessment / Plan
Gen-awake, nonverbal
HEENT-NC, AT, anicteric
Neck-supple
CV-reg, no M, +S1/S2
Lungs-clear B/L
Abd-soft, NT, ND
Ext-no edema
Musculoskeletal-no cyanosis, clubbing
Skin-warm and dry
End-of-life care/hospice -continue IV morphine. Continue comfort measures.
AAA/Aortic stump pseudoaneurysm -mycotic aneurysm.
History of liver transplant
CHARISSE
COPD
Chronic anemia
paroxysmal atrial fibrillation
DNR
Anticipated Discharge: Today
Subjective/Interval History
-
Date of Service: December 01, 2024
Patient seen and examined. Awake, but nonverbal.
Objective Data
-
Vital Signs:
Vital Signs
Temp Pulse Resp BP Pulse Ox
98.6 F 85 18 109/60 81
12/01/24 07:35 12/01/24 07:35 12/01/24 07:35 12/01/24 07:35 12/01/24 07:35
I&O
11/30/24 12/01/24 12/02/24
06:59 06:59 06:59
Intake Total 420 / 420
Output Total 285 / 285
Balance 135 / 135
Review of Systems
-
Unable to obtain full review of systems at this time due to: Acuity and Patient Non-verbal
--- NOTE | 2024-12-01 10:45 | HOSPNOTE ---
No family was present during visit. Patient is unresponsive on a morphine drip and appears comfortable at this time. Patient continues to be inpatient appropriate for management of pain requiring IV medications. Patient will be seen daily.
Encouraged nurse to medicate prior to care or repositioning.
--- NOTE | 2024-12-01 11:26 | HOSPNOTE ---
Mike was sleeping comfortably at first, then showed some sudden agitation. [employer] Developer notified refuse and recycling worker Mireya, who responded immediately. No family was present. [employer] Developer provided emotional and spiritual support to patient through presence and
prayer; provided update to daughter Akanksha by phone and offered emotional support. [employer] Developer remains available.
[2024-12-01] MEDS: HALDOL 1 MG IV (11:41)
[2024-12-01] MEDS: LIDOCAINE 4% PATCH TOPICAL (12:23)
--- NOTE | 2024-12-01 15:05 | HOSPNOTE ---
SOFT METALS ENGRAVER HAND VISITED 74 YEAR OLD PATIENT TO CONDUCT ECONOMIC MANAGER ASSESSMENT. PATIENTLY RECENTLY ADMITTED ONTO HOSPICE SERVICES AND [facility] LEVEL OF CARE WITH THE PRIMARY DIAGNOSIS OF UNSPECIFIED SEVERE PROTEIN CALORIE MALNUTRITION. NURSE REPORTED
PATIENT'S MEDICATIONS ADMINISTERED AND PATIENT IS RESTING COMFORTABLY. ECONOMIC MANAGER GREETED PATIENT AND FAMILY MEMBER UPON ENTERING HIS ROOM. PATIENT ASLEEP AND APPEARED TO BE RESTING COMFORTABLY, EVIDENT BY HIS SNORING, NO SIGN OF PAIN AND/OR DISTRESS
OBSERVED HOWEVER, HE WOULD RAISE HIS EYEBROWS, MOVE HIS ARM OR LEG ECONOMIC MANAGER AND BRIANNA WERE TALKING. PATIENT'S DAUGHTER BRIANNA INTRODUCED HERSELF TO ECONOMIC MANAGER. SHE REPORTED THEY'RE OKAY THEIR MOTHER, PATIENT'S EX- PASSED 11/21/2024. EMOTIONAL
SUPPORT PROVIDED SAMMY HAS THREE CHILDREN GERARD, BRIANNA, AND MONTRELL, THEY ALL RESIDE LOCALLY, BRIANNA IS THE PRIMARY CAREGIVER AND POA. SHE REPORTED THEY ARE CLOSE AND ARE EACH OTHER SUPPORT, THEY TAKE TURNS VISITING WITH PATIENT TO ENSURE HE'S NOT
ALONE, HE HAS 6 GRANDCHILDREN, AND 3 GREAT GRANDCHILDREN; FAMILY APPEARED TO BE COPING APPROPRIATELY. SAMMY SERVED IN THE [employer], HE RECEIVED [employer] MEDICAL BENEFITS AND THEY PAID FOR ALL HIS PRESCRIPTIONS. 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 HE
LOVED BILLIARDS, FISHING, HUNTING, EAGLES, [employer], [place], AND BEING OUTDOORS. HE AND HIS FRIENDS WOULD GET TOGETHER ONCE A MONTH AND MEET UP FOR BREAKFAST, HE ENJOYED THAT WELL GOING ON THEIR FATHER/SON FISHING AND HUNTING TRIPS TO
THE [facility] IN THE [place] AND [place]. HE WAS RAISED CHUR[facility], HOWEVER, ONLY ATTENDED [facility], NO [facility]. HIS WISHES ARE TO BE CREMATED, ASHES SCATTERED IN THE [facility] WHERE HE WENT FISHING. BRIANNA REPORTED HER AND HER
BROTHERS SAID THEY WERE GOING TO GIVE SOME OF HIS ASHES TO HIS BUDDIES AND THEY COULD DO THEIR OWN THING AND THE FAMILY WILL DO THEIRS, [facility] LOC[facility] AT [address] [place] [id number] IS IN CHARGE
OF THE SERVICES. BEREAVEMENT SERVICES DECLINED AT THIS TIME. PRAYER AND EMOTIONAL SUPPORT PROVIDED
PATIENT MEETS [facility] FOR SN ASSESSMENTS AND MANAGEMENT OF PAIN REQUIRING IV MEDICATIONS THAT COULD NOT BE MANAGED AT HOME AND/OR IN AN OUTPATIENT SETTING. DISCHARGE PLANNING CONTINUES.
ECONOMIC MANAGER WILL PROVIDE SUPPORTIVE SERVICES ONCE A WEEK WHILE ON [facility] LEVEL OF CARE.
[2024-12-01] MEDS: ROBINUL 0.2 MG IV (16:13)
[2024-12-01 19:00] VITALS: BP 113/65
[2024-12-01] MEDS: REMOVE LIDOCAINE PATCH 1 PATCH REMOVE (21:25)
[2024-12-02] MEDS: ROBINUL 0.2 MG IV ×3 (00:21→12:51)
[2024-12-02] MEDS: MORPHINE SULFATE 4 MG IV ×9 (00:22→17:02)
[2024-12-02] MEDS: MORPHINE 100 IV ×2 (04:39→19:31)
[2024-12-02 07:35] VITALS: BP 102/73
[2024-12-02] MEDS: LIDOCAINE 4% PATCH 1 PATCH TOPICAL (08:50)
--- NOTE | 2024-12-02 09:33 | CM ---
Reviewed the chart notes. CM continues to be available to patient/family.
Plan: GIP hospice continues.
[2024-12-02] MEDS: VALIUM INJECTION 2 MG IV ×2 (11:45→14:12)
--- NOTE | 2024-12-02 12:32 | HOSPNOTE ---
Family is present and emotional support provided. Patient is on a morphine drip step 4. Patient appears somewhat agitated and was given valium which worked well and we changed the medication Q2 PRN (valium). Patient has no urine outuput noted in
harris bag. Patient is having periods of apnea lasting approximately 5 seconds. Patient continues to meet inpatient criteria for management of pain and agitation. Patient will be seen daily by hospice nurse.
--- NOTE | 2024-12-02 13:01 | W.PN.HOSP.TC ---
Today's Communication/Plan
-
Continue hospice care
Assessment / Plan
Assessment / Plan
Gen-comatose
HEENT-NC, AT, anicteric
Neck-supple
CV-reg, no M, +S1/S2
Lungs-clear B/L
Abd-soft, NT, ND
Ext-no edema
Musculoskeletal-no cyanosis, clubbing
Skin-warm and dry
End-of-life care/hospice -continue IV morphine infusion. Diazepam increased to every 2 hours IV as needed for agitation. Discussed with hospice nurse. Continue comfort measures.
AAA/Aortic stump pseudoaneurysm -mycotic aneurysm.
History of liver transplant
CHARISSE
COPD
Chronic anemia
paroxysmal atrial fibrillation
DNR
Family updated at the bedside.
Anticipated Discharge: Within 24 hours
Subjective/Interval History
-
Date of Service: December 02, 2024
Patient seen and examined. Looks comfortable, comatose.
Objective Data
-
Vital Signs:
Vital Signs
Temp Pulse Resp BP Pulse Ox
97.4 F 118 18 102/73 86
12/02/24 07:35 12/02/24 07:35 12/02/24 07:35 12/02/24 07:35 12/02/24 07:35
I&O
12/01/24 12/02/24 12/03/24
06:59 06:59 06:59
Intake Total 420 / 420 0 / 0
Output Total 285 / 285 900 / 900
Balance 135 / 135 -900 / -900
Review of Systems
-
Unable to obtain full review of systems at this time due to: Acuity
[2024-12-02 19:10] VITALS: BP 110/57
[2024-12-02] MEDS: REMOVE LIDOCAINE PATCH 1 PATCH REMOVE (19:30)
[2024-12-02] MEDS: MORPHINE SULFATE 6 MG IV (19:46)
[2024-12-03 07:00] VITALS: BP 136/81
[2024-12-03] MEDS: LIDOCAINE 4% PATCH 1 PATCH TOPICAL (08:47)
[2024-12-03] MEDS: MORPHINE SULFATE 6 MG IV ×2 (08:55→14:08)
[2024-12-03] MEDS: MORPHINE SULFATE 4 MG IV ×2 (10:52→13:26)
[2024-12-03] MEDS: VALIUM INJECTION 2 MG IV ×4 (11:20→18:25)
--- NOTE | 2024-12-03 11:22 | W.PN.HOSP.TC ---
Today's Communication/Plan
-
Continue current care
Assessment / Plan
Assessment / Plan
Gen-comatose
HEENT-NC, AT, anicteric
Neck-supple
CV-reg, no M, +S1/S2
Lungs-clear B/L
Abd-soft, NT, ND
Ext-no edema
Musculoskeletal-no cyanosis, clubbing
Skin-warm and dry
End-of-life care/hospice -continue IV morphine infusion. Diazepam increased to every 2 hours IV as needed for agitation. Discussed with hospice nurse. Continue comfort measures.
AAA/Aortic stump pseudoaneurysm -mycotic aneurysm.
History of liver transplant
CHARISSE
COPD
Chronic anemia
paroxysmal atrial fibrillation
DNR
Family updated at the bedside.
Anticipated Discharge: Within 24 hours
Subjective/Interval History
-
Date of Service: December 03, 2024
Patient seen and examined. Looks comfortable, is comatose.
Objective Data
-
Vital Signs:
Vital Signs
Temp Pulse Resp BP Pulse Ox
99 F 104 16 136/81 89
12/03/24 07:00 12/03/24 07:00 12/03/24 07:00 12/03/24 07:00 12/03/24 07:00
I&O
12/02/24 12/03/24 12/04/24
06:59 06:59 06:59
Intake Total 0 / 0 0 / 0
Output Total 900 / 900 276 / 276
Balance -900 / -900 -276 / -276
Review of Systems
-
Unable to obtain full review of systems at this time due to: Acuity
--- NOTE | 2024-12-03 12:06 | CM ---
Reviewed the chart notes. Morphine gtt continues. GIP Hospice continues.
--- NOTE | 2024-12-03 12:27 | HOSPNOTE ---
Patient was just medicated prior to my visit and appears comfortable. Patient still does grimace when turned or repositioned and is then medicated prior. Lungs are course and patient does complain of abdominal pain. Patient does have IV medications
dread and lilyinol which seems to work well for patient. Patient continues to be inpatient appropriate for management of pain. Patient will be seen daily.
[2024-12-03] MEDS: MORPHINE 100 IV ×2 (13:43→23:21)
[2024-12-03] MEDS: MORPHINE SULFATE 8 MG IV ×2 (17:26→20:20)
[2024-12-03] MEDS: REMOVE LIDOCAINE PATCH REMOVE (20:30)
[2024-12-03] MEDS: ROBINUL 0.2 MG IV (23:40)
[2024-12-04] MEDS: ROBINUL 0.2 MG IV ×3 (06:02→22:23)
[2024-12-04 07:00] VITALS: BP 132/77
[2024-12-04] MEDS: MORPHINE SULFATE 8 MG IV ×5 (08:26→23:57)
--- NOTE | 2024-12-04 08:32 | W.PN.HOSP.TC ---
Today's Communication/Plan
-
Continue hospice care
Assessment / Plan
Assessment / Plan
Gen-comatose
HEENT-NC, AT, anicteric
Neck-supple
CV-reg, no M, +S1/S2
Lungs-clear B/L
Abd-soft, NT, ND
Ext-no edema
Musculoskeletal-no cyanosis, clubbing
Skin-warm and dry
End-of-life care/hospice -continue IV morphine infusion. Diazepam increased to every 2 hours IV as needed for agitation. Discussed with hospice nurse. Continue comfort measures. Fever noted by nursing, as needed Tylenol.
AAA/Aortic stump pseudoaneurysm -mycotic aneurysm.
History of liver transplant
CHARISSE
COPD
Chronic anemia
paroxysmal atrial fibrillation
DNR
Anticipated Discharge: Today
Subjective/Interval History
-
Date of Service: December 04, 2024
Patient seen and examined. Looks relatively comfortable, agonal breathing, comatose.
Objective Data
-
Vital Signs:
Vital Signs
Temp Pulse Resp BP Pulse Ox
99 F 104 16 136/81 89
12/03/24 07:00 12/03/24 07:00 12/03/24 07:00 12/03/24 07:00 12/03/24 12:47
I&O
12/03/24 12/04/24 12/05/24
06:59 06:59 06:59
Intake Total 0 / 0 0 / 0
Output Total 276 / 276 500 / 500
Balance -276 / -276 -500 / -500
Review of Systems
-
Unable to obtain full review of systems at this time due to: Acuity
--- NOTE | 2024-12-04 08:57 | CM ---
Reviewed the chart notes. Continue with GIP hospice.
[2024-12-04] MEDS: TYLENOL/FEVERALL 650 MG RECTAL ×2 (09:21→16:03)
[2024-12-04] MEDS: VALIUM INJECTION 2 MG IV ×3 (09:21→16:03)
[2024-12-04] MEDS: LIDOCAINE 4% PATCH 1 PATCH TOPICAL (09:22)
--- NOTE | 2024-12-04 11:00 | HOSPNOTE ---
Patient is on step 8 of a morphine drip, appears much more comfortable since patient has been medicated prior to care and repositioning. No family was present during visit. Patient continues to be inpatient appropriate for management of pain and
agitation. Patient will be seen daily. Patient is actively dying.
[2024-12-04] MEDS: MORPHINE 100 IV (12:25)
[2024-12-04] MEDS: REMOVE LIDOCAINE PATCH 1 PATCH REMOVE (22:30)
[2024-12-05] MEDS: MORPHINE 100 IV ×3 (00:21→21:03)
[2024-12-05 03:00] VITALS: BP 111/78
[2024-12-05] MEDS: MORPHINE SULFATE 8 MG IV ×3 (03:24→04:34)
[2024-12-05] MEDS: ROBINUL 0.2 MG IV ×4 (03:26→23:48)
[2024-12-05] MEDS: TYLENOL/FEVERALL 650 MG RECTAL ×2 (03:27→23:48)
--- NOTE | 2024-12-05 06:22 | PTCARENOTE ---
0300 pt temp 103.6, Tylenol 650 mg given CA, 0400 temp 104.3-ice packs applied to pt sides/under arms. 0500 temp 103.1, 0618 temp down to 0618
0438 pt inc to to step 6 Morphine 10mg/hr
[2024-12-05 07:00] VITALS: BP 94/61
[2024-12-05] MEDS: LIDOCAINE 4% PATCH TOPICAL (08:23)
[2024-12-05] MEDS: MORPHINE SULFATE 4 MG IV (08:31)
--- NOTE | 2024-12-05 08:57 | CM ---
Reviewed the chart notes. CM continues to be available to patient/family. Continue with GIP hospice.
--- NOTE | 2024-12-05 10:29 | HOSPNOTE ---
Patient assessed positioned on his right side in the bed, unresponsive, noisy agonal respirations with episodes of apnea noted. No family currently at bedside. Lungs coarse with rhonchi to auscultation, heart rate and rhythm is tachycardic,
hypoactive bowel sounds. Mottling noted to the bilateral feet and knees, cyanosis to nail beds. Mouth care performed, patient with grimacing with provision of care. This SN spoke with patient's floor RN requesting a prn dose of morphine be
administered. She states that she did just give a dose prior to turning and repositioning. Reinforced to not hesitate to administer morphine prn for any nonverbal signs of discomfort. Clear understanding verbalized. Floor Rn requests a scopalamine
patch be ordered due to terminal secretions. This SN outreach to Dr. Guzman. Patient remains GIP for pain and dyspnea management and titration of medications.
[2024-12-05] MEDS: TRANSDERM-SCOP 1 PATCH TRANSDERM (10:58)
--- NOTE | 2024-12-05 13:19 | W.PN.HOSP.TC ---
Today's Communication/Plan
-
Continue current care
Assessment / Plan
Assessment / Plan
Gen-comatose
HEENT-NC, AT, anicteric
Neck-supple
CV-reg, no M, +S1/S2
Lungs-clear B/L
Abd-soft, NT, ND
Ext-no edema
Musculoskeletal-no cyanosis, clubbing
Skin-warm and dry
End-of-life care/hospice -continue IV morphine infusion. Diazepam increased to every 2 hours IV as needed for agitation. Discussed with hospice nurse. Continue comfort measures. Fever noted by nursing, as needed Tylenol.
Nursing requesting scopolamine patch to help with excessive secretions. Already on Robinul. Discussed with nursing and hospice nurse that the secretions are not harmful to the patient, do not cause any distress.
AAA/Aortic stump pseudoaneurysm -mycotic aneurysm.
History of liver transplant
CHARISSE
COPD
Chronic anemia
paroxysmal atrial fibrillation
DNR
Anticipated Discharge: Within 24 hours
Subjective/Interval History
-
Date of Service: December 05, 2024
Patient seen and examined, agonal breathing. Comatose.
Objective Data
-
Vital Signs:
Vital Signs
Temp Pulse Resp BP Pulse Ox
100.7 F H 104 16 94/61 86
12/05/24 07:00 12/05/24 07:00 12/05/24 07:00 12/05/24 07:00 12/05/24 07:00
I&O
12/04/24 12/05/24 12/06/24
06:59 06:59 06:59
Intake Total 0 / 0 0 / 0
Output Total 500 / 500 575 / 575
Balance -500 / -500 -575 / -575
Review of Systems
-
Unable to obtain full review of systems at this time due to: Acuity
[2024-12-05] MEDS: MORPHINE SULFATE 10 MG IV (18:17)
[2024-12-05] MEDS: REMOVE LIDOCAINE PATCH REMOVE (19:42)
[2024-12-05 19:50] VITALS: BP 98/65
--- NOTE | 2024-12-05 20:00 | PTCARENOTE ---
Applied wet compresses to patients forhead, back of neck, wrists and lower extremities to bring down temp. cooled room and removed excess linens.
--- NOTE | 2024-12-06 00:12 | PTCARENOTE ---
Gave patient FeverAll suppository as temp is still elevated. Re-applied cool compresses.
[2024-12-06] MEDS: MORPHINE 100 IV ×2 (06:39→17:04)
--- NOTE | 2024-12-06 06:49 | PTCARENOTE ---
Zero morphine remaining in priior bag when new back hung at 12/05/242102.
[2024-12-06 07:45] VITALS: BP 90/58
[2024-12-06] MEDS: LIDOCAINE 4% PATCH TOPICAL (08:39)
[2024-12-06] MEDS: ROBINUL 0.2 MG IV ×3 (10:05→22:05)
[2024-12-06] MEDS: MORPHINE SULFATE 10 MG IV ×2 (10:05→17:29)
--- NOTE | 2024-12-06 10:26 | HOSPNOTE ---
Patient unresponsive to any stimulation, actively dying. FLACC 0 during assessment. Currently on Morphine gtt step 6, PRN dose of morphine and Robinul given prior to visit for moaning and gurgling. Patient appears comfortable at this time breathing
is non labored; noisy agonal respirations; 30-35 sec of apnea. Lower extremities cool and mottled. BS absent. Vaughn with approx. 75ml casey urine. No family at bedside. Coordinated care with Carla RANDHAWA. Patient will remain GIP for management of pain
and dyspnea.
--- NOTE | 2024-12-06 11:11 | W.PN.HOSP.TC ---
Today's Communication/Plan
-
Continue hospice care
Assessment / Plan
Assessment / Plan
Gen-comatose
HEENT-NC, AT, anicteric
Neck-supple
CV-reg, no M, +S1/S2
Lungs-clear B/L
Abd-soft, NT, ND
Ext-no edema
Musculoskeletal-no cyanosis, clubbing
Skin-warm and dry
End-of-life care/hospice -continue IV morphine infusion. Diazepam increased to every 2 hours IV as needed for agitation. Discussed with hospice nurse. Continue comfort measures. Fever noted by nursing, as needed Tylenol.
Nursing requesting scopolamine patch to help with excessive secretions. Already on Robinul. Discussed with nursing and hospice nurse that the secretions are not harmful to the patient, do not cause any distress.
AAA/Aortic stump pseudoaneurysm -mycotic aneurysm.
History of liver transplant
CHARISSE
COPD
Chronic anemia
paroxysmal atrial fibrillation
DNR
Anticipated Discharge: Within 24 hours
Subjective/Interval History
-
Date of Service: December 06, 2024
Patient seen and examined. Looks comfortable, comatose.
Objective Data
-
Vital Signs:
Vital Signs
Temp Pulse Resp BP Pulse Ox
98.1 F 83 12 90/58 84
12/06/24 07:45 12/06/24 07:45 12/06/24 07:45 12/06/24 07:45 12/06/24 07:45
I&O
12/05/24 12/06/24 12/07/24
06:59 06:59 06:59
Intake Total 0 / 0 120 / 120
Output Total 575 / 575 450 / 450
Balance -575 / -575 -330 / -330
Review of Systems
-
Unable to obtain full review of systems at this time due to: Acuity
[2024-12-06 19:34] VITALS: BP 110/72
[2024-12-06] MEDS: REMOVE LIDOCAINE PATCH REMOVE (20:08)
[2024-12-06] MEDS: FLUSH (NSS) 2 FLUSH IV ×2 (22:06→22:28)
[2024-12-06] MEDS: VALIUM INJECTION 2 MG IV (22:28)
[2024-12-07] MEDS: MORPHINE 100 IV (01:35)
[2024-12-07] MEDS: ROBINUL 0.2 MG IV (02:38)
[2024-12-07] MEDS: FLUSH (NSS) 2 FLUSH IV ×2 (02:39→04:04)
[2024-12-07] MEDS: VALIUM INJECTION 2 MG IV (04:04)
--- NOTE | 2024-12-07 06:54 | W.PN.DEATH ---
Pronouncement of
-
Called to see patient to pronounce.
No spontaneous heart tones or respirations noted.
Patient not responsive to verbal stimuli.
Patient is pronounced .
Time of : 06:10
Date of : 12/07/24
Cause of : septic thrombophlebitis
Family Notified: Yes (daughter made aware and she will notify son.)
--- NOTE | 2024-12-07 12:10 | FALL ---
Description of Fall:
Pt was found near his bed est time of 8am by pct as he passed by his room. Pt was on all fours at bottom of his bed. He was confused and had received [id number] for his pain on slot shift supervisor. Pt upon assessment was confused but also c/o pain to
his back and abd. Doctor notified. Pt assisted back into bed and morphine 1mg given for his abd pain and bed alarm placed on his bed. Pt is on Hospice at this present time of the fall.
Injuries Noted: Right forearm a skin was noted and dressed
Action Taken:right forearm skin tear dressed
Name of Provider Notified: Dr. Newman
== END 2024-12-07 07:00 | disposition expired | DRG 951 ==
LOC: 2 NORTH 12:39
PROVIDERS: ADMITTING PHYSICIAN Internal Medicine; ATTENDING PHYSICIAN Hospitalist
DX: Z51.5 Encounter for palliative care (principal); N17.9 Acute kidney failure, unspecified; Z94.4 Liver transplant status; I71.40 Abdominal aortic aneurysm, without rupture, unspecified; E86.0 Dehydration; N18.32 Chronic kidney disease, stage 3b; E11.22 Type 2 diabetes mellitus with diabetic chronic kidney disease; I12.9 Hypertensive chronic kidney disease with stage 1 through stage 4 chronic kidney disease, or unspecified chronic kidney disease; D63.8 Anemia in other chronic diseases classified elsewhere; J44.9 Chronic obstructive pulmonary disease, unspecified; I48.0 Paroxysmal atrial fibrillation; E78.5 Hyperlipidemia, unspecified; K21.9 Gastro-esophageal reflux disease without esophagitis; Z66 Do not resuscitate; I80.9 Phlebitis and thrombophlebitis of unspecified site; I72.4 Aneurysm of artery of lower extremity; F41.9 Anxiety disorder, unspecified
CPT/HCPCS: 82962